=== PATIENT | female | born 1950 | race African-American/Black ===

== ENCOUNTER 2018-01-23 10:39 | Emergency (ER) | payer OTHER ==
[2018-01-23] MEDS ORDERED: ONDANSETRON 4 MG (ODT) TAB ONE (12:17)
--- NOTE | 2018-01-23 12:40 | RAD REPORT ---
EXAM DESCRIPTION: CT - Head Brain Wo Cont - 01/23/2018 12:29 pm CLINICAL HISTORY: Headache, hypertension. COMPARISON: 11/28/2017, 10/21/2016 TECHNIQUE: All CT scans are performed using dose optimization technique as appropriate and may inclu de automated exposure control or mA/KV adjustment according to patient size. FINDINGS: No intracranial hemorrhage, hydrocephalus or extra-axial fluid collection.Mild generalized brain atrophy is present with mild periventricular and deep white matter chronic microvascular ische leonard changes.No areas of brain edema or evidence of midline shift. The paranasal sinuses and mastoids are clear. The calvarium is intact. IMPRESSION: No acute intracranial abnormality.
--- NOTE | 2018-01-23 12:53 | EDPHYS ---
Physician Documentation [facility] Name: Cole Cadena Age: 67 yrs Sex: Female : 1950 Arrival Date: 01/23/2018 Time: 10:45 Bed 13 Private MD: ED Physician Alvin Cunha HPI: 01/23 12:11 This 67 yrs old Black Female presents to ER via Ambulatory with complaints of High snw Blood Pressure, Headache. 12:11 The patient has elevated blood pressure and discovered this at home. Onset: The snw symptoms/episode began/occurred gradually, yesterday. Modifying factors: The symptoms are aggravated by pt was nauseated and vomiting and did not take her bp medications today. Associated signs and symptoms: The patient has no apparent associated signs or symptoms. Severity of symptoms: At its worst the blood pressure was 210 mm Hg. It is unknown whether or not the patient has had similar symptoms in the past. The patient has not recently seen a physician, the patient's primary care provider is Dr. Dr. Hearn. . 12:13 on entrance to pt's room, she asked me to change the channel on her tv. snw Historical: - Allergies: 10:54 Tramadol HCl; hj - Home Meds: 10:54 amlodipine 10 mg tab 1 tab once daily for Hypertension [Active]; Hydrochlorothiazide hj Oral [Active]; Hydrocodone-Acetaminophen Oral 1 cap twice a day [Active]; lisinopril 40 mg Oral tab 1 tab once daily [Active]; omeprazole 20 mg Oral cpDR 1 cap once daily for Gastroesophageal reflux [Active]; - PMHx: 10:54 Anxiety; Depression; GERD; Hypertension; hj - PSHx: 10:54 Tubal ligation; ankle (left); hj - Immunization history:: Adult Immunizations up to date. - Social history:: Smoking status: unknown. ROS: 12:09 Constitutional: Negative for fever, chills, and weight loss, + right sided facial pain snw Eyes: Negative for injury, pain, redness, and discharge, ENT: Negative for injury, pain, and discharge, Neck: Negative for injury, pain, and swelling, Cardiovascular: Negative for chest pain, palpitations, and edema, Respiratory: Negative for shortness of breath, cough, wheezing, and pleuritic chest pain, Abdomen/GI: Positive for abdominal tenderness, nausea, vomiting, diarrhea, negative for constipation, Back: Negative for injury and pain, : Negative for injury, bleeding, discharge, and swelling, MS/Extremity: Negative for injury and deformity, Skin: Negative for injury, rash, and discoloration, Neuro: Negative for headache, weakness, numbness, tingling, and seizure. Exam: 12:09 Constitutional: This is a well developed, well nourished patient who is awake, alert, snw and in no acute distress. Head/Face: Normocephalic, atraumatic. Eyes: Pupils equal round and reactive to light, extra-ocular motions intact. Lids and lashes normal. Conjunctiva and sclera are non-icteric and not injected. Cornea within normal limits. Periorbital areas with no swelling, redness, or edema. ENT: Nares patent. No nasal discharge, no septal abnormalities noted. Tympanic membranes are normal and external auditory canals are clear. Oropharynx with no redness, swelling, or masses, exudates, or evidence of obstruction, uvula midline. Mucous membranes moist. Neck: Trachea midline, no thyromegaly or masses palpated, and no cervical lymphadenopathy. Supple, full range of motion without nuchal rigidity, or vertebral point tenderness. No Meningismus. Chest/axilla: Normal chest wall appearance and motion. Nontender with no deformity. No lesions are appreciated. Cardiovascular: Regular rate and rhythm with a normal S1 and S2. No gallops, murmurs, or rubs. Normal PMI, no JVD. No pulse deficits. Respiratory: Lungs have equal breath sounds bilaterally, clear to auscultation and percussion. No rales, rhonchi or wheezes noted. No increased work of breathing, no retractions or nasal flaring. Abdomen/GI: Soft, non-tender, with normal bowel sounds. No distension or tympany. No guarding or rebound. No evidence of tenderness throughout. Back: No spinal tenderness. No costovertebral tenderness. Full range of motion. Skin: Warm, dry with normal turgor. Normal color with no rashes, no lesions, and no evidence of cellulitis. MS/ Extremity: Pulses equal, no cyanosis. Neurovascular intact. Full, normal range of motion. Neuro: Awake and alert, GCS 15, oriented to person, place, time, and situation. Cranial nerves II-XII grossly intact. Motor strength 5/5 in all extremities. Sensory grossly intact. Cerebellar exam normal. Normal gait. Vital Signs: 10:54 BP 159 / 105; Pulse 85; Resp 18; Temp 98.3(TE); Pulse Ox 99% on R/A; Weight 95.25 kg; hj Height 5 ft. 2 in. (157.48 cm); Pain 9/10; 12:08 BP 156 / 112; Pulse 72; Resp 18; Pulse Ox 99% ; aj1 13:46 BP 136 / 105; Pulse 73; Resp 18; Pulse Ox 99% on R/A; aj1 10:54 Body Mass Index 38.41 (95.25 kg, 157.48 cm) hj MDM: 11:54 Patient medically screened. snw 12:50 Data reviewed: vital signs, nurses notes. Data interpreted: Pulse oximetry: on room air snw is 99 %. Interpretation: normal. Counseling: I had a detailed discussion with the patient and/or guardian regarding: the historical points, exam findings, and any diagnostic results supporting the discharge/admit diagnosis, the presence of at least one elevated blood pressure reading (>120/80) during this emergency department visit, radiology results, the need for outpatient follow up, to return to the emergency department if symptoms worsen or persist or if there are any questions or concerns that arise at home. Special discussion: Based on the history and exam findings, there is no indication for further emergent testing or inpatient evaluation. I discussed with the patient/guardian the need to see the neurologist for further evaluation of the symptoms. I discussed with the patient/guardian the need to see the primary care provider for further evaluation of the symptoms. Repeated CT, danger of excess radiation. 01/23 12:13 Order name: CT Head Brain wo Cont; Complete Time: 12:50 snw Administered Medications: 12:20 Drug: Zofran 4 mg Route: PO; aj1 13:50 Follow up: Response: No adverse reaction aj1 Disposition: 01/23/18 12:52 Discharged to Home. Impression: Headache, Essential (primary) hypertension, facial pain. - Condition is Stable. - Discharge Instructions: General Headache Without Cause, Hypertension, DASH Eating Plan, Managing Your High Blood Pressure. - Prescriptions for Zyrtec 10 mg Oral Tablet - take 1 tablet by ORAL route once daily As needed; 20 tablet. orphenadrine citrate 100 mg Oral Tablet Sustained Release - take 1 tablet by ORAL route 2 times per day As needed; 20 tablet. promethazine 25 mg Oral Tablet - take 1 tablet by ORAL route every 6 hours As needed; 20 tablet. - Medication Reconciliation Form, Thank You Letter, Antibiotic Education, Prescription Opioid Use form. - Follow up: Private Physician; When: Tomorrow; Reason: Recheck today's complaints, Continuance of care, Re-evaluation by your physician. Follow up: Emergency Department; When: As needed; Reason: Worsening of condition. Addendum: 01/26/2018 06:11 Co-signature as Attending Physician, Alvin Cunha MD Available for consultation at p s1 all times. . Signatures: Dispatcher [employer] EDMS Brittany Palomino RN RN aj1 Danika Allison, SURGERY AIDE-C SURGERY AIDE-Csnw Parminder Augustine RN RN hj Alvin Cunha MD MD ps1 Corrections: (The following items were deleted from the chart) 01/23 12:11 12:09 Constitutional: Negative for fever, chills, and weight loss, Eyes: Negative for snw injury, pain, redness, and discharge, ENT: Negative for injury, pain, and discharge, Neck: Negative for injury, pain, and swelling, Cardiovascular: Negative for chest pain, palpitations, and edema, Respiratory: Negative for shortness of breath, cough, wheezing, and pleuritic chest pain, Abdomen/GI: Positive for abdominal tenderness, nausea, vomiting, diarrhea, negative for constipation, Back: Negative for injury and pain, : Negative for injury, bleeding, discharge, and swelling, MS/Extremity: Negative for injury and deformity, Skin: Negative for injury, rash, and discoloration, Neuro: Negative for headache, weakness, numbness, tingling, and seizure, snw
--- NOTE | 2018-01-23 12:53 | ER ---
Nurse's Notes [facility] Name: Cole Cadena Age: 67 yrs Sex: Female : 1950 Arrival Date: 01/23/2018 Time: 10:45 Bed 13 Private MD: Diagnosis: Headache;Essential (primary) hypertension;facial pain Presentation: 01/23 10:51 Presenting complaint: Patient states: yesterday, i started having pain on my R side of hj the face and head, and my BP was up; did not take aBP meds today;. Transition of care: patient was not received from another setting of care. Onset of symptoms was January 23, 2018. Care prior to arrival: None. 10:51 Method Of Arrival: Ambulatory 10:51 Acuity: DYLAN 3 hj Triage Assessment: 10:54 Headache History: The patient has had previous headaches. General: Appears in no hj apparent distress. uncomfortable, Behavior is calm, cooperative, appropriate for age. Pain: Complains of pain in head Pain currently is 9 out of 10 on a pain scale. Pain began Also complains of nausea. Neuro: Level of Consciousness is awake, alert, obeys commands, Oriented to person, place, time, situation, Appropriate for age. Historical: - Allergies: 10:54 Tramadol HCl; hj - Home Meds: 10:54 amlodipine 10 mg tab 1 tab once daily for Hypertension [Active]; Hydrochlorothiazide hj Oral [Active]; Hydrocodone-Acetaminophen Oral 1 cap twice a day [Active]; lisinopril 40 mg Oral tab 1 tab once daily [Active]; omeprazole 20 mg Oral cpDR 1 cap once daily for Gastroesophageal reflux [Active]; - PMHx: 10:54 Anxiety; Depression; GERD; Hypertension; hj - PSHx: 10:54 Tubal ligation; ankle (left); hj - Immunization history:: Adult Immunizations up to date. - Social history:: Smoking status: unknown. Screenin:08 Abuse screen: Denies threats or abuse. Denies injuries from another. Nutritional aj1 screening: No deficits noted. Tuberculosis screening: No symptoms or risk factors identified. 13:48 Fall Risk None identified. aj1 Assessment: 12:08 General: Appears in no apparent distress. uncomfortable, Behavior is calm, cooperative, aj1 appropriate for age. Pain: Complains of pain in occipital area, base of the skull and neck Pain does not radiate. Pain currently is 9 out of 10 on a pain scale. Quality of pain is described as throbbing, Pain began 1 day ago. Is continuous, Alleviated by nothing. Aggravated by nothing. Neuro: Level of Consciousness is awake, alert, obeys commands, Oriented to person, place, time, situation, Staff Developer are equal bilaterally Moves all extremities. Full function Speech is normal, Facial symmetry appears normal, Pupils are PERRLA, Intact. Cardiovascular: Heart tones S1 S2 present Patient's skin is warm and dry. Respiratory: Airway is patent Respiratory effort is even, unlabored, Respiratory pattern is regular, symmetrical. GI: No signs and/or symptoms were reported involving the gastrointestinal system. : No signs and/or symptoms were reported regarding the genitourinary system. EENT: No signs and/or symptoms were reported regarding the EENT system. Derm: No signs and/or symptoms reported regarding the dermatologic system. Skin is pink, warm \T\ dry. normal. Musculoskeletal: No signs and/or symptoms reported regarding the musculoskeletal system. Circulation, motion, and sensation intact. 13:21 Reassessment: Patient appears in no apparent distress at this time. No changes from aj1 previously documented assessment. Patient and/or family updated on plan of care and expected duration. Pain level reassessed. Patient is alert, oriented x 3, equal unlabored respirations, skin warm/dry/pink. Vital Signs: 10:54 BP 159 / 105; Pulse 85; Resp 18; Temp 98.3(TE); Pulse Ox 99% on R/A; Weight 95.25 kg; hj Height 5 ft. 2 in. (157.48 cm); Pain 9/10; 12:08 BP 156 / 112; Pulse 72; Resp 18; Pulse Ox 99% ; aj1 13:46 BP 136 / 105; Pulse 73; Resp 18; Pulse Ox 99% on R/A; aj1 10:54 Body Mass Index 38.41 (95.25 kg, 157.48 cm) ED Course: 10:45 Patient arrived in ED. mr 10:53 Triage completed. hj 10:54 Arm band placed on left wrist. hj 11:53 Danika Allison [facility]NP-C [facility]. snw 11:53 Alvin Cunha MD is Attending Physician. snw 12:08 Brittany Palomino, RN is Primary Nurse. aj1 12:29 CT Head Brain wo Cont In Process Unspecified. EDMS 13:48 Patient has correct armband on for positive identification. aj1 13:48 No provider procedures requiring assistance completed. aj1 13:48 Patient did not have IV access during this emergency room visit. aj1 Administered Medications: 12:20 Drug: Zofran 4 mg Route: PO; aj1 13:50 Follow up: Response: No adverse reaction aj1 Outcome: 12:52 Discharge ordered by . snw 13:49 Discharged to home ambulatory. aj1 13:49 Condition: good 13:49 Discharge instructions given to patient, Instructed on discharge instructions, follow up and referral plans. medication usage, Demonstrated understanding of instructions, follow-up care, medications, Prescriptions given X 3. 13:50 Patient left the ED. aj1 Signatures: Dispatcher [employer] EDAR Brittany Palomino, RN RN aj1 Danika Allison, SENIOR MEDIA BUYER-C SENIOR MEDIA BUYER-Noy Meyers Henry RN RN
[2018-01-23 13:56] VITALS: TEMP 98.3; O2SAT 99
[2018-01-23 13:59] VITALS: BP 136/105
== END 2018-01-23 13:50 | disposition home or self-care (01) ==
LOC: ER 10:39
DX: I10 Essential (primary) hypertension (principal); F41.9 Anxiety disorder, unspecified; F32.9 Major depressive disorder, single episode, unspecified; K21.9 Gastro-esophageal reflux disease without esophagitis; Z88.6 Allergy status to analgesic agent
CPT/HCPCS: 70450; 99283

== ENCOUNTER 2019-02-11 12:14 | Observation (INO) | payer OTHER ==
--- OUTSIDE RECORDS SUMMARY | 2019-02-11 12:20 | XMS REPORT | Clinical Summary ---
:1950 Author Organization [facility] Address [address] [place] [address] Care Team Providers Name Role Phone Jonelle Milian MD Primary Care Provider Allergies Active Allergy Reactions Severity Noted Date Comments Tramadol 12/11/2018 Medications Medication Sig Dispensed Refills Start Date End Date Status ALPRAZolam (XANAX) 2 MG Take 2 mg by 0 Active tablet mouth 3 (three) times daily as needed for Sleep. HYDROcodone-acetaminophen Take 1 tablet 0 Active (NORCO 7.5-325) 7.5-325 by mouth 2 mg per tablet (two) times daily as needed for Pain. carvedilol (COREG) 25 MG Take 25 mg by 0 Active tablet mouth 2 (two) times daily with breakfast and dinner. cycloSPORINE (RESTASIS) Place 1 drop 0 Active 0.05 % ophthalmic into both eyes emulsion 2 (two) times daily. predniSONE (DELTASONE) 20 Take 20 mg by 0 Active MG tablet mouth daily. amLODIPine (NORVASC) 10 Take 10 mg by 0 Active MG tablet mouth daily. aspirin 81 MG EC tablet Take 1 tablet 30 tablet 0 12/13/2018 (81 mg total) 9 by mouth daily for 30 days. atorvastatin (LIPITOR) 80 Take 1 tablet 30 tablet 0 12/13/2018 MG tablet (80 mg total) 9 by mouth nightly for 30 days. hydrALAZINE (APRESOLINE) Take 1 tablet 90 tablet 0 12/13/2018 25 MG tablet (25 mg total) 9 by mouth every 8 (eight) hours for 30 days. hydroCHLOROthiazide Take 1 tablet 30 tablet 0 12/13/2018 (HYDRODIURIL) 25 MG (25 mg total) 9 tablet by mouth daily for 30 days. lisinopril Take 1 tablet 30 tablet 0 12/13/2018 (PRINIVIL,ZESTRIL) 40 MG (40 mg total) 9 tablet by mouth daily for 30 days. Active Problems Problem Noted Date NSTEMI (non-ST elevation myocardial infarction) 12/11/2018 Encounters Date Type Specialty Care Team Description 01/01/2019 Telephone Cardiology Vaibhav Kwong NO SHOW APPT MD [facility] 12/13/2018 Travel 12/12/2018 Surgery Vaibhav Kwong L CATH & PCI MD [facility] ([place] 12/11/2018 - Hospital Encounter General Internal Jonelle Milian NSTEMI (non-ST 12/13/2018 Medicine MD [facility] elevation myocardial infarction) (HCC) (Primary Dx) after 02/10/2018 Social History Tobacco Use Types Packs/Day Years Used Date Never Smoker Smokeless Tobacco: Never Used Sex Assigned at Date Recorded Not on file Job Start Date Occupation Industry Not on file Not on file Not on file Travel History Travel Start Travel End No recent travel history available. Last Filed Vital Signs Vital Sign Reading Time Taken Blood Pressure 162/88 12/13/2018 11:55 [facility] Pulse 86 12/13/2018 11:55 [facility] Temperature 37.5 C (99.5 F) 12/13/2018 11:55 [facility] Respiratory Rate 20 12/13/2018 11:55 [facility] Oxygen Saturation 96% 12/13/2018 11:55 [facility] Inhaled Oxygen Concentration - - Weight 98.4 kg (217 lb) 12/11/2018 4:45 [facility] Height 157.5 cm (5' 2") 12/11/2018 4:45 [facility] Body Mass Index 39.69 12/11/2018 4:45 [facility] Plan of Treatment Not on file Procedures Procedure Name Priority Date/Time Associated Comments Diagnosis REPORT OF PROCEDURE - 12/17/2018 10:51 ENDOSCOPY SCAN AM CDT RHYTHM STRIP - SCAN 12/17/2018 10:51 AM CDT CARDIAC CATH REPORT - 12/17/2018 10:51 SCAN AM CDT POCT-GLUCOSE METER Routine 12/13/2018 12:03 Results for this [facility] procedure are in the results section. CALCIUM, IONIZED Routine 12/13/2018 4:52 Results for this [facility] procedure are in the results section. CBC W/PLT COUNT & AUTO Routine 12/13/2018 4:50 Results for this DIFFERENTIAL [facility] procedure are in the results section. CBC W/PLT COUNT & AUTO Routine 12/13/2018 4:50 Results for this DIFFERENTIAL [facility] procedure are in the results section. PHOSPHORUS Routine 12/13/2018 4:50 Results for this [facility] procedure are in the results section. MAGNESIUM Routine 12/13/2018 4:50 Results for this [facility] procedure are in the results section. PROTHROMBIN TIME/INR Routine 12/13/2018 4:50 Results for this [facility] procedure are in the results section. PT/APTT Routine 12/13/2018 4:50 Results for this [facility] procedure are in the results section. HEPATIC FUNCTION PANEL Routine 12/13/2018 4:50 Results for this [facility] procedure are in the results section. BASIC METABOLIC PANEL Routine 12/13/2018 4:50 Results for this (7) [facility] procedure are in the results section. L CATH & PCI 12/12/2018 1:00 Acute coronary [facility] syndrome (HCC) PHOSPHORUS Routine 12/12/2018 4:38 Results for this [facility] procedure are in the results section. MAGNESIUM Routine 12/12/2018 4:38 Results for this [facility] procedure are in the results section. PROTHROMBIN TIME/INR Routine 12/12/2018 4:38 Results for this [facility] procedure are in the results section. PT/APTT Routine 12/12/2018 4:38 Results for this [facility] procedure are in the results section. HEPATIC FUNCTION PANEL Routine 12/12/2018 4:38 Results for this [facility] procedure are in the results section. CALCIUM, IONIZED Routine 12/12/2018 4:38 Results for this [facility] procedure are in the results section. BASIC METABOLIC PANEL Routine 12/12/2018 4:38 Results for this (7) [facility] procedure are in the results section. TROPONIN I Routine 12/11/2018 3:18 Results for this [facility] procedure are in the results section. URINE CULTURE Routine 12/11/2018 2:52 Results for this [facility] procedure are in the results section. ECHOCARDIOGRAM REPORT - 12/11/2018 10:50 SCAN AM [facility] CT CHEST PE TEST DESIGN STAT 12/11/2018 9:30 Results for this [facility] procedure are in the results section. XR CHEST 1 VIEW Routine 12/11/2018 8:50 Results for this PORTABLE/BEDSIDE [facility] procedure are in the results section. 2D ECHO W/ DOPPLER Routine 12/11/2018 8:38 Results for this (CW/PW/COLOR) [facility] procedure are in the results section. CBC W/PLT COUNT & AUTO Routine 12/11/2018 6:48 Results for this DIFFERENTIAL [facility] procedure are in the results section. HEMOGLOBIN A1C Routine 12/11/2018 6:48 Results for this [facility] procedure are in the results section. LIPID PANEL Routine 12/11/2018 6:48 Results for this [facility] procedure are in the results section. MAGNESIUM Routine 12/11/2018 6:48 Results for this [facility] procedure are in the results section. COMPREHENSIVE METABOLIC Routine 12/11/2018 6:48 Results for this PANEL [facility] procedure are in the results section. CBC W/PLT COUNT & AUTO Routine 12/11/2018 6:48 Results for this DIFFERENTIAL [facility] procedure are in the results section. TROPONIN I Routine 12/11/2018 6:48 Results for this [facility] procedure are in the results section. after 02/10/2018 Results EKG-SCANNED (12/17/2018 10:51 AM CDT) Narrative Performed At RHYTHM STRIP - SCAN (12/17/2018 10:51 AM CDT) Narrative Performed At CARDIAC CATH REPORT - SCAN (12/17/2018 10:51 AM CDT) Narrative Performed At POC-Glucose meter (12/13/2018 12:03 [facility]) POC-Glucose Meter 131 (H)Comment: TESTED AT 70 - 110 mg/dL [facility] [address] [facility] [place] [id number] Specimen Blood Performing Organization Address City/State/Zipcode Phone Number [facility] [address] [place] [address] [phone] CENTER Calcium, Ionized (12/13/2018 4:52 AM [facility])Only the most recent of2 resultswithin the time period is included. Calcium, Ion 1.18 1.12 - 1.27 mmol/L [facility] pH, Blood 7.45 [facility] Specimen Blood Performing Organization Address City/[facility]/Zipcode Phone Number [facility] [address] [place], [place] [phone] PT/aPTT (12/13/2018 4:50 AM [facility])Only the most recent of2 resultswithin the time period is included. Protime 11.8 9.3 - 12.0 sec [facility] INR 1.1 <=5.9 [facility] PTT 35.0 23.0 - 35.0 sec [facility] Specimen Blood Narrative Performed At RECOMMENDED COUMADIN/WARFARIN INR THERAPY RANGES [facility] STANDARD DOSE: 2.0 - 3.0 Includes: PROPHYLAXIS for venous thrombosis, systemic embolization; TREATMENT for venous thrombosis and/or pulmonary embolus. HIGH RISK: Target INR is 2.5-3.5 for patients with mechanical heart valves. Final Information (Auto Output) Final Information (Auto Output) Final Information (Auto Output) Performing Organization Address City/[facility] Phone Number [facility] [address] [place] [address] [phone] CBC with platelet count + automated diff (12/13/2018 4:50 AM [facility])Only the most recent of2 resultswithin the time period is included. WBC 11.0 (H) 4.0 - 10.0 K/L [facility] RBC 4.74 4.00 - 5.00 M/L [facility] Hemoglobin 13.3 12.0 - 15.5 GM/DL [facility] Hematocrit 42.9 36.0 - 46.0 % [facility] MCV 90.5 82.0 - 99.0 fL [facility] MCH 28.1 27.0 - 33.0 pg [facility] MCHC 31.0 (L) 32.0 - 36.0 GM/DL [facility] RDW 13.8 12.0 - 15.0 % [facility] Platelets 183 150 - 430 K/CU MM [facility] MPV 11.7 (H) 6.0 - 11.5 fL [facility] nRBC 0 0 - 0 /100 WBC [facility] % Neutros 68 % [facility] % Lymphs 23 % [facility] % Monos 8 % [facility] % Eos 0 % [facility] % Baso 0 % [facility] # Neutros 7.52 1.80 - 8.00 K/L [facility] # Lymphs 2.53 1.48 - 4.50 K/L [facility] # Monos 0.88 0.00 - 1.30 K/L [facility] # Eos 0.01 0.00 - 0.50 K/L [facility] # Baso 0.01 0.00 - 0.20 K/L [facility] Immature Granulocytes-Relative 1 (H) 0 - 0 % [facility] Specimen Blood Performing Organization Address City/[facility] Hospital[facility] Phone Number [facility] [address] [place], [place] [phone] Prothrombin time/INR (12/13/2018 4:50 AM [facility])Only the most recent of2 resultswithin the time period is included. Protime 11.8 9.3 - 12.0 seconds [facility] INR 1.1 <=5.9 [facility] Specimen Blood Narrative Performed At RECOMMENDED COUMADIN/WARFARIN INR THERAPY RANGES [facility] STANDARD DOSE: 2.0 - 3.0 Includes: PROPHYLAXIS for venous thrombosis, systemic embolization; TREATMENT for venous thrombosis and/or pulmonary embolus. HIGH RISK: Target INR is 2.5-3.5 for patients with mechanical heart valves. Performing Organization Address [facility] Phone Number [facility] [address] [place] [phone] Phosphorus (12/13/2018 4:50 AM [facility])Only the most recent of2 resultswithin the time period is included. Phosphorus 2.6 2.5 - 4.5 mg/dL [facility] Specimen Blood Performing Organization Address City/[facility]/Zipcode Phone Number [facility] [address] [place], [place] [phone] Magnesium (12/13/2018 4:50 AM [facility])Only the most recent of3 resultswithin the time period is included. Magnesium 2.0 1.5 - 3.0 mg/dL [facility] Specimen Blood Performing Organization Address [facility] Phone Number [facility] [address] [place] [address] Hepatic function panel (12/13/2018 4:50 AM [facility])Only the most recent of2 resultswithin the time period is included. Protein, Total 7.1 6.0 - 8.5 gm/dL [facility] Albumin 3.9 3.5 - 5.0 g/dL [facility] Total Bilirubin 0.4 0.1 - 1.2 mg/dL [facility] Bilirubin, Direct 0.2 0.0 - 0.4 mg/dL [facility] Alkaline Phosphatase 98 30 - 115 U/L [facility] AST 19 5 - 40 U/L [facility] ALT 36 5 - 50 U/L [facility] Specimen Blood Performing Organization Address [facility] Phone Number [facility] [address] [place] [address] Basic metabolic panel (12/13/2018 4:50 AM [facility])Only the most recent of2 resultswithin the time period is included. Sodium 133 (L) 135 - 148 meq/L [facility] Potassium 4.0 3.6 - 5.5 meq/L [facility] Chloride 103 98 - 106 meq/L [facility] CO2 22 20 - 29 meq/L [facility] BUN 14 10 - 26 mg/dL [facility] Creatinine 0.71 0.50 - 1.20 mg/dL [facility] Glucose 100 70 - 110 mg/dL [facility] Calcium 9.3 8.5 - 10.5 mg/dL [facility] EGFR 99Comment: ESTIMATED GFR IS NOT mL/min/1.73 sq m [facility] ACCURATE CREATININE CLEARANCE IN PREDICTING GLOMERULAR FILTRATION RATE. ESTIMATED GFR IS NOT APPLICABLE FOR DIALYSIS PATIENTS. Specimen Blood Performing Organization Address City/[facility] Phone Number [facility] [address] [place], [place] [phone] Troponin I (12/11/2018 3:18 PM [facility])Only the most recent of2 resultswithin the time period is included. Troponin I <0.03 0.00 - 0.15 ng/mL [facility] Specimen Blood Narrative Performed At Troponin I (TnI) levels must be interpreted in the context of [facility] the presenting symptoms and the clinical findings. Elevated TnI levels indicate myocardial damage, but are not specific for ischemic heart disease. Elevated TnI levels are seen in patients with other cardiac conditions (including myocarditis and congestive heart failure), and slight TnI elevations occur in patients with other conditions, including sepsis, renal failure, acidosis, acute neurological disease, and persistent tachyarrhythmia. Performing Organization Address City/[facility] Phone Number [facility] [address] [place] [phone] Urine culture (12/11/2018 2:52 PM [facility]) Result ESCHERICHIA COLI (A) [facility] Specimen Urine Narrative Performed At <10,000 col/mL skin nargis [facility] Organism Antibiotic Method Susceptibility Escherichia coli Ampicillin + Sulbactam 16: Intermediate Escherichia coli Cefepime <=1: Susceptible Escherichia coli Cefoxitin <=4: Susceptible Escherichia coli Ceftriaxone <=1: Susceptible Escherichia coli Gentamicin <=1: Susceptible Escherichia coli Levofloxacin <=0.12: Susceptible Escherichia coli Meropenem <=0.25: Susceptible Escherichia coli Nitrofurantoin <=16: Susceptible Escherichia coli Piperacillin + Tazobactam <=4: Susceptible Escherichia coli Tetracycline >=16: Resistant Escherichia coli Tobramycin <=1: Susceptible Escherichia coli Trimethoprim + Sulfamethoxazole >=320: Resistant Performing Organization Address [facility] Phone Number [address] [phone] ECHOCARDIOGRAM REPORT - SCAN (12/11/2018 10:50 AM [facility]) Narrative Performed At CT chest for pulmonary embolus (12/11/2018 9:30 AM [facility]) Specimen Narrative Performed At FINAL REPORT [facility] CT of the chest, pulmonary embolism protocol Clinical History:Chest pain, acute, PE suspected, intermed prob, positive D-dimer Technique:Precontrast axial images at the level of the pulmonary outflow tract are obtained for the purpose of contrast bolus tracking.Postcontrast axial images of the chest are subsequently obtained with optimal pulmonary arterial enhancement followed by delayed postcontrast images. Coronal 2D reformatted images are reviewed. This exam was performed according to our departmental dose optimization program which includes automated exposure control, adjustment of the mA and/or kV according to patient's size and/or use of iterative reconstructive technique. Comparison Film:None Discussion: No filling defects are identified within the pulmonary arteries to suggest acute pulmonary embolism. Visualized thyroid gland is unremarkable. No supraclavicular, axillary mediastinal or hilar lymphadenopathy. Heart and pericardium are unremarkable. There is minimal atelectasis or scarring at the lung bases. No mass or consolidation is identified. No pleural effusion. The central airways are patent, no bronchiectasis, or bronchial wall thickening. Partially imaged upper abdomen is unremarkable. Osseous structures demonstrate mild degenerative changes. Impression: No PE is identified. No acute process identified in the thorax. Signed: Osmany Finch MD Report Verified Date/Time:12/11/2018 09:48:10 Reading Location: [facility] C0[facility] Ortho Consult Reading Room Procedure Note Interface, External Ris In - 12/11/2018 9:50 AM [facility] FINAL REPORT CT of the chest, pulmonary embolism protocol Clinical History: Chest pain, acute, PE suspected, intermed prob, positive D-dimer Technique: Precontrast axial images at the level of the pulmonary outflow tract are obtained for the purpose of contrast bolus tracking. Postcontrast axial images of the chest are subsequently obtained with optimal pulmonary arterial enhancement followed by delayed postcontrast images. Coronal 2D reformatted images are reviewed. This exam was performed according to our departmental dose optimization program which includes automated exposure control, adjustment of the mA and/or kV according to patient's size and/or use of iterative reconstructive technique. Comparison Film: None Discussion: No filling defects are identified within the pulmonary arteries to suggest acute pulmonary embolism. Visualized thyroid gland is unremarkable. No supraclavicular, axillary mediastinal or hilar lymphadenopathy. Heart and pericardium are unremarkable. There is minimal atelectasis or scarring at the lung bases. No mass or consolidation is identified. No pleural effusion. The central airways are patent, no bronchiectasis, or bronchial wall thickening. Partially imaged upper abdomen is unremarkable. Osseous structures demonstrate mild degenerative changes. Impression: No PE is identified. No acute process identified in the thorax. Signed: Osmany Finch MD Report Verified Date/Time: 12/11/2018 09:48:10 Reading Location: [facility] C0[facility] Ortho Consult Reading Room Performing Organization Address City/[facility] Phone Number [facility] R[facility] XR chest 1 view portable / bedside (12/11/2018 8:50 AM [facility]) Specimen Narrative Performed At FINAL REPORT [facility] Clinical History: PULM EDEMA Comparison Study: None Findings:The heart and lungs are within normal limits.The pleural spaces are clear.No significant bony or soft tissue abnormalities are seen. Impression: No active cardiopulmonary disease. Signed: David Rodriguez MD Report Verified Date/Time:12/11/2018 09:10:32 Reading Location: [facility] Radiology Reading Room Procedure Note Interface, External Ris In - 12/11/2018 9:12 AM [facility] FINAL REPORT Clinical History: PULM EDEMA Comparison Study: None Findings: The heart and lungs are within normal limits. The pleural spaces are clear. No significant bony or soft tissue abnormalities are seen. Impression: No active cardiopulmonary disease. Signed: David Rodriguez MD Report Verified Date/Time: 12/11/2018 09:10:32 Reading Location: [facility] Radiology Reading Room Performing Organization Address [facility] Phone Number [facility] 2D Echo W/Doppler(CW/PW/Color) (12/11/2018 8:38 AM [facility]) Ejection Fraction [facility] Specimen Narrative Performed At Transthoracic Echocardiography Report (TTE) [facility] Demographics Patient NameELEJOGUN, Date of Study12/11/2018 COLE Female Visit [id number] Black Room [id number] Number Date of 1950Referring Physician Age 68 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 Physician Procedure Type of Study TTE procedure:2DECHO W DOPPLER(CW/PW/COLOR) (Routine) Indications:Non STEMI. Clinical History non stemi Height: 62 inches Weight: 95.25 kg (210 lbs) BSA: 1.95 m^2 BMI: 38.41 kg/m^2 HR: 73 bpm BP: 113/65 mmHg Summary Normal LV systolic function with an estimated LVEF of 60-64%. Grade 1 diastolic dysfunction There appears to be no significant functional valvular abnormality seen. Cannot estimate PA systolic pressure due insufficient TR jet. No pericardial effusion. No previous study to compare from. Signature Findings Technical Quality: Limited visualization Left Ventricle The left ventricle is normal in size, wall th ickness, and contractility. Th e visual ejection fraction was estimated 60-64 %. Gr tiesha 1 diastolic dysfunction (impaired relaxation an d low-normal LA pressure). Left AtriumThe left atrium appears normal. Right VentricleThe right ventricular chamber size and systolic fu nction are within normal limits. Right Atrium RA size is normal. Aortic Valve The aortic valve is not well visualized, but ap pears normal. Th ere is no aortic stenosis. Th ere is no aortic regurgitation. Mitral Valve Normal MV structure. Tr manuela mitral regurgitation. Tricuspid ValveThe tricuspid valve is not well visualized. No evidence of tricuspid regurgitation. Es timated peak systolic PA pressure is cannot be de termined due to inadequate TR velocity signal . Pulmonic Valve No evidence of pulmonary regurgitation. AortaAortic root size (SInus of Valsalva diameter) is no rmal . PericardiumNo pericardial effusion is visualized. IVC/SVC/PA/PV/PleuralThe inferior vena cava is not well visualized. Chambers/Structures Left Ventricle LVIDd: 4.29 cm LVEDV:82.47 ml LVIDs: 2.57 cm LVESV:24 ml LV Septum Diastolic: 1.2 cm LV Septum Systolic: 1.55 cmLV Length: 5.78 cm LV PW Diastolic: 1.44 cm LV FS: 40.1 % LV PW Systolic: 1.49 cm LVEDV Gipson's:45.23 ml LVEDVI: 23 ml/m^2 LVESV Gipson's:14.04 ml LVESVI: 7 ml/m^2 LVEF Gipson's: 69 % LVOT Diameter: 1.7 cm LVEF: 70.9 % Aorta Ao Root S of Vannessa.: 3.16 cm Doppler/Quantitative Measurements Mitral Valve MV Peak E-Wave: 0.46 m/sMV Peak A-Wave: 0.48 m/s P1/2t: 65.3 msecE/A Ratio: 0.96 Peak Velocity: 0.54 m/s Peak Gradient: 0.85 mmHg Mean Velocity: 0.4 m/sDeceleration Time: 252.4 msec Mean Gradient: 0.7 mmHg Area (continuity): 3.45 cm^2 MV Area (PHT): 3.37 cm^2 MV VTI: 10.2 cm MV Giuseppe. Peak: Aortic Valve Peak Velocity: 1.04 m/sMean Velocity: 0.71 m/s Peak Gradient: 4.31 mmHg Mean Gradient: 2.48 mmHg AV Area (continuity): 1.76 cm^2 AV VTI: 19.99 cm AV DVI: 0.78 LVOT Peak Velocity: 0.94 m/s Peak Gradient: 3.51 mmHg Mean Velocity: 0.71 m/s Mean Gradient: 2.28 mmHg LVOT Diameter: 1.7 cm LVOT VTI: 15.52 cm LVOT Area: 2.27 cm^2LVOT SV:35.21 ml LVOT CO: 2.57 l/min LVOT CI: 1.32 l/min/m^2 Pulmonic Valve Peak Velocity: 0.86 m/s Peak Gradient: 2.97 mmHg Procedure Note Interface, External Ris In - 12/11/2018 10:09 AM [facility] Transthoracic Echocardiography Report (TTE) Demographics Patient Name STEW, Date of Study 12/11/2018 COLE Gender Female Visit Number [id number] Race Black Room Number [id number] Number Date of 1950 Referring Physician 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 Physician Procedure Type of Study TTE procedure:2DECHO W DOPPLER(CW/PW/COLOR) (Routine) Indications:Non STEMI. Clinical History non stemi Height: 62 inches Weight: 95.25 kg (210 lbs) BSA: 1.95 m^2 BMI: 38.41 kg/m^2 HR: 73 bpm BP: 113/65 mmHg Summary Normal LV systolic function with an estimated LVEF of 60-64%. Grade 1 diastolic dysfunction There appears to be no significant functional valvular abnormality seen. Cannot estimate PA systolic pressure due insufficient TR jet. No pericardial effusion. No previous study to compare from. Signature Findings Technical Quality: Limited visualization Left Ventricle The left ventricle is normal in size, wall thickness, and contractility. The visual ejection fraction was estimated 60-64 %. Grade 1 diastolic dysfunction (impaired relaxation and low-normal LA pressure). Left Atrium The left atrium appears normal. Right Ventricle The right ventricular chamber size and systolic function are within normal limits. Right Atrium RA size is normal. Aortic Valve The aortic valve is not well visualized, but appears normal. There is no aortic stenosis. There is no aortic regurgitation. Mitral Valve Normal MV structure. Trace mitral regurgitation. Tricuspid Valve The tricuspid valve is not well visualized. No evidence of tricuspid regurgitation. Estimated peak systolic PA pressure is cannot be determined due to inadequate TR velocity signal . Pulmonic Valve No evidence of pulmonary regurgitation. Aorta Aortic root size (SInus of Valsalva diameter) is normal . Pericardium No pericardial effusion is visualized. IVC/SVC/PA/PV/Pleural The inferior vena cava is not well visualized. Chambers/Structures Left Ventricle LVIDd: 4.29 cm LVEDV:82.47 ml LVIDs: 2.57 cm LVESV:24 ml LV Septum Diastolic: 1.2 cm LV Septum Systolic: 1.55 cm LV Length: 5.78 cm LV PW Diastolic: 1.44 cm LV FS: 40.1 % LV PW Systolic: 1.49 cm LVEDV Gipson's:45.23 ml LVEDVI: 23 ml/m^2 LVESV Gipson's:14.04 ml LVESVI: 7 ml/m^2 LVEF Gipson's: 69 % LVOT Diameter: 1.7 cm LVEF: 70.9 % Aorta Ao Root S of Vannessa.: 3.16 cm Doppler/Quantitative Measurements Mitral Valve MV Peak E-Wave: 0.46 m/s MV Peak A-Wave: 0.48 m/s P1/2t: 65.3 msec E/A Ratio: 0.96 Peak Velocity: 0.54 m/s Peak Gradient: 0.85 mmHg Mean Velocity: 0.4 m/s Deceleration Time: 252.4 msec Mean Gradient: 0.7 mmHg Area (continuity): 3.45 cm^2 MV Area (PHT): 3.37 cm^2 MV VTI: 10.2 cm MV Giuseppe. Peak: Aortic Valve Peak Velocity: 1.04 m/s Mean Velocity: 0.71 m/s Peak Gradient: 4.31 mmHg Mean Gradient: 2.48 mmHg AV Area (continuity): 1.76 cm^2 AV VTI: 19.99 cm AV DVI: 0.78 LVOT Peak Velocity: 0.94 m/s Peak Gradient: 3.51 mmHg Mean Velocity: 0.71 m/s Mean Gradient: 2.28 mmHg LVOT Diameter: 1.7 cm LVOT VTI: 15.52 cm LVOT Area: 2.27 cm^2 LVOT SV:35.21 ml LVOT CO: 2.57 l/min LVOT CI: 1.32 l/min/m^2 Pulmonic Valve Peak Velocity: 0.86 m/s Peak Gradient: 2.97 mmHg Performing Organization Address City/State/Zipcode Phone Number [facility] Hemoglobin A1c (12/11/2018 6:48 AM CLUB FORMER) Hemoglobin A1C 6.1 4.3 - 6.1 % [facility] Specimen Blood Performing Organization Address [facility] Phone Number [facility] [address] [place] [address] [phone] Lipid panel (12/11/2018 6:48 AM CLUB FORMER) Triglycerides 95 mg/dL [facility] Cholesterol 180 mg/dL [facility] HDL 50 mg/dL [facility] LDL Calculated 111 mg/dL [facility] Specimen Blood Narrative Performed At Triglyceride Reference Range: [facility] Low Risk <150 [id number] High Risk 200-499 Very High Risk>=500 Cholesterol Reference Range: Low Risk <200 [id number] High Risk>240 HDL Cholesterol Reference Range: Low Risk >=60 High Risk <40 LDL Cholesterol Reference Range: Optimal<100 Near [id number] Very High >=190 Performing Organization Address [facility] Number [facility] [address] [place] [address] [phone] Comprehensive metabolic panel (12/11/2018 6:48 AM CLUB FORMER) Protein, Total 6.4 6.0 - 8.5 gm/dL [facility] Albumin 3.6 3.5 - 5.0 g/dL [facility] Alkaline Phosphatase 97 30 - 115 U/L [facility] Total Bilirubin 0.4 0.1 - 1.2 mg/dL [facility] Sodium 139 135 - 148 meq/L [facility] Potassium 3.7 3.6 - 5.5 meq/L [facility] Chloride 108 (H) 98 - 106 meq/L [facility] CO2 24 20 - 29 meq/L [facility] BUN 18 10 - 26 mg/dL [facility] Creatinine 0.78 0.50 - 1.20 mg/dL [facility] Glucose 105 70 - 110 mg/dL [facility] Calcium 8.5 8.5 - 10.5 mg/dL [facility] AST 24 5 - 40 U/L [facility] ALT 43 5 - 50 U/L [facility] EGFR 89Comment: ESTIMATED GFR mL/min/1.73 sq m [facility] IS NOT ACCURATE CREATININE CLEARANCE IN PREDICTING GLOMERULAR FILTRATION RATE. ESTIMATED GFR IS NOT APPLICABLE FOR DIALYSIS PATIENTS. Specimen Blood Performing Organization Address [facility]/State/Zipcode Phone Number [facility] [address] [place] [address] after 02/10/2018 Insurance Payer Benefit Plan / Group Subscriber ID Type Phone Address MEDICARE MEDICARE A B xxxxxxxxxxx Medicare [place] MED[place] MED[place]ID [place] xxxxxxxxx Advance Directives For more information, please contact:[address] [phone] Code Status Date Activated Date Inactivated Comments Full Code 12/11/2018 5:02 AM 12/13/2018 5:56 PM This code status was determined by: Patient
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
--- OUTSIDE RECORDS SUMMARY | 2019-02-11 12:21 | XMS REPORT ---
:1950 [facility] [address] [place] [address] Dr. Reveles [address] [place] [id number] Care Team Providers Name Role Phone SYLVESTER GOMEZ Unavailable Unavailable Problems This patient has no known problems. Allergies, Adverse Reactions, Alerts This patient has no known allergies or adverse reactions. Medications This patient has no known medications. Results Test Description Test Time Test Comments Text Results Atomic Results Result Comments POCT-GLUCOSE METER 2018-12-13 12:33:00 Test Item Value Reference Range Comments POC-GLUCOSE METER ([employer]) (test 131 mg/dL 70-110 TESTED AT [facility] [address] kzxf=0594) [facility] [address] URINE [id number] 07:56:00 Test Item Value Reference Range Comments CULTURE (BEAKER) (test ESCHERICHIA COLI 20-29,000 col/mL hags=9806) Escherichia coli Amikacin (test code=1) Ampicillin + Sulbactam (test code=6) Aztreonam (test code=32) Cefazolin (test code=9) Cefepime (test code=51) Cefoxitin (test code=68) Ceftazidime (test code=27) Ceftriaxone (test code=52) Ertapenem (test code=38) Gentamicin (test code=18) Levofloxacin (test code=22) Meropenem (test code=34) Nitrofurantoin (test code=23) Piperacillin + Tazobactam (test code=29) Tetracycline (test code=2) Tigecycline (test zawc=284) Tobramycin (test code=25) Trimethoprim + Sulfamethoxazole (test code=47) <10,000 col/mL skin floraHEPATIC FUNCTION [id number] 06:05:00 Test Item Value Reference Range Comments TOTAL PROTEIN (BEAKER) (test lvre=900) 7.1 gm/dL 6.0-8.5 ALBUMIN (BEAKER) (test hrzu=0629) 3.9 g/dL 3.5-5.0 BILIRUBIN TOTAL (BEAKER) (test pdld=211) 0.4 mg/dL 0.1-1.2 BILIRUBIN DIRECT (BEAKER) (test wyik=195) 0.2 mg/dL 0.0-0.4 ALKALINE PHOSPHATASE (BEAKER) (test ulnj=395) 98 U/L 30-115 AST (SGOT) (BEAKER) (test slok=188) 19 U/L 5-40 ALT (SGPT) (BEAKER) (test kfrt=337) 36 U/L 5-50 PT/[id number] 05:47:00 Test Item Value Reference Range Comments PROTIME (BEAKER) (test syye=662) 11.8 sec 9.3-12.0 INR (BEAKER) (test eabu=123) 1.1 <=5.9 PARTIAL THROMBOPLASTIN TIME (BEAKER) (test 35.0 sec 23.0-35.0 mwrh=944) RECOMMENDED COUMADIN/WARFARIN INR THERAPY RANGESSTANDARD DOSE: 2.0 - 3.0 Includes: PROPHYLAXIS forvenous thrombosis, systemic embolization; TREATMENT for venous thrombosis and/or pulmonary embolus.HIGH RISK: Target INR is 2.5-3.5 for patients with mechanical heart valves.Final Information (Auto Output)Final Information (Auto Output)Final Information (Auto Output)PROTHROMBIN [id number] 05:47:00 Test Item Value Reference Range Comments PROTIME (BEAKER) (test oifc=278) 11.8 seconds 9.3-12.0 INR (BEAKER) (test opgw=768) 1.1 <=5.9 RECOMMENDED COUMADIN/WARFARIN INR THERAPY RANGESSTANDARD DOSE: 2.0 - 3.0 Includes: PROPHYLAXIS forvenous thrombosis, systemic embolization; TREATMENT for venous thrombosis and/or pulmonary embolus.HIGH RISK: Target INR is 2.5-3.5 for patients with mechanical heart valves.BASIC METABOLIC [id number] 05:46: 00 Test Item Value Reference Range Comments SODIUM (BEAKER) (test 133 meq/L 135-148 dzge=579) POTASSIUM (BEAKER) (test 4.0 meq/L 3.6-5.5 nxtw=751) CHLORIDE (BEAKER) (test 103 meq/L 98-106 ohgz=558) CO2 (BEAKER) (test 22 meq/L 20-29 cuir=922) BLOOD UREA NITROGEN 14 mg/dL 10-26 (BEAKER) (test bzar=338) CREATININE (BEAKER) (test 0.71 mg/dL 0.50-1.20 ucvr=889) GLUCOSE RANDOM (BEAKER) 100 mg/dL 70-110 (test vqhk=670) CALCIUM (BEAKER) (test 9.3 mg/dL 8.5-10.5 ezob=651) EGFR (BEAKER) (test 99 mL/min/1.73 sq m ESTIMATED GFR IS NOT ezyr=1857) ACCURATE CREATININE CLEARANCE IN PREDICTING GLOMERULAR FILTRATION RATE. ESTIMATED GFR IS NOT APPLICABLE FOR DIALYSIS PATIENTS. [id number] 05:43:00 Test Item Value Reference Range Comments PHOSPHORUS (BEAKER) (test xbkd=802) 2.6 mg/dL 2.5-4.5 [id number] 05:38:00 Test Item Value Reference Range Comments MAGNESIUM (BEAKER) (test pkkf=059) 2.0 mg/dL 1.5-3.0 CBC W/PLT COUNT & AUTO [id number] 05:30:00 Test Item Value Reference Range Comments WHITE BLOOD CELL COUNT (BEAKER) (test lgkj=005) 11.0 K/ L 4.0-10.0 RED BLOOD CELL COUNT (BEAKER) (test mlah=206) 4.74 M/ L 4.00-5.00 HEMOGLOBIN (BEAKER) (test omgr=724) 13.3 GM/DL 12.0-15.5 HEMATOCRIT (BEAKER) (test jnnp=733) 42.9 % 36.0-46.0 MEAN CORPUSCULAR VOLUME (BEAKER) (test weun=485) 90.5 fL 82.0-99.0 MEAN CORPUSCULAR HEMOGLOBIN (BEAKER) (test 28.1 pg 27.0-33.0 iulc=702) MEAN CORPUSCULAR HEMOGLOBIN CONC (BEAKER) (test 31.0 GM/DL 32.0-36.0 cqiy=844) RED CELL DISTRIBUTION WIDTH (BEAKER) (test 13.8 % 12.0-15.0 pmra=351) PLATELET COUNT (BEAKER) (test pxwb=037) 183 K/CU MM 150-430 MEAN PLATELET VOLUME (BEAKER) (test rykk=274) 11.7 fL 6.0-11.5 NUCLEATED RED BLOOD CELLS (BEAKER) (test 0 /100 WBC 0-0 nktr=000) NEUTROPHILS RELATIVE PERCENT (BEAKER) (test 68 % rtxw=163) LYMPHOCYTES RELATIVE PERCENT (BEAKER) (test 23 % ukxj=266) MONOCYTES RELATIVE PERCENT (BEAKER) (test 8 % gjrq=737) EOSINOPHILS RELATIVE PERCENT (BEAKER) (test 0 % jzmk=905) BASOPHILS RELATIVE PERCENT (BEAKER) (test 0 % plzq=794) NEUTROPHILS ABSOLUTE COUNT (BEAKER) (test 7.52 K/ L 1.80-8.00 aykn=799) LYMPHOCYTES ABSOLUTE COUNT (BEAKER) (test 2.53 K/ L 1.48-4.50 uebl=343) MONOCYTES ABSOLUTE COUNT (BEAKER) (test 0.88 K/ L 0.00-1.30 ejan=732) EOSINOPHILS ABSOLUTE COUNT (BEAKER) (test 0.01 K/ L 0.00-0.50 rdkn=525) BASOPHILS ABSOLUTE COUNT (BEAKER) (test 0.01 K/ L 0.00-0.20 mbse=333) IMMATURE GRANULOCYTES-RELATIVE PERCENT (BEAKER) 1 % 0-0 (test yhoe=6197) CALCIUM, [id number] 05:06:00 Test Item Value Reference Range Comments CALCIUM IONIZED (BEAKER) (test qmoq=674) 1.18 mmol/L 1.12-1.27 PH, BLOOD (BEAKER) (test lglc=3049) 7.45 [id number] 05:21:00 Test Item Value Reference Range Comments PHOSPHORUS (BEAKER) (test vybv=590) 1.8 mg/dL 2.5-4.5 CALCIUM, [id number] 05:20:00 Test Item Value Reference Range Comments CALCIUM IONIZED (BEAKER) (test thck=370) 0.92 mmol/L 1.12-1.27 PH, BLOOD (BEAKER) (test utej=6653) 7.42 BASIC METABOLIC [id number] 05:18:00 Test Item Value Reference Range Comments SODIUM (BEAKER) (test 145 meq/L 135-148 smwh=020) POTASSIUM (BEAKER) (test 2.7 meq/L 3.6-5.5 khqs=193) CHLORIDE (BEAKER) (test 124 meq/L 98-106 jazv=566) CO2 (BEAKER) (test 16 meq/L 20-29 pebl=427) BLOOD UREA NITROGEN 12 mg/dL 10-26 (BEAKER) (test phhn=400) CREATININE (BEAKER) (test 0.48 mg/dL 0.50-1.20 vufj=632) GLUCOSE RANDOM (BEAKER) 100 mg/dL 70-110 (test hrfu=083) CALCIUM (BEAKER) (test 6.1 mg/dL 8.5-10.5 gbxn=850) EGFR (BEAKER) (test 155 mL/min/1.73 sq m ESTIMATED GFR IS NOT dhdi=8870) ACCURATE CREATININE CLEARANCE IN PREDICTING GLOMERULAR FILTRATION RATE. ESTIMATED GFR IS NOT APPLICABLE FOR DIALYSIS PATIENTS. HEPATIC FUNCTION [id number] 05:16:00 Test Item Value Reference Range Comments TOTAL PROTEIN (BEAKER) (test vuhg=582) 4.3 gm/dL 6.0-8.5 ALBUMIN (BEAKER) (test lgfu=2684) 2.5 g/dL 3.5-5.0 BILIRUBIN TOTAL (BEAKER) (test ctrz=373) < mg/dL 0.1-1.2 BILIRUBIN DIRECT (BEAKER) (test dtbh=374) 0.1 mg/dL 0.0-0.4 ALKALINE PHOSPHATASE (BEAKER) (test qpfn=203) 65 U/L 30-115 AST (SGOT) (BEAKER) (test uarz=897) 15 U/L 5-40 ALT (SGPT) (BEAKER) (test xdek=674) 28 U/L 5-50 [id number] 05:09:00 Test Item Value Reference Range Comments PROTIME (BEAKER) (test erfz=095) 13.1 sec 9.3-12.0 INR (BEAKER) (test vdyt=554) 1.2 <=5.9 PARTIAL THROMBOPLASTIN TIME (BEAKER) (test 36.7 sec 23.0-35.0 jwcm=272) RECOMMENDED COUMADIN/WARFARIN INR THERAPY RANGESSTANDARD DOSE: 2.0 - 3.0 Includes: PROPHYLAXIS forvenous thrombosis, systemic embolization; TREATMENT for venous thrombosis and/or pulmonary embolus.HIGH RISK: Target INR is 2.5-3.5 for patients with mechanical heart valves.Final Information (Auto Output)Final Information (Auto Output)Final Information (Auto Output)PROTHROMBIN [id number] 05:09:00 Test Item Value Reference Range Comments PROTIME (MILTON) (test cbja=134) 13.1 seconds 9.3-12.0 INR (SALVADORAKER) (test ynsi=351) 1.2 <=5.9 RECOMMENDED COUMADIN/WARFARIN INR THERAPY RANGESSTANDARD DOSE: 2.0 - 3.0 Includes: PROPHYLAXIS forvenous thrombosis, systemic embolization; TREATMENT for venous thrombosis and/or pulmonary embolus.HIGH RISK: Target INR is 2.5-3.5 for patients with mechanical heart valves.[id number] 05:07:00 Test Item Value Reference Range Comments MAGNESIUM (MILTON) (test znwb=356) 1.2 mg/dL 1.5-3.0 TROPONIN [id number] 15:48:00 Test Item Value Reference Range Comments TROPONIN I (SALVADORAKER) (test jlkf=303) < ng/mL 0.00-0.15 Troponin I (TnI) levels must be interpreted in the context of the presenting symptoms and the clinical findings. Elevated TnI levels indicate myocardial damage, but are not specific for ischemic heart disease. Elevated TnI levels are seen in patients with other cardiac conditions (including myocarditis and congestive heart failure), and slight TnI elevations occur in patients with other conditions, including sepsis, renal failure, acidosis, acute neurological disease, and persistent tachyarrhythmia.HEMOGLOBIN [id number] 10:08:00 Test Item Value Reference Range Comments HEMOGLOBIN A1C (MILTON) (test mfwf=554) 6.1 % 4.3-6.1 CT, CHEST WITH IV CONTRAST- PE TEST [id number] 09:48:00FINAL REPORT CT of the chest, pulmonary embolism [...] images. Coronal 2D reformatted images are reviewed. Thisexam was performed according to our departmental dose optimization program which includes automated exposure control , adjustment of the mA and/or kV according to patient's size and/or use of iterative reconstructive technique. Comparison Film: None Discussion: No filling defects are identified withinthe pulmonary arteries to suggest acute pulmonary embolism. Visualized thyroid gland is unremarkable. No supraclavicular , axillary mediastinal or hilar lymphadenopathy. Heart and [...] process identified in the thorax. Signed: Osmany Fnich Verified Date/Time: 12/11/2018 09:48:10 Reading Location: [address] Ortho Consult Reading Room RAD, CHEST, 1 VIEW, NON [id number] 09:10:00Reason for exam:->PULM EDEMAShould this be performed at the bedside?->YesFINAL REPORT Clinical History: PULM EDEMA Comparison Study: None Findings: The heart and lungs are within normal limits. The pleural spaces are clear. No significant bony or soft tissue abnormalities are seen. Impression: No active cardiopulmonary disease. Signed: David Rodriguez Verified Date/Time: 12/11/2018 09:10:32 Reading Location: [facility] Radiology Reading Room COMPREHENSIVE METABOLIC [id number] 07:24:00 Test Item Value Reference Range Comments TOTAL PROTEIN (BEAKER) 6.4 gm/dL 6.0-8.5 (test igsk=809) ALBUMIN (BEAKER) (test 3.6 g/dL 3.5-5.0 opfm=7463) ALKALINE PHOSPHATASE 97 U/L 30-115 (BEAKER) (test nfsd=803) BILIRUBIN TOTAL (BEAKER) 0.4 mg/dL 0.1-1.2 (test zopz=152) SODIUM (BEAKER) (test 139 meq/L 135-148 ujno=534) POTASSIUM (BEAKER) (test 3.7 meq/L 3.6-5.5 wcvd=046) CHLORIDE (BEAKER) (test 108 meq/L 98-106 uvea=425) CO2 (BEAKER) (test 24 meq/L 20-29 lbbd=714) BLOOD UREA NITROGEN 18 mg/dL 10-26 (BEAKER) (test kzeh=197) CREATININE (BEAKER) (test 0.78 mg/dL 0.50-1.20 lbfs=156) GLUCOSE RANDOM (BEAKER) 105 mg/dL 70-110 (test hulu=904) CALCIUM (BEAKER) (test 8.5 mg/dL 8.5-10.5 jocv=428) AST (SGOT) (BEAKER) (test 24 U/L 5-40 fotf=854) ALT (SGPT) (BEAKER) (test 43 U/L 5-50 yjdu=786) EGFR (BEAKER) (test 89 mL/min/1.73 sq m ESTIMATED GFR IS NOT fapi=5195) ACCURATE CREATININE CLEARANCE IN PREDICTING GLOMERULAR FILTRATION RATE. ESTIMATED GFR IS NOT APPLICABLE FOR DIALYSIS PATIENTS. TROPONIN [id number] 07:24:00 Test Item Value Reference Range Comments TROPONIN I (BEAKER) (test pakn=529) < ng/mL 0.00-0.15 Troponin I (TnI) levels must be interpreted in the context of the presenting symptoms and the clinical findings. Elevated TnI levels indicate myocardial damage, but are not specific for ischemic heart disease. Elevated TnI levels are seen in patients with other cardiac conditions (including myocarditis and congestive heart failure), and slight TnI elevations occur in patients with other conditions, including sepsis, renal failure, acidosis, acute neurological disease, and persistent tachyarrhythmia.LIPID [id number] 07:23:00 Test Item Value Reference Range Comments TRIGLYCERIDES (BEAKER) (test ulqo=829) 95 mg/dL CHOLESTEROL (BEAKER) (test bacm=569) 180 mg/dL HDL CHOLESTEROL (BEAKER) (test xykr=163) 50 mg/dL LDL CHOLESTEROL CALCULATED (BEAKER) (test 111 mg/dL hljc=843) Triglyceride Reference Range: Low Risk <150 Borderline 150- 199 High Risk 200-499 Very High Risk >=500Cholesterol Reference Range: Low Risk <200 Borderline 200-239 High Risk > 240HDL Cholesterol Reference Range: Low Risk >=60 High Risk <40LDL Cholesterol Reference Range: Optimal <100 Near Optimal 100-129 Borderline 130-159 High 160-189 Very High >=[id number] 07:15:00 Test Item Value Reference Range Comments MAGNESIUM (BEAKER) (test yers=077) 2.0 mg/dL 1.5-3.0 CBC W/PLT COUNT & AUTO [id number] 07:00:00 Test Item Value Reference Range Comments WHITE BLOOD CELL COUNT (BEAKER) (test lrat=902) 6.7 K/ L 4.0-10.0 RED BLOOD CELL COUNT (BEAKER) (test wzoj=782) 4.33 M/ L 4.00-5.00 HEMOGLOBIN (BEAKER) (test nyvp=398) 12.3 GM/DL 12.0-15.5 HEMATOCRIT (BEAKER) (test pyek=554) 39.9 % 36.0-46.0 MEAN CORPUSCULAR VOLUME (BEAKER) (test eelf=973) 92.1 fL 82.0-99.0 MEAN CORPUSCULAR HEMOGLOBIN (BEAKER) (test 28.4 pg 27.0-33.0 mxzq=888) MEAN CORPUSCULAR HEMOGLOBIN CONC (BEAKER) (test 30.8 GM/DL 32.0-36.0 wnyk=737) RED CELL DISTRIBUTION WIDTH (BEAKER) (test 13.8 % 12.0-15.0 jbvk=288) PLATELET COUNT (BEAKER) (test vkzq=161) 164 K/CU MM 150-430 MEAN PLATELET VOLUME (BEAKER) (test idql=371) 11.2 fL 6.0-11.5 NUCLEATED RED BLOOD CELLS (BEAKER) (test 0 /100 WBC 0-0 aqip=977) NEUTROPHILS RELATIVE PERCENT (BEAKER) (test 59 % ryrr=903) LYMPHOCYTES RELATIVE PERCENT (BEAKER) (test 32 % bmwn=266) MONOCYTES RELATIVE PERCENT (BEAKER) (test 8 % cauk=186) EOSINOPHILS RELATIVE PERCENT (BEAKER) (test 1 % wggm=364) BASOPHILS RELATIVE PERCENT (BEAKER) (test 0 % qrlc=234) NEUTROPHILS ABSOLUTE COUNT (BEAKER) (test 3.95 K/ L 1.80-8.00 ccll=721) LYMPHOCYTES ABSOLUTE COUNT (BEAKER) (test 2.11 K/ L 1.48-4.50 jzbb=678) MONOCYTES ABSOLUTE COUNT (BEAKER) (test 0.54 K/ L 0.00-1.30 shqe=841) EOSINOPHILS ABSOLUTE COUNT (BEAKER) (test 0.06 K/ L 0.00-0.50 zhun=662) BASOPHILS ABSOLUTE COUNT (BEAKER) (test 0.02 K/ L 0.00-0.20 ifzm=446) IMMATURE GRANULOCYTES-RELATIVE PERCENT (BEAKER) 0 % 0-0 (test xebc=6172)
[2019-02-11] MEDS ORDERED: METOPROLOL TAR 25 MG TAB ONE (12:33)
[2019-02-11] MEDS ORDERED: ENOXAPARIN 100 MG/ML SYR SQ ONE (12:33)
[2019-02-11] MEDS ORDERED: FAMOTIDINE 20 MG/2 ML VIAL IV ONE (12:33)
[2019-02-11 12:39] LABS: Absolute Lymphocytes (CBC) 1.6 K/uL (0.7-4.9); Absolute Monocytes 0.4 K/uL (0.1-1.3); Absolute Neutrophil 2.9 K/uL (1.8-8.0); Basophils % 0.8 % (0-1.3); Eosinophils % 1.2 % (0-4.4); Hematocrit 39.5 % (36.0-45.0); Lymphocytes % 32.3 % (15.3-44.8); Monocytes % 8.7 % (3.3-12.3)
[2019-02-11 12:40] LABS: Protime INR 1.16
[2019-02-11 12:57] LABS: ALT/SGPT 39 U/L (12-78); AST/SGOT 22 U/L (15-37); Albumin 3.6 g/dL (3.4-5.0); Alkaline Phosphatase 109 U/L (45-117); BUN Blood Urea Nitrogen 29 mg/dL (7-18); Bicarbonate 28 mmol/L (21-32); Bilirubin Direct < 0.1 mg/dL (0-0.2); Bilirubin Total 0.3 mg/dL (0.2-1.0); Glucose Level 133 mg/dL (74-106); Lipase 142 U/L (73-393); Magnesium 1.9 mg/dL (1.8-2.4); NT PRO-BNP 38 pg/mL (<125); Potassium 3.6 mmol/L (3.5-5.1); Protein, Total 7.3 g/dL (6.4-8.2); Sodium Level 139 mmol/L (136-145); Troponin (Emerg Dept Use Only) < 0.02 ng/mL (0.0-0.045)
--- NOTE | 2019-02-11 13:18 | EDPHYS ---
Physician Documentation [facility] Name: Cole Cadena Age: 68 yrs Sex: Female : 1950 Arrival Date: 02/11/2019 Time: 12:15 Bed 2 Private MD: ED Physician Fabian Arriaza HPI: 02/11 12:17 This 68 yrs old Black Female presents to ER via Unassigned with complaints of chest abbe pain. 12:17 The patient or guardian reports chest pain that is located primarily in the substernal abbe area. Onset: just prior to arrival. The pain does not radiate. Associated signs and symptoms: The patient has no apparent associated signs or symptoms. The chest pain is described as a heaviness, a pressure. Modifying factors: The symptoms are alleviated by nothing. the symptoms are aggravated by nothing. Severity of pain: At its worst the pain was moderate in the emergency department the pain has resolved and did so just prior to arrival. The patient has not experienced similar symptoms in the past. Historical: - Allergies: 12:34 Tramadol HCl; sg - PMHx: 12:34 Anxiety; Depression; GERD; Hypertension; sg - PSHx: 12:34 Tubal ligation; ankle (left); sg - Immunization history:: Adult Immunizations up to date. - Social history:: Smoking status: Patient/guardian denies using tobacco. - Family history:: not pertinent. - Ebola Screening: : Patient negative for fever greater than or equal to 101.5 degrees Fahrenheit, and additional compatible Ebola Virus Disease symptoms Patient denies exposure to infectious person Patient denies travel to an Ebola-affected area in the 21 days before illness onset No symptoms or risks identified at this time. ROS: 12:17 Constitutional: Negative for fever, chills, and weight loss, Eyes: Negative for injury, abbe pain, redness, and discharge, ENT: Negative for injury, pain, and discharge, Neck: Negative for injury, pain, and swelling, Respiratory: Negative for shortness of breath, cough, wheezing, and pleuritic chest pain, Abdomen/GI: Negative for abdominal pain, nausea, vomiting, diarrhea, and constipation, Back: Negative for injury and pain, : Negative for injury, bleeding, discharge, and swelling, MS/Extremity: Negative for injury and deformity, Skin: Negative for injury, rash, and discoloration, Neuro: Negative for headache, weakness, numbness, tingling, and seizure, Psych: Negative for depression, anxiety, suicide ideation, homicidal ideation, and hallucinations, Allergy/Immunology: Negative for hives, rash, and allergies, Endocrine: Negative for neck swelling, polydipsia, polyuria, polyphagia, and marked weight changes, Hematologic/Lymphatic: Negative for swollen nodes, abnormal bleeding, and unusual bruising. 12:17 Cardiovascular: Positive for chest pain, of the chest. Exam: 12:17 Constitutional: This is a well developed, well nourished patient who is awake, alert, abbe and in no acute distress. Head/Face: Normocephalic, atraumatic. Eyes: Pupils equal round and reactive to light, extra-ocular motions intact. Lids and lashes normal. Conjunctiva and sclera are non-icteric and not injected. Cornea within normal limits. Periorbital areas with no swelling, redness, or edema. ENT: Nares patent. No nasal discharge, no septal abnormalities noted. Tympanic membranes are normal and external auditory canals are clear. Oropharynx with no redness, swelling, or masses, exudates, or evidence of obstruction, uvula midline. Mucous membranes moist. Neck: Trachea midline, no thyromegaly or masses palpated, and no cervical lymphadenopathy. Supple, full range of motion without nuchal rigidity, or vertebral point tenderness. No Meningismus. Chest/axilla: Normal chest wall appearance and motion. Nontender with no deformity. No lesions are appreciated. Cardiovascular: Regular rate and rhythm with a normal S1 and S2. No gallops, murmurs, or rubs. Normal PMI, no JVD. No pulse deficits. Respiratory: Lungs have equal breath sounds bilaterally, clear to auscultation and percussion. No rales, rhonchi or wheezes noted. No increased work of breathing, no retractions or nasal flaring. Abdomen/GI: Soft, non-tender, with normal bowel sounds. No distension or tympany. No guarding or rebound. No evidence of tenderness throughout. Back: No spinal tenderness. No costovertebral tenderness. Full range of motion. Skin: Warm, dry with normal turgor. Normal color with no rashes, no lesions, and no evidence of cellulitis. MS/ Extremity: Pulses equal, no cyanosis. Neurovascular intact. Full, normal range of motion. Neuro: Awake and alert, GCS 15, oriented to person, place, time, and situation. Cranial nerves II-XII grossly intact. Motor strength 5/5 in all extremities. Sensory grossly intact. Cerebellar exam normal. Normal gait. Psych: Awake, alert, with orientation to person, place and time. Behavior, mood, and affect are within normal limits. 12:17 Musculoskeletal/extremity: Extremities: all appear grossly normal, with no appreciated pain with palpation, ROM: no acute changes, intact in all extremities, full active range of motion, full passive range of motion, Circulation is intact in all extremities. Sensation intact. Compartment Syndrome exam of affected extremity: is normal. DVT Exam: No signs of deep vein thrombosis. no pain, no swelling, no tenderness, negative Homans' sign noted on exam, no appreciated bluish discoloration, no erythema, no increased warmth. Vital Signs: 12:18 Weight 93.44 kg; aa5 12:34 BP 93 / 66; Pulse 55; Resp 17; Temp 97.6; Pulse Ox 97% ; Pain 4/10; sg 12:48 BP 81 / 54; Pulse 55; Resp 16; Pulse Ox 97% on R/A; sg 13:43 BP 104 / 66; Pulse 50; Resp 17; Pulse Ox 97% on R/A; Pain 3/10; sg 14:30 BP 109 / 67; Pulse 46; Resp 19; Pulse Ox 100% ; sv 15:21 BP 122 / 67; Pulse 49; Resp 15; Pulse Ox 100% ; sv MDM: 12:15 Patient medically screened. [facility] 12:19 Data reviewed: vital signs, nurses notes, lab test result(s), EKG, radiologic studies, abbe plain films. 02/11 12:17 Order name: Basic Metabolic Panel [facility] 02/11 12:17 Order name: CBC with Diff [facility] 02/11 12:17 Order name: LFT's; Complete Time: 13:13 [facility] 02/11 12:17 Order name: Magnesium; Complete Time: 13:13 [facility] 02/11 12:17 Order name: NT PRO-BNP; Complete Time: 13:13 [facility] 02/11 12:17 Order name: PT-INR; Complete Time: 13:13 [facility] 02/11 12:17 Order name: Troponin (emerg Dept Use Only); Complete Time: 13:13 [facility] 02/11 12:17 Order name: XRAY Chest (1 view) [facility] 02/11 12:17 Order name: Lipase; Complete Time: 13:13 [facility] 02/11 12:17 Order name: Echo w/ Doppler [facility] 02/11 12:18 Order name: Basic Metabolic Panel; Complete Time: 13:13 [facility] 02/11 12:18 Order name: CBC with Automated Diff; Complete Time: 13:13 [facility] 02/11 12:17 Order name: EKG; Complete Time: 12:19 [facility] 02/11 12:17 Order name: Cardiac monitoring; Complete Time: 14:18 [facility] 02/11 12:17 Order name: IV Saline Lock; Complete Time: 14:18 [facility] 02/11 12:17 Order name: Labs collected and sent; Complete Time: 14:18 [facility] 02/11 12:17 Order name: O2 Per Protocol; Complete Time: 14:18 [facility] 02/11 12:17 Order name: O2 Sat Monitoring; Complete Time: 14:18 [facility] Administered Medications: 12:27 Drug: Pepcid 20 mg Route: IVP; Site: left antecubital; sv 12:27 Drug: Lovenox 1 mg/kg Route: Sub-Q; Site: right lower abdomen; sv Disposition: 02/11/19 13:18 Hospitalization ordered by Shani Hoffman for Observation. Preliminary diagnosis are Chest pain, unspecified, Essential (primary) hypertension. - Bed requested for Telemetry/MedSurg (observation). - Status is Observation. aa5 - Condition is Fair. - Problem is new. - Symptoms have improved. UTI on Admission? No Signatures: Dispatcher [employer] [facility] [place] Gibson Stephanie, RN RN sv Gay, Steven, Fabian Gardner RN, MD MD cha Calderon, Audri, RN RN aa5 Corrections: (The following items were deleted from the chart) 14:51 13:18 Hospitalization Ordered by Shani Hoffman MD for Observation. Preliminary diagnosis bd is Chest pain, unspecified; Essential (primary) hypertension. Bed requested for Telemetry/MedSurg (observation). Status is Observation. Condition is Fair. Problem is new. Symptoms have improved. UTI on Admission? No. [facility] 16:03 14:51 02/11/2019 13:18 Hospitalization Ordered by Shani Hoffman MD for Observation. aa5 Preliminary diagnosis is Chest pain, unspecified; Essential (primary) hypertension. Bed requested for Telemetry/MedSurg (observation). Status is Observation. Condition is Fair. Problem is new. Symptoms have improved. UTI on Admission? No. bd
--- NOTE | 2019-02-11 13:18 | ER ---
Nurse's Notes [facility] Name: Cole Cadena Age: 68 yrs Sex: Female : 1950 Arrival Date: 02/11/2019 Time: 12:15 Bed 2 Private MD: Diagnosis: Chest pain, unspecified;Essential (primary) hypertension Presentation: 02/11 12:30 Presenting complaint: EMS states: pt complaining of mid sternal chest pain, reports a sg little short of breath at the time, pain relieved after Nitro x3 in aerosol form administered FINISH SANDER. Transition of care: patient was not received from another setting of care. Onset of symptoms was February 11, 2019. Risk Assessment: Do you want to hurt yourself or someone else? Patient reports no desire to harm self or others. Initial Sepsis Screen: Does the patient meet any 2 criteria? No. Patient's initial sepsis screen is negative. Does the patient have a suspected source of infection? No. Patient's initial sepsis screen is negative. Care prior to arrival: Medication(s) given: Normal saline infusion, 100 mL Nitroglycerin, IV initiated. 20 GA, in the left antecubital area. 12:30 Acuity: DYLAN 2 sg 12:30 Method Of Arrival: EMS: [facility] sg Triage Assessment: 12:25 General: Appears in no apparent distress. uncomfortable, well groomed, well developed, sg well nourished, Behavior is cooperative, appropriate for age. Pain: Complains of pain in mid-sternal area Quality of pain is described as aching, crushing. EENT: No signs and/or symptoms were reported regarding the EENT system. Neuro: Level of Consciousness is awake, alert, obeys commands, Oriented to person, place, time, situation, Lithographic Artist are equal bilaterally Moves all extremities. Full function Speech is normal, Facial symmetry appears normal. Cardiovascular: Capillary refill is brisk in bilateral fingers Patient's skin is warm and dry. Chest pain is described as mild, diffuse, quality is clutching, crushing, sharp, is located in anterior chest wall. Respiratory: Reports shortness of breath at rest but has resolved FINISH SANDER Airway is patent Respiratory effort is even, unlabored, Respiratory pattern is regular, symmetrical. GI: Abdomen is round non-distended, Reports nausea, normal bowel habits. : No signs and/or symptoms were reported regarding the genitourinary system. Derm: Skin is intact, is healthy with good turgor, Skin is dry, Skin is normal, Skin temperature is cool pt removed from wet clothing and placed into a clean dry gown, pt given warm blankets. Musculoskeletal: Circulation, motion, and sensation intact. Range of motion: intact in all extremities. Historical: - Allergies: 12:34 Tramadol HCl; sg - PMHx: 12:34 Anxiety; Depression; GERD; Hypertension; sg - PSHx: 12:34 Tubal ligation; ankle (left); sg - Immunization history:: Adult Immunizations up to date. - Social history:: Smoking status: Patient/guardian denies using tobacco. - Family history:: not pertinent. - Ebola Screening: : Patient negative for fever greater than or equal to 101.5 degrees Fahrenheit, and additional compatible Ebola Virus Disease symptoms Patient denies exposure to infectious person Patient denies travel to an Ebola-affected area in the 21 days before illness onset No symptoms or risks identified at this time. Assessment: 13:41 Reassessment: Patient appears in no apparent distress at this time. Patient and/or sg family updated on plan of care and expected duration. Pain level reassessed. Patient is alert, oriented x 3, equal unlabored respirations, skin warm/dry/pink. 15:51 Reassessment: Patient appears in no apparent distress at this time. Patient and/or sv family updated on plan of care and expected duration. Pain level reassessed. Patient is alert, oriented x 3, equal unlabored respirations, skin warm/dry/pink. Vital Signs: 12:18 Weight 93.44 kg; aa5 12:34 BP 93 / 66; Pulse 55; Resp 17; Temp 97.6; Pulse Ox 97% ; Pain 4/10; sg 12:48 BP 81 / 54; Pulse 55; Resp 16; Pulse Ox 97% on R/A; sg 13:43 BP 104 / 66; Pulse 50; Resp 17; Pulse Ox 97% on R/A; Pain 3/10; sg 14:30 BP 109 / 67; Pulse 46; Resp 19; Pulse Ox 100% ; sv 15:21 BP 122 / 67; Pulse 49; Resp 15; Pulse Ox 100% ; sv ED Course: 12:15 Patient arrived in ED. [facility] 12:15 Fabian Arriaza MD is Attending Physician. abbe 12:21 EKG done, by ED staff, reviewed by Fabian Arriaza MD. em1 12:30 Maintain EMS IV. Dressing intact. Good blood return noted. Site clean \T\ dry. Gauge \T\ sv site: 20G L AC. 12:30 Arm band placed on. sv 12:32 Triage completed. sg 12:47 Roberto Coleman, RN is Primary Nurse. sg 13:13 XRAY Chest (1 view) In Process Unspecified. EDMS 13:17 Shani Hoffman MD is Hospitalizing Provider. abbe 13:40 Patient has correct armband on for positive identification. Bed in low position. Call sg light in reach. 15:50 No provider procedures requiring assistance completed. Patient admitted, IV remains in sv place. intact. Administered Medications: 12:27 Drug: Pepcid 20 mg Route: IVP; Site: left antecubital; sv 12:27 Drug: Lovenox 1 mg/kg Route: Sub-Q; Site: right lower abdomen; sv Outcome: 13:18 Decision to Hospitalize by Provider. [facility] 15:50 Admitted to Tele accompanied by tech, via wheelchair, room 422, with chart, Report sv called to Pardeep BARRY 15:50 Condition: stable 15:50 Instructed on the need for admit. 16:03 Patient left the ED. aa5 Signatures: Dispatcher [employer] Lina Sosa RN RN sv Gay, Steven, RN Fabian Gardner MD MD cha Martinez, Eric em1 Alessandra Saldana RN ASHA aa5
--- NOTE | 2019-02-11 13:34 | RAD REPORT ---
EXAM DESCRIPTION: RAD - Chest Single View - 02/11/2019 1:13 pm CLINICAL HISTORY: Chest pain COMPARISON: February 2017 TECHNIQUE: AP portable chest image was obtained 1245 hours . FINDINGS: Lungs are clear. Heart and vasculature are normal. No measurable pleural effusion and no p neumothorax. No acute bony abnormality seen. No acute aortic findings suspected. IMPRESSION: No acute cardiopulmonary process. No significant change from comparison.
[2019-02-11] MEDS ORDERED: ONDANSETRON 4 MG/2 ML VIAL IV PRN (16:09)
[2019-02-11 16:18] VITALS: BMI 38.9
[2019-02-11] MEDS ORDERED: POTASSIUM CL SA 10 MEQ TAB PO ONE (16:36)
[2019-02-11] MEDS: NA CHLORIDE 0.9% 1,000 ML IV SCH (16:42)
--- NOTE | 2019-02-11 17:43 | P.HP ---
Certification for Inpatient Patient admitted to: Observation Practitioner: I am a practitioner with admitting privileges, knowledge of patient current condition, hospital course, and medical plan of care. Services: Services provided to patient in accordance with Admission requirements found in Title 42 Section 412.3 of the Code of Federal Regulations Patient History Date of Service: 02/11/19 Reason for admission: Chest pain History of Present Illness: This is a 68-year-old female with history of NSTEMI, anxiety and hypertension admitted for substernal chest pain. Per patient, chest pain started this am, substernal, tightness, radiating to lower back. Associated with feeling faint and excessive sweating. 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 She also states that she was told she had a heart attack in december 2018 and she had a cardiac cath done at a hospital in [facility]. She is not sure if there was a stent placed or not at that time. Upon chart review, patient with a history of NSTEMI in 12/12/2018 with LHC and PCI. ECHO at that time, normal EF with diastolic dysfunction. In the ER, her blood pressure was 93/66, heart rate of 55, respirations of 17, 97.6, and 97% on room air. Her troponin was negative x1, her other lab work was unremarkable. She received Lovenox 100 mg subcutaneous along with Pepcid and metoprolol 25 mg oral. At the time of my exam, she was alert oriented x3, hemodynamically stable and in no acute distress.Her cp had improved. Allergies Tramadol HCl Allergy (Intermediate, Uncoded 02/11/19 18:14) headche Home medications list reviewed: Yes - Past Medical/Surgical History Has patient received pneumonia vaccine in the past: No Diabetic: No -: anxiety -: depression -: GERD -: Hypertension -: NSTEMI -: tubal ligation -: LHC w/ PCI - Social History Smoking Status: Never smoker Alcohol use: No CD- Drugs: No Caffeine use: No Place of Residence: Home Review of Systems 10-point ROS is otherwise unremarkable Physical Examination - Vital Signs Temperature: 98 F Blood Pressure: 122/67 Pulse: 52 Respirations: 16 Pulse Ox (%): 98 - Physical Exam General: Alert, In no apparent distress, Oriented x3 HEENT: Atraumatic, PERRLA, Mucous membr. moist/pink, EOMI, Sclerae nonicteric Neck: Supple, 2+ carotid pulse no bruit, No LAD, Without JVD or thyroid abnormality Respiratory: Clear to auscultation bilaterally, Normal air movement Cardiovascular: Regular rate/rhythm, Normal S1 S2 Gastrointestinal: Normal bowel sounds, No tenderness Musculoskeletal: No tenderness Integumentary: No rashes Neurological: Normal gait, Normal speech, Normal strength at 5/5 x4 extr, Normal tone, Normal affect Lymphatics: No axilla or inguinal lymphadenopathy - Studies Laboratory Data (last 24 hrs) 02/11/19 12:20: PT 13.6 H, INR 1.16 02/11/19 12:20: WBC 5.1, Hgb 13.0, Hct 39.5, Plt Count 174 02/11/19 12:20: Sodium 139, Potassium 3.6, BUN 29 H, Creatinine 1.13, Glucose 133 H, Magnesium 1.9, Total Bilirubin 0.3, AST 22, ALT 39, Alkaline Phosphatase 109, Lipase 142 Assessment and Plan - Problems (Diagnosis) (1) Chest pain, rule out acute myocardial infarction Current Visit: Yes Status: Acute Plan: Admit to [facility] floor with tele. Risk factors: Recent NSTEMI w/ PCI, HTN, age, Obesity, female Trend troponins EKG Chest pain guidelines with aspirin, Plavix, statin, metoprolol. Morphine and nitro for pain as needed Echocardiogram ordered Cardiology consult (2) History of non-ST elevation myocardial infarction (NSTEMI) Current Visit: Yes Status: Chronic (3) Hypertension Current Visit: Yes Status: Acute Plan: Currently hypotensive. Hold medications. Will adjust as needed Qualifiers: Hypertension type: essential hypertension Qualified Code(s): I10 - Essential (primary) hypertension (4) Anxiety Current Visit: Yes Status: Acute - Plan DVT prophylaxis: Aspirin and Plavix, as noted above GI prophylaxis: Protonix Diet: Heart healthy Disposition: Pending rule out. Likely discharge home in the next 24-48 hr. Discharge Plan: Home Plan to discharge in: 48 Hours - Advance Directives Does patient have a Living Will: No Does patient have a Durable POA for Healthcare: No
[2019-02-11] MEDS ORDERED: PNEUMOCOCCAL VACCINE 0.5 ML IMVAC ONE (18:00)
[2019-02-11] MEDS: METOPROLOL TAR 25 MG TAB PO SCH (18:14)
[2019-02-11 18:23] LABS: Urine Appearance CLEAR; Urine Bilirubin NEGATIVE (NEG); Urine Blood NEGATIVE (NEG); Urine Color YELLOW; Urine Glucose NEGATIVE (NEG); Urine Protein NEGATIVE (NEG); Urine Specific Gravity 1.025 (1.005-1.030); Urine Urobilinogen 0.2 mg/dL (0.2-1.0)
--- NOTE | 2019-02-11 18:24 | EKG ---
Test Date: 2019-02-11 Test Time: 12:15:48 Feed Project Engineer: ALY MEASUREMENT RESULTS: Intervals: Rate: 60 MN: 200 QRSD: 84 QT: 466 QTc: 466 [place]: P: 59 MN: 200 QRS: -21 T: 3 INTERPRETIVE STATEMENTS: Normal sinus rhythm Minimal voltage criteria for LVH, may be normal variant Borderline ECG Compared to ECG 07/18/2016 16:32:24 ST (T wave) deviation no longer present Electronically Signed On 02-11-19 18:23:26 CDT by Jonathan Lyle
[2019-02-11 18:39] LABS: Urine Microscopic Reflex NO UMIC
[2019-02-11] MEDS ORDERED: ATORVASTATIN 40 MG TAB PO SCH (21:00)
[2019-02-12 04:21] LABS: Absolute Lymphocytes (CBC) 2.1 K/uL (0.7-4.9); Absolute Monocytes 0.6 K/uL (0.1-1.3); Absolute Neutrophil 3.5 K/uL (1.8-8.0); Basophils % 0.4 % (0-1.3); Eosinophils % 0.9 % (0-4.4); Hematocrit 36.5 % (36.0-45.0); MPV 10.5 fL (7.6-11.3); Monocytes % 10.1 % (3.3-12.3)
[2019-02-12 04:42] LABS: Albumin 3.2 g/dL (3.4-5.0); Bilirubin Total 0.2 mg/dL (0.2-1.0); Potassium 3.8 mmol/L (3.5-5.1); Protein, Total 6.8 g/dL (6.4-8.2)
[2019-02-12] MEDS: NA CHLORIDE 0.9% 1,000 ML IV SCH (06:04)
[2019-02-12] MEDS ORDERED: PANTOPRAZOLE 40MG TABLET PO SCH (06:30)
--- NOTE | 2019-02-12 07:37 | CON ---
Date of Consultation: 02/11/[address] The patient admitted to Dr. Hoffman's service on 02/11/2019. The patient was seen on 02/11/2019. Reason For Consultation: Chest pain. History Of Present Illness: The patient is a 68-year-old black woman who apparently had a stent in M arch of this year at [facility]. At that time, she had been admitted to [facility] in [place] for GI bleed and was found to have an elevated troponin, was having chest pain, no w was sent to [facility] where she underwent stent and it sounds like she underwent a colonoscopy as w ell. The family and the patient were unaware of what was found or where the blockage was. She is ve ry vague about what medication she is taking at this point, but it sounds like she was taking blood t hinners that she stopped. Nevertheless, she came back yesterday with substernal to mid-epigastric ch est pain radiating to the back with some sweating and feeling like she is going to faint. No PND, or thopnea, pedal edema, palpitations, or syncope. Past Medical History: Basically is positive for hypertension, gastroesophageal reflux disease, anxie ty, and depression and CAD status post recent stent. Medications: Unknown. Allergies: NONE. Review of Systems: Negative. Social History: Negative. Family History: Noncontributory. Physical Examination: Vital Signs: Stable. She was afebrile. HEENT: Negative. Neck: Supple. No bruit. Chest: Clear. Cardiac: Revealed a regular rhythm and rate. No murmurs, gallops, or rubs. Abdomen: Obese but benign. Extremities: Revealed no clubbing, cyanosis, or edema. Diagnostic Data: EKGs were normal. Chest x-ray was normal. Her laboratory evaluation was actually within normal limit. Her troponin was negative. BNP was negative. Impression And Plan: The patient with recent stent approximately 2 months ago with symptoms that are still more consistent with gastroesophageal reflux disease. She was feeling slightly sluggish with some diaphoresis and I am not so sure if she is taking a beta-rajiv or not, neither she. Family wa s going to get the actual medicine so we can review which she is really taking. Nevertheless, an ech ocardiogram and a Lexiscan are indicated to make sure we are not dealing with restenosis, which would be unusual vessel. Her blood pressure at this point is fairly well controlled. WILBERTO/CARMELA Voice ID: [id number] Report ID: [id number]
--- NOTE | 2019-02-12 08:32 | ECHO ---
HEIGHT: 5 ft 1 in WEIGHT: 206 lb 0 oz DATE OF STUDY: 02/11/[address]: Fabian Arriaza MD 2-DIMENSIONAL: YES M.MODE: YES DOPPLER: YES COLOR FLOW: YES TDS: NO PORTABLE: NO DEFINITY: NO BUBBLE STUDY: NO DIAGNOSIS: CHEST PAIN CARDIAC HISTORY: CATHERIZATION: NO SURGERY: NO PROSTHETIC VALVE: NO PACEMAKER: NO MEASUREMENTS (cm) DIASTOLIC (NORMALS) SYSTOLIC (NORMALS) IVSd 1.0 (0.6-1.2) LA Diam 3.3 (1.9-4.0) LVEF 67% LVIDd 4.6 (3.5-5.7) LVIDs 2.9 (2.0-3.5) %FS 37% LVPWd 1.1 (0.6-1.2) Ao Diam 2.6 (2.0-3.7) 2 DIMENSIONAL ASSESSMENT: RIGHT ATRIUM: NORMAL LEFT ATRIUM: NORMAL RIGHT VENTRICLE: NORMAL LEFT VENTRICLE: NORMAL TRICUSPID VALVE: NORMAL MITRAL VALVE: NORMAL PULMONIC VALVE: NORMAL AORTIC VALVE: SCLEROSIS PERICARDIAL EFFUSION: NONE AORTIC ROOT: NORMAL LEFT VENTRICULAR WALL MOTION: NORMAL DOPPLER/COLOR FLOW: MILD TRICUSPID REGURGITATION. COMMENTS: MILD TRICUSPID REGURGITATION. AORTIC SCLEROSIS WITH NO STENOSIS. NORMAL LEFT VENTRICUALR SIZE AND FUNCTION. NO EFFUSION. TECHNOLOGIST: Salvador ARTEAGA
[2019-02-12] MEDS ORDERED: POTASSIUM CL SA 10 MEQ TAB PO ONE (09:00)
[2019-02-12] MEDS ORDERED: ASPIRIN EC 81 MG TAB PO SCH (09:00)
[2019-02-12] MEDS ORDERED: CLOPIDOGREL 75 MG TABLET PO SCH (09:00)
[2019-02-12] MEDS: METOPROLOL TAR 25 MG TAB PO SCH (10:33)
--- NOTE | 2019-02-12 10:41 | RAD REPORT ---
EXAM DESCRIPTION: NM - Rest Stress Cardiac Imaging - 02/12/2019 10:35 am CLINICAL HISTORY: Chest pain COMPARISON: None. TECHNIQUE: The patient was administered approximately 10 mCi of Tc 99m Sestamibi prior to resting SP ECT imaging of the heart. The patient was then administered approximately 30 mCi of Tc 99m Sestamibi following exercise or pharmacologic stress. Multiplanar SPECT images were reviewed. FINDINGS: The end diastolic volume is 78 ml, the end systolic volume is 35 ml, and the ejection frac tion is 55 %. No stress-induced ischemic changes identifiable. A mild diminishment in activity along the anterior w all near the apex is not clearly different between rest and stress imaging. This is probably breast a ttenuation artifact. Scarring is possible. No other significant defects identifiable. IMPRESSION: No stress-induced ischemia. Minimal diminished activity anterior wall near the apex favored to be attenuation artifact rather dante n scarring. Ventricular volumes and ejection fraction are normal range.
--- NOTE | 2019-02-12 12:11 | TREADPHA ---
DX: CHEST PAIN/ CORONARY ARTERY DISEASE Date of Study: 02/12/19 Ht: 5 1 Wt: 206 lb 0 oz Consulting Physician: RENUKA MEDICATIONS: ASPIRIN, LIPITOR, PLAVIX, LOPRESSOR, KLOR-CON HISTORY: 68 YEAR OLD FEMALE, COMPLAINTS OF CHEST PAIN, HISTORY OF HYPERTENSION, ANXIETY, DEPRESSION, HYPERTENSION, NON-SMOKER, NON DRINKER. PHYSICIAL EXAMINATION: RESTING B.P.: 1 61/110 RESTING H.R.: 53 RESTING EKG: SINUS BRADYCARDIA OTHERWISE NORMAL. PROTOCOL: LEXISCAN EXERCISE TIME: 3:30 B.P. AT [place]AK STRESS: 174/96 IMPRESSION: LEXISCAN INJECTED, FOLLOWED BY CARDIOLITE PER PROTOCOL, SEE NUCLEAR MEDICINE REPORT. NO SUPRA VENTRICULAR TACHYCARDIA, NO VENTRICULAR TACHYCARDIA, NO PREMATURE ATRIAL COMPLEXES, NO PREMATURE VENTRICULAR COMPLEXES. PATIENT REPORTED NO CHEST PAIN. NON DIAGNOSTIC EKG LEXISCAN STRESS.
--- NOTE | 2019-02-12 15:16 | P.SSS ---
Patient History Date of Service: 02/12/19 Reason for admission: Chest pain History of Present Illness: This is a 68-year-old female with history of NSTEMI, anxiety and hypertension admitted for substernal chest pain. Per patient, chest pain started this am, substernal, tightness, radiating to lower back. Associated with feeling faint and excessive sweating. 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 She also states that she was told she had a heart attack in december 2018 and she had a cardiac cath done at a hospital in [facility]. She is not sure if there was a stent placed or not at that time. Upon chart review, patient with a history of NSTEMI in 12/12/2018 with LHC and PCI. ECHO at that time, normal EF with diastolic dysfunction. In the ER, her blood pressure was 93/66, heart rate of 55, respirations of 17, 97.6, and 97% on room air. Her troponin was negative x1, her other lab work was unremarkable. She received Lovenox 100 mg subcutaneous along with Pepcid and metoprolol 25 mg oral. At the time of my exam, she was alert oriented x3, hemodynamically stable and in no acute distress.Her cp had improved. Allergies Tramadol HCl Allergy (Intermediate, Uncoded 02/11/19 18:14) headche Home medications list reviewed: Yes Home Medications: Atorvastatin Calcium [Lipitor] 40 mg PO BEDTIME #30 tab 02/12/19 Clopidogrel Bisulfate [Plavix*] 75 mg PO DAILY #30 tablet 02/12/19 Metoprolol Tartrate [Lopressor*] 12.5 mg PO BID 6AM 6PM #60 tab 02/12/19 - Past Medical/Surgical History Has patient received pneumonia vaccine in the past: No Diabetic: No -: anxiety -: depression -: GERD -: Hypertension -: NSTEMI -: tubal ligation -: LHC w/ PCI - Social History Smoking Status: Never smoker Alcohol use: No CD- Drugs: No Caffeine use: No Place of Residence: Home Review of Systems 10-point ROS is otherwise unremarkable Physical Examination - Vital Signs Temperature: 97.2 F Blood Pressure: 176/85 Pulse: 56 Respirations: 18 Pulse Ox (%): 97 - Physical Exam General: Alert, In no apparent distress, Oriented x3 HEENT: Atraumatic, PERRLA, Mucous membr. moist/pink, EOMI, Sclerae nonicteric Neck: Supple, 2+ carotid pulse no bruit, No LAD, Without JVD or thyroid abnormality Respiratory: Clear to auscultation bilaterally, Normal air movement Cardiovascular: Regular rate/rhythm, Normal S1 S2 Gastrointestinal: Normal bowel sounds, No tenderness Musculoskeletal: No tenderness Integumentary: No rashes Neurological: Normal gait, Normal speech, Normal strength at 5/5 x4 extr, Normal tone, Normal affect Lymphatics: No axilla or inguinal lymphadenopathy - Diagnosis (Problem(s)) (1) Chest pain, rule out acute myocardial infarction Current Visit: Yes Status: Acute (2) History of non-ST elevation myocardial infarction (NSTEMI) Current Visit: Yes Status: Chronic (3) Hypertension Current Visit: Yes Status: Acute Qualifiers: Hypertension type: essential hypertension Qualified Code(s): I10 - Essential (primary) hypertension (4) Anxiety Current Visit: Yes Status: Acute Treatment Summary: Patient was admitted to the floor for observaiton. Troponins remained negative x 3. Cardiology was consulted. An ECHO was done, which showed 67% EF, aortic sclerosis without stenosis. Patient underwent a stress test which was negative for any acute ischemia. Medications she will need to take upon discharge: Metoprolol, asa, plavix, statin. She does have a wheel filler, Dr. Marin. She will follow up with her wheel filler in 2 weeks. - Disposition Discharge Date: 02/12/19 Disposition: ROUTINE DISCHARGE Condition: GOOD Consultations: Cardiology Patient Discharge Instructions: Please follow up with your primary care physician in 2-3 days. Medications: Metoprolol, Atorvastatin, Aspirin, plavix. Please follow up with cardiology in 2 weeks. Please return to the Emergency room with worsening symtpoms. Diet: AHA Activity: Ad trung Time Spent Managing Pts Care (In Minutes): 55
[2019-02-12 16:55] VITALS: O2SAT 96
[2019-02-12 17:12] VITALS: BP 173/85; TEMP 98
== END 2019-02-12 17:12 | disposition home or self-care (01) ==
LOC: ER 12:14 → ERHOLD 13:31 → 4TH 15:50
PROVIDERS: ADMIT Family Medicine; ATTEND Family Medicine
DX: R07.9 Chest pain, unspecified (principal); F41.9 Anxiety disorder, unspecified; I10 Essential (primary) hypertension; I25.10 Atherosclerotic heart disease of native coronary artery without angina pectoris; I25.2 Old myocardial infarction; Z95.5 Presence of coronary angioplasty implant and graft
CPT/HCPCS: 93005; 93017; 93306; 87088; 85025 ×2; 87086; 80048; 36415; 83735; 85610; 80061; 80076; 81003; 84484 ×3; 83690; 80053; 83880; 71045; 94760 ×3; 78452; 96372; 96374; 99285; J1650; J7030 ×2; A9500; G0378 ×2

== ENCOUNTER 2019-06-16 16:42 | Emergency (ER) | payer OTHER ==
--- OUTSIDE RECORDS SUMMARY | 2019-06-16 16:45 | XMS REPORT | Clinical Summary ---
:1950 Author Organization [facility] Address [address] [place] [address] Care Team Providers Name Role Phone Jonelle [...] Kristi elevation myocardial infarction) (HCC) (Primary Dx) 12/11/2018 Orders Only General Internal Medicine after 06/15/2018 Social History Tobacco Use Types Packs/Day Years Used Date Never Smoker Smokeless Tobacco: Never Used Sex Assigned at Date Recorded Not on file Job Start Date Occupation Industry Not on file Not on file Not on file Travel History Travel Start Travel End No recent travel history available. Last Filed Vital Signs Vital Sign Reading Time Taken Blood Pressure 162/88 12/13/2018 11:55 AM [facility] Pulse 86 12/13/2018 11:55 AM [facility] Temperature 37.5 C (99.5 F) 12/13/2018 11:55 AM [facility] Respiratory Rate 20 12/13/2018 11:55 AM [facility] Oxygen Saturation 96% 12/13/2018 11:55 AM [facility] Inhaled Oxygen Concentration - - Weight 98.4 kg (217 lb) 12/11/2018 4:45 AM [facility] Height 157.5 cm (5' 2") 12/11/2018 4:45 AM [facility] Body Mass Index 39.69 12/11/2018 4:45 AM [facility] Plan of Treatment Not on file Procedures Procedure Name Priority Date/Time Associated Comments Diagnosis REPORT OF PROCEDURE - 12/17/2018 10:51 ENDOSCOPY SCAN AM CDT RHYTHM STRIP - SCAN 12/17/2018 10:51 AM CDT CARDIAC CATH REPORT - 12/17/2018 10:51 SCAN AM CDT POCT-GLUCOSE METER Routine 12/13/2018 12:03 Results for this PM [facility] procedure are in the results section. CALCIUM, IONIZED Routine 12/13/2018 4:52 Results for this AM [facility] procedure are in the results section. CBC W/PLT COUNT & AUTO Routine 12/13/2018 4:50 Results for this DIFFERENTIAL AM [facility] procedure are in the results section. CBC W/PLT COUNT & AUTO Routine 12/13/2018 4:50 Results for this DIFFERENTIAL AM [facility] procedure are in the results section. PHOSPHORUS Routine 12/13/2018 4:50 Results for this AM [facility] procedure are in the results section. MAGNESIUM Routine 12/13/2018 4:50 Results for this AM [facility] [employer] procedure are in the results section. PROTHROMBIN TIME/INR Routine 12/13/2018 4:50 Results for this AM [facility] [employer] procedure are in the results section. PT/APTT Routine 12/13/2018 4:50 Results for this AM [facility] procedure are in the results section. HEPATIC FUNCTION PANEL Routine 12/13/2018 4:50 Results for this AM [facility] procedure are in the results section. BASIC METABOLIC PANEL Routine 12/13/2018 4:50 Results for this (7) AM [facility] procedure are in the results section. L CATH & PCI 12/12/2018 1:00 Acute coronary PM [facility] syndrome (HCC) PHOSPHORUS Routine 12/12/2018 4:38 Results for this AM [facility] procedure are in the results section. MAGNESIUM Routine 12/12/2018 4:38 Results for this AM [facility] procedure are in the results section. PROTHROMBIN TIME/INR Routine 12/12/2018 4:38 Results for this AM [facility] procedure are in the results section. PT/APTT Routine 12/12/2018 4:38 Results for this AM [facility] procedure are in the results section. HEPATIC FUNCTION PANEL Routine 12/12/2018 4:38 Results for this AM [facility] procedure are in the results section. CALCIUM, IONIZED Routine 12/12/2018 4:38 Results for this AM [facility] procedure are in the results section. BASIC METABOLIC PANEL Routine 12/12/2018 4:38 Results for this (7) AM [facility] procedure are in the results section. TROPONIN I Routine 12/11/2018 3:18 Results for this PM [facility] procedure are in the results section. URINE CULTURE Routine 12/11/2018 2:52 Results for this PM [facility] procedure are in the results section. ECHOCARDIOGRAM REPORT - 12/11/2018 10:50 SCAN AM [facility] CT CHEST PE TEST DESIGN STAT 12/11/2018 9:30 Results for this AM [facility] procedure are in the results section. XR CHEST 1 VIEW Routine 12/11/2018 8:50 Results for this PORTABLE/BEDSIDE AM [facility] procedure are in the results section. 2D ECHO W/ DOPPLER Routine 12/11/2018 8:38 Results for this (CW/PW/COLOR) AM [facility] procedure are in the results section. CBC W/PLT COUNT & AUTO Routine 12/11/2018 6:48 Results for this DIFFERENTIAL AM [facility] procedure are in the results section. HEMOGLOBIN A1C Routine 12/11/2018 6:48 Results for this AM [facility] procedure are in the results section. LIPID PANEL Routine 12/11/2018 6:48 Results for this AM [facility] procedure are in the results section. MAGNESIUM Routine 12/11/2018 6:48 Results for this AM [facility] procedure are in the results section. COMPREHENSIVE METABOLIC Routine 12/11/2018 6:48 Results for this PANEL AM [facility] procedure are in the results section. CBC W/PLT COUNT & AUTO Routine 12/11/2018 6:48 Results for this DIFFERENTIAL AM [facility] procedure are in the results section. TROPONIN I Routine 12/11/2018 6:48 Results for this AM [facility] procedure are in the results section. after 06/15/2018 Results EKG-SCANNED (12/17/2018 10:51 AM CDT) Narrative Performed At RHYTHM STRIP - SCAN (12/17/2018 10:51 AM CDT) Narrative Performed At CARDIAC CATH REPORT - SCAN (12/17/2018 10:51 AM CDT) Narrative Performed At POC-Glucose meter (12/13/2018 12:03 PM [facility]) POC-Glucose Meter 131 (H)Comment: TESTED AT 70 - 110 mg/dL [facility] [address] [facility] [place] [id number] Specimen Blood Performing Organization Address City/State/Zipcode Phone Number [facility] MED[facility] [address] [place] [address] CENTER Calcium, Ionized (12/13/2018 4:52 AM [facility])Only the most recent of2 resultswithin the time period is included. Calcium, Ion 1.18 1.12 - 1.27 mmol/L [facility] pH, Blood 7.45 [facility] Specimen Blood Performing Organization Address City/[facility]/Zipcode Phone Number [facility] [address] [place], [place] [address] [phone] PT/aPTT (12/13/2018 4:50 AM [facility])Only the most recent of2 resultswithin the time period is included. Protime 11.8 9.3 - 12.0 sec [facility] INR 1.1 <=5.9 [facility] PTT 35.0 23.0 - 35.0 sec [facility] Specimen Blood Narrative Performed At RECOMMENDED COUMADIN/WARFARIN INR THERAPY RANGES [facility] STANDARD DOSE: 2.0 - 3.0 Includes: PROPHYLAXIS for venous thrombosis, systemic embolization; TREATMENT for venous thrombosis and/or pulmonary embolus. HIGH RISK: Target INR is 2.5-3.5 for patients with mechanical heart valves. Final Information (Auto Output) Final Information (Auto Output) Final Information (Auto Output) Performing Organization Address City/[facility] Phone Number [facility] [address] [place] [address] CBC with platelet count + automated diff (12/13/2018 4:50 AM [facility])Only the most recent of2 resultswithin the time period is included. WBC 11.0 (H) 4.0 - 10.0 K/L [facility] RBC 4.74 4.00 - 5.00 M/L [facility] Hemoglobin 13.3 12.0 - 15.5 GM/DL [facility] Hematocrit 42.9 36.0 - 46.0 % [facility] MCV 90.5 82.0 - 99.0 fL [facility] MCH 28.1 27.0 - 33.0 pg [facility] MCHC 31.0 (L) 32.0 - 36.0 GM/DL [facility] RDW 13.8 12.0 - 15.0 % [facility] Platelets 183 150 - 430 K/CU MM [facility] MPV 11.7 (H) 6.0 - 11.5 fL [facility] nRBC 0 0 - 0 /100 WBC [facility] % Neutros 68 % [facility] % Lymphs 23 % [facility] % Monos 8 % [facility] Specimen Blood Performing Organization Address [facility] Phone Number [facility] [address] [place] [address] Prothrombin time/INR (12/13/2018 4:50 AM [facility])Only the most recent of2 resultswithin the time period is included. Protime 11.8 9.3 - 12.0 seconds [facility] INR 1.1 <=5.9 [facility] Specimen Blood Narrative Performed At RECOMMENDED COUMADIN/WARFARIN INR THERAPY RANGES [facility] STANDARD DOSE: 2.0 - 3.0 Includes: PROPHYLAXIS for venous thrombosis, systemic embolization; TREATMENT for venous thrombosis and/or pulmonary embolus. HIGH RISK: Target INR is 2.5-3.5 for patients with mechanical heart valves. Performing Organization Address [facility] Phone Number [facility] [address] [place] [phone] Phosphorus (12/13/2018 4:50 AM [facility])Only the most recent of2 resultswithin the time period is included. Phosphorus 2.6 2.5 - 4.5 mg/dL [facility] Specimen Blood Performing Organization Address City/[facility] Phone Number [facility] [address] [place], [place] [phone] Magnesium (12/13/2018 4:50 AM [facility])Only the most recent of3 resultswithin the time period is included. Magnesium 2.0 1.5 - 3.0 mg/dL [facility] Specimen Blood Performing Organization Address City/[facility] Phone Number [facility] [address] [place] [address] Hepatic function panel (12/13/2018 4:50 AM [facility])Only the most recent of2 resultswithin the time period is included. Protein, Total 7.1 6.0 - 8.5 gm/dL [facility] Albumin 3.9 3.5 - 5.0 g/dL [facility] Total Bilirubin 0.4 0.1 - 1.2 mg/dL [facility] Bilirubin, Direct 0.2 0.0 - 0.4 mg/dL [facility] Alkaline Phosphatase 98 30 - 115 U/L [facility] AST 19 5 - 40 U/L [facility] ALT 36 5 - 50 U/L [facility] Specimen Blood Performing Organization Address [facility] Phone Number [facility] [place] [address] Basic metabolic panel (12/13/2018 4:50 AM [facility])Only the most recent of2 resultswithin the time period is included. Sodium 133 (L) 135 - 148 meq/L [facility] Potassium 4.0 3.6 - 5.5 meq/L [facility] Chloride 103 98 - 106 meq/L [facility] CO2 22 20 - 29 meq/L [facility] BUN 14 10 - 26 mg/dL [facility] Creatinine 0.71 0.50 - 1.20 mg/dL [facility] Glucose 100 70 - 110 mg/dL [facility] Calcium 9.3 8.5 - 10.5 mg/dL [facility] EGFR 99Comment: ESTIMATED GFR IS NOT mL/min/1.73 sq m [facility] ACCURATE CREATININE CLEARANCE IN PREDICTING GLOMERULAR FILTRATION RATE. ESTIMATED GFR IS NOT APPLICABLE FOR DIALYSIS PATIENTS. Specimen Blood Performing Organization Address [facility] Phone Number [facility] [address] [place] [address] Troponin I (12/11/2018 3:18 PM [facility])Only the most recent of2 resultswithin the time period is included. Troponin I <0.03 0.00 - 0.15 ng/mL [facility] Specimen Blood Narrative Performed At Troponin I (TnI) levels must be interpreted in the context of [facility] the presenting symptoms and the clinical findings. Elevated TnI levels indicate myocardial damage, but are not specific for ischemic heart disease. Elevated TnI levels are seen in patients with other cardiac conditions (including myocarditis and congestive heart failure), and slight TnI elevations occur in patients with other conditions, including sepsis, renal failure, acidosis, acute neurological disease, and persistent tachyarrhythmia. Performing Organization Address [facility] Phone Number [facility] [address] [place] [phone] Urine culture (12/11/2018 2:52 PM [facility]) Result 20-29,000 col/mL Escherichia coli (A) [facility] Specimen Urine Narrative Performed At <10,000 col/mL skin nargis [facility] Organism Antibiotic Method Susceptibility Escherichia coli [...] + Sulfamethoxazole >=320: Resistant Performing Organization Address [facility] Phone Number [place] [phone] [place] [address] [phone] ECHOCARDIOGRAM REPORT - SCAN (12/11/2018 10:50 AM [facility]) Narrative Performed At CT chest for pulmonary embolus (12/11/2018 9:30 AM [facility]) Specimen Narrative Performed At FINAL REPORT [facility] CT of the chest, pulmonary embolism protocol [...] MD Report Verified Date/Time:12/11/2018 09:48:10 Reading Location: [address] Consult Reading Room Procedure Note Interface, External Ris In - 12/11/2018 9:50 AM [facility] FINAL REPORT CT of the chest, pulmonary [...] Report Verified Date/Time: 12/11/2018 09:48:10 Reading Location: [facility] B1 [id number] Ortho Consult Reading Room Performing Organization Address City/[facility] Phone Number [facility] XR chest 1 view portable / bedside (12/11/2018 8:50 AM [facility]) Specimen Narrative Performed At FINAL REPORT [facility] Clinical History: PULM EDEMA Comparison Study: None Findings:The heart and lungs are within normal limits.The pleural spaces are clear.No significant bony or soft tissue abnormalities are seen. Impression: No active cardiopulmonary disease. Signed: David Rodriguez MD Report Verified Date/Time:12/11/2018 09:10:32 Reading Location: [facility] Radiology Reading Room Procedure Note Interface, External Ris In - 12/11/2018 9:12 AM [facility] FINAL REPORT Clinical History: PULM EDEMA Comparison Study: None Findings: The heart and lungs are within normal limits. The pleural spaces are clear. No significant bony or soft tissue abnormalities are seen. Impression: No active cardiopulmonary disease. Signed: David Rodriguez MD Report Verified Date/Time: 12/11/2018 09:10:32 Reading Location: [facility] Radiology Reading Room Performing Organization Address City/[facility] Phone Number [facility] 2D Echo W/Doppler(CW/PW/Color) (12/11/2018 8:38 AM [facility]) Ejection Fraction [facility] Specimen Narrative Performed At Transthoracic Echocardiography Report (TTE) [facility] Demographics Patient NameELEJOGUN, Date of Study12/11/2018 COLE Female Visit [id number] Black Room [id number] Number Date of 1950Referring Physician 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 Physician Procedure Type [...] Address City/State/Zipcode Phone Number [facility]CK[facility] Hemoglobin A1c (12/11/2018 6:48 AM [facility]) Hemoglobin A1C 6.1 4.3 - 6.1 % [facility] Specimen Blood Performing Organization Address City/[facility] Phone Number [facility] [address] [place] [address] Lipid panel (12/11/2018 6:48 AM [facility]) Triglycerides 95 mg/dL [facility] Cholesterol 180 mg/dL [facility] HDL 50 mg/dL [facility] LDL Calculated 111 mg/dL [facility] Specimen Blood Narrative Performed At Triglyceride Reference Range: [facility] Low Risk <150 [id number] High Risk 200-499 Very High Risk>=500 Cholesterol Reference Range: Low Risk <200 [id number] High Risk>240 HDL Cholesterol Reference Range: Low Risk >=60 High Risk <40 LDL Cholesterol Reference Range: Optimal<100 Near [id number] Very High >=190 Performing Organization Address City/[facility] Phone Number [facility] [address] [place] [phone] Comprehensive metabolic panel (12/11/2018 6:48 AM [facility]) Protein, Total 6.4 6.0 - 8.5 gm/dL [...] DIALYSIS PATIENTS. Specimen Blood Performing Organization Address City/State/Zipcode Phone Number [facility] [address] [place] [address] after 06/15/2018 Insurance Payer Benefit Plan / Group Subscriber ID Type Phone Address MEDICARE MEDICARE A B xxxxxxxxxxx Medicare [place] MED[place] MEDICAID [place] xxxxxxxxx Advance Directives For more information, please contact:[address] [phone] Code Status Date Activated Date Inactivated Comments Full Code 12/11/2018 5:02 AM 12/13/2018 5:56 PM This code status was determined by: Patient
--- OUTSIDE RECORDS SUMMARY | 2019-06-16 16:45 | XMS REPORT ---
:1950 [facility] Address [address] [place] [address] Care Team Providers Name Role Phone SYLVESTER GOMEZ Unavailable Unavailable Problems This patient has no known problems. Allergies, Adverse Reactions, Alerts This patient has no known allergies or adverse reactions. Medications This patient has no known medications. Results Test Description Test Time Test Comments Text Results Atomic Results Result Comments Thyroid Stimulating Hormone 2019-05-01 22:54:49 Test Item Value Reference Range Comments TSH (test code=TSH) 1.940 mIU/mL 0.270-4.200 Comprehensive Metabolic [id number] 22:34:40 Test Item Value Reference Range Comments Sodium Level (test code=Sodium Level) 143.0 mmol/L 135.0-145.0 Potassium Level (test code=Potassium Level) 3.8 mmol/L 3.5-5.1 Chloride Level (test code=Chloride Level) 103 mmol/L 98-105 CO2 (test code=CO2) 24 mmol/L 22-29 Anion Gap (test code=Anion Gap) 16 mmol/L 7-16 BUN (test code=BUN) 17.00 mg/dL 8.00-23.00 Creatinine Level (test code=Creatinine Level) 0.80 mg/dL 0.50-0.90 BUN/Creat Ratio (test code=BUN/Creat Ratio) 21 Glucose Level (test code=Glucose Level) 125 mg/dL 70-115 Calcium Level (test code=Calcium Level) 9.6 mg/dL 8.3-10.5 Alk Phos (test code=Alk Phos) 122 U/L 35-104 Bilirubin Total (test code=Bilirubin Total) 0.3 mg/dL 0.1-0.9 Albumin Level (test code=Albumin Level) 4.4 g/dL 3.5-5.2 Protein Total (test code=Protein Total) 7.5 g/dL 6.4-8.3 ALT (test code=ALT) 33 U/L 1-33 AST (test code=AST) 27 U/L 1-32 Globulin (test code=Globulin) 3.1 g/dL 2.9-3.1 A/G Ratio (test code=A/G Ratio) 1.4 ratio Lipid [id number] 22:34:40 Test Item Value Reference Range Comments Cholesterol Total (test 212 mg/dL 0-200 RISK OF HEART DISEASEPublished code=Cholesterol Total) by [place] [employer] Analyte Optimal Borderline Increased RiskCHOL <200 200-239 >240TRIG <150 150-199 >200HDL Male >60 <40HDL Female >60 <50LDL <100 130-159 >160LDL Near optimal is 100-129 Triglycerides (test 157 mg/dL 9-200 code=Triglycerides) HDL (test code=HDL) 50 mg/dL 50-60 LDL (test code=LDL) 130 mg/dL 0-130 The equation being used in this calculation is LDL=(Chol - HDL) - (Trig / 5) VLDL (test code=VLDL) 31 mg/dL 5-40 The equation being used in this calculation is VLDL=Trig / 5 Chol/HDL (test 4.2 ratio 0.0-4.4 code=Chol/HDL) LDL/HDL Ratio (test 3 The equation being used in this code=LDL/HDL Ratio) calculation is LDL/HDL Ratio=LDL Calc/HDL Chol Comprehensive Metabolic [id number] 22:34:40 Test Item Value Reference Range Comments Sodium Level (test 143.0 mmol/L 135.0-145.0 code=Sodium Level) Potassium Level (test 3.8 mmol/L 3.5-5.1 code=Potassium Level) Chloride Level (test 103 mmol/L 98-105 code=Chloride Level) CO2 (test code=CO2) 24 mmol/L 22-29 Anion Gap (test 16 mmol/L 7-16 code=Anion Gap) BUN (test code=BUN) 17.00 mg/dL 8.00-23.00 Creatinine Level (test 0.80 mg/dL 0.50-0.90 code=Creatinine Level) BUN/Creat Ratio (test 21 code=BUN/Creat Ratio) Glucose Level (test 125 mg/dL 70-115 code=Glucose Level) Calcium Level (test 9.6 mg/dL 8.3-10.5 code=Calcium Level) Alk Phos (test code=Alk 122 U/L 35-104 Phos) Bilirubin Total (test 0.3 mg/dL 0.1-0.9 code=Bilirubin Total) Albumin Level (test 4.4 g/dL 3.5-5.2 code=Albumin Level) Protein Total (test 7.5 g/dL 6.4-8.3 code=Protein Total) ALT (test code=ALT) 33 U/L 1-33 AST (test code=AST) 27 U/L 1-32 Globulin (test 3.1 g/dL 2.9-3.1 code=Globulin) A/G Ratio (test code=A/G 1.4 ratio Ratio) eGFR AA (test code=eGFR >60 mL/min/1.73 m2 eGFR (estimated AA) Glomerular Filtration Rate) is an estimated value, calculated from the patient's serum creatinine using the MDRD equation. It is NOT the patient's actual GFR. The eGFR provides a more clinically useful measure of kidney disease than serum creatinine alone.This calculation takes sex and race into account, if the information is provided. If the race is not provided, and the patient is -[place], multiply by 1.212. If sex is not provided, and the patient is female, multiply by 0.742. Results for patients <18 years of age have not been validated by the MDRD study and should be interpreted with caution. eGFR Result Interpretation:eGFR > or=60 is in the Normal RangeeGFR < 60 may mean kidney diseaseeGFR < 15 may mean kidney failure Ranges recommended by the National Kidney Foundation, http://nkdep.nih.gov Comprehensive Metabolic [id number] 22:34:40 Test Item Value Reference Range Comments Sodium Level (test 143.0 mmol/L 135.0-145.0 code=Sodium Level) Potassium Level (test 3.8 mmol/L 3.5-5.1 code=Potassium Level) Chloride Level (test 103 mmol/L 98-105 code=Chloride Level) CO2 (test code=CO2) 24 mmol/L 22-29 Anion Gap (test 16 mmol/L 7-16 code=Anion Gap) BUN (test code=BUN) 17.00 mg/dL 8.00-23.00 Creatinine Level (test 0.80 mg/dL 0.50-0.90 code=Creatinine Level) BUN/Creat Ratio (test 21 code=BUN/Creat Ratio) Glucose Level (test 125 mg/dL 70-115 code=Glucose Level) Calcium Level (test 9.6 mg/dL 8.3-10.5 code=Calcium Level) Alk Phos (test code=Alk 122 U/L 35-104 Phos) Bilirubin Total (test 0.3 mg/dL 0.1-0.9 code=Bilirubin Total) Albumin Level (test 4.4 g/dL 3.5-5.2 code=Albumin Level) Protein Total (test 7.5 g/dL 6.4-8.3 code=Protein Total) ALT (test code=ALT) 33 U/L 1-33 AST (test code=AST) 27 U/L 1-32 Globulin (test 3.1 g/dL 2.9-3.1 code=Globulin) A/G Ratio (test code=A/G 1.4 ratio Ratio) eGFR AA (test code=eGFR >60 mL/min/1.73 m2 eGFR (estimated AA) Glomerular Filtration Rate) is an estimated value, calculated from the patient's serum creatinine using the MDRD equation. It is NOT the patient's actual GFR. The eGFR provides a more clinically useful measure of kidney disease than serum creatinine alone.This calculation takes sex and race into account, if the information is provided. If the race is not provided, and the patient is -[place], multiply by 1.212. If sex is not provided, and the patient is female, multiply by 0.742. Results for patients <18 years of age have not been validated by the MDRD study and should be interpreted with caution. eGFR Result Interpretation:eGFR > or=60 is in the Normal RangeeGFR < 60 may mean kidney diseaseeGFR < 15 may mean kidney failure Ranges recommended by the National Kidney Foundation, http://nkdep.nih.gov eGFR Non-AA (test >60.00 mL/min/1.73 eGFR (estimated code=eGFR Non-AA) m2 Glomerular Filtration Rate) is an estimated value, calculated from the patient's serum creatinine using the MDRD equation. It is NOT the patient's actual GFR. The eGFR provides a more clinically useful measure of kidney disease than serum creatinine alone.This calculation takes sex and race into account, if the information is provided. If the race is not provided, and the patient is -[place], multiply by 1.212. If sex is not provided, and the patient is female, multiply by 0.742. Results for patients <18 years of age have not been validated by the MDRD study and should be interpreted with caution. eGFR Result Interpretation:eGFR > or=60 is in the Normal RangeeGFR < 60 may mean kidney diseaseeGFR < 15 may mean kidney failure Ranges recommended by the National Kidney Foundation, http://nkdep.nih.gov [id number] 21:47:04 Test Item Value Reference Range Comments RBC Morph (test code=RBC Morph) Normal Normal Platelet Morphology (test code=Platelet Platelet Clumping Normal Morphology) Anisocyte (test code=Anisocyte) None None Hypochromia (test code=Hypochromia) None Seen None Seen Microcyte (test code=Microcyte) None Seen None Seen Macrocyte (test code=Macrocyte) None Seen None Seen Poik (test code=Poik) None Seen None Seen Polychrom (test code=Polychrom) None Seen None Seen Acanthocyte (test code=Acanthocyte) None Seen None Seen Baso Stippling RBC (test code=Baso None Seen None Seen Stippling RBC) Plt Estimation (test code=Plt Estimation) Normal Normal Automated [id number] 21:28:33 Test Item Value Reference Range Comments Neutro Auto (test code=Neutro Auto) 59.6 % 36.0-70.0 Lymph Auto (test code=Lymph Auto) 29.8 % 12.0-44.0 [place] Auto (test code=[place] Auto) 8.2 % 0.0-11.0 Eos, Auto (test code=Eos, Auto) 1.8 % 0.0-7.0 Basophil Auto (test code=Basophil Auto) 0.4 % 0.0-2.0 Neutro Absolute (test code=Neutro Absolute) 3.1 x10 1.6-7.4 Lymph Absolute (test code=Lymph Absolute) 1.53 x10 .50-4.60 [place] Absolute (test code=[place] Absolute) .42 x10 .00-1.20 Eos Absolute (test code=Eos Absolute) 0.09 x10 0.00-0.74 Baso Absolute (test code=Baso Absolute) 0.02 x10 0.00-0.21 IG [id number] 21:28:33 Test Item Value Reference Range Comments IG (test code=IG) 0.2 % 0.0-5.0 IG Abs (test code=IG Abs) 0 x10 Complete Blood Count with [id number] 21:28:32 Test Item Value Reference Range Comments WBC (test code=WBC) 5.1 x10 4.4-10.5 RBC (test code=RBC) 4.69 x10 3.75-5.20 Hgb (test code=Hgb) 13.5 g/dL 12.2-14.8 MCV (test code=MCV) 89.60 fL 80.00-100.00 Hct (test code=Hct) 42.0 % 36.5-44.4 MCHC (test code=MCHC) 32.10 g/dL 32.00-37.50 RDW CV (test code=RDW CV) 12.9 % 11.5-14.5 MCH (test code=MCH) 28.8 pg 27.0-32.5 Platelets (test 126.0 x10 140.0-440.0 code=Platelets) MPV (test code=MPV) 13.2 fL Slide Review (test code=Slide Smear Auto Result created by Review) GL_SJM_SLIDE_REV_AUTO GL_SJM_XN_RFLX GL_SJM_XN_RFLX nRBC (test code=nRBC) 0 NRBC Abs (test code=NRBC Abs) 0.00 x10 IPF (test code=IPF) 11 % Complete Blood Count with [id number] 21:28:32 Test Item Value Reference Range Comments WBC (test code=WBC) 5.1 x10 4.4-10.5 RBC (test code=RBC) 4.69 x10 3.75-5.20 Hgb (test code=Hgb) 13.5 g/dL 12.2-14.8 MCV (test code=MCV) 89.60 fL 80.00-100.00 Hct (test code=Hct) 42.0 % 36.5-44.4 MCHC (test code=MCHC) 32.10 g/dL 32.00-37.50 RDW CV (test code=RDW CV) 12.9 % 11.5-14.5 MCH (test code=MCH) 28.8 pg 27.0-32.5 Platelets (test 126.0 x10 140.0-440.0 code=Platelets) MPV (test code=MPV) 13.2 fL Slide Review (test code=Slide Smear Auto Result created by Review) GL_SJM_SLIDE_REV_AUTO GL_SJM_XN_RFLX GL_SJM_XN_RFLX nRBC (test code=nRBC) 0 NRBC Abs (test code=NRBC Abs) 0.00 x10 Pos Morph XN (test code=Pos A Morph XN) Pos Count XN (test code=Pos A Count XN) IPF (test code=IPF) 11 % POCT-GLUCOSE [id number] 12:33:00 Test Item Value Reference Range Comments POC-GLUCOSE METER ([place]) 131 mg/dL 70-110 [facility] [address] (test lctd=0711) [facility] [address] URINE [id number] 07:56:00 Test Item Value Reference Range Comments CULTURE ([facility]) (test ESCHERICHIA COLI 20-29,000 col/mL xhfy=2831) Escherichia coli Amikacin (test code=1) Ampicillin + Sulbactam (test code=6) Aztreonam (test code=32) Cefazolin (test code=9) Cefepime (test code=51) Cefoxitin (test code=68) Ceftazidime (test code=27) Ceftriaxone (test code=52) Ertapenem (test code=38) Gentamicin (test code=18) Levofloxacin (test code=22) Meropenem (test code=34) Nitrofurantoin (test code=23) Piperacillin + Tazobactam (test code=29) Tetracycline (test code=2) Tigecycline (test xxtd=098) Tobramycin (test code=25) Trimethoprim + Sulfamethoxazole (test code=47) <10,000 col/mL skin floraHEPATIC FUNCTION [id number] 06:05:00 Test Item Value Reference Range Comments TOTAL PROTEIN (BEAKER) (test pdnp=456) 7.1 gm/dL 6.0-8.5 ALBUMIN (BEAKER) (test tiey=9500) 3.9 g/dL 3.5-5.0 BILIRUBIN TOTAL (BEAKER) (test nvpu=514) 0.4 mg/dL 0.1-1.2 BILIRUBIN DIRECT (BEAKER) (test vsru=126) 0.2 mg/dL 0.0-0.4 ALKALINE PHOSPHATASE (BEAKER) (test ldhp=504) 98 U/L 30-115 AST (SGOT) (BEAKER) (test idhu=466) 19 U/L 5-40 ALT (SGPT) (BEAKER) (test rrsx=701) 36 U/L 5-50 [id number] 05:47:00 Test Item Value Reference Range Comments PROTIME (BEAKER) (test fupu=617) 11.8 sec 9.3-12.0 INR (BEAKER) (test nrud=501) 1.1 <=5.9 PARTIAL THROMBOPLASTIN TIME (BEAKER) (test 35.0 sec 23.0-35.0 xjxq=347) RECOMMENDED COUMADIN/WARFARIN INR THERAPY RANGESSTANDARD DOSE: 2.0 - 3.0 Includes: PROPHYLAXIS forvenous thrombosis, systemic embolization; TREATMENT for venous thrombosis and/or pulmonary embolus.HIGH RISK: Target INR is 2.5-3.5 for patients with mechanical heart valves.Final Information (Auto Output)Final Information (Auto Output)Final Information (Auto Output)PROTHROMBIN [id number] 05:47:00 Test Item Value Reference Range Comments PROTIME (BEAKER) (test crwh=799) 11.8 seconds 9.3-12.0 INR (BEAKER) (test bgkf=334) 1.1 <=5.9 RECOMMENDED COUMADIN/WARFARIN INR THERAPY RANGESSTANDARD DOSE: 2.0 - 3.0 Includes: PROPHYLAXIS forvenous thrombosis, systemic embolization; TREATMENT for venous thrombosis and/or pulmonary embolus.HIGH RISK: Target INR is 2.5-3.5 for patients with mechanical heart valves.BASIC METABOLIC [id number] 05:46: 00 Test Item Value Reference Range Comments SODIUM (BEAKER) (test 133 meq/L 135-148 tlkk=158) POTASSIUM (BEAKER) (test 4.0 meq/L 3.6-5.5 rycn=666) CHLORIDE (BEAKER) (test 103 meq/L 98-106 lpjl=547) CO2 (BEAKER) (test 22 meq/L 20-29 fasn=133) BLOOD UREA NITROGEN 14 mg/dL 10-26 (BEAKER) (test omwy=602) CREATININE (BEAKER) (test 0.71 mg/dL 0.50-1.20 nspc=091) GLUCOSE RANDOM (BEAKER) 100 mg/dL 70-110 (test ntiq=471) CALCIUM (BEAKER) (test 9.3 mg/dL 8.5-10.5 pbkr=475) EGFR (BEAKER) (test 99 mL/min/1.73 sq m ESTIMATED GFR IS NOT oghd=5577) ACCURATE CREATININE CLEARANCE IN PREDICTING GLOMERULAR FILTRATION RATE. ESTIMATED GFR IS NOT APPLICABLE FOR DIALYSIS PATIENTS. [id number] 05:43:00 Test Item Value Reference Range Comments PHOSPHORUS (BEAKER) (test ovqt=830) 2.6 mg/dL 2.5-4.5 [id number] 05:38:00 Test Item Value Reference Range Comments MAGNESIUM (BEAKER) (test lddz=468) 2.0 mg/dL 1.5-3.0 CBC W/PLT COUNT & AUTO [id number] 05:30:00 Test Item Value Reference Range Comments WHITE BLOOD CELL COUNT (BEAKER) (test vocd=545) 11.0 K/ L 4.0-10.0 RED BLOOD CELL COUNT (BEAKER) (test qijq=687) 4.74 M/ L 4.00-5.00 HEMOGLOBIN (BEAKER) (test xfvj=726) 13.3 GM/DL 12.0-15.5 HEMATOCRIT (BEAKER) (test pzgq=240) 42.9 % 36.0-46.0 MEAN CORPUSCULAR VOLUME (BEAKER) (test xvhe=096) 90.5 fL 82.0-99.0 MEAN CORPUSCULAR HEMOGLOBIN (BEAKER) (test 28.1 pg 27.0-33.0 klli=449) MEAN CORPUSCULAR HEMOGLOBIN CONC (BEAKER) (test 31.0 GM/DL 32.0-36.0 bwxr=544) RED CELL DISTRIBUTION WIDTH (BEAKER) (test 13.8 % 12.0-15.0 rkrw=867) PLATELET COUNT (BEAKER) (test mxdj=731) 183 K/CU MM 150-430 MEAN PLATELET VOLUME (BEAKER) (test hlpa=084) 11.7 fL 6.0-11.5 NUCLEATED RED BLOOD CELLS (BEAKER) (test 0 /100 WBC 0-0 mnll=594) NEUTROPHILS RELATIVE PERCENT (BEAKER) (test 68 % znez=461) LYMPHOCYTES RELATIVE PERCENT (BEAKER) (test 23 % jjfk=185) MONOCYTES RELATIVE PERCENT (BEAKER) (test 8 % xqar=581) EOSINOPHILS RELATIVE PERCENT (BEAKER) (test 0 % nlxl=126) BASOPHILS RELATIVE PERCENT (BEAKER) (test 0 % klbx=980) NEUTROPHILS ABSOLUTE COUNT (BEAKER) (test 7.52 K/ L 1.80-8.00 kemu=546) LYMPHOCYTES ABSOLUTE COUNT (BEAKER) (test 2.53 K/ L 1.48-4.50 lpmb=621) MONOCYTES ABSOLUTE COUNT (BEAKER) (test 0.88 K/ L 0.00-1.30 qfpo=182) EOSINOPHILS ABSOLUTE COUNT (BEAKER) (test 0.01 K/ L 0.00-0.50 weha=117) BASOPHILS ABSOLUTE COUNT (BEAKER) (test 0.01 K/ L 0.00-0.20 barc=947) IMMATURE GRANULOCYTES-RELATIVE PERCENT (BEAKER) 1 % 0-0 (test amea=1710) CALCIUM, [id number] 05:06:00 Test Item Value Reference Range Comments CALCIUM IONIZED (BEAKER) (test dmpn=685) 1.18 mmol/L 1.12-1.27 PH, BLOOD (BEAKER) (test apur=6378) 7.45 [id number] 05:21:00 Test Item Value Reference Range Comments PHOSPHORUS (BEAKER) (test dgpf=365) 1.8 mg/dL 2.5-4.5 CALCIUM, [id number] 05:20:00 Test Item Value Reference Range Comments CALCIUM IONIZED (BEAKER) (test wyjp=493) 0.92 mmol/L 1.12-1.27 PH, BLOOD (BEAKER) (test mmla=9761) 7.42 BASIC METABOLIC [id number] 05:18:00 Test Item Value Reference Range Comments SODIUM (BEAKER) (test 145 meq/L 135-148 qgjq=887) POTASSIUM (BEAKER) (test 2.7 meq/L 3.6-5.5 odlk=221) CHLORIDE (BEAKER) (test 124 meq/L 98-106 kuai=706) CO2 (BEAKER) (test 16 meq/L 20-29 updg=239) BLOOD UREA NITROGEN 12 mg/dL 10-26 (BEAKER) (test cyjw=790) CREATININE (BEAKER) (test 0.48 mg/dL 0.50-1.20 zszl=553) GLUCOSE RANDOM (BEAKER) 100 mg/dL 70-110 (test psxs=271) CALCIUM (BEAKER) (test 6.1 mg/dL 8.5-10.5 elam=627) EGFR (BEAKER) (test 155 mL/min/1.73 sq m ESTIMATED GFR IS NOT xszs=1768) ACCURATE CREATININE CLEARANCE IN PREDICTING GLOMERULAR FILTRATION RATE. ESTIMATED GFR IS NOT APPLICABLE FOR DIALYSIS PATIENTS. HEPATIC FUNCTION [id number] 05:16:00 Test Item Value Reference Range Comments TOTAL PROTEIN (BEAKER) (test rnnf=908) 4.3 gm/dL 6.0-8.5 ALBUMIN (BEAKER) (test xmys=6052) 2.5 g/dL 3.5-5.0 BILIRUBIN TOTAL (BEAKER) (test nllj=099) < mg/dL 0.1-1.2 BILIRUBIN DIRECT (BEAKER) (test plyb=187) 0.1 mg/dL 0.0-0.4 ALKALINE PHOSPHATASE (BEAKER) (test xvjw=239) 65 U/L 30-115 AST (SGOT) (BEAKER) (test hvza=263) 15 U/L 5-40 ALT (SGPT) (BEAKER) (test mrag=519) 28 U/L 5-50 [id number] 05:09:00 Test Item Value Reference Range Comments PROTIME (BEAKER) (test guhn=610) 13.1 sec 9.3-12.0 INR (BEAKER) (test cdec=625) 1.2 <=5.9 PARTIAL THROMBOPLASTIN TIME (BEAKER) (test 36.7 sec 23.0-35.0 gova=661) RECOMMENDED COUMADIN/WARFARIN INR THERAPY RANGESSTANDARD DOSE: 2.0 - 3.0 Includes: PROPHYLAXIS forvenous thrombosis, systemic embolization; TREATMENT for venous thrombosis and/or pulmonary embolus.HIGH RISK: Target INR is 2.5-3.5 for patients with mechanical heart valves.Final Information (Auto Output)Final Information (Auto Output)Final Information (Auto Output)PROTHROMBIN [id number] 05:09:00 Test Item Value Reference Range Comments PROTIME (BEAKER) (test dhpj=315) 13.1 seconds 9.3-12.0 INR (BEAKER) (test ebso=854) 1.2 <=5.9 RECOMMENDED COUMADIN/WARFARIN INR THERAPY RANGESSTANDARD DOSE: 2.0 - 3.0 Includes: PROPHYLAXIS forvenous thrombosis, systemic embolization; TREATMENT for venous thrombosis and/or pulmonary embolus.HIGH RISK: Target INR is 2.5-3.5 for patients with mechanical heart valves.[id number] 05:07:00 Test Item Value Reference Range Comments MAGNESIUM (BEAKER) (test tkka=187) 1.2 mg/dL 1.5-3.0 TROPONIN [id number] 15:48:00 Test Item Value Reference Range Comments TROPONIN I (BEAKER) (test gsct=907) < ng/mL 0.00-0.15 Troponin I (TnI) levels [...] acidosis, acute neurological disease, and persistent tachyarrhythmia.HEMOGLOBIN [id number] 10:08:00 Test Item Value Reference Range Comments HEMOGLOBIN A1C (BEAKER) (test xoaq=944) 6.1 % 4.3-6.1 CT, CHEST WITH IV CONTRAST- PE TEST [id number] 09:48:00FINAL REPORT CT of the chest, pulmonary [...] identified in the thorax. Signed: Osmany Finch Verified Date/Time: 12/11/2018 09:48:10 Reading Location: [address] Ortho Consult Reading Room RAD, CHEST, 1 VIEW, NON [id number] 09:10:00Reason for exam:->PULM EDEMAShould this be performed at the bedside?->YesFINAL REPORT Clinical History: PULM EDEMA Comparison Study: None Findings: The heart and lungs are within normal limits. The pleural spaces are clear. No significant bony or soft tissue abnormalities are seen. Impression: No active cardiopulmonary disease. Signed: David Rodriguez Verified Date/Time: 12/11/2018 09:10:32 Reading Location: [facility] Radiology Reading Room COMPREHENSIVE METABOLIC [id number] 07:24:00 Test Item Value Reference Range Comments TOTAL PROTEIN (BEAKER) 6.4 gm/dL 6.0-8.5 (test ubtp=912) ALBUMIN (BEAKER) (test 3.6 g/dL 3.5-5.0 lmgr=7717) ALKALINE PHOSPHATASE 97 U/L 30-115 (BEAKER) (test goww=939) BILIRUBIN TOTAL (BEAKER) 0.4 mg/dL 0.1-1.2 (test jhng=405) SODIUM (BEAKER) (test 139 meq/L 135-148 pyrc=537) POTASSIUM (BEAKER) (test 3.7 meq/L 3.6-5.5 nnvd=072) CHLORIDE (BEAKER) (test 108 meq/L 98-106 mxxf=951) CO2 (BEAKER) (test 24 meq/L 20-29 kvxz=069) BLOOD UREA NITROGEN 18 mg/dL 10-26 (BEAKER) (test kbmw=021) CREATININE (BEAKER) (test 0.78 mg/dL 0.50-1.20 ppie=231) GLUCOSE RANDOM (BEAKER) 105 mg/dL 70-110 (test isya=733) CALCIUM (BEAKER) (test 8.5 mg/dL 8.5-10.5 yrmb=562) AST (SGOT) (BEAKER) (test 24 U/L 5-40 riph=549) ALT (SGPT) (BEAKER) (test 43 U/L 5-50 vomq=922) EGFR (BEAKER) (test 89 mL/min/1.73 sq m ESTIMATED GFR IS NOT zpbj=1096) ACCURATE CREATININE CLEARANCE IN PREDICTING GLOMERULAR FILTRATION RATE. ESTIMATED GFR IS NOT APPLICABLE FOR DIALYSIS PATIENTS. TROPONIN [id number] 07:24:00 Test Item Value Reference Range Comments TROPONIN I (BEAKER) (test jute=431) < ng/mL 0.00-0.15 Troponin I (TnI) levels [...] acidosis, acute neurological disease, and persistent tachyarrhythmia.LIPID [id number] 07:23:00 Test Item Value Reference Range Comments TRIGLYCERIDES (BEAKER) (test xdyp=790) 95 mg/dL CHOLESTEROL (BEAKER) (test nply=849) 180 mg/dL HDL CHOLESTEROL (BEAKER) (test rjyd=062) 50 mg/dL LDL CHOLESTEROL CALCULATED (BEAKER) (test 111 mg/dL uhbw=626) Triglyceride Reference Range: Low Risk <150 Borderline 150- 199 High Risk 200-499 Very High Risk >=500Cholesterol Reference Range: Low Risk <200 Borderline 200-239 High Risk > 240HDL Cholesterol Reference Range: Low Risk >=60 High Risk <40LDL Cholesterol Reference Range: Optimal <100 Near Optimal 100-129 Borderline 130-159 High 160-189 Very High >=[id number] 07:15:00 Test Item Value Reference Range Comments MAGNESIUM (BEAKER) (test huvh=607) 2.0 mg/dL 1.5-3.0 CBC W/PLT COUNT & AUTO [id number] 07:00:00 Test Item Value Reference Range Comments WHITE BLOOD CELL COUNT (BEAKER) (test gvur=278) 6.7 K/ L 4.0-10.0 RED BLOOD CELL COUNT (BEAKER) (test nxnm=986) 4.33 M/ L 4.00-5.00 HEMOGLOBIN (BEAKER) (test nqiz=245) 12.3 GM/DL 12.0-15.5 HEMATOCRIT (BEAKER) (test qkmc=096) 39.9 % 36.0-46.0 MEAN CORPUSCULAR VOLUME (BEAKER) (test hjno=971) 92.1 fL 82.0-99.0 MEAN CORPUSCULAR HEMOGLOBIN (BEAKER) (test 28.4 pg 27.0-33.0 ihtj=645) MEAN CORPUSCULAR HEMOGLOBIN CONC (BEAKER) (test 30.8 GM/DL 32.0-36.0 irwg=400) RED CELL DISTRIBUTION WIDTH (BEAKER) (test 13.8 % 12.0-15.0 injg=238) PLATELET COUNT (BEAKER) (test vzaw=789) 164 K/CU MM 150-430 MEAN PLATELET VOLUME (BEAKER) (test ppvr=158) 11.2 fL 6.0-11.5 NUCLEATED RED BLOOD CELLS (BEAKER) (test 0 /100 WBC 0-0 vlbq=483) NEUTROPHILS RELATIVE PERCENT (BEAKER) (test 59 % qpcl=130) LYMPHOCYTES RELATIVE PERCENT (BEAKER) (test 32 % bilq=730) MONOCYTES RELATIVE PERCENT (BEAKER) (test 8 % zgef=944) EOSINOPHILS RELATIVE PERCENT (BEAKER) (test 1 % ixet=619) BASOPHILS RELATIVE PERCENT (BEAKER) (test 0 % krdj=331) NEUTROPHILS ABSOLUTE COUNT (BEAKER) (test 3.95 K/ L 1.80-8.00 lngo=445) LYMPHOCYTES ABSOLUTE COUNT (BEAKER) (test 2.11 K/ L 1.48-4.50 xadx=825) MONOCYTES ABSOLUTE COUNT (BEAKER) (test 0.54 K/ L 0.00-1.30 dzov=949) EOSINOPHILS ABSOLUTE COUNT (BEAKER) (test 0.06 K/ L 0.00-0.50 hxxp=836) BASOPHILS ABSOLUTE COUNT (BEAKER) (test 0.02 K/ L 0.00-0.20 jexy=789) IMMATURE GRANULOCYTES-RELATIVE PERCENT (BEAKER) 0 % 0-0 (test wneh=7959)
--- OUTSIDE RECORDS SUMMARY | 2019-06-16 16:46 | XMS REPORT | Encounter Summary ---
:1950 Author Reason for Visit Problem Visit Instructions 1. Female stress incontinence urinalysis, dipstick bladder training: care instructions kegel exercises: care instructions stress incontinence in women: care instructions culture (colony count), urine 2. Postmenopausal bleeding vaginal bleeding after menopause: care instructions pap, LB + HPV biopsy, endometrium (PROC) biopsy, endometrial 3. Vaginitis Flagyl 500 mg tablet 4. Patient new to provider Discussion Note: None recorded. Plan of Care Reminders Provider Appointments Follow up Roxy Santana 05/13/2019 MD Zey[facility] 10:30AM Lab Urinalysis, In-House Results Dipstick 04/15/2019 Culture Medical Diagnostic ([place] Count), Urine 04/15/2019 Laboratories ([facility]) Pap, LB + HPV Medical Diagnostic 04/15/2019 Laboratories ([facility]) Biopsy, [facility] 04/15/2019 Medical Center (Lab) Referral None recorded. Procedures Biopsy, Endometrium (PROC) 04/15/2019 Surgeries None recorded. Imaging None recorded. Medications Name Start Date Flagyl 500 mg tablet Take 1 tablet twice a day by oral route for 7 days. Medications Administered None recorded. Vitals Height Weight BMI Blood Pressure 5 ft 2 in 207 lbs 37.9 kg/m2 130/94 mm[Hg] Lab Results Date Name Specimen Result Interpretation Description Value Range Status Address 04/15/2019 Urinalysis, Leukocytes Trace In-House Dipstick Results: For Internal Use Only Nitrite negative In-House Results: For Internal Use Only Urobilinogen 1 In-House Results: For Internal Use Only Protein 30 In-House Results: For Internal Use Only Ph 5.5 In-House Results: For Internal Use Only Blood Negative In-House Results: For Internal Use Only Specific 1.030 In-House [place] Results: For Internal Use Only Ketone Negative In-House Results: For Internal Use Only Bilirubin Negative In-House Results: For Internal Use Only Glucose Negative In-House Results: For Internal Use Only Appearance Clear In-House Results: For Internal Use Only Color Yellow In-House Results: For Internal Use Only Allergies Code Code System Name Reaction Severity Status Onset 17620 RxNorm Tramadol Active Problems Name Status Onset Date Source Essential Hypertension Active 04/15/2019 Heart Disease Active 04/15/2019 Procedures Date Name Performed by Carotid Stent Placement Information not available Tubal Ligation Information not available Foot/toes Surgery Procedure Information not available Vaccine List None recorded. Social History Smoking Status Never Smoker Past Encounters 04/15/2019 Female Stress Incontinence; Postmenopausal Bleeding; Vaginitis; Patient New to Provider Roxy Jeffers MD: [address] [place] [address], [address], [place] [address], Ph. [phone] History of Present Illness Note: Patient is here today with c/o dysfunctional uterine bleeding; states she bled for a few days during the month of 12/2018. Patient is also here today with c/o vaginal odor denies any discharge; shec/o frequency in urination...cg& lt;div>
</div><div>68 yo A1 who presentsc/o vaginal odor for several mons and vaginal spotting on and off for last few weeks. She has been seen by doctors several times without treatment and she is concerned. She c/o urinary urgency , and leaking urine with cough/sneezing, no abdominal or pelvic pain. Her last pap was a long time ago last mammogram in 03/2019. She had colonoscopy 11/2018 this year.--LR</div>Review of Systems: ROS as noted in the HPI Review of Systems None recorded. Physical Exam None recorded.
--- OUTSIDE RECORDS SUMMARY | 2019-06-16 16:46 | XMS REPORT | Encounter Summary ---
:1950 Author Reason for Visit Follow Up Visit Instructions 1. Female stress incontinence open retropubic suspension: before your surgery Discussion Note: None recorded. Plan of Care Reminders Provider Appointments Return to on or around Roxy Santana Office 05/13/2019 MD Zeyad Lab None recorded. Referral None recorded. Procedures None recorded. Surgeries None recorded. Imaging None recorded. Medications No Medications Reported Medications Administered None recorded. Vitals Height Weight BMI Blood Pressure 5 ft 2 in 211 lbs 38.6 kg/m2 170/98 mm[Hg] Lab Results Date Name Specimen Result Interpretation Description Value Range Status Address 04/15/2019 Biopsy, No observation [facility] recorded. [facility] (Lab): [address] [place] [address] 04/15/2019 Surgical Study Report see Final [facility] separate Pending Sale To [facility] Study pathology Medical report. Center (Lab): [address] [place] [address] 04/15/2019 Culture UR Normal Group B negative Final Medical ([place] OS Streptococcus Diagnostic Count), Urine [place] (Gbs) by Laboratories B- Real-time PCR ([facility]): [address], [place] Normal Escherichia negative Final Medical OS Coli by Diagnostic [place] Real-time PCR Laboratories B- ([facility]): [address], [place] Normal Proteus negative Final Medical OS Mirabilis by Diagnostic [place] Real-time PCR Laboratories B- ([facility]): [address], [place] Normal Staphylococcus negative Final Medical OS Saprophyticus by Diagnostic [place] Real-time PCR Laboratories B- ([facility]): [address], [place] Normal Enterococcus negative Final Medical OS Faecalis by Diagnostic [place] Real-time PCR Laboratories B- ([facility]): [address], [place] Normal Enterococcus negative Final Medical OS Faecium by Diagnostic [place] Real-time PCR Laboratories B- ([facility]): [address], [place] Normal Klebsiella negative Final Medical OS Species by Diagnostic [place] Real-time PCR Laboratories B- (Reflex to ([facility]): 2439 1 Speciation by Radha Hunter, Pyrosequencing) [place] UR Normal Pseudomonas negative Final Medical OS Aeruginosa by Diagnostic [place] Real-time PCR Laboratories B- ([facility]): [address] Hunter, [place] 04/15/2019 Pap, LB + HPV TH Normal HPV Type-detect not Final Medical IN 3.0 by Next Gen detected Diagnostic -P Sequencing Laboratories RE (Reflex to ([facility]): 2439 P- HPV-16 Risk Radha Hunter, 2 Assessment [place] Status) TH Normal Liquid Pap Test normal Final Medical IN Diagnostic -P Laboratories RE ([facility]): 2439 P- Radha Hunter, 2 [place] 04/15/2019 Urinalysis, Leukocytes Trace In-House Dipstick Results: For Internal Use Only Nitrite negative In-House Results: For Internal Use Only Urobilinogen 1 In-House Results: For Internal Use Only Protein 30 In-House Results: For Internal Use Only Ph 5.5 In-House Results: For Internal Use Only Blood Negative In-House Results: For Internal Use Only Specific 1.030 In-House [place] Results: For Internal Use Only Ketone Negative In-House Results: For Internal Use Only Bilirubin Negative In-House Results: For Internal Use Only Glucose Negative In-House Results: For Internal Use Only Appearance Clear In-House Results: For Internal Use Only Color Yellow In-House Results: For Internal Use Only Allergies Code Code System Name Reaction Severity Status Onset 54121 RxNorm Tramadol Active Problems Name Status Onset Date Source Essential Hypertension Active 04/15/2019 Heart Disease Active 04/15/2019 Procedures Date Name Performed by Carotid Stent Placement Information not available Tubal Ligation Information not available Foot/toes Surgery Procedure Information not available Vaccine List None recorded. Social History Tobacco Smoking Status Never Smoker Past Encounters 05/13/2019 Female Stress Incontinence Roxy Jeffers MD: [address], [address], [place] [address], Ph. [phone] 04/15/2019 Female Stress Incontinence; Postmenopausal Bleeding; Vaginitis; Patient New to Provider Roxy Jeffers MD: [address], [address], [place] [address], Ph. [phone] History of Present Illness Note: Patient is here today for a f/u on results....cg<div>68 yo G4{ 3A1 here for f/u results from last visit. Pap smear and UCx and vaginal cx and embx wnl. Pt did not tolerate the flagyl, it gave her GI distress after 2 days of taking med pt stopped the tx. Given that her results are benign will not resume treatment. Pt still c/o urinary incontinence when she coughs or sneezes. She denies any feeling of a mass in her vagina. PT is interested in having the stress incontinence surgically treated. Discussed the urethropexy procedure and with vaginal approach with mesh. Pt desires no mesh and desires to have the laparoscopic procedure done.--LR</div>Review of Systems: ROS as noted in the HPI Review of Systems Abbreviated [employer] ROS Reported By: Patient Constitutional: Constitutional: no fever, no fatigue, no significant weight loss/gain Cardiovascular: Cardiovascular: no chest pain, no palpitations, no SOB, no orthopnea, no edema Gastrointestinal: Gastrointestinal: no heartburn, no indigestion, no difficulty swallowing, no nausea, no vomiting, no abdominal pain, no bowel movement changes Genitourinary: Genitourinary: no hematuria, no abnormal bleeding, no flank pain, no trouble urinating, no rash, no lesion, no discharge, no vaginal itching, incontinence, vaginal odor; incontinence with coughing or laughing Physical Exam Brief Female Exam Reported By: Patient Female : External genitalia: normal, no lesions, no rash; wet external labia with urine odor. Vagina: moist mucosa, no discharge, atrophic mucosa; no cystocele, no rectocele and no uterine prolapse. Cervix: no discharge, no cervical motion tenderness, no inflammation. Uterus: midline, smooth, normal size, non-tender. Adnexae: size WNL, no adnexal mass, no adnexal tenderness. Bladder and Urethra: normal bladder and urethra (except where noted); no leakage with cough test
--- NOTE | 2019-06-16 17:40 | RAD REPORT ---
EXAM DESCRIPTION: CT - Head Brain Wo Cont - 06/16/2019 5:12 pm CLINICAL HISTORY: Headache COMPARISON: None. TECHNIQUE: Axial 5 mm thick images of the head were obtained without IV contrast. All CT scans are performed using dose optimization technique as appropriate and may include automated exposure control or mA/KV adjustment according to patient size. FINDINGS: No intracranial hemorrhage, mass, edema or shift of mid-line structures. No acute infarcti on changes seen. Chronic ischemic change seen throughout the cerebral white matter pattern is similar to comparison. No significant atrophy. Ventricles are normal. Mastoid air cells and visualized portions of the paranasal sinuses are clear. No acute bony findings. IMPRESSION: No acute intracranial finding. Prominent chronic ischemic change similar to comparison.
[2019-06-16] MEDS ORDERED: METOCLOPRAMIDE 10 MG/2mL INJ ONE (18:33)
[2019-06-16] MEDS ORDERED: DIPHENHYDRAMINE 50 MG/ML VIAL ONE (18:33)
[2019-06-16] MEDS ORDERED: KETOROLAC 30 MG/ML INJ ONE (18:34)
--- NOTE | 2019-06-16 19:08 | ER ---
Nurse's Notes [facility] Name: Cole Cadena Age: 68 yrs Sex: Female : 1950 Arrival Date: 06/16/2019 Time: 16:52 Bed 17 Private MD: Diagnosis: Headache Presentation: 06/16 16:53 Presenting complaint: EMS states: HEADACHE SINCE NOON. Transition of care: patient was bp not received from another setting of care. Onset of symptoms was June 16, 2019 at 12:00. Risk Assessment: Do you want to hurt yourself or someone else? Patient reports no desire to harm self or others. Initial Sepsis Screen: Does the patient meet any 2 criteria? No. Patient's initial sepsis screen is negative. Does the patient have a suspected source of infection? No. Patient's initial sepsis screen is negative. Care prior to arrival: Glucose check: 110. 16:53 Method Of Arrival: EMS: [facility] bp 16:53 Acuity: DYLAN 4 bp Triage Assessment: 17:11 Headache History: The patient has had previous headaches and this one is similar to bp previous episodes. General: Appears in no apparent distress. comfortable, obese, Behavior is cooperative, appropriate for age, anxious. Pain: Complains of pain in head Pain currently is 8 out of 10 on a pain scale. Pain began 4 hours ago. Also complains of no other associated symptoms. Neuro: No deficits noted. Historical: - Allergies: 17:11 Tramadol HCl; bp - Home Meds: 17:11 amlodipine 10 mg tab 1 tab once daily for Hypertension [Active]; Hydrochlorothiazide bp Oral [Active]; Hydrocodone-Acetaminophen Oral 1 cap twice a day [Active]; lisinopril 40 mg Oral tab 1 tab once daily [Active]; omeprazole 20 mg Oral cpDR 1 cap once daily for Gastroesophageal reflux [Active]; - PMHx: 17:11 Anxiety; Depression; GERD; Hypertension; bp - Immunization history:: Adult Immunizations up to date. - Social history:: Smoking status: Patient/guardian denies using tobacco. - Ebola Screening: : No symptoms or risks identified at this time. Screenin:15 Abuse screen: Denies threats or abuse. Denies injuries from another. Nutritional bp screening: No deficits noted. Tuberculosis screening: No symptoms or risk factors identified. Fall Risk None identified. Assessment: 17:15 General: SEE TRIAGE NOTE. bp 18:30 Reassessment: CT UNREMARKABLE, NO CHANGE IN PT NEURO STATUS. bp Vital Signs: 17:11 BP 181 / 122; Pulse 87; Resp 16; Temp 98.3; Pulse Ox 99% ; Weight 97.52 kg; Height 5 bp ft. 2 in. (157.48 cm); 17:50 BP 190 / 99; Pulse 70; Resp 20; Temp 98.3(O); Pulse Ox 100% on R/A; mh5 19:48 BP 158 / 98; Pulse 85; Resp 16; Pulse Ox 98% on R/A; ao 17:11 Body Mass Index 39.32 (97.52 kg, 157.48 cm) bp ED Course: 16:52 Patient arrived in ED. bp 16:54 Lauro Teixeira, TWYLA is PHCP. pm1 16:54 Robbie Washburn MD is Attending Physician. pm1 16:56 Triage completed. bp 17:10 Haresh Charles, RN is Primary Nurse. bp 17:13 Arm band placed on. bp 17:19 CT Head Brain wo Cont In Process Unspecified. EDMS 17:51 Patient has correct armband on for positive identification. Bed in low position. Call mh5 light in reach. Side rails up X2. Warm blanket given. Pulse ox on. NIBP on. 18:30 Inserted saline lock: 22 gauge in right antecubital area, using aseptic technique. bp 19:47 No provider procedures requiring assistance completed. IV discontinued, intact, ao bleeding controlled, No redness/swelling at site. Pressure dressing applied. Administered Medications: 18:30 Drug: TORadol - Ketorolac 15 mg Route: IVP; Site: right antecubital; bp 18:30 Drug: Reglan 10 mg Route: IVP; Site: right antecubital; bp 18:30 Drug: Benadryl 12.5 mg Route: IVP; Site: right antecubital; bp Outcome: 19:06 Discharge ordered by . pm1 19:47 Discharged to home via wheelchair. ao 19:47 Condition: stable 19:47 Discharge instructions given to patient, Instructed on discharge instructions, follow up and referral plans. Demonstrated understanding of instructions, follow-up care, medications. 19:48 Patient left the ED. ao Signatures: Dispatcher [employer] EDUT Jovon, Bry, RN RN ao Lauro Teixeira, HOUSE MOVER HELPER HOUSE MOVER HELPER pm1 Noy Bo 5 Haresh Charles, RN RN bp
--- NOTE | 2019-06-16 19:08 | EDPHYS ---
Physician Documentation [facility] Name: Cole Cadena Age: 68 yrs Sex: Female : 1950 Arrival Date: 06/16/2019 Time: 16:52 Bed 17 Private MD: ED Physician Robbie Washburn HPI: 06/16 18:23 This 68 yrs old Black Female presents to ER via EMS with complaints of Headache. pm1 18:23 The patient complains of pain to the forehead and right eye. The patient describes the pm1 headache as aching, constant. Onset: The symptoms/episode began/occurred today, at 12:00. Associated signs and symptoms: Pertinent negatives: fever, nausea, neck stiffness, Photophobia vomiting. Severity of symptoms: in the emergency department the pain is unchanged. Headache History: The patient has had previous headaches and this one is similar to previous episodes. The symptoms are alleviated by nothing. the symptoms are aggravated by nothing. The patient has experienced similar episodes in the past, multiple times, and the symptoms today are exactly the same, to previous headaches. Historical: - Allergies: 17:11 Tramadol HCl; bp - Home Meds: 17:11 amlodipine 10 mg tab 1 tab once daily for Hypertension [Active]; Hydrochlorothiazide bp Oral [Active]; Hydrocodone-Acetaminophen Oral 1 cap twice a day [Active]; lisinopril 40 mg Oral tab 1 tab once daily [Active]; omeprazole 20 mg Oral cpDR 1 cap once daily for Gastroesophageal reflux [Active]; - PMHx: 17:11 Anxiety; Depression; GERD; Hypertension; bp - Immunization history:: Adult Immunizations up to date. - Social history:: Smoking status: Patient/guardian denies using tobacco. - Ebola Screening: : No symptoms or risks identified at this time. ROS: 18:23 Constitutional: Negative for fever, chills, and weight loss, Eyes: Negative for injury, pm1 pain, redness, and discharge, ENT: Negative for injury, pain, and discharge, Neck: Negative for injury, pain, and swelling, Cardiovascular: Negative for chest pain, palpitations, and edema, Respiratory: Negative for shortness of breath, cough, wheezing, and pleuritic chest pain, Abdomen/GI: Negative for abdominal pain, nausea, vomiting, diarrhea, and constipation, Back: Negative for injury and pain, MS/Extremity: Negative for injury and deformity, Skin: Negative for injury, rash, and discoloration. 18:23 Neuro: Positive for headache. Exam: 18:23 Constitutional: This is a well developed, well nourished patient who is awake, alert, pm1 and in no acute distress. Head/Face: Normocephalic, atraumatic. Eyes: Pupils equal round and reactive to light, extra-ocular motions intact. Lids and lashes normal. Conjunctiva and sclera are non-icteric and not injected. Cornea within normal limits. Periorbital areas with no swelling, redness, or edema. ENT: Nares patent. No nasal discharge, no septal abnormalities noted. Tympanic membranes are normal and external auditory canals are clear. Oropharynx with no redness, swelling, or masses, exudates, or evidence of obstruction, uvula midline. Mucous membranes moist. Neck: Trachea midline, no thyromegaly or masses palpated, and no cervical lymphadenopathy. Supple, full range of motion without nuchal rigidity, or vertebral point tenderness. No Meningismus. Chest/axilla: Normal chest wall appearance and motion. Nontender with no deformity. No lesions are appreciated. Cardiovascular: Regular rate and rhythm with a normal S1 and S2. No gallops, murmurs, or rubs. Normal PMI, no JVD. No pulse deficits. Respiratory: Lungs have equal breath sounds bilaterally, clear to auscultation and percussion. No rales, rhonchi or wheezes noted. No increased work of breathing, no retractions or nasal flaring. Back: No spinal tenderness. No costovertebral tenderness. Full range of motion. Skin: Warm, dry with normal turgor. Normal color with no rashes, no lesions, and no evidence of cellulitis. 18:23 Musculoskeletal/extremity: Extremities: all appear grossly normal, with no appreciated pain with palpation. 18:23 Neuro: Orientation: is normal, Mentation: is normal, Cranial nerves: CN II- XII are normal as tested, Motor: is normal, moves all fours. Vital Signs: 17:11 BP 181 / 122; Pulse 87; Resp 16; Temp 98.3; Pulse Ox 99% ; Weight 97.52 kg; Height 5 bp ft. 2 in. (157.48 cm); 17:50 BP 190 / 99; Pulse 70; Resp 20; Temp 98.3(O); Pulse Ox 100% on R/A; mh5 19:48 BP 158 / 98; Pulse 85; Resp 16; Pulse Ox 98% on R/A; ao 17:11 Body Mass Index 39.32 (97.52 kg, 157.48 cm) bp MDM: 16:54 Patient medically screened. pm1 19:06 Data reviewed: vital signs. Data interpreted: Pulse oximetry: on room air is 100 %. pm1 Interpretation: normal. Counseling: I had a detailed discussion with the patient and/or guardian regarding: the historical points, exam findings, and any diagnostic results supporting the discharge/admit diagnosis, radiology results, the need for outpatient follow up, to return to the emergency department if symptoms worsen or persist or if there are any questions or concerns that arise at home. 06/16 16:55 Order name: CT Head Brain wo Cont; Complete Time: 18:22 pm1 06/16 18:23 Order name: IV Saline Lock; Complete Time: 18:42 pm1 Administered Medications: 18:30 Drug: TORadol - Ketorolac 15 mg Route: IVP; Site: right antecubital; bp 18:30 Drug: Reglan 10 mg Route: IVP; Site: right antecubital; bp 18:30 Drug: Benadryl 12.5 mg Route: IVP; Site: right antecubital; bp Disposition: 06/17 07:02 Co-signature as Attending Physician, Robbie Washburn MD. rn Disposition: 06/16/19 19:06 Discharged to Home. Impression: Headache. - Condition is Stable. - Discharge Instructions: General Headache Without Cause. - Prescriptions for Fiorinal 50- 325-40 mg Oral Capsule - take 1 capsule by ORAL route every 4 hours As needed - not to exceed 6 capsules per day; 20 capsule. - Medication Reconciliation Form, Thank You Letter, Antibiotic Education, Prescription Opioid Use form. - Follow up: Emergency Department; When: As needed; Reason: Worsening of condition. Follow up: Private Physician; When: 2 - 3 days; Reason: Recheck today's complaints, Continuance of care, Re-evaluation by your physician. - Problem is new. - Symptoms have improved. Signatures: Dispatcher [employer] EDRobbie Yoder MD MD rn Ortiz, Alex, RN RN ao Marinas, Lauro, ASPHALT PAVER ASPHALT PAVER pm1 Haresh Charles, RN RN bp Corrections: (The following items were deleted from the chart) 06/16 19:48 19:06 06/16/2019 19:06 Discharged to Home. Impression: Headache. Condition is Stable. ao Forms are Medication Reconciliation Form, Thank You Letter, Antibiotic Education, Prescription Opioid Use. Follow up: Emergency Department; When: As needed; Reason: Worsening of condition. Follow up: Private Physician; When: 2 - 3 days; Reason: Recheck today's complaints, Continuance of care, Re-evaluation by your physician. Problem is new. Symptoms have improved. pm1
[2019-06-16 21:28] VITALS: BP 158/98; O2SAT 98
[2019-06-16 21:38] VITALS: TEMP 98
== END 2019-06-16 19:48 | disposition home or self-care (01) ==
LOC: ER 16:42
DX: R51 Headache (principal); I10 Essential (primary) hypertension; F32.9 Major depressive disorder, single episode, unspecified; F41.9 Anxiety disorder, unspecified; Z88.6 Allergy status to analgesic agent
CPT/HCPCS: 70450; 96375; 96374; 99284; J2765

== ENCOUNTER 2019-07-15 14:19 | Emergency (ER) | payer OTHER ==
[2019-07-15] MEDS ORDERED: FENTANYL CITR 100 MCG/2 ML ONE (14:49)
[2019-07-15] MEDS ORDERED: ONDANSETRON 4 MG/2 ML VIAL ONE (14:49)
[2019-07-15] MEDS ORDERED: NA CHLORIDE 0.9% 1,000 ML ONE (14:50)
[2019-07-15 14:55] LABS: Absolute Lymphocytes (CBC) 1.8 K/uL (0.7-4.9); Basophils % 1.4 % (0-1.3); Hematocrit 36.8 % (36.0-45.0); Lymphocytes % 33.8 % (15.3-44.8); MPV 9.9 fL (7.6-11.3); RBC Red Blood Cell Count 4.23 M/uL (3.86-4.86)
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
[2019-07-15 15:20] LABS: Albumin 3.8 g/dL (3.4-5.0); Bilirubin Total 0.3 mg/dL (0.2-1.0); Potassium 3.7 mmol/L (3.5-5.1); Protein, Total 7.4 g/dL (6.4-8.2)
[2019-07-15 16:27] VITALS: TEMP 97.3
[2019-07-15 16:28] VITALS: O2SAT 94
[2019-07-15 16:29] VITALS: BP 189/111
== END 2019-07-15 16:20 | disposition home or self-care (01) ==
LOC: ER 14:19
DX: T20.10XA Burn of first degree of head, face, and neck, unspecified site, initial encounter (principal); X11.8XXA Contact with other hot tap-water, initial encounter; Y93.89 Activity, other specified; Y92.9 Unspecified place or not applicable
CPT/HCPCS: 96361; 85025; 36415; 80053; 96375; 96374; 99284; J3010; J7030; J2405

== ENCOUNTER 2020-08-03 10:45 | Observation (INO) | payer OTHER ==
[2020-08-03 11:20] LABS: Protime INR 1.1
[2020-08-03 11:25] LABS: Absolute Lymphocytes (CBC) 1.8 K/uL (0.7-4.9); Basophils % 1.2 % (0-1.3); Lymphocytes % 34.6 % (15.3-44.8); MPV 10.2 fL (7.6-11.3); RBC Red Blood Cell Count 4.25 M/uL (3.86-4.86)
[2020-08-03] MEDS ORDERED: NA CHLORIDE 0.9% 1,000 ML ONE (11:26)
[2020-08-03] MEDS ORDERED: ASPIRIN 81 MG CHEWABLE TABLET ONE (11:26)
--- OUTSIDE RECORDS SUMMARY | 2020-08-03 11:32 | XMS REPORT | Clinical Summary ---
:1950 Author Organization [facility] Address [address] [place] [address] Care Team Providers Name Role Phone Jonelle Milian MD Primary Care Provider Allergies Active Allergy Reactions Severity Noted Date Comments Tramadol 12/11/2018 Medications Medication Sig Dispensed Refills Start Date End Date Status ALPRAZolam (XANAX) 2 Take 2 mg by mouth 0 Active MG tablet 3 (three) times daily as needed for Sleep. HYDROcodone-acetaminop Take 1 tablet by 0 Active hen (NORCO 7.5-325) mouth 2 (two) 7.5-325 mg per tablet times daily as needed for Pain. carvedilol (COREG) 25 Take 25 mg by 0 Active MG tablet mouth 2 (two) times daily with breakfast and dinner. cycloSPORINE Place 1 drop into 0 Active (RESTASIS) 0.05 % both eyes 2 (two) ophthalmic emulsion times daily. predniSONE (DELTASONE) Take 20 mg by 0 Active 20 MG tablet mouth daily. amLODIPine (NORVASC) Take 10 mg by 0 Active 10 MG tablet mouth daily. Active Problems Problem Noted Date NSTEMI (non-ST elevation myocardial infarction) 2018 Social History Tobacco Use Types Packs/Day Years Used Date Never Smoker Smokeless Tobacco: Never Used Sex Assigned at Date Recorded Not on file Last Filed Vital Signs Not on file Plan of Treatment Health Maintenance Due Date Last Done Comments BREAST CANCER SCREENING 1950 COLON CANCER SCREENING COLONOSCOPY 1950 PNEUMOCOCCAL 65+ YRS (1 of 1 - [id number]) 2014 MEDICARE ANNUAL WELLNESS (YEAR 2 or FIRST YEAR if no 12/08/2015 IPPE) INFLUENZA VACCINE (#1) 2020 Results Not on fileafter 08/03/2019 Insurance Payer Benefit Plan / Subscriber ID Effective Dates Phone Addre ss Type Group MEDICARE MEDICARE A B [id number] 2014-Present Medicare [place] [id number] 2018-Present Advance Directives For more information, please contact: [phone] Code Status Date Activated Date Inactivated Comments Full Code 12/11/2018 5:02 AM 12/13/2018 5:56 PM This code status was determined by: Patient
--- OUTSIDE RECORDS SUMMARY | 2020-08-03 11:34 | XMS REPORT | Continuity of Care Document ---
:1950 Author Organization [facility] t Address [address] [place] [address] Care Team Providers Name Role Phone Evelina Gomez MD Primary Care Physician EVELINA GOMEZ Attending Clinician Unavailable EVELINA GOMEZ Admitting Clinician Unavailable Problems Condition Condition Condition Status Onset Resolution Last Treating Co mments Source Name Details Category Date Date Treatment Clinician Date Essential Essential Problem Active [facility] hypertensi Hypertensi 04-15 da on on 00:00: Medical 00 Group Heart Heart Problem Active [facility] disease Disease 04-15 da 00:00: Medical 00 Group NSTEMI NSTEMI Disease Active [facility] - elevation elevation 00:00: Medi [facility] myocardial myocardial 00 Ce nter infarction infarction ) ) Allergies, Adverse Reactions, Alerts Allergy Allergy Status Severity Reaction(s) Onset Inactive Treating Comm ents Source Name Type Date Date Clinician Tramadol Propensi Active [facility] - adverse 00:00: Medical reaction 00 Center s Tramadol Allergy Active [facility] to da substanc Medical e Group Social History Social Habit Start Date Stop Date Quantity Comments Source Sex Assigned At [facility] Tobacco use and 2018-12-16 2018-12-16 Never used RYANN Knowles Niyah kes - exposure 00:00:00 00:00:00 [facility] Center Smoking Status Start Date Stop Date Source [facility] Medications Ordered Filled Start Stop Current Ordering Indication Dosage Frequency Signature Comments Components Source Medication Medication Date Date Medication? Clinician (SIG) Name Name cycloSPORIN Yes 1[drp] Q.5D Place [address] E 3-08 drop into [facility] - (RESTASIS) 15:56: both eyes Me dical 0.05 % 15 2 (two) Center ophthalmic times emulsion daily. predniSONE Yes 20mg QD Take [address] (DELTASONE) 3-08 by mouth [facility] s - 20 MG 15:56: daily. Medical tablet 15 Center amLODIPine Yes 10mg QD Take [address] (NORVASC) 3-08 by mouth [facility] - 10 MG 15:56: daily. Medical tablet 15 [place] ALPRAZolam Yes 2mg Take [address] (XANAX) 2 3-08 by mouth 3 [facility] - MG tablet 15:56: (three) Medic al 14 times Center daily as needed for Sleep. HYDROcodone Yes 1{tbl} Take [address] -acetaminop 3-08 tablet by [facility] - hen (NORCO 15:56: mouth 2 Medi amirah 7.5-325) 14 (two) Center 7.5-325 mg times per tablet daily as needed for Pain. carvedilol Yes 25mg Take [address] (COREG) 25 3-08 by mouth 2 [facility] - MG tablet 15:56: (two) Medical 14 times Center daily with breakfast and dinner. Vital Signs Vital Name Observation Time Observation Value Comments Source BP Diastolic 2019-05-13 00:00:00 98 [facility]Hg[facility] Height 2019-05-13 00:00:00 62 [in_i] [facility] BMI (Body Mass 2019-05-13 00:00:00 38.6 kg/m2 [facility] Medical Index) Group BP Systolic 2019-05-13 00:00:00 170 mm[Hg] [facility] Body Weight 2019-05-13 00:00:00 211 [lb_av] [facility] BP Diastolic 2019-04-15 00:00:00 94 mm[Hg] [facility] Height 2019-04-15 00:00:00 62 [in_i] [facility] BMI (Body Mass 2019-04-15 00:00:00 37.9 kg/m2 [facility] analyst Medical Index) Group BP Systolic 2019-04-15 00:00:00 130 mm[Hg] [facility] Body Weight 2019-04-15 00:00:00 207 [lb_av] [facility] Procedures Procedure Date / Time Performed Performing Clinician Sourc e Carotid Stent [facility]al [facility] Foot/toes Surgery [facility] Plan of Care Planned Activity Planned Date Details Comments Source Future Scheduled 2020-06-08 INFLUENZA VACCINE (#1) [facility] Test 00:00:00 [code = INFLUENZA Medical Ce nter VACCINE (#1)] Future Scheduled 2015-12-[address] [facility] - Test 00:00:00 WELLNESS (YEAR 2 or Medical Center FIRST YEAR if no IPPE) [code = MEDICARE ANNUAL WELLNESS (YEAR 2 or FIRST YEAR if no IPPE)] Future Scheduled 2014 PNEUMOCOCCAL 65+ [facility] - Test 00:00:00 (1 of 1 - Medical Center [id number]) [code = PNEUMOCOCCAL 65+ YRS (1 of 1 - [id number] PCV13)] Future Scheduled [address] [facility] - Test 00:00:00 malignant neoplasm of Medica l Center breast (procedure) [code = 877478125] Future Scheduled [address] [facility] - Test 00:00:00 malignant neoplasm of Medica l Center colon (procedure) [code = 941376817] Encounters Start End Encounter Admission Attending Care Care Encounter Source Date/Time Date/Time Type Type Clinicians Facility Department ID 2019-05-13 2019-05-13 [facility] [place] - [id number] M at[facility] 00:00:00 00:00:00 Chantale Shea Medicshirley hernandez MD: [address] [facility], OBGYN [address], [place] [address] , Ph. [phone] 2019-04-15 2019-04-15 Roxy [facility] [place] - [id number] M caroline 00:00:00 00:00:00 Max Srivastava, Medical Medica david AKERS: [address] [place] [address] [address], [place] [address] , Ph. [phone] Results Test Description Test Time Test Comments Results Result Comments Source Thyroid Stimulating Hormone 2019-05-01 22:54:49 Test Item Value Reference Range Interpretation Comme nts TSH (test code = TSH) 1.940 mIU/mL 0.270-4.200 Comprehensive Metabolic [id number] 22:34:40 Test Item Value Reference Range Interpretation Comments Sodium Level (test code = Sodium 143.0 mmol/L 135.0-145.0 Level) Potassium Level (test code = 3.8 mmol/L 3.5-5.1 Potassium Level) Chloride Level (test code = 103 mmol/L 98-105 Chloride Level) CO2 (test code = CO2) 24 mmol/L 22-29 Anion Gap (test code = Anion 16 mmol/L 7-16 Gap) BUN (test code = BUN) 17.00 mg/dL 8.00-23.00 Creatinine Level (test code = 0.80 mg/dL 0.50-0.90 Creatinine Level) BUN/Creat Ratio (test code = 21 N BUN/Creat Ratio) Glucose Level (test code = 125 mg/dL 70-115 H Glucose Level) Calcium Level (test code = 9.6 mg/dL 8.3-10.5 Calcium Level) Alk Phos (test code = Alk Phos) 122 U/L 35-104 H Bilirubin Total (test code = 0.3 mg/dL 0.1-0.9 Bilirubin Total) Albumin Level (test code = 4.4 g/dL 3.5-5.2 Albumin Level) Protein Total (test code = 7.5 g/dL 6.4-8.3 Protein Total) ALT (test code = ALT) 33 U/L 1-33 AST (test code = AST) 27 U/L 1-32 Globulin (test code = Globulin) 3.1 g/dL 2.9-3.1 A/G Ratio (test code = A/G 1.4 ratio N Ratio) Lipid [id number] 22:34:40 Test Item Value Reference Range Interpretation Comments Cholesterol Total 212 mg/dL 0-200 H RISK OF HE ART (test code = DISEASEPublishe d by Cholesterol Total) [employer] Farhana lyte Optimal Borderl ine Increased RiskC HOL <200 200-239 >2 40TRIG <150 150-199 >2 00HDL Male >60 <40H DL Female >60 <5 0LDL <100 130-159 >1 60LDL Near optimal is 100-129 Triglycerides (test 157 mg/dL 9-200 code = Triglycerides) HDL (test code = HDL) 50 mg/dL 50-60 LDL (test code = LDL) 130 mg/dL 0-130 The eq uation being used in this calcula tion is LDL = (Chol - H DL) - (Trig / 5) VLDL (test code = 31 mg/dL 5-40 The equati on being used VLDL) in this calcula tion is VLDL = Trig / 5 Chol/HDL (test code = 4.2 ratio 0.0-4.4 Chol/HDL) LDL/HDL Ratio (test 3 N The equa tion being used code = LDL/HDL Ratio) in thi s calculation is LDL/HDL Ratio=L DL Calc/HDL Chol Comprehensive Metabolic [id number] 22:34:40 Test Item Value Reference Range Interpretation Comments Sodium Level (test 143.0 mmol/L 135.0-145.0 code = Sodium Level) Potassium Level 3.8 mmol/L 3.5-5.1 (test code = Potassium Level) Chloride Level (test 103 mmol/L 98-105 code = Chloride Level) CO2 (test code = 24 mmol/L 22-29 CO2) Anion Gap (test code 16 mmol/L 7-16 = Anion Gap) BUN (test code = 17.00 mg/dL 8.00-23.00 BUN) Creatinine Level 0.80 mg/dL 0.50-0.90 (test code = Creatinine Level) BUN/Creat Ratio 21 N (test code = BUN/Creat Ratio) Glucose Level (test 125 mg/dL 70-115 H code = Glucose Level) Calcium Level (test 9.6 mg/dL 8.3-10.5 code = Calcium Level) Alk Phos (test code 122 U/L 35-104 H = Alk Phos) Bilirubin Total 0.3 mg/dL 0.1-0.9 (test code = Bilirubin Total) Albumin Level (test 4.4 g/dL 3.5-5.2 code = Albumin Level) Protein Total (test 7.5 g/dL 6.4-8.3 code = Protein Total) ALT (test code = 33 U/L 1-33 ALT) AST (test code = 27 U/L 1-32 AST) Globulin (test code 3.1 g/dL 2.9-3.1 = Globulin) A/G Ratio (test code 1.4 ratio N = A/G Ratio) eGFR AA (test code = >60 N eGFR (e stimated eGFR AA) mL/min/1.73 m2 Glomerular Filtration Rate ) is an estimated va lue, calculated from the patient's serum creatinine usin g the MDRD equation. It is NOT the patient 's actual GFR. The eGFR provides a more clinically usef ul measure of kidn ey disease than se rum creatinine alone.This calculation edin es sex and race in to account, if the information is provided. If th e race is not provided, and t he patient is -Kya n, multiply by 1.2 12. If sex is not provided, and t he patient is fema le, multiply by 0.7 42. Results for pat ients <18 years of ag e have not been validated by th e MDRD study and should be interpreted wit h caution. eGFR R esult Interpretation: eGFR > or = 60 is in the Normal RangeeGF R < 60 may mean kid keena diseaseeGFR < 1 5 may mean kidney failure Rang es recommended by the National Kidney Foundation, http://nkdep.ni h.gov Comprehensive Metabolic [id number] 22:34:40 Test Item Value Reference Range Interpretation Comments Sodium Level (test 143.0 mmol/L 135.0-145.0 code = Sodium Level) Potassium Level 3.8 mmol/L 3.5-5.1 (test code = Potassium Level) Chloride Level (test 103 mmol/L 98-105 code = Chloride Level) CO2 (test code = 24 mmol/L 22-29 CO2) Anion Gap (test code 16 mmol/L 7-16 = Anion Gap) BUN (test code = 17.00 mg/dL 8.00-23.00 BUN) Creatinine Level 0.80 mg/dL 0.50-0.90 (test code = Creatinine Level) BUN/Creat Ratio 21 N (test code = BUN/Creat Ratio) Glucose Level (test 125 mg/dL 70-115 H code = Glucose Level) Calcium Level (test 9.6 mg/dL 8.3-10.5 code = Calcium Level) Alk Phos (test code 122 U/L 35-104 H = Alk Phos) Bilirubin Total 0.3 mg/dL 0.1-0.9 (test code = Bilirubin Total) Albumin Level (test 4.4 g/dL 3.5-5.2 code = Albumin Level) Protein Total (test 7.5 g/dL 6.4-8.3 code = Protein Total) ALT (test code = 33 U/L 1-33 ALT) AST (test code = 27 U/L 1-32 AST) Globulin (test code 3.1 g/dL 2.9-3.1 = Globulin) A/G Ratio (test code 1.4 ratio N = A/G Ratio) eGFR AA (test code = >60 N eGFR (e stimated eGFR AA) mL/min/1.73 m2 Glomerular Filtration Rate ) is an estimated va lue, calculated from the patient's serum creatinine usin g the MDRD equation. It is NOT the patient 's actual GFR. The eGFR provides a more clinically usef ul measure of kidn ey disease than se rum creatinine alone.This calculation edin es sex and race in to account, if the information is provided. If th e race is not provided, and t he patient is -Kya n, multiply by 1.2 12. If sex is not provided, and t he patient is fema le, multiply by 0.7 42. Results for pat ients <18 years of ag e have not been validated by th e MDRD study and should be interpreted wit h caution. eGFR R esult Interpretation: eGFR > or = 60 is in the Normal RangeeGF R < 60 may mean kid keena diseaseeGFR < 1 5 may mean kidney failure Rang es recommended by the National Kidney Foundation, http://nkdep.ni h.gov eGFR Non-AA (test >60.00 N eGFR (anton mated code = eGFR Non-AA) mL/min/1.73 m2 Glomer ular Filtration Rate ) is an estimated va lue, calculated from the patient's serum creatinine usin g the MDRD equation. It is NOT the patient 's actual GFR. The eGFR provides a more clinically usef ul measure of kidn ey disease than se rum creatinine alone.This calculation edin es sex and race in to account, if the information is provided. If th e race is not provided, and t he patient is -Kya n, multiply by 1.2 12. If sex is not provided, and t he patient is fema le, multiply by 0.7 42. Results for pat ients <18 years of ag e have not been validated by th e MDRD study and should be interpreted wit h caution. eGFR R esult Interpretation: eGFR > or = 60 is in the Normal RangeeGF R < 60 may mean kid keena diseaseeGFR < 1 5 may mean kidney failure Rang es recommended by the National Kidney Foundation, http://nkdep.ni h.gov [id number] 21:47:04 Test Item Value Reference Range Interpretation Comments RBC Morph (test code = RBC Normal Normal Morph) Platelet Morphology (test Platelet Clumping Normal A code = Platelet Morphology) Anisocyte (test code = None None Anisocyte) Hypochromia (test code = None Seen None Seen Hypochromia) Microcyte (test code = None Seen None Seen Microcyte) Macrocyte (test code = None Seen None Seen Macrocyte) Poik (test code = Poik) None Seen None Seen Polychrom (test code = None Seen None Seen Polychrom) Acanthocyte (test code = None Seen None Seen Acanthocyte) Baso Stippling RBC (test None Seen None Seen code = Baso Stippling RBC) Plt Estimation (test code = Normal Normal Plt Estimation) Automated [id number] 21:28:33 Test Item Value Reference Range Interpretation Comments Neutro Auto (test code = Neutro 59.6 % 36.0-70.0 Auto) Lymph Auto (test code = Lymph Auto) 29.8 % 12.0-44.0 [place] Auto (test code = [place] Auto) 8.2 % 0.0-11.0 Eos, Auto (test code = Eos, Auto) 1.8 % 0.0-7.0 Basophil Auto (test code = Basophil 0.4 % 0.0-2.0 Auto) Neutro Absolute (test code = Neutro 3.1 x10 1.6-7.4 Absolute) Lymph Absolute (test code = Lymph 1.53 x10 .50-4.60 Absolute) [place] Absolute (test code = [place] .42 x10 .00-1.20 Absolute) Eos Absolute (test code = Eos 0.09 x10 0.00-0.74 Absolute) Baso Absolute (test code = Baso 0.02 x10 0.00-0.21 Absolute) IG [id number] 21:28:33 Test Item Value Reference Range Interpretation Comments IG (test code = IG) 0.2 % 0.0-5.0 IG Abs (test code = IG Abs) 0 x10 N Complete Blood Count with [id number] 21:28:32 Test Item Value Reference Range Interpretation Comments WBC (test code = WBC) 5.1 x10 4.4-10.5 RBC (test code = RBC) 4.69 x10 3.75-5.20 Hgb (test code = Hgb) 13.5 g/dL 12.2-14.8 MCV (test code = MCV) 89.60 fL 80.00-100.00 Hct (test code = Hct) 42.0 % 36.5-44.4 MCHC (test code = 32.10 g/dL 32.00-37.50 MCHC) RDW CV (test code = 12.9 % 11.5-14.5 RDW CV) MCH (test code = MCH) 28.8 pg 27.0-32.5 Platelets (test code = 126.0 x10 140.0-440.0 L Platelets) MPV (test code = MPV) 13.2 fL N Slide Review (test Smear Auto A Result cr eated by code = Slide Review) GL_SJM_ SLIDE_REV_AUTO GL_SJM_XN_RFLX GL_SJM_XN_RFLX nRBC (test code = 0 N nRBC) NRBC Abs (test code = 0.00 x10 N NRBC Abs) IPF (test code = IPF) 11 % N Complete Blood Count with [id number] 21:28:32 Test Item Value Reference Range Interpretation Comments WBC (test code = WBC) 5.1 x10 4.4-10.5 RBC (test code = RBC) 4.69 x10 3.75-5.20 Hgb (test code = Hgb) 13.5 g/dL 12.2-14.8 MCV (test code = MCV) 89.60 fL 80.00-100.00 Hct (test code = Hct) 42.0 % 36.5-44.4 MCHC (test code = 32.10 g/dL 32.00-37.50 MCHC) RDW CV (test code = 12.9 % 11.5-14.5 RDW CV) MCH (test code = MCH) 28.8 pg 27.0-32.5 Platelets (test code = 126.0 x10 140.0-440.0 L Platelets) MPV (test code = MPV) 13.2 fL N Slide Review (test Smear Auto A Result cr eated by code = Slide Review) GL_SJM_ SLIDE_REV_AUTO GL_SJM_XN_RFLX GL_SJM_XN_RFLX nRBC (test code = 0 N nRBC) NRBC Abs (test code = 0.00 x10 N NRBC Abs) Pos Morph XN (test A N code = Pos Morph XN) Pos Count XN (test A N code = Pos Count XN) IPF (test code = IPF) 11 % N pap, LB + [id number] 00:00:00 Test Item Value Reference Range Interpretation Comments HPV type-detect 3.0 by next gen not detected sequencing (reflex to HPV-16 risk assessment status) (test code = HPV type-detect 3.0 by next gen sequencing (reflex to HPV-16 risk assessment status)) General categories normal [interpretation] of Cervical or vaginal smear or scraping by Cyto stain (test code = 98434-9) [facility] [#/volume] in [id number] 00:00:00 Test Item Value Reference Range Interpretation Comments group B streptococcus (gbs) by negative real-time PCR (test code = group B streptococcus (gbs) by real-time PCR) escherichia coli by real-time PCR negative (test code = escherichia coli by real-time PCR) proteus mirabilis by real-time PCR negative (test code = proteus mirabilis by real-time PCR) staphylococcus saprophyticus by negative real-time PCR (test code = staphylococcus saprophyticus by real-time PCR) enterococcus faecalis by real-time negative PCR (test code = enterococcus faecalis by real-time PCR) enterococcus faecium by real-time negative PCR (test code = enterococcus faecium by real-time PCR) klebsiella species by real-time PCR negative (reflex to speciation by pyrosequencing) (test code = klebsiella species by real-time PCR (reflex to speciation by pyrosequencing)) pseudomonas aeruginosa by real-time negative PCR (test code = pseudomonas aeruginosa by real-time PCR) [facility] macro (dipstick) panel - [id number] 10:21:00 Test Item Value Reference Range Interpretation Comments Leukocytes (test code = Leukocytes) Trace Nitrite (test code = Nitrite) negative Urobilinogen (test code = 1 Urobilinogen) Protein (test code = Protein) 30 pH (test code = pH) 5.5 Blood (test code = Blood) Negative Specific [place] (test code = 1.030 Specific [place]) Ketone (test code = Ketone) Negative Bilirubin (test code = Bilirubin) Negative Glucose (test code = Glucose) Negative Appearance (test code = Appearance) Clear Color (test code = Color) Yellow [facility] macro (dipstick) panel - [id number] 10:21:00 Test Item Value Reference Range Interpretation Comments Leukocytes (test code = Leukocytes) Trace Nitrite (test code = Nitrite) negative Urobilinogen (test code = 1 Urobilinogen) Protein (test code = Protein) 30 pH (test code = pH) 5.5 Blood (test code = Blood) Negative Specific [place] (test code = 1.030 Specific [place]) Ketone (test code = Ketone) Negative Bilirubin (test code = Bilirubin) Negative Glucose (test code = Glucose) Negative Appearance (test code = Appearance) Clear Color (test code = Color) Yellow [facility] [id number] 09:00:00 Test Item Value Reference Range Interpretation Comments Surgical pathology see separate pathology study (test code = report. 70892-2) [facility] [id number] 12:33:00 Test Item Value Reference Range Interpretation Comments POC-GLUCOSE METER 131 mg/dL 70-110 H TESTED AT [facility] ([facility]) (test code [address] [facility] [place] = [address]) [address] URINE [id number] 07:56:00 Test Item Value Reference Range Interpretation Comments CULTURE ([facility]) (test ESCHERICHIA COLI A 2 0-29,000 col/mL code = 1095) Escherichia col i Amikacin (test code = S 1) Ampicillin + Sulbactam I (test code = 6) Aztreonam (test code = S 32) Cefazolin (test code = S 9) Cefepime (test code = S 51) Cefoxitin (test code = S 68) Ceftazidime (test code S = 27) Ceftriaxone (test code S = 52) Ertapenem (test code = S 38) Gentamicin (test code S = 18) Levofloxacin (test S code = 22) Meropenem (test code = S 34) Nitrofurantoin (test S code = 23) Piperacillin + S Tazobactam (test code = 29) Tetracycline (test R code = 2) Tigecycline (test code S = 133) Tobramycin (test code S = 25) Trimethoprim + R Sulfamethoxazole (test code = 47) <10,000 col/mL skin floraHEPATIC FUNCTION [id number] 06:05:00 Test Item Value Reference Range Interpretation Comments TOTAL PROTEIN ([facility]) (test code = 7.1 gm/dL 6.0-8.5 770) ALBUMIN ([facility]) (test code = 1145) 3.9 g/dL 3.5-5.0 BILIRUBIN TOTAL (AKER) (test code 0.4 mg/dL 0.1-1.2 = 377) BILIRUBIN DIRECT ([facility]) (test 0.2 mg/dL 0.0-0.4 code = 706) ALKALINE PHOSPHATASE ([facility]) (test 98 U/L 30-115 code = 346) AST (SGOT) (BEAKER) (test code = 19 U/L 5-40 353) ALT (SGPT) ([facility]) (test code = 36 U/L 5-50 347) [id number] 05:47:00 Test Item Value Reference Range Interpretation Comments PROTIME (AKER) (test code = 759) 11.8 sec 9.3-12.0 INR (BEAKER) (test code = 370) 1.1 <=5.9 PARTIAL THROMBOPLASTIN TIME (BEAKER) 35.0 sec 23.0-35.0 (test code = 760) RECOMMENDED COUMADIN/WARFARIN INR THERAPY RANGESSTANDARD DOSE: 2.0 - 3.0 Includes: PROPHYLAXIS forvenous thrombosis, systemic embolization; TREATMENT for venous thrombosis and/or pulmonary embolus.HIGH RISK: Target INR is 2.5-3.5 for patients with mechanical heart valves.Final Information (Auto Output)Final Information (Auto Output)Final Information (Auto Output)PROTHROMBIN TIME/INR 2018-12-13 05:47:00 Test Item Value Reference Range Interpretation Comments PROTIME (BEAKER) (test code = 11.8 seconds 9.3-12.0 759) INR (BEAKER) (test code = 370) 1.1 <=5.9 RECOMMENDED COUMADIN/WARFARIN INR THERAPY RANGESSTANDARD DOSE: 2.0 - 3.0 Includes: PROPHYLAXIS forvenous thrombosis, systemic embolization; TREATMENT for venous thrombosis and/or pulmonary embolus.HIGH RISK: Target INR is 2.5-3.5 for patients with mechanical heart valves.BASIC METABOLIC [id number] 05:46:00 Test Item Value Reference Range Interpretation Comments SODIUM (BEAKER) 133 meq/L 135-148 L (test code = 381) POTASSIUM (BEAKER) 4.0 meq/L 3.6-5.5 (test code = 379) CHLORIDE (BEAKER) 103 meq/L 98-106 (test code = 382) CO2 (BEAKER) (test 22 meq/L 20-29 code = 355) BLOOD UREA NITROGEN 14 mg/dL 10-26 (BEAKER) (test code = 354) CREATININE (BEAKER) 0.71 mg/dL 0.50-1.20 (test code = 358) GLUCOSE RANDOM 100 mg/dL 70-110 (BEAKER) (test code = 652) CALCIUM (BEAKER) 9.3 mg/dL 8.5-10.5 (test code = 697) EGFR (BEAKER) (test 99 mL/min/1.73 ESTIMA KIMBERLY GFR IS code = 1092) sq m NOT ACCURATE CREATININE CLEARANCE IN PREDICTING GLOMERULAR FILTRATION RATE . ESTIMATED GFR I S NOT APPLICABLE FOR DIALYSIS PATIEN TS. [id number] 05:43:00 Test Item Value Reference Range Interpretation Comments PHOSPHORUS (BEAKER) (test code = 2.6 mg/dL 2.5-4.5 604) [id number] 05:38:00 Test Item Value Reference Range Interpretation Comments MAGNESIUM (BEAKER) (test code = 2.0 mg/dL 1.5-3.0 627) CBC W/PLT COUNT & AUTO [id number] 05:30:00 Test Item Value Reference Range Interpretation Comments WHITE BLOOD CELL COUNT (BEAKER) 11.0 K/ L 4.0-10.0 H (test code = 775) RED BLOOD CELL COUNT (BEAKER) 4.74 M/ L 4.00-5.00 (test code = 761) HEMOGLOBIN (BEAKER) (test code = 13.3 GM/DL 12.0-15.5 410) HEMATOCRIT (BEAKER) (test code = 42.9 % 36.0-46.0 411) MEAN CORPUSCULAR VOLUME (BEAKER) 90.5 fL 82.0-99.0 (test code = 753) MEAN CORPUSCULAR HEMOGLOBIN 28.1 pg 27.0-33.0 (BEAKER) (test code = 751) MEAN CORPUSCULAR HEMOGLOBIN CONC 31.0 GM/DL 32.0-36.0 L (BEAKER) (test code = 752) RED CELL DISTRIBUTION WIDTH 13.8 % 12.0-15.0 (BEAKER) (test code = 412) PLATELET COUNT (BEAKER) (test 183 K/CU MM 150-430 code = 756) MEAN PLATELET VOLUME (BEAKER) 11.7 fL 6.0-11.5 H (test code = 754) NUCLEATED RED BLOOD CELLS 0 /100 WBC 0-0 (BEAKER) (test code = 413) NEUTROPHILS RELATIVE PERCENT 68 % (BEAKER) (test code = 429) LYMPHOCYTES RELATIVE PERCENT 23 % (BEAKER) (test code = 430) MONOCYTES RELATIVE PERCENT 8 % (BEAKER) (test code = 431) EOSINOPHILS RELATIVE PERCENT 0 % (BEAKER) (test code = 432) BASOPHILS RELATIVE PERCENT 0 % (BEAKER) (test code = 437) NEUTROPHILS ABSOLUTE COUNT 7.52 K/ L 1.80-8.00 (BEAKER) (test code = 670) LYMPHOCYTES ABSOLUTE COUNT 2.53 K/ L 1.48-4.50 (BEAKER) (test code = 414) MONOCYTES ABSOLUTE COUNT (BEAKER) 0.88 K/ L 0.00-1.30 (test code = 415) EOSINOPHILS ABSOLUTE COUNT 0.01 K/ L 0.00-0.50 (BEAKER) (test code = 416) BASOPHILS ABSOLUTE COUNT (BEAKER) 0.01 K/ L 0.00-0.20 (test code = 417) IMMATURE GRANULOCYTES-RELATIVE 1 % 0-0 H PERCENT (BEAKER) (test code = 2801) CALCIUM, [id number] 05:06:00 Test Item Value Reference Range Interpretation Comments CALCIUM IONIZED (BEAKER) (test 1.18 mmol/L 1.12-1.27 code = 698) PH, BLOOD (BEAKER) (test code = 7.45 1810) [id number] 05:21:00 Test Item Value Reference Range Interpretation Comments PHOSPHORUS (BEAKER) (test code = 1.8 mg/dL 2.5-4.5 L 604) CALCIUM, [id number] 05:20:00 Test Item Value Reference Range Interpretation Comments CALCIUM IONIZED (BEAKER) (test 0.92 mmol/L 1.12-1.27 L code = 698) PH, BLOOD (BEAKER) (test code = 7.42 1810) BASIC METABOLIC [id number] 05:18:00 Test Item Value Reference Range Interpretation Comments SODIUM (BEAKER) 145 meq/L 135-148 (test code = 381) POTASSIUM (BEAKER) 2.7 meq/L 3.6-5.5 L (test code = 379) CHLORIDE (BEAKER) 124 meq/L 98-106 H (test code = 382) CO2 (BEAKER) (test 16 meq/L 20-29 L code = 355) BLOOD UREA NITROGEN 12 mg/dL 10-26 (BEAKER) (test code = 354) CREATININE (BEAKER) 0.48 mg/dL 0.50-1.20 L (test code = 358) GLUCOSE RANDOM 100 mg/dL 70-110 (BEAKER) (test code = 652) CALCIUM (BEAKER) 6.1 mg/dL 8.5-10.5 L (test code = 697) EGFR (BEAKER) (test 155 mL/min/1.73 ESTIM ATED GFR IS code = 1092) sq m NOT ACCURATE CREATININE CLEARANCE IN PREDICTING GLOMERULAR FILTRATION RATE . ESTIMATED GFR I S NOT APPLICABLE FOR DIALYSIS PATIEN TS. HEPATIC FUNCTION [id number] 05:16:00 Test Item Value Reference Range Interpretation Comments TOTAL PROTEIN (BEAKER) (test code = 4.3 gm/dL 6.0-8.5 L 770) ALBUMIN (BEAKER) (test code = 1145) 2.5 g/dL 3.5-5.0 L BILIRUBIN TOTAL (BEAKER) (test code < mg/dL 0.1-1.2 = 377) BILIRUBIN DIRECT (BEAKER) (test 0.1 mg/dL 0.0-0.4 code = 706) ALKALINE PHOSPHATASE (BEAKER) (test 65 U/L 30-115 code = 346) AST (SGOT) (BEAKER) (test code = 15 U/L 5-40 353) ALT (SGPT) (BEAKER) (test code = 28 U/L 5-50 347) [id number] 05:09:00 Test Item Value Reference Range Interpretation Comments PROTIME (BEAKER) (test code = 759) 13.1 sec 9.3-12.0 H INR (BEAKER) (test code = 370) 1.2 <=5.9 PARTIAL THROMBOPLASTIN TIME (BEAKER) 36.7 sec 23.0-35.0 H (test code = 760) RECOMMENDED COUMADIN/WARFARIN INR THERAPY RANGESSTANDARD DOSE: 2.0 - 3.0 Includes: PROPHYLAXIS forvenous thrombosis, systemic embolization; TREATMENT for venous thrombosis and/or pulmonary embolus.HIGH RISK: Target INR is 2.5-3.5 for patients with mechanical heart valves.Final Information (Auto Output)Final Information (Auto Output)Final Information (Auto Output)PROTHROMBIN TIME/INR 2018-12-12 05:09:00 Test Item Value Reference Range Interpretation Comments PROTIME (BEAKER) (test code = 13.1 seconds 9.3-12.0 H 759) INR (BEAKER) (test code = 370) 1.2 <=5.9 RECOMMENDED COUMADIN/WARFARIN INR THERAPY RANGESSTANDARD DOSE: 2.0 - 3.0 Includes: PROPHYLAXIS forvenous thrombosis, systemic embolization; TREATMENT for venous thrombosis and/or pulmonary embolus.HIGH RISK: Target INR is 2.5-3.5 for patients with mechanical heart valves.[id number] 05:07:00 Test Item Value Reference Range Interpretation Comments MAGNESIUM (MILTON) (test code = 1.2 mg/dL 1.5-3.0 L 627) TROPONIN [id number] 15:48:00 Test Item Value Reference Range Interpretation Comments TROPONIN I (MILTON) (test code = 397) < ng/mL 0.00-0.15 Troponin I (TnI) levels [...] acidosis, acute neurological disease, and persistent tachyarrhythmia.HEMOGLOBIN [id number] 10:08:00 Test Item Value Reference Range Interpretation Comments HEMOGLOBIN A1C (MILTON) (test code = 6.1 % 4.3-6.1 368) CT, CHEST WITH IV CONTRAST- PE TEST [id number] 09:48:00FINAL REPORT CT of the chest, pulmonary embolism protocol Clinical History:Chest pain, acute, PE suspected, intermed prob, positive D-dimer Technique: Precontrast axial images at the level of the pulmonary outflow tract are obtained for the purpose of contrast bolus tracking. Postcontrast axial images of the chest are subsequently obtained with optimal pulmonary arterial en hancement followed by delayed postcontrast images. Coronal 2D reformatted images are reviewed. Thisexam was performed according to our departmental dose optimization program which includes automated exposure control, adjustment of the mA and/or kV according to patient's size and/or use of iterative r econstructive technique. Comparison Film: None Discussion: No filling [...] Finch Verified Date/Time: 12/11/2018 09:48:10 Reading Location: [facility] B1 C013X Ortho Consult Reading Room RAD, CHEST, 1 VIEW, NON DEPT 2018-12-11 09:10:00Reason for exam:->PULM EDEMAShould this be performed at the bedside?->YesFINAL REPORT Clinical History: PULM EDEMA Comparison Study: None Findings: The heart and lungs are within normal limits. The pleural spaces are clear. No significant bony or soft tissue abnormalities are seen. Impression: No active cardiopulmonary disease. Signed: David Rodriguez Verified Date/Time: 12/11/2018 09:10:32 Reading Location: [facility] Radiology Reading Room COMPREHENSIVE METABOLIC PANEL 2018-12-11 07:24:00 Test Item Value Reference Range Interpretation Comments TOTAL PROTEIN 6.4 gm/dL 6.0-8.5 (BEAKER) (test code = 770) ALBUMIN (BEAKER) 3.6 g/dL 3.5-5.0 (test code = 1145) ALKALINE PHOSPHATASE 97 U/L 30-115 (BEAKER) (test code = 346) BILIRUBIN TOTAL 0.4 mg/dL 0.1-1.2 (BEAKER) (test code = 377) SODIUM (BEAKER) (test 139 meq/L 135-148 code = 381) POTASSIUM (BEAKER) 3.7 meq/L 3.6-5.5 (test code = 379) CHLORIDE (BEAKER) 108 meq/L 98-106 H (test code = 382) CO2 (BEAKER) (test 24 meq/L 20-29 code = 355) BLOOD UREA NITROGEN 18 mg/dL 10-26 (BEAKER) (test code = 354) CREATININE (BEAKER) 0.78 mg/dL 0.50-1.20 (test code = 358) GLUCOSE RANDOM 105 mg/dL 70-110 (BEAKER) (test code = 652) CALCIUM (BEAKER) 8.5 mg/dL 8.5-10.5 (test code = 697) AST (SGOT) (BEAKER) 24 U/L 5-40 (test code = 353) ALT (SGPT) (BEAKER) 43 U/L 5-50 (test code = 347) EGFR (BEAKER) (test 89 mL/min/1.73 ESTIMA KIMBERLY GFR IS code = 1092) sq m NOT ACCURATE CREATININE CLEARANCE IN PREDICTING GLOMERULAR FILTRATION RATE . ESTIMATED GFR I S NOT APPLICABLE FOR DIALYSIS PATIEN TS. TROPONIN [id number] 07:24:00 Test Item Value Reference Range Interpretation Comments TROPONIN I (BEAKER) (test code = 397) < ng/mL 0.00-0.15 Troponin I (TnI) levels [...] acidosis, acute neurological disease, and persistent tachyarrhythmia.LIPID [id number] 07:23:00 Test Item Value Reference Range Interpretation Comments TRIGLYCERIDES (BEAKER) (test code = 95 mg/dL 540) CHOLESTEROL (BEAKER) (test code = 180 mg/dL 631) HDL CHOLESTEROL (BEAKER) (test code 50 mg/dL = 976) LDL CHOLESTEROL CALCULATED (BEAKER) 111 mg/dL (test code = 633) Triglyceride Reference Range: Low Risk <150 Borderline 150-199 High Risk 200-499 Very High Risk >=500Cholesterol Reference Range: Low Risk <200 Borderline 200-239 High Risk >240HDL Cholesterol Reference Range: Low Risk >=60 High Risk <40LDL Cholesterol Reference Range: Optimal <100 Near Optimal 100-129 Borderline 130-159 High 160-189 Very High [id number] 07:15:00 Test Item Value Reference Range Interpretation Comments MAGNESIUM (BEAKER) (test code = 2.0 mg/dL 1.5-3.0 627) CBC W/PLT COUNT & AUTO [id number] 07:00:00 Test Item Value Reference Range Interpretation Comments WHITE BLOOD CELL COUNT (BEAKER) 6.7 K/ L 4.0-10.0 (test code = 775) RED BLOOD CELL COUNT (BEAKER) 4.33 M/ L 4.00-5.00 (test code = 761) HEMOGLOBIN (BEAKER) (test code = 12.3 GM/DL 12.0-15.5 410) HEMATOCRIT (BEAKER) (test code = 39.9 % 36.0-46.0 411) MEAN CORPUSCULAR VOLUME (BEAKER) 92.1 fL 82.0-99.0 (test code = 753) MEAN CORPUSCULAR HEMOGLOBIN 28.4 pg 27.0-33.0 (BEAKER) (test code = 751) MEAN CORPUSCULAR HEMOGLOBIN CONC 30.8 GM/DL 32.0-36.0 L (BEAKER) (test code = 752) RED CELL DISTRIBUTION WIDTH 13.8 % 12.0-15.0 (BEAKER) (test code = 412) PLATELET COUNT (BEAKER) (test 164 K/CU MM 150-430 code = 756) MEAN PLATELET VOLUME (BEAKER) 11.2 fL 6.0-11.5 (test code = 754) NUCLEATED RED BLOOD CELLS 0 /100 WBC 0-0 (BEAKER) (test code = 413) NEUTROPHILS RELATIVE PERCENT 59 % (BEAKER) (test code = 429) LYMPHOCYTES RELATIVE PERCENT 32 % (BEAKER) (test code = 430) MONOCYTES RELATIVE PERCENT 8 % (BEAKER) (test code = 431) EOSINOPHILS RELATIVE PERCENT 1 % (BEAKER) (test code = 432) BASOPHILS RELATIVE PERCENT 0 % (BEAKER) (test code = 437) NEUTROPHILS ABSOLUTE COUNT 3.95 K/ L 1.80-8.00 (BEAKER) (test code = 670) LYMPHOCYTES ABSOLUTE COUNT 2.11 K/ L 1.48-4.50 (BEAKER) (test code = 414) MONOCYTES ABSOLUTE COUNT (BEAKER) 0.54 K/ L 0.00-1.30 (test code = 415) EOSINOPHILS ABSOLUTE COUNT 0.06 K/ L 0.00-0.50 (BEAKER) (test code = 416) BASOPHILS ABSOLUTE COUNT (BEAKER) 0.02 K/ L 0.00-0.20 (test code = 417) IMMATURE GRANULOCYTES-RELATIVE 0 % 0-0 PERCENT (BEAKER) (test code = 2801)
[2020-08-03 11:41] LABS: ALT/SGPT 29 U/L (12-78); AST/SGOT 21 U/L (15-37); Albumin 3.7 g/dL (3.4-5.0); Alkaline Phosphatase 95 U/L (45-117); BUN Blood Urea Nitrogen 20 mg/dL (7-18); Bicarbonate 27 mmol/L (21-32); Bilirubin Direct 0.1 mg/dL (0-0.2); Bilirubin Total 0.3 mg/dL (0.2-1.0); Glucose Level 101 mg/dL (74-106); Lipase 102 U/L (73-393); Magnesium 1.9 mg/dL (1.8-2.4); NT PRO-BNP 59 pg/mL (<125); Potassium 3.6 mmol/L (3.5-5.1); Protein, Total 7.5 g/dL (6.4-8.2); Sodium Level 142 mmol/L (136-145); Troponin (Emerg Dept Use Only) < 0.02 ng/mL (0.0-0.045)
--- NOTE | 2020-08-03 12:06 | EDPHYS ---
Physician Documentation [facility] Name: Cole Cadena Age: 69 yrs Sex: Female : 1950 Arrival Date: 08/03/2020 Time: 10:50 Bed 18 Private MD: ED Physician Fabian Arriaza HPI: 08/03 11:55 This 69 yrs old Black Female presents to ER via Ambulatory with complaints of Chest abbe Pain. 11:55 The patient or guardian reports chest pain that is located primarily in the substernal abbe area. Onset: last night. The pain does not radiate. Associated signs and symptoms: Pertinent positives: lightheadedness, shortness of breath. The chest pain is described as a heaviness, a pressure. Duration: The patient or guardian reports a single episode, that is still ongoing. Modifying factors: The symptoms are alleviated by nothing. the symptoms are aggravated by nothing. Severity of pain: At its worst the pain was mild moderate in the emergency department the pain is unchanged. The patient has experienced similar episodes in the past, several times. Historical: - Allergies: 11:06 Tramadol HCl; iw - PMHx: 11:06 Anxiety; Asthma; Depression; GERD; Hypertension; iw - PSHx: 11:06 Heart stents; iw - Immunization history:: Adult Immunizations not up to date. - Social history:: Smoking status: Patient denies any tobacco usage or history of. - Family history:: not pertinent. ROS: 11:55 Constitutional: Negative for fever, chills, and weight loss, Eyes: Negative for injury, abbe pain, redness, and discharge, ENT: Negative for injury, pain, and discharge, Neck: Negative for injury, pain, and swelling, Abdomen/GI: Negative for abdominal pain, nausea, vomiting, diarrhea, and constipation, Back: Negative for injury and pain, : Negative for injury, bleeding, discharge, and swelling, MS/Extremity: Negative for injury and deformity, Skin: Negative for injury, rash, and discoloration, Neuro: Negative for headache, weakness, numbness, tingling, and seizure, Psych: Negative for depression, anxiety, suicide ideation, homicidal ideation, and hallucinations, Allergy/Immunology: Negative for hives, rash, and allergies, Endocrine: Negative for neck swelling, polydipsia, polyuria, polyphagia, and marked weight changes, Hematologic/Lymphatic: Negative for swollen nodes, abnormal bleeding, and unusual bruising. 11:55 Cardiovascular: Positive for chest pain, of the chest. 11:55 Respiratory: Positive for shortness of breath, at rest. Exam: 11:55 Constitutional: This is a well developed, well nourished patient who is awake, alert, abbe and in no acute distress. Head/Face: Normocephalic, atraumatic. Eyes: Pupils equal round and reactive to light, extra-ocular motions intact. Lids and lashes normal. Conjunctiva and sclera are non-icteric and not injected. Cornea within normal limits. Periorbital areas with no swelling, redness, or edema. ENT: Nares patent. No nasal discharge, no septal abnormalities noted. Tympanic membranes are normal and external auditory canals are clear. Oropharynx with no redness, swelling, or masses, exudates, or evidence of obstruction, uvula midline. Mucous membranes moist. Neck: Trachea midline, no thyromegaly or masses palpated, and no cervical lymphadenopathy. Supple, full range of motion without nuchal rigidity, or vertebral point tenderness. No Meningismus. Chest/axilla: Normal chest wall appearance and motion. Nontender with no deformity. No lesions are appreciated. Cardiovascular: Regular rate and rhythm with a normal S1 and S2. No gallops, murmurs, or rubs. Normal PMI, no JVD. No pulse deficits. Respiratory: Lungs have equal breath sounds bilaterally, clear to auscultation and percussion. No rales, rhonchi or wheezes noted. No increased work of breathing, no retractions or nasal flaring. Abdomen/GI: Soft, non-tender, with normal bowel sounds. No distension or tympany. No guarding or rebound. No evidence of tenderness throughout. Back: No spinal tenderness. No costovertebral tenderness. Full range of motion. Female : Normal external genitalia. Skin: Warm, dry with normal turgor. Normal color with no rashes, no lesions, and no evidence of cellulitis. MS/ Extremity: Pulses equal, no cyanosis. Neurovascular intact. Full, normal range of motion. Neuro: Awake and alert, GCS 15, oriented to person, place, time, and situation. Cranial nerves II-XII grossly intact. Motor strength 5/5 in all extremities. Sensory grossly intact. Cerebellar exam normal. Normal gait. Psych: Awake, alert, with orientation to person, place and time. Behavior, mood, and affect are within normal limits. 11:58 Musculoskeletal/extremity: DVT Exam: No signs of deep vein thrombosis. no pain, no abbe swelling, no tenderness, negative Homans' sign noted on exam, no appreciated bluish discoloration, no erythema, no increased warmth. 12:10 ECG was reviewed by the Attending Physician. abbe Vital Signs: 11:03 BP 128 / 99; Pulse 75; Resp 18 S; Temp 98.1; Pulse Ox 99% on R/A; Weight 91.63 kg; iw Height 5 ft. 2 in. (157.48 cm); Pain 8/10; 11:54 BP 177 / 85; Pulse 72; Resp 17; Pulse Ox 99% on R/A; mh5 12:36 BP 177 / 98; Pulse 69; Resp 18; Pulse Ox 99% on R/A; tw2 13:30 BP 156 / 77; Pulse 62; Resp 17; Pulse Ox 97% on R/A; ca1 14:05 BP 150 / 80; Pulse 53; Resp 17; Pulse Ox 98% on R/A; tw2 11:03 Body Mass Index 36.95 (91.63 kg, 157.48 cm) iw MDM: 10:58 Patient medically screened. abbe 11:58 Differential diagnosis: abnormal EKG, acute myocardial infarction, coronary artery abbe disease cholecystitis, Cholelithiasis esophagitis, hiatal hernia, pancreatitis, peptic ulcer disease, pulmonary embolus, stable angina, unstable angina. HEART Score: History: Moderately Suspicious (1), ECG: Non specific repolarization disturbance / LBTB / PM (1). The patient was given aspirin in the Emergency Department. The patient's deep vein thrombosis risk score was calculated as follows: Total Score: 0. This patient was found to be at low risk for a deep vein thrombosis by using the Well's assessment criteria. The patient's pulmonary embolism risk score was calculated as follows: Total Score: 0-2 points. This patient was found to be at low risk for a pulmonary embolism by using the Well's assessment criteria. JACQUELIN Risk Score: 1 - patient's age is greater or equal to 65 years, 1 - Three or more CAD risk factors, 1- Known CAD, 1 - ASA use in past 7 days, 1 - Recent [<24hrs] Severe Angina. Data reviewed: vital signs, nurses notes, EMS record, lab test result(s), EKG, radiologic studies, plain films. Data interpreted: athletic monitor: rate is 72 beats/min, rhythm is regular, Pulse oximetry: on room air is 99 %. Test interpretation: by ED physician or midlevel provider: ECG, plain radiologic studies. Counseling: I had a detailed discussion with the patient and/or guardian regarding: the historical points, exam findings, and any diagnostic results supporting the discharge/admit diagnosis, the presence of at least one elevated blood pressure reading (>120/80) during this emergency department visit, lab results, the need for further work-up and treatment in the hospital. 08/03 11:01 Order name: Basic Metabolic Panel [facility] 08/03 11:01 Order name: CBC with Diff [facility] 08/03 11:01 Order name: LFT's [facility] 08/03 11:01 Order name: Magnesium [facility] 08/03 11:01 Order name: NT PRO-BNP [facility] 08/03 11:01 Order name: PT-INR [facility] 08/03 11:01 Order name: Troponin (emerg Dept Use Only) [facility] 08/03 11:01 Order name: Lipase [facility] 08/03 11:26 Order name: Protime (+INR); Complete Time: 12:01 [facility] 08/03 11:28 Order name: CBC with Automated Diff; Complete Time: 12: [facility] 08/03 11:42 Order name: Basic Metabolic Panel; Complete Time: 12: [facility] 08/03 11:42 Order name: Liver (Hepatic) Function; Complete Time: 12: [facility] 08/03 11:42 Order name: Troponin (Emerg Dept Use Only); Complete Time: 12:01 [facility] 08/03 11:42 Order name: NT PRO-BNP; Complete Time: 12:01 [facility] 08/03 11:01 Order name: XRAY Chest (1 view) [facility] 08/03 11:01 Order name: EKG; Complete Time: 11:08/03 11:01 Order name: Cardiac monitoring; Complete Time: 11:08 [facility] 08/03 11:01 Order name: EKG - Nurse/Tech; Complete Time: 11:08/03 11:01 Order name: IV Saline Lock; Complete Time: 11: [facility] 08/03 11:01 Order name: Labs collected and sent; Complete Time: : [facility] 08/03 11:01 Order name: O2 Per Protocol; Complete Time: [facility] 08/03 11:01 Order name: O2 Sat Monitoring; Complete Time: 11: [facility] 08/03 11:42 Order name: Magnesium; Complete Time: 12:01 [facility] 08/03 11:42 Order name: Lipase; Complete Time: 12: [facility] 08/03 12:40 Order name: RAD; Complete Time: 13:00 [facility] EC:10 Rate is 74 beats/min. Rhythm is regular. QRS [place] is Normal. OR interval is normal. QRS abbe interval is normal. QT interval is prolonged at 477 msec. No Q waves. T waves are Normal. No ST changes noted. Clinical impression: NSR w/ Non-specific ST/T Changes. Interpreted by me. Reviewed by me. Administered Medications: Discontinued: NS 0.9% 1000 ml IV at 125 ml/hr continuous 11:20 Drug: NS 0.9% 1000 ml Route: IV; Rate: 125 ml/hr; Site: right antecubital; tw2 12:35 Follow up: Rate change 125 ml/hr; IV Status: Infusion continued; new IV established tw2 11:20 Drug: Aspirin 162 mg Route: PO; tw2 12:35 Follow up: Response: No adverse reaction tw2 12:22 Drug: Lovenox 1 mg/kg Route: Sub-Q; Site: right lower abdomen; tw2 12:35 Follow up: Response: No adverse reaction tw2 12:23 Drug: Lopressor (metoprolol TARTRATE) 50 mg Route: PO; tw2 12:35 Follow up: Response: No adverse reaction tw2 12:23 Drug: Pepcid 20 mg Route: IVP; Site: left antecubital; tw2 12:35 Follow up: Response: No adverse reaction tw2 Disposition: 08/03/20 12:05 Hospitalization ordered by Michael Richmond for Observation. Preliminary diagnosis are Angina pectoris, Dyspnea, Essential (primary) hypertension. - Bed requested for Telemetry/MedSurg (observation). - Status is Observation. tw2 - Condition is Stable. - Problem is new. - Symptoms have improved. Signatures: Dispatcher [employer] Reyna Gandhi, RN RN Fabian Sy MD MD cha Williams, Irene, RN RN iw Lurdes Garcia RN RN tw2 Corrections: (The following items were deleted from the chart) 12:07 12:05 Hospitalization Ordered by Michael Richmond DO for Observation. Preliminary abbe diagnosis is Angina pectoris; Dyspnea. Bed requested for Telemetry/MedSurg (observation). Status is Observation. Condition is Stable. Problem is new. Symptoms have improved. abbe 13:41 12:07 08/03/2020 12:05 Hospitalization Ordered by Michael Richmond DO for Observation. dw Preliminary diagnosis is Angina pectoris; Dyspnea; Essential (primary) hypertension. Bed requested for Telemetry/MedSurg (observation). Status is Observation. Condition is Stable. Problem is new. Symptoms have improved. abbe 14:15 13:41 08/03/2020 12:05 Hospitalization Ordered by Michael Richmond DO for Observation. tw2 Preliminary diagnosis is Angina pectoris; Dyspnea; Essential (primary) hypertension. Bed requested for Telemetry/MedSurg (observation). Status is Observation. Condition is Stable. Problem is new. Symptoms have improved. dw
--- NOTE | 2020-08-03 12:06 | ER ---
Nurse's Notes [facility] Name: Cole Cadena Age: 69 yrs Sex: Female : 1950 Arrival Date: 08/03/2020 Time: 10:50 Bed 18 Private MD: Diagnosis: Angina pectoris;Dyspnea;Essential (primary) hypertension Presentation: 08/03 11:03 Chief complaint: Patient states: left sided chest pain since last night. constant, also iw has SOb on exertion and cough, no fever, hx of heart stents. Coronavirus screen: At this time, the client does not indicate any symptoms associated with coronavirus-19. Ebola Screen: Patient negative for fever greater than or equal to 101.5 degrees Fahrenheit, and additional compatible Ebola Virus Disease symptoms Patient denies exposure to infectious person. Patient denies travel to an Ebola-affected area in the 21 days before illness onset. No symptoms or risks identified at this time. Initial Sepsis Screen: Does the patient meet any 2 criteria? No. Patient's initial sepsis screen is negative. Does the patient have a suspected source of infection? No. Patient's initial sepsis screen is negative. Risk Assessment: Do you want to hurt yourself or someone else? Patient reports no desire to harm self or others. Onset of symptoms was August 02, 2020. 11:03 Method Of Arrival: Ambulatory iw 11:03 Acuity: DYLAN 2 iw Historical: - Allergies: 11:06 Tramadol HCl; iw - PMHx: 11:06 Anxiety; Asthma; Depression; GERD; Hypertension; iw - PSHx: 11:06 Heart stents; iw - Immunization history:: Adult Immunizations not up to date. - Social history:: Smoking status: Patient denies any tobacco usage or history of. - Family history:: not pertinent. Screenin:08 Abuse screen: Denies threats or abuse. Nutritional screening: No deficits noted. tw2 Tuberculosis screening: No symptoms or risk factors identified. Fall Risk None identified. Assessment: 10:50 General: Appears in no apparent distress. obese, well groomed, Behavior is calm, tw2 cooperative, appropriate for age. Pain: Complains of pain in chest Pain does not radiate. Pain began 1 day ago. 11:26 Neuro: Level of Consciousness is awake, alert, obeys commands, Oriented to person, tw2 place, time, situation. Cardiovascular: Reports chest pain, syncope, Heart tones S1 S2 Patient's skin is warm and dry. Respiratory: Airway is patent Respiratory effort is even, unlabored, Respiratory pattern is regular, symmetrical, Breath sounds are clear bilaterally. GI: No signs and/or symptoms were reported involving the gastrointestinal system. Abdomen is round non-distended, obese, Bowel sounds present X 4 quads. : No signs and/or symptoms were reported regarding the genitourinary system. EENT: No signs and/or symptoms were reported regarding the EENT system. Derm: No signs and/or symptoms reported regarding the dermatologic system. Musculoskeletal: Circulation, motion, and sensation intact. Range of motion: intact in all extremities. 12:36 Reassessment: Patient appears in no apparent distress at this time. No changes from tw2 previously documented assessment. Patient and/or family updated on plan of care and expected duration. Pain level reassessed. Patient is alert, oriented x 3, equal unlabored respirations, skin warm/dry/pink. 13:30 Reassessment: Patient appears in no apparent distress at this time. No changes from ca1 previously documented assessment. Patient and/or family updated on plan of care and expected duration. Pain level reassessed. Patient is alert, oriented x 3, equal unlabored respirations, skin warm/dry/pink. 14:06 Reassessment: Patient appears in no apparent distress at this time. No changes from tw2 previously documented assessment. Patient and/or family updated on plan of care and expected duration. Pain level reassessed. Patient is alert, oriented x 3, equal unlabored respirations, skin warm/dry/pink. Vital Signs: 11:03 BP 128 / 99; Pulse 75; Resp 18 S; Temp 98.1; Pulse Ox 99% on R/A; Weight 91.63 kg; iw Height 5 ft. 2 in. (157.48 cm); Pain 8/10; 11:54 BP 177 / 85; Pulse 72; Resp 17; Pulse Ox 99% on R/A; mh5 12:36 BP 177 / 98; Pulse 69; Resp 18; Pulse Ox 99% on R/A; tw2 13:30 BP 156 / 77; Pulse 62; Resp 17; Pulse Ox 97% on R/A; ca1 14:05 BP 150 / 80; Pulse 53; Resp 17; Pulse Ox 98% on R/A; tw2 11:03 Body Mass Index 36.95 (91.63 kg, 157.48 cm) ED Course: 10:50 Patient arrived in ED. iw 10:51 Lurdes Garcia RN is Primary Nurse. tw2 10:57 Arm band placed on. EKG completed in triage. Results shown to MD. tw2 10:57 Placed in gown. Bed in low position. Side rails up X 1. monitoring engineer on. Pulse ox tw2 on. NIBP on. Notified ED physician of. 10:58 Fabian Arriaza MD is Attending Physician. abbe 11:05 Triage completed. iw 11:09 Patient maintains SpO2 saturation greater than 95% on room air. tw2 11:10 Basic Metabolic Panel Sent. 5 11:10 Lipase Sent. [facility] 11:10 CBC with Diff Sent. [facility] 11:10 LFT's Sent. [facility] 11:10 Magnesium Sent. [facility] 11:10 NT PRO-BNP Sent. [facility] 11:10 PT-INR Sent. [facility] 11:10 Troponin (emerg Dept Use Only) Sent. [facility] 11:11 Initial lab(s) drawn, by ri, sent to lab. EKG done, by ED staff, reviewed by Fabian Arriaza MD. Inserted saline lock: 22 gauge in right antecubital area, using aseptic technique. Blood collected. 11:12 Patient has correct armband on for positive identification. Call light in reach. Warm [facility] blanket given. 12:03 Michael Richmond DO is Hospitalizing Provider. abbe 12:23 Inserted saline lock: 20 gauge in left antecubital area, using aseptic technique. tw2 ,using aseptic technique. by ASHA Hutson. 14:04 No provider procedures requiring assistance completed. Patient admitted, IV remains in tw2 place. Administered Medications: Discontinued: NS 0.9% 1000 ml IV at 125 ml/hr continuous 11:20 Drug: NS 0.9% 1000 ml Route: IV; Rate: 125 ml/hr; Site: right antecubital; tw2 12:35 Follow up: Rate change 125 ml/hr; IV Status: Infusion continued; new IV established tw2 11:20 Drug: Aspirin 162 mg Route: PO; tw2 12:35 Follow up: Response: No adverse reaction tw2 12:22 Drug: Lovenox 1 mg/kg Route: Sub-Q; Site: right lower abdomen; tw2 12:35 Follow up: Response: No adverse reaction tw2 12:23 Drug: Lopressor (metoprolol TARTRATE) 50 mg Route: PO; tw2 12:35 Follow up: Response: No adverse reaction tw2 12:23 Drug: Pepcid 20 mg Route: IVP; Site: left antecubital; tw2 12:35 Follow up: Response: No adverse reaction tw2 Intake: Outcome: 12:05 Decision to Hospitalize by Provider. abbe 14:04 Admitted to Med/surg accompanied by tech, via wheelchair, room 223, with chart, Report tw2 called to ASHA Aguilera 14:04 Condition: stable 14:04 Instructed on the need for admit. 14:15 Patient left the ED. tw2 Signatures: Fabian Arriaza MD MD cha Williams, Irene RN RN iw Lurdes Garcia RN RN tw2 [place] [facility] Edilma Renner RN RN ca1 Corrections: (The following items were deleted from the chart) 11:26 10:50 Pain: Complains of pain in chest tw2 tw2
[2020-08-03] MEDS ORDERED: METOPROLOL TAR 50 MG TAB ONE (12:26)
[2020-08-03] MEDS ORDERED: ENOXAPARIN 100 MG/ML SYR SQ ONE (12:27)
[2020-08-03] MEDS ORDERED: FAMOTIDINE 20 MG/2 ML VIAL IV ONE (12:27)
--- NOTE | 2020-08-03 12:37 | RAD REPORT ---
EXAM DESCRIPTION: RAD - Chest Single View - 08/03/2020 11:46 am CLINICAL HISTORY: CHEST PAIN COMPARISON: February 2019 TECHNIQUE: AP portable chest image was obtained 08/03/2020 11:46 am . FINDINGS: Lungs are clear. Heart and vasculature are normal. No measurable pleural effusion and no p neumothorax. No acute bony abnormality seen. No acute aortic findings suspected. IMPRESSION: No acute cardiopulmonary process. No significant change from comparison.
--- NOTE | 2020-08-03 12:59 | P.HP ---
Certification for Inpatient Patient admitted to: Observation With expected LOS: <2 Midnights Patient will require the following post-hospital care: None Practitioner: I am a practitioner with admitting privileges, knowledge of patient current condition, hospital course, and medical plan of care. Services: Services provided to patient in accordance with Admission requirements found in Title 42 Section 412.3 of the Code of Federal Regulations Patient History Date of Service: 08/03/20 Primary Care Provider: Dr. Rangel; Cardiology-Dr. Sharma([facility]) Reason for admission: Chest pain History of Present Illness: 69-year-old female with history of hypertension, hyperlipidemia, CAD with prior stent, asthma, GERD and anxiety. Patient presented with chest pain. She reported having chest pain last night to the center of her chest. The pain was initially dull but then sharp. The pain would come and go. When she woke up this morning she had more pain. Some shortness of breath noted. She denies any nausea, vomiting. The patient admits that since last week she ran out of her blood pressure medications as she had lost some. She tried to get refills on her medication but her PCP only refilled her breathing medication. Due to increasing chest pain and mild shortness of breath the patient came to the ER for further evaluation. In the ER patient evaluated. Blood pressure slightly elevated at 128/99. Heart rate 75, respiratory of 18, patient afebrile. CBC unremarkable. BMP also unremarkable. Initial cardiac enzymes unremarkable. Lipase negative. Magnesium 1.9. Chest x-ray unremarkable. No significant EKG changes noted. Patient admitted for further evaluation and treatment. When I saw the patient ER, she appeared stable. No chest pain noted at that time. Prior echocardiogram done February of 2019 showed normal ejection fraction. She also had a stress test done at that time which was unremarkable showing no stress-induced ischemia. Patient reports it is been a while since she last saw Cardiology. She was to see Cardiology recently but it has been difficult to get this done. Patient not able to provide a list of her medication. Allergies Tramadol HCl Allergy (Intermediate, Uncoded 02/11/19 18:14) headche Home medications list reviewed: Yes Home Medications: ALPRAZolam [Alprazolam] 2 mg PO TID 02/12/19 Aspirin [Aspirin EC 81 MG] 81 mg PO DAILY 02/12/19 Atorvastatin Calcium [Lipitor] 80 mg PO DAILY 02/12/19 Gabapentin [Neurontin*] 100 mg PO BIDP PRN 02/12/19 Hydralazine [Apresoline*] 25 mg PO DAILY 02/12/19 Hydrocodone 7.5/APAP 325 [Garvin 7.5/325 mg*] 1 tab PO BIDP PRN 02/12/19 carvediloL [Coreg*] 25 mg PO BID 02/12/19 hydroCHLOROthiazide [Hydrochlorothiazide*] 12.5 mg PO DAILY 02/12/19 lisinopriL [Lisinopril] 40 mg PO DAILY 02/12/19 - Past Medical/Surgical History Diabetic: No -: Depression with anxiety -: GERD -: Hypertension -: CAD with prior stent -: Hyperlipidemia -: Asthma -: tubal ligation -: Cardiac stent Psychosocial/ Personal History: Patient . She lives by herself. - Family History Family History: Reviewed- Non-Contributory - Social History Smoking Status: Never smoker Alcohol use: No CD- Drugs: No Caffeine use: Yes Place of Residence: Home Review of Systems General: As per HPI Eyes: Unremarkable ENT: Unremarkable Respiratory: Shortness of Breath, As per HPI Cardiovascular: Chest Pain, As per HPI Gastrointestinal: Unremarkable Genitourinary: Unremarkable Musculoskeletal: Unremarkable Integumentary: Unremarkable Neurological: Unremarkable Lymphatics: Unremarkable Physical Examination - Physical Exam General: Alert, In no apparent distress, Oriented x3, Cooperative HEENT: Atraumatic, Normocephalic, PERRLA, Mucous membr. moist/pink Neck: Supple Respiratory: Clear to auscultation bilaterally, Normal air movement Cardiovascular: Normal pulses, Regular rate/rhythm Gastrointestinal: Normal bowel sounds, Soft and benign, Non-distended, No tenderness, No masses, No rebound, No guarding Musculoskeletal: No erythema, No tenderness, No warmth Integumentary: No tenderness/swelling, No erythema, No warmth, No cyanosis Neurological: Normal speech, Normal strength at 5/5 x4 extr, Normal tone, Normal affect - Studies Laboratory Data (last 24 hrs) 08/03/20 11:05: PT 13.0 H, INR 1.10 08/03/20 11:05: WBC 5.2, Hgb 12.6, Hct 37.0, Plt Count 139 L 08/03/20 11:05: Sodium 142, Potassium 3.6, BUN 20 H, Creatinine 0.89, Glucose 101, Magnesium 1.9, Total Bilirubin 0.3, AST 21, ALT 29, Alkaline Phosphatase 95, Lipase 102 Assessment and Plan - Plan Impression: Chest pain with shortness of breath, atypical with history of CAD and prior stent Hypertension uncontrolled Hyperlipidemia GERD Depression with anxiety Asthma Plan: Chest pain with shortness of breath, atypical with history of CAD and prior stent: Patient will be admitted for further evaluation and treatment. Will observe closely. Will monitor telemetry and continue to monitor cardiac enzymes. Will obtain echocardiogram. Prior echocardiogram done in February of 2019 was unremarkable. Prior stress test also done at that time unremarkable. DVT prophylaxis in place. Will provide aspirin, metoprolol, Lipitor. Will consult cardiology for further recommendation. Patient may require inpatient versus outpatient workup. Suspect chest pain likely related to patient running out of her blood pressure medication. Will obtain a list of her medications from pharmacy. Will restart medication and adjust appropriately. Anticipate improvement over the next 24 hr. Likely discharge in the morning pending cardiac evaluation. Hypertension uncontrolled: Prior medications reviewed. Will need to obtain and verify home medications, then restart. Hyperlipidemia: Will check fasting lipid panel. Will start Lipitor. GERD: Will provide medication Depression with anxiety: Will provide medication. Patient reports some anxiety due to recent move out of her home. Asthma: Will provide medication Discharge Plan: Home Plan to discharge in: 24 Hours - Advance Directives Does patient have a Living Will: No Does patient have a Durable POA for Healthcare: No - Code Status/Comfort Care Code Status Assessed: Yes (Patient is full code) Time Spent Managing Pts Care (In Minutes): 55
[2020-08-03] MEDS ORDERED: ALBUTEROL INHALER 60 PUFF/8 GM IH PRN (14:27)
[2020-08-03] MEDS ORDERED: ALPRAZOLAM 0.25 MG TABLET PO PRN (14:27)
[2020-08-03] MEDS ORDERED: ONDANSETRON 4 MG/2 ML VIAL IV PRN (14:27)
[2020-08-03] MEDS ORDERED: ACETAMINOPHEN 500 MG TAB PO PRN (14:27)
[2020-08-03 15:06] VITALS: BMI 37.1
[2020-08-03] MEDS: PANTOPRAZOLE 40MG TABLET PO SCH (15:19)
[2020-08-03] MEDS ORDERED: HYDROCODONE/APAP 7.5/325 MG TAB PO PRN (15:19)
[2020-08-03] MEDS: ENOXAPARIN 40 MG/0.4 ML SQ SCH (15:19)
[2020-08-03] MEDS ORDERED: GABAPENTIN 100 MG CAP PO PRN (15:19)
[2020-08-03] MEDS ORDERED: PNEUMOCOCCAL VACCINE 0.5 ML IMVAC ONE (16:00)
[2020-08-03 16:07] VITALS: O2SAT 97
[2020-08-03] MEDS: AMLODIPINE 5 MG TAB PO SCH (16:16)
[2020-08-03] MEDS ORDERED: METOPROLOL TAR 25 MG TAB PO SCH (18:00)
[2020-08-03 19:41] LABS: CKMB Creatine Kinase MB 2.6 ng/mL (0.3-3.6); Creatine Phosphokinase 366 U/L (26-192); Troponin I < 0.02 ng/mL (0.0-0.045)
[2020-08-03] MEDS: DULERA 100/5 (MOMETASONE/FORMOTEROL) INHALER IH SCH (20:58)
[2020-08-03] MEDS ORDERED: POTASSIUM CL SA 10 MEQ TAB PO ONE (21:00)
[2020-08-03] MEDS ORDERED: carvediloL 6.25 MG TAB PO SCH (21:00)
[2020-08-03] MEDS ORDERED: ATORVASTATIN 40 MG TAB PO SCH (21:00)
[2020-08-04 03:56] LABS: CKMB Creatine Kinase MB 2.4 ng/mL (0.3-3.6); Creatine Phosphokinase 346 U/L (26-192); Troponin I < 0.02 ng/mL (0.0-0.045)
[2020-08-04 04:00] LABS: Potassium 3.8 mmol/L (3.5-5.1); Thyroid Stimulating Hormone 2.34 uIU/mL (0.360-3.740)
[2020-08-04] MEDS: PANTOPRAZOLE 40MG TABLET PO SCH (06:30)
[2020-08-04] MEDS ORDERED: NA CHLORIDE 0.9% 500 ML IV ONE (07:23)
--- NOTE | 2020-08-04 08:08 | P.DS ---
Admission Date: 08/03/20 Discharge Date: 08/04/20 Primary Care Provider: Dr. Rangel; Cardiology-Dr. Sharma([facility]) Disposition: ROUTINE DISCHARGE Discharge Condition: GOOD Reason for Admission: Chest pain Consultations: Cardiology-Dr. Lyle Procedures: COVID test: negative CXR: FINDINGS: Lungs are clear. Heart and vasculature are normal. No measurable pleural effusion and no pneumothorax. No acute bony abnormality seen. No acute aortic findings suspected. IMPRESSION: No acute cardiopulmonary process. No significant change from comparison. Medical Problem List: Chest pain with shortness of breath, atypical with history of CAD and prior stent Hypertension uncontrolled Hyperlipidemia GERD Depression with anxiety Asthma Brief History of Present Illness: 69-year-old female with history of hypertension, hyperlipidemia, CAD with prior stent, asthma, GERD and anxiety. Patient presented with chest pain. She reported having chest pain last night to the center of her chest. The pain was initially dull but then sharp. The pain would come and go. When she woke up this morning she had more pain. Some shortness of breath noted. She denies any nausea, vomiting. The patient admits that since last week she ran out of her blood pressure medications as she had lost some. She tried to get refills on her medication but her PCP only refilled her breathing medication. Due to increasing chest pain and mild shortness of breath the patient came to the ER for further evaluation. In the ER patient evaluated. Blood pressure slightly elevated at 128/99. Heart rate 75, respiratory of 18, patient afebrile. CBC unremarkable. BMP also unremarkable. Initial cardiac enzymes unremarkable. Lipase negative. Magnesium 1.9. Chest x-ray unremarkable. No significant EKG changes noted. Patient admitted for further evaluation and treatment. When I saw the patient ER, she appeared stable. No chest pain noted at that time. Prior echocardiogram done February of 2019 showed normal ejection fraction. She also had a stress test done at that time which was unremarkable showing no stress-induced ischemia. Patient reports it is been a while since she last saw Cardiology. She was to see Cardiology recently but it has been difficult to get this done. Patient not able to provide a list of her medication. Hospital Course: Patient presented with chest pain and mild shortness of breath. Patient with h istory of CAD and prior stent. Symptoms were atypical. The patient was admitted for observation. Cardiac enzymes unremarkable. No significant EKG changes noted. Patient was seen and evaluated by Cardiology. No further cardiac intervention was required during her stay. Patient with history of hypertension. Medications have been adjusted. Patient recently ran out of medication. Will provide refills on medications. At discharge hydralazine has been discontinued. At discharge new medication includes Norvasc. At discharge patient will continue with aspirin 81 mg daily, Norvasc 5 mg daily, carvedilol 25 mg 1 pill twice daily, and hydrochlorothiazide 12.5 mg daily. Recommend to maintain blood pressure less 150/80. Further adjustment can be done by her PCP. Recommend follow up with cardiology within 1 week. Cardiology will make arrangements for outpatient cardiac stress test to further evaluate. Patient with hyperlipidemia. LDL at 100. At discharge patient will continue with Lipitor 80 mg daily. Recommend to recheck fasting lipid panel in 4-6 weeks to monitor progress. Further adjustment in medication or additional medication may be required. This can be addressed by her PCP or cardiology. Lifestyle modification education and heart healthy diet will be provided. Patient with depression with anxiety. Patient takes alprazolam 2 mg 3 times a day. Recommend to wean off medication as medication can be very addictive and increase sedation. This can be done with the help of her PCP. Recommend psychiatric evaluation as an outpatient to further address. Patient with history of asthma. At discharge will provide medication Symbicort 2 puffs twice daily and Pro air 2 puffs 3 times a day as needed for shortness of breath. Patient may follow up with pulmonology as an outpatient to further address. Patient has chronic pain Patient uses gabapentin 100 mg twice daily as needed for pain. Patient also takes hydrocodone. Recommend to wean off hydrocodone with the help of her PCP. Vital Signs/Physical Exam: Temp Pulse Resp BP Pulse Ox 98.9 F 74 16 163/91 H 95 08/04/20 04:00 08/04/20 04:00 08/04/20 04:00 08/04/20 04:00 08/04/20 04:00 General: Alert, In no apparent distress, Oriented x3, Cooperative HEENT: Atraumatic Neck: Supple Respiratory: Clear to auscultation bilaterally, Normal air movement Cardiovascular: Normal pulses, Regular rate/rhythm Gastrointestinal: Normal bowel sounds, Soft and benign, Non-distended, No tenderness, No masses, No rebound, No guarding Musculoskeletal: No erythema, No tenderness, No warmth Integumentary: No tenderness/swelling, No erythema, No warmth, No cyanosis Neurological: Normal speech, Normal strength at 5/5 x4 extr, Normal tone, Normal affect Laboratory Data at Discharge: WBC 5.2 K/uL (4.3-10.9) 08/03/20 11:05 Hgb 12.6 g/dL (12.0-15.0) 08/03/20 11:05 Hct 37.0 % (36.0-45.0) 08/03/20 11:05 Plt Count 139 K/uL (152-406) L 08/03/20 11:05 PT 13.0 SECONDS (9.5-12.5) H 08/03/20 11:05 INR 1.10 08/03/20 11:05 Sodium 143 mmol/L (136-145) 08/04/20 02:54 Potassium 3.8 mmol/L (3.5-5.1) 08/04/20 02:54 BUN 19 mg/dL (7-18) H 08/04/20 02:54 Creatinine 1.06 mg/dL (0.55-1.3) 08/04/20 02:54 Glucose 112 mg/dL (74-106) H 08/04/20 02:54 Magnesium 2.0 mg/dL (1.8-2.4) 08/04/20 02:54 Total Bilirubin 0.3 mg/dL (0.2-1.0) 08/03/20 11:05 AST 21 U/L (15-37) 08/03/20 11:05 ALT 29 U/L (12-78) 08/03/20 11:05 Alkaline Phosphatase 95 U/L (45-117) 08/03/20 11:05 Troponin I < 0.02 ng/mL (0.0-0.045) 08/04/20 02:54 Triglycerides 144 mg/dL (<150) 08/04/20 02:54 Cholesterol 171 mg/dL (<200) 08/04/20 02:54 HDL Cholesterol 42 mg/dL (40-60) 08/04/20 02:54 Cholesterol/HDL Ratio 4.07 08/04/20 02:54 Lipase 102 U/L (73-393) 08/03/20 11:05 Home Medications: ALPRAZolam [Alprazolam] 2 mg PO TID 02/12/19 Aspirin [Aspirin EC 81 MG] 81 mg PO DAILY 02/12/19 Gabapentin [Neurontin*] 100 mg PO BIDP PRN 02/12/19 Hydrocodone 7.5/APAP 325 [Maurice 7.5/325 mg*] 1 tab PO BIDP PRN 02/12/19 Albuterol Sulfate [Proair Hfa] 2 puff IH TID PRN #1 hfa.[email or web address] 08/04/20 Amlodipine [Norvasc*] 5 mg PO DAILY #30 tab 08/04/20 Atorvastatin Calcium [Lipitor] 80 mg PO DAILY #30 tab 08/04/20 Budesonide/Formoterol Fumarate [Symbicort 160-4.5 Mcg Inhaler] 2 puff IH BID #1 hfa.aer.ad 08/04/20 carvediloL [Coreg*] 25 mg PO BID #60 tab 08/04/20 hydroCHLOROthiazide [Hydrochlorothiazide*] 12.5 mg PO DAILY #30 cap 08/04/20 New Medications: carvediloL [Coreg*] 25 mg PO BID #60 tab hydroCHLOROthiazide [Hydrochlorothiazide*] 12.5 mg PO DAILY #30 cap Atorvastatin Calcium [Lipitor] 80 mg PO DAILY #30 tab Amlodipine [Norvasc*] 5 mg PO DAILY #30 tab Albuterol Sulfate [Proair Hfa] 2 puff IH TID PRN #1 hfa.aer.ad PRN Reason: Shortness Of Breath Budesonide/Formoterol Fumarate [Symbicort 160-4.5 Mcg Inhaler] 2 puff IH BID #1 hfa.aer.ad Patient Discharge Instructions: 1. Recommend follow up with her PCP in 1 week to follow up this hospitalization. 2. Patient presented with chest pain and mild shortness of breath. Patient with history of CAD and prior stent. Symptoms were atypical. The patient was admitted for observation. Cardiac enzymes unremarkable. No significant EKG changes noted. Patient was seen and evaluated by Cardiology. No further cardiac intervention was required during her stay. Patient with history of hypertension. Medications have been adjusted. Patient recently ran out of medication. Will provide refills on medications. At discharge hydralazine has been discontinued. At discharge new medication includes Norvasc. At discharge patient will continue with aspirin 81 mg daily, Norvasc 5 mg daily, carvedilol 25 mg 1 pill twice daily, and hydrochlorothiazide 12.5 mg daily. Recommend to maintain blood pressure less 150/80. Further adjustment can be done by her PCP. Recommend follow up with cardiology within 1 week. Cardiology will make arrangements for outpatient cardiac stress test to further evaluate. 3. Patient with hyperlipidemia. LDL at 100. At discharge patient will continue with Lipitor 80 mg daily. Recommend to recheck fasting lipid panel in 4-6 weeks to monitor progress. Further adjustment in medication or additional medication may be required. This can be addressed by her PCP or cardiology. Lifestyle modification education and heart healthy diet will be provided. 4. Patient with depression with anxiety. Patient takes alprazolam 2 mg 3 times a day. Recommend to wean off medication a s medication can be very addictive and increase sedation. This can be done with the help of her PCP. Recommend psychiatric evaluation as an outpatient to further address. 5. Patient with history of asthma. At discharge will provide medication Symbicort 2 puffs twice daily and Pro air 2 puffs 3 times a day as needed for shortness of breath. Patient may follow up with pulmonology as an outpatient to further address. 6. Patient has chronic pain. Patient uses gabapentin 100 mg twice daily as needed for pain. Patient also takes hydrocodone. Recommend to wean off hydrocodone with the help of her PCP. Diet: AHA Activity: Ad trung Followup: Luis Alberto Rangel DO, DO [Primary Care Provider] - Time spent managing pt's care (in minutes): 55
[2020-08-04 08:29] VITALS: BP 186/91; TEMP 97.4
[2020-08-04] MEDS: AMLODIPINE 5 MG TAB PO SCH (08:29)
[2020-08-04] MEDS: DULERA 100/5 (MOMETASONE/FORMOTEROL) INHALER IH SCH (08:33)
[2020-08-04] MEDS: ENOXAPARIN 40 MG/0.4 ML SQ SCH (08:33)
[2020-08-04] MEDS ORDERED: POTASSIUM CL SA 10 MEQ TAB PO ONE (09:00)
[2020-08-04] MEDS ORDERED: ASPIRIN EC 81 MG TAB PO SCH (09:00)
[2020-08-04] MEDS ORDERED: CLOPIDOGREL 75 MG TABLET PO SCH (09:00)
[2020-08-04] MEDS ORDERED: carvediloL 12.5 MG TAB PO SCH (09:00)
--- NOTE | 2020-08-05 09:31 | CON ---
Date of Consultation: 08/04/2020 Reason For Consultation: Chest pain. History Of Present Illness: The patient is a 69-year-old black woman, who normally sees Dr. Sharma in [place], has a history of hypertension, CAD, status post stent. She has a history of anxiety, depr ession, dyslipidemia, and gastroesophageal reflux disease. Came in with sharp, stabbing chest pain a t the mid epigastric region radiating to the back without any nausea, vomiting, diaphoresis, PND, ort hopnea, pedal edema, palpitation, or syncope. EKG, chest x-ray, troponin, BNP, and CPKs and MBs were all negative. She is asymptomatic right now. Pain was not exertional. The patient indicated she d oes not want to go back and see Dr. Sharma in [place]. Past Medical History: As stated above. Allergies: SHE IS ALLERGIC TO TRAMADOL. Review of Systems: Negative. Social History: Negative. Family History: Noncontributory. Medications: At home include aspirin, hydralazine, hydrochlorothiazide, Coreg, Xanax, Lipitor, and N eurontin. Physical Examination: General: The patient was very pleasant, no acute distress. Vital SIGNS: Stable. Afebrile. HEENT: Negative. Neck: Supple with no bruit, lymphadenopathy, JVD, or thyromegaly. Chest: Clear to auscultation and percussion. Cardiac: Regular rhythm and rate with an S4 gallops. No murmurs or rubs. Abdomen: Benign. Extremities: No clubbing, cyanosis, or edema. Skin: Dry and intact. Neurological: She was nonfocal. Pulses were present distally bilaterally. Diagnostic Data: All normal. Impression And Plan: Atypical chest pain in a patient with history of hypertension, coronary artery disease, status post stent. She has anxiety, depression, dyslipidemia, and gastroesophageal reflux d isease, all of which are stable. The patient is now pain-free. She has ruled out for myocardial inf arction. I agree with her present regimen. I am comfortable with her going home. I think she needs to have an outpatient echocardiogram and an outpatient MPI, and I will see her in the near future. Case was discussed with Dr. Richmond. WILBERTO/CARMELA Voice ID: [id number] Report ID: [id number]
== END 2020-08-04 09:48 | disposition home or self-care (01) ==
LOC: ER 10:45 → ERHOLD 12:44 → 2ND 14:05
PROVIDERS: ADMIT Family Medicine; ATTEND Family Medicine
DX: R07.89 Other chest pain (principal); Z20.828 Contact with and (suspected) exposure to other viral communicable diseases; I25.10 Atherosclerotic heart disease of native coronary artery without angina pectoris; Z95.5 Presence of coronary angioplasty implant and graft; I10 Essential (primary) hypertension; E78.5 Hyperlipidemia, unspecified; K21.9 Gastro-esophageal reflux disease without esophagitis; F41.8 Other specified anxiety disorders; J45.909 Unspecified asthma, uncomplicated; G89.29 Other chronic pain; R06.02 Shortness of breath; R94.31 Abnormal electrocardiogram [ECG] [EKG]
CPT/HCPCS: 96361; 93005; 85025; 80048 ×2; 36415 ×2; 83735 ×2; 82550 ×2; 85610; 80061; 80076; 84443; 84484 ×3; 82553 ×2; 84439; 83690; 83880; 71045; 96372; 96374; 99285; U0003; J1650 ×2; J7040; J7030; G0378 ×3; J7606

== ENCOUNTER 2020-08-11 20:01 | Inpatient (IN) | payer OTHER ==
--- OUTSIDE RECORDS SUMMARY | 2020-08-11 20:04 | XMS REPORT | Clinical Summary ---
:1950 Author Organization [facility] Address [address] [place] [address] Care Team Providers Name Role Phone Jonelle [...] PNEUMOCOCCAL 65+ YRS (1 of 1 - [id number] PCV13) 2014 MEDICARE ANNUAL WELLNESS (YEAR 2 or FIRST YEAR if no 12/08/2015 IPPE) INFLUENZA VACCINE (#1) 2020 Results Not on fileafter 08/11/2019 Insurance Payer Benefit Plan / Subscriber ID Effective Dates Phone Addre ss Type Group MEDICARE MEDICARE A B [id number] 2014-Present Medicare [place] MED[place] [id number] 2018-Present Advance Directives For more information, please contact: [phone] Code Status Date Activated Date Inactivated Comments Full Code 12/11/2018 5:02 AM 12/13/2018 5:56 PM This code status was determined by: Patient
--- OUTSIDE RECORDS SUMMARY | 2020-08-11 20:05 | XMS REPORT | Continuity of Care Document ---
:1950 Author Organization [facility] t Address [address] [place] [address] Care Team Providers Name Role Phone Evelina [...] Date Quantity Comments Source Sex Assigned At [facility] Tobacco use and 2018-12-16 2018-12-16 Never used RYANN Knowles Niyah kes - exposure 00:00:00 [facility]:00 [facility] Smoking Status Start Date Stop Date Source [facility] Medications Ordered Filled Start Stop [...] 10 MG 15:56: daily. Medical tablet 15 [place] ALPRAZolam Yes 2mg Take 2 mg CH [...] Source BP Diastolic 2019-05-13 00:00:00 98 mm[facility]Hg[facility] Height 2019-05-13 00:00:00 62 [in_i] [facility] BMI (Body Mass 2019-05-13 00:00:00 38.6 kg/m2 [facility]) Group BP Systolic 2019-05-13 00:00:00 170 mm[Hg] [facility] Body Weight 2019-05-13 00:00:00 211 [lb_av] [facility] BP Diastolic 2019-04-15 00:00:00 94 mm[Hg] [facility] Height 2019-04-15 00:00:00 62 [in_i] [facility] BMI (Body Mass 2019-04-15 00:00:00 37.9 kg/m2 [facility]) Group BP Systolic 2019-04-15 00:00:00 130 mm[Hg] [facility] Body Weight 2019-04-15 00:00:00 207 [lb_av] [facility] Procedures Procedure Date / Time Performed Performing Clinician Sourc e Carotid Stent [facility] Tubal [facility] Foot/toes Surgery [facility] Plan of Care [...] 00:00:00 (1 of 1 - Medical Center [id number] PCV13) [code = PNEUMOCOCCAL 65+ YRS (1 of 1 - [id number] PCV13)] Future Scheduled [address] [facility] - Test 00:00:00 malignant [facility] breast (procedure) [code = 642875072] Future Scheduled [address] [facility] - Test 00:00:00 malignant ne[facility] of [facility] colon (procedure) [code = 215661998] Encounters Start End Encounter Admission Attending Care Care Encounter Source Date/Time Date/Time Type Type Clinicians Facility Department ID 2019-05-13 2019-05-13 [facility] [place] - [id number] M atagor 00:00:00 00:00:00 Chantale Shea Medicshirley hernandez MD: [address] [facility], OBGYN [address], [place] [address] , Ph. [phone] 2019-04-15 2019-04-15 R[facility] [place] - [id number] M caroline 00:00:00 00:00:00 Max Srivastava, Medical Medica david AKERS: [address] [place] [address] [address], [place] [address] , Ph. [phone] Results Test Description Test Time Test Comments Results Result Comments Source Thyroid Stimulating Hormone 2019-05-01 22:54:49 Test Item Value Reference Range Interpretation Comme nts TSH (test code = TSH) 1.940 mIU/mL 0.270-4.200 Comprehensive Metabolic [id number] 22:34:40 Test Item Value Reference Range Interpretation [...] = A/G 1.4 ratio N Ratio) Lipid [id number] 22:34:40 Test Item Value Reference Range Interpretation Comments Cholesterol Total 212 mg/dL 0-200 H RISK OF HE ART (test code = DISEASEPublishe d by Cholesterol Total) English Heart Association Farhana lyte Optimal Borderl ine [...] LDL/HDL Ratio=L DL Calc/HDL Chol Comprehensive Metabolic [id number] 22:34:40 Test Item Value Reference Range Interpretation [...] National Kidney Foundation, http://nkdep.ni h.gov Comprehensive Metabolic [id number] 22:34:40 Test Item Value Reference Range Interpretation [...] by the National Kidney Foundation, http://nkdep.ni h.gov [id number] 21:47:04 Test Item Value Reference Range Interpretation [...] code = Normal Normal Plt Estimation) Automated [id number] 21:28:33 Test Item Value Reference Range Interpretation Comments Neutro Auto (test code = Neutro 59.6 % 36.0-70.0 Auto) Lymph Auto (test code = Lymph Auto) 29.8 % 12.0-44.0 Schleicher Auto (test code = Schleicher Auto) 8.2 % 0.0-11.0 Eos, Auto (test code = Eos, Auto) 1.8 % 0.0-7.0 Basophil Auto (test code = Basophil 0.4 % 0.0-2.0 Auto) Neutro Absolute (test code = Neutro 3.1 x10 1.6-7.4 Absolute) Lymph Absolute (test code = Lymph 1.53 x10 .50-4.60 Absolute) Schleicher Absolute (test code = Schleicher .42 x10 .00-1.20 Absolute) Eos Absolute (test code = Eos 0.09 x10 0.00-0.74 Absolute) Baso Absolute (test code = Baso 0.02 x10 0.00-0.21 Absolute) IG [id number] 21:28:33 Test Item Value Reference Range Interpretation Comments IG (test code = IG) 0.2 % 0.0-5.0 IG Abs (test code = IG Abs) 0 x10 N Complete Blood Count with [id number] 21:28:32 Test Item Value Reference Range Interpretation [...] 11 % N Complete Blood Count with [id number] 21:28:32 Test Item Value Reference Range Interpretation [...] IPF) 11 % N pap, LB + [id number] 00:00:00 Test Item Value Reference Range Interpretation Comments HPV type-detect 3.0 by next gen not detected sequencing (reflex to HPV-16 risk assessment status) (test code = HPV type-detect 3.0 by next gen sequencing (reflex to HPV-16 risk assessment status)) General categories normal [interpretation] of Cervical or vaginal smear or scraping by Cyto stain (test code = 99868-6) [facility] [#/volume] in [id number] 00:00:00 Test Item Value Reference Range Interpretation [...] code = pseudomonas aeruginosa by real-time PCR) [facility] Hospital[facility]inalysis macro (dipstick) panel - [id number] 10:21:00 Test Item Value Reference Range Interpretation Comments Leukocytes (test code = Leukocytes) Trace Nitrite (test code = Nitrite) negative Urobilinogen (test code = 1 Urobilinogen) Protein (test code = Protein) 30 pH (test code = pH) 5.5 Blood (test code = Blood) Negative Specific Buford (test code = 1.030 Specific Buford) Ketone (test code = Ketone) Negative Bilirubin (test code = Bilirubin) Negative Glucose (test code = Glucose) Negative Appearance (test code = Appearance) Clear Color (test code = Color) Yellow [facility] Hospital[facility]inalysis macro (dipstick) panel - [id number] 10:21:00 Test Item Value Reference Range Interpretation Comments Leukocytes (test code = Leukocytes) Trace Nitrite (test code = Nitrite) negative Urobilinogen (test code = 1 Urobilinogen) Protein (test code = Protein) 30 pH (test code = pH) 5.5 Blood (test code = Blood) Negative Specific Buford (test code = 1.030 Specific Buford) Ketone (test code = Ketone) Negative Bilirubin (test code = Bilirubin) Negative Glucose (test code = Glucose) Negative Appearance (test code = Appearance) Clear Color (test code = Color) Yellow [facility] [id number] 09:00:00 Test Item Value Reference Range Interpretation Comments Surgical pathology see separate pathology study (test code = report. 63000-6) [facility] Hospital[facility]-GLUCOSE [id number] 12:33:00 Test Item Value Reference Range Interpretation Comments POC-GLUCOSE METER 131 mg/dL 70-[address] [facility] ([facility]) (test code [address] [facility] [place] = 1535) [address] URINE [id number] 07:56:00 Test Item Value Reference Range Interpretation Comments CULTURE ([facility]) (test ESCHERICHIA COLI A 2 0-29,000 col/mL [...] = 47) <10,000 col/mL skin floraHEPATIC FUNCTION [id number] 06:05:00 Test Item Value Reference Range Interpretation Comments TOTAL PROTEIN ([facility]) (test code = 7.1 gm/dL 6.0-8.5 770) ALBUMIN ([facility]) (test code = 1145) 3.9 g/dL 3.5-5.0 BILIRUBIN TOTAL (AKER) (test code 0.4 mg/dL 0.1-1.2 = 377) BILIRUBIN DIRECT ([facility]) (test 0.2 mg/dL 0.0-0.4 code = 706) ALKALINE PHOSPHATASE ([facility]) (test 98 U/L 30-115 code = 346) AST (SGOT) (BEAKER) (test code = 19 U/L 5-40 353) ALT (SGPT) ([facility]) (test code = 36 U/L 5-50 347) [id number] 05:47:00 Test Item Value Reference Range Interpretation [...] for patients with mechanical heart valves.BASIC METABOLIC [id number] 05:46:00 Test Item Value Reference Range Interpretation [...] S NOT APPLICABLE FOR DIALYSIS PATIEN TS. [id number] 05:43:00 Test Item Value Reference Range Interpretation Comments PHOSPHORUS (BEAKER) (test code = 2.6 mg/dL 2.5-4.5 604) [id number] 05:38:00 Test Item Value Reference Range Interpretation Comments MAGNESIUM (BEAKER) (test code = 2.0 mg/dL 1.5-3.0 627) CBC W/PLT COUNT & AUTO [id number] 05:30:00 Test Item Value Reference Range Interpretation [...] PERCENT (BEAKER) (test code = 2801) CALCIUM, [id number] 05:06:00 Test Item Value Reference Range Interpretation Comments CALCIUM IONIZED (BEAKER) (test 1.18 mmol/L 1.12-1.27 code = 698) PH, BLOOD (BEAKER) (test code = 7.45 1810) [id number] 05:21:00 Test Item Value Reference Range Interpretation Comments PHOSPHORUS (BEAKER) (test code = 1.8 mg/dL 2.5-4.5 L 604) CALCIUM, [id number] 05:20:00 Test Item Value Reference Range Interpretation Comments CALCIUM IONIZED (BEAKER) (test 0.92 mmol/L 1.12-1.27 L code = 698) PH, BLOOD (BEAKER) (test code = 7.42 1810) BASIC METABOLIC [id number] 05:18:00 Test Item Value Reference Range Interpretation [...] APPLICABLE FOR DIALYSIS PATIEN TS. HEPATIC FUNCTION [id number] 05:16:00 Test Item Value Reference Range Interpretation [...] (test code = 28 U/L 5-50 347) [id number] 05:09:00 Test Item Value Reference Range Interpretation [...] is 2.5-3.5 for patients with mechanical heart valves.[id number] 05:07:00 Test Item Value Reference Range Interpretation Comments MAGNESIUM ([place]) (test code = 1.2 mg/dL 1.5-3.0 L 627) TROPONIN [id number] 15:48:00 Test Item Value Reference Range Interpretation [...] acidosis, acute neurological disease, and persistent tachyarrhythmia.HEMOGLOBIN [id number] 10:08:00 Test Item Value Reference Range Interpretation Comments HEMOGLOBIN A1C ([place]) (test code = 6.1 % 4.3-6.1 368) CT, CHEST WITH IV CONTRAST- PE TEST [id number] 09:48:00FINAL REPORT CT of the chest, pulmonary [...] Finch Verified Date/Time: 12/11/2018 09:48:10 Reading Location: [facility] B1 C013X Ortho Consult Reading Room RAD, [...] Rodriguez Verified Date/Time: 12/11/2018 09:10:32 Reading Location: [facility] Radiology Reading Room COMPREHENSIVE METABOLIC PANEL 2018-12-11 [...] NOT APPLICABLE FOR DIALYSIS PATIEN TS. TROPONIN [id number] 07:24:00 Test Item Value Reference Range Interpretation [...] acidosis, acute neurological disease, and persistent tachyarrhythmia.LIPID [id number] 07:23:00 Test Item Value Reference Range Interpretation [...] 100-129 Borderline 130-159 High 160-189 Very High [id number] 07:15:00 Test Item Value Reference Range Interpretation Comments MAGNESIUM (BEAKER) (test code = 2.0 mg/dL 1.5-3.0 627) CBC W/PLT COUNT & AUTO [id number] 07:00:00 Test Item Value Reference Range Interpretation [...]
[2020-08-11 20:45] LABS: Absolute Lymphocytes (CBC) 2.3 K/uL (0.7-4.9); Basophils % 1.3 % (0-1.3); Hematocrit 36.2 % (36.0-45.0); Lymphocytes % 31.5 % (15.3-44.8); RBC Red Blood Cell Count 4.19 M/uL (3.86-4.86)
[2020-08-11 20:54] LABS: Protime INR 1.12
[2020-08-11 21:06] LABS: ALT/SGPT 36 U/L (12-78); AST/SGOT 32 U/L (15-37); Albumin 3.7 g/dL (3.4-5.0); Alkaline Phosphatase 105 U/L (45-117); BUN Blood Urea Nitrogen 25 mg/dL (7-18); Bicarbonate 31 mmol/L (21-32); Bilirubin Direct < 0.1 mg/dL (0-0.2); Bilirubin Total 0.2 mg/dL (0.2-1.0); Glucose Level 103 mg/dL (74-106); Magnesium 1.8 mg/dL (1.8-2.4); NT PRO-BNP 22 pg/mL (<125); Potassium 3.5 mmol/L (3.5-5.1); Protein, Total 7.6 g/dL (6.4-8.2); Sodium Level 144 mmol/L (136-145); Troponin (Emerg Dept Use Only) < 0.02 ng/mL (0.0-0.045)
--- NOTE | 2020-08-11 21:18 | RAD REPORT ---
EXAM DESCRIPTION: RAD - Chest Single View - 08/11/2020 8:59 pm CLINICAL HISTORY: CHEST PAIN Chest pain. COMPARISON: Chest Single View dated 08/03/2020; Chest Single View dated 02/11/2019; Chest Pa And Lat ( 2 Views) dated 02/14/2017; Chest Single View dated 07/18/2016 FINDINGS: Portable technique limits examination quality. The lungs are grossly clear. The heart is normal in size. Mildly tortuous thoracic aorta. No displace d fractures. IMPRESSION: No acute intrathoracic process suspected.
--- NOTE | 2020-08-11 21:50 | ER ---
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 Mid-sternal radiating to the ca1 back and neck, painscale 06/17. Reports SOB with CP. Reports cough off and on x 1-2 weeks. Was here a week ago for the same symptoms. Denies injury to chest. Reports previous HX of heart attack and heart conditions. Denies fever. Coronavirus screen: Client denies travel out of the [place] in the last 14 days. cough unrelated to allergies, shortness of breath, Client presents with at least one sign or symptom that may indicate coronavirus-19. Standard/surgical mask placed on the client. Provider contacted for isolation considerations. The client reports previous COVID testing was negative. Date of collection: July 2020. Ebola Screen: Patient negative for fever greater than or equal to 101.5 degrees Fahrenheit, and additional compatible Ebola Virus Disease symptoms Patient denies exposure to infectious person. Patient denies travel to an Ebola-affected area in the 21 days before illness onset. No symptoms or risks identified at this time. Initial Sepsis Screen: Does the patient meet any 2 criteria? No. Patient's initial sepsis screen is negative. Does the patient have a suspected source of infection? No. Patient's initial sepsis screen is negative. Risk Assessment: Do you want to hurt yourself or someone else? Patient reports no desire to harm self or others. Onset of symptoms was August 11, 2020. 20:15 Method Of Arrival: Wheelchair ca1 20:15 Acuity: DYLAN 3 ca1 Triage Assessment: 20:28 General: Appears in no apparent distress. comfortable, Behavior is calm, cooperative, ca1 appropriate for age. Pain: Complains of pain in mid-sternal area Pain radiates to back Pain currently is 9 out of 10 on a pain scale. Pain began 2 hours ago. Is continuous. EENT: No signs and/or symptoms were reported regarding the EENT system. Neuro: Level of Consciousness is awake, alert, obeys commands, Oriented to person, place, time, situation, Appropriate for age. Cardiovascular: Heart tones S1 S2 present Capillary refill < 3 seconds Patient's skin is warm and dry. Rhythm is sinus rhythm. Respiratory: Airway is patent Respiratory effort is even, unlabored, Respiratory pattern is regular, symmetrical, Breath sounds are clear bilaterally. Respiratory: Reports shortness of breath cough that is. GI: Abdomen is round non-distended, Bowel sounds present X 4 quads. Abd is soft and non tender X 4 quads. : No signs and/or symptoms were reported regarding the genitourinary system. Derm: Skin is intact, is healthy with good turgor, Skin is pink, warm \T\ dry. Musculoskeletal: Circulation, motion, and sensation intact. Capillary refill < 3 seconds. Historical: - Allergies: 20:28 Tramadol HCl; ca1 - PMHx: 20:28 Anxiety; Asthma; Depression; GERD; Hypertension; ca1 - PSHx: 20:28 Heart stents; ca1 - Immunization history:: Adult Immunizations up to date, Flu vaccine is not up to date. Patient has never been vaccinated. - Social history:: Smoking status: Patient denies any tobacco usage or history of. Screenin:30 Abuse screen: Denies threats or abuse. Denies injuries from another. Nutritional ca1 screening: No deficits noted. Tuberculosis screening: No symptoms or risk factors identified. Fall Risk IV access (20 points). Assessment: 20:30 Reassessment: See triage notes. Pain: Complains of pain in chest Pain does not radiate. ca1 Pain currently is 7 out of 10 on a pain scale. Pain began 2 hours ago. 21:46 Reassessment: Patient appears in no apparent distress at this time. Patient and/or ca1 family updated on plan of care and expected duration. Pain level reassessed. Patient is alert, oriented x 3, equal unlabored respirations, skin warm/dry/pink. 22:53 Reassessment: Patient appears in no apparent distress at this time. Patient and/or jd3 family updated on plan of care and expected duration. Pain level reassessed. Patient is alert, oriented x 3, equal unlabored respirations, skin warm/dry/pink. report given to Tania BARRY. Vital Signs: 20:15 BP 148 / 89; Pulse 70; Resp 20 S; Temp 98(O); Pulse Ox 99% on R/A; Weight 92.99 kg (R); ca1 Height 5 ft. 2 in. (157.48 cm) (R); Pain 9/10; 21:46 BP 132 / 75; Pulse 70; Resp 16 S; Pulse Ox 98% on R/A; ca1 22:53 BP 123 / 83; Pulse 65; Resp 17 S; Pulse Ox 98% on R/A; jd3 20:15 Body Mass Index 37.49 (92.99 kg, 157.48 cm) ca1 ED Course: 20:03 Patient arrived in ED. am2 20:03 Luis Alberto Rangel DO is Private Physician. am2 20:23 Edilma Renner, ASHA is Primary Nurse. ca1 20:28 Triage completed. ca1 20:28 Arm band placed on right wrist. ca1 20:30 Patient has correct armband on for positive identification. Placed in gown. Bed in low ca1 position. Call light in reach. Side rails up X2. front desk monitor on. Pulse ox on. NIBP on. Warm blanket given. 20:31 Patient maintains SpO2 saturation greater than 95% on room air. ca1 20:40 Bernardo Randall MD is Attending Physician. mh7 20:41 Initial lab(s) drawn, by me, sent to lab. EKG done, by ED staff, reviewed by Bernardo Randall MD. Inserted saline lock: 20 gauge in right antecubital area, using aseptic technique. Blood collected. 20:59 XRAY Chest (1 view) In Process Unspecified. EDMS 21:49 Jeffrey Burden is Hospitalizing Provider. 7 22:52 No provider procedures requiring assistance completed. Patient admitted, IV remains in jd3 place. Administered Medications: 21:52 Drug: Nitro-Bid Ointment 2 % 1 inches Route: Transdermal; Site: anterior chest wall; ca1 Outcome: 21:50 Decision to Hospitalize by Provider. 7 22:52 Admitted to Med/surg accompanied by israel, via wheelchair, room 207, with chart, Report jd3 called to Tania BARRY 22:52 Condition: stable 22:52 Instructed on the need for admit, Demonstrated understanding of instructions. 23:15 Patient left the ED. jd3 Signatures: Dispatcher [employer] EDMS Consuelo Clancy am2 Dami White, RN RN jd3 Edilma Renner RN RN ca1 Bernardo Randall MD MD mh7 Corrections: (The following items were deleted from the chart) 21:46 20:30 Pain: Complains of pain in chest ca1 ca1
--- NOTE | 2020-08-11 21:51 | EDPHYS ---
Physician Documentation [facility] Name: Cole Cadena Age: 69 yrs Sex: Female : 1950 Arrival Date: 08/11/2020 Time: 20:03 Bed 15 Private MD: Luis Alberto Rangel H ED Physician Bernardo Randall HPI: 08/11 21:00 This 69 yrs old Black Female presents to ER via Wheelchair with complaints of Chest mh7 Pressure. 21:00 The patient or guardian reports chest pain that is located primarily in the substernal mh7 area. Onset: just prior to arrival, today. The pain radiates to back. Associated signs and symptoms: Pertinent positives: shortness of breath, Pertinent negatives: abdominal pain, cough, diaphoresis, dizziness, headache, lower extremity pain, lower extremity swelling, lightheadedness, nausea, near syncope, palpitations, recent travel, syncope, vomiting. The chest pain is described as aching, a pressure. Duration: The patient or guardian reports multiple episodes, that are intermittent, that wax and wane. Modifying factors: The symptoms are alleviated by nothing. the symptoms are aggravated by nothing. Severity of pain: At its worst the pain was moderate today, in the emergency department the pain has improved moderately. Historical: - Allergies: 20:28 Tramadol HCl; ca1 - PMHx: 20:28 Anxiety; Asthma; Depression; GERD; Hypertension; ca1 - PSHx: 20:28 Heart stents; ca1 - Immunization history:: Adult Immunizations up to date, Flu vaccine is not up to date. Patient has never been vaccinated. - Social history:: Smoking status: Patient denies any tobacco usage or history of. ROS: 21:00 Constitutional: Negative for fever, chills, and weight loss, Eyes: Negative for injury, mh7 pain, redness, and discharge, ENT: Negative for injury, pain, and discharge, Neck: Negative for injury, pain, and swelling, Abdomen/GI: Negative for abdominal pain, nausea, vomiting, diarrhea, and constipation, Back: Negative for injury and pain, : Negative for injury, bleeding, discharge, and swelling, MS/Extremity: Negative for injury and deformity, Skin: Negative for injury, rash, and discoloration, Neuro: Negative for headache, weakness, numbness, tingling, and seizure, Psych: Negative for depression, anxiety, suicide ideation, homicidal ideation, and hallucinations, Allergy/Immunology: Negative for hives, rash, and allergies, Endocrine: Negative for neck swelling, polydipsia, polyuria, polyphagia, and marked weight changes, Hematologic/Lymphatic: Negative for swollen nodes, abnormal bleeding, and unusual bruising. Exam: 21:00 Constitutional: This is a well developed, well nourished patient who is awake, alert, mh7 and in no acute distress. Head/Face: Normocephalic, atraumatic. Eyes: Pupils equal round and reactive to light, extra-ocular motions intact. Lids and lashes normal. Conjunctiva and sclera are non-icteric and not injected. Cornea within normal limits. Periorbital areas with no swelling, redness, or edema. Neck: Trachea midline, no thyromegaly or masses palpated, and no cervical lymphadenopathy. Supple, full range of motion without nuchal rigidity, or vertebral point tenderness. No Meningismus. Chest/axilla: Normal chest wall appearance and motion. Nontender with no deformity. No lesions are appreciated. Cardiovascular: Regular rate and rhythm with a normal S1 and S2. No gallops, murmurs, or rubs. Normal PMI, no JVD. No pulse deficits. Respiratory: Lungs have equal breath sounds bilaterally, clear to auscultation and percussion. No rales, rhonchi or wheezes noted. No increased work of breathing, no retractions or nasal flaring. Abdomen/GI: Soft, non-tender, with normal bowel sounds. No distension or tympany. No guarding or rebound. No evidence of tenderness throughout. Back: No spinal tenderness. No costovertebral tenderness. Full range of motion. Skin: Warm, dry with normal turgor. Normal color with no rashes, no lesions, and no evidence of cellulitis. MS/ Extremity: Pulses equal, no cyanosis. Neurovascular intact. Full, normal range of motion. Neuro: Awake and alert, GCS 15, oriented to person, place, time, and situation. Cranial nerves II-XII grossly intact. Motor strength 5/5 in all extremities. Sensory grossly intact. Cerebellar exam normal. Normal gait. Psych: Awake, alert, with orientation to person, place and time. Behavior, mood, and affect are within normal limits. Vital Signs: 20:15 BP 148 / 89; Pulse 70; Resp 20 S; Temp 98(O); Pulse Ox 99% on R/A; Weight 92.99 kg (R); ca1 Height 5 ft. 2 in. (157.48 cm) (R); Pain 9/10; 21:46 BP 132 / 75; Pulse 70; Resp 16 S; Pulse Ox 98% on R/A; ca1 22:53 BP 123 / 83; Pulse 65; Resp 17 S; Pulse Ox 98% on R/A; jd3 20:15 Body Mass Index 37.49 (92.99 kg, 157.48 cm) ca1 MDM: 20:59 Patient medically screened. mh7 21:48 Differential diagnosis: abnormal EKG, acute myocardial infarction, acute pericarditis, mh7 anxiety, coronary artery disease chest wall pain, congestive heart failure costochondritis, myocarditis, pericarditis, pneumonia, pneumothorax. HEART Score: History: Moderately Suspicious (1), ECG: Non specific repolarization disturbance / LBTB / PM (1), Age: > or = 65 years (2), Risk Factors: 1 or 2 risk factors (1), [Hypercholesterolemia] [Hypertension] Troponin: < or = 1 x Normal Limit (0), Total Score = 5. Data reviewed: vital signs, nurses notes, old medical records, lab test result(s), cardiac enzymes, CBC, electrolytes, urinalysis, EKG, radiologic studies, plain films. Data interpreted: Pulse oximetry: on room air is 98 %. Interpretation: normal. 08/11 20:31 Order name: Basic Metabolic Panel; Complete Time: 21:21 kb 08/11 20:31 Order name: CBC with Diff; Complete Time: 21:00 kb 08/11 20:31 Order name: LFT's; Complete Time: 21:21 kb 08/11 20:31 Order name: Magnesium; Complete Time: 21:21 kb 08/11 20:31 Order name: NT PRO-BNP; Complete Time: 21:21 kb 08/11 20:31 Order name: PT-INR; Complete Time: 21:00 kb 08/11 20:31 Order name: Troponin (emerg Dept Use Only); Complete Time: 21:21 kb 08/11 20:31 Order name: XRAY Chest (1 view); Complete Time: 21:23 kb 08/11 20:31 Order name: EKG; Complete Time: 20:32 kb 08/11 20:31 Order name: Cardiac monitoring; Complete Time: 20:32 kb 08/11 20:31 Order name: EKG - Nurse/Tech; Complete Time: 20:32 kb 08/11 20:31 Order name: IV Saline Lock; Complete Time: 20:41 kb 08/11 20:31 Order name: EKG; Complete Time: 20:32 ca1 08/11 20:31 Order name: Labs collected and sent; Complete Time: 20:41 kb 08/11 20:31 Order name: O2 Per Protocol; Complete Time: 20:32 kb 08/11 20:31 Order name: O2 Sat Monitoring; Complete Time: 20:32 kb 08/11 20:31 Order name: EKG - Nurse/Tech; Complete Time: 20:32 ca1 Administered Medications: 21:52 Drug: Nitro-Bid Ointment 2 % 1 inches Route: Transdermal; Site: anterior chest wall; ca1 Disposition: 08/11/20 21:50 Hospitalization ordered by Jeffrey Burden for Observation. Preliminary diagnosis is Chest pain, unspecified. - Bed requested for Telemetry/MedSurg (observation). - Status is Observation. jd3 - Condition is Stable. - Problem is new. - Symptoms have improved. Signatures: Dispatcher [employer] EDMS Rissa Cisneros, SUPERVISOR LOGGING-C SUPERVISOR LOGGING-CkJosselin Fajardo RN RN tl1 Dami White RN RN jd3 Edilma Renner RN RN ca1 Bernardo Randall MD MD 7 Corrections: (The following items were deleted from the chart) 22:15 21:50 Hospitalization Ordered by Jeffrey Burden for Observation. Preliminary diagnosis tl1 is Chest pain, unspecified. Bed requested for Telemetry/MedSurg (observation). Status is Observation. Condition is Stable. Problem is new. Symptoms have improved. mh7 23:15 22:15 08/11/2020 21:50 Hospitalization Ordered by Jeffrey Burden for Observation. jd3 Preliminary diagnosis is Chest pain, unspecified. Bed requested for Telemetry/MedSurg (observation). Status is Observation. Condition is Stable. Problem is new. Symptoms have improved. tl1
[2020-08-11] MEDS ORDERED: NITROGLYCERIN 1 GM PKT TD ONE (22:03)
[2020-08-11] MEDS ORDERED: ONDANSETRON 4 MG/2 ML VIAL IV PRN (23:21)
[2020-08-11] MEDS ORDERED: ACETAMINOPHEN 500 MG TAB PO PRN (23:21)
[2020-08-11 23:23] VITALS: BMI 37.6
--- NOTE | 2020-08-11 23:48 | P.HP ---
Certification for Inpatient Patient admitted to: Observation With expected LOS: <2 Midnights Patient will require the following post-hospital care: None Practitioner: I am a practitioner with admitting privileges, knowledge of patient current condition, hospital course, and medical plan of care. Services: Services provided to patient in accordance with Admission requirements found in Title 42 Section 412.3 of the Code of Federal Regulations Patient History Date of Service: 08/11/20 Primary Care Provider: Dr. Rangel Reason for admission: Chest Pain History of Present Illness: This is a 69-year-old female with a history of anxiety, asthma, depression, GERD, hypertension, cholesterol, coronary artery disease with stents in the past. Presented to the emergency room after having about a 4 hr onset of chest pressure that was unrelieved at home. Patient was worked up in the emergency room for chest pain. EKG unequivocal with negative troponin. Remainder of the labs are unchanged from previous history. Patient currently only with mild pain at this time but does have a nitroglycerin ointment patch on. Hemodynamically s table otherwise. Patient stated that the chest pain had been pressure in nature in the substernal region and radiated to the back. Denied any shortness of breath, nausea, diaphoresis. Allergies tramadol Allergy (Verified 08/11/20 23:29) throwing up, delirium Home medications list reviewed: Yes Home Medications: ALPRAZolam [Alprazolam] 2 mg PO TID 02/12/19 Aspirin [Aspirin EC 81 MG] 81 mg PO DAILY 02/12/19 Gabapentin [Neurontin*] 100 mg PO BIDP PRN 02/12/19 Hydrocodone 7.5/APAP 325 [[place] 7.5/325 mg*] 1 tab PO BIDP PRN 02/12/19 Albuterol Sulfate [Proair Hfa] 2 puff IH TID PRN #1 hfa.aer.ad 08/04/20 Amlodipine [Norvasc*] 5 mg PO DAILY #30 tab 08/04/20 Atorvastatin Calcium [Lipitor] 80 mg PO DAILY #30 tab 08/04/20 Budesonide/Formoterol Fumarate [Symbicort 160-4.5 Mcg Inhaler] 2 puff IH BID #1 hfa.aer.ad 08/04/20 carvediloL [Coreg*] 25 mg PO BID #60 tab 08/04/20 hydroCHLOROthiazide [Hydrochlorothiazide*] 12.5 mg PO DAILY #30 cap 08/04/20 - Past Medical/Surgical History Has patient received pneumonia vaccine in the past: No Diabetic: No -: Depression with anxiety -: GERD -: Hypertension -: CAD with prior stent -: Hyperlipidemia -: Asthma -: gout -: arthiritis -: tubal ligation -: Cardiac stent Psychosocial/ Personal History: Patient . She lives by herself. - Family History Father -: Lung disease Mother -: Heart disease - Social History Smoking Status: Never smoker Smoking therapy provided: No Alcohol use: No CD- Drugs: No Caffeine use: No Place of Residence: Home Review of Systems General: Unremarkable Eyes: Unremarkable ENT: Unremarkable Respiratory: Unremarkable Cardiovascular: Chest Pain Gastrointestinal: Unremarkable Musculoskeletal: Unremarkable Integumentary: Unremarkable Neurological: Unremarkable Lymphatics: Unremarkable Physical Examination - Vital Signs Temperature: 98 F Blood Pressure: 148/89 Pulse: 70 Respirations: 16 Pulse Ox (%): 99 (Room air) - Physical Exam General: Alert, In no apparent distress, Oriented x3 HEENT: Normocephalic, PERRLA, Mucous membr. moist/pink, EOMI Neck: Supple, 2+ carotid pulse no bruit, JVD not distended, No Thyromegaly Respiratory: Clear to auscultation bilaterally, Normal air movement Cardiovascular: No edema, Normal pulses, Regular rate/rhythm, Normal S1 S2, No gallops, No rubs, No murmurs Capillary refill: <2 Seconds Gastrointestinal: Normal bowel sounds, Soft and benign, Non-distended, No ascites, No tenderness, No masses, No rebound, No guarding Musculoskeletal: No clubbing, No swelling, No contractures, No erythema, No tenderness, No warmth Integumentary: No rashes, No breakdown, No significant lesion, No tenderness/swelling, No erythema, No warmth, No cyanosis Neurological: Normal speech, Normal strength at 5/5 x4 extr, Normal tone, Sensation intact, Cranial nerves 3-12 intact, Normal reflexes 2+, Normal affect Lymphatics: No axilla or inguinal lymphadenopathy - Studies Laboratory Data (last 24 hrs) 08/11/20 20:39: PT 13.2 H, INR 1.12 08/11/20 20:39: WBC 7.4 D, Hgb 12.5, Hct 36.2, Plt Count 172 D 08/11/20 20:39: Sodium 144, Potassium 3.5, BUN 25 H, Creatinine 0.94, Glucose 103, Magnesium 1.8, Total Bilirubin 0.2, AST 32, ALT 36, Alkaline Phosphatase 105 Assessment and Plan - Problems (Diagnosis) (1) Chest pain Current Visit: Yes Status: Acute Qualifiers: Chest pain type: unspecified Qualified Code(s): R07.9 - Chest pain, unspec ified (2) Hypertension Current Visit: No Status: Chronic Qualifiers: Hypertension type: essential hypertension - Plan Patient will continue to wear nitroglycerin patch for chest pain. Patient's blood pressure will be monitored. Patient will be on telemetry and serial tr oponins will be drawn over the next several hours. EKGs as necessary. Cardiology will be consulted for further assessment. Morning labs will be drawn as well to further assess CBC and BMP to ensure there is no acute change. Patient recently was admitted last week for similar symptoms and found to have no acute findings. Was discussed by cardiology that patient needed to follow up for possible stress test and echocardiogram. Patient was stating that they had tried to have her have a stress test last time but at that time denied. Will have cardiology re-evaluate her to see if they want to stress her tomorrow. Discharge Plan: Home Plan to discharge in: 24 Hours - Advance Directives Does patient have a Living Will: No Does patient have a Durable POA for Healthcare: No - Code Status/Comfort Care Code Status Assessed: Yes Code Status: Full Code Critical Care: No Time Spent Managing Pts Care (In Minutes): 60
[2020-08-12] MEDS: NITROGLYCERIN 1 GM PKT TD SCH ×4 (04:17→20:23)
[2020-08-12 06:01] LABS: Basophils % 0.8 % (0-1.3); Hematocrit 34.9 % (36.0-45.0); Lymphocytes % 34.3 % (15.3-44.8); RBC Red Blood Cell Count 3.99 M/uL (3.86-4.86)
[2020-08-12 06:50] LABS: Potassium 3.4 mmol/L (3.5-5.1)
--- NOTE | 2020-08-12 07:33 | EKG ---
Test Date: 2020-08-11 Test Time: 20:20:07 Craft Coordinator: SHAVON MEASUREMENT RESULTS: Intervals: Rate: 71 AK: 198 QRSD: 84 QT: 444 QTc: 482 [place]: P: 59 AK: 198 QRS: -27 T: 41 INTERPRETIVE STATEMENTS: Normal sinus rhythm Minimal voltage criteria for LVH, may be normal variant Nonspecific T wave abnormality Prolonged QT Abnormal ECG Compared to ECG 08/03/2020 10:56:03 Left ventricular hypertrophy now present T-wave abnormality now present ST (T wave) deviation no longer present Electronically Signed On 08-12-20 07:32:21 VEHICLE BODY BUILDER by Jonathan Lyle
[2020-08-12] MEDS ORDERED: ASPIRIN EC 81 MG TAB PO SCH (09:00)
--- NOTE | 2020-08-12 12:02 | CON ---
Date of Consultation: 08/12/2020 Reason For Consultation: Chest pain. History Of Present Illness: The patient is a 69-year-old black woman. Has a history of CAD status p ost stent, obesity, hypertension, dyslipidemia, and diabetes. Also has a history of anxiety, depress ion, and gastroesophageal reflux disease. Came in with substernal chest pain, radiating to her back and left arm with shortness of breath, nausea, and diaphoresis. Denied PND, orthopnea, pedal edema, palpitations, or syncope. VT has been ruled out. EKG is nonspecific. Potassium is 3.4, glucose is 206. The patient was just in the hospital a week ago for the similar complaint. She was set up to h ave an echocardiogram and a stress test as an outpatient, but she came back to the hospital with more chest pain. Allergies: INCLUDE TRAMADOL. Past Medical History: As stated earlier. Review of Systems: Negative. Social History: Negative. Family History: Negative. Medications: At home include inhalers, Neurontin, Xanax, Coreg, hydrochlorothiazide, Ditropan, aspir in, Norvasc, and Lipitor. Physical Examination: Vital Signs: Stable. She was afebrile. HEENT: Negative. Neck: Supple with no bruit. Chest: Clear to auscultation and percussion. Cardiac: Revealed a regular rhythm and rate. No murmurs, gallops, or rubs. Abdomen: Benign. Extremities: Revealed no clubbing, cyanosis, or edema. Diagnostic Data: As stated earlier. Impression And Plan: This patient's symptoms are suggestive of unstable angina. She has a history o f coronary artery disease and stent. This is her second visit to the hospital in 2 weeks. I recomme nded a left heart catheterization to define her coronary anatomy with possible intervention. She und erstands the risk and the benefits of the procedure. She agrees to proceed. Her other problems incl ude hypertension, diabetes, and dyslipidemia seemed to be stable. She also has a history of anxiety, depression, gastroesophageal reflux disease, and obesity. We will see what her catheterization show s prior to making any final decisions. WILBERTO/CARMELA Voice ID: [id number] Report ID: [id number]
[2020-08-12] MEDS ORDERED: FENTANYL CITR 100 MCG/2 ML ONE (15:17)
[2020-08-12] MEDS ORDERED: NA CHLORIDE 0.9% 500 ML ONE (15:17)
[2020-08-12] MEDS ORDERED: HEPARIN 5000 UNIT/ML 1 ML VIAL ONE ×2 (15:17→15:18)
[2020-08-12] MEDS ORDERED: MIDAZOLAM HCL 2 MG/2 ML INJ ONE (15:17)
[2020-08-12] MEDS ORDERED: HEPA 1000U/500MLS 2,000 UNIT/1,000 ML BAG IV ONE (15:17)
[2020-08-12] MEDS ORDERED: VERAPAMIL HCL 5 MG/2 ML VIAL IV ONE (15:18)
[2020-08-12] MEDS ORDERED: ATROPINE SULF 1 MG/10 ML SYR IV ONE (15:18)
[2020-08-12] MEDS ORDERED: HYDROCODONE/APAP 7.5/325 MG TAB PO PRN (17:36)
--- NOTE | 2020-08-12 17:41 | P.DS ---
Admission Date: 08/13/20 Discharge Date: 08/13/20 Primary Care Provider: Dr. Rangel Discharge Condition: CRITICAL Reason for Admission: Chest Pain Brief History of Present Illness: Please refer to H&P Hospital Course: Patient is a 69-year-old female who returned to the hospital for ongoing chest pain. She was taken to the labor and delivery registered nurse where coronary angiogram revealed severe multi vessel disease including the LAD and obtuse marginal vessels. Cardiology arranged transfer for a higher level of care for CABG. She was accepted but spent an additional day pending available bed at the receiving facility. She finally left on 08/13/2020. Clinical updates was given to edgar Salazar. All questions were answered. Vital Signs/Physical Exam: Temp Pulse Resp BP Pulse Ox 97.9 F 76 18 148/81 H 98 08/12/20 12:00 08/12/20 12:53 08/12/20 12:00 08/12/20 12:53 08/12/20 12:00 General: In no apparent distress, Cooperative HEENT: Atraumatic, Normocephalic, EOMI Neck: Supple Respiratory: Clear to auscultation bilaterally Cardiovascular: No edema, Normal pulses, Regular rate/rhythm, Normal S1 S2 Gastrointestinal: Normal bowel sounds, Soft and benign, Non-distended, No tenderness Musculoskeletal: No clubbing, No swelling, No contractures, No erythema, No tenderness, No warmth Integumentary: No rashes, No breakdown, No significant lesion, No tenderness/swelling, No erythema, No warmth, No cyanosis Neurological: Normal speech, Sensation intact, Normal affect Laboratory Data at Discharge: WBC 5.8 K/uL (4.3-10.9) D 08/12/20 05:48 Hgb 11.7 g/dL (12.0-15.0) L 08/12/20 05:48 Hct 34.9 % (36.0-45.0) L 08/12/20 05:48 Plt Count 151 K/uL (152-406) L 08/12/20 05:48 PT 13.2 SECONDS (9.5-12.5) H 08/11/20 20:39 INR 1.12 08/11/20 20:39 Sodium 141 mmol/L (136-145) 08/12/20 05:48 Potassium 3.4 mmol/L (3.5-5.1) L 08/12/20 05:48 BUN 23 mg/dL (7-18) H 08/12/20 05:48 Creatinine 0.95 mg/dL (0.55-1.3) 08/12/20 05:48 Glucose 206 mg/dL (74-106) H 08/12/20 05:48 Magnesium 1.8 mg/dL (1.8-2.4) 08/11/20 20:39 Total Bilirubin 0.2 mg/dL (0.2-1.0) 08/11/20 20:39 AST 32 U/L (15-37) 08/11/20 20:39 ALT 36 U/L (12-78) 08/11/20 20:39 Alkaline Phosphatase 105 U/L (45-117) 08/11/20 20:39 Troponin I < 0.02 ng/mL (0.0-0.045) 08/12/20 05:48 Home Medications: ALPRAZolam [Alprazolam] 2 mg PO TID 02/12/19 Aspirin [Aspirin EC 81 MG] 81 mg PO DAILY 02/12/19 Gabapentin [Neurontin*] 100 mg PO BIDP PRN 02/12/19 Hydrocodone 7.5/APAP 325 [[place] 7.5/325 mg*] 1 tab PO BIDP PRN 02/12/19 Albuterol Sulfate [Proair Hfa] 2 puff IH TID PRN #1 hfa.aer.ad 08/04/20 Amlodipine [Norvasc*] 5 mg PO DAILY #30 tab 08/04/20 Atorvastatin Calcium [Lipitor] 80 mg PO DAILY #30 tab 08/04/20 Budesonide/Formoterol Fumarate [Symbicort 160-4.5 Mcg Inhaler] 2 puff IH BID #1 hfa.aer.ad 08/04/20 carvediloL [Coreg*] 25 mg PO BID #60 tab 08/04/20 hydroCHLOROthiazide [Hydrochlorothiazide*] 12.5 mg PO DAILY #30 cap 08/04/20 Oxybutynin Chloride [Ditropan Xl*] 5 mg PO BID 08/11/20 Followup: Claire FORRESTER,Luis Alberto Mann DO [Primary Care Provider] -
[2020-08-12] MEDS ORDERED: ACETAMINOPHEN 325 MG TABLET ONE (18:03)
[2020-08-12] MEDS ORDERED: PRO AIR IH PRN (18:04)
[2020-08-12] MEDS: ALPRAZOLAM 1 MG TABLET PO SCH (20:03)
[2020-08-12] MEDS: OXYBUTYNIN ER 5 MG TAB PO SCH (20:03)
[2020-08-12] MEDS: carvediloL 25 MG TAB PO SCH (20:03)
[2020-08-12] MEDS: HOME MED 1 EA UNK (Budesonide/Formoterol Fumarate [Symbicort 160-4.5 Mcg Inhaler] 2 PUFF) IH SCH (20:04)
[2020-08-12] MEDS ORDERED: METOCLOPRAMIDE 10 MG/2mL INJ IV PRN (20:44)
[2020-08-12] MEDS ORDERED: DIPHENHYDRAMINE 50 MG/ML VIAL IV PRN (20:47)
[2020-08-12] MEDS ORDERED: HOME MED 1 EA UNK (Alprazolam [Alprazolam] 2 MG) PO SCH (21:00)
--- NOTE | 2020-08-12 21:15 | OP ---
Date of Procedure: 08/12/2020 Surgeon: ADEBAYO GARIBAY Procedure Performed: Selective coronary angiogram. Indication: Unstable angina. Access: Right radial artery 6-Palauan closed TR band. Total Sedation Time: 15 minutes. Complications: None. Bleeding: Less than 5 mL. Description Of Procedure: After risks, benefits, and alternatives were explained to the patient, she agreed to the procedure and signed formal consent. Then, we brought the patient to the cardiac cath eterization laboratory, prepped and draped in the usual sterile fashion and used fentanyl, Versed in incremental doses to achieve adequate moderate sedation. Then, we accessed the right radial artery u Dash Hudson pediatric micropuncture kit, placed a 6-Palauan slender sheath, and then took 5-Palauan [place] cath eter into the aortic root, engaged the left main, then selectively right coronary artery, and took st andard views. Then, removed the catheter over the wire and the sheath and placed a TR band with good hemostasis. Findings: 1.Left main large, long with no disease. 2.LAD large artery with severe mid LAD in-stent restenosis, followed by severe heavily calcified kvng y long disease, extending all the way to the mid to distal portion, a very long segment. 3.The LAD distally is a good target for bypass and no significant disease. 4.Left circumflex has mid 50% stenosis in the OM branch. First OM branch has 80% stenosis and also long and very tortuous. 5.RCA is ectatic at the proximal portion, but proximal to mid all the way to the bifurcation, it is very long severely calcified and significant stenosis about 80%. Conclusion: Severe multivessel disease with significant mid LAD in-stent restenosis. Recommendation: CT Surgery evaluation for triple-vessel coronary artery bypass. SR/MODL Voice ID: [id number] Report ID: [id number]
[2020-08-13] MEDS: NITROGLYCERIN 1 GM PKT TD SCH ×4 (06:00→17:37)
[2020-08-13] MEDS: HOME MED 1 EA UNK (Budesonide/Formoterol Fumarate [Symbicort 160-4.5 Mcg Inhaler] 2 PUFF) IH SCH (09:00)
[2020-08-13] MEDS ORDERED: AMLODIPINE 5 MG TAB PO SCH (09:00)
[2020-08-13] MEDS ORDERED: ASPIRIN EC 81 MG TAB PO SCH (09:00)
[2020-08-13] MEDS ORDERED: ATORVASTATIN 80 MG TAB PO SCH (09:00)
[2020-08-13] MEDS: carvediloL 25 MG TAB PO SCH (09:06)
[2020-08-13] MEDS: OXYBUTYNIN ER 5 MG TAB PO SCH (09:07)
[2020-08-13] MEDS: ALPRAZOLAM 1 MG TABLET PO SCH ×2 (09:09→14:00)
[2020-08-13 13:53] VITALS: O2SAT 100
[2020-08-13 16:53] VITALS: BP 135/76; TEMP 97.5
== END 2020-08-13 18:11 | disposition short-term general hospital (02) | DRG 287 ==
LOC: ER 20:01 → ERHOLD 22:02 → 2ND 22:54 → OBSVTOIN 08-13 08:29
PROVIDERS: ADMIT Internal Medicine; ATTEND Internal Medicine
PROC: 4A023N7 Measurement of Cardiac Sampling and Pressure, Left Heart, Percutaneous Approach (ICD-10-PCS; principal; 2020-08-12)
PROC: B2111ZZ Fluoroscopy of Multiple Coronary Arteries using Low Osmolar Contrast (ICD-10-PCS; 2020-08-12)
DX: I25.110 Atherosclerotic heart disease of native coronary artery with unstable angina pectoris (principal); K21.9 Gastro-esophageal reflux disease without esophagitis; I10 Essential (primary) hypertension; E78.5 Hyperlipidemia, unspecified; J45.909 Unspecified asthma, uncomplicated; Z95.5 Presence of coronary angioplasty implant and graft; Z88.5 Allergy status to narcotic agent; Z79.82 Long term (current) use of aspirin; Z79.899 Other long term (current) drug therapy; Z98.51 Tubal ligation status; Z60.2 Problems related to living alone; Z79.891 Long term (current) use of opiate analgesic; Z79.51 Long term (current) use of inhaled steroids
CPT/HCPCS: 36415; 71045; 80048; 80076; 83735; 83880; 84484; 85025; 85610; 93005; 93458; 99285; C1893; G0378; J1644; J2250; J3010; J7040

== ENCOUNTER 2020-09-22 11:02 | Observation (INO) | payer OTHER ==
--- OUTSIDE RECORDS SUMMARY | 2020-09-22 11:11 | XMS REPORT | Clinical Summary ---
:1950 Author Organization [facility] Address [address] [place] [address] Care Team Providers Name Role Phone Jonelle Milian MD Primary Care Provider Allergies Active Allergy Reactions Severity Noted Date Comments Tramadol 12/11/2018 Medications Medication Sig Dispensed Refills Start End Status Date Date cycloSPORINE Place 1 drop 0 Acti ve (RESTASIS) 0.05 % into both eyes ophthalmic emulsion 2 (two) times daily. aspirin 81 MG EC Take 81 mg by 0 Active tablet mouth daily. colchicine (COLCRYS) Take 0.6 mg by 0 07/09/20 Active 0.6 mg tablet mouth daily. 20 albuterol (PROVENTIL) Take 2.5 mg by 0 07/29/20 Active 2.5 mg /3 mL (0.083 %) nebulization 20 nebulizer solution every 6 (six) hours as needed. albuterol HFA Inhale 1 puff 0 08/11/20 Ac tive (VENTOLIN HFA) 90 by mouth via 20 mcg/actuation inhaler inhaler every 6 (six) hours as needed. atorvastatin (LIPITOR) Take 1 tablet 0 08/04/20 Active 80 MG tablet by mouth 20 nightly. Symbicort 160-4.5 Inhale 2 puffs 0 08/04/20 Active mcg/actuation inhaler by mouth via 20 inhaler 2 (two) times daily. losartan (COZAAR) 100 Take 1 tablet 0 07/09/20 Active MG tablet by mouth daily. 20 thyroid, pork, Take 15 mg by 0 A ctive (ARMOUR) 15 mg Tab mouth daily. tablet hydroCHLOROthiazide Take 25 mg by 0 Active (HYDRODIURIL) 25 MG mouth daily. tablet citalopram (CeleXA) 20 Take 1 tablet 30 tablet 0 08/24/2024/11 Active MG tablet (20 mg total) 20 021 by mouth nightly. metoprolol tartrate Take 1 tablet 60 tablet 1 08/24/20 Active (LOPRESSOR) 25 MG (25 mg total) 20 021 tablet by mouth 2 (two) times daily. oxybutynin (DITROPAN) Take 1 tablet 60 tablet 0 08/24/2008/08 Active 5 MG tablet (5 mg total) by 20 021 mouth 2 (two) times daily. ALPRAZolam (XANAX) 2 Take 2 mg by 0 Discontinued MG tablet mouth 3 (three) 020 (Sto p Taking at times daily as Disch arge) needed for Sleep. HYDROcodone-acetaminop Take 1 tablet 0 24/11 Discontinued hen (NORCO 7.5-325) by mouth 2 020 (Stop Taking at 7.5-325 mg per tablet (two) times Discharge) daily as needed for Pain. carvedilol (COREG) 25 Take 25 mg by 0 08/08 04/08 Discontinued MG tablet mouth 2 (two) 020 (Stop Taking at times daily Discharg e) with breakfast and dinner. predniSONE (DELTASONE) Take 20 mg by 0 04/08 Discontinued 20 MG tablet mouth daily. 020 amLODIPine (NORVASC) Take 10 mg by 0 08/24 Discontinued 10 MG tablet mouth daily. 020 (Sto p Taking at Discharge) hydroCHLOROthiazide Take 12.5 mg by 0 08/04/2004/08 Discontinued (HYDRODIURIL) 12.5 MG mouth daily. 20 020 tablet meloxicam (MOBIC) 15 Take 15 mg by 0 07/19/2008/24 Discontinued MG tablet mouth daily. 20 020 (Stop T aking at Discharge) HYDROcodone-acetaminop Take 1 tablet 20 tablet 0 08/24/2004/12 hen (NORCO 7.5-325) by mouth every 20 020 7.5-325 mg per tablet 4 (four) hours as needed for up to 10 days. Max Daily Amount: 6 tablets Active Problems Problem Noted Date S/P CABG x [address] Andujar on 08/17/2020 08/17/2020 Coronary artery disease 08/13/2020 NSTEMI (non-ST elevation myocardial infarction) 2018 Acute respiratory insufficiency Other specified hypotension Acute blood loss anemia Hyperglycemia Encounters Date Type Specialty Care Team Description 09/09/2020 Office Visit Cardiology Bhupendra Andujar Post-operativ e MD [place] (Primary Dx) 09/09/2020 Travel 08/17/2020 Surgery Bhupendra Andujar BYPASS,AORTO MD [place] CORONARY CAREY/SV G 08/17/2020 Anesthesia Event Seema Live M D Rutherford, Lerin Elise 08/16/2020 Orders Only General Internal Medicine 08/13/2020 - Hospital Encounter Cardiology Loaiza, Rakel S/P CABG x 3 (Primary Dx); 08/24/2020 MD Zoey Coronary artery disease involving tetlin coronary artery of tetlin heart without angina pectoris; Jana Garcia Coronary artery disease involving tetlin coronary artery, angina presence unspecified, unspecified whether tetlin or transplanted heart; Bita Encarnacion, NSTEMI (non- ST elevation myocardial infarction) ([facility]) MD Velasco, MD Lilly Dorsey, Earnestine Lobo MD 08/13/2020 Travel 08/12/2020 Documentation Internal Medicine Loaiza, Rakel Greer MD after 09/22/2019 Social History Tobacco Use Types Packs/Day Years Used Date Never Smoker Smokeless Tobacco: Never Used Sex Assigned at Date Recorded Not on file Last Filed Vital Signs Vital Sign Reading Time Taken Comments Blood Pressure 138/75 09/09/2020 1:09 PM [facility] Pulse 84 09/09/2020 1:09 PM [facility] Temperature 37 C (98.6 F) 09/09/2020 1:09 PM [facility] Respiratory Rate 18 09/09/2020 1:09 PM [facility] Oxygen Saturation 98% 09/09/2020 1:09 PM [facility] room a ir Inhaled Oxygen Concentration 40% 08/19/2020 6:00 AM [facility] Weight 88 kg (194 lb) 09/09/2020 1:09 PM [facility] Height 157.5 cm (5' 2") 09/09/2020 1:09 PM [facility] Body Mass Index 35.48 09/09/2020 1:09 PM [facility] Plan of Treatment Health Maintenance Due Date Last Done Comments BREAST CANCER SCREENING 1950 COLON CANCER SCREENING COLONOSCOPY 1950 PNEUMOCOCCAL 65+ YRS (1 of 1 - [id number]) 2014 DEPRESSION SCREENING (12+) 10/08/2019 INFLUENZA VACCINE (#1) 2020 MEDICARE ANNUAL WELLNESS (YEAR 2 or FIRST YEAR if no 06/09/2020 IPPE) Implants Implanted Type Area Gill Box Operator Device Identifier Shelf Model / Expiration Serial / Date Lot Material Bone Hemostasis 2.5g [id number] - [id number] IMPLANTS N/A : SANTIAGO:BIOSCI [id number] 10/07/2024 [id number] / Implanted: Qty: 2 on 08/17/2020 by Bhupendra Montoya MD at [facility] Chest / [id number] W Procedures Procedure Name Priority Date/Time Associated Comments Diagnosis SARS-COV2/RT-PCR Routine 08/24/2020 2:22 Results for this ([facility] & REF LABS) AM [facility] procedure are in the results section. CBC W/PLT COUNT & Routine 08/24/2020 1:12 Result s for this AUTO DIFFERENTIAL AM [facility] procedure are in the results section. BASIC METABOLIC Routine 08/24/2020 1:12 Results for this PANEL (7) AM [facility] procedure are i n the results section. CBC W/PLT COUNT & Routine 08/24/2020 1:12 Result s for this AUTO DIFFERENTIAL AM [facility] procedure are in the results section. CBC W/PLT COUNT & Routine 08/22/2020 9:53 Result s for this AUTO DIFFERENTIAL AM [facility] procedure are in the results section. CBC W/PLT COUNT & Routine 08/22/2020 9:53 Result s for this AUTO DIFFERENTIAL AM [facility] procedure are in the results section. BASIC METABOLIC Routine 08/22/2020 9:53 Results for this PANEL (7) AM [facility] procedure are i n the results section. 2D ECHO W/ DOPPLER Routine 08/20/2020 10:51 Resul ts for this (CW/PW/COLOR) PM [facility] procedure are in the results section. CBC W/PLT COUNT & Routine 08/20/2020 6:24 Result s for this AUTO DIFFERENTIAL AM [facility] procedure are in the results section. CALCIUM, IONIZED Routine 08/20/2020 6:24 Results for this AM [facility] procedure are i n the results section. CBC W/PLT COUNT & Routine 08/20/2020 6:24 Result s for this AUTO DIFFERENTIAL AM [facility] procedure are in the results section. BASIC METABOLIC Routine 08/20/2020 6:24 Results for this PANEL (7) AM [facility] procedure are i n the results section. LACTIC ACID, Routine 08/20/2020 6:24 Results for this ARTERIAL AM [facility] procedure are i n the results section. XR CHEST 1 VIEW Routine 08/20/2020 3:28 Results for this PORTABLE/BEDSIDE AM [facility] procedure a re in the results section. CBC W/PLT COUNT & Routine 08/19/2020 2:44 Result s for this AUTO DIFFERENTIAL PM [facility] procedure are in the results section. LACTIC ACID, VENOUS Routine 08/19/2020 2:44 Resu lts for this PM [facility] procedure are i n the results section. CBC W/PLT COUNT & Routine 08/19/2020 2:44 Result s for this AUTO DIFFERENTIAL PM [facility] procedure are in the results section. CALCIUM, IONIZED Routine 08/19/2020 2:44 Results for this PM [facility] procedure are i n the results section. MAGNESIUM Routine 08/19/2020 2:44 Results for this PM [facility] procedure are i n the results section. PHOSPHORUS Routine 08/19/2020 2:44 Results for this PM [facility] procedure are i n the results section. BASIC METABOLIC Routine 08/19/2020 2:44 Results for this PANEL (7) PM [facility] procedure are i n the results section. XR CHEST 1 VIEW Routine 08/19/2020 1:08 Results for this PORTABLE/BEDSIDE AM [facility] procedure a re in the results section. CBC W/PLT COUNT & Routine 08/18/2020 3:56 Result s for this AUTO DIFFERENTIAL AM [facility] procedure are in the results section. CALCIUM, IONIZED Routine 08/18/2020 3:56 Results for this AM [facility] procedure are i n the results section. CBC W/PLT COUNT & Routine 08/18/2020 3:56 Result s for this AUTO DIFFERENTIAL AM [facility] procedure are in the results section. BASIC METABOLIC Routine 08/18/2020 3:56 Results for this PANEL (7) AM [facility] procedure are i n the results section. LACTIC ACID, Routine 08/18/2020 3:56 Results for this ARTERIAL AM [facility] procedure are i n the results section. BLOOD GAS, ARTERIAL Routine 08/18/2020 3:56 Resu lts for this AM [facility] procedure are i n the results section. PHOSPHORUS Routine 08/18/2020 3:56 Results for this AM [facility] procedure are i n the results section. MAGNESIUM Routine 08/18/2020 3:56 Results for this AM [facility] procedure are i n the results section. XR CHEST 1 VIEW Routine 08/18/2020 1:49 Results for this PORTABLE/BEDSIDE AM [facility] procedure a re in the results section. POCT-GLUCOSE METER Routine 08/17/2020 10:31 Resul ts for this PM [facility] procedure are i n the results section. CBC W/PLT COUNT & STAT 08/17/2020 8:15 Result s for this AUTO DIFFERENTIAL PM [facility] procedure are in the results section. LACTIC ACID, STAT 08/17/2020 8:15 Results for this ARTERIAL PM [facility] procedure are i n the results section. MAGNESIUM STAT 08/17/2020 8:15 Results for this PM [facility] procedure are i n the results section. BASIC METABOLIC STAT 08/17/2020 8:15 Results for this PANEL (7) PM [facility] procedure are i n the results section. CBC W/PLT COUNT & STAT 08/17/2020 8:15 Result s for this AUTO DIFFERENTIAL PM [facility] procedure are in the results section. BLOOD GAS, ARTERIAL STAT 08/17/2020 8:15 Resu lts for this PM [facility] procedure are i n the results section. BLOOD GAS, ARTERIAL STAT 08/17/2020 7:21 Resu lts for this PM [facility] procedure are i n the results section. POCT-GLUCOSE METER Routine 08/17/2020 6:06 Resul ts for this PM [facility] procedure are i n the results section. POCT-GLUCOSE METER Routine 08/17/2020 5:19 Resul ts for this PM [facility] procedure are i n the results section. POCT-GLUCOSE METER Routine 08/17/2020 4:10 Resul ts for this PM [facility] procedure are i n the results section. POCT-GLUCOSE METER Routine 08/17/2020 3:26 Resul ts for this PM [facility] procedure are i n the results section. OXYGEN SATURATION, STAT 08/17/2020 2:09 Resul ts for this MEASURED PM [facility] procedure are i n the results section. LACTIC ACID, STAT 08/17/2020 2:09 Results for this ARTERIAL PM [facility] procedure are i n the results section. XR CHEST 1 VIEW STAT 08/17/2020 2:09 Results for this PORTABLE/BEDSIDE PM [facility] procedure a re in the results section. BLOOD GAS, ARTERIAL STAT 08/17/2020 2:08 Resu lts for this PM [facility] procedure are i n the results section. CBC W/PLT COUNT & STAT 08/17/2020 2:06 Result s for this AUTO DIFFERENTIAL PM [facility] procedure are in the results section. CBC W/PLT COUNT & STAT 08/17/2020 2:06 Result s for this AUTO DIFFERENTIAL PM [facility] procedure are in the results section. PHOSPHORUS STAT Add-on 08/17/2020 2:06 Results for this PM [facility] procedure are i n the results section. MAGNESIUM STAT 08/17/2020 2:06 Results for this PM [facility] procedure are i n the results section. BASIC METABOLIC STAT 08/17/2020 2:06 Results for this PANEL (7) PM [facility] procedure are i n the results section. POCT-ACT Routine 08/17/2020 12:33 Results for this PM [facility] procedure are i n the results section. HGB/HCT (H&H) - STAT STAT 08/17/2020 12:30 Res ults for this LAB PM [facility] procedure are i n the results section. GLUCOSE-STAT LAB STAT 08/17/2020 12:30 Results for this PM [facility] procedure are i n the results section. POTASSIUM-STAT LAB STAT 08/17/2020 12:30 Resul ts for this PM [facility] procedure are i n the results section. SODIUM NA-STAT LAB STAT 08/17/2020 12:30 Resul ts for this PM [facility] procedure are i n the results section. BLOOD GAS, ARTERIAL STAT 08/17/2020 12:30 Resu lts for this PM [facility] procedure are i n the results section. CALCIUM, IONIZED STAT 08/17/2020 12:30 Results for this PM [facility] procedure are i n the results section. BLOOD GAS, ARTERIAL STAT 08/17/2020 12:30 Resu lts for this PM [facility] procedure are i n the results section. POCT-ACT Routine 08/17/2020 11:42 Results for this AM [facility] procedure are i n the results section. HGB/HCT (H&H) - STAT STAT 08/17/2020 11:40 Res ults for this LAB AM [facility] procedure are i n the results section. GLUCOSE-STAT LAB STAT 08/17/2020 11:40 Results for this AM [facility] procedure are i n the results section. POTASSIUM-STAT LAB STAT 08/17/2020 11:40 Resul ts for this AM [facility] procedure are i n the results section. SODIUM NA-STAT LAB STAT 08/17/2020 11:40 Resul ts for this AM [facility] procedure are i n the results section. BLOOD GAS, ARTERIAL STAT 08/17/2020 11:40 Resu lts for this AM [facility] procedure are i n the results section. BLOOD GAS, ARTERIAL STAT 08/17/2020 11:40 Resu lts for this AM [facility] procedure are i n the results section. POCT-ACT Routine 08/17/2020 11:12 Results for this AM [facility] procedure are i n the results section. ANESTHESIA MATT Routine 08/17/2020 11:05 Results f or this AM [facility] procedure are i n the results section. BLOOD GAS, VENOUS Routine 08/17/2020 10:41 Result s for this AM [facility] procedure are i n the results section. HGB/HCT (H&H) - STAT STAT 08/17/2020 10:41 Res ults for this LAB AM [facility] procedure are i n the results section. GLUCOSE-STAT LAB STAT 08/17/2020 10:41 Results for this AM [facility] procedure are i n the results section. POTASSIUM-STAT LAB STAT 08/17/2020 10:41 Resul ts for this AM [facility] procedure are i n the results section. SODIUM NA-STAT LAB STAT 08/17/2020 10:41 Resul ts for this AM [facility] procedure are i n the results section. BLOOD GAS, ARTERIAL STAT 08/17/2020 10:41 Resu lts for this AM [facility] procedure are i n the results section. BLOOD GAS, ARTERIAL STAT 08/17/2020 10:41 Resu lts for this AM [facility] procedure are i n the results section. POCT-ACT Routine 08/17/2020 10:41 Results for this AM [facility] procedure are i n the results section. POCT-ACT Routine 08/17/2020 9:44 Results for this AM [facility] procedure are i n the results section. HGB/HCT (H&H) - STAT Routine 08/17/2020 8:17 Res ults for this LAB AM [facility] procedure are i n the results section. GLUCOSE-STAT LAB Routine 08/17/2020 8:17 Results for this AM [facility] procedure are i n the results section. POTASSIUM-STAT LAB Routine 08/17/2020 8:17 Resul ts for this AM [facility] procedure are i n the results section. SODIUM NA-STAT LAB Routine 08/17/2020 8:17 Resul ts for this AM [facility] procedure are i n the results section. BLOOD GAS, ARTERIAL Routine 08/17/2020 8:17 Resu lts for this AM [facility] procedure are i n the results section. BLOOD GAS, ARTERIAL Routine 08/17/2020 8:17 Resu lts for this AM [facility] procedure are i n the results section. MATT 08/17/2020 7:07 Coronary artery AM [facility] disease involving tetlin heart, angina presence unspecified, unspecified vessel or lesion type ENDOSCOPIC 08/17/2020 7:07 Coronary artery HARVEST,VEIN AM [facility] disease involving tetlin heart, angina presence unspecified, unspecified vessel or lesion type BYPASS,AORTO 08/17/2020 7:07 Coronary artery CORONARY CAREY/SVG AM [facility] disease involving tetlin heart, angina presence unspecified, unspecified vessel or lesion type ECG 12-LEAD Routine 08/16/2020 11:36 PM [facility] Procedure Note - Interface, External Ris In - 08/16/2020 10:38 PM [facility] Ventricular Rate 83 BPM Atrial Rate 83 BPM P-R Interval 202 ms QRS Duration 80 ms Q-T Interval 412 ms QTC Calculation(Bazett) 484 ms P [place] 63 degrees R R[place] -30 degrees T [place] 30 degrees Normal sinus rhythm Possible Left atrial enlarge ment Left axis deviation Prolonged QT Abnormal ECG No previous ECGs available ECG 12-LEAD Routine 08/16/2020 11:36 PM [facility] Resu lts for this procedure are i n the results section . HC CAROTID DOPPLER TRINITY STAT 08/16/2020 11:26 PM [facility] Results for this procedure are i n the results section . HC VENOUS DOPPLER EXT TRINITY STAT 08/16/2020 10:49 PM [facility] Results for this procedure are i n the results section . CBC W/PLT COUNT & AUTO Routine 08/16/2020 9:31 PM [facility] Results for this DIFFERENTIAL procedure are i n the results section . ABORH, MANUAL STAT 08/16/2020 9:31 PM [facility] Res ults for this procedure are i n the results section . APTT Routine 08/16/2020 9:31 PM [facility] Resu lts for this procedure are i n the results section . PROTHROMBIN TIME/INR Routine 08/16/2020 9:31 PM [facility] Results for this procedure are i n the results section . CBC W/PLT COUNT & AUTO Routine 08/16/2020 9:31 PM [facility] Results for this DIFFERENTIAL procedure are i n the results section . LIPID PANEL Routine 08/16/2020 9:31 PM [facility] Resu lts for this procedure are i n the results section . HEMOGLOBIN A1C Routine 08/16/2020 9:31 PM [facility] Re sults for this procedure are i n the results section . COMPREHENSIVE METABOLIC Routine 08/16/2020 9:31 PM [facility] Results for this PANEL procedure are i n the results section . MAGNESIUM Routine 08/16/2020 9:31 PM [facility] Resu lts for this procedure are i n the results section . TYPE AND SCREEN, AUTOMATED Routine 08/16/2020 9:12 PM [facility] Results for this procedure are i n the results section . 2D ECHO W/ DOPPLER LIONEL 08/15/2020 4:50 PM [facility] Results for this (CW/PW/COLOR) procedure are in the results section . SARS-COV2/RT-PCR (SLHS & REF Routine 08/14/2020 4:50 AM [facility] Results for this LABS) procedure are i n the results section . CBC W/PLT COUNT & AUTO Routine 08/14/2020 4:46 AM [facility] Results for this DIFFERENTIAL procedure are i n the results section . PROTHROMBIN TIME/INR Routine 08/14/2020 4:46 AM [facility] Results for this procedure are i n the results section . CBC W/PLT COUNT & AUTO Routine 08/14/2020 4:46 AM [facility] Results for this DIFFERENTIAL procedure are i n the results section . MAGNESIUM Routine 08/14/2020 4:46 AM [facility] Resu lts for this procedure are i n the results section . HEPATIC FUNCTION PANEL Routine 08/14/2020 4:46 AM [facility] Results for this procedure are i n the results section . BASIC METABOLIC PANEL (7) Routine 08/14/2020 4:46 AM [facility] Results for this procedure are i n the results section . CT BRAIN WITHOUT IV CONTRAST STAT 08/14/2020 4:20 AM [facility] Results for this procedure are i n the results section . REPORT OF PROCEDURE - 08/13/2020 Result s for this ENDOSCOPY SCAN procedure are in the results section . after 09/22/2019 Results SARS-CoV2/RT-PCR (Asymptomatic ONLY) (08/24/2020 2:22 AM [facility])Only the most recent of2 resultswithin the time period is included. SARS-COV2/RT-PCR Negative Not Detected, RYANN BURNHAM Negative, See [facility] external report CENTER for linked test SARS-COV-2 [facility] LUPE BURNHAM PERFORMING LAB [facility] Specimen Other - Nasopharyngeal wall structure (b govind structure) Narrative Performed At Negative result for this test determines that [facility] SARS-CoV-2 RNA was not present in the specimen above the Limit of Detection (LOD). However, Negative results do not preclude SARS-CoV-2 infection and should not be used as the sole basis for treatment or patient management decisions. Negative results must be combined with clinical observations, patient history, and epidemiological information. A false negative result may occur if a specimen is improperly collected, transported or handled. A false negative result should be considered if patient's recent exposures or clinical presentation indicate that COVID-19 (SARS-CoV-2) is likely and diagnostic tests for other causes of illness are negative. Re-testing should be considered in cases of suspected false negatives. The limit of detection for this assay is 800 copies/mL. This SARS CoV-2 test is a real-time RT-PCR test intended for the qualitative detection of nucleic acid from SARS-CoV-2 in a nasopharyngeal swab specimen collected from individuals suspected of COVID-19 by their healthcare provider. This test has not been Food and Drug Administration (FDA) cleared or approved. This is a modified version of an approved Emergency Use Authorization (EUA) and is in the process of review by the FDA. Once authorized by the FDA, the issued EUA will be effective until the declaration that circumstances exist justifying the authorization of the emergency use of in vitro diagnostic tests for detection and/or diagnosis of COVID-19 is terminated under Section 564(b)(2) of the Act or the EUA is revoked under Section 564(g) of the Act. Fact Sheet for Healthcare Providers: https://www.Gobooks.com/sites/default/files/pro duct/documents/Fact_Sheet_HC_Providers_Lyra_SA RS-CoV-2.pdf Fact Sheet for Healthcare Patients: https://www.Gobooks.com/sites/default/files/pro duct/documents/Fact_Sheet_Patients_Lyra_SARS-C oV-2.pdf Performing Laboratory: [facility] [address] [place] [address] Performing Organization Address City/State/Zipcode Phone Number [facility] [address] [place] [address] CENTER CBC with platelet count + automated diff (08/24/2020 1:12 AM [facility])Only the most recent of9 resultswithin the time period is included. Pathologist Sig nature WBC 7.7 3.5 - 10.5 [facility] K/L [facility] RBC 2.75 (L) 3.93 - 5.22 [facility] M/L [facility] Hemoglobin 8.0 (L) 11.2 - 15.7 [facility] GM/DL [facility] Hematocrit 25.0 (L) 34.1 - 44.9 % [facility] MCV 90.9 79.4 - 94.8 fL [facility] MCH 29.1 25.6 - 32.2 pg [facility] MCHC 32.0 (L) 32.2 - 35.5 [facility] GM/[facility] RDW 13.9 11.7 - 14.4 % [facility] Platelets 256 150 - 450 K/CU [facility] MPV 10.1 9.4 - 12.3 fL [facility] nRBC 0 0 - 0 /100 WBC [facility] % Neutros 69 % [facility] % Lymphs 19 % [facility] % Monos 10 % [facility] % Eos 1 % [facility] % Baso 0 % [facility] # Neutros 5.33 1.56 - 6.13 [facility] # Lymphs 1.48 1.18 - 3.74 [facility] # Monos 0.73 (H) 0.24 - 0.36 [facility] K/L [facility] # Eos 0.08 0.04 - 0.36 [facility]/L [facility] # Baso 0.03 0.01 - 0.08 [facility]/L [facility] Immature 1 0 - 1 % [facility] Granulocytes-Relative [facility] Specimen Blood Performing Organization Address City/State/Zipcode Phone Number [facility] [address] [place] [address] CENTER Basic Metabolic Panel (08/24/2020 1:12 AM [facility])Only the most recent of8 results within the time period is included. Sodium 138 136 - 145 meq/L [facility] Potassium 3.8 3.5 - 5.1 meq/L [facility] Chloride 104 98 - 107 meq/L [facility] CO2 26 22 - 29 meq/L [facility] BUN 9 7 - 21 mg/dL [facility] Creatinine 0.66 0.57 - 1.25 [facility] mg/dL [facility] Glucose 110 (H) 70 - 105 mg/dL [facility] Calcium 8.9 8.4 - 10.2 [facility] mg/dL [facility] EGFR 107Comment: mL/min/1.73 sq [facility] ESTIMATED GFR IS NOT [facility] ACCURATE CENTER CREATININE CLEARANCE IN PREDICTING GLOMERULAR FILTRATION RATE. ESTIMATED GFR IS NOT APPLICABLE FOR DIALYSIS PATIENTS. Specimen Blood Narrative Performed At [facility] ICAL CENTER Performing Organization Address City/State/Zipcode Phone Number [facility] [address] [place] [address] CENTER 2D Echo W/Doppler(CW/PW/Color) (08/20/2020 10:51 PM [facility]) Pathologist Sig nature Ejection Fraction [facility] ECHO HEARTLAB [facility] Specimen Narrative Performed At Transthoracic Echocardiography Report (T TE) [facility] ECHO HEARTLAB [facility] Demographics Patient Name STEW, Date of Study 08/20/2020 COLE Gender Female Visit Number [id number] Race Black Room Number [id number] Number Date of 1950 Referring Physician Jonathan Ragland MD Age 69 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 Clinical History Coronary Artery Disease, CAB #3, PCI, HT TN, NSTEMI Height: 62 inches Weight: 100.7 kg (222 lbs) BSA: 2 m^2 BMI: 40.6 kg/m^2 HR: 94 bpm BP: 141/79 mmHg Summary 1. The left ventricle is chamber size (by vol index) is small. Mild concentric LV hypertrophy. All of the LV segments contract normally . LVEF by Gipson's method of disk assessment is normal (>60%). Diastolic dysfunction is likely due to concomitant heart disease. LA size is mildly enlarged (35-41 ml/m2) . 2. The right ventricular chamber size and systolic function appears within normal limits. RA cavity size is normal. Estimated peak systolic PA pressure is 30-35 mmHg (normal range) . 3. Mild tricuspid regurgitation. Previous Study In comparison with the prior exam on 08-15-20 there are no significant changes. Signature Findings Left Ventricle The left ventricle is chamber size (by vol index) is s mall. Mild concentric LV hypertrophy. All of the LV segments contract normally . Global LV systolic function normal . LVEF by Gipson's method of disk assessment is normal (>60%) . The LVEF was measured using Gipson's bi-plane method of disk . Diastolic dysfunction is likely due to concomitant hear t disease. Left Atrium LA size is mildly enlarged (35-41 ml/m2) . Right Ventricle The right ventricular chamber size and systolic function appears within normal limits. Right Atrium RA cavity size is normal . Aortic Valve Mild AoV cusp thickening. AoV cusp mobility is normal . Mitral Valve Mild MV leaflet thickening. Trace mitral regurgitation. Tricuspid Valve Mild tricuspid regurgitation. Estimated peak systolic PA pressure is 30-35 mmHg (normal range) . Pulmonic Valve Normal PV structure and function. Aorta Aortic root size (SInus of Valsalva diameter) is normal . Proximal ascending aorta size is normal . Pericardium A trivial pericardial effusion is present . IVC/SVC/PA/PV/Pleural The estimated RA pressure by IVC dynamics 5-10mmHg . Chambers/Structures Left Atrium LA Volume: 80.89 ml LA Area: 20.33 cm^2 LA Vol. Index: 40 ml/m^2 Left Ventricle LVIDd: 3.84 cm LV Septum Diastolic: 1.31 cm LV PW Diastolic: 1.34 cm LVEDV Gipson's:49.08 ml LV Length: 7.28 cm LVESV Gipson's:15.03 ml LVEF Gipson's: 69.4 % LVEDVI: 25 ml/m^2 LVESVI: 8 ml/m^2 LVOT Diameter: 2.08 cm Aorta Ao Root S of Vannessa.: 3.21 cm Ascending Aorta: 3.49 cm Doppler/Quantitative Measurements Mitral Valve MV Peak E-Wave: 0.97 m/s MV Peak A-Wave: 0.75 m/s E/A Ratio: 1.3 Peak Gradient: 3.76 mmHg Deceleration Time: 171.5 msec MV Giuseppe. Peak: Tissue Doppler E' Septal Velocity: 0.08 m/s E/E': 11.73 E' Lateral Velocity: 0.08 m/s Aortic Valve Peak Velocity: 1.45 m/s Mean Velocity: 1.07 m/s Peak Gradient: 8.45 mmHg Mean Gradient: 4.96 mmHg AV Area (continuity): 2.31 cm^2 AV VTI: 27.48 cm AV DVI: 0.68 LVOT Peak Velocity: 1.11 m/s Peak Gradient: 4.94 mmHg Mean Velocity: 0.79 m/s Mean Gradient: 2.86 mmHg LVOT Diameter: 2.08 cm LVOT VTI: 18.69 cm LVOT Area: 3.4 cm^2 LVOT SV:63.48 ml LVOT CO: 5.97 l/min LVOT CI: 2.98 l/min/m^2 Tricuspid Valve TR Velocity: 2.55 m/s TR Gradient: 26 mmHg Procedure Note Interface, External Ris In - 08/21/2020 10:36 AM [facility] Transthoracic Echocardiography Report (TTE) Demographics Patient Name STEW, Date of Study 08/20/2020 COLE Gender Female Visit Number [id number] Race Black Room Num [place] [id number] Number Date of 1950 Referrin bettie Physician Jonathan Ragland MD Age 69 year(s) Sonograp her Juice Vargas System Administration Advisor Izkathrine N. Interpre catherine Murphy MD [place] Physicia n Procedure Type of Study TTE procedure:2DECHO W DOPPLE R(CW/PW/COLOR) (Routine) Indications:Acute Chest Pain/ Suspected CAD. Clinical History Coronary Artery Disease, CAB #3, PCI, HT TN, NSTEMI Height: 62 inches Weight: 100.7 kg (222 lbs) BSA: 2 m^2 BMI: 40.6 kg/m^2 HR: 94 bpm BP: 141/79 mmHg Summary 1. The left ventricle is chamber size ( by vol index) is small. Mild concentric LV hypertrophy. All of the L V segments contract normally . LVEF by Gipson's method of disk assessment is normal (>60%). Diastolic dysfunction is likely due to concomitan t heart disease. LA size is mildly enlarged (35-41 ml/m2) . 2. The right ventricular chamber size a nd systolic function appears within normal limits. RA cavity size is normal . Estimated peak systolic PA pressure is 30-35 mmHg (normal range) . 3. Mild tricuspid regurgitation. Previous Study In comparison with the prior exam on there are no significant changes. Signature Findings Left Ventricle The left ventric le is chamber size (by vol index) is small. Mild concentric LV hypertrophy. All of the LV se gments contract normally . Global LV systol ic function normal . LVEF by Gipson' s method of disk assessment is normal (>60%) . The LVEF was jory sured using Gipson's bi-plane method of disk . Diastolic dysfun ction is likely due to concomitant heart disease. Left Atrium LA size is mildl y enlarged (35-41 ml/m2) . Right Ventricle The right ventri cular chamber size and systolic function appears within normal limits. Right Atrium RA cavity size i s normal . Aortic Valve Mild AoV cusp th ickening. AoV cusp mobilit y is normal . Mitral Valve Mild MV leaflet thickening. Trace mitral reg urgitation. Tricuspid Valve Mild tricuspid r egurgitation. Estimated peak s ystolic PA pressure is 30-35 mmHg (normal range) . Pulmonic Valve Normal PV struct ure and function. Aorta Aortic root size (SInus of Valsalva diameter) is normal . Proxima l ascending aorta size is normal . Pericardium A trivial perica rdial effusion is present . IVC/SVC/PA/PV/Pleural The estimated RA pressure by IVC dynamics 5-10mmHg . Chambers/Structures Left Atrium LA Volume: 80.89 ml LA Area: 20.33 cm^2 LA Vol. Index: 40 ml/m^2 Left Ventricle LVIDd: 3.84 cm LV Septum Diastolic: 1.31 cm LV PW Diastolic: 1.34 cm LVEDV Gipson's:49.08 ml LV Length: 7.28 cm LVESV Gipson's:15.03 ml LVEF Gipson's: 69.4 % LVEDVI: 25 ml/m^2 LVESVI: 8 ml/m^2 LVOT Diameter: 2.08 cm Aorta Ao Root S of Vannessa.: 3.21 cm Ascending Aorta: 3.49 cm Doppler/Quantitative Measurements Mitral Valve MV Peak E-Wave: 0.97 m/s M V Peak A-Wave: 0.75 m/s E /A Ratio: 1.3 P eak Gradient: 3.76 mmHg D eceleration Time: 171.5 msec MV Giuseppe. Peak: Tissue Doppler E' Septal Velocity: 0.08 m/s E /E': 11.73 E' Lateral Velocity: 0.08 m/s Aortic Valve Peak Velocity: 1.45 m/s Mean Velocity: 1.07 m/s Peak Gradient: 8.45 mmHg Mean Gradient: 4.96 mmHg AV Area (continuity): 2.31 cm^2 AV VTI: 27.48 cm AV DVI: 0.68 LVOT Peak Velocity: 1.11 m/s Pea k Gradient: 4.94 mmHg Mean Velocity: 0.79 m/s Jory n Gradient: 2.86 mmHg LVOT Diameter: 2.08 cm LVO T VTI: 18.69 cm LVOT Area: 3.4 cm^2 LVO T SV:63.48 ml LVOT CO: 5.97 l/min LVO T CI: 2.98 l/min/m^2 Tricuspid Valve TR Velocity: 2.55 m/s TR Gradient: 26 mmHg Performing Organization Address [facility] Phone Number [facility] ECHO HEARTLAB [facility] Calcium, Ionized (08/20/2020 6:24 AM [facility])Only the most recent of4 resultswithin the time period is included. Pathologist Sig nature Calcium, Ion 1.12 1.12 - 1.27 mmol/L [facility] pH, Blood 7.41 [facility] Specimen Blood Performing Organization Address City/[facility] Phone Number [facility] [address] [place] [address] CENTER Lactic Acid, Arterial (08/20/2020 6:24 AM [facility])Only the most recent of4 results within the time period is included. Pathologist Sig nature Lactate, Art 1.5 0.5 - 2.2 mmol/L [facility] Specimen Blood, Arterial Narrative Performed At [facility] ID - DB [facility] Performing Organization Address City/State/Zipcode Phone Number [facility] [address] [place] [address] CENTER XR chest 1 view portable / bedside (08/20/2020 3:28 AM [facility])Only the most recent of4 resultswithin the time period is included. Specimen Narrative Performed At FINAL REPORT GE [facility] Chest one view. Clinical history: Status post CV Surgery Comparison: Chest radiograph 08/19/2020. Technique: A single frontal view of the chest was obtained. Findings: The patient is status post median sterno alejandro and cardiac surgery. The cardiomediastinal contours are stabl e. There are diffuse bilateral airspace opacities, mildly dec reased. There are small bilateral pleural effusions. There is no pneumothorax. Signed: Santosh Grullon MD Report Verified Date/Time: 08/20/2020 06:22:53 Procedure Note Interface, External Ris In - 08/20/2020 6:25 AM [facility] FINAL REPORT Chest one view. Clinical history: Status post CV Surgery Comparison: Chest radiograph 08/19/2020. Technique: A single frontal view of the chest was obtained. Findings: The patient is status post median sterno alejandro and cardiac surgery. The cardiomediastinal contours are stabl e. There are diffuse bilateral airspace opacities, mildly dec reased. There are small bilateral pleural effusions. There is no pneumothorax. Signed: Santosh Grullon MD Report Verified Date/Time: 08/20/2020 0 6:22:53 Performing Organization Address City/State/Zipcode Phone Number GE RIS Lactic acid, venous (08/19/2020 2:44 PM [facility]) Lactate, Venous 3.11 (H)Comment: 0.50 - 2.20 [facility] Specimen slightly mmol/L [facility] hemolyzed [place] Specimen Blood Narrative Performed At [facility] ID - [facility] Performing Organization Address [facility] Phone Number [address] [address] CENTER Phosphorus (08/19/2020 2:44 PM [facility])Only the most recent of3 resultswithin the time period is included. Pathologist Sig nature Phosphorus 2.2 (L) 2.3 - 4.7 mg/dL [facility] Specimen Blood Narrative Performed At [facility] ID - [facility] Performing Organization Address [facility] Phone Number [address] [address] CENTER Magnesium (08/19/2020 2:44 PM [facility])Only the most recent of6 resultswithin the time period is included. Pathologist Sig nature Magnesium 2.0 1.6 - 2.6 mg/dL [facility] Specimen Blood Narrative Performed At [facility] ID - [facility] Performing Organization Address [facility] Phone Number [address] [address] [place] Blood gas, arterial (08/18/2020 3:56 AM [facility])Only the most recent of8 results within the time period is included. Pathologist Sig nature pH, Arterial 7.42 7.35 - 7.45 [facility] pCO2, Arterial 35 35 - 45 mm Hg [facility] pO2, Arterial 86 80 - 90 mm Hg [facility] O2 Sat, Arterial 96.8 96.0 - 97.0 % [facility] HCO3, Arterial 22 21 - 29 mmol/L [facility] Base Excess, Arterial -1.7 -2.0 - 3.0 [facility] HEAL H mmol/L [facility] Patient Temperature 36.9 [facility] FIO2 32.0 [facility] Specimen Blood, Arterial Performing Organization Address City/[facility]/Zipcode Phone Number [address] [address] [place] POC-Glucose meter (08/17/2020 10:31 PM [facility])Only the most recent of5 results within the time period is included. POC-Glucose Meter 123 (H) 70 - 110 mg/dL [facility] Comment: [facility] : TESTED AT [address], [address] MEDICAL CENTER : [facility]/Aviation Electronics Technician ID = [id number] for ZACARIAS BOWMAN Specimen Blood Performing Organization Address [facility] Phone Number [address] [address] [place] Oxygen saturation, measured (08/17/2020 2:09 PM [facility]) Pathologist Sig nature O2 Saturation (Measured) 66.4 % [facility] Specimen Blood Performing Organization Address [facility] Centercode Phone Number [address] [address] [place] POC ACTIVATED CLOTTING TIME (08/17/2020 12:33 PM [facility])Only the most recent of5 resultswithin the time period is included. Activated Clotting 92 sec [facility]' Time Comment: [facility] : 74-137 seconds, Baseline CENTER : TESTED AT [address], [address] : [facility]/Aviation Electronics Technician ID = [id number] for BHUPENDRA WU Specimen Blood Performing Organization Address [facility] Centercode Phone Number [address] [address] CENTER Potassium-Stat Lab (08/17/2020 12:30 PM [facility])Only the most recent of4 results within the time period is included. Pathologist Sig nature Potassium 5.0 3.6 - 5.5 meq/L [facility] Specimen Blood, Arterial Performing Organization Address City/[facility] [place] [address] [place] Sodium Na-Stat Lab (08/17/2020 12:30 PM [facility])Only the most recent of4 results within the time period is included. Pathologist Sig nature Sodium 133 (L) 136 - 145 meq/L [facility] Specimen Blood, Arterial Performing Organization Address City/[facility] Phone Number [place] [phone] [place] Glucose-Stat Lab (08/17/2020 12:30 PM [facility])Only the most recent of4 resultswithin the time period is included. Pathologist Sig nature Glucose 206 (H) 70 - 110 mg/dL [facility] Specimen Blood, Arterial Performing Organization Address [facility] [place] [address] [place] HGB/HCT (H&H)-Stat Lab (08/17/2020 12:30 PM [facility])Only the most recent of4 resultswithin the time period is included. Pathologist Sig nature Hemoglobin 8.4 (L) 12.0 - 15.0 GM/DL [facility] Hematocrit 25.0 (L) 36.0 - 45.0 % [facility] Specimen Blood, Arterial Performing Organization Address City/[facility] [place] [address] [place] MATT (08/17/2020 11:05 AM [facility]) Narrative Performed At Seema iLve MD 08/17/2020 12:34 PM MATT Date: 08/17/2020 12:33 PM Sex: Female Location: OR Req uesting Physician: Bhupendra Andujar MD Examiner: Seema Live MD Duong, Kevin Win Indication: CMP Intub ated Sedated Patient screened for esoph disease: Yes Insertion: easy Probe Type: multiplane Modalities: 2D, CFM, CWD, Contrast and P WD Inotrope: NO Pre Intervention Summary: Aorta: No aneu rysm, no dissection, no mobile plaques AV: trileaflet morphology, no aortic s tenosis, no aortic regurgitation LV: normal chamber size , mild LVH, norm al systolic function (EF 50% by qualitative assessment), no RWMA, no thr ombus. Grade I diastolic dysfunction (E/E' 5.8, E/A 0.8, lat E', PV S<D) MV: normal morphology, trace mitral regu rgitation, no mitral stenosis LA: no PURA thrombus, normal size and fun ction PV: limited visualization RV: normal sized chamber, normal functio n, no thrombus TV: normal morphology, trace tricuspid r egurgitation RA: no thrombus No PFO by color dopper flow All findings communicated to surgical te am. Post Intervention Summary: Blood gas, venous (08/17/2020 10:41 AM [facility]) Pathologist Sig nature pH, [place] 7.35 7.32 - 7.42 [facility] pCO2, [place] 44 41 - 51 mm Hg [facility] pO2, [place] 44 (H) 25 - 40 mm Hg [facility] O2 Sat, [place] 84.4 (H) 40.0 - 70.0 % [facility] HCO3, [place] 25 21 - 29 mmol/L [facility] Base Excess, [place] -1.9 -2.0 - 3.0 [facility] mmol/L [facility] Patient Temperature 34.0 [facility] FIO2 60.0 [facility] Specimen Blood Performing Organization Address City/State/Zipcode Phone Number [facility] [address] [place] [address] CENTER Electrocardiogram, 12-lead (08/16/2020 11:36 PM [facility]) Specimen Narrative Performed At This result has an attachment that is no t available. Ventricular Rate 83 BPM GE MUSE Atrial Rate 83 BPM P-R Interval 202 ms QRS Duration 80 ms Q-T Interval 412 ms QTC Calculation(Bazett) 484 ms P Rosharon 63 degrees R Rosharon -30 degrees T Rosharon 30 degrees Normal sinus rhythm Possible Left atrial enlargement Left axis deviation Nonspecific T wave abnormality Prolonged QT Abnormal ECG No previous ECGs available Confirmed by MD DELUCA YOCHAI ([id number]) on 08/17/2020 1:48:32 PM Procedure Note Interface, External Ris In - 08/17/2020 1:48 PM [facility] Ventricular Rate 83 BPM Atrial Rate 83 BPM P-R Interval 202 ms QRS Duration 80 ms Q-T Interval 412 ms QTC Calculation(Bazett) 484 ms P Rosharon 63 degrees R Rosharon -30 degrees T Rosharon 30 degrees Normal sinus rhythm Possible Left atrial enlargement Left axis deviation Nonspecific T wave abnormality Prolonged QT Abnormal ECG No previous ECGs available Confirmed by MD DELUCA YOCHAI ([id number]) on 08/17/2020 1:48:32 PM Performing Organization Address City/State/Zipcode Phone Number GE MUSE Carotid doppler bilateral (08/16/2020 11:26 PM [facility]) Pathologist Sig nature Ejection Fraction [facility] ECHO HEARTLAB [facility] Specimen Impressions Performed At Right Impression [facility] 1. There is <50% diameter reduction (approximately 20% by 2-D measurement) in the internal carotid artery with a peak velocity of 75.6/30.5 cm/sec and heterogeneous plaque. 2. There is non-occluding plaque in the external carotid artery. 3. There is non-occluding plaque in the common carotid artery. 4. The vertebral artery flow is antegrade and normal. 5. The subclavian artery is within normal limits where visualized. Left Impression 1. There is <50% diameter reduction (approximately 15% by 2-D measurement) in the internal carotid artery with a peak velocity of 42.0/17.7 cm/sec and heterogeneous plaque. 2. There is non-occluding plaque in the external carotid artery. 3. There is non-occluding plaque in the common carotid artery. 4. The vertebral artery flow is antegrade and normal. 5. The subclavian artery is within normal limits where visualized. Conclusions Summary Carotid duplex scanning and color flow imaging were performed bilaterally. The arteries were adequately visualized. The bilateral internal carotid arteries had <50% hemodynamically insignificant stenosis (approximately 20% by 2-D measurement on the right, approximately 15% by 2-D measurement on the left) with heterogeneous plaque. The vertebral artery flow was antegrade and normal bilaterally. The subclavian arteries were patent with normal flow bilaterally where visualize d. Signature Velocities are measured in cm/s ; Diameters are measured in cm Carotid Right Measurements + +----+----+-----+ +---- + + !Location !PSV !EDV !Angle!%Stenosis 2D!%Stenosis Doppler!Tortuosity ! + +----+----+-----+ +---- + + !Prox CCA !72.7!26.4!60 ! ! ! ! + +----+----+-----+ +---- + + !Dist CCA !90.3!32.8!60 ! ! ! ! + +----+----+-----+ +---- + + !Prox ICA !75.6!30.5!60 !20% !<50% ! ! + +----+----+-----+ +---- + + !Dist ICA !48.4!21.1!0 ! ! ! ! + +----+----+-----+ +---- + + !Prox ECA !85.6!18.8!60 ! ! ! ! + +----+----+-----+ +---- + + !Vertebral !42.8!18.9!60 ! ! ! ! + +----+----+-----+ +---- + + !Prox Subclavian!151 ! !60 ! ! ! ! + +----+----+-----+ +---- + + - There is antegrade vertebral flow noted on the right side. - Additional Measurements:ICAPSV/CCAPSV 0.84.ICAEDV/CCAEDV 1.16. Carotid Left Measurements + +----+----+-----+ +---- + + !Location !PSV !EDV !Angle!%Stenosis 2D!%Stenosis Doppler!Tortuosity ! + +----+----+-----+ +---- + + !Prox CCA !82.7!23.5!60 ! ! ! ! + +----+----+-----+ +---- + + !Dist CCA !77.4!26.4!60 ! ! ! ! + +----+----+-----+ +---- + + !Prox ICA !42 !17.7!60 !15% !<50% ! ! + +----+----+-----+ +---- + + !Dist ICA !101 !41.6!60 ! ! ! ! + +----+----+-----+ +---- + + !Prox ECA !81.5!19.3!60 ! ! ! ! + +----+----+-----+ +---- + + !Vertebral !55 !22 !60 ! ! ! ! + +----+----+-----+ +---- + + !Prox Subclavian!120 ! !60 ! ! ! ! + +----+----+-----+ +---- + + - There is antegrade vertebral flow noted on the left side. - Additional Measurements:ICAPSV/CCAPSV 1.3.ICAEDV/CCAEDV 1.77. Narrative Performed At LAB - Carotid Duplex Study [facility]ART[facility] Demographics Patient Name COLE MATHIAS Date of Study 08/16/2020 Age 69 Visit Number [id number] Gender Female Accession Number [id number] Date of 1950 Referring Johnny GalvezRose Room [facility] MD Rod Special Services Agent Daniel Duran Interpreting Rakel Araujo, Physician Procedure Type of Study: Cerebral: Carotid, CAROTID DOPPLER, TRINITY ATERAL. Indications for Study:Pre-op CABG. Patient Status:STAT. Study Location:Portable. Technical Quality:Adequate visualization . Risk Factors History of Disease + +----+ + !Diagnosis !Date!Comments ! + +----+ + !History/Risk Factors: ! !CAD, HTN, Recent Trauma, Morbid Obesity ! + +----+ + Procedure Note Interface, External Ris In - 08/17/2020 7:59 AM [facility] PV LAB - Carotid Duplex Study Demographics Patient Name COLE MATHIAS Da te of Study 08/16/2020 Ag e 69 Visit Number [id number] Ge nder Female Accession Number [id number] Da te of 1950 Referring Johnny GalvezRose Ro om Number [facility] Physician Rod MD Special Services Agent Daniel Duran In terpreting Rakel Araujo, Ph ysician Procedure Type of Study: Cerebral: Carotid, CAROTID DOPPLER, TRINITY ATERAL. Indications for Study:Pre-op CABG. Patient Status:STAT. Study Location:Portable. Technical Quality:Adequate visualization . Risk Factors History of Disease + +----+ + !Diagnosis !Date!Comments ! + +----+ + !History/Risk Factors: ! !CAD, HTN, R ecent Trauma, Morbid Obesity ! + +----+ + Impressions Right Impression 1. There is <50% diameter reduction (krystal roximately 20% by 2-D measurement) in the internal carotid artery with a pe ak velocity of 75.6/30.5 cm/sec and heterogeneous plaque. 2. There is non-occluding plaque in the external carotid artery. 3. There is non-occluding plaque in the common carotid artery. 4. The vertebral artery flow is antegrad e and normal. 5. The subclavian artery is within lanette l limits where visualized. Left Impression 1. There is <50% diameter reduction (krystal roximately 15% by 2-D measurement) in the internal carotid artery with a pe ak velocity of 42.0/17.7 cm/sec and heterogeneous plaque. 2. There is non-occluding plaque in the external carotid artery. 3. There is non-occluding plaque in the common carotid artery. 4. The vertebral artery flow is antegrad e and normal. 5. The subclavian artery is within lanette l limits where visualized. Conclusions Summary Carotid duplex scanning and color flow imaging were performed bilaterally. The arteries were adequately visualized . The bilateral internal carotid arteries had <50% hemodynamically insig nificant stenosis (approximately 20% by 2-D measurement on the right, ap proximately 15% by 2-D measurement on the left) with heterogeneous plaque. The vertebral artery flow was antegrade and normal bilaterally. The s ubclavian arteries were patent with normal flow bilaterally where visualize d. Signature Velocities are measured in cm/s ; Diamet ers are measured in cm Carotid Right Measurements + +----+----+-----+------- -----+ + + !Location !PSV !EDV !Angle!%Stenos is 2D!%Stenosis Doppler!Tortuosity ! + +----+----+-----+------- -----+ + + !Prox CCA !72.7!26.4!60 ! ! ! ! + +----+----+-----+------- -----+ + + !Dist CCA !90.3!32.8!60 ! ! ! ! + +----+----+-----+------- -----+ + + !Prox ICA !75.6!30.5!60 !20% !<50% ! ! + +----+----+-----+------- -----+ + + !Dist ICA !48.4!21.1!0 ! ! ! ! + +----+----+-----+------- -----+ + + !Prox ECA !85.6!18.8!60 ! ! ! ! + +----+----+-----+------- -----+ + + !Vertebral !42.8!18.9!60 ! ! ! ! + +----+----+-----+------- -----+ + + !Prox Subclavian!151 ! !60 ! ! ! ! + +----+----+-----+------- -----+ + + - There is antegrade vertebral flow no benoit on the right side. - Additional Measurements:ICAPSV/CCAPS V 0.84.ICAEDV/CCAEDV 1.16. Carotid Left Measurements + +----+----+-----+------- -----+ + + !Location !PSV !EDV !Angle!%Stenos is 2D!%Stenosis Doppler!Tortuosity ! + +----+----+-----+------- -----+ + + !Prox CCA !82.7!23.5!60 ! ! ! ! + +----+----+-----+------- -----+ + + !Dist CCA !77.4!26.4!60 ! ! ! ! + +----+----+-----+------- -----+ + + !Prox ICA !42 !17.7!60 !15% !<50% ! ! + +----+----+-----+------- -----+ + + !Dist ICA !101 !41.6!60 ! ! ! ! + +----+----+-----+------- -----+ + + !Prox ECA !81.5!19.3!60 ! ! ! ! + +----+----+-----+------- -----+ + + !Vertebral !55 !22 !60 ! ! ! ! + +----+----+-----+------- -----+ + + !Prox Subclavian!120 ! !60 ! ! ! ! + +----+----+-----+------- -----+ + + - There is antegrade vertebral flow no benoit on the left side. - Additional Measurements:ICAPSV/CCAPS V 1.3.ICAEDV/CCAEDV 1.77. Performing Organization Address City/State/Zipcode Phone Number [facility] Vein Mapping Legs Bilateral (08/16/2020 10:49 PM ADVENTURE GUIDE) [facility] nature Ejection Fraction [facility] ECHO HEARTWhitcomb Law PC [facility] Specimen Impressions Performed At Right Impression [facility] [employer] [facility] 1. There is no deep venous venous obstruction in the common femoral, profunda femoral, femoral, popliteal, posterior tibial or peroneal veins. 2. There is no superficial venous obstruction in the great saphenous vein. 3. Varicose veins noted in the great saphenous and lesser saphenous veins of the right lower extremity. Left Impression 1. There is no deep venous venous obstruction in the common femoral, profunda femoral, femoral, popliteal, posterior tibial or peroneal veins. 2. There is no superficial venous obstruction in the great saphenous vein. 3. Varicose veins noted in the great saphenous and lesser saphenous veins of the left lower extremity. Conclusions Summary Venous duplex imaging and compression of the bilateral lower extremities was performed. The veins were adequately visualized. The bilateral venous systems were patent and compressible with no evidence of thrombus. Superficial venous measurements are documented below. Varicose veins noted in the great saphenous and lesser saphenous veins of the bilateral lower extremities. Signature Velocities are measured in cm/s ; Diameters are measured in cm LE Vein Mapping Superficial - Great Saphenous Vein Right Left + + + + + + + + !Location ! !Diameter !Depth ! !Diameter !Depth ! + + + + + + + + !GSV High Thigh ! !0.32 ! ! !0.3 ! ! + + + + + + + + !GSV Mid Thigh ! !0.19 ! ! + + + + + !GSV Low Calf ! + + Superficial - Lesser Saphenous Vein Right Left + + + + + + + + !Location ! !Diameter !Depth ! !Diameter !Depth ! + + + + + + + + !SSV High Calf ! !0.2 ! ! + + + + + Narrative Performed At LAB - Lower Extremities Vein Mapping [facility] HEARTLAB [facility] Demographics Patient Name COLE MATHIAS Date of Study 08/16/2020 Age 69 Visit Number [id number] Gender Female Accession Number [id number] Date of 1950 Referring Johnny Natan Room Number SCPR Physician MD Rod Special Services Agent Daniel Duran Interpreting Rakel Araujo, Physician Procedure Type of Study: Veins: Lower Extremity Vein Mapping, VEIN MAPPING, LOWER EXTREMITY, BILATERAL. Indications for Study:Pre-op CABG. Patient Status:STAT. Study Location:Portable. Technical Quality:Adequate visualization . Risk Factors History of Disease + +----+ + !Diagnosis !Date!Comments ! + +----+ + !History/Risk Factors: ! !CAD, HTN, Recent Trauma, Morbid Obesity ! + +----+ + Procedure Note Interface, External Ris In - 08/17/2020 7:58 AM ADVENTURE GUIDE PV LAB - Lower Extremities Vein Mapping Demographics Patient Name COLE MATHIAS te of Study 08/16/2020 Ag e 69 Visit Number [id number] Ge nder Female Accession Number [id number] Da te of 1950 Referring Johnny Álvarez om Number SCPR Physician MD Rod Special Services Agent Daniel Duran In terpreting Rakel Araujo, Ph ysician Procedure Type of Study: Veins: Lower Extremity Vein Mapping, VE IN MAPPING, LOWER EXTREMITY, BILATERAL. Indications for Study:Pre-op CABG. Patient Status:STAT. Study Location:Portable. Technical Quality:Adequate visualization . Risk Factors History of Disease + +----+ + !Diagnosis !Date!Comments ! + +----+ + !History/Risk Factors: ! !CAD, HTN, R ecent Trauma, Morbid Obesity ! + +----+ + Impressions Right Impression 1. There is no deep venous venous obstru ction in the common femoral, profunda femoral, femoral, popliteal, po sterior tibial or peroneal veins. 2. There is no superficial venous obstru ction in the great saphenous vein. 3. Varicose veins noted in the great sap henous and lesser saphenous veins of the right lower extremity. Left Impression 1. There is no deep venous venous obstru ction in the common femoral, profunda femoral, femoral, popliteal, po sterior tibial or peroneal veins. 2. There is no superficial venous obstru ction in the great saphenous vein. 3. Varicose veins noted in the great sap henous and lesser saphenous veins of the left lower extremity. Conclusions Summary Venous duplex imaging and compression o f the bilateral lower extremities was performed. The veins were adequatel y visualized. The bilateral venous systems were patent and compressible wi th no evidence of thrombus. Superficial venous measurements are doc umented below. Varicose veins noted in the great saphe nous and lesser saphenous veins of the bilateral lower extremities. Signature Velocities are measured in cm/s ; Diamet ers are measured in cm LE Vein Mapping Superficial - Great Saphenous Vein Right Left + + + + + + + + !Location ! !Diameter !Depth ! !Diameter !Depth ! + + + + + + + + !GSV High Thigh ! !0.32 ! ! !0.3 ! ! + + + + + + + + !GSV Mid Thigh ! !0.19 ! ! + + + + + !GSV Low Calf ! + + Superficial - Lesser Saphenous Vein Right Left + + + + + + + + !Location ! !Diameter !Depth ! !Diameter !Depth ! + + + + + + + + !SSV High Calf ! !0.2 ! ! + + + + + Performing Organization Address City/State/Zipcode Phone Number [facility] ECHO HEARTLAB MKCKESSON jacob STAFFORD (08/16/2020 9:31 PM ADVENTURE GUIDE) Pathologist Sig nature ABO Grouping A [facility] DICAL [place]IR Rh Factor POS [facility] Specimen Blood Performing Organization Address City/[facility]/Zipcode Phone Number [facility] [address] [place] [address] aPTT (08/16/2020 9:31 PM ADVENTURE GUIDE) Pathologist Sig nature PTT 31.5 22.5 - 36.0 seconds [facility] Specimen Blood Performing Organization Address [facility] Centercode Phone Number [address] [address] CENTER Prothrombin time/INR (08/16/2020 9:31 PM ADVENTURE GUIDE)Only the most recent of2 results within the time period is included. Pathologist Sig [facility] Protime 13.9 11.9 - 14.2 seconds [facility] INR 1.10 <=5.90 [facility] Specimen Blood Narrative Performed At Effective 03/05/2019: PT Reference Range [facility] Change New: 11.9-14.2 Previous: 11.7-14.7 RECOMMENDED COUMADIN/WARFARIN INR THERAPY RANGES STANDARD DOSE: 2.0-3.0 Includes: PROPHYLAXIS for venous thrombosis, systemic embolization; TREATMENT for venous thrombosis and/or pulmonary embolus. HIGH RISK: Target INR is 2.5-3.5 for patients wiht mechanical heart valves. Performing Organization Address City/[facility] Cent[facility]ode Phone Number [address] [address] CENTER Hemoglobin A1c (08/16/2020 9:31 PM ADVENTURE GUIDE) Pathologist Sig [facility] Hemoglobin A1C 5.8 4.3 - 6.1 % [facility] Specimen Blood Performing Organization Address City/[facility]/Zipcode Phone Number [address] [address] CENTER Lipid panel (08/16/2020 9:31 PM ADVENTURE GUIDE) Pathologist Sig nature Triglycerides 91Comment: Specimen mg/dL [facility] slightly hemolyzed [facility] Cholesterol 107Comment: Specimen mg/dL [facility] HDL 31 mg/dL [facility] LDL Calculated 58 mg/dL [facility] Specimen Blood Narrative Performed At Triglyceride Reference Range: [facility] Low Risk <150 Borderline 150-199 High Risk 200-499 Very High Risk >=500 Cholesterol Reference Range: Low Risk <200 Borderline 200-239 High Risk >240 HDL Cholesterol Reference Range: Low Risk >=60 High Risk <40 LDL Cholesterol Reference Range: Optimal <100 Near Optimal 100-129 Borderline 130-159 High 160-189 Very High >=190 Mountain [facility] ID - [facility] Performing Organization Address City/State/Zipcode Phone Number [facility] [address] [place] [address] DUNSMUIR Comprehensive metabolic panel (08/16/2020 9:31 PM ADVENTURE GUIDE) Protein, Total 7.0Comment: 6.0 - 8.3 [facility] Specimen slightly gm/dL [facility] Albumin 3.8Comment: 3.5 - 5.0 [facility] Specimen slightly g/dL [facility] Alkaline 99 40 - 150 U/L [facility] Phosphatase [facility] Total Bilirubin 0.4Comment: 0.2 - 1.2 [facility] Specimen slightly mg/dL [facility] Sodium 137 136 - 145 [facility] meq/L [facility] Potassium 4.4Comment: 3.5 - 5.1 [facility] Specimen slightly meq/L [facility] Chloride 101 98 - 107 [facility] meq/L [facility] CO2 25 22 - 29 meq/L [facility] BUN 22 (H) 7 - 21 mg/dL [facility] Creatinine 0.97Comment: 0.57 - 1.25 [facility] Specimen slightly mg/dL [facility] Glucose 134 (H) 70 - 105 [facility] mg/dL [facility] Calcium 9.8 8.4 - 10.2 [facility] mg/dL [facility] AST 40 (H)Comment: 5 - 34 U/L [facility] Specimen [facility] ALT 33Comment: 6 - 55 U/L [facility] Specimen [facility] EGFR 69Comment: mL/min/1.73 [facility] ESTIMATED GFR IS sq [facility] NOT ACCURATE [facility] CREATININE CLEARANCE IN PREDICTING GLOMERULAR FILTRATION RATE. ESTIMATED GFR IS NOT APPLICABLE FOR DIALYSIS PATIENTS. Specimen Blood Narrative Performed At Mountain [facility] ID - JONNATHAN Becker [facility] Performing Organization Address [facility] Centercode Phone Number [address] [address] CENTER Type and screen, automated (08/16/2020 9:12 PM ADVENTURE GUIDE) Pathologist Sig nature ABO/RH AUTOMATED A [facility] (BEAKER) [facility] : echo CENTER Ab Scrn NEGATIVEComment [facility] : echo [facility] Specimen Blood Performing Organization Address City/[facility]/Zipcode Phone Number [address] [address] 2D Echo W/Doppler(CW/PW/Color) (08/15/2020 4:50 PM ADVENTURE GUIDE) Pathologist Sig nature Ejection Fraction [facility] ECHO HEARTLAB [facility] Specimen Narrative Performed At Transthoracic Echocardiography Report (T TE) [facility] ECHO HEARTLAB [facility] Demographics Patient Name COLE MATHIAS Date of Study 08/15/2020 Gender Female Visit Number [id number] Race Black Room Number [id number] Number Date of 1950 Referring Physician Jennifer Bishop Age 69 year(s) Special Services Agent Abed Ashu Interpreting Jeffrey martin, Physician Fellow Lauro Stern MD Procedure Type of Study TTE procedure:2DECHO W DOPPLER(CW/PW/COLOR) (Routine) Indications:Acute Chest Pain/ Suspected CAD. Clinical History HGB 12.1 HCT 37.5 % BIPOLAR 1 DISORDER HEP C HTN L CATH & PCI 12/12/18 Height: 62 inches Weight: 100.7 kg (222 lbs) BSA: 2 m^2 BMI: 40.6 kg/m^2 HR: 67 bpm BP: 116/70 mmHg Summary The left ventricle is chamber size (by vol index) is normal. Mild to moderate concentric LV hypertrophy. All of the LV segments contract normally . LVEF by Gipson's method of disk assessment is normal (>60%) . Grade 1 diastolic dysfunction (impaired relaxation and low-normal LA pressure). Estimated peak systolic PA pressure is cannot be determined due to inadequate TR velocity signal . Signature Findings Rhythm/BP Regular sinus rhythm during the exam. Left Ventricle The left ventricle is chamber size (by vol index) is n ormal. Mild to moderate concentric LV hypertrophy. All of the LV segments contract normally . LVEF by Gipson's method of disk assessment is normal (>60%) . Grade 1 diastolic dysfunction (impaired relaxati on and low-normal LA pressure). Left Atrium LA size is normal . Right Ventricle There is mild-moderate systolic dysfunction of the right ventricle. The right ventricular cavity size is mildly enla rged . Right Atrium RA size is probably normal based on available view s. Atrial Septum Normal interatrial septum by available views. Aortic Valve Normal AoV structure and function. Mild leaflet thic kening Mitral Valve Normal MV s tructure. No significant mitral regurgitation. Mild MV leaflet thickening. Tricuspid Valve No evidence of tricuspid regurgitation. Normal TV structure and function. Estimated peak systolic PA pressure is cannot be determined due to inadequate TR velocity signal . Pulmonic Valve Normal PV structure and function by limited views and Doppler. Aorta Aortic root size (SInus of Valsalva diameter) is norm al . Pericardium No significant pericardial effusion is visualized. IVC/SVC/PA/PV/Pleural The inferior vena cava is not well visualized. Chambers/Structures Left Atrium LA Volume: 25.82 ml LA Area: 11.57 cm^2 LA Vol. Index: 13 ml/m^2 Left Ventricle LVIDd: 3.24 cm LVEDV:78.36 ml LVIDs: 2.08 cm LV Septum Diastolic: 1.51 cm LV PW Diastolic: 1.3 cm LV FS: 35.8 % LVEDV Gipson's:41.57 ml LVESV Gipson's:15.51 ml LVEDVI: 21 ml/m^2 LVEF Gipson's: 62.7 % LVESVI: 8 ml/m^2 LVOT Diameter: 1.99 cm Right Ventricle RVOT VTI: 10.79 cm TAPSE: 1.15 cm Aorta Ao Root S of Vannessa.: 3.3 cm Doppler/Quantitative Measurements Mitral Valve MV Peak E-Wave: 0.34 m/s MV Peak A-Wave: 0.59 m/s E/A Ratio: 0.57 Peak Gradient: 0.45 mmHg Deceleration Time: 413 msec MV Giuseppe. Peak: Tissue Doppler E' Septal Velocity: 0.04 m/s A' Septal Velocity: 0.08 m/s E' Lateral Velocity: 0.05 m/s A' Lateral Velocity: 0.09 m/s E/E': 6.3 Aortic Valve Peak Velocity: 0.9 m/s Mean Velocity: 0.67 m/s Peak Gradient: 3.23 mmHg Mean Gradient: 2.01 mmHg AV Area (continuity): 3.19 cm^2 AV VTI: 17.03 cm AV DVI: 1.03 LVOT Peak Velocity: 0.89 m/s Peak Gradient: 3.17 mmHg Mean Velocity: 0.63 m/s Mean Gradient: 1.84 mmHg LVOT Diameter: 1.99 cm LVOT VTI: 17.46 cm LVOT Area: 3.11 cm^2 LVOT SV:54.28 ml LVOT CO: 3.64 l/min LVOT CI: 1.82 l/min/m^2 Procedure Note Interface, External Ris In - 08/16/2020 9:53 AM ADVENTURE GUIDE Transthoracic Echocardiography Report (TTE) Demographics Patient Name COLE MATHIAS Date of Study 08/15/2020 Gender Female Visit Number [id number] Race Black Room [place] [address] Number Date of 1950 Referri Physician Jennifer Bishop Age 69 year(s) Sonogra pher Abed Ashu Interpr eting Dolly Cai MD Fellow Lauro Stern MD Procedure Type of Study TTE procedure:2DECHO W DOPPLE R(CW/PW/COLOR) (Routine) Indications:Acute Chest Pain/ Suspected CAD. Clinical History HGB 12.1 HCT 37.5 % BIPOLAR 1 DISORDER HEP C HTN L CATH & PCI 12/12/18 Height: 62 inches Weight: 100.7 kg (222 lbs) BSA: 2 m^2 BMI: 40.6 kg/m^2 HR: 67 bpm BP: 116/70 mmHg Summary The left ventricle is chamber size (by vol index) is normal. Mild to moderate concentric LV hypertrophy. All of the LV segments contract normally . LVEF by Gipson's method of disk assess ment is normal (>60%) . Grade 1 diastolic dysfunction (impaired relaxation and low-normal LA pressure). Estimated peak systolic PA pressure is cannot be determined due to inadequate TR velocity signal . Signature Findings Rhythm/BP Regular sinus rh ythm during the exam. Left Ventricle The left ventric le is chamber size (by vol index) is normal. Mild to moderate concentric LV hypertrophy. All of the LV se gments contract normally . LVEF by Gipson' s method of disk assessment is normal (>60%) . Grade 1 diastoli c dysfunction (impaired relaxation and low-normal L A pressure). Left Atrium LA size is lanette l . Right Ventricle There is mild-mo derate systolic dysfunction of the right ventricle. The right ventri cular cavity size is mildly enlarged . Right Atrium RA size is proba debbie normal based on available views. Atrial Septum Normal interatri al septum by available views. Aortic Valve Normal AoV struc ture and function. Mild leaflet thickening Mitral Valve Normal MV struct ure. No significant m itral regurgitation. Mild MV leaflet thickening. Tricuspid Valve No evidence of t ricuspid regurgitation. Normal TV struct ure and function. Estimated peak s ystolic PA pressure is cannot be determined due t o inadequate TR velocity signal . Pulmonic Valve Normal PV struct ure and function by limited views and Doppler. Aorta Aortic root size (SInus of Valsalva diameter) is normal . Pericardium No significant p ericardial effusion is visualized. IVC/SVC/PA/PV/Pleural The inferior rosetta a cava is not well visualized. Chambers/Structures Left Atrium LA Volume: 25.82 ml LA Area: 11.57 cm^2 LA Vol. Index: 13 ml/m^2 Left Ventricle LVIDd: 3.24 cm LVEDV:78.36 ml LVIDs: 2.08 cm LV Septum Diastolic: 1.51 cm LV PW Diastolic: 1.3 cm LV FS: 35.8 % LVEDV Gipson's:41.57 ml LVESV Giposn's:15.51 ml LVEDVI: 21 ml/m^2 LVEF Gipson's: 62.7 % LVESVI: 8 ml/m^2 LVOT Diameter: 1.99 cm Right Ventricle RVOT VTI: 10.79 cm TAPSE: 1.15 cm Aorta Ao Root S of Vannessa.: 3.3 cm Doppler/Quantitative Measurements Mitral Valve MV Peak E-Wave: 0.34 m/s M V Peak A-Wave: 0.59 m/s E /A Ratio: 0.57 P eak Gradient: 0.45 mmHg D eceleration Time: 413 msec MV Giuseppe. Peak: Tissue Doppler E' Septal Velocity: 0.04 m/s A ' Septal Velocity: 0.08 m/s E' Lateral Velocity: 0.05 m/s A ' Lateral Velocity: 0.09 m/s E /E': 6.3 Aortic Valve Peak Velocity: 0.9 m/s Mean Velocity: 0.67 m/s Peak Gradient: 3.23 mmHg Mean Gradient: 2.01 mmHg AV Area (continuity): 3.19 cm^2 AV VTI: 17.03 cm AV DVI: 1.03 LVOT Peak Velocity: 0.89 m/s Pea k Gradient: 3.17 mmHg Mean Velocity: 0.63 m/s Jory n Gradient: 1.84 mmHg LVOT Diameter: 1.99 cm LVO T VTI: 17.46 cm LVOT Area: 3.11 cm^2 LVO T SV:54.28 ml LVOT CO: 3.64 l/min LVO T CI: 1.82 l/min/m^2 Performing Organization Address [facility] Phone Number [facility] E[facility] HEARTLAB [facility] Hepatic function panel (08/14/2020 4:46 AM ADVENTURE GUIDE) Pathologist Sig nature Protein, Total 7.0 6.0 - 8.3 gm/dL [facility] Albumin 3.9 3.5 - 5.0 g/dL [facility] Total Bilirubin 0.4 0.2 - 1.2 mg/dL [facility] Bilirubin, Direct 0.2 0.1 - 0.5 mg/dL [facility] Alkaline Phosphatase 96 40 - 150 U/L [facility] AST 21 5 - 34 U/L [facility] ALT 24 6 - 55 U/L [facility] Specimen Blood Narrative Performed At [facility] Performing Organization Address City/[facility] Cent[facility]ode Phone Number [facility] [address] [place] [address] brain without IV contrast (08/14/2020 4:20 AM ADVENTURE GUIDE) Specimen Narrative Performed At FINAL REPORT [facility] EXAM: CT, BRAIN, WITHOUT CONTRAST CLINICAL INDICATION: Head trauma. TECHNIQUE: CT images from skull base t o vertex without IV contrast. This exam was performed according to the departmental dose optimization program which includes auto mated exposure control, adjustment of the mA and/or kV according to the patient size, and/or use of an iterative reconstruction techn ique. COMPARISON: None. FINDINGS: Parenchyma: No evidence of acute infarct ion. No hemorrhage. No mass or mass effect. Patchy and confluent are as of hypoattenuation are present in the cerebral white matter dante t are nonspecific but compatible with moderate chronic microva scular ischemic changes. Extra-axial Collection: None Ventricular System: Normal Osseous Structures: No acute osseous a bnormality. Included Orbits: Prior bilateral lens hernandez rgery Paranasal Sinuses: Predominantly clear Tympanomastoid Cavities: Normal Other: None. IMPRESSION: 1. No acute intracranial abnormality on CT head without contrast. 2. Moderate chronic microvascular ischem ic changes. If there is persistent clinical concern for intracranial pathology, MR examination is recommended for furthe r characterization. Signed: Bhupendra Avila MD Report Verified Date/Time: 08/14/2020 04:33:35 Procedure Note Interface, External Ris In - 08/14/2020 5:59 AM ADVENTURE GUIDE FINAL REPORT EXAM: CT, BRAIN, WITHOUT CONTRAST CLINICAL INDICATION: Head trauma. TECHNIQUE: CT images from skull base to vertex without IV contrast. This exam was performed according to the departmental dose optimization program which includes auto mated exposure control, adjustment of the mA and/or kV according to the patient size, and/or use of an iterative reconstruction techn ique. COMPARISON: None. FINDINGS: Parenchyma: No evidence of acute infarct ion. No hemorrhage. No mass or mass effect. Patchy and confluent are as of hypoattenuation are present in the cerebral white matter dante t are nonspecific but compatible with moderate chronic microva scular ischemic changes. Extra-axial Collection: None Ventricular System: Normal Osseous Structures: No acute osseous ab normality. Included Orbits: Prior bilateral lens hernandez rgery Paranasal Sinuses: Predominantly clear Tympanomastoid Cavities: Normal Other: None. IMPRESSION: 1. No acute intracranial abnormality on CT head without contrast. 2. Moderate chronic microvascular ischem ic changes. If there is persistent clinical concern for intracranial pathology, MR examination is recommended for furthe r characterization. Signed: Bhupendra Avila MD Report Verified Date/Time: 08/14/2020 0 4:33:35 Performing Organization Address City/State/Zipcode Phone Number GE RIS [id number] (08/13/2020) Narrative Performed At This result has an attachment that is no t available. Ordered by an unspecified provider. after 09/22/2019 Insurance Payer Benefit Plan / Subscriber ID Effective Dates Phone Addre ss Type Group [facility]/MEDICARE [id number] 2019-Present MEDICARE [facility] CARE COMPLETE [employer] MEDICAID MEDICAID [place] [id number] 2018-Present [employer] - UNITED MEDICARE [id number] 2019-Present MEDICARE [facility] CARE HMO Advance Directives For more information, please contact: [phone] Code Status Date Activated Date Inactivated Comments Full Code 08/16/2020 9:00 PM 08/24/2020 5:06 PM This code status was determined by: Patient Full Code 08/13/2020 9:29 PM 08/16/2020 9:00 PM This code status was determined by: Patient Full Code 12/11/2018 5:02 AM 12/13/2018 5:56 PM This code status was determined by: Patient
--- OUTSIDE RECORDS SUMMARY | 2020-09-22 11:14 | XMS REPORT | Continuity of Care Document ---
:1950 Author Organization [facility] t Address [address] [place] [address] Care Team Providers Name Role Phone Kristi Milian MD Primary Care Physician Ofelia Andujar MD Attending Clinician Zoey Loaiza MD Attending Clinician Bita Orta MD Attending Clinician Rosa Velasco MD Attending Clinician Lashell Carr MD Attending Clinician Maria T AKERS Attending Clinician Shannan Kulkarni Attending Clinician ZOEY LOAIZA Attending Clinician Unavailable KRISTI MILIAN Attending Clinician Unavailable BITA ORTA Admitting Clinician Unavailable KRISTI MILIAN Admitting Clinician Unavailable Payers Payer Name Policy Type Policy Effective Date Expiration Date [facility] Number [facility] - [id number] 2019 RYANN Jacinto MEDICARE MGD 00:00:00 - Medical CAREAARP/MEDICARE Center [id number]/[id number] 019-Present ROBLERO [id number] 2018 [facility] MEDICAIDMEDICAID 00:00:00 - Medica l [id number]/ Ce nter 9-Present Problems Condition Condition Condition Status Onset Resolution Last Treating Co mments Source Name Details Category Date Date Treatment Clinician Date S/P CABG x S/P CABG x Disease Active 2019-[address] 3 by 3 by 10-17 Ophelia - Con on Con on 00:00: Me dical 08/17/2020 08/17/2020 00 Ce nter Coronary Coronary Disease [facility] - disease disease 00:00: Medical 00 Center Essential Essential Problem Active [facility] hypertensi Hypertensi 04-15 da on on 00:00: Medical 00 Group Heart Heart Problem Active [place] disease Disease 04-15 da 00:00: Medical 00 Group NSTEMI NSTEMI Disease Active [facility] - elevation elevation 00:00: Medi amirah myocardial myocardial 00 Ce nter infarction infarction ) ) Acute Acute Disease Active [facility] respirator respirator Niyah kes - y y Medical insufficie insufficie Ce nter ncy ncy Other Other Disease Active [facility] specified specified [facility] - hypotensio hypotensio Ak dical n n Center Acute Acute Disease Active [facility] blood loss blood loss [facility] - anemia anemia [facility] Hyperglyce Hyperglyce Disease Active [facility] maame [facility] Allergies, Adverse Reactions, Alerts Allergy Allergy Status Severity Reaction(s) Onset Inactive Treating Comm ents Source Name Type Date Date Clinician Tramadol Propensi Active [facility] 3-06 [facility] - adverse 00:00: Medical reaction 00 Center s Tramadol Allergy Active [facility] Medical e Group Social History Social Habit Start Date Stop Date Quantity Comments Source Sex Assigned At [facility] Tobacco use and 2020-09-09 2020-09-09 Never used [facility] - exposure 00:00:00 00:00:00 Medical Center Smoking Status Start Date Stop Date Source [facility] Medications Ordered Filled Start Stop Current Ordering Indication Dosage Frequency Signature Comments Components Source Medication Medication Date Date Medication? Clinician (SIG) Name Name cycloSPORIN 2019-10 Yes 1[drp] Q.5D Place [address] E 2-03 drop into [facility] - (RESTASIS) 13:24: both eyes Me dical 0.05 % 12 2 (two) Center ophthalmic times emulsion daily. aspirin 81 2019-10 Yes 81mg Q24H Take [address] MG EC 2-03 by mouth [facility] - tablet 13:24: daily. Medical 12 Center thyroid, 2019-10 Yes 15mg QD Take [address] pork, 2-03 by mouth [facility] - (ARMOUR) 15 13:24: daily. Medi amirah mg Tab 12 Center tablet hydroCHLORO 2019-10 Yes 25mg QD Take [address] thiazide 2-03 by mouth [facility] - (HYDRODIURI 13:24: daily. Medi amirah L) 25 MG 12 Center tablet ALPRAZolam 2019-10- No 2mg Take [address] (XANAX) 2 10-24 by mouth 3 [facility] - MG tablet 14:09: 00:00 (three) Medi amirah 20 :00 times Center daily as needed for Sleep. HYDROcodone 2019-10- No 1{tbl} Take [address] -acetaminop 10-24 tablet by Niyah radhika - hen (NORCO 14:09: 00:00 mouth 2 Med ical 7.5-325) 20 :00 (two) Center 7.5-325 mg times per tablet daily as needed for Pain. carvedilol 2019-10- No 25mg Take [address] (COREG) 25 10-24 by mouth 2 Niyah kes - MG tablet 14:09: 00:00 (two) Medica l 20 :00 times Center daily with breakfast and dinner. amLODIPine 2019-10- No 10mg QD Take [address] (NORVASC) -24 08- by mouth [facility] - 10 MG 14:09: 00:00 daily. Medical tablet 20 :00 Center citalopram 2019-10- Yes 20mg QD Take [address] (CeleXA) 20 108-24 tablet (20 [facility] - MG tablet 00:00: 23:59 mg total) Me dical 00 :00 by mouth Center nightly. metoprolol 2019-10- Yes 25mg Q.5D Take [address] tartrate 10-24 tablet (25 Luke [facility] - (LOPRESSOR) 00:00: 23:59 mg total) Medical 25 MG 00 :00 by mouth 2 Center tablet (two) times daily. oxybutynin 2019-10- Yes 5mg Q.5D Take [address] (DITROPAN) 10-24 tablet (5 [facility] - 5 MG tablet 00:00: 23:59 mg total) Medical 00 :00 by mouth 2 Center (two) times daily. HYDROcodone 2019-10- No 1{tbl} Take [address] -acetaminop 10-24 tablet by Niyah jacobson (NORCO 00:00: 23:59 mouth Medic al 7.5-325) 00 :00 every 4 Center 7.5-325 mg (four) per tablet hours as needed for up to 10 days. Max Daily Amount: 6 tablets predniSONE 2019-10- No 20mg QD Take [address] (DELTASONE) 10-14 by mouth [facility] - 20 MG 02:08: 00:00 daily. Medical tablet 37 :00 Center albuterol 2019-10 Yes 1{puff} Inhale [address] HFA 1-04 puff by [facility] - (VENTOLIN 00:00: mouth via Med ical HFA) 90 00 inhaler Center mcg/actuati every 6 on inhaler (six) hours as needed. atorvastati 2019-10 Yes 1{tbl} QD Take [address] n (LIPITOR) 0-28 tablet by [facility] - 80 MG 00:00: mouth Medical tablet 00 nightly. Center Symbicort 2019-10 Yes 2{puff} Q.5D Inhale [address] 160-4.5 0-28 puffs by [facility] - mcg/actuati 00:00: mouth via M edical on inhaler 00 inhaler 2 Cent er (two) times daily. hydroCHLORO 2019-10- No 12.5mg QD Take 12.[address] thiazide 0-28 11-07 mg by [facility] - (HYDRODIURI 00:00: 00:00 mouth Medi amirah L) 12.5 MG 00 :00 daily. [place] tablet albuterol 2019-10 Yes 2.5mg Take 2.[address] (PROVENTIL) 0-22 mg by [facility] - 2.5 mg /3 00:00: nebulizati Me dical mL (0.083 00 on every 6 Cent er %) (six) nebulizer hours as solution needed. meloxicam 2019-10 2020- No 15mg QD Take [address] (MOBIC) 15 0-12 11-17 by mouth Luke [facility] - MG tablet 00:00: 00:00 daily. Medic al 00 :00 [place] colchicine 2019-10 Yes .6mg QD Take 0.[address] (COLCRYS) 0-02 mg by [facility] - 0.6 mg 00:00: mouth Medical tablet 00 daily. [place] losartan 2019-10 Yes 1{tbl} QD Take 1 [facility] (COZAAR) 0-02 tablet by [facility] - 100 MG 00:00: mouth Medical tablet 00 daily. [place] Vital Signs Vital Name Observation Time Observation Value Comments Source BP Diastolic 2019-05-13 00:00:00 98 [facility]Hg[facility] Height 2019-05-13 00:00:00 62 [in_i] [facility] BMI (Body Mass 2019-05-13 00:00:00 38.6 kg/m2 [facility] Medical Index) Group BP Systolic 2019-05-13 00:00:00 170 mm[Hg] [facility] Body Weight 2019-05-13 00:00:00 211 [lb_av] [facility] BP Diastolic 2019-04-15 00:00:00 94 mm[Hg] [facility] Height 2019-04-15 00:00:00 62 [in_i] [facility] BMI (Body Mass 2019-04-15 00:00:00 37.9 kg/m2 [facility] Medical Index) Group BP Systolic 2019-04-15 00:00:00 130 mm[Hg] [facility] Body Weight 2019-04-15 00:00:00 207 [lb_av] [facility] Systolic blood 2020-09-09 13:09:00 138 mm[Hg] [facility] Diastolic blood 2020-09-09 13:09:00 75 mm[Hg] [facility] Heart rate 2020-09-09 13:09:00 84 /min [facility] Body temperature 2020-09-09 13:09:00 37 Melinda [facility] Respiratory rate 2020-09-09 13:09:00 18 /min [facility] Body height 2020-09-09 13:09:00 157.5 cm [facility] Body weight 2020-09-09 13:09:00 87.998 kg [facility] BMI 2020-09-09 13:09:00 35.48 kg/m2 [facility] Oxygen saturation in 2020-09-09 13:09:00 98 /min room air [facility] Arterial blood by Medical Ce nter Pulse oximetry Procedures Procedure Date / Time Performing Clinician Source Performed SARS-COV2/RT-PCR ([facility] & 2020-08-24 02:22:00 Lilly, [facility] - REF LABS) [facility] BASIC METABOLIC PANEL 2020-08-24 01:12:01 Nelson [facility] () [facility] CBC W/PLT COUNT & AUTO 2020-08-24 01:12:01 Leslie [facility] DIFFERENTIAL [facility] BASIC METABOLIC PANEL 2020-08-22 09:53:00 Lilly, [facility] () [facility] CBC W/PLT COUNT & AUTO 2020-08-22 09:53:00 Lilly [facility] C [facility] DIFFERENTIAL [facility] 2D ECHO W/ DOPPLER 2020-08-20 22:51:16 Jonathan Ragland [facility] (CW/PW/COLOR) [facility] LACTIC ACID, ARTERIAL 2020-08-20 06:24:00 Lina Tanadalbertoe Polycarp [facility] BASIC METABOLIC PANEL 2020-08-20 06:24:00 Lina Tanwye [facility] () [facility] CALCIUM, IONIZED 2020-08-20 06:24:00 LinaLizandro watson [facility] CBC W/PLT COUNT & AUTO 2020-08-20 06:24:00 Lizandro Mills [facility] XR CHEST 1 VIEW 2020-08-20 03:28:00 Lizandro Mills [facility] PORTABLE/BEDSIDE [facility] BASIC METABOLIC PANEL 2020-08-19 14:44:00 RodTrungnalini [facility] () [facility] PHOSPHORUS 2020-08-19 14:44:00 RodKingsleyini [facility] MAGNESIUM 2020-08-19 14:44:00 [facility] CALCIUM, IONIZED 2020-08-19 14:44:[address] [facility] LACTIC ACID, VENOUS 2020-08-19 14:44:[address] [facility] CBC W/PLT COUNT & AUTO 2020-08-19 14:44:00 Rod Trungjaidasofie C [facility] XR CHEST 1 VIEW 2020-08-19 01:08:00 LinaLizandro watson [facility]/BEDSIDE [facility] MAGNESIUM 2020-08-18 03:56:[address] [facility] PHOSPHORUS 2020-08-18 03:56:[address] [facility] BLOOD GAS, ARTERIAL 2020-08-18 03:56:00 LinaLizandro watsonarp [facility] LACTIC ACID, ARTERIAL 2020-08-18 03:56:00 LinaLizandro watson Polycar[facility] BASIC METABOLIC PANEL 2020-08-18 03:56:00 LinaLizandro watsonarp [facility] (7) [facility] CALCIUM, IONIZED 2020-08-18 03:56:00 LinaLizandro Polycarp [facility] CBC W/PLT COUNT & AUTO 2020-08-18 03:56:00 Lina, Tanwie [facility] XR CHEST 1 VIEW 2020-08-18 01:49:00 [facility]/BEDSIDE [facility] POCT-GLUCOSE METER 2020-08-17 22:31:[address] [facility] BLOOD GAS, ARTERIAL 2020-08-17 20:15:00 [facility] BASIC METABOLIC PANEL 2020-08-17 20:15:00 [facility] (7) [facility] MAGNESIUM 2020-08-17 20:15:00 Lina [facility] LACTIC ACID, ARTERIAL 2020-08-17 20:15:00 Lina [facility] CBC W/PLT COUNT & AUTO 2020-08-17 20:15:00 Lina [facility] BLOOD GAS, ARTERIAL 2020-08-17 19:21:00 [facility] POCT-GLUCOSE METER 2020-08-17 18:06:[address] [facility] POCT-GLUCOSE METER 2020-08-17 17:19:[address] [facility] POCT-GLUCOSE METER 2020-08-17 16:10:[address] [facility] POCT-GLUCOSE METER 2020-08-17 15:26:[address] [facility] XR CHEST 1 VIEW 2020-08-17 14:09:[address] [facility] - PORTABLE/BEDSIDE [facility] LACTIC ACID, ARTERIAL 2020-08-17 14:09:[address] [facility] OXYGEN SATURATION, 2020-08-17 14:09:[address] Niyah kes - MEASURED [facility] BLOOD GAS, ARTERIAL 2020-08-17 14:08:00 Nelson[facility] METABOLIC PANEL 2020-08-17 14:06:00 [facility] ([facility]) [facility] MAGNESIUM 2020-08-17 14:06:[address] [facility] PHOSPHORUS 2020-08-17 14:06:[address] [facility] CBC W/PLT COUNT & AUTO 2020-08-17 14:06:00 Hank Handy [facility] POCT-ACT 2020-08-17 12:33:00 Rod [facility] CALCIUM, IONIZED 2020-08-17 12:30:03 [facility] BLOOD [facility]AS, ARTERIAL 2020-08-17 12:30:03 Maria T [facility] SODIUM NA-STAT LAB 2020-08-17 12:30:03 [facility] POT[facility]SI[facility] 2020-08-17 12:30:03 [facility] GLUCOSE-STAT LAB 2020-08-17 12:30:03 [facility] HGB/HCT (H&H) - STAT LAB 2020-08-17 12:30:03 [facility] 2020-08-17 11:42:00 Rod [facility] BLOOD GAS, ARTERIAL 2020-08-17 11:40:[address] [facility] SODIUM NA-STAT LAB 2020-08-17 11:40:31 Con [facility] POTASSIUM-STAT LAB 2020-08-17 11:40:31 Con [facility] GLUCOSE-STAT LAB 2020-08-17 11:40:31 Con [facility] HGB/HCT (H&H) - STAT LAB 2020-08-17 11:40:31 Con, [facility] POCT-ACT 2020-08-17 11:12:00 Rod [facility] ANESTHESIA MATT 2020-08-17 11:05:16 [facility] BLOOD GAS, VENOUS 2020-08-17 10:41:51 Maria Luisa Nelsonz [facility] BLOOD GAS, ARTERIAL 2020-08-17 10:41:[address] [facility] SODIUM NA-STAT LAB 2020-08-17 10:41:11 Con [facility] POTASSIUM-STAT LAB 2020-08-17 10:41:11 Con [facility] GLUCOSE-STAT LAB 2020-08-17 10:41:11 Con [facility] HGB/HCT (H&H) - STAT LAB 2020-08-17 10:41:11 Con [facility] POCT-ACT 2020-08-17 10:41:00 Rod [facility] POCT-ACT 2020-08-17 09:44:00 Rod [facility] BLOOD GAS, ARTERIAL 2020-08-17 08:17:23 Maria T [facility] SODIUM NA-STAT LAB 2020-08-17 08:17:23 [facility] POT[facility] LAB 2020-08-17 08:17:23 Maria T [facility] GLUCOSE-STAT LAB 2020-08-17 08:17:23 [facility] (H&H) - STAT LAB 2020-08-17 08:17:23 Maria T [facility] BYPASS,AORTO CORONARY 2020-08-17 07:07:00 Bhupendra Andujar [facility] CAREY/SVG [facility] ENDOSCOPIC HARVEST,VEIN 2020-08-17 07:07:00 Bhupendra Andujar [facility] MATT 2020-08-17 07:07:00 Bhupendra Andujar [facility] ECG 12-LEAD 2020-08-16 23:36:16 Unknown, Hl7 Doctor [facility] HC CAROTID DOPPLER TRINITY 2020-08-16 23:26:00 Hank Handy [facility] HC VENOUS DOPPLER EXT 2020-08-16 22:49:00 Hank Handy [facility] MAGNESIUM 2020-08-16 21:31:00 Mariana [facility] COMPREHENSIVE METABOLIC 2020-08-16 21:31:00 Mariana [facility] HEMOGLOBIN A1C 2020-08-16 21:31:00 Mariana [facility] LIPID PANEL 2020-08-16 21:31:00 Mariana [facility] PROTHROMBIN TIME/INR 2020-08-16 21:31:00 Mariana [facility] I [facility] APTT 2020-08-16 21:31:00 Mariana [facility] ABORH, MANUAL 2020-08-16 21:31:00 Zahira Nair [facility] CBC W/PLT COUNT & AUTO 2020-08-16 21:31:00 Mariana [facility] DIFFERENTIAL [facility] TYPE AND SCREEN, 2020-08-16 21:12:00 [facility] 2D ECHO W/ DOPPLER 2020-08-15 16:50:43 Dario Rodriguez [facility] (CW/PW/COLOR) [facility] SARS-COV2/RT-PCR ([facility] & 2020-08-14 04:50:00 Jana Orta [facility] - REF LABS) [facility] BASIC METABOLIC PANEL 2020-08-14 04:46:[address] [facility] () [facility] HEPATIC FUNCTION PANEL 2020-08-14 04:46:00 HaWander [facility] MAGNESIUM 2020-08-14 04:46:00 BonnerWander [facility] PROTHROMBIN TIME/INR 2020-08-14 04:46:00 Wander Bonner [facility] CBC W/PLT COUNT & AUTO 2020-08-14 04:46:00 Wander Bonner [facility] CT BRAIN WITHOUT IV 2020-08-14 04:20:00 [facility] REPORT OF PROCEDURE - 2020-08-13 00:00:[address] [facility] - ENDOSCOPY SCAN Scanning [facility] Carotid Stent Placement [facility] L[facility] Foot/toes [facility] Plan of Care Planned Activity Planned Date Details Comments Source Future Scheduled 2020-06-[address] [facility] - Test 00:00:00 WELLNESS (YEAR 2 or Medical Center FIRST YEAR if no IPPE) [code = MEDICARE ANNUAL WELLNESS (YEAR 2 or FIRST YEAR if no IPPE)] Future Scheduled 2020-06-08 INFLUENZA VACCINE (#1) [facility] Test 00:00:00 [code = INFLUENZA Medical Ce nter VACCINE (#1)] Future Scheduled 2019-10-[address] [facility] - Test 00:00:00 (12+) [code = Medical Center DEPRESSION SCREENING (12+)] Future Scheduled 2014 PNEUMOCOCCAL 65+ Y[facility] - Test 00:00:00 (1 of 1 - [facility] [id number] PCV13) [code = PNEUMOCOCCAL 65+ YRS (1 of 1 - [id number] PCV13)] Future Scheduled [address] [facility] - Test 00:00:00 [facility] breast (procedure) [code = 848433185] Future Scheduled [address] - Test 00:00:00 [facility] colon (procedure) [code = 184907297] Encounters Start End Encounter Admission Attending Care Care Encounter Source Date/Time Date/Time Type Type Clinicians Facility Department ID 2019-05-13 2019-05-13 Roxy HYATTG [place] - [id number] M atagor 00:00:00 00:00:00 Chantale Shea MD: [address] [facility] [address], [place] [address] , Ph. [phone] 2019-04-15 2019-04-15 [facility] [place] [facility] [id number] M atagor 00:00:00 00:00:00 Chantale Shea MD: [address] [facility], [address], [place] [address] , Ph. [phone] Results Test Description Test Time Test Comments Results Result Comments Source SARS-CoV2/RT-PCR (Asymptomatic ONLY) 2020-08-24 12:40:00 Test Item Value Reference Range Interpretation Comme nts SARS-COV2/RT-PCR (test code = Negative Not Detected, 63385-9) Negative, See external report for linked test SARS-COV-2 PERFORMING LAB [facility] (test code = 72768-5) YAAKOV (test code = YAAKOV) Negative result for this test determines that SARS-CoV-2 RNA was not present in the [...] of the Act. Fact Sheet for Healthcare Providers:https://www.[employer]/sites/default/files/produ ct/documents/Fact_Sheet_HC_Pr pitqcbj_Fbkf_ANJJ-LbD-3.pdf Fact Sheet for Healthcare Patients:https://www.[employer]/sites/default/files/produc t/documents/Fact_Sheet_Patien qh_Fnfu_NCLV-MoO-1.pdf Performing Laboratory:[facility], [place] [address] [place], [place] [address]ARS-COV2/RT-PCR ([facility])2020-08-24 12:40:00 Test Item Value Reference Range Interpretation Comments SARS-COV2/RT-PCR (test Negative Not Detected, Negative, code = 6741070) See external report for linked test SARS-COV-2 PERFORMING LAB [facility] (test code = 1592528) Negative result for this test determines that SARS-CoV-2 RNA was not present in the specimen above the Limit of Detection (LOD). However, Negative results do not preclude SARS-CoV-2 infection and should not be used as the sole basis for treatment or patient management decisions. Negative results mustbe combined with clinical observations, patient history, and epidemiological information. A false negative result may occur if a specimen is improperly collected, transported or handled. A false negative result should be considered if patient's recent exposures or clinical presentation indicate that COVID-19 (SARS-CoV-2) is likely and diagnostic tests for other causes of illness are negative. Re-testing should be considered in cases of suspected false negatives.The limit of detection for this assay is 800 copies/mL.This SARS CoV-2 test is a real-time RT-PCR test intended for the qualitative detection of nucleic acid from SARS-CoV-2 in a nasopharyngeal swab specimen collected from individuals susp ected of COVID-19 by their healthcare provider.This test has not been Food and Drug [...] is revoked under Section 564(g) of the Act.Fact Sheet for Healthcare Providers:https://www.[employer]/sites/default/files/product/documents/Fact_Shee t_KX_Nbryurcyq_Utvi_DCWD-TcU-1.pdfFact Sheet for Healthcare Patients:https://www.[employer]/sites/default/files/product/ documents/Twnv_Hpikb_Hrapgjpw_Xtxj_KRES-RoE-9.pdfPerforming Laboratory:[place] [address], [place] [address]Nybbd Metabolic Panel 2020-08-24 04:37:00 Test Item Value Reference Range Interpretation Comments Sodium (test code = 138 meq/L 129-713 6392-2) Potassium (test code = 3.8 meq/L 3.5-5.1 2823-3) Chloride (test code = 104 meq/L 98-107 2075-0) CO2 (test code = 26 meq/L 22-29 2028-9) BUN (test code = 9 mg/dL 7-21 3094-0) Creatinine (test code 0.66 mg/dL 0.57-1.25 = 2160-0) Glucose (test code = 110 mg/dL 70-105 H 2345-7) Calcium (test code = 8.9 mg/dL 8.4-10.2 94445-4) EGFR (test code = 107 mL/min/1.73 [place] [address]-0) NOT ACCURATE CREATININE CLEARANCE IN PREDICTING GLOMERULAR FILTRATION RATE . ESTIMATED GFR I S NOT APPLICABLE FOR DIALYSIS PATIENTS. YAAKOV (test code = YAAKOV) Hydrodynamicist ID - [id number] Lab Interpretation Abnormal (test code = 28741-4) [facility] METABOLIC [id number] 04:37:00 Test Item Value Reference Range Interpretation Comments SODIUM (BEAKER) 138 meq/L 136-145 (test code = 381) POTASSIUM (BEAKER) 3.8 meq/L 3.5-5.1 (test code = 379) CHLORIDE (BEAKER) 104 meq/L 98-107 (test code = 382) CO2 (BEAKER) (test 26 meq/L 22-29 code = 355) BLOOD UREA NITROGEN 9 mg/dL 7-21 (BEAKER) (test code = 354) CREATININE (BEAKER) 0.66 mg/dL 0.57-1.25 (test code = 358) GLUCOSE RANDOM 110 mg/dL 70-105 H (BEAKER) (test code = 652) CALCIUM (BEAKER) 8.9 mg/dL 8.4-10.2 (test code = 697) EGFR (BEAKER) (test 107 mL/min/1.73 ESTIM ATED GFR IS code = 1092) sq m NOT ACCURATE CREATININE CLEARANCE IN PREDICTING GLOMERULAR FILTRATION RATE . ESTIMATED GFR I S NOT APPLICABLE FOR DIALYSIS PATIEN TS. Hydrodynamicist ID - EDASICBC with platelet count + automated [id number] 04:04:00 Test Item Value Reference Range Interpretation Comments WBC (test code = 6690-2) 7.7 3.5- 10.5 K/L RBC (test code = 789-8) 2.75 3.93- 5.22 M/L L MCHC (test code = 786-4) 32.0 32.2- 35.5 GM/DL L Hematocrit (test code = 4544-3) 25.0 % 34.1-44.9 L MCV (test code = 787-2) 90.9 fL 79.4-94.8 MCH (test code = 785-6) 29.1 pg 25.6-32.2 RDW (test code = 788-0) 13.9 % 11.7-14.4 Platelets (test code = 777-3) 256 150- 450 K/CU MM MPV (test code = 46918-7) 10.1 fL 9.4-12.3 nRBC (test code = 413) 0 0- 0 /100 WBC % Neutros (test code = 429) 69 % % Lymphs (test code = 430) 19 % % Monos (test code = 431) 10 % % Eos (test code = 432) 1 % % Baso (test code = 437) 0 % # Neutros (test code = 670) 5.33 1.56- 6.13 K/L # Lymphs (test code = 414) 1.48 1.18- 3.74 K/L # Monos (test code = 415) 0.73 0.24- 0.36 K/L H # Eos (test code = 416) 0.08 0.04- 0.36 K/L # Baso (test code = 417) 0.03 0.01- 0.08 K/L Immature Granulocytes-Relative 1 % 0-1 (test code = 2801) Lab Interpretation (test code = Abnormal 50054-8) [facility] W/PLT COUNT & AUTO [id number] 04:04:00 Test Item Value Reference Range Interpretation Comments WHITE BLOOD CELL COUNT (BEAKER) 7.7 K/ L 3.5-10.5 (test code = 775) RED BLOOD CELL COUNT (BEAKER) 2.75 M/ L 3.93-5.22 L (test code = 761) HEMOGLOBIN (BEAKER) (test code = 8.0 GM/DL 11.2-15.7 L 410) HEMATOCRIT (BEAKER) (test code = 25.0 % 34.1-44.9 L 411) MEAN CORPUSCULAR VOLUME (BEAKER) 90.9 fL 79.4-94.8 (test code = 753) MEAN CORPUSCULAR HEMOGLOBIN 29.1 pg 25.6-32.2 (BEAKER) (test code = 751) MEAN CORPUSCULAR HEMOGLOBIN CONC 32.0 GM/DL 32.2-35.5 L (BEAKER) (test code = 752) RED CELL DISTRIBUTION WIDTH 13.9 % 11.7-14.4 (BEAKER) (test code = 412) PLATELET COUNT (BEAKER) (test 256 K/CU MM 150-450 code = 756) MEAN PLATELET VOLUME (BEAKER) 10.1 fL 9.4-12.3 (test code = 754) NUCLEATED RED BLOOD CELLS 0 /100 WBC 0-0 (BEAKER) (test code = 413) NEUTROPHILS RELATIVE PERCENT 69 % (BEAKER) (test code = 429) LYMPHOCYTES RELATIVE PERCENT 19 % (BEAKER) (test code = 430) MONOCYTES RELATIVE PERCENT 10 % (BEAKER) (test code = 431) EOSINOPHILS RELATIVE PERCENT 1 % (BEAKER) (test code = 432) BASOPHILS RELATIVE PERCENT 0 % (BEAKER) (test code = 437) NEUTROPHILS ABSOLUTE COUNT 5.33 K/ L 1.56-6.13 (BEAKER) (test code = 670) LYMPHOCYTES ABSOLUTE COUNT 1.48 K/ L 1.18-3.74 (BEAKER) (test code = 414) MONOCYTES ABSOLUTE COUNT (BEAKER) 0.73 K/ L 0.24-0.36 H (test code = 415) EOSINOPHILS ABSOLUTE COUNT 0.08 K/ L 0.04-0.36 (BEAKER) (test code = 416) BASOPHILS ABSOLUTE COUNT (BEAKER) 0.03 K/ L 0.01-0.08 (test code = 417) IMMATURE GRANULOCYTES-RELATIVE 1 % 0-1 PERCENT (BEAKER) (test code = 2801) BASIC METABOLIC [id number] 10:27:00 Test Item Value Reference Range Interpretation Comments SODIUM (BEAKER) 135 meq/L 136-145 L (test code = 381) POTASSIUM (BEAKER) 3.5 meq/L 3.5-5.1 (test code = 379) CHLORIDE (BEAKER) 102 meq/L 98-107 (test code = 382) CO2 (BEAKER) (test 24 meq/L 22-29 code = 355) BLOOD UREA NITROGEN 13 mg/dL 7-21 (BEAKER) (test code = 354) CREATININE (BEAKER) 0.68 mg/dL 0.57-1.25 (test code = 358) GLUCOSE RANDOM 158 mg/dL 70-105 H (BEAKER) (test code = 652) CALCIUM (BEAKER) 8.4 mg/dL 8.4-10.2 (test code = 697) EGFR (BEAKER) (test 104 mL/min/1.73 ESTIM ATED GFR IS code = 1092) sq m NOT ACCURATE CREATININE CLEARANCE IN PREDICTING GLOMERULAR FILTRATION RATE . ESTIMATED GFR I S NOT APPLICABLE FOR DIALYSIS PATIEN TS. Hydrodynamicist ID - EDASICBC W/PLT COUNT & AUTO [id number] 10:07:00 Test Item Value Reference Range Interpretation Comments WHITE BLOOD CELL COUNT (BEAKER) 6.7 K/ L 3.5-10.5 (test code = 775) RED BLOOD CELL COUNT (BEAKER) 2.68 M/ L 3.93-5.22 L (test code = 761) HEMOGLOBIN (BEAKER) (test code = 8.0 GM/DL 11.2-15.7 L 410) HEMATOCRIT (BEAKER) (test code = 24.7 % 34.1-44.9 L 411) MEAN CORPUSCULAR VOLUME (BEAKER) 92.2 fL 79.4-94.8 (test code = 753) MEAN CORPUSCULAR HEMOGLOBIN 29.9 pg 25.6-32.2 (BEAKER) (test code = 751) MEAN CORPUSCULAR HEMOGLOBIN CONC 32.4 GM/DL 32.2-35.5 (BEAKER) (test code = 752) RED CELL DISTRIBUTION WIDTH 13.7 % 11.7-14.4 (BEAKER) (test code = 412) PLATELET COUNT (BEAKER) (test 181 K/CU MM 150-450 code = 756) MEAN PLATELET VOLUME (BEAKER) 10.6 fL 9.4-12.3 (test code = 754) NUCLEATED RED BLOOD CELLS 1 /100 WBC 0-0 H (BEAKER) (test code = 413) NEUTROPHILS RELATIVE PERCENT 74 % (BEAKER) (test code = 429) LYMPHOCYTES RELATIVE PERCENT 15 % (BEAKER) (test code = 430) MONOCYTES RELATIVE PERCENT 9 % (BEAKER) (test code = 431) EOSINOPHILS RELATIVE PERCENT 2 % (BEAKER) (test code = 432) BASOPHILS RELATIVE PERCENT 0 % (BEAKER) (test code = 437) NEUTROPHILS ABSOLUTE COUNT 4.90 K/ L 1.56-6.13 (BEAKER) (test code = 670) LYMPHOCYTES ABSOLUTE COUNT 1.00 K/ L 1.18-3.74 L (BEAKER) (test code = 414) MONOCYTES ABSOLUTE COUNT (BEAKER) 0.57 K/ L 0.24-0.36 H (test code = 415) EOSINOPHILS ABSOLUTE COUNT 0.10 K/ L 0.04-0.36 (BEAKER) (test code = 416) BASOPHILS ABSOLUTE COUNT (BEAKER) 0.02 K/ L 0.01-0.08 (test code = 417) IMMATURE GRANULOCYTES-RELATIVE 1 % 0-1 PERCENT (BEAKER) (test code = 2801) 2D Echo W/Doppler(CW/PW/Color)2020-08-21 10:36:19Ejection FractionSLEH ECHO HEARTLAB MKJEREMY CPACSInterface, External Ris In - 08/21/2020 10:36 AM C STTransthoracic Echocardiography Report (TTE) Demographics Patient Name STEW, Date of Study 08/20/2020 ADRIANA Gender Female Visit Number [id number] Race Black Room Number 1114 Number Date of 1950 Referring Physician Jonathan Ragland MD Age 69 year(s) 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 [...] LV hypertrophy. All of the LV segments contractnormally . Global LV systolic function normal . LVEF by Gipson's method of disk assessment is normal (>60%) . The LVEF was measured using Gipson's bi-plane method of disk . Diastolic dysfunction is likely due to concomitant heart disease. Left Atrium LA size is mildly [...] of Valsalva diameter) is normal . Proximal ascendingaorta size is normal . Pericardium A trivial pericardial effusion is present . IVC/SVC/PA/PV/Pleural The estimated RA pressure by IVC dynamics 5- 10mmHg . Chambers/Structures Left Atrium LA Volume: 80.89 [...] TR Velocity: 2.55 m/s TR Gradient: 26 mmHgCHI Fresno Heart & Surgical HospitalBASI METABOLIC [id number] 10:29:00 Test Item Value Reference Range Interpretation Comments SODIUM (BEAKER) 134 meq/L 136-145 L (test code = 381) POTASSIUM (BEAKER) 3.9 meq/L 3.5-5.1 (test code = 379) CHLORIDE (BEAKER) 101 meq/L 98-107 (test code = 382) CO2 (BEAKER) (test 26 meq/L 22-29 code = 355) BLOOD UREA NITROGEN 24 mg/dL 7-21 H (BEAKER) (test code = 354) CREATININE (BEAKER) 0.77 mg/dL 0.57-1.25 (test code = 358) GLUCOSE RANDOM 130 mg/dL 70-105 H (BEAKER) (test code = 652) CALCIUM (BEAKER) 8.4 mg/dL 8.4-10.2 (test code = 697) EGFR (BEAKER) (test 90 mL/min/1.73 ESTIMA KIMBERLY GFR IS code = 1092) sq m NOT ACCURATE CREATININE CLEARANCE IN PREDICTING GLOMERULAR FILTRATION RATE . ESTIMATED GFR I S NOT APPLICABLE FOR DIALYSIS PATIEN TS. Hydrodynamicist ID - MARTINA CLactic Acid, [id number] 06:55:00 Test Item Value Reference Range Interpretation Comments Lactate, Art (test code = 1.5 mmol/L 0.5-2.2 2874) YAAKOV (test code = YAAKOV) Hydrodynamicist ID - DB Lab Interpretation (test Normal code = 07971-1) [facility]CT[facility]ID, [id number] 06:55:00 Test Item Value Reference Range Interpretation Comments LACTATE BLOOD ARTERIAL (2) 1.5 mmol/L 0.5-2.2 (BEAKER) (test code = 2874) Hydrodynamicist ID - DBCBC W/PLT COUNT & AUTO [id number] 06:47:00 Test Item Value Reference Range Interpretation Comments WHITE BLOOD CELL COUNT (BEAKER) 10.0 K/ L 3.5-10.5 (test code = 775) RED BLOOD CELL COUNT (BEAKER) 2.62 M/ L 3.93-5.22 L (test code = 761) HEMOGLOBIN (BEAKER) (test code = 7.7 GM/DL 11.2-15.7 L 410) HEMATOCRIT (BEAKER) (test code = 24.2 % 34.1-44.9 L 411) MEAN CORPUSCULAR VOLUME (BEAKER) 92.4 fL 79.4-94.8 (test code = 753) MEAN CORPUSCULAR HEMOGLOBIN 29.4 pg 25.6-32.2 (BEAKER) (test code = 751) MEAN CORPUSCULAR HEMOGLOBIN CONC 31.8 GM/DL 32.2-35.5 L (BEAKER) (test code = 752) RED CELL DISTRIBUTION WIDTH 13.3 % 11.7-14.4 (BEAKER) (test code = 412) PLATELET COUNT (BEAKER) (test 117 K/CU MM 150-450 L code = 756) MEAN PLATELET VOLUME (BEAKER) 11.2 fL 9.4-12.3 (test code = 754) NUCLEATED RED BLOOD CELLS 0 /100 WBC 0-0 (BEAKER) (test code = 413) NEUTROPHILS RELATIVE PERCENT 73 % (BEAKER) (test code = 429) LYMPHOCYTES RELATIVE PERCENT 14 % (BEAKER) (test code = 430) MONOCYTES RELATIVE PERCENT 12 % (BEAKER) (test code = 431) EOSINOPHILS RELATIVE PERCENT 0 % (BEAKER) (test code = 432) BASOPHILS RELATIVE PERCENT 0 % (BEAKER) (test code = 437) NEUTROPHILS ABSOLUTE COUNT 7.25 K/ L 1.56-6.13 H (BEAKER) (test code = 670) LYMPHOCYTES ABSOLUTE COUNT 1.38 K/ L 1.18-3.74 (BEAKER) (test code = 414) MONOCYTES ABSOLUTE COUNT (BEAKER) 1.23 K/ L 0.24-0.36 H (test code = 415) EOSINOPHILS ABSOLUTE COUNT 0.03 K/ L 0.04-0.36 L (BEAKER) (test code = 416) BASOPHILS ABSOLUTE COUNT (BEAKER) 0.03 K/ L 0.01-0.08 (test code = 417) IMMATURE GRANULOCYTES-RELATIVE 1 % 0-1 PERCENT (BEAKER) (test code = 2801) Calcium, [id number] 06:43:00 Test Item Value Reference Range Interpretation Comments Calcium, Ion (test code = 1993-3) 1.12 mmol/L 1.12-1.27 pH, Blood (test code = 06339-2) 7.41 [facility] CenterCALCIUM, [id number] 06:43:00 Test Item Value Reference Range Interpretation Comments CALCIUM IONIZED (BEAKER) (test 1.12 mmol/L 1.12-1.27 code = 698) PH, BLOOD (BEAKER) (test code = 7.41 1810) RAD, CHEST, 1 VIEW, NON [id number] 06:22:00while patient is intubated or has chest tubes.Reason for exam:->Status post CV SurgeryShould thisbe performed at the bedside?->Yes [facility] HARESHBLOSSOMADRIANA RUTHERFORD : 1950 Sex: FFINAL REPORT Chest one view. Clinical history: Status post CV Surgery Comparison: Chest radiograph 08/19/2020. Technique: A single frontal view of the chest was obtained. Findings:The patient is status post median sternotomy and cardiac surgery.The cardiomediastinal contours are stable. There are diffuse bilateral airspace opacities, mildly decreased. There are small bilateral pleural effusions. There is no pneumothorax. Signed: Santosh Grullon MDReport Verified Date/Time: 08/20/2020 06:22:53 XR chest 1 view portable / bedside 2020-08-20 06:22:00Interface, External Ris In - 08/20/2020 6:25 AM CSTFINAL REPORT Chest one view. Clinical history: Status post CV Surgery Comparison: Chest radiograph 08/19/2020. Technique: A single frontal view of the chest was obtained. Findings:The patient is status post median sternotomy and cardiac surgery.The cardiomediastinal contours are stable. There are diffuse bilateral airspace opacities, mildly decreased. There are small bilateral pleural effusions. There is no pneumothorax. Signed: Santosh Grullon Verified Date/Time: 08/20/2020 06:22:53 [facility] [id number] 15:13:00 Test Item Value Reference Range Interpretation Comments Magnesium (test code = 2.0 mg/dL 1.6-2.6 70473-9) YAAKOV (test code = YAAKOV) Hydrodynamicist ID - [facility] Lab Interpretation (test Normal code = 97409-4) [facility] CenterPhosphorus2020-11-12 15:13:00 Test Item Value Reference Range Interpretation Comments Phosphorus (test code = 2.2 mg/dL 2.3-4.7 L 2777-1) YAAKOV (test code = YAAKOV) Hydrodynamicist ID - PERRIS F Lab Interpretation (test Abnormal code = 78855-3) [facility] CenterBAS[facility] METABOLIC [id number] 15:13:00 Test Item Value Reference Range Interpretation Comments SODIUM (BEAKER) 136 meq/L 136-145 (test code = 381) POTASSIUM (BEAKER) 4.6 meq/L 3.5-5.1 (test code = 379) CHLORIDE (BEAKER) 103 meq/L 98-107 (test code = 382) CO2 (BEAKER) (test 24 meq/L 22-29 code = 355) BLOOD UREA NITROGEN 21 mg/dL 7-21 (BEAKER) (test code = 354) CREATININE (BEAKER) 0.80 mg/dL 0.57-1.25 (test code = 358) GLUCOSE RANDOM 129 mg/dL 70-105 H (BEAKER) (test code = 652) CALCIUM (BEAKER) 8.5 mg/dL 8.4-10.2 (test code = 697) EGFR (BEAKER) (test 86 mL/min/1.73 ESTIMA KIMBERLY GFR IS code = 1092) sq m NOT ACCURATE CREATININE CLEARANCE IN PREDICTING GLOMERULAR FILTRATION RATE . ESTIMATED GFR I S NOT APPLICABLE FOR DIALYSIS PATIEN TS. Hydrodynamicist ID Vivian DE SANTIAGO [id number] 15:13:00 Test Item Value Reference Range Interpretation Comments MAGNESIUM (BEAKER) (test code = 2.0 mg/dL 1.6-2.6 627) Hydrodynamicist ID Vivian DE SANTIAGO [id number] 15:13:00 Test Item Value Reference Range Interpretation Comments PHOSPHORUS (BEAKER) (test code = 2.2 mg/dL 2.3-4.7 L 604) Hydrodynamicist ID Vivian DE SANTIAGO FLactic acid, [id number] 15:01:00 Test Item Value Reference Range Interpretation Comments Lactate, Venous (test 3.11 mmol/L 0.5-2.2 H Specim en code = 2872) slightly hemolyzed YAAKOV (test code = YAAKOV) Hydrodynamicist ID Vivian DE SANTIAGO F Lab Interpretation Abnormal (test code = 01379-9) [facility] HospitalLA[facility] ACID, [id number] 15:01:00 Test Item Value Reference Range Interpretation Comments LACTATE BLOOD VENOUS 3.11 mmol/L 0.50-2.20 H Specime n slightly (2) (BEAKER) (test hemolyzed code = 2872) Hydrodynamicist BRANDON DE SANTIAGO FCBC W/PLT COUNT & AUTO [id number] 14:57:00 Test Item Value Reference Range Interpretation Comments WHITE BLOOD CELL COUNT (BEAKER) 10.4 K/ L 3.5-10.5 (test code = 775) RED BLOOD CELL COUNT (BEAKER) 2.89 M/ L 3.93-5.22 L (test code = 761) HEMOGLOBIN (BEAKER) (test code = 8.4 GM/DL 11.2-15.7 L 410) HEMATOCRIT (BEAKER) (test code = 27.2 % 34.1-44.9 L 411) MEAN CORPUSCULAR VOLUME (BEAKER) 94.1 fL 79.4-94.8 (test code = 753) MEAN CORPUSCULAR HEMOGLOBIN 29.1 pg 25.6-32.2 (BEAKER) (test code = 751) MEAN CORPUSCULAR HEMOGLOBIN CONC 30.9 GM/DL 32.2-35.5 L (BEAKER) (test code = 752) RED CELL DISTRIBUTION WIDTH 13.3 % 11.7-14.4 (BEAKER) (test code = 412) PLATELET COUNT (BEAKER) (test 106 K/CU MM 150-450 L code = 756) MEAN PLATELET VOLUME (BEAKER) 12.0 fL 9.4-12.3 (test code = 754) NUCLEATED RED BLOOD CELLS 0 /100 WBC 0-0 (BEAKER) (test code = 413) NEUTROPHILS RELATIVE PERCENT 74 % (BEAKER) (test code = 429) LYMPHOCYTES RELATIVE PERCENT 13 % (BEAKER) (test code = 430) MONOCYTES RELATIVE PERCENT 12 % (BEAKER) (test code = 431) EOSINOPHILS RELATIVE PERCENT 0 % (BEAKER) (test code = 432) BASOPHILS RELATIVE PERCENT 0 % (BEAKER) (test code = 437) NEUTROPHILS ABSOLUTE COUNT 7.72 K/ L 1.56-6.13 H (BEAKER) (test code = 670) LYMPHOCYTES ABSOLUTE COUNT 1.30 K/ L 1.18-3.74 (BEAKER) (test code = 414) MONOCYTES ABSOLUTE COUNT (BEAKER) 1.24 K/ L 0.24-0.36 H (test code = 415) EOSINOPHILS ABSOLUTE COUNT 0.01 K/ L 0.04-0.36 L (BEAKER) (test code = 416) BASOPHILS ABSOLUTE COUNT (BEAKER) 0.02 K/ L 0.01-0.08 (test code = 417) IMMATURE GRANULOCYTES-RELATIVE 1 % 0-1 PERCENT (BEAKER) (test code = 2800) CALCIUM, [id number] 14:51:00 Test Item Value Reference Range Interpretation Comments CALCIUM IONIZED (BEAKER) (test 1.12 mmol/L 1.12-1.27 code = 698) PH, BLOOD (BEAKER) (test code = 7.30 1810) RAD, CHEST, 1 VIEW, NON [id number] 02:59:00while patient is intubated or has chest tubes.Reason for exam:->Status post CV SurgeryShould thisbe performed at the bedside?->[facility] AD[facility]ANA MATHIAS : 1950 Sex: FFINAL REPORT RAD, CHEST, 1 VIEW, NON DEPT INDICATION: Status post CV Surgery COMPARISON: Prior day's exam FINDINGS: Portable frontal view of the chest. IMPRESSION: Support Lines: The bilateral chest tubes have been removed. Lungs and pleura: Moderately increased bilateral patchy airspace opacities, greater on the left, compatible with worsening edema. Small left pleural effusion is present. No pneumothorax.Heart and mediastinum: Stable contours.Additional findings: None. Signed: Bhupendra Avila [facility] Verified Date/Time: 08/19/2020 02:59:01 POC ACTIVATED CLOTTING [id number] 06:29:00 Test Item Value Reference Range Interpretation Comments Activated Clotting Time 92 sec : 74 -137 seconds, (test code = 441) Baseline: TESTED AT [address], [address]: Hydrodynamicist/Techni norm ID = [id number] for BHUPENDRA MENDIOLA [facility] CenterPOCT-[id number] 06:29:00 Test Item Value Reference Range Interpretation Comments ACTIVATED CLOTTING TIME 92 sec : 74 -137 seconds, (SALVADORAKER) (test code = Baseli ne: TESTED AT 441) [address], [facility] 30: Hydrodynamicist/Techni norm ID = [id number] for BE BHUPENDRA DOMINGUEZ [id number] 06:29:00 Test Item Value Reference Range Interpretation Comments ACTIVATED CLOTTING TIME 499 sec : 74 -137 seconds, (BEAKER) (test code = Baseli ne: TESTED AT 441) [address], [facility] 30: Hydrodynamicist/Techni norm ID = [id number] for BE BHUPENDRA DOMINGUEZ [id number] 06:29:00 Test Item Value Reference Range Interpretation Comments ACTIVATED CLOTTING TIME 555 sec : 74 -137 seconds, (BEAKER) (test code = Baseli ne: TESTED AT 441) [address], [address]: Hydrodynamicist/Techni norm ID = [id number] for BE BHUPENDRA DOMINGUEZ [id number] 06:29:00 Test Item Value Reference Range Interpretation Comments ACTIVATED CLOTTING TIME 439 sec : 74 -137 seconds, (BEAKER) (test code = Baseli ne: TESTED AT 441) [address], [address]: Hydrodynamicist/Techni norm ID = [id number] for BE BHUPENDRA DOMINGUEZ [id number] 06:29:00 Test Item Value Reference Range Interpretation Comments ACTIVATED CLOTTING TIME 472 sec : 74 -137 seconds, (BEAKER) (test code = Baseli ne: TESTED AT 441) [address], [facility] 30: Hydrodynamicist/Techni norm ID = [id number] for BHUPENDRA MENDIOLA RAD, CHEST, 1 VIEW, NON [id number] 05:19:00while patient is intubated or has chest tubes.Reason for exam:->Status post CV SurgeryShould thisbe performed at the bedside?->[facility] AD[facility] MATHIAS : 1950 Sex: FFINAL REPORT RAD, CHEST, 1 VIEW, NON DEPT INDICATION: Status post CV Surgery COMPARISON: Prior day's exam FINDINGS: Portable frontal view of the chest. IMPRESSION: Support Lines: Interval extubation and removal of the previously seen enteric tube. Otherwise unchanged support apparatus. Lungs and pleura: Increasing right basilar atelectasis. New Prominence of the left hilum possibly related to differences in technique versus worsening pulmonary vascular congestion. Trace bilateral medial apical pneumothoraces.Heart and mediastinum: Stable contours. Stable surgical changes.Additional findings: None. Signed: Natalia Trujillo MDReport Verified Date/Time: 08/18/202005:19:20 C METABOLIC [id number] 05:06:00 Test Item Value Reference Range Interpretation Comments SODIUM (BEAKER) 138 meq/L 136-145 (test code = 381) POTASSIUM (BEAKER) 4.1 meq/L 3.5-5.1 (test code = 379) CHLORIDE (BEAKER) 109 meq/L 98-107 H (test code = 382) CO2 (BEAKER) (test 22 meq/L 22-29 code = 355) BLOOD UREA NITROGEN 22 mg/dL 7-21 H (BEAKER) (test code = 354) CREATININE (BEAKER) 0.82 mg/dL 0.57-1.25 (test code = 358) GLUCOSE RANDOM 130 mg/dL 70-105 H (BEAKER) (test code = 652) CALCIUM (BEAKER) 8.0 mg/dL 8.4-10.2 L (test code = 697) EGFR (BEAKER) (test 84 mL/min/1.73 ESTIMA KIMBERLY GFR IS code = 1092) sq m NOT ACCURATE CREATININE CLEARANCE IN PREDICTING GLOMERULAR FILTRATION RATE . ESTIMATED GFR I S NOT APPLICABLE FOR DIALYSIS PATIEN TS. Hydrodynamicist ID - [id number] 05:06:00 Test Item Value Reference Range Interpretation Comments MAGNESIUM (BEAKER) (test code = 2.3 mg/dL 1.6-2.6 627) Hydrodynamicist ID - [id number] 05:06:00 Test Item Value Reference Range Interpretation Comments PHOSPHORUS (BEAKER) (test code = 4.1 mg/dL 2.3-4.7 604) Hydrodynamicist ID - EDASILACTIC ACID, [id number] 04:31:00 Test Item Value Reference Range Interpretation Comments LACTATE BLOOD 2.4 mmol/L 0.5-2.2 H Specimen sligh tly ARTERIAL (2) (BEAKER) hemoly zed (test code = 2874) Hydrodynamicist ID - BSCBC W/PLT COUNT & AUTO [id number] 04:27:00 Test Item Value Reference Range Interpretation Comments WHITE BLOOD CELL COUNT (BEAKER) 8.6 K/ L 3.5-10.5 (test code = 775) RED BLOOD CELL COUNT (BEAKER) 3.06 M/ L 3.93-5.22 L (test code = 761) HEMOGLOBIN (BEAKER) (test code = 8.8 GM/DL 11.2-15.7 L 410) HEMATOCRIT (BEAKER) (test code = 28.0 % 34.1-44.9 L 411) MEAN CORPUSCULAR VOLUME (BEAKER) 91.5 fL 79.4-94.8 (test code = 753) MEAN CORPUSCULAR HEMOGLOBIN 28.8 pg 25.6-32.2 (BEAKER) (test code = 751) MEAN CORPUSCULAR HEMOGLOBIN CONC 31.4 GM/DL 32.2-35.5 L (BEAKER) (test code = 752) RED CELL DISTRIBUTION WIDTH 13.4 % 11.7-14.4 (BEAKER) (test code = 412) PLATELET COUNT (BEAKER) (test 108 K/CU MM 150-450 L code = 756) MEAN PLATELET VOLUME (BEAKER) 12.2 fL 9.4-12.3 (test code = 754) NUCLEATED RED BLOOD CELLS 0 /100 WBC 0-0 (BEAKER) (test code = 413) NEUTROPHILS RELATIVE PERCENT 76 % (BEAKER) (test code = 429) LYMPHOCYTES RELATIVE PERCENT 14 % (BEAKER) (test code = 430) MONOCYTES RELATIVE PERCENT 10 % (BEAKER) (test code = 431) EOSINOPHILS RELATIVE PERCENT 0 % (BEAKER) (test code = 432) BASOPHILS RELATIVE PERCENT 0 % (BEAKER) (test code = 437) NEUTROPHILS ABSOLUTE COUNT 6.52 K/ L 1.56-6.13 H (BEAKER) (test code = 670) LYMPHOCYTES ABSOLUTE COUNT 1.20 K/ L 1.18-3.74 (BEAKER) (test code = 414) MONOCYTES ABSOLUTE COUNT (BEAKER) 0.84 K/ L 0.24-0.36 H (test code = 415) EOSINOPHILS ABSOLUTE COUNT 0.02 K/ L 0.04-0.36 L (BEAKER) (test code = 416) BASOPHILS ABSOLUTE COUNT (BEAKER) 0.03 K/ L 0.01-0.08 (test code = 417) IMMATURE GRANULOCYTES-RELATIVE 0 % 0-1 PERCENT (BEAKER) (test code = 2801) Blood gas, [id number] 04:15:00 Test Item Value Reference Range Interpretation Comments pH, Arterial (test code = 2744-1) 7.42 7.35-7.45 pCO2, Arterial (test code = 35 35- 45 mm Hg 2019-05) pO2, Arterial (test code = 86 80- 90 mm Hg 3-7) O2 Sat, Arterial (test code = 96.8 % 96-97 2708-6) HCO3, Arterial (test code = 22 mmol/L 21-29 1960-4) Base Excess, Arterial (test code -1.7 mmol/L -2-3 = 1925-7) Patient Temperature (test code = 36.9 8310-5) FIO2 (test code = 1819) [address] [place], [place] [address]CALCIUM, [id number] 04:15:00 Test Item Value Reference Range Interpretation Comments CALCIUM IONIZED (BEAKER) (test 1.08 mmol/L 1.12-1.27 L code = 698) PH, BLOOD (BEAKER) (test code = 7.42 1810) BLOOD GAS, [id number] 04:15:00 Test Item Value Reference Range Interpretation Comments PH ARTERIAL (BEAKER) (test code = 7.42 7.35-7.45 383) PCO2 ARTERIAL (BEAKER) (test code 35 mm Hg 35-45 = 384) PO2 ARTERIAL (BEAKER) (test code 86 mm Hg 80-90 = 385) O2 SATURATION ARTERIAL (BEAKER) 96.8 % 96.0-97.0 (test code = 386) HCO3 ARTERIAL (BEAKER) (test code 22 mmol/L 21-29 = 388) BASE EXCESS ARTERIAL (BEAKER) -1.7 mmol/L -2.0-3.0 (test code = 387) PATIENT TEMPERATURE (BEAKER) 36.9 (test code = 1818) FIO2 (BEAKER) (test code = 1819) 32.0 POC-Glucose [id number] 22:46:00 Test Item Value Reference Range Interpretation Comments POC-Glucose Meter (test 123 mg/dL 70-110 H : TE STED AT [facility] code = 1538) [address] [facility], 770 30: Hydrodynamicist/Techni norm ID = [id number] for AYAAN BOWMAN [place] Lab Interpretation (test Abnormal code = 53687-4) [facility] [id number] 22:46:00 Test Item Value Reference Range Interpretation Comments POC-GLUCOSE METER 123 mg/dL 70-110 H : TESTED A T [facility] 6720 (BEAKER) (test code = ANGELO R [facility], 1538) [address]: Hydrodynamicist/Techni norm ID = [id number] for DIANE MCCOLLUM BASIC METABOLIC [id number] 20:41:00 Test Item Value Reference Range Interpretation Comments SODIUM (BEAKER) 138 meq/L 136-145 (test code = 381) POTASSIUM (BEAKER) 4.1 meq/L 3.5-5.1 (test code = 379) CHLORIDE (BEAKER) 108 meq/L 98-107 H (test code = 382) CO2 (BEAKER) (test 21 meq/L 22-29 L code = 355) BLOOD UREA NITROGEN 22 mg/dL 7-21 H (BEAKER) (test code = 354) CREATININE (BEAKER) 0.79 mg/dL 0.57-1.25 (test code = 358) GLUCOSE RANDOM 144 mg/dL 70-105 H (BEAKER) (test code = 652) CALCIUM (BEAKER) 8.2 mg/dL 8.4-10.2 L (test code = 697) EGFR (BEAKER) (test 87 mL/min/1.73 ESTIMA KIMBERLY GFR IS code = 1092) sq m NOT ACCURATE CREATININE CLEARANCE IN PREDICTING GLOMERULAR FILTRATION RATE . ESTIMATED GFR I S NOT APPLICABLE FOR DIALYSIS PATIEN TS. Hydrodynamicist ID - [id number] 20:41:00 Test Item Value Reference Range Interpretation Comments MAGNESIUM (BEAKER) (test code = 1.9 mg/dL 1.6-2.6 627) Hydrodynamicist ID - BSLACTIC ACID, [id number] 20:37:00 Test Item Value Reference Range Interpretation Comments LACTATE BLOOD ARTERIAL (2) 1.2 mmol/L 0.5-2.2 (BEAKER) (test code = 2874) Hydrodynamicist ID - BSCBC W/PLT COUNT & AUTO [id number] 20:28:00 Test Item Value Reference Range Interpretation Comments WHITE BLOOD CELL COUNT (BEAKER) 10.1 K/ L 3.5-10.5 (test code = 775) RED BLOOD CELL COUNT (BEAKER) 3.34 M/ L 3.93-5.22 L (test code = 761) HEMOGLOBIN (BEAKER) (test code = 9.7 GM/DL 11.2-15.7 L 410) HEMATOCRIT (BEAKER) (test code = 30.3 % 34.1-44.9 L 411) MEAN CORPUSCULAR VOLUME (BEAKER) 90.7 fL 79.4-94.8 (test code = 753) MEAN CORPUSCULAR HEMOGLOBIN 29.0 pg 25.6-32.2 (BEAKER) (test code = 751) MEAN CORPUSCULAR HEMOGLOBIN CONC 32.0 GM/DL 32.2-35.5 L (BEAKER) (test code = 752) RED CELL DISTRIBUTION WIDTH 13.3 % 11.7-14.4 (BEAKER) (test code = 412) PLATELET COUNT (BEAKER) (test 127 K/CU MM 150-450 L code = 756) MEAN PLATELET VOLUME (BEAKER) 11.0 fL 9.4-12.3 (test code = 754) NUCLEATED RED BLOOD CELLS 0 /100 WBC 0-0 (BEAKER) (test code = 413) NEUTROPHILS RELATIVE PERCENT 82 % (BEAKER) (test code = 429) LYMPHOCYTES RELATIVE PERCENT 8 % (BEAKER) (test code = 430) MONOCYTES RELATIVE PERCENT 8 % (BEAKER) (test code = 431) EOSINOPHILS RELATIVE PERCENT 0 % (BEAKER) (test code = 432) BASOPHILS RELATIVE PERCENT 0 % (BEAKER) (test code = 437) NEUTROPHILS ABSOLUTE COUNT 8.31 K/ L 1.56-6.13 H (BEAKER) (test code = 670) LYMPHOCYTES ABSOLUTE COUNT 0.85 K/ L 1.18-3.74 L (BEAKER) (test code = 414) MONOCYTES ABSOLUTE COUNT (BEAKER) 0.82 K/ L 0.24-0.36 H (test code = 415) EOSINOPHILS ABSOLUTE COUNT 0.04 K/ L 0.04-0.36 (BEAKER) (test code = 416) BASOPHILS ABSOLUTE COUNT (BEAKER) 0.01 K/ L 0.01-0.08 (test code = 417) IMMATURE GRANULOCYTES-RELATIVE 1 % 0-1 PERCENT (BEAKER) (test code = 2801) BLOOD GAS, [id number] 20:25:00 Test Item Value Reference Range Interpretation Comments PH ARTERIAL (BEAKER) (test code = 7.39 7.35-7.45 383) PCO2 ARTERIAL (BEAKER) (test code 37 mm Hg 35-45 = 384) PO2 ARTERIAL (BEAKER) (test code 131 mm Hg 80-90 H = 385) O2 SATURATION ARTERIAL (BEAKER) 98.6 % 96.0-97.0 H (test code = 386) HCO3 ARTERIAL (BEAKER) (test code 22 mmol/L 21-29 = 388) BASE EXCESS ARTERIAL (BEAKER) -2.9 mmol/L -2.0-3.0 L (test code = 387) PATIENT TEMPERATURE (BEAKER) 36.7 (test code = 1818) FIO2 (BEAKER) (test code = 1819) 28.0 BLOOD GAS, [id number] 19:28:00 Test Item Value Reference Range Interpretation Comments PH ARTERIAL (BEAKER) (test code = 7.44 7.35-7.45 383) PCO2 ARTERIAL (BEAKER) (test code 31 mm Hg 35-45 L = 384) PO2 ARTERIAL (BEAKER) (test code 97 mm Hg 80-90 H = 385) O2 SATURATION ARTERIAL (BEAKER) 97.8 % 96.0-97.0 H (test code = 386) HCO3 ARTERIAL (BEAKER) (test code 21 mmol/L 21-29 = 388) BASE EXCESS ARTERIAL (BEAKER) -2.6 mmol/L -2.0-3.0 L (test code = 387) PATIENT TEMPERATURE (BEAKER) 36.7 (test code = 1818) FIO2 (BEAKER) (test code = 1819) 40.0 POCT-GLUCOSE [id number] 18:18:00 Test Item Value Reference Range Interpretation Comments POC-GLUCOSE METER 123 mg/dL 70-110 H : TESTED A T [facility] 6720 (BEAKER) (test code [facility], = 1538) 55261: Hydrodynamicist/Techni norm ID = [id number] for RAY TO, CHRISTIMARIE POCT-GLUCOSE [id number] 17:31:00 Test Item Value Reference Range Interpretation Comments POC-GLUCOSE METER 118 mg/dL 70-110 H : TESTED A T [facility] 6720 (BEAKER) (test code [facility], = 1538) 98245: Hydrodynamicist/Techni norm ID = [id number] for RAY TO, CHRISTIMARIE POCT-GLUCOSE [id number] 16:22:00 Test Item Value Reference Range Interpretation Comments POC-GLUCOSE METER 103 mg/dL 70-110 : TESTED A T [facility] 6720 (BEAKER) (test code [facility], = 1538) 13922: Hydrodynamicist/Techni norm ID = [id number] for RAY TO, CHRISTIMARIE [id number] 15:41:00 Test Item Value Reference Range Interpretation Comments PHOSPHORUS (BEAKER) 2.7 mg/dL 2.3-4.7 Specimen slightly (test code = 604) hemolyzed Hydrodynamicist ID - BSPOCT-GLUCOSE [id number] 15:38:00 Test Item Value Reference Range Interpretation Comments POC-GLUCOSE METER 106 mg/dL 70-110 : TESTED A T [facility] 6720 (BEAKER) (test code [facility], = 1538) 72547: Hydrodynamicist/Techni norm ID = [id number] for RAY TO, CHRISTIMARIE CBC W/PLT COUNT & AUTO [id number] 14:47:00 Test Item Value Reference Range Interpretation Comments WHITE BLOOD CELL COUNT (BEAKER) 12.7 K/ L 3.5-10.5 H (test code = 775) RED BLOOD CELL COUNT (BEAKER) 3.05 M/ L 3.93-5.22 L (test code = 761) HEMOGLOBIN (BEAKER) (test code = 9.0 GM/DL 11.2-15.7 L 410) HEMATOCRIT (BEAKER) (test code = 27.7 % 34.1-44.9 L 411) MEAN CORPUSCULAR VOLUME (BEAKER) 90.8 fL 79.4-94.8 (test code = 753) MEAN CORPUSCULAR HEMOGLOBIN 29.5 pg 25.6-32.2 (BEAKER) (test code = 751) MEAN CORPUSCULAR HEMOGLOBIN CONC 32.5 GM/DL 32.2-35.5 (BEAKER) (test code = 752) RED CELL DISTRIBUTION WIDTH 13.2 % 11.7-14.4 (BEAKER) (test code = 412) PLATELET COUNT (BEAKER) (test 120 K/CU MM 150-450 L code = 756) MEAN PLATELET VOLUME (BEAKER) 11.5 fL 9.4-12.3 (test code = 754) NUCLEATED RED BLOOD CELLS 0 /100 WBC 0-0 (BEAKER) (test code = 413) NEUTROPHILS RELATIVE PERCENT 78 % (BEAKER) (test code = 429) LYMPHOCYTES RELATIVE PERCENT 14 % (BEAKER) (test code = 430) MONOCYTES RELATIVE PERCENT 6 % (BEAKER) (test code = 431) EOSINOPHILS RELATIVE PERCENT 1 % (BEAKER) (test code = 432) BASOPHILS RELATIVE PERCENT 0 % (BEAKER) (test code = 437) NEUTROPHILS ABSOLUTE COUNT 9.98 K/ L 1.56-6.13 H (BEAKER) (test code = 670) LYMPHOCYTES ABSOLUTE COUNT 1.76 K/ L 1.18-3.74 (BEAKER) (test code = 414) MONOCYTES ABSOLUTE COUNT (BEAKER) 0.71 K/ L 0.24-0.36 H (test code = 415) EOSINOPHILS ABSOLUTE COUNT 0.13 K/ L 0.04-0.36 (BEAKER) (test code = 416) BASOPHILS ABSOLUTE COUNT (BEAKER) 0.02 K/ L 0.01-0.08 (test code = 417) IMMATURE GRANULOCYTES-RELATIVE 1 % 0-1 PERCENT (BEAKER) (test code = 2802) BASIC METABOLIC [id number] 14:38:00 Test Item Value Reference Range Interpretation Comments SODIUM (BEAKER) 139 meq/L 136-145 (test code = 381) POTASSIUM (BEAKER) 4.0 meq/L 3.5-5.1 Specimen slightly (test code = 379) hemolyzed CHLORIDE (BEAKER) 110 meq/L 98-107 H (test code = 382) CO2 (BEAKER) (test 23 meq/L 22-29 code = 355) BLOOD UREA NITROGEN 23 mg/dL 7-21 H (BEAKER) (test code = 354) CREATININE (BEAKER) 0.81 mg/dL 0.57-1.25 Specimen slightly (test code = 358) hemolyzed GLUCOSE RANDOM 161 mg/dL 70-105 H (BEAKER) (test code = 652) CALCIUM (BEAKER) 8.0 mg/dL 8.4-10.2 L (test code = 697) EGFR (BEAKER) (test 85 mL/min/1.73 ESTIMA KIMBERLY GFR IS code = 1092) sq m NOT ACCURATE CREATININE CLEARANCE IN PREDICTING GLOMERULAR FILTRATION RATE . ESTIMATED GFR I S NOT APPLICABLE FOR DIALYSIS PATIEN TS. Hydrodynamicist ID Vivian DE SANTIAGO [id number] 14:36:00 Test Item Value Reference Range Interpretation Comments MAGNESIUM (BEAKER) 1.5 mg/dL 1.6-2.6 L Specimen slightly (test code = 627) hemolyzed Hydrodynamicist ID Vivian DE SANTIAGO FLACTIC ACID, [id number] 14:33:00 Test Item Value Reference Range Interpretation Comments LACTATE BLOOD 1.7 mmol/L 0.5-2.2 Specimen sligh tly ARTERIAL (2) (BEAKER) hemoly zed (test code = 2874) Hydrodynamicist ID Vivian DE SANTIAGO FBLOOD GAS, [id number] 14:22:00 Test Item Value Reference Range Interpretation Comments PH ARTERIAL (BEAKER) (test code = 7.45 7.35-7.45 383) PCO2 ARTERIAL (BEAKER) (test code 34 mm Hg 35-45 L = 384) PO2 ARTERIAL (BEAKER) (test code 164 mm Hg 80-90 H = 385) O2 SATURATION ARTERIAL (BEAKER) 99.2 % 96.0-97.0 H (test code = 386) HCO3 ARTERIAL (BEAKER) (test code 24 mmol/L 21-29 = 388) BASE EXCESS ARTERIAL (BEAKER) -0.3 mmol/L -2.0-3.0 (test code = 387) PATIENT TEMPERATURE (BEAKER) 36.4 (test code = 1818) FIO2 (BEAKER) (test code = 1819) 60.0 Oxygen saturation, [id number] 14:16:00 Test Item Value Reference Range Interpretation Comments O2 Saturation (Measured) (test code = 66.4 % 53011-6) [facility] SATURATION, [id number] 14:16:00 Test Item Value Reference Range Interpretation Comments O2 SATURATION (MEASURED) (BEAKER) 66.4 % (test code = 1455) RAD, CHEST, 1 VIEW, NON [id number] 14:16:00Reason for exam:->Status post CV Surgery post op day 0Should this be performed at the bedside?->Yes [facility] : 1950 Sex: FFINAL REPORT RAD, CHEST, 1 VIEW, NON DEPT INDICATION: Status post CV Surgery post op day 0 COMPARISON: Prior day's exam FINDINGS: Portable frontal view of the chest. IMPRESSION: Support Lines: Right-sided central catheter tip overlies the atriocaval junction. Bilateralchest tubes. ET tube tip is 3 cm superior to the john. NG tube descends below the diaphragm. Lungsand pleura: Unchanged airspace and pleural opacities. No pneumothorax.Heart and mediastinum: Stable contours. Stable surgical changes.Additional findings: None. Signed: Omayra Lock MDReport Verified Date/Time: 08/17/2020 14:16:32 Reading Location: [facility] Radiology Reading Room Electrocardiogram, 12-lead 2020-08-17 13:48:35Interface, External Ris In - 08/17/2020 1:48 PM CSTVentricular Rate 83 BPMAtrial Rate 83 BPMP-R Interval 202 msQRS Duration 80 msQ-T Interval 412 msQTC Calculation(Bazett) 484 msP Dixon 63 degreesR Dixon -30 degreesT Dixon 30 degreesNormal sinus rhythmPossible Left atrial enlargementLeft axis deviationNonspecific T wave abnormalityProlonged QTAbnormal ECGNo previous ECGs availableConfirmed by MD SANDRINE, SHAWN ([id number]) on 08/17/2020 1:48:32 PM [facility] ([facility]&H)-Stat [id number] 12:38:00 Test Item Value Reference Range Interpretation Comments Hemoglobin (test code = 786-4) 8.4 12.0- 15.0 GM/DL L Hematocrit (test code = 4544-3) 25.0 % 36-45 L Lab Interpretation (test code = Abnormal 14603-9) [facility]Stat [id number] 12:38:00 Test Item Value Reference Range Interpretation Comments Glucose (test code = 2345-7) 206 mg/dL 70-110 H Lab Interpretation (test code = Abnormal 19511-3) [facility] [id number] 12:38:00 Test Item Value Reference Range Interpretation Comments Sodium (test code = 2951-2) 133 meq/L 136-145 L Lab Interpretation (test code = Abnormal 51983-1) [facility] [id number] 12:38:00 Test Item Value Reference Range Interpretation Comments Potassium (test code = 2823-3) 5.0 meq/L 3.6-5.5 Lab Interpretation (test code = Normal 02441-3) [facility] CenterPOTASSIUM-STAT [id number] 12:38:00 Test Item Value Reference Range Interpretation Comments POTASSIUM (BEAKER) (test code = 5.0 meq/L 3.6-5.5 379) BLOOD GAS, [id number] 12:38:00 Test Item Value Reference Range Interpretation Comments PH ARTERIAL (BEAKER) (test code = 7.42 7.35-7.45 383) PCO2 ARTERIAL (BEAKER) (test code 35 mm Hg 35-45 = 384) PO2 ARTERIAL (BEAKER) (test code 178 mm Hg 80-90 H = 385) O2 SATURATION ARTERIAL (BEAKER) 99.3 % 96.0-97.0 H (test code = 386) HCO3 ARTERIAL (BEAKER) (test code 22 mmol/L 21-29 = 388) BASE EXCESS ARTERIAL (BEAKER) -2.0 mmol/L -2.0-3.0 (test code = 387) PATIENT TEMPERATURE (BEAKER) 36.0 (test code = 1818) FIO2 (BEAKER) (test code = 1819) 60.0 GLUCOSE-STAT [id number] 12:38:00 Test Item Value Reference Range Interpretation Comments GLUCOSE RANDOM (BEAKER) (test code 206 mg/dL 70-110 H = 652) CALCIUM, [id number] 12:38:00 Test Item Value Reference Range Interpretation Comments CALCIUM IONIZED (BEAKER) (test 1.11 mmol/L 1.12-1.27 L code = 698) PH, BLOOD (BEAKER) (test code = 7.41 1810) SODIUM NA-STAT [id number] 12:38:00 Test Item Value Reference Range Interpretation Comments SODIUM (BEAKER) (test code = 381) 133 meq/L 136-145 L HGB/HCT (H&H) - STAT [id number] 12:38:00 Test Item Value Reference Range Interpretation Comments HEMOGLOBIN (BEAKER) (test code = 8.4 GM/DL 12.0-15.0 L 410) HEMATOCRIT (BEAKER) (test code = 25.0 % 36.0-45.0 L 411) POTASSIUM-STAT [id number] 11:52:00 Test Item Value Reference Range Interpretation Comments POTASSIUM (BEAKER) (test code = 6.2 meq/L 3.6-5.5 HH 379) BLOOD GAS, [id number] 11:51:00 Test Item Value Reference Range Interpretation Comments PH ARTERIAL (BEAKER) (test code = 7.38 7.35-7.45 383) PCO2 ARTERIAL (BEAKER) (test code 41 mm Hg 35-45 = 384) PO2 ARTERIAL (BEAKER) (test code 280 mm Hg 80-90 H = 385) O2 SATURATION ARTERIAL (BEAKER) 99.6 % 96.0-97.0 H (test code = 386) HCO3 ARTERIAL (BEAKER) (test code 24 mmol/L 21-29 = 388) BASE EXCESS ARTERIAL (BEAKER) -1.6 mmol/L -2.0-3.0 (test code = 387) PATIENT TEMPERATURE (BEAKER) 35.0 (test code = 1818) FIO2 (BEAKER) (test code = 1819) 65.0 SODIUM NA-STAT [id number] 11:51:00 Test Item Value Reference Range Interpretation Comments SODIUM (BEAKER) (test code = 381) 132 meq/L 136-145 L GLUCOSE-STAT [id number] 11:51:00 Test Item Value Reference Range Interpretation Comments GLUCOSE RANDOM (BEAKER) (test code 238 mg/dL 70-110 H = 652) HGB/HCT (H&H) - STAT [id number] 11:51:00 Test Item Value Reference Range Interpretation Comments HEMOGLOBIN (BEAKER) (test code = 7.8 GM/DL 12.0-15.0 L 410) HEMATOCRIT (BEAKER) (test code = 23.0 % 36.0-45.0 L 411) [id number] 11:05:16Seema Live MD 08/17/2020 12:34 PMTEE Date: 08/17/2020 12:33 PM Sex: Female Location: OR Requesting Physician: Bhupendra Andujar MD Examiner: Seema Live MDDuong, Kevin Win Indication: CMP Intubated Sedated Patient screened for esoph disease: Yes Insertion: easy Probe Type: multiplane Modalities: 2D, CFM, CWD, Contrast and PWD Inotrope: NO Pre Intervention Summary: Aorta: No aneurysm, no dissection, no mobile plaquesAV: trileaflet morphology, no aortic stenosis, no aortic regurgitationLV: normal chamber size , mild LVH, normal systolic function (EF 50% by qualitative assessment), no RWMA, no thrombus. Grade I diastolic dysfunction (E/E' 5.8, E/A 0.8, lat E', PV S<D)MV: normal morphology, trace mitral regurgitation, no mitral stenosisLA: no PURA thrombus, normal size and functionPV: limited visualizationRV: normal sized chamber, normal function, no thrombusTV: normal morphology, trace tricuspid regurgitationRA: no thrombus No PFO by color dopper flow All findings communicated to surgical team. Post Intervention Summary: [facility] CenterBlood gas, [id number] 10:48:00 Test Item Value Reference Range Interpretation Comments pH, Aftab (test code = 2746-6) 7.35 7.32-7.42 pCO2, Aftab (test code = 755) 44 41- 51 mm Hg pO2, Aftab (test code = 2705-2) 44 25- 40 mm Hg H O2 Sat, Aftab (test code = 2711-0) 84.4 % 40-70 H HCO3, Aftab (test code = 43965-1) 25 mmol/L 21-29 Base Excess, Aftab (test code = -1.9 mmol/L -2-3 1927-3) Patient Temperature (test code = 34.0 8310-5) FIO2 (test code = 1819) 60 Lab Interpretation (test code = Abnormal 44403-9) [facility] CenterBLOOD GAS, [id number] 10:48:00 Test Item Value Reference Range Interpretation Comments PH VENOUS (BEAKER) (test code = 7.35 7.32-7.42 701) PCO2 VENOUS (BEAKER) (test code = 44 mm Hg 41-51 755) PO2 VENOUS (BEAKER) (test code = 44 mm Hg 25-40 H 702) O2 SATURATION VENOUS (BEAKER) 84.4 % 40.0-70.0 H (test code = 703) HCO3 VENOUS (BEAKER) (test code = 25 mmol/L 21-29 705) BASE EXCESS VENOUS (BEAKER) (test -1.9 mmol/L -2.0-3.0 code = 704) PATIENT TEMPERATURE (BEAKER) 34.0 (test code = 1818) FIO2 (BEAKER) (test code = 1819) 60.0 POTASSIUM-STAT [id number] 10:48:00 Test Item Value Reference Range Interpretation Comments POTASSIUM (BEAKER) (test code = 5.4 meq/L 3.6-5.5 379) BLOOD GAS, [id number] 10:48:00 Test Item Value Reference Range Interpretation Comments PH ARTERIAL (BEAKER) (test code = 7.38 7.35-7.45 383) PCO2 ARTERIAL (BEAKER) (test code 40 mm Hg 35-45 = 384) PO2 ARTERIAL (BEAKER) (test code 239 mm Hg 80-90 H = 385) O2 SATURATION ARTERIAL (BEAKER) 99.5 % 96.0-97.0 H (test code = 386) HCO3 ARTERIAL (BEAKER) (test code 24 mmol/L 21-29 = 388) BASE EXCESS ARTERIAL (BEAKER) -2.0 mmol/L -2.0-3.0 (test code = 387) PATIENT TEMPERATURE (BEAKER) 34.0 (test code = 1818) FIO2 (BEAKER) (test code = 1819) 60.0 SODIUM NA-STAT [id number] 10:48:00 Test Item Value Reference Range Interpretation Comments SODIUM (BEAKER) (test code = 381) 131 meq/L 136-145 L GLUCOSE-STAT [id number] 10:48:00 Test Item Value Reference Range Interpretation Comments GLUCOSE RANDOM (BEAKER) (test code 208 mg/dL 70-110 H = 652) HGB/HCT (H&H) - STAT [id number] 10:48:00 Test Item Value Reference Range Interpretation Comments HEMOGLOBIN (BEAKER) (test code = 7.7 GM/DL 12.0-15.0 L 410) HEMATOCRIT (BEAKER) (test code = 23.0 % 36.0-45.0 L 411) BLOOD GAS, [id number] 08:25:00 Test Item Value Reference Range Interpretation Comments PH ARTERIAL (BEAKER) (test code = 7.46 7.35-7.45 H 383) PCO2 ARTERIAL (BEAKER) (test code 36 mm Hg 35-45 = 384) PO2 ARTERIAL (BEAKER) (test code = 386 mm Hg 80-90 H 385) O2 SATURATION ARTERIAL (BEAKER) 99.8 % 96.0-97.0 H (test code = 386) HCO3 ARTERIAL (BEAKER) (test code 25 mmol/L 21-29 = 388) BASE EXCESS ARTERIAL (BEAKER) 1.0 mmol/L -2.0-3.0 (test code = 387) PATIENT TEMPERATURE (BEAKER) (test 36.0 code = 1818) FIO2 (BEAKER) (test code = 1819) 90.0 GLUCOSE-STAT [id number] 08:25:00 Test Item Value Reference Range Interpretation Comments GLUCOSE RANDOM (BEAKER) (test code 127 mg/dL 70-110 H = 652) SODIUM NA-STAT [id number] 08:24:00 Test Item Value Reference Range Interpretation Comments SODIUM (BEAKER) (test code = 381) 136 meq/L 136-145 POTASSIUM-STAT [id number] 08:24:00 Test Item Value Reference Range Interpretation Comments POTASSIUM (BEAKER) (test code = 4.3 meq/L 3.6-5.5 379) HGB/HCT (H&H) - STAT [id number] 08:24:00 Test Item Value Reference Range Interpretation Comments HEMOGLOBIN (BEAKER) (test code = 12.6 GM/DL 12.0-15.0 410) HEMATOCRIT (BEAKER) (test code = 37.0 % 36.0-45.0 411) Carotid doppler [id number] 07:58:50Ejection FractionSLEH ECHO HEARTLAB MKCKESSON CPACSRight Impression1. There is <50% diameter reduction (approximately 20% by 2-D measurement)in the internal carotid artery with a peak velocity of 75.6/30.5 cm/sec andheterogeneous plaque.2. There is non-occluding plaque in the external carotid artery.3. There is non-occluding plaque in the common carotid artery.4. The vertebral artery flow is antegrade and normal.5. The subclavian artery is within normal limits where visualized.Left Impression1. There is <50% diameter reduction (approximately 15% by 2-D measurement)in the internal carotid artery with a peak velocity of 42.0/17.7 cm/sec andheterogeneous plaque.2. There is non-occluding plaque in the external carotid artery.3. There is non-occluding plaque in the common carotid artery.4. The ve rtebral artery flow is antegrade and normal.5. The subclavian artery is within normal limits [...] were patent with normal flow bilaterally where visualized. Signature Velocities are measured in cm/s ; Diameters are measured in cm Carotid Right Measurements+ +----+----+-----+ + +---- -------+!Location !PSV !EDV !Angle!%Stenosis 2D!%Stenosis Doppler!Tortuosity !+ +-- --+----+-----+ + + +!Prox CCA !72.7!26.4!60 ! ! ! !+ +----+----+-----+ + +----- ------+!Dist CCA !90.3!32.8!60 ! ! ! !+ +- ---+----+-----+ + + +!Prox ICA !75.6!30.5!60 !20% !<50% ! !+ +----+----+-----+ + +- +!Dist ICA !48.4!21.1!0 ! ! ! !+ --+----+----+-----+ + + +!Prox ECA !85.6!18.8!60 ! ! ! !+ +----+----+-----+ + + +!Vertebral !42.8!18.9!60 ! ! ! !+ ---+----+----+-----+ + + +!Prox Subclavian!151 ! !60 ! ! ! !+ +----+----+-----+ + + + - There is antegrade vertebral flow noted on the right side. - Additional Measurements:ICAPSV/CCAPSV 0.84.ICAEDV/CCAEDV 1.16. Carotid Left Measurements+ +----+----+-----+ + + +!Location !PSV !EDV !Angle!%Stenosis 2D!%Stenosis Doppler!Tortuosity !+ +----+----+-----+ + + +!Pr ox CCA !82.7!23.5!60 ! ! ! !+ +----+----+----- + + + +!Dist CCA !77.4!26.4!60 ! ! ! !+ +----+----+-----+ + + +!Pr oxICA !42 !17.7!60 !15% !<50% ! !+ +----+----+- ----+ + + +!Dist ICA !101 !41.6!60 ! ! ! !+ +----+----+-----+ + + +!P saniya ECA !81.5!19.3!60 ! ! ! !+ +----+----+ -----+ + + +!Vertebral !55 !22 !60 ! ! ! !+ +----+----+-----+ + + +! Prox Subclavian!120 ! !60 ! ! ! !+ +----+----+-----+ + + + - There is antegrade vertebral flow noted on the left side. - Additional Measurements:ICAPSV/CCAPSV 1.3.ICAEDV/CCAEDV 1.77. Interface, External Ris In - 08/17/2020 7:59 AM CSTPV LAB - Carotid Duplex Study Demographics Patient Name ADRIANA MATHIAS Date of Study 08/16/2020 Age 69 Visit Number [id number] Gender Female Accession Number [id number] Date of 1950 Referring Johnny Gama Room Number SCPR Physician MD [employer] Sales Representative Daniel Duran Interpreting Rakel Arauoj, Physician ProcedureType of Study: Cerebral: Carotid, CAROTID DOPPLER, BILATERAL. Indications for Study:Pre-op CABG.Patient Status:STAT.Study Location:Portable. Technical Quality:Adequate visualization.Risk FactorsHistory of Disease+ +----+- +!Diagnosis !Date!Comments !+ +----+ +!Hi story/Risk Factors: ! !CAD, HTN, Recent Trauma, Morbid Obesity !+ +----+ +ImpressionsRight Impression1. There is <50% diameter reduction (approximately 20% by 2-D measurement)in the internal carotid artery with a peak velocity of 75.6/30.5 cm/sec andheterogeneous plaque.2. There is non-occluding plaque in the external carotid artery.3. There is non-occluding plaque in the common carotid artery.4. The vertebral artery flow is antegrade and normal.5. The subclavian artery is within normal limits where visualized.Left Impression1. There is <50% diameter reduction (approximately 15% by 2-D measurement)in the internal carotid artery with a peak velocity of 42.0/17.7 cm/sec andheterogeneous plaque.2. There is non-occluding plaque in the external carotid artery.3. There is non-occluding plaque in the common carotid artery.4. The vertebral artery flow is antegrade and normal.5. The subclavian artery is within normal limits where visualized. Conclusions Summary Carotid duplex scanning and color flow imaging were performedbilaterally. The arteries were adequately visualized. The bilateral internal carotid arteries had <50% hemodynamically insignificant stenosis (approximately 20% by 2-D measurement on the right, approximately 15% by 2-D measurement on the left) with heterogeneous plaque. The vertebral artery flow was antegrade and normal bilaterally. The subclavian arteries were patent with normal flow bilaterally where visualized. Signature Velocities are measured in cm/s ; Diameters are measured in cmCarotid Right Measurements+ +----+----+-----+ + +- +!Location !PSV !EDV !Angle!%Stenosis 2D!%Stenosis Doppler!Tortuosity !+ --+----+----+-----+ + + +!Prox CCA !72.7!26.4!60 ! ! ! !+ +----+----+-----+ + + +!Dist CCA !90.3!32.8!60 ! ! ! !+ ---+----+----+-----+ + + +!Prox ICA !75.6!30.5!60 !20% !<50% ! !+ +----+----+-----+ + ---+ +!Dist ICA !48.4!21.1!0 ! ! ! !+-------- -------+----+----+-----+ + + +!Prox ECA !85.6!18.8!60 ! ! ! !+ +----+----+-----+ + ----+ +!Vertebral !42.8!18.9!60 ! ! ! !+------- --------+----+----+-----+ + + +!Prox Subclavian!151 ! !60 ! ! ! !+ +----+----+-----+ + + + - There is antegrade vertebral flow noted on the right side. - Additional Measur ements:ICAPSV/CCAPSV 0.84.ICAEDV/CCAEDV 1.16.Carotid Left Measurements+ +----+----+---- -+ + + +!Location !PSV !EDV !Angle!%Stenosis 2D!%StenosisDoppler!Tortuosity !+ +----+----+-----+ + + +!Pr ox CCA !82.7!23.5!60 ! ! ! !+ +----+----+--- --+ + + +!Dist CCA !77.4!26.4!60 ! ! ! !+ +----+----+-----+ + + +!Pr ox ICA !42 !17.7!60 !15% !<50% ! !+ +----+---- +-----+ + + +!Dist ICA !101 !41.6!60 ! ! ! !+ +----+----+-----+ + + + !Prox ECA !81.5!19.3!60 ! ! ! !+ +----+--- -+-----+ + + +!Vertebral !55 !22 !60 ! ! ! !+ +----+----+-----+ + + +!Prox Subclavian!120 ! !60 ! ! ! !+ +----+----+-----+ + + + - There is antegrade vertebral flow noted on the left side. - Additional Measurements:ICAPSV/CCAPSV 1.3.ICAEDV/CCAEDV 1.77.[facility] Vein Mapping Legs [id number] 07:58:11Ejection FractionSLE ECHO HEARTLAB MKCKESSON CPACSRight Impression1. There is no deep venous venous obstruction in the common femoral,profunda femoral, femoral, popliteal, posterior tibial or peronealveins.2. There is no superficial venous obstruction in the great saphenous vein.3. Varicose veins noted in the great saphenous and lesser saphenous veins ofthe right lower extremity.Left Impression1. There is no deep venous venous obstruction in the common femoral,profunda femoral, femoral, popliteal,posterior tibial or peroneal veins.2. There is no superficial venous obstruction in the great saphenous vein.3. Varicose veins noted in the great saphenous and lesser saphenous veins ofthe left lower extremity. Conclusions Summary Venous duplex imaging and compression of the bilateral lower extremit ies was performed. The veins were adequately visualized. [...] Mid Thigh ! !0.19 ! ! + ------+ + + + !GSV Low Calf ! + + Superficial - Lesser Saphenous Vein Right Left + + + + + + + + !Location ! !Diameter !Depth ! !Diameter !Depth ! + + + + + + + + !SSV High Calf ! !0.2 ! ! + -------+ + + + Interface, External Ris In- 08/17/2020 7:58 AM CSTPV LAB - Lower Extremities Vein Mapping Demographics Patient Name ADRIANA MATHIAS Date of Study 08/16/2020 Age 69 Visit Number [id number] Gender Female Accession Number [id number] Date of 1950 Referring Johnny Gama Room Number SCPR Physician MD [employer] Sales Representativeashleigh Duran Interpreting Rakel Gayle, Physician ProcedureType of Study: Veins: Lower Extremity Vein Mapping, VEIN MAPPING, LOWER EXTREMITY, BILATERAL. Indications for Study:Pre-op CABG.Patient Status:STAT.Study Location:Portable.Technical Quality:Adequate visualization.Risk FactorsHistory of Disease+ +----+ --+!Diagnosis !Date!Comments !+ +----+ +!History/Risk Factors: ! !CAD, HTN, Recent Trauma, Morbid Obesity !+ +----+ +Imp ressionsRight Impression1. There is no deep venous venous obstruction in the common femoral,profunda femoral, femoral, popliteal, posterior tibial or peroneal veins.2. There is no superficial venous obstruction in the great saphenous vein.3. Varicose veins noted in the great saphenous and lesser saphenous veins ofthe right lower extremity.Left Impression1. There is no deep venous venous obstruction in the common femoral,profunda femoral, femoral, popliteal, posterior tibial or peroneal veins.2. There is no superficial venous obstruction in the great saphenous vein.3. Varicose veins noted in the great saphenous and lesser saphenous veins ofthe left lower extremity. Conclusions Summary Venous duplex imaging and compression of the bilateral lower extremities was performed. The veins were adequately visualized.The bilateral venous systems were patent and compressible with no evidence of thrombus. Superficial venous measurements are documented below. Varicose veins noted in the great saphenous and lesser saphenous veins of the bilateral lower extremities. Signature Velocities are measured in cm/s ; Diameters are measured in cmLE Vein Mapping Superficial - Great Saphenous Vein Right Left +-------- + + + + + + + !Location ! !Diameter !Depth ! !Diameter !Depth ! + + + + + + + + !GSV High Thigh ! !0.32 ! ! !0.3 ! ! + + + + + +------- + + !GSV Mid Thigh ! !0.19 ! ! + + + + + !GSV Low Calf ! + + Superficial - Lesser Saphenous Vein Right Left + + + + + + + + !Location ! !Diameter !Depth !!Diameter !Depth ! + + + + + +------ + + !SSV High Calf ! !0.2 ! ! + + + + +[facility] CenterHemoglobin [id number] 22:12:00 Test Item Value Reference Range Interpretation Comments Hemoglobin A1C (test code = 4548-4) 5.8 % 4.3-6.1 Lab Interpretation (test code = Normal 82189-0) [facility] CenterHEMOGLOBIN [id number] 22:12:00 Test Item Value Reference Range Interpretation Comments HEMOGLOBIN A1C (BEAKER) (test code = 5.8 % 4.3-6.1 368) BEATRIZ, [id number] 22:09:00 Test Item Value Reference Range Interpretation Comments ABO Grouping (test code = 2588) A Rh Factor (test code = 2589) POS [facility] CenterComprehensive metabolic [id number] 22:02:00 Test Item Value Reference Range Interpretation Comments Protein, Total (test 7.0 6.0- 8.3 gm/dL Speci men slightly code = 2885-2) hemolyzed Albumin (test code = 3.8 g/dL 3.5-5 Specime n slightly 37738-0) hemolyzed Alkaline Phosphatase 99 U/L 40-150 (test code = 6768-6) Total Bilirubin (test 0.4 mg/dL 0.2-1.2 Specim en slightly code = 1974-2) hemolyzed Sodium (test code = 137 meq/L 084-089 3799-2) Potassium (test code = 4.4 meq/L 3.5-5.1 Speci men slightly 2823-3) hemolyzed Chloride (test code = 101 meq/L 98-107 2074-0) CO2 (test code = 25 meq/L 22-29 2027-9) BUN (test code = 22 mg/dL 7-21 H 3094-0) Creatinine (test code 0.97 mg/dL 0.57-1.25 Specim en slightly = 2160-0) hemolyzed Glucose (test code = 134 mg/dL 70-105 H 2345-7) Calcium (test code = 9.8 mg/dL 8.4-10.2 47480-2) AST (test code = 40 U/L 5-34 H Specimen sl ightly 1920-8) hemolyzed ALT (test code = 33 U/L 6-55 Specimen sl ightly 1742-6) hemolyzed EGFR (test code = 69 mL/min/1.73 [place] [address]-7) NOT ACCURATE CREATININE CLEARANCE IN PREDICTING GLOMERULAR FILTRATION RATE . ESTIMATED GFR I S NOT APPLICABLE FOR DIALYSIS PATIENTS. YAAKOV (test code = YAAKOV) Hydrodynamicist ID Vivian Becker Lab Interpretation Abnormal (test code = 47900-0) [facility] CenterLipid [id number] 22:02:00 Test Item Value Reference Range Interpretation Comments Triglycerides (test 91 mg/dL Specimen code = 2571-8) slightly hemolyzed Cholesterol (test 107 mg/dL Specimen code = 2093-3) slightly hemolyzed HDL (test code = 31 mg/dL 2084-9) LDL Calculated (test 58 mg/dL code = 94513-2) YAAKOV (test code = Triglyceride YAAKOV) Reference Range: Low Risk <150 Borderline 150-199 High Risk 200-499 Very High Risk >=500 Cholesterol Reference Range: Low Risk <200 Borderline 200-239 High Risk >240 HDL Cholesterol Reference Range: Low Risk >=60 High Risk <40 LDL Cholesterol Reference Range: Optimal <100 Near Optimal 100-129 Borderline 130-159 High 160-189 Very High >=190 Hydrodynamicist ID Vivian Becker [facility] CenterMAGNESIUM2020-11-09 22:02:00 Test Item Value Reference Range Interpretation Comments MAGNESIUM (BEAKER) 1.7 mg/dL 1.6-2.6 Specimen slightly (test code = 627) hemolyzed Hydrodynamicist BRANDON DE SANTIAGO FCOMPREHENSIVE METABOLIC [id number] 22:02:00 Test Item Value Reference Range Interpretation Comments TOTAL PROTEIN 7.0 gm/dL 6.0-8.3 Specimen sligh tly (BEAKER) (test code = hemoly zed 770) ALBUMIN (BEAKER) 3.8 g/dL 3.5-5.0 Specimen sl ightly (test code = 1145) hemolyzed ALKALINE PHOSPHATASE 99 U/L 40-150 (BEAKER) (test code = 346) BILIRUBIN TOTAL 0.4 mg/dL 0.2-1.2 Specimen sli ghtly (BEAKER) (test code = hemoly zed 377) SODIUM (BEAKER) (test 137 meq/L 136-145 code = 381) POTASSIUM (BEAKER) 4.4 meq/L 3.5-5.1 Specimen slightly (test code = 379) hemolyzed CHLORIDE (BEAKER) 101 meq/L 98-107 (test code = 382) CO2 (BEAKER) (test 25 meq/L 22-29 code = 355) BLOOD UREA NITROGEN 22 mg/dL 7-21 H (BEAKER) (test code = 354) CREATININE (BEAKER) 0.97 mg/dL 0.57-1.25 Specimen slightly (test code = 358) hemolyzed GLUCOSE RANDOM 134 mg/dL 70-105 H (BEAKER) (test code = 652) CALCIUM (BEAKER) 9.8 mg/dL 8.4-10.2 (test code = 697) AST (SGOT) (BEAKER) 40 U/L 5-34 H Specimen slightly (test code = 353) hemolyzed ALT (SGPT) (BEAKER) 33 U/L 6-55 Specimen slightly (test code = 347) hemolyzed EGFR (BEAKER) (test 69 mL/min/1.73 ESTIMA KIMBERLY GFR IS code = 1092) sq m NOT ACCURATE CREATININE CLEARANCE IN PREDICTING GLOMERULAR FILTRATION RATE . ESTIMATED GFR I S NOT APPLICABLE FOR DIALYSIS PATIEN TS. Hydrodynamicist ID - PERRIS FLIPID [id number] 22:02:00 Test Item Value Reference Range Interpretation Comments TRIGLYCERIDES (BEAKER) 91 mg/dL Speci men slightly (test code = 540) hemolyzed CHOLESTEROL (BEAKER) 107 mg/dL Specime n slightly (test code = 631) hemolyzed HDL CHOLESTEROL (BEAKER) 31 mg/dL (test code = 976) LDL CHOLESTEROL 58 mg/dL CALCULATED (BEAKER) (test code = 633) Triglyceride Reference Range: Low Risk <150 Borderline 150-199 High Risk 200-499 Very High Risk >=500Cholesterol Reference Range: Low Risk <200 Borderline 200-239 High Risk >240HDL Cholesterol Reference Range: Low Risk >=60 High Risk <40LDL Cholesterol Reference Range: Optimal <100 Near Optimal 100-129 Borderline 130-159 High 160-189 Very High >=190 Hydrodynamicist ID - CAROLINA FType and screen, [id number] 21:59:00 Test Item Value Reference Range Interpretation Comments ABO/RH AUTOMATED (BEAKER) (test A POSITIVE echo code = 2260) Ab Scrn (test code = 890-4) NEGATIVE echo [facility] CenteraPTT2020-11-09 21:49:00 Test Item Value Reference Range Interpretation Comments PTT (test code = 15789-1) 31.5 22.5- 36.0 seconds Lab Interpretation (test code = Normal 76388-1) [facility] CenterAPTT2020-11-09 21:49:00 Test Item Value Reference Range Interpretation Comments PARTIAL THROMBOPLASTIN TIME 31.5 seconds 22.5-36.0 (BEAKER) (test code = 760) Prothrombin time/[id number] 21:48:00 Test Item Value Reference Range Interpretation Comments Protime (test code = 13.9 11.9- 14.2 5902-2) seconds INR (test code = 1.10 <=5.90 6301-6) YAAKOV (test code = YAAKOV) Effective 03/05/2019: PT Reference Range ChangeNew: 11.9-14.2 Previous: 11.7-14.7 RECOMMENDED COUMADIN/WARFARIN INR THERAPY RANGESSTANDARD DOSE: 2.0-3.0 Includes: PROPHYLAXIS for venous thrombosis, systemic embolization; TREATMENT for venous thrombosis and/or pulmonary embolus.HIGH RISK: Target INR is 2.5-3.5 for patients wiht mechanical heart valves. Lab Interpretation Normal (test code = 50105-3) [facility] CenterPROTHROMBIN TIME/[id number] 21:48:00 Test Item Value Reference Range Interpretation Comments PROTIME (BEAKER) (test code = 13.9 seconds 11.9-14.2 759) INR (BEAKER) (test code = 370) 1.10 <=5.90 Effective 03/05/2019: PT Reference Range ChangeNew: 11.9-14.2 Previous: 11.7- 14.7RECOMMENDED COUMADIN/WARFARIN INR THERAPY RANGESSTANDARD DOSE: 2.0-3.0 Includes: PROPHYLAXIS for venous thrombosis, systemic embolization; TREATMENT for venous thrombosis and/or pulmonary embolus.HIGH RISK: Target INR is2.5-3.5 for patients wiht mechanical heart valves.CBC W/PLT COUNT & AUTO [id number] 21:43:00 Test Item Value Reference Range Interpretation Comments WHITE BLOOD CELL COUNT (BEAKER) 7.6 K/ L 3.5-10.5 (test code = 775) RED BLOOD CELL COUNT (BEAKER) 4.15 M/ L 3.93-5.22 (test code = 761) HEMOGLOBIN (BEAKER) (test code = 12.0 GM/DL 11.2-15.7 410) HEMATOCRIT (BEAKER) (test code = 37.4 % 34.1-44.9 411) MEAN CORPUSCULAR VOLUME (BEAKER) 90.1 fL 79.4-94.8 (test code = 753) MEAN CORPUSCULAR HEMOGLOBIN 28.9 pg 25.6-32.2 (BEAKER) (test code = 751) MEAN CORPUSCULAR HEMOGLOBIN CONC 32.1 GM/DL 32.2-35.5 L (BEAKER) (test code = 752) RED CELL DISTRIBUTION WIDTH 13.0 % 11.7-14.4 (BEAKER) (test code = 412) PLATELET COUNT (BEAKER) (test 186 K/CU MM 150-450 code = 756) MEAN PLATELET VOLUME (BEAKER) 11.4 fL 9.4-12.3 (test code = 754) NUCLEATED RED BLOOD CELLS 0 /100 WBC 0-0 (BEAKER) (test code = 413) NEUTROPHILS RELATIVE PERCENT 57 % (BEAKER) (test code = 429) LYMPHOCYTES RELATIVE PERCENT 33 % (BEAKER) (test code = 430) MONOCYTES RELATIVE PERCENT 7 % (BEAKER) (test code = 431) EOSINOPHILS RELATIVE PERCENT 2 % (BEAKER) (test code = 432) BASOPHILS RELATIVE PERCENT 0 % (BEAKER) (test code = 437) NEUTROPHILS ABSOLUTE COUNT 4.32 K/ L 1.56-6.13 (BEAKER) (test code = 670) LYMPHOCYTES ABSOLUTE COUNT 2.50 K/ L 1.18-3.74 (BEAKER) (test code = 414) MONOCYTES ABSOLUTE COUNT (BEAKER) 0.55 K/ L 0.24-0.36 H (test code = 415) EOSINOPHILS ABSOLUTE COUNT 0.17 K/ L 0.04-0.36 (BEAKER) (test code = 416) BASOPHILS ABSOLUTE COUNT (BEAKER) 0.02 K/ L 0.01-0.08 (test code = 417) IMMATURE GRANULOCYTES-RELATIVE 1 % 0-1 PERCENT (BEAKER) (test code = 2801) 2D Echo W/Doppler(CW/PW/Color)2020-08-16 09:53:20Ejection FractionSLEH ECHO HEARTLAB MKCKESSON CPACSInterface, External Ris In - 08/16/2020 9:53 AM C STTransthoracic Echocardiography Report (TTE) Demographics Patient Name ADRIANA MATHIAS Date of Study 08/15/2020 Gender Female Visit Number [id number] Race Black Room Number 1422 Number Date of 1950 Referring Physician Jennifer Bishop Age 69 year(s) 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 Mild to m oderate concentric LV hypertrophy. All of the LV [...] relaxation and low-normal LA pressure). Left Atrium LA size is normal . Right Ventricle There is mild-moderate systolic dysfunction of the right ventricle. The right ventricular cavity size is mildly enlarged . Right Atrium RA size is probably normal based on available views. Atrial Septum Normal interatrial septum by available views. Aortic Valve Normal AoV structure and function. Mild leaflet thickening Mitral Valve Normal MV structure. No significant mitral regurgitation. Mild MV leaflet thickening. Tricuspid Valve No evidence of tricuspid regurgitation. Normal TV structure and function. Estimated peak systolic PA pressure is cannot be determined due to inadequate TR velocity signal . Pulmonic Valve Normal PV structure and function by limited views and Doppler. Aorta Aortic root size (SInus of Valsalva diameter) is normal . Pericardium No significant pericardial effusion is [...] Gipson's:41.57 ml LVESV Gipson's:15.51 ml LVEDVI: 21 ml/m^2LVEF Gipson's: 62.7 % LVESVI: 8 ml/m^2 LVOT [...] 1.99 cm LVOT VTI: 17.46 cm LVOT Area:3.11 cm^2 LVOT SV:54.28 ml LVOT CO: 3.64 l/min LVOT CI: 1.82 l/min/m^2[facility]OV[facility] ([facility])2020-08-14 20:18:00 Test Item Value Reference Range Interpretation Comments SARS-COV2/RT-PCR (test Negative Not Detected, Negative, code = 8577614) See external report for linked test SARS-COV-2 PERFORMING LAB [facility] (test code = 7283946) Negative result for this test determines that SARS-CoV-2 RNA was not present in the specimen above the Limit of Detection (LOD). However, Negative results do not preclude SARS-CoV-2 infection and should not be used as the sole basis for treatment or patient management decisions. Negative results mustbe combined with clinical observations, patient history, and epidemiological information. A false negative result may occur if a specimen is improperly collected, transported or handled. A false negative result should be considered if patient's recent exposures or clinical presentation indicate that COVID-19 (SARS-CoV-2) is likely and diagnostic tests for other causes of illness are negative. Re-testing should be considered in cases of suspected false negatives.The limit of detection for this assay is 100 copies/mL.This SARS CoV-2 test is a real-time RT-PCR test intended for the qualitative detection of nucleic acid from SARS-CoV-2 in a nasopharyngeal swab specimen collected from individuals susp ected of COVID-19 by their healthcare provider.This test has not been Food and Drug [...] is revoked under Section 564(g) of the Act.Testing was performed using the [employer] SARS-CoV-2 assay.Fact Sheet for Healthcare Providers:https://www.[employer].bourne/luiz/ AT_UZBK-UbJ-8_YNI_Wene_Ptzik_87-534657.pdfFact Sheet for Healthcare Patients:https://www.[employer].[place] madiha/luiz/LR_ZQET-OnB-0_Nmzlkrg_Cbmm_Ficqy_PW_14-827069N0.pdfPerforming Laboratory:[facility] [place] [address] Hepatic function [id number] 06:00:00 Test Item Value Reference Range Interpretation Comments Protein, Total (test code 7.0 6.0- 8.3 gm/dL = 2885-2) Albumin (test code = 3.9 g/dL 3.5-5 81879-4) Total Bilirubin (test code 0.4 mg/dL 0.2-1.2 = 1975-2) Bilirubin, Direct (test 0.2 mg/dL 0.1-0.5 code = 1968-7) Alkaline Phosphatase (test 96 U/L 40-150 code = 6768-6) AST (test code = 1920-8) 21 U/L 5-34 ALT (test code = 1742-6) 24 U/L 6-55 YAAKOV (test code = YAAKOV) Hydrodynamicist ID - EDASI Lab Interpretation (test Normal code = 33679-7) [facility] CenterBASIC METABOLIC [id number] 06:00:00 Test Item Value Reference Range Interpretation Comments SODIUM (BEAKER) 141 meq/L 136-145 (test code = 381) POTASSIUM (BEAKER) 3.9 meq/L 3.5-5.1 (test code = 379) CHLORIDE (BEAKER) 106 meq/L 98-107 (test code = 382) CO2 (BEAKER) (test 25 meq/L 22-29 code = 355) BLOOD UREA NITROGEN 14 mg/dL 7-21 (BEAKER) (test code = 354) CREATININE (BEAKER) 0.73 mg/dL 0.57-1.25 (test code = 358) GLUCOSE RANDOM 99 mg/dL 70-105 (BEAKER) (test code = 652) CALCIUM (BEAKER) 9.9 mg/dL 8.4-10.2 (test code = 697) EGFR (BEAKER) (test 96 mL/min/1.73 ESTIMA KIMBERLY GFR IS code = 1092) sq m NOT ACCURATE CREATININE CLEARANCE IN PREDICTING GLOMERULAR FILTRATION RATE . ESTIMATED GFR I S NOT APPLICABLE FOR DIALYSIS PATIEN TS. Hydrodynamicist ID - [id number] 06:00:00 Test Item Value Reference Range Interpretation Comments MAGNESIUM (BEAKER) (test code = 1.7 mg/dL 1.6-2.6 627) Hydrodynamicist ID - EDASIHEPATIC FUNCTION [id number] 06:00:00 Test Item Value Reference Range Interpretation Comments TOTAL PROTEIN (BEAKER) (test code = 7.0 gm/dL 6.0-8.3 770) ALBUMIN (BEAKER) (test code = 1145) 3.9 g/dL 3.5-5.0 BILIRUBIN TOTAL (BEAKER) (test code 0.4 mg/dL 0.2-1.2 = 377) BILIRUBIN DIRECT (BEAKER) (test 0.2 mg/dL 0.1-0.5 code = 706) ALKALINE PHOSPHATASE (BEAKER) (test 96 U/L 40-150 code = 346) AST (SGOT) (BEAKER) (test code = 21 U/L 5-34 353) ALT (SGPT) (BEAKER) (test code = 24 U/L 6-55 347) Hydrodynamicist ID - EDASIPROTHROMBIN TIME/[id number] 05:25:00 Test Item Value Reference Range Interpretation Comments PROTIME (BEAKER) (test code = 14.3 seconds 11.9-14.2 H 759) INR (BEAKER) (test code = 370) 1.15 <=5.90 Effective 03/05/2019: PT Reference Range ChangeNew: 11.9-14.2 Previous: 11.7- 14.7RECOMMENDED COUMADIN/WARFARIN INR THERAPY RANGESSTANDARD DOSE: 2.0-3.0 Includes: PROPHYLAXIS for venous thrombosis, systemic embolization; TREATMENT for venous thrombosis and/or pulmonary embolus.HIGH RISK: Target INR is2.5-3.5 for patients wiht mechanical heart valves.CBC W/PLT COUNT & AUTO [id number] 05:13:00 Test Item Value Reference Range Interpretation Comments WHITE BLOOD CELL COUNT (BEAKER) 6.5 K/ L 3.5-10.5 (test code = 775) RED BLOOD CELL COUNT (BEAKER) 4.17 M/ L 3.93-5.22 (test code = 761) HEMOGLOBIN (BEAKER) (test code = 12.1 GM/DL 11.2-15.7 410) HEMATOCRIT (BEAKER) (test code = 37.5 % 34.1-44.9 411) MEAN CORPUSCULAR VOLUME (BEAKER) 89.9 fL 79.4-94.8 (test code = 753) MEAN CORPUSCULAR HEMOGLOBIN 29.0 pg 25.6-32.2 (BEAKER) (test code = 751) MEAN CORPUSCULAR HEMOGLOBIN CONC 32.3 GM/DL 32.2-35.5 (BEAKER) (test code = 752) RED CELL DISTRIBUTION WIDTH 13.1 % 11.7-14.4 (BEAKER) (test code = 412) PLATELET COUNT (BEAKER) (test 155 K/CU MM 150-450 code = 756) MEAN PLATELET VOLUME (BEAKER) 11.9 fL 9.4-12.3 (test code = 754) NUCLEATED RED BLOOD CELLS 0 /100 WBC 0-0 (BEAKER) (test code = 413) NEUTROPHILS RELATIVE PERCENT 58 % (BEAKER) (test code = 429) LYMPHOCYTES RELATIVE PERCENT 31 % (BEAKER) (test code = 430) MONOCYTES RELATIVE PERCENT 8 % (BEAKER) (test code = 431) EOSINOPHILS RELATIVE PERCENT 2 % (BEAKER) (test code = 432) BASOPHILS RELATIVE PERCENT 1 % (BEAKER) (test code = 437) NEUTROPHILS ABSOLUTE COUNT 3.74 K/ L 1.56-6.13 (BEAKER) (test code = 670) LYMPHOCYTES ABSOLUTE COUNT 2.03 K/ L 1.18-3.74 (BEAKER) (test code = 414) MONOCYTES ABSOLUTE COUNT (BEAKER) 0.51 K/ L 0.24-0.36 H (test code = 415) EOSINOPHILS ABSOLUTE COUNT 0.14 K/ L 0.04-0.36 (BEAKER) (test code = 416) BASOPHILS ABSOLUTE COUNT (BEAKER) 0.03 K/ L 0.01-0.08 (test code = 417) IMMATURE GRANULOCYTES-RELATIVE 1 % 0-1 PERCENT (BEAKER) (test code = 2801) CT, BRAIN, WITHOUT [id number] 04:33:00Unlisted Reason for Exam - Click Yes and Enter Reason Below->No [facility] CLEARLAKEName: AD[facility]ATHIAS : 1950 Sex: FFINAL REPORT EXAM: CT, BRAIN, WITHOUT CONTRAST CLINICAL INDICATION: Head trauma. TECHNIQUE: CT images from skull base to vertex without IV contrast. This exam was performed according to the departmental dose optimization program which includes automated exposure control,adjustment of the mA and/or kV according to the patient size, and/or use of an iterative reconstruction technique. COMPARISON: None. FINDINGS: Parenchyma: No evidence of acute infarction. No hemorrhage. No mass or mass effect. Patchy and confluent areas of hypoattenuation are present in the cerebral white matter that are nonspecific but compatible with moderate chronic microvascular ischemic changes. Extra-axial Collection: None Ventricular System: Normal Osseous Structures: No acute osseous abnormality. Included Orbits: Prior bilateral lens surgery Paranasal Sinuses: Predominantly clear Tympanomastoid Cavities: Normal Other: None. IMPRESSION: 1. No acute intracranial abnormality on CT head without contrast. 2. Moderate chronic microvascular ischemic changes. If there is persistent clinical concern for intracranial pathology, MR examination is recommended for further characterization. Signed: Bhupendra Avila MDReport Verified Date/Time: 08/14/2020 04:33:35 [facility] brain without IV [id number] 04:33:00 Interface, External Ris In - 08/14/2020 5:59 AM CSTFINAL REPORT EXAM: CT, BRAIN, WITHOUT CONTRAST CLINICAL INDICATION: Head trauma. TECHNIQUE: CT images from skull base to vertex without IV contrast. This exam was performed according to the departmental dose optimization program which includes automated exposure control, adjustment of the mA and/or kV according to the patientsize, and/or use of an iterative reconstruction technique. COMPARISON: None. FINDINGS: Parenchyma: No evidence of acute infarction. No hemorrhage. No mass or mass effect. Patchy and confluent areas of h ypoattenuation are present in the cerebral white matter that are nonspecific but compatible with moderate chronic microvascular ischemic changes. Extra-axial Collection: None Ventricular System: Normal Osseous Structures: No acute osseous abnormality. Included Orbits: Prior bilateral lens surgeryParanasal Sinuses: Predominantly clear Tympanomastoid Cavities: Normal Other: None. IMPRESSION: 1. No acute intracranial abnormality on CT head without contrast. 2. Moderate chronic microvascular ischemic changes. If there is persistent clinical concern for intracranial pathology, MR examination isrecommended for further characterization. Signed: Bhupendra Avila MDReport Verified Date/Time: 08/14/2020 04:33:35 [facility]-[id number] 00:00:00Ordered by an unspecified provider.[facility] CenterThyroid Stimulating Hormone 2019-05-01 22:54:49 Test Item Value Reference Range Interpretation Comments TSH (test code = TSH) 1.940 mIU/mL 0.270-4.200 Comprehensive Metabolic [id number] 22:34:40 Test Item Value Reference Range Interpretation [...] = A/G 1.4 ratio N Ratio) Lipid [id number] 22:34:40 Test Item Value Reference Range Interpretation Comments Cholesterol Total 212 mg/dL 0-200 H RISK OF HE ART (test code = DISEASEPublishe d by Cholesterol Total) [employer] Farhana lyte Optimal Borderl ine [...] LDL/HDL Ratio=L DL Calc/HDL Chol Comprehensive Metabolic [id number] 22:34:40 Test Item Value Reference Range Interpretation [...] [employer] Foundation, http://nkdep.ni h.gov Comprehensive Metabolic [id number] 22:34:40 Test Item Value Reference Range Interpretation [...] ag e have not been validated by [facility] MDRD study and should be interpreted wit [...] by the National [employer], http://nkdep.ni h.gov [id number] 21:47:04 Test Item Value Reference Range Interpretation [...] code = Normal Normal Plt Estimation) Automated [id number] 21:28:33 Test Item Value Reference Range Interpretation Comments Neutro Auto (test code = Neutro 59.6 % 36.0-70.0 Auto) Lymph Auto (test code = Lymph Auto) 29.8 % 12.0-44.0 Jack Auto (test code = Jack Auto) 8.2 % 0.0-11.0 Eos, Auto (test code = Eos, Auto) 1.8 % 0.0-7.0 Basophil Auto (test code = Basophil 0.4 % 0.0-2.0 Auto) Neutro Absolute (test code = Neutro 3.1 x10 1.6-7.4 Absolute) Lymph Absolute (test code = Lymph 1.53 x10 .50-4.60 Absolute) Jack Absolute (test code = Jack .42 x10 .00-1.20 Absolute) Eos Absolute (test code = Eos 0.09 x10 0.00-0.74 Absolute) Baso Absolute (test code = Baso 0.02 x10 0.00-0.21 Absolute) IG [id number] 21:28:33 Test Item Value Reference Range Interpretation Comments IG (test code = IG) 0.2 % 0.0-5.0 IG Abs (test code = IG Abs) 0 x10 N Complete Blood Count with [id number] 21:28:32 Test Item Value Reference Range Interpretation [...] 11 % N Complete Blood Count with [id number] 21:28:32 Test Item Value Reference Range Interpretation [...] IPF) 11 % N pap, LB + [id number] 00:00:00 Test Item Value Reference Range Interpretation Comments HPV type-detect 3.0 by next gen not detected sequencing (reflex to HPV-16 risk assessment status) (test code = HPV type-detect 3.0 by next gen sequencing (reflex to HPV-16 risk assessment status)) General categories normal [interpretation] of Cervical or vaginal smear or scraping by Cyto stain (test code = 00126-7) [facility] in [id number] 00:00:00 Test Item Value Reference Range Interpretation [...] code = pseudomonas aeruginosa by real-time PCR) [facility] (dipstick) panel - [id number] 10:21:00 Test Item Value Reference Range Interpretation Comments Leukocytes (test code = Leukocytes) Trace Nitrite (test code = Nitrite) negative Urobilinogen (test code = 1 Urobilinogen) Protein (test code = Protein) 30 pH (test code = pH) 5.5 Blood (test code = Blood) Negative Specific Mcloud (test code = 1.030 Specific Mcloud) Ketone (test code = Ketone) Negative Bilirubin (test code = Bilirubin) Negative Glucose (test code = Glucose) Negative Appearance (test code = Appearance) Clear Color (test code = Color) Yellow [facility] macro (dipstick) panel - [id number] 10:21:00 Test Item Value Reference Range Interpretation Comments Leukocytes (test code = Leukocytes) Trace Nitrite (test code = Nitrite) negative Urobilinogen (test code = 1 Urobilinogen) Protein (test code = Protein) 30 pH (test code = pH) 5.5 Blood (test code = Blood) Negative Specific Mcloud (test code = 1.030 Specific Mcloud) Ketone (test code = Ketone) Negative Bilirubin (test code = Bilirubin) Negative Glucose (test code = Glucose) Negative Appearance (test code = Appearance) Clear Color (test code = Color) Yellow [facility] [id number] 09:00:00 Test Item Value Reference Range Interpretation Comments Surgical pathology see separate pathology study (test code = report. 94319-0) [facility] [id number] 12:33:00 Test Item Value Reference Range Interpretation Comments POC-GLUCOSE METER 131 mg/dL 70-110 H TESTED AT [address] (test code POINT [facility] [place] = 1538) [address] URINE [id number] 07:56:00 Test Item Value Reference Range Interpretation Comments CULTURE ([facility]) (test ESCHERICHIA COLI A 2 0-29,000 col/mL [...] = 47) <10,000 col/mL skin floraHEPATIC FUNCTION [id number] 06:05:00 Test Item Value Reference Range Interpretation Comments TOTAL PROTEIN (BEAKER) (test code = 7.1 gm/dL 6.0-8.5 770) ALBUMIN (BEAKER) (test code = 1145) 3.9 g/dL 3.5-5.0 BILIRUBIN TOTAL (BEAKER) (test code 0.4 mg/dL 0.1-1.2 = 377) BILIRUBIN DIRECT (BEAKER) (test 0.2 mg/dL 0.0-0.4 code = 706) ALKALINE PHOSPHATASE (BEAKER) (test 98 U/L 30-115 code = 346) AST (SGOT) (BEAKER) (test code = 19 U/L 5-40 353) ALT (SGPT) (BEAKER) (test code = 36 U/L 5-50 347) [id number] 05:47:00 Test Item Value Reference Range Interpretation Comments PROTIME (BEAKER) (test code = 759) 11.8 sec 9.3-12.0 [...] for patients with mechanical heart valves.BASIC METABOLIC [id number] 05:46:00 Test Item Value Reference Range Interpretation [...] S NOT APPLICABLE FOR DIALYSIS PATIEN TS. [id number] 05:43:00 Test Item Value Reference Range Interpretation Comments PHOSPHORUS (BEAKER) (test code = 2.6 mg/dL 2.5-4.5 604) [id number] 05:38:00 Test Item Value Reference Range Interpretation Comments MAGNESIUM (BEAKER) (test code = 2.0 mg/dL 1.5-3.0 627) CBC W/PLT COUNT & AUTO [id number] 05:30:00 Test Item Value Reference Range Interpretation [...] PERCENT (BEAKER) (test code = 2801) CALCIUM, [id number] 05:06:00 Test Item Value Reference Range Interpretation Comments CALCIUM IONIZED (BEAKER) (test 1.18 mmol/L 1.12-1.27 code = 698) PH, BLOOD (BEAKER) (test code = 7.45 1810) [id number] 05:21:00 Test Item Value Reference Range Interpretation Comments PHOSPHORUS (BEAKER) (test code = 1.8 mg/dL 2.5-4.5 L 604) CALCIUM, [id number] 05:20:00 Test Item Value Reference Range Interpretation Comments CALCIUM IONIZED (BEAKER) (test 0.92 mmol/L 1.12-1.27 L code = 698) PH, BLOOD (BEAKER) (test code = 7.42 1810) BASIC METABOLIC [id number] 05:18:00 Test Item Value Reference Range Interpretation [...] APPLICABLE FOR DIALYSIS PATIEN TS. HEPATIC FUNCTION [id number] 05:16:00 Test Item Value Reference Range Interpretation [...] (test code = 28 U/L 5-50 347) [id number] 05:09:00 Test Item Value Reference Range Interpretation [...] is 2.5-3.5 for patients with mechanical heart valves.[id number] 05:07:00 Test Item Value Reference Range Interpretation Comments MAGNESIUM (BEAKER) (test code = 1.2 mg/dL 1.5-3.0 L 627) TROPONIN [id number] 15:48:00 Test Item Value Reference Range Interpretation [...] acidosis, acute neurological disease, and persistent tachyarrhythmia.HEMOGLOBIN [id number] 10:08:00 Test Item Value Reference Range Interpretation Comments HEMOGLOBIN A1C (test code = 6.1 % 4.3-6.1 368) CT, CHEST WITH IV CONTRAST- PE TEST [id number] 09:48:00FINAL REPORT CT of the chest, pulmonary [...] identified in the thorax. Signed: Osmany Finch MDReport Verified Date/Time: 12/11/2018 09:48:10 Reading Location: [facility] C013X Ortho Consult Reading Room RAD, CHEST, 1 VIEW, NON DEPT 2018-12-11 09:10:00Reason for exam:->PULM EDEMAShould this be performed at the bedside?->YesFINAL REPORT Clinical History: PULM EDEMA Comparison Study: None Findings: The heart and lungs are within normal limits. The pleural spaces are clear. No significant bony or soft tissue abnormalities are seen. Impression: No active cardiopulmonary disease. Signed: Tico Rodriguezeport Verified Date/Time: 12/11/2018 09:10:32 Reading Location: [facility] Radiology Reading Room COMPREHENSIVE METABOLIC PANEL 2018-12-11 [...] NOT APPLICABLE FOR DIALYSIS PATIEN TS. TROPONIN [id number] 07:24:00 Test Item Value Reference Range Interpretation [...] acidosis, acute neurological disease, and persistent tachyarrhythmia.LIPID [id number] 07:23:00 Test Item Value Reference Range Interpretation [...] 100-129 Borderline 130-159 High 160-189 Very High [id number] 07:15:00 Test Item Value Reference Range Interpretation Comments MAGNESIUM (BEAKER) (test code = 2.0 mg/dL 1.5-3.0 627) CBC W/PLT COUNT & AUTO [id number] 07:00:00 Test Item Value Reference Range Interpretation [...] % 0-0 PERCENT (BEAKER) (test code = 6551)
[2020-09-22 12:10] LABS: Absolute Lymphocytes (CBC) 1.6 K/uL (0.7-4.9); Basophils % 0.7 % (0-1.3); Hematocrit 34.4 % (36.0-45.0); Lymphocytes % 31.8 % (15.3-44.8); MPV 8.9 fL (7.6-11.3); RBC Red Blood Cell Count 3.96 M/uL (3.86-4.86)
[2020-09-22 12:11] LABS: Protime INR 1.21
[2020-09-22 12:31] LABS: ALT/SGPT 25 U/L (12-78); AST/SGOT 24 U/L (15-37); Albumin 3.4 g/dL (3.4-5.0); Alkaline Phosphatase 155 U/L (45-117); BUN Blood Urea Nitrogen 12 mg/dL (7-18); Bicarbonate 30 mmol/L (21-32); Bilirubin Direct < 0.1 mg/dL (0-0.2); Bilirubin Total 0.2 mg/dL (0.2-1.0); Glucose Level 101 mg/dL (74-106); Magnesium 1.8 mg/dL (1.8-2.4); NT PRO-BNP 179 pg/mL (<125); Potassium 3.3 mmol/L (3.5-5.1); Protein, Total 7.9 g/dL (6.4-8.2); Sodium Level 143 mmol/L (136-145); Troponin (Emerg Dept Use Only) < 0.02 ng/mL (0.0-0.045)
--- NOTE | 2020-09-22 12:33 | ER ---
Nurse's Notes [facility] Name: Cole Cadena Age: 69 yrs Sex: Female : 1950 Arrival Date: 09/22/2020 Time: 11:03 Bed 19 Private MD: Diagnosis: Other chest pain;Obesity, unspecified;Other chest pain-roy/p cabg 08/18/20;Hypokalemia Presentation: 09/22 11:17 Chief complaint: Patient states: triple bypass approximately [address] [facility] aa5 . Pt reports intermittent chest pain since heart bypass but worse this morning. Pt also reports SOB. 11:17 Coronavirus screen: Client denies travel out of the [place] in the last 14 days. At this aa5 time, the client does not indicate any symptoms associated with coronavirus-19. Ebola Screen: Patient negative for fever greater than or equal to 101.5 degrees Fahrenheit, and additional compatible Ebola Virus Disease symptoms. Initial Sepsis Screen: Does the patient meet any 2 criteria? No. Patient's initial sepsis screen is negative. Does the patient have a suspected source of infection? No. Patient's initial sepsis screen is negative. Risk Assessment: Do you want to hurt yourself or someone else? Patient reports no desire to harm self or others. Onset of symptoms was September 2020. 11:17 Acuity: DYLAN 2 aa5 11:17 Method Of Arrival: Wheelchair aa5 Historical: - Allergies: 11:18 Tramadol HCl; aa5 - PMHx: 11:18 Anxiety; Asthma; Depression; GERD; Hypertension; aa5 - PSHx: 11:18 Heart stents; Triple heart bypass; aa5 - Immunization history:: Adult Immunizations unknown. - Social history:: Smoking status: Patient denies any tobacco usage or history of. - Family history:: not pertinent. Screenin:00 Abuse screen: Denies threats or abuse. Denies injuries from another. Nutritional zb screening: No deficits noted. Tuberculosis screening: No symptoms or risk factors identified. Fall Risk None identified. Assessment: 11:30 Also complains of no other symptoms. General: Appears in no apparent distress. zb uncomfortable, Behavior is cooperative, appropriate for age, anxious. Pain: Complains of pain in xyphoid area and mid-sternal area Pain radiates to back Pain currently is 8 out of 10 on a pain scale. Quality of pain is described as pressure, Pain began since bypass 1mth ago. Neuro: Level of Consciousness is awake, alert, obeys commands, Oriented to person, place, time, situation. Cardiovascular: Patient's skin is warm and dry. Respiratory: Airway is patent Respiratory effort is even, unlabored, Respiratory pattern is regular, symmetrical. GI: Abdomen is round non-distended. : No signs and/or symptoms were reported regarding the genitourinary system. EENT: No signs and/or symptoms were reported regarding the EENT system. Derm: Skin is intact, is healthy with good turgor, Skin is normal. Musculoskeletal: Circulation, motion, and sensation intact. Capillary refill < 3 seconds, Range of motion: intact in all extremities. 12:30 Reassessment: Patient appears in no apparent distress at this time. Patient and/or zb family updated on plan of care and expected duration. Pain level reassessed. Patient is alert, oriented x 3, equal unlabored respirations, skin warm/dry/pink. pt given warm blanket, watching tv at the moment. 13:30 Reassessment: Patient appears in no apparent distress at this time. Patient and/or zb family updated on plan of care and expected duration. Pain level reassessed. Patient is alert, oriented x 3, equal unlabored respirations, skin warm/dry/pink. pt in bed watching tv and resting. 14:30 Reassessment: Patient appears in no apparent distress at this time. Patient and/or zb family updated on plan of care and expected duration. Pain level reassessed. Patient is alert, oriented x 3, equal unlabored respirations, skin warm/dry/pink. pt resting in bed. no c/o at this time. pain decreased. 15:30 Reassessment: Patient appears in no apparent distress at this time. Patient and/or zb family updated on plan of care and expected duration. Pain level reassessed. Patient is alert, oriented x 3, equal unlabored respirations, skin warm/dry/pink. warm blanket given to patient. pt requested food. notified ECP, verbal order given for food. 16:20 Reassessment: Patient appears in no apparent distress at this time. Patient and/or zb family updated on plan of care and expected duration. Pain level reassessed. Patient is alert, oriented x 3, equal unlabored respirations, skin warm/dry/pink. family at the bedside. warm blanket given to patient. no c/o of pain at this time. 17:32 Reassessment: Patient appears in no apparent distress at this time. Patient and/or zb family updated on plan of care and expected duration. Pain level reassessed. Patient is alert, oriented x 3, equal unlabored respirations, skin warm/dry/pink. family at bedside. waiting transfer. Vital Signs: 11:17 BP 144 / 97; Pulse 79; Resp 16 S; Temp 97.7(O); Pulse Ox 99% on R/A; Weight 86.18 kg aa5 (R); Height 5 ft. 2 in. (157.48 cm) (R); Pain 10/10; 11:30 BP 148 / 95; Pulse 83; Resp 16; Pulse Ox 100% on R/A; zb 13:00 BP 150 / 87; Pulse 79; Resp 16; Pulse Ox 100% on R/A; zb 14:30 BP 139 / 89; Pulse 73; Resp 16; Pulse Ox 99% on R/A; zb 15:27 BP 143 / 96; Pulse 69; Resp 18; Pulse Ox 100% on R/A; zb 16:22 BP 151 / 82; Pulse 76; Resp 16; Pulse Ox 99% on R/A; zb 11:17 Body Mass Index 34.75 (86.18 kg, 157.48 cm) aa5 ED Course: 11:03 Patient arrived in ED. ag5 11:17 Arm band placed on Patient placed in an exam room, on a stretcher. aa5 11:26 EKG completed in triage. Results shown to MD. aa5 11:28 Marylin Coyne, RN is Primary Nurse. zb 11:32 Triage completed. aa5 11:33 Fabian Arriaza MD is Attending Physician. abbe 11:45 Missed attempt(s): 20 gauge in right antecubital area. Bleeding controlled, band aid jd3 applied, catheter tip intact. 11:53 Inserted saline lock: 22 gauge in left antecubital area, using aseptic technique. Blood jd3 collected. 12:00 Patient has correct armband on for positive identification. Bed in low position. Call zb light in reach. Side rails up X 1. bus driver/monitor on. Pulse ox on. NIBP on. 12:01 Patient maintains SpO2 saturation greater than 95% on room air. zb 12:30 Jeffrey Burden is Hospitalizing Provider. [facility] 12:44 XRAY Chest (1 view) In Process Unspecified. EDMS 17:43 No provider procedures requiring assistance completed. Patient admitted, IV remains in zb place. Administered Medications: 12:35 Drug: Aspirin 81 mg Route: PO; zb 12:40 Follow up: Response: No adverse reaction zb 12:35 Drug: fentaNYL (PF) 25 mcg Route: IVP; Site: left forearm; zb 13:00 Follow up: Response: No adverse reaction; Pain is increased zb 12:35 Drug: Zofran (Ondansetron) 4 mg Route: IVP; Site: left forearm; zb 13:00 Follow up: Response: No adverse reaction zb 13:30 Drug: Potassium Effervescent Tablet 50 mEq Route: PO; zb 14:00 Follow up: Response: No adverse reaction zb 13:41 Not Given (Duplicate Order): fentaNYL (PF) 25 mcg IVP once; RASS on ADMIN: Combtv4, zb Very Agttd3, Agttd2, Rstlss1, AlertClm0, Drwsy-1, Lt Sdtn-2, Mod Sdtn-3, Dp Sdtn-4, UnArsble-5 Outcome: 12:32 Decision to Hospitalize by Provider. [facility] 17:44 Admitted to Med/surg accompanied by tech, family with patient, via wheelchair, room zb 217, with chart, Report called to Floor RN 17:44 Condition: stable 17:44 Instructed on the need for admit. 17:46 Patient left the ED. zb Signatures: Dispatcher [employer] EDMS Fabian Arriaza MD MD cha Calderon, Audri, RN RN justice5 Dami Whtie RN RN Yanick Kaur5 Marylin Coyne RN RN zb Corrections: (The following items were deleted from the chart) 17:46 11:30 Pain: Complains of pain in xyphoid area and mid-sternal area Pain radiates to zb back Pain currently is 8 out of 10 on a pain scale. Quality of pain is described as pressure, zb 17:46 14:30 Reassessment: Patient appears in no apparent distress at this time. Patient zb and/or family updated on plan of care and expected duration. Pain level reassessed. Patient is alert, oriented x 3, equal unlabored respirations, skin warm/dry/pink. pt resting in bed. no c/o at this time zb
--- NOTE | 2020-09-22 12:33 | EDPHYS ---
Physician Documentation [facility] Name: Cole Cadena Age: 69 yrs Sex: Female : 1950 Arrival Date: 09/22/2020 Time: 11:03 Bed 19 Private MD: ED Physician Fabian Arriaza HPI: 09/22 12:19 This 69 yrs old Black Female presents to ER via Wheelchair with complaints of Chest abbe Pain. 12:19 The patient or guardian reports chest pain that is located primarily in the substernal abbe area, epigastric area. Onset: 6 day(s) ago. The pain does not radiate. Associated signs and symptoms: Pertinent positives: shortness of breath. The chest pain is described as a heaviness, a pressure. Duration: The patient or guardian reports a single episode, that is still ongoing, and unchanged. Modifying factors: The symptoms are alleviated by remaining still, the symptoms are aggravated by breathing, movement, palpation of area. Severity of pain: At its worst the pain was moderate in the emergency department the pain has improved mildly. The patient has experienced similar episodes in the past, several times. Historical: - Allergies: 11:18 Tramadol HCl; aa5 - PMHx: 11:18 Anxiety; Asthma; Depression; GERD; Hypertension; aa5 - PSHx: 11:18 Heart stents; Triple heart bypass; aa5 - Immunization history:: Adult Immunizations unknown. - Social history:: Smoking status: Patient denies any tobacco usage or history of. - Family history:: not pertinent. ROS: 12:19 Constitutional: Negative for fever, chills, and weight loss, Eyes: Negative for injury, abbe pain, redness, and discharge, ENT: Negative for injury, pain, and discharge, Neck: Negative for injury, pain, and swelling, Respiratory: Negative for shortness of breath, cough, wheezing, and pleuritic chest pain, Abdomen/GI: Negative for abdominal pain, nausea, vomiting, diarrhea, and constipation, Back: Negative for injury and pain, : Negative for injury, bleeding, discharge, and swelling, MS/Extremity: Negative for injury and deformity, Skin: Negative for injury, rash, and discoloration, Neuro: Negative for headache, weakness, numbness, tingling, and seizure, Psych: Negative for depression, anxiety, suicide ideation, homicidal ideation, and hallucinations, Allergy/Immunology: Negative for hives, rash, and allergies, Endocrine: Negative for neck swelling, polydipsia, polyuria, polyphagia, and marked weight changes, Hematologic/Lymphatic: Negative for swollen nodes, abnormal bleeding, and unusual bruising. 12:19 Cardiovascular: Positive for chest pain, of the chest. 12:19 Respiratory: Positive for shortness of breath, at rest. Exam: 12:19 Constitutional: This is a well developed, well nourished patient who is awake, alert, abbe and in no acute distress. Head/Face: Normocephalic, atraumatic. Eyes: Pupils equal round and reactive to light, extra-ocular motions intact. Lids and lashes normal. Conjunctiva and sclera are non-icteric and not injected. Cornea within normal limits. Periorbital areas with no swelling, redness, or edema. ENT: Nares patent. No nasal discharge, no septal abnormalities noted. Tympanic membranes are normal and external auditory canals are clear. Oropharynx with no redness, swelling, or masses, exudates, or evidence of obstruction, uvula midline. Mucous membranes moist. Neck: Trachea midline, no thyromegaly or masses palpated, and no cervical lymphadenopathy. Supple, full range of motion without nuchal rigidity, or vertebral point tenderness. No Meningismus. Cardiovascular: Regular rate and rhythm with a normal S1 and S2. No gallops, murmurs, or rubs. Normal PMI, no JVD. No pulse deficits. Respiratory: Lungs have equal breath sounds bilaterally, clear to auscultation and percussion. No rales, rhonchi or wheezes noted. No increased work of breathing, no retractions or nasal flaring. Abdomen/GI: Soft, non-tender, with normal bowel sounds. No distension or tympany. No guarding or rebound. No evidence of tenderness throughout. Back: No spinal tenderness. No costovertebral tenderness. Full range of motion. Female : Normal external genitalia. Skin: Warm, dry with normal turgor. Normal color with no rashes, no lesions, and no evidence of cellulitis. MS/ Extremity: Pulses equal, no cyanosis. Neurovascular intact. Full, normal range of motion. Neuro: Awake and alert, GCS 15, oriented to person, place, time, and situation. Cranial nerves II-XII grossly intact. Motor strength 5/5 in all extremities. Sensory grossly intact. Cerebellar exam normal. Normal gait. Psych: Awake, alert, with orientation to person, place and time. Behavior, mood, and affect are within normal limits. 12:19 Chest/axilla: Inspection: no acute changes, Palpation: tenderness, that is moderate, of the anterior aspect of right upper chest, anterior aspect of left upper chest, mid-sternal area, right breast and left breast, Axilla: are normal, Breasts: are normal, no acute changes. 12:28 ECG was reviewed by the Attending Physician. abbe Vital Signs: 11:17 BP 144 / 97; Pulse 79; Resp 16 S; Temp 97.7(O); Pulse Ox 99% on R/A; Weight 86.18 kg aa5 (R); Height 5 ft. 2 in. (157.48 cm) (R); Pain 10/10; 11:30 BP 148 / 95; Pulse 83; Resp 16; Pulse Ox 100% on R/A; zb 13:00 BP 150 / 87; Pulse 79; Resp 16; Pulse Ox 100% on R/A; zb 14:30 BP 139 / 89; Pulse 73; Resp 16; Pulse Ox 99% on R/A; zb 15:27 BP 143 / 96; Pulse 69; Resp 18; Pulse Ox 100% on R/A; zb 16:22 BP 151 / 82; Pulse 76; Resp 16; Pulse Ox 99% on R/A; zb 11:17 Body Mass Index 34.75 (86.18 kg, 157.48 cm) aa5 MDM: 11:33 Patient medically screened. abbe 12:24 Differential diagnosis: abnormal EKG, anxiety, coronary artery disease chest wall pain, abbe congestive heart failure cholecystitis, Cholelithiasis herpes zoster, hiatal hernia, mitral valve prolapse, pancreatitis, pericarditis, pleurisy, stable angina. HEART Score: History: Moderately Suspicious (1), ECG: Normal (0), Age: > or = 65 years (2), Risk Factors: > or = 3 Risk factors for atherosclerotic disease (2), [Hypercholesterolemia] [Hypertension] [+ Family HX] [Obesity] Troponin: < or = 1 x Normal Limit (0). The patient was given aspirin in the Emergency Department. The patient's deep vein thrombosis risk score was calculated as follows: the patient has recently been bedridden for more than three days or has received major surgery in the last four weeks (1 Pt) Total Score: 1 to 2 points. This patient was found to be at moderate risk for a deep vein thrombosis by using the Well's assessment criteria. The patient's pulmonary embolism risk score was calculated as follows: patient has experienced immobilization or surgery in the last four weeks (1.5 Pts) Total Score: 0-2 points. This patient was found to be at low risk for a pulmonary embolism by using the Well's assessment criteria. JACQUELIN Risk Score: 1 - patient's age is greater or equal to 65 years, 1 - Three or more CAD risk factors, 1- Known CAD, 1 - ASA use in past 7 days, TOTAL SCORE = 4. Data reviewed: vital signs, nurses notes, lab test result(s), EKG, radiologic studies, CT scan, plain films. 09/22 11:34 Order name: Basic Metabolic Panel; Complete Time: 12:52 [facility] 09/22 11:34 Order name: CBC with Diff; Complete Time: 12:52 [facility] 09/22 11:34 Order name: LFT's; Complete Time: 12:52 [facility] 09/22 11:34 Order name: Magnesium; Complete Time: 12:52 [facility] 09/22 11:34 Order name: NT PRO-BNP; Complete Time: 12:52 [facility] 09/22 11:34 Order name: PT-INR; Complete Time: 12:52 [facility] 09/22 11:33 Order name: EKG; Complete Time: 11:33 jd3 09/22 11:34 Order name: Troponin (emerg Dept Use Only); Complete Time: 12:52 [facility] 09/22 11:34 Order name: XRAY Chest (1 view); Complete Time: 15:34 [facility] 09/22 11:33 Order name: EKG - Nurse/Tech; Complete Time: 11:33 jd3 09/22 11:34 Order name: Cardiac monitoring; Complete Time: 11:35 [facility] 09/22 11:34 Order name: IV Saline Lock; Complete Time: 11:52 [facility] 09/22 11:34 Order name: Labs collected and sent; Complete Time: 11:35 [facility] 09/22 11:34 Order name: O2 Per Protocol; Complete Time: 11:35 [facility] 12/16 11:34 Order name: O2 Sat Monitoring; Complete Time: 11:35 abbe EC:28 Rate is 78 beats/min. Rhythm is regular. QRS Crawford is Normal. MS interval is normal. QRS abbe interval is normal at 78 msec. QT interval is prolonged at 492 msec. No Q waves. T waves are Normal. No ST changes noted. Clinical impression: NSR w/ Non-specific ST/T Changes and No evidence of ischemia. Interpreted by me. Reviewed by me. Administered Medications: 12:35 Drug: Aspirin 81 mg Route: PO; zb 12:40 Follow up: Response: No adverse reaction zb 12:35 Drug: fentaNYL (PF) 25 mcg Route: IVP; Site: left forearm; zb 13:00 Follow up: Response: No adverse reaction; Pain is increased zb 12:35 Drug: Zofran (Ondansetron) 4 mg Route: IVP; Site: left forearm; zb 13:00 Follow up: Response: No adverse reaction zb 13:30 Drug: Potassium Effervescent Tablet 50 mEq Route: PO; zb 14:00 Follow up: Response: No adverse reaction zb 13:41 Not Given (Duplicate Order): fentaNYL (PF) 25 mcg IVP once; RASS on ADMIN: Combtv4, zb Very Agttd3, Agttd2, Rstlss1, AlertClm0, Drwsy-1, Lt Sdtn-2, Mod Sdtn-3, Dp Sdtn-4, UnArsble-5 Disposition: 09/22/20 12:32 Hospitalization ordered by Jeffrey Burden for Observation. Preliminary diagnosis are Other chest pain, Obesity, unspecified, Other chest pain - roy/p cabg 08/18/20, Hypokalemia. - Bed requested for Telemetry/MedSurg (observation). - Status is Observation. zb - Condition is Fair. - Problem is new. - Symptoms have improved. Signatures: Dispatcher [employer] EDBethanie Pearce RN RN kl Anderson, Corey, MD MD cha Calderon, Audri RN RN justice5 Dami White RN RN jd3 Brown, Zipporah, RN RN zethan Corrections: (The following items were deleted from the chart) 12:54 12:32 Hospitalization Ordered by Jeffrey Burden for Observation. Preliminary diagnosis abbe is Other chest pain; Obesity, unspecified; Other chest pain - wall. Bed requested for Telemetry/MedSurg (observation). Status is Observation. Condition is Fair. Problem is new. Symptoms have improved. abbe 15:10 12:54 09/22/2020 12:32 Hospitalization Ordered by Jeffrey Burden for Observation. kl Preliminary diagnosis is Other chest pain; Obesity, unspecified; Other chest pain - wall; Hypokalemia. Bed requested for Telemetry/MedSurg (observation). Status is Observation. Condition is Fair. Problem is new. Symptoms have improved. abbe 15:35 15:10 09/22/2020 12:32 Hospitalization Ordered by Jeffrey Burden for Observation. abbe Preliminary diagnosis is Other chest pain; Obesity, unspecified; Other chest pain - wall; Hypokalemia. Bed requested for Telemetry/MedSurg (observation). Status is Observation. Condition is Fair. Problem is new. Symptoms have improved. kl 17:46 15:35 09/22/2020 12:32 Hospitalization Ordered by Jeffrey Burden for Observation. zb Preliminary diagnosis is Other chest pain; Obesity, unspecified; Other chest pain - roy/p cabg 08/18/20; Hypokalemia. Bed requested for Telemetry/MedSurg (observation). Status is Observation. Condition is Fair. Problem is new. Symptoms have improved. abbe
[2020-09-22] MEDS ORDERED: ASPIRIN 81 MG CHEWABLE TABLET ONE (12:44)
[2020-09-22] MEDS ORDERED: ONDANSETRON 4 MG/2 ML VIAL ONE (12:47)
[2020-09-22] MEDS ORDERED: FENTANYL CITR 100 MCG/2 ML ONE (12:47)
--- NOTE | 2020-09-22 13:11 | RAD REPORT ---
EXAM DESCRIPTION: John Single View09/22/2020 12:43 pm CLINICAL HISTORY: Chest pain COMPARISON: August 2020 FINDINGS: The lungs appear clear of acute infiltrate. The heart is mildly enlarged. Postsurgical changes involve the chest. IMPRESSION: No acute abnormalities displayed
[2020-09-22] MEDS ORDERED: POTASSIUM 25 MEQ EFFERV TAB ONE (13:34)
--- NOTE | 2020-09-22 13:58 | P.HP ---
Certification for Inpatient Patient admitted to: Observation With expected LOS: <2 Midnights Practitioner: I am a practitioner with admitting privileges, knowledge of patient current condition, hospital course, and medical plan of care. Services: Services provided to patient in accordance with Admission requirements found in Title 42 Section 412.3 of the Code of Federal Regulations Patient History Date of Service: 09/22/20 Reason for admission: Chest pain History of Present Illness: 69-year-old woman with a history of coronary artery disease status post stent and recent CABG presented emergency department with a complaint of anterior chest pain, worse with movement, relieved by IV morphine in the ED, nonradiating, no associated nausea or diaphoresis or shortness of breath. Patient had a CABG done about a month ago. She states she has been experienced pain under her breasts bilaterally which she related to her thoracotomy wound. She stated the pain became worse this morning, to the point she was not able to move and therefore presented to the emergency department. EKG done in the ED showed nonspecific ST-T changes. Initial troponin is negative. Chest x-ray is unremarkable. Given patient recent CABG, she is placed under observation for ACS rule out. Allergies tramadol Allergy (Verified 08/11/20 23:29) throwing up, delirium Home Medications: ALPRAZolam [Alprazolam] 2 mg PO TID 02/12/19 Aspirin [Aspirin EC 81 MG] 81 mg PO DAILY 02/12/19 Gabapentin [Neurontin*] 100 mg PO BIDP PRN 02/12/19 Hydrocodone 7.5/APAP 325 [[place] 7.5/325 mg*] 1 tab PO BIDP PRN 02/12/19 Albuterol Sulfate [Proair Hfa] 2 puff IH TID PRN #1 hfa.aer.ad 08/04/20 Amlodipine [Norvasc*] 5 mg PO DAILY #30 tab 08/04/20 Atorvastatin Calcium [Lipitor] 80 mg PO DAILY #30 tab 08/04/20 Budesonide/Formoterol Fumarate [Symbicort 160-4.5 Mcg Inhaler] 2 puff IH BID #1 hfa.aer.ad 08/04/20 carvediloL [Coreg*] 25 mg PO BID #60 tab 08/04/20 hydroCHLOROthiazide [Hydrochlorothiazide*] 12.5 mg PO DAILY #30 cap 08/04/20 Oxybutynin Chloride [Ditropan Xl*] 5 mg PO BID 08/11/20 - Past Medical/Surgical History Diabetic: No -: Depression with anxiety -: GERD -: Hypertension -: CAD with prior stent -: Hyperlipidemia -: Asthma -: gout -: arthiritis -: tubal ligation -: Cardiac stent -: left leg sx with plate and screws Psychosocial/ Personal History: Patient . She lives by herself. - Family History Father -: Lung disease Mother -: Heart disease - Social History Alcohol use: No CD- Drugs: No Caffeine use: No Review of Systems Other: Except as documented, all other systems reviewed and negative. Physical Examination - Physical Exam General: Alert, In no apparent distress HEENT: Mucous membr. moist/pink Neck: Supple, JVD not distended Respiratory: Clear to auscultation bilaterally, Normal air movement Cardiovascular: No edema, Regular rate/rhythm, Normal S1 S2 Capillary refill: <2 Seconds Gastrointestinal: Normal bowel sounds, Soft and benign, Non-distended, No tenderness Musculoskeletal: No swelling, Tenderness (On palpation of the anterior chest wall.) Integumentary: No rashes, No erythema Neurological: Normal speech, Normal strength at 5/5 x4 extr, Cranial nerves 3-12 intact - Studies Laboratory Data (last 24 hrs) 09/22/20 11:48: PT 14.2 H, INR 1.21 09/22/20 11:48: WBC 4.9, Hgb 11.1 L, Hct 34.4 L, Plt Count 253 09/22/20 11:48: Sodium 143, Potassium 3.3 L, BUN 12, Creatinine 0.69, Glucose 101, Magnesium 1.8, Total Bilirubin 0.2, AST 24, ALT 25, Alkaline Phosphatase 155 H Assessment and Plan - Problems (Diagnosis) (1) CAD (coronary artery disease) Current Visit: Yes Status: Acute (2) Hx of CABG Current Visit: Yes Status: Acute (3) Chest pain Current Visit: No Status: Acute Qualifiers: Chest pain type: unspecified Qualified Code(s): R07.9 - Chest pain, unspecified (4) Hypertension Current Visit: No Status: Chronic Qualifiers: Hypertension type: essential hypertension - Plan Place under observation. Trend troponin IV morphine p.r.n. for pain NTG p.r.n. Consult to cardiology. Continue aspirin, beta-rajiv. Continue home antihypertensives. - Advance Directives Does patient have a Living Will: No Does patient have a Durable POA for Healthcare: No
[2020-09-22] MEDS ORDERED: MORPHINE 4 MG/ML SYR IV PRN (18:13)
[2020-09-22] MEDS ORDERED: NITROGLYCERIN 0.4 MG/TAB SL PRN (18:13)
[2020-09-22 18:48] VITALS: BMI 35.1
--- NOTE | 2020-09-22 19:13 | EKG ---
Test Date: 2020-09-22 Test Time: 11:26:31 Director Of Anesthesia Services: SHAAN MEASUREMENT RESULTS: Intervals: Rate: 78 CT: 190 QRSD: 88 QT: 432 QTc: 492 [place]: P: 77 CT: 190 QRS: 7 T: 98 INTERPRETIVE STATEMENTS: Normal sinus rhythm T wave abnormality, consider anterolateral ischemia Prolonged QT Abnormal ECG Compared to ECG 08/12/2020 08:48:11 Possible ischemia now present T-wave abnormality still present Electronically Signed On 09-22-20 19:12:35 MEDIA MARKETING DIRECTOR by Jonathan Lyle
[2020-09-22 20:12] LABS: HDL Cholesterol 41 mg/dL (40-60); LDL Cholesterol, Calculated 34 (<130); Troponin I < 0.02 ng/mL (0.0-0.045)
[2020-09-23 06:08] LABS: Absolute Lymphocytes (CBC) 1.6 K/uL (0.7-4.9); Basophils % 1.1 % (0-1.3); Hematocrit 32.8 % (36.0-45.0); Lymphocytes % 30.8 % (15.3-44.8); MPV 9.4 fL (7.6-11.3); RBC Red Blood Cell Count 3.79 M/uL (3.86-4.86)
[2020-09-23 06:22] LABS: BUN Blood Urea Nitrogen 10 mg/dL (7-18); Bicarbonate 30 mmol/L (21-32); Glucose Level 94 mg/dL (74-106); Potassium 3.7 mmol/L (3.5-5.1); Sodium Level 141 mmol/L (136-145)
[2020-09-23] MEDS ORDERED: PNEUMOCOCCAL VACCINE 0.5 ML IMVAC ONE (08:00)
[2020-09-23 08:11] LABS: Magnesium 1.8 mg/dL (1.8-2.4)
[2020-09-23] MEDS ORDERED: ENOXAPARIN 40 MG/0.4 ML SQ SCH (09:00)
[2020-09-23] MEDS ORDERED: ASPIRIN EC 81 MG TAB PO SCH (09:00)
[2020-09-23 10:46] VITALS: BP 141/77; TEMP 97.4
[2020-09-23 12:45] VITALS: O2SAT 95
--- NOTE | 2020-09-23 13:06 | P.DS ---
Admission Date: 09/22/20 Discharge Date: 09/23/20 Disposition: ROUTINE DISCHARGE Discharge Condition: FAIR Reason for Admission: Chest pain - Problems (1) CAD (coronary artery disease) Current Visit: Yes Status: Acute (2) Hx of CABG Current Visit: Yes Status: Acute (3) Chest pain Current Visit: No Status: Acute Qualifiers: Chest pain type: unspecified Qualified Code(s): R07.9 - Chest pain, unspecified (4) Hypertension Current Visit: No Status: Chronic Qualifiers: Hypertension type: essential hypertension Brief History of Present Illness: 69-year-old woman with a history of coronary artery disease status post stent and recent CABG presented emergency department with a complaint of anterior chest pain, worse with movement, relieved by IV morphine in the ED, nonradiating, no associated nausea or diaphoresis or shortness of breath. Patient had a CABG done about a month ago. She states she has been experienced pain under her breasts bilaterally which she related to her thoracotomy wound. She stated the pain became worse this morning, to the point she was not able to move and therefore presented to the emergency department. EKG done in the ED showed nonspecific ST-T changes. Initial troponin is negative. Chest x-ray is unremarkable. Given patient had recent CABG, she was placed under observation for ACS rule out. Hospital Course: Troponin trended came back negative. Her chest pain was reproducible by palpa tion and likely musculoskeletal in origin secondary to her thoracotomy. Vitals were stable. Patient seen and evaluated by Dr. Urias. No further recommendation at this time. She is ok to discharge per Dr. Urias. She will follow with Dr. Urias as an outpatient renew 1-2 weeks. Patient has been informed of the follow up. Vital Signs/Physical Exam: Temp Pulse Resp BP Pulse Ox 97.4 F 85 18 141/77 H 94 09/23/20 08:00 09/23/20 08:00 09/23/20 08:00 09/23/20 08:00 09/23/20 08:00 General: Alert, In no apparent distress, Oriented x3 HEENT: Mucous membr. moist/pink Neck: JVD not distended Respiratory: Normal air movement Cardiovascular: No edema, Regular rate/rhythm, Normal S1 S2 Gastrointestinal: Soft and benign Musculoskeletal: No swelling Integumentary: No rashes Neurological: Other (Nonfocal) Laboratory Data at Discharge: WBC 5.2 K/uL (4.3-10.9) 09/23/20 05:39 Hgb 10.6 g/dL (12.0-15.0) L 09/23/20 05:39 Hct 32.8 % (36.0-45.0) L 09/23/20 05:39 Plt Count 245 K/uL (152-406) 09/23/20 05:39 PT 14.2 SECONDS (9.5-12.5) H 09/22/20 11:48 INR 1.21 09/22/20 11:48 Sodium 141 mmol/L (136-145) 09/23/20 05:39 Potassium 3.7 mmol/L (3.5-5.1) 09/23/20 05:39 BUN 10 mg/dL (7-18) 09/23/20 05:39 Creatinine 0.68 mg/dL (0.55-1.3) 09/23/20 05:39 Glucose 94 mg/dL (74-106) 09/23/20 05:39 Magnesium 1.8 mg/dL (1.8-2.4) 09/23/20 05:39 Total Bilirubin 0.2 mg/dL (0.2-1.0) 09/22/20 11:48 AST 24 U/L (15-37) 09/22/20 11:48 ALT 25 U/L (12-78) 09/22/20 11:48 Alkaline Phosphatase 155 U/L (45-117) H 09/22/20 11:48 Troponin I < 0.02 ng/mL (0.0-0.045) 09/23/20 00:01 Triglycerides 84 mg/dL (<150) 09/22/20 19:39 Cholesterol 92 mg/dL (<200) 09/22/20 19:39 HDL Cholesterol 41 mg/dL (40-60) 09/22/20 19:39 Cholesterol/HDL Ratio 2.24 09/22/20 19:39 Home Medications: Aspirin [Aspirin EC 81 MG] 81 mg PO DAILY 02/12/19 Oxybutynin Chloride [Ditropan Xl*] 5 mg PO BID 08/11/20 Albuterol Neb [Proventil 0.083% Neb Soln] 2.5 mg IH Q6H PRN 09/23/20 Albuterol Sulfate [Albuterol Sulfate Hfa] 1 puff IH Q6H PRN 09/23/20 Atorvastatin Calcium [Lipitor] 80 mg PO BEDTIME 09/23/20 Budesonide/Formoterol Fumarate [Symbicort 160-4.5 Mcg Inhaler] 2 puff IH BID 09/23/20 Citalopram [Celexa*] 20 tab PO BEDTIME 09/23/20 Colchicine 0.6 tab PO DAILY 09/23/20 Cyclosporine [Restasis] 0.05 % EACH EYE BID 09/23/20 Losartan Potassium [Cozaar*] 50 tab PO DAILY 09/23/20 Metoprolol Tartrate 25 tab PO BID 09/23/20 Thyroid,Pork [[place] Thyroid] 15 tab PO DAILY 09/23/20 hydroCHLOROthiazide [Hydrochlorothiazide*] 25 mg PO DAILY 09/23/20 Diet: AHA Activity: Ad trung Followup: Luis Alberto Rangel DO, DO [Primary Care Provider] - Eduardo Urias MD [ACTIVE - CAN ADMIT] - 1-2 Weeks
== END 2020-09-23 14:00 | disposition home or self-care (01) ==
LOC: ER 11:02 → ERHOLD 13:45 → 2ND 16:35
PROVIDERS: ADMIT Internal Medicine; ATTEND Internal Medicine
DX: R07.9 Chest pain, unspecified (principal); I25.10 Atherosclerotic heart disease of native coronary artery without angina pectoris; Z95.1 Presence of aortocoronary bypass graft; I10 Essential (primary) hypertension; Z20.828 Contact with and (suspected) exposure to other viral communicable diseases; R94.31 Abnormal electrocardiogram [ECG] [EKG]; Z95.5 Presence of coronary angioplasty implant and graft; Z79.82 Long term (current) use of aspirin; F41.8 Other specified anxiety disorders; K21.9 Gastro-esophageal reflux disease without esophagitis; E78.5 Hyperlipidemia, unspecified; J45.909 Unspecified asthma, uncomplicated; M10.9 Gout, unspecified; M19.90 Unspecified osteoarthritis, unspecified site
CPT/HCPCS: 93005; 85025 ×2; 80048 ×2; 36415; 83735 ×2; 85610; 80061; 80076; 84484 ×3; 83880; 71045; 94760 ×2; 96375; 96374; 99285; U0002; J1650; J3010; J2405

== ENCOUNTER 2020-10-10 12:13 | Emergency (ER) | payer OTHER ==
--- OUTSIDE RECORDS SUMMARY | 2020-10-10 12:16 | XMS REPORT | Clinical Summary ---
:[address] [facility] Address [address] [place] [address] Care Team Providers Name Role Phone Jonelle [...] Internal Medicine 08/13/2020 - Hospital Encounter Cardiology Loaiaz, Rakel S/P CABG x 3 (Primary Dx); 08/24/2020 MD Zoey Coronary artery disease involving [place] coronary artery of [place] heart without angina pectoris; Jana Garcia Coronary artery disease involving [place] coronary artery, angina presence unspecified, unspecified whether [place] or transplanted heart; Bita Encarnacion, NSTEMI (non- ST elevation myocardial infarction) ([facility]) MD Velasco, MD Lilly Dorsey, Earnestine Lobo MD 08/13/2020 Travel 08/12/2020 Documentation Internal Medicine Loaiza, Rakel Greer MD after 10/10/2019 Social History Tobacco Use Types Packs/Day Years Used Date Never Smoker Smokeless Tobacco: Never Used Sex Assigned at Date Recorded Not on file Last Filed Vital Signs Vital Sign Reading Time Taken Comments Blood Pressure 138/75 09/09/2020 1:09 PM [facility] Pulse 84 09/09/2020 1:09 PM [facility] Temperature 37 C (98.6 F) 09/09/2020 1:09 PM [facility] Respiratory Rate 18 09/09/2020 1:09 PM [facility] Oxygen Saturation 98% 09/09/2020 1:09 PM [facility] room a ir Inhaled Oxygen Concentration 40% 08/19/2020 6:00 AM [facility] Weight 88 kg (194 lb) 09/09/2020 1:09 PM [facility] Height 157.5 cm (5' 2") 09/09/2020 1:09 PM [facility] Body Mass Index 35.48 09/09/2020 1:09 PM [facility] Plan of Treatment Health Maintenance Due Date Last Done Comments BREAST CANCER SCREENING 1950 COLON CANCER SCREENING COLONOSCOPY 1950 PNEUMOCOCCAL 65+ YRS (1 of 1 - [id number] PCV13) 2014 DEPRESSION SCREENING (12+) 10/08/2019 INFLUENZA VACCINE (#1) 2020 MEDICARE ANNUAL WELLNESS (YEAR 2 or FIRST YEAR if no 06/09/2020 IPPE) Implants Implanted Type Area Scarfer Device Identifier Shelf Model / Expiration Serial / Date Lot Material Bone Hemostasis 2.5g [id number] - [id number] IMPLANTS N/A : SANTIAGO:BIOSCI [id number] 10/07/2024 [id number] / Implanted: Qty: 2 on 08/17/2020 by Bhupendra Montoya MD at [facility] Chest / [id number] Procedures Procedure Name Priority Date/Time Associated Comments Diagnosis SARS-COV2/RT-PCR Routine 08/24/2020 2:22 Results for this ([facility] & REF LABS) AM [facility] procedure are in the results section. CBC W/PLT COUNT & Routine 08/24/2020 1:12 Result s for this AUTO DIFFERENTIAL AM [facility] procedure are in the results section. BASIC METABOLIC Routine 08/24/2020 1:12 Results for this PANEL (7) AM [facility] procedure are i n the results section. CBC W/PLT COUNT & Routine 08/24/2020 1:12 Result s for this AUTO DIFFERENTIAL AM [facility] procedure are in the results section. CBC W/PLT COUNT & Routine 08/22/2020 9:53 Result s for this AUTO DIFFERENTIAL AM [facility] procedure are in the results section. CBC W/PLT COUNT & Routine 08/22/2020 9:53 Result s for this AUTO DIFFERENTIAL AM [facility] procedure are in the results section. BASIC METABOLIC Routine 08/22/2020 9:53 Results for this PANEL (7) AM [facility] procedure are i n the results section. 2D ECHO W/ DOPPLER Routine 08/20/2020 10:51 Resul ts for this (CW/PW/COLOR) PM [facility] procedure are in the results section. CBC W/PLT COUNT & Routine 08/20/2020 6:24 Result s for this AUTO DIFFERENTIAL AM [facility] procedure are in the results section. CALCIUM, IONIZED Routine 08/20/2020 6:24 Results for this AM [facility] procedure are i n the results section. CBC W/PLT COUNT & Routine 08/20/2020 6:24 Result s for this AUTO DIFFERENTIAL AM [facility] procedure are in the results section. BASIC METABOLIC Routine 08/20/2020 6:24 Results for this PANEL (7) AM [facility] procedure are i n the results section. LACTIC ACID, Routine 08/20/2020 6:24 Results for this ARTERIAL AM [facility] procedure are i n the results section. XR CHEST 1 VIEW Routine 08/20/2020 3:28 Results for this PORTABLE/BEDSIDE AM [facility] procedure a re in the results section. CBC W/PLT COUNT & Routine 08/19/2020 2:44 Result s for this AUTO DIFFERENTIAL PM [facility] procedure are in the results section. LACTIC ACID, VENOUS Routine 08/19/2020 2:44 Resu lts for this PM [facility] procedure are i n the results section. CBC W/PLT COUNT & Routine 08/19/2020 2:44 Result s for this AUTO DIFFERENTIAL PM [facility] procedure are in the results section. CALCIUM, IONIZED Routine 08/19/2020 2:44 Results for this PM [facility] procedure are i n the results section. MAGNESIUM Routine 08/19/2020 2:44 Results for this PM [facility] procedure are i n the results section. PHOSPHORUS Routine 08/19/2020 2:44 Results for this PM [facility] procedure are i n the results section. BASIC METABOLIC Routine 08/19/2020 2:44 Results for this PANEL (7) PM [facility] procedure are i n the results section. XR CHEST 1 VIEW Routine 08/19/2020 1:08 Results for this PORTABLE/BEDSIDE AM [facility] procedure a re in the results section. CBC W/PLT COUNT & Routine 08/18/2020 3:56 Result s for this AUTO DIFFERENTIAL AM [facility] procedure are in the results section. CALCIUM, IONIZED Routine 08/18/2020 3:56 Results for this AM [facility] procedure are i n the results section. CBC W/PLT COUNT & Routine 08/18/2020 3:56 Result s for this AUTO DIFFERENTIAL AM [facility] procedure are in the results section. BASIC METABOLIC Routine 08/18/2020 3:56 Results for this PANEL (7) AM [facility] procedure are i n the results section. LACTIC ACID, Routine 08/18/2020 3:56 Results for this ARTERIAL AM [facility] procedure are i n the results section. BLOOD GAS, ARTERIAL Routine 08/18/2020 3:56 Resu lts for this AM [facility] procedure are i n the results section. PHOSPHORUS Routine 08/18/2020 3:56 Results for this AM [facility] procedure are i n the results section. MAGNESIUM Routine 08/18/2020 3:56 Results for this AM [facility] procedure are i n the results section. XR CHEST 1 VIEW Routine 08/18/2020 1:49 Results for this PORTABLE/BEDSIDE AM [facility] procedure a re in the results section. POCT-GLUCOSE METER Routine 08/17/2020 10:31 Resul ts for this PM [facility] procedure are i n the results section. CBC W/PLT COUNT & STAT 08/17/2020 8:15 Result s for this AUTO DIFFERENTIAL PM [facility] procedure are in the results section. LACTIC ACID, STAT 08/17/2020 8:15 Results for this ARTERIAL PM [facility] procedure are i n the results section. MAGNESIUM STAT 08/17/2020 8:15 Results for this PM [facility] procedure are i n the results section. BASIC METABOLIC STAT 08/17/2020 8:15 Results for this PANEL (7) PM [facility] procedure are i n the results section. CBC W/PLT COUNT & STAT 08/17/2020 8:15 Result s for this AUTO DIFFERENTIAL PM [facility] procedure are in the results section. BLOOD GAS, ARTERIAL STAT 08/17/2020 8:15 Resu lts for this PM [facility] procedure are i n the results section. BLOOD GAS, ARTERIAL STAT 08/17/2020 7:21 Resu lts for this PM [facility] procedure are i n the results section. POCT-GLUCOSE METER Routine 08/17/2020 6:06 Resul ts for this PM [facility] procedure are i n the results section. POCT-GLUCOSE METER Routine 08/17/2020 5:19 Resul ts for this PM [facility] procedure are i n the results section. POCT-GLUCOSE METER Routine 08/17/2020 4:10 Resul ts for this PM [facility] procedure are i n the results section. POCT-GLUCOSE METER Routine 08/17/2020 3:26 Resul ts for this PM [facility] procedure are i n the results section. OXYGEN SATURATION, STAT 08/17/2020 2:09 Resul ts for this MEASURED PM [facility] procedure are i n the results section. LACTIC ACID, STAT 08/17/2020 2:09 Results for this ARTERIAL PM [facility] procedure are i n the results section. XR CHEST 1 VIEW STAT 08/17/2020 2:09 Results for this PORTABLE/BEDSIDE PM [facility] procedure a re in the results section. BLOOD GAS, ARTERIAL STAT 08/17/2020 2:08 Resu lts for this PM [facility] procedure are i n the results section. CBC W/PLT COUNT & STAT 08/17/2020 2:06 Result s for this AUTO DIFFERENTIAL PM [facility] procedure are in the results section. CBC W/PLT COUNT & STAT 08/17/2020 2:06 Result s for this AUTO DIFFERENTIAL PM [facility] procedure are in the results section. PHOSPHORUS STAT Add-on 08/17/2020 2:06 Results for this PM [facility] procedure are i n the results section. MAGNESIUM STAT 08/17/2020 2:06 Results for this PM [facility] procedure are i n the results section. BASIC METABOLIC STAT 08/17/2020 2:06 Results for this PANEL (7) PM [facility] procedure are i n the results section. POCT-ACT Routine 08/17/2020 12:33 Results for this PM [facility] procedure are i n the results section. HGB/HCT (H&H) - STAT STAT 08/17/2020 12:30 Res ults for this LAB PM [facility] procedure are i n the results section. GLUCOSE-STAT LAB STAT 08/17/2020 12:30 Results for this PM [facility] procedure are i n the results section. POTASSIUM-STAT LAB STAT 08/17/2020 12:30 Resul ts for this PM [facility] procedure are i n the results section. SODIUM NA-STAT LAB STAT 08/17/2020 12:30 Resul ts for this PM [facility] procedure are i n the results section. BLOOD GAS, ARTERIAL STAT 08/17/2020 12:30 Resu lts for this PM [facility] procedure are i n the results section. CALCIUM, IONIZED STAT 08/17/2020 12:30 Results for this PM [facility] procedure are i n the results section. BLOOD GAS, ARTERIAL STAT 08/17/2020 12:30 Resu lts for this PM [facility] procedure are i n the results section. POCT-ACT Routine 08/17/2020 11:42 Results for this AM [facility] procedure are i n the results section. HGB/HCT (H&H) - STAT STAT 08/17/2020 11:40 Res ults for this LAB AM [facility] procedure are i n the results section. GLUCOSE-STAT LAB STAT 08/17/2020 11:40 Results for this AM [facility] procedure are i n the results section. POTASSIUM-STAT LAB STAT 08/17/2020 11:40 Resul ts for this AM [facility] procedure are i n the results section. SODIUM NA-STAT LAB STAT 08/17/2020 11:40 Resul ts for this AM [facility] procedure are i n the results section. BLOOD GAS, ARTERIAL STAT 08/17/2020 11:40 Resu lts for this AM [facility] procedure are i n the results section. BLOOD GAS, ARTERIAL STAT 08/17/2020 11:40 Resu lts for this AM [facility] procedure are i n the results section. POCT-ACT Routine 08/17/2020 11:12 Results for this AM [facility] procedure are i n the results section. ANESTHESIA MATT Routine 08/17/2020 11:05 Results f or this AM [facility] procedure are i n the results section. BLOOD GAS, VENOUS Routine 08/17/2020 10:41 Result s for this AM [facility] procedure are i n the results section. HGB/HCT (H&H) - STAT STAT 08/17/2020 10:41 Res ults for this LAB AM [facility] procedure are i n the results section. GLUCOSE-STAT LAB STAT 08/17/2020 10:41 Results for this AM [facility] procedure are i n the results section. POTASSIUM-STAT LAB STAT 08/17/2020 10:41 Resul ts for this AM [facility] procedure are i n the results section. SODIUM NA-STAT LAB STAT 08/17/2020 10:41 Resul ts for this AM [facility] procedure are i n the results section. BLOOD GAS, ARTERIAL STAT 08/17/2020 10:41 Resu lts for this AM [facility] procedure are i n the results section. BLOOD GAS, ARTERIAL STAT 08/17/2020 10:41 Resu lts for this AM [facility] procedure are i n the results section. POCT-ACT Routine 08/17/2020 10:41 Results for this AM [facility] procedure are i n the results section. POCT-ACT Routine 08/17/2020 9:44 Results for this AM [facility] procedure are i n the results section. HGB/HCT (H&H) - STAT Routine 08/17/2020 8:17 Res ults for this LAB AM [facility] procedure are i n the results section. GLUCOSE-STAT LAB Routine 08/17/2020 8:17 Results for this AM [facility] procedure are i n the results section. POTASSIUM-STAT LAB Routine 08/17/2020 8:17 Resul ts for this AM [facility] procedure are i n the results section. SODIUM NA-STAT LAB Routine 08/17/2020 8:17 Resul ts for this AM [facility] procedure are i n the results section. BLOOD GAS, ARTERIAL Routine 08/17/2020 8:17 Resu lts for this AM [facility] procedure are i n the results section. BLOOD GAS, ARTERIAL Routine 08/17/2020 8:17 Resu lts for this AM [facility] procedure are i n the results section. MATT 08/17/2020 7:07 Coronary artery AM [facility] disease involving [place] heart, angina presence unspecified, unspecified vessel or lesion type ENDOSCOPIC 08/17/2020 7:07 Coronary artery HARVEST,VEIN AM [facility] disease involving [place] heart, angina presence unspecified, unspecified vessel or lesion type BYPASS,AORTO 08/17/2020 7:07 Coronary artery CORONARY CAREY/SVG AM [facility] disease involving [place] heart, angina presence unspecified, unspecified vessel or lesion type ECG 12-LEAD Routine 08/16/2020 11:36 PM [facility] Procedure Note - Interface, External Ris In - 08/16/2020 10:38 PM [facility] Ventricular Rate 83 BPM Atrial Rate 83 BPM P-R Interval 202 ms QRS Duration 80 ms Q-T Interval 412 ms QTC Calculation(Bazett) 484 ms P [place] 63 degrees R [place] -30 degrees T [place] 30 degrees Normal sinus rhythm Possible Left atrial enlarge ment Left axis deviation Prolonged QT Abnormal ECG No previous ECGs available ECG 12-LEAD Routine 08/16/2020 11:36 PM [facility] Resu lts for this procedure are i n the results section . HC CAROTID DOPPLER TRINITY STAT 08/16/2020 11:26 PM [facility] Results for this procedure are i n the results section . HC VENOUS DOPPLER EXT TRINITY STAT 08/16/2020 10:49 PM [facility] Results for this procedure are i n the results section . CBC W/PLT COUNT & AUTO Routine 08/16/2020 9:31 PM [facility] Results for this DIFFERENTIAL procedure are i n the results section . ABORH, MANUAL STAT 08/16/2020 9:31 PM [facility] Res ults for this procedure are i n the results section . APTT Routine 08/16/2020 9:31 PM [facility] Resu lts for this procedure are i n the results section . PROTHROMBIN TIME/INR Routine 08/16/2020 9:31 PM [facility] Results for this procedure are i n the results section . CBC W/PLT COUNT & AUTO Routine 08/16/2020 9:31 PM [facility] Results for this DIFFERENTIAL procedure are i n the results section . LIPID PANEL Routine 08/16/2020 9:31 PM [facility] Resu lts for this procedure are i n the results section . HEMOGLOBIN A1C Routine 08/16/2020 9:31 PM [facility] Re sults for this procedure are i n the results section . COMPREHENSIVE METABOLIC Routine 08/16/2020 9:31 PM [facility] Results for this PANEL procedure are i n the results section . MAGNESIUM Routine 08/16/2020 9:31 PM [facility] Resu lts for this procedure are i n the results section . TYPE AND SCREEN, AUTOMATED Routine 08/16/2020 9:12 PM [facility] Results for this procedure are i n the results section . 2D ECHO W/ DOPPLER LIONEL 08/15/2020 4:50 PM [facility] Results for this (CW/PW/COLOR) procedure are in the results section . SARS-COV2/RT-PCR (SL[facility] & REF Routine 08/14/2020 4:50 AM [facility] Results for this LABS) procedure are i n the results section . CBC W/PLT COUNT & AUTO Routine 08/14/2020 4:46 AM [facility] Results for this DIFFERENTIAL procedure are i n the results section . PROTHROMBIN TIME/INR Routine 08/14/2020 4:46 AM [facility] Results for this procedure are i n the results section . CBC W/PLT COUNT & AUTO Routine 08/14/2020 4:46 AM [facility] Results for this DIFFERENTIAL procedure are i n the results section . MAGNESIUM Routine 08/14/2020 4:46 AM [facility] Resu lts for this procedure are i n the results section . HEPATIC FUNCTION PANEL Routine 08/14/2020 4:46 AM [facility] Results for this procedure are i n the results section . BASIC METABOLIC PANEL (7) Routine 08/14/2020 4:46 AM [facility] Results for this procedure are i n the results section . CT BRAIN WITHOUT IV CONTRAST STAT 08/14/2020 4:20 AM [facility] Results for this procedure are i n the results section . REPORT OF PROCEDURE - 08/13/2020 Result s for this ENDOSCOPY SCAN procedure are in the results section . after 10/10/2019 Results SARS-CoV2/RT-PCR (Asymptomatic ONLY) (08/24/2020 2:22 AM [facility])Only the most recent of2 resultswithin the time period is included. SARS-COV2/RT-PCR Negative Not Detected, RYANN BURNH[facility] Negative, See [facility] external report CENTER for linked test SARS-COV-2 [facility] PERFORMING LAB [facility] Specimen Other - Nasopharyngeal wall structure (b govind structure) Narrative Performed At Negative result for this test determines that [facility] SARS-CoV-2 RNA was not present in the [...] the Act. Fact Sheet for Healthcare Providers: https://www.[employer]Med[employer].com/sites/default/files/pro duct/documents/Fact_Sheet_HC_Providers_Lyra_SA RS-CoV-2.pdf Fact Sheet for Healthcare Patients: https://www.BioMedFlex.Connectbright/sites/default/files/pro duct/documents/Fact_Sheet_Patients_Lyra_SARS-C oV-2.pdf Performing Laboratory: [facility] [address] [place] [address] Performing Organization Address City/State/Zipcode Phone Number [facility] [address] [place] [address] CENTER CBC with platelet count + automated diff (08/24/2020 1:12 AM [facility])Only the most recent of9 resultswithin the time period is included. Pathologist Sig nature WBC 7.7 3.5 - 10.5 [facility] K/L [facility] RBC 2.75 (L) 3.93 - 5.22 [facility] M/L [facility] Hemoglobin 8.0 (L) 11.2 - 15.7 [facility] GM/DL [facility] Hematocrit 25.0 (L) 34.1 - 44.9 % [facility] MCV 90.9 79.4 - 94.8 fL [facility] MCH 29.1 25.6 - 32.2 pg [facility] MCHC 32.0 (L) 32.2 - 35.5 [facility] GM/[facility] RDW 13.9 11.7 - 14.4 % [facility] Platelets 256 150 - 450 K/CU [facility] MPV 10.1 9.4 - 12.3 fL [facility] nRBC 0 0 - 0 /100 WBC [facility] % Neutros 69 % [facility] % Lymphs 19 % [facility] % Monos 10 % [facility] % Eos 1 % [facility] % Baso 0 % [facility] # Neutros 5.33 1.56 - 6.13 [facility] # Lymphs 1.48 1.18 - 3.74 [facility] # Monos 0.73 (H) 0.24 - 0.36 [facility]/L [facility] # Eos 0.08 0.04 - 0.36 [facility] # Baso 0.03 0.01 - 0.08 [facility] Immature 1 0 - 1 % [facility] Granulocytes-Relative [facility] Specimen Blood Performing Organization Address City/State/Zipcode Phone Number [facility] [address] [place] [address] CENTER Basic Metabolic Panel (08/24/2020 1:12 AM [facility])Only the most recent of8 results within the time period is included. Sodium 138 136 - 145 meq/L [facility] Potassium 3.8 3.5 - 5.1 meq/L [facility] Chloride 104 98 - 107 meq/L [facility] CO2 26 22 - 29 meq/L [facility] BUN 9 7 - 21 mg/dL [facility] Creatinine 0.66 0.57 - 1.25 [facility] mg/dL [facility] Glucose 110 (H) 70 - 105 mg/dL [facility] Calcium 8.9 8.4 - 10.2 [facility] mg/dL [facility] EGFR 107Comment: mL/min/1.[address] [facility] ESTIMATED GFR IS NOT [facility] ACCURATE CENTER CREATININE CLEARANCE IN PREDICTING GLOMERULAR FILTRATION RATE. ESTIMATED GFR IS NOT APPLICABLE FOR DIALYSIS PATIENTS. Specimen Blood Narrative Performed At Watch Assembly Inspector [facility] Performing Organization Address City/State/Zipcode Phone Number [facility] [address] [place] [address] CENTER 2D Echo W/Doppler(CW/PW/Color) (08/20/2020 10:51 PM [facility]) Pathologist Sig nature Ejection Fraction [facility]CHO [facility] Specimen Narrative Performed At Transthoracic Echocardiography Report (T TE) [facility] ECHO [facility] Dem[place] Patient Name STEW, Date of Study 08/20/2020 COLE Gender Female Visit Number [id number] Race Black Room Number [id number] Number Date of 1950 Referring Physician Jonathan Ragland MD Age 69 year(s) 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 Interpre catherine Murphy MD [place] [facility] n [...] TR Gradient: 26 mmHg Performing Organization Address [facility] Phone Number [facility] ECHO HEARTLAB [facility] Calcium, Ionized (08/20/2020 6:24 AM [facility])Only the most recent of4 resultswithin the time period is included. Pathologist Sig nature Calcium, Ion 1.12 1.12 - 1.27 mmol/L [facility] pH, Blood 7.41 [facility] Specimen Blood Performing Organization Address [facility] Phone Number [facility] [address] [place] [address] CENTER Lactic Acid, Arterial (08/20/2020 6:24 AM [facility])Only the most recent of4 results within the time period is included. Pathologist Sig nature Lactate, Art 1.5 0.5 - 2.2 mmol/L [facility] Specimen Blood, Arterial Narrative Performed At Watch Assembly Inspector ID - DB [facility] Performing Organization Address City/State/Zipcode Phone Number [facility] [address] [place] [address] CENTER XR chest 1 view portable / bedside (08/20/2020 3:28 AM [facility])Only the most recent of4 resultswithin the time [...] External Ris In - 08/20/2020 6:25 AM [facility] FINAL REPORT Chest one view. Clinical history: [...] RIS Lactic acid, venous (08/19/2020 2:44 PM [facility]) Lactate, Venous 3.11 (H)Comment: 0.50 - 2.20 [facility] Specimen slightly mmol/L [facility] hemolyzed [place] Specimen Blood Narrative Performed At Watch Assembly Inspector ID - [facility] Performing Organization Address [facility] Phone Number [address] [address] CENTER Phosphorus (08/19/2020 2:44 PM [facility])Only the most recent of3 resultswithin the time period is included. Pathologist Sig nature Phosphorus 2.2 (L) 2.3 - 4.7 mg/dL [facility] Specimen Blood Narrative Performed At Watch Assembly Inspector ID - [facility] Performing Organization Address [facility] Phone Number [address] [address] CENTER Magnesium (08/19/2020 2:44 PM [facility])Only the most recent of6 resultswithin the time period is included. Pathologist Sig nature Magnesium 2.0 1.6 - 2.6 mg/dL [facility] Specimen Blood Narrative Performed At Watch Assembly Inspector ID - [facility] Performing Organization Address [facility] Phone Number [address] [address] [place] Blood gas, arterial (08/18/2020 3:56 AM MEN'S GOLF COACH)Only the most recent of8 results within the time period is included. Pathologist Sig nature pH, Arterial 7.42 7.35 - 7.45 [facility] pCO2, Arterial 35 35 - 45 mm Hg [facility] pO2, Arterial 86 80 - 90 mm Hg [facility] O2 Sat, Arterial 96.8 96.0 - 97.0 % [facility] HCO3, Arterial 22 21 - 29 mmol/L [facility] Base Excess, Arterial -1.7 -2.0 - 3.0 [facility] HEALT H mmol/L [facility] Patient Temperature 36.9 [facility] FIO2 32.0 [facility] Specimen Blood, Arterial Performing Organization Address City/[facility]/Zipcode Phone Number [address] [address] [place] POC-Glucose meter (08/17/2020 10:31 PM MEN'S GOLF COACH)Only the most recent of5 results within the time period is included. POC-Glucose Meter 123 (H) 70 - 110 mg/dL [facility] Comment: [facility] : TESTED AT [address], [address] MEDICAL CENTER : Watch Assembly Inspector/Blending Technician ID = [id number] for ZACARIAS BOWMAN Specimen Blood Performing Organization Address [facility] Phone Number [address] [address] [place] Oxygen saturation, measured (08/17/2020 2:09 PM MEN'S GOLF COACH) Pathologist Sig nature O2 Saturation (Measured) 66.4 % [facility] Specimen Blood Performing Organization Address [facility]/Zipcode Phone Number [address] [address] [place] POC ACTIVATED CLOTTING TIME (08/17/2020 12:33 PM MEN'S GOLF COACH)Only the most recent of5 resultswithin the time period is included. Activated Clotting [address] [facility] Time Comment: [facility] : 74-137 seconds, Baseline CENTER : TESTED AT [address], [address] : Watch Assembly Inspector/Blending Technician ID = [id number] for BHUPENDRA WU Specimen Blood Performing Organization Address [facility]/Zipcode Phone Number [address] [address] CENTER Potassium-Stat Lab (08/17/2020 12:30 PM MEN'S GOLF COACH)Only the most recent of4 results within the time period is included. Pathologist Sig nature Potassium 5.0 3.6 - 5.5 meq/L [facility] Specimen Blood, Arterial Performing Organization Address City/[facility] [place] [address] [place] Sodium Na-Stat Lab (08/17/2020 12:30 PM MEN'S GOLF COACH)Only the most recent of4 results within the time period is included. Pathologist Sig nature Sodium 133 (L) 136 - 145 meq/L [facility] Specimen Blood, Arterial Performing Organization Address City/[facility] Phone Number [place] [phone] [place] Glucose-Stat Lab (08/17/2020 12:30 PM MEN'S GOLF COACH)Only the most recent of4 resultswithin the time period is included. Pathologist Sig nature Glucose 206 (H) 70 - 110 mg/dL [facility] Specimen Blood, Arterial Performing Organization Address [facility] [address] [place] HGB/HCT (H&H)-Stat Lab (08/17/2020 12:30 PM MEN'S GOLF COACH)Only the most recent of4 resultswithin the time period is included. Pathologist Sig nature Hemoglobin 8.4 (L) 12.0 - 15.0 GM/DL [facility] Hematocrit 25.0 (L) 36.0 - 45.0 % [facility] Specimen Blood, Arterial Performing Organization Address City/[facility] Phone Number [address] [address] [place] MATT (08/17/2020 11:05 AM MEN'S GOLF COACH) Narrative Performed At [employer] MD 08/17/2020 12:34 PM MATT Date: 08/17/2020 [...] Summary: Blood gas, venous (08/17/2020 10:41 AM MEN'S GOLF COACH) Pathologist Sig nature pH, [place] 7.35 7.32 - 7.42 [facility] pCO2, [place] 44 41 - 51 mm Hg [facility] pO2, [place] 44 (H) 25 - 40 mm Hg [facility] O2 Sat, [place] 84.4 (H) 40.0 - 70.0 % [facility] HCO3, [place] 25 21 - 29 mmol/L [facility] Base Excess, [place] -1.9 -2.0 - 3.0 [facility] mmol/L [facility] Patient Temperature 34.0 [facility] FIO2 60.0 [facility] Specimen Blood Performing Organization Address City/State/Zipcode Phone Number [facility] [address] [place] [address] CENTER Electrocardiogram, 12-lead (08/16/2020 11:36 PM MEN'S GOLF COACH) Specimen Narrative Performed At This result has an attachment that is no t available. Ventricular Rate 83 BPM GE MUSE Atrial Rate 83 BPM P-R Interval 202 ms QRS Duration 80 ms Q-T Interval 412 ms QTC Calculation(Bazett) 484 ms P [place] 63 degrees R [place] -30 degrees T [place] 30 degrees Normal sinus rhythm Possible Left atrial enlargement Left axis deviation Nonspecific T wave abnormality Prolonged QT Abnormal ECG No previous ECGs available Confirmed by MD DELUCA YOCHAI ([id number]) on 08/17/2020 1:48:32 PM Procedure Note Interface, External Ris In - 08/17/2020 1:48 PM MEN'S GOLF COACH Ventricular Rate 83 BPM Atrial Rate 83 BPM P-R Interval 202 ms QRS Duration 80 ms Q-T Interval 412 ms QTC Calculation(Bazett) 484 ms P [place] 63 degrees R [place] -30 degrees T [place] 30 degrees Normal sinus rhythm Possible Left atrial enlargement Left axis deviation Nonspecific T wave abnormality Prolonged QT Abnormal ECG No previous ECGs available Confirmed by MD DELUCA YOCHAI ([id number]) on 08/17/2020 1:48:32 PM Performing Organization Address City/State/Zipcode Phone Number GE MUSE Carotid doppler bilateral (08/16/2020 11:26 PM MEN'S GOLF COACH) Pathologist Sig nature Ejection Fraction [facility] ECHO HEARTLAB MKCK [facility] Specimen Impressions Performed At Right Impression [facility] 1. There is <50% diameter reduction [...] Additional Measurements:ICAPSV/CCAPSV 1.3.ICAEDV/CCAEDV 1.77. Narrative Performed At [facility] - Carotid Duplex Study [facility] HEARTLAB [facility] Demographics Patient Name COLE MATHIAS Date of Study 08/16/2020 Age 69 Visit Number [id number] Gender Female Accession Number [id number] Date of 1950 Referring Johnny Galvez [facility] Phys[facility] MD Rod Pathology Assistant Daniel Duran Interpreting Physician DELPHINE Hernandez Procedure Type of Study: Cerebral: Carotid, CAROTID DOPPLER, [facility]. Indications for Study:Pre-op CABG. Patient Status:STAT. Study Location:Portable. Technical Quality:Adequate visualization . Risk Factors History of Disease + +----+ + !Diagnosis !Date!Comments ! + +----+ + !History/Risk Factors: ! !CAD, HTN, Recent Trauma, Morbid Obesity ! + +----+ + Procedure Note Interface, External Ris In - 08/17/2020 7:59 AM MEN'S GOLF COACH [facility] - Carotid Duplex Study Demographics Patient Name COLE MATHIAS Da te of Study 08/16/2020 Ag e 69 Visit Number [id number] Ge nder Female Accession Number [id number] Da te of 1950 Referring Kingsleysofie LennyRose Ro om Number [facility] Physician Rod MD Pathology Assistant Daniel Duran In malik Araujo, Ph ysician Procedure Type of Study: [...] 1.77. Performing Organization Address City/State/Zipcode Phone Number [facility] Amba DefenceMILLER [facility] Vein Mapping Legs Bilateral (08/16/2020 10:49 PM MEN'S GOLF COACH) Pathologist [facility] nature Ejection Fraction [facility] ECHO HEARTSIL4 Systems [facility] Specimen Impressions Performed At Right Impression [facility] [employer] HEARTKakKstatiENCOM[facility] 1. There is no deep venous venous [...] At LAB - Lower Extremities Vein Mapping [facility] HEARTLAB [facility] Demographics Patient Name COLE MATHIAS Date of Study 08/16/2020 Age 69 Visit Number [id number] Gender Female Accession Number [id number] Date of 1950 Referring Trungpepe Gama Room Number [facility] Physician MD Rod Pathology Assistant Daniel Duran Interpreting Rakel Araujo, Physician Procedure [...] External Ris In - 08/17/2020 7:58 AM MEN'S GOLF COACH [facility] - Lower Extremities Vein Mapping Demographics Patient Name COLE MATHIAS te of Study 08/16/2020 Ag e 69 Visit Number [id number] Ge nder Female Accession Number [id number] Da te of 1950 Referring Johnny Álvarez om Number [facility] Physician MD Rod Pathology Assistant Daniel Duran In terpreting Rakel Araujo, Ph [...] Address City/State/Zipcode Phone Number [facility] ECHO HEARTLAB MKCKDILIPON jacob STAFFORD (08/16/2020 9:31 PM MEN'S GOLF COACH) Pathologist Sig nature ABO Grouping A [facility] DICAL [place] Rh Factor POS [facility] Specimen Blood Performing Organization Address City/[facility]/Zipcode Phone Number [facility] [address] [place] [address] aPTT (08/16/2020 9:31 PM MEN'S GOLF COACH) Pathologist Sig [facility] PTT 31.5 22.5 - 36.0 seconds [facility] Specimen Blood Performing Organization Address [facility] Phone Number [address] [address] [place] Prothrombin time/INR (08/16/2020 9:31 PM MEN'S GOLF COACH)Only the most recent of2 results within the time period is included. Pathologist Sig [facility] Protime 13.9 11.9 - 14.2 seconds [facility] INR 1.10 <=5.90 [facility] Specimen Blood Narrative Performed At Effective 03/05/2019: PT Reference Range [facility] Change New: 11.9-14.2 Previous: 11.7-14.7 RECOMMENDED COUMADIN/WARFARIN INR THERAPY RANGES STANDARD DOSE: 2.0-3.0 Includes: PROPHYLAXIS for venous thrombosis, systemic embolization; TREATMENT for venous thrombosis and/or pulmonary embolus. HIGH RISK: Target INR is 2.5-3.5 for patients wiht mechanical heart valves. Performing Organization Address City/State/[facility] Phone Number [place] [phone] [place] [address] CENTER Hemoglobin A1c (08/16/2020 9:31 PM MEN'S GOLF COACH) Pathologist Sig [facility] Hemoglobin A1C 5.8 4.3 - 6.1 % [facility] Specimen Blood Performing Organization Address City/[facility]/Zipcode Phone Number [address] [address] [place] Lipid panel (08/16/2020 9:31 PM MEN'S GOLF COACH) Pathologist Sig nature Triglycerides 91Comment: Specimen mg/dL [facility] slightly hemolyzed [facility] Cholesterol 107Comment: Specimen mg/dL [facility] hemolyzed [facility] HDL 31 mg/dL [facility] LDL Calculated 58 mg/dL [facility] Specimen Blood Narrative Performed At Triglyceride Reference Range: [facility] Low Risk <150 Borderline 150-199 High Risk 200-499 Very High Risk >=500 Cholesterol Reference Range: Low Risk <200 Borderline 200-239 High Risk >240 HDL Cholesterol Reference Range: Low Risk >=60 High Risk <40 LDL Cholesterol Reference Range: Optimal <100 Near Optimal 100-129 Borderline 130-159 High 160-189 Very High >=190 Watch Assembly Inspector ID - [facility] Performing Organization Address City/State/Zipcode Phone Number [address] [address] C[place] Comprehensive metabolic panel (08/16/2020 9:31 PM MEN'S GOLF COACH) Protein, Total 7.0Comment: 6.0 - 8.3 [facility] Specimen slightly gm/dL [facility] Albumin 3.8Comment: 3.5 - 5.0 [facility] Specimen slightly g/dL [facility] Alkaline 99 40 - 150 U/L [facility] Phosphatase [facility] Total Bilirubin 0.4Comment: 0.2 - 1.2 [facility] Specimen slightly mg/dL [facility] Sodium 137 136 - 145 [facility] meq/L [facility] Potassium 4.4Comment: 3.5 - 5.1 [facility] Specimen slightly meq/L [facility] Chloride 101 98 - 107 [facility] meq/L [facility] CO2 25 22 - 29 meq/L [facility] BUN 22 (H) 7 - 21 mg/dL [facility] Creatinine 0.97Comment: 0.57 - 1.25 [facility] Specimen slightly mg/dL [facility] Glucose 134 (H) 70 - 105 [facility] mg/dL [facility] Calcium 9.8 8.4 - 10.2 [facility] mg/dL [facility] AST 40 (H)Comment: 5 - 34 U/L [facility] Specimen [facility] ALT 33Comment: 6 - 55 U/L [facility] Specimen [facility] EGFR 69Comment: mL/min/1.73 [facility] ESTIMATED GFR IS sq [facility] NOT ACCURATE [facility]ENTER CREATININE CLEARANCE IN PREDICTING GLOMERULAR FILTRATION RATE. ESTIMATED GFR IS NOT APPLICABLE FOR DIALYSIS PATIENTS. Specimen Blood Narrative Performed At Watch Assembly Inspector ID - JONNATHAN Becker [facility] Performing Organization Address City/[facility] Phone Number [address] [address] CENTER Type and screen, automated (08/16/2020 9:12 PM MEN'S GOLF COACH) Pathologist Sig nature ABO/RH AUTOMATED A [facility] (BEAKER) [facility] echo CENTER Ab Scrn NEGATIVEComment [facility] : echo [facility] Specimen Blood Performing Organization Address City/[facility] Phone Number [address] [address] 2D Echo W/Doppler(CW/PW/Color) (08/15/2020 4:50 PM MEN'S GOLF COACH) Pathologist Sig nature Ejection Fraction [facility] ECHO HEARTLAB CK [facility] Specimen Narrative Performed At Transthoracic Echocardiography Report (T TE) [facility] ECHO [facility] Demographics Patient Name COLE MATHIAS Date of Study 08/15/2020 Gender Female Visit Number [id number] Race Black Room Number [id number] Number Date of 1950 Referring Physician Jennifer Bishop Age 69 year(s) Pathology Assistant Abed Ashu Interpreting Jeffrey martin, Physician Fellow [...] External Ris In - 08/16/2020 9:53 AM MEN'S GOLF COACH Transthoracic Echocardiography Report (TTE) Demographics Patient Name COLE MATHIAS Date of Study 08/15/2020 Gender Female Visit Number [id number] Race Black Room [place] [address] Number Date of 1950 Referri Physician Jennifer [...] T CI: 1.82 l/min/m^2 Performing Organization Address [facility] Phone Number [facility] HEART[facility] Hepatic function panel (08/14/2020 4:46 AM MEN'S GOLF COACH) Pathologist Sig nature Protein, Total 7.0 6.0 - 8.3 gm/dL [facility] Albumin 3.9 3.5 - 5.0 g/dL [facility] Total Bilirubin 0.4 0.2 - 1.2 mg/dL [facility] Bilirubin, Direct 0.2 0.1 - 0.5 mg/dL [facility] Alkaline Phosphatase 96 40 - 150 U/L [facility] AST 21 5 - 34 U/L [facility] ALT 24 6 - 55 U/L [facility] Specimen Blood Narrative Performed At Watch Assembly Inspector [facility] Performing Organization Address City/[facility] Phone Number [facility] [address] [place] [address] brain without IV contrast (08/14/2020 4:20 AM MEN'S GOLF COACH) Specimen Narrative Performed At FINAL REPORT [facility] EXAM: CT, BRAIN, WITHOUT CONTRAST CLINICAL [...] External Ris In - 08/14/2020 5:59 AM MEN'S GOLF COACH FINAL REPORT EXAM: CT, BRAIN, WITHOUT CONTRAST [...] available. Ordered by an unspecified provider. after 10/10/2019 Insurance Payer Benefit Plan / Subscriber ID Effective Dates Phone Addre ss Type Group [facility]/MEDICARE [id number] 2019-Present MEDICARE MGD CARE COMPLETE [place] MED[place] MED[place]ID [place] [id number] 2018-Present [employer] - UNITED MEDICARE [id number] 2019-Present MEDICARE MGD CARE HMO Advance Directives For more information, please contact: [phone] Code Status Date Activated Date Inactivated Comments Full Code 08/16/2020 9:00 PM 08/24/2020 5:06 PM This code status was determined by: Patient Full Code 08/13/2020 9:29 PM 08/16/2020 9:00 PM This code status was determined by: Patient Full Code 12/11/2018 5:02 AM 12/13/2018 5:56 PM This code status was determined by: Patient
--- OUTSIDE RECORDS SUMMARY | 2020-10-10 12:20 | XMS REPORT | Continuity of Care Document ---
:1950 Author Organization [facility] t Address [address] [place] [address] Care Team Providers Name Role Phone Kristi [...] Policy Type Policy Effective Date Expiration Date Sour Number [facility] - [id number] 2019 RYANN S t [facility] MEDICARE MGD 00:00:00 - Medical CAREAARP/MEDICARE Center [id number]/[id number] 019-Present ROBLERO [id number] 2018 [facility] MEDICAIDMEDICAID 00:00:00 - Medica l [id number]/ Ce nter 9-Present Problems Condition Condition Condition [...] 2019-10 [facility] artery artery 10-13 [facility] - disease disease 00:00: Medical 00 Center Essential Essential Problem Active [facility] hypertensi Hypertensi 04-15 da on on 00:00: Medical 00 Group Heart Heart Problem Active [place] disease Disease 04-15 da 00:00: Medical 00 Group NSTEMI NSTEMI Disease Active [facility] ([facility] (non-ST 3- [facility] - elevation elevation 00:00: Medi amirah myocardial myocardial 00 Ce nter infarction infarction ) ) Acute Acute Disease Active [facility] respirator respirator Niyah kes - y y Medical insufficie insufficie Ce nter ncy ncy Other Other Disease Active [facility] specified specified Luke s - hypotensio hypotensio Me dical n n Center Acute Acute Disease Active [facility] blood loss blood loss [facility] - anemia anemia [facility] Center Hyperglyce Hyperglyce Disease Active [facility] maame [facility] Allergies, Adverse Reactions, Alerts Allergy Allergy Status Severity Reaction(s) Onset Inactive Treating Comm ents Source Name Type Date Date Clinician Tramadol Propensi Active [facility] ty to 3-06 [facility] - adverse 00:00: Medical reaction 00 Center s Tramadol Allergy Active [place] to da substanc Medical e Group Social History Social Habit Start Date Stop Date Quantity Comments Source Sex Assigned At [facility] Tobacco use and 2020-09-09 2020-09-09 Never used [facility] - exposure 00:00:00 00:00:00 Medical Center Smoking Status Start Date Stop Date Source Never sm[facility] Medications Ordered Filled Start Stop [...] [address] (XANAX) 2 -24 08-17 by mouth 3 [facility] es - MG tablet 14:09: 00:00 (three) Medi amirah 20 :00 times Center daily as needed for Sleep. HYDROcodone 2019-10- No 1{tbl} Take [address] -acetaminop -24 08-17 tablet by Niyah kes - hen (NORCO 14:09: 00:00 mouth 2 Med ical 7.5-325) 20 :00 (two) Center 7.5-325 mg times per tablet daily as needed for Pain. carvedilol 2019-10- No 25mg Take [address] (COREG) 25 -17 11-17 by mouth 2 Niyah kes - MG tablet 14:09: 00:00 (two) Medica l 20 :00 times Center daily with breakfast and dinner. amLODIPine 2019-10- No 10mg QD Take [address] (NORVASC) -17 11-17 by mouth [facility] - 10 MG 14:09: 00:00 daily. Medical tablet 20 :00 Center citalopram 2019-10- Yes 20mg QD Take [address] (CeleXA) 20 10-24 tablet (20 L ukes - MG tablet [...] amirah L) 12.5 MG 00 :00 daily. Center tablet albuterol 2019-10 Yes 2.5mg Take 2.[address] (PROVENTIL) 0-22 mg by [facility] - 2.5 mg /3 00:00: nebulizati Me dical mL (0.083 00 on every 6 Cent er %) (six) nebulizer hours as solution needed. meloxicam 2019-10 No 15mg QD Take [address] (MOBIC) 15 0-12 11-17 by mouth Luke s - MG tablet 00:00: 00:00 daily. Medic al 00 :00 [place] colchicine 2019-10 Yes .6mg QD Take 0.[address] (COLCRYS) 0-02 mg by [facility] - 0.6 mg 00:00: mouth Medical tablet 00 daily. [place] losartan 2019-10 Yes 1{tbl} QD Take 1 [facility] (COZAAR) 0-02 tablet by [facility] - 100 MG 00:00: mouth Medical tablet 00 daily. [place] Vital Signs Vital Name Observation Time Observation Value Comments Source BP Diastolic 2019-05-13 00:00:00 98 [facility]Hg[facility] Height 2019-05-13 00:00:00 62 [in_i] [facility] BMI (Body Mass 2019-05-13 00:00:00 38.6 kg/m2 [facility] Index) Group BP Systolic 2019-05-13 00:00:00 170 mm[Hg] [facility] Body Weight 2019-05-13 00:00:00 211 [lb_av] [facility] BP Diastolic 2019-04-15 00:00:00 94 mm[Hg] [facility] Height 2019-04-15 00:00:00 62 [in_i] [facility] BMI (Body Mass 2019-04-15 00:00:00 37.9 kg/m2 [facility] Medical Index) Group BP Systolic 2019-04-15 00:00:00 130 mm[Hg] [facility] [facility] Body Weight 2019-04-15 00:00:00 207 [lb_av] [facility] Systolic blood 2020-09-09 13:09:00 138 mm[Hg] [facility] Diastolic blood 2020-09-09 13:09:00 75 mm[Hg] [facility] rate 2020-09-09 13:09:00 84 /min [facility] Body temperature 2020-09-09 13:09:00 37 Melinda [facility] Respiratory rate 2020-09-09 13:09:00 18 /min [facility] Body height 2020-09-09 13:09:00 157.5 cm [facility] Body weight 2020-09-09 13:09:00 87.998 kg [facility] BMI 2020-09-09 13:09:00 35.48 kg/m2 [facility] Oxygen saturation in 2020-09-09 13:09:00 98 /min room air [facility] - Arterial blood by Medical Ce nter Pulse oximetry Procedures Procedure Date / Time Performing Clinician Source Performed SARS-COV2/RT-PCR ([facility] & 2020-08-24 02:22:00 [facility] BASIC METABOLIC PANEL 2020-08-24 01:12:01 Leslie [facility] () [facility] CBC W/PLT COUNT & AUTO 2020-08-24 01:12:01 Nelsno [facility] DIFFERENTIAL [facility] BASIC METABOLIC PANEL 2020-08-22 09:53:00 [facility] () [facility] CBC W/PLT COUNT & AUTO 2020-08-22 09:53:00 [facility] DIFFERENTIAL [facility] 2D ECHO W/ DOPPLER 2020-08-20 22:51:16 Jonathan Ragland [facility] (CW/PW/COLOR) [facility] LACTIC ACID, ARTERIAL 2020-08-20 06:24:00 Lina Tanadalbertoe Polycarp [facility] BASIC METABOLIC PANEL 2020-08-20 06:24:[address] [facility] () [facility] CALCIUM, IONIZED 2020-08-20 06:24:00 LinaLizandro Polycarp [facility] CBC W/PLT COUNT & AUTO 2020-08-20 06:24:00 LinaLizandro watsonarp [facility] XR CHEST 1 VIEW 2020-08-20 03:28:00 LinaLizandro watsonarp [facility] PORTABLE/BEDSIDE [facility] BASIC METABOLIC PANEL 2020-08-19 14:44:00 Rod, Mrinalini [facility] () [facility] PHOSPHORUS 2020-08-19 14:44:00 Rod, [facility] MAGNESIUM 2020-08-19 14:44:00 Rod, [facility] CALCIUM, IONIZED 2020-08-19 14:44:00 Rod, [facility] LACTIC ACID, VENOUS 2020-08-19 14:44:00 Rod, [facility] CBC W/PLT COUNT & AUTO 2020-08-19 14:44:00 Rod, Trungnalini C HI [facility] XR CHEST 1 VIEW 2020-08-19 01:08:00 LinaLizandro [facility] MAGNESIUM 2020-08-18 03:56:00 Leslie [facility] PHOSPHORUS 2020-08-18 03:56:00 Leslie [facility] BLOOD GAS, ARTERIAL 2020-08-18 03:56:00 LinaLizandro Polycarp [facility] I [facility] LACTIC ACID, ARTERIAL 2020-08-18 03:56:00 LinaAdee Polycarp [facility] BASIC METABOLIC PANEL 2020-08-18 03:56:00 LinaLizandro Polycarp [facility] ([address] [place] [address] CALCIUM, IONIZED 2020-08-18 03:56:00 LinaLizandro Polycarp [facility] CBC W/PLT COUNT & AUTO 2020-08-18 03:56:00 Lina Tanakalisa [facility] XR CHEST 1 VIEW 2020-08-18 01:49:[address] [facility] PORTABLE/BEDSIDE [facility] POCT-GLUCOSE METER 2020-08-17 22:31:00 Rod [facility] BLOOD GAS, ARTERIAL 2020-08-17 20:15:00 [facility] BASIC METABOLIC PANEL 2020-08-17 20:15:[address] [facility] (7) [facility] Center MAGNESIUM 2020-08-17 20:15:00 Lina [facility] LACTIC ACID, ARTERIAL 2020-08-17 20:15:00 Lina [facility] CBC W/PLT COUNT & AUTO 2020-08-17 20:15:00 Lina [facility] BLOOD GAS, ARTERIAL 2020-08-17 19:21:00 LinaLawrenceakalisa [facility] POCT-GLUCOSE METER 2020-08-17 18:06:00 Rod [facility] POCT-GLUCOSE METER 2020-08-17 17:19:[facility] PO[facility]SE METER 2020-08-17 16:10:00 Rod [facility] POCT-GLUCOSE METER 2020-08-17 15:26:00 Rod [facility] XR CHEST 1 VIEW 2020-08-17 14:09:[address] [facility] - PORTABLE/BEDSIDE [facility] LACTIC ACID, ARTERIAL 2020-08-17 14:09:00 Jen Nelson [facility] - [facility] OXYGEN SATURATION, 2020-08-17 14:09:00 Jen Nelson [facility] - MEASURED [facility] BLOOD GAS, ARTERIAL 2020-08-17 14:08:00 Maria [facility] BASIC METABOLIC PANEL 2020-08-17 14:06:00 Jen Nelson [facility] (7) [facility] MAGNESIUM 2020-08-17 14:06:00 Maria [facility] PHOSPHORUS 2020-08-17 14:06:00 Nelson [facility] CBC W/PLT COUNT & AUTO 2020-08-17 14:06:00 Hank Handy [facility] POCT-ACT 2020-08-17 12:33:00 Rod [facility] CALCIUM, IONIZED 2020-08-17 12:30:03 Maria T [facility] BLOOD GAS, ARTERIAL 2020-08-17 12:30:03 Maria T [facility] SODIUM NA-STAT LAB 2020-08-17 12:30:03 [facility] POTASSIUM-STAT LAB 2020-08-17 12:30:03 [facility] GLUCOSE-STAT LAB 2020-08-17 12:30:03 [facility] HGB/HCT (H&H) - STAT LAB 2020-08-17 12:30:03 Maria T [facility] POCT-ACT 2020-08-17 11:42:00 Rod [facility] BLOOD GAS, ARTERIAL 2020-08-17 11:40:31 Con [facility] SODIUM NA-STAT LAB 2020-08-17 11:40:31 Con [facility] POTASSIUM-STAT LAB 2020-08-17 11:40:31 Con [facility] GLUCOSE-STAT LAB 2020-08-17 11:40:31 Con [facility] HGB/HCT (H&H) - STAT LAB 2020-08-17 11:40:31 Con [facility] POCT-ACT 2020-08-17 11:12:00 Rod [facility] ANESTHESIA MATT 2020-08-17 11:05:16 [facility] BLOOD GAS, VENOUS 2020-08-17 10:41:51 Jen Nelson [facility] BLOOD GAS, ARTERIAL 2020-08-17 10:41:11 Con [facility] SODIUM NA-STAT LAB 2020-08-17 10:41:11 Con [facility] POTASSIUM-STAT LAB 2020-08-17 10:41:11 Con [facility] GLUCOSE-STAT LAB 2020-08-17 10:41:11 Con [facility] HGB/HCT (H&H) - STAT LAB 2020-08-17 10:41:11 Con [facility] POCT-ACT 2020-08-17 10:41:00 Rod [facility] POCT-ACT 2020-08-17 09:44:00 Rod [facility] BLOOD GAS, ARTERIAL 2020-08-17 08:17:23 [facility] 2020-08-17 08:17:23 [facility] POT[facility]SIUM-STAT LAB 2020-08-17 08:17:23 Maria T [facility] GLUCOSE-STAT LAB 2020-08-17 08:17:23 Maria T [facility] HGB/HCT (H&H) - STAT LAB 2020-08-17 08:17:23 Maria T [facility] BYPASS,AORTO CORONARY 2020-08-17 07:07:00 Con [facility] CAREY/SVG [facility] ENDOSCOPIC HARVEST,VEIN 2020-08-17 07:07:00 Con [facility] MATT 2020-08-17 07:07:00 Con [facility] ECG 12-LEAD 2020-08-16 23:36:16 Unknown, Hl7 Doctor [facility] HC CAROTID DOPPLER TRINITY 2020-08-16 23:26:00 Hank Handy [facility] HC VENOUS DOPPLER EXT 2020-08-16 22:49:00 Hank Handy [facility] MAGNESIUM 2020-08-16 21:31:00 Mariana [facility] COMPREHENSIVE METABOLIC 2020-08-16 21:31:00 Mariana [facility] HEMOGLOBIN A1C 2020-08-16 21:31:00 Mariana [facility] LIPID PANEL 2020-08-16 21:31:00 Mariana [facility] PROTHROMBIN TIME/INR 2020-08-16 21:31:00 Mariana [facility] APTT 2020-08-16 21:31:00 Mariana [facility] ABORH, MANUAL 2020-08-16 21:31:00 Zahira Nair [facility] CBC W/PLT COUNT & AUTO 2020-08-16 21:31:00 Mariana [facility] DIFFERENTIAL [facility] TYPE AND SCREEN, 2020-08-16 21:12:00 Mariana [facility] AUTOMATED [facility] 2D ECHO W/ DOPPLER 2020-08-15 16:50:43 Dario Rodriguez [facility] (CW/PW/COLOR) [facility] SARS-COV2/RT-PCR ([facility] & 2020-08-14 04:50:00 Jana Orta [facility] - REF LABS) [facility] BASIC METABOLIC PANEL 2020-08-14 04:46:[address] [facility] () [facility] HEPATIC FUNCTION PANEL 2020-08-14 04:46:00 Ha Wander Beyer [facility] MAGNESIUM 2020-08-14 04:46:00 Ha Wander Beyer [facility] PROTHROMBIN TIME/INR 2020-08-14 04:46:00 BonnerWander [facility] CBC W/PLT COUNT & AUTO 2020-08-14 04:46:00 Ha Wander Beyer [facility] CT BRAIN WITHOUT IV 2020-08-14 04:20:00 Radha Janavargas Salas t [facility] - CONTRAST [facility] REPORT OF PROCEDURE - 2020-08-13 00:00:00 Provider, Leena [facility] - ENDOSCOPY SCAN Scanning [facility] Carotid Stent Placement [facility] Tubal Ligation [facility] Foot/toes Surgery [facility] Plan of Care Planned Activity Planned Date Details Comments Source Future Scheduled 2020-06-[address] [facility] - Test 00:00:00 WELLNESS (YEAR 2 or [facility] Center FIRST YEAR if no IPPE) [code = MEDICARE ANNUAL WELLNESS (YEAR 2 or FIRST YEAR if no IPPE)] Future Scheduled 2020-06-08 INFLUENZA VACCINE (#1) [facility] Test 00:00:00 [code = INFLUENZA Medical Ce nter VACCINE (#1)] Future Scheduled 2019-10-[address] [facility] - Test 00:00:00 (12+) [code = [facility] Center DEPRESSION SCREENING (12+)] Future Scheduled 2014 PNEUMOCOCCAL 65+ Y[facility] - Test 00:00:00 (1 of 1 - [facility] Center EUKO66_Flurxhp PCV13) [code = PNEUMOCOCCAL 65+ YRS (1 of 1 - DPND80_Rplylif PCV13)] Future Scheduled [address] - Test 00:00:00 malignant neoplasm of [facility] breast (procedure) [code = 586586652] Future Scheduled [address] [facility] - Test 00:00:00 malignant neoplasm of [facility] colon (procedure) [code = 683667638] Encounters Start End Encounter Admission Attending Care Care Encounter Source Date/Time Date/Time Type Type Clinicians Facility Department ID 2019-05-13 2019-05-13 Roxy [facility] [place] - [id number] M atagor 00:00:00 00:00:00 Chantale Shea MD: [address] [facility], [facility] [address], [place] [address] , Ph. [phone] 2019-04-15 2019-04-15 Roxy [place]ATT [place] - [id number] M atagor 00:00:00 00:00:00 Chantale Shea MD: [address] [facility], [facility] [address], [place] [address] , Ph. [phone] Results Test Description Test Time Test Comments Results Result Comments Source SARS-CoV2/RT-PCR (Asymptomatic ONLY) 2020-08-24 12:40:00 Test Item Value Reference Range Interpretation Comme nts SARS-COV2/RT-PCR (test code = Negative Not Detected, 53691-0) Negative, See external report for linked test SARS-COV-2 PERFORMING LAB [facility] (test code = 83337-0) YAAKOV (test code = YAAKOV) Negative result [...] of the Act. Fact Sheet for Healthcare Providers:https://www.Yvolver/sites/default/files/produ ct/documents/Fact_Sheet_HC_Pr hgjzpis_Lcki_GQLW-AoN-6.pdf Fact Sheet for Healthcare Patients:https://www.Windowfarms/sites/default/files/produc t/documents/Fact_Sheet_Patien tq_Hmzj_OPNQ-MyY-6.pdf Performing Laboratory:[facility], [place] [address] [place], [place] [address]ARS-COV2/RT-PCR ([facility] & REF LABS)2020-08-24 12:40:00 Test Item Value Reference Range Interpretation Comments SARS-COV2/RT-PCR (test Negative Not Detected, Negative, code = 6209638) See external report for linked test SARS-COV-2 PERFORMING LAB [facility] (test code = 7132597) Negative result for this test determines that [...] 564(g) of the Act.Fact Sheet for Healthcare Providers:https://www.TransUnion/sites/default/files/product/documents/Fact_Shee j_PV_Nitifdsjj_Rqur_CKAF-NnP-3.pdfFact Sheet for Healthcare Patients:https://www.TransUnion/sites/default/files/product/ documents/Xjmp_Phduk_Backflte_Gvej_BDIN-XsK-3.pdfPerforming Laboratory:[facility], [place] [address]Orgwv Metabolic Panel 2020-08-24 04:37:00 Test Item Value Reference Range Interpretation Comments Sodium (test code = 138 meq/L 563-154 7246-2) Potassium (test code = 3.8 meq/L 3.5-5.1 2823-3) Chloride (test code = 104 meq/L 98-107 2075-0) CO2 (test code = 26 meq/L 22-29 2028-9) BUN (test code = 9 mg/dL 7-21 3094-0) Creatinine (test code 0.66 mg/dL 0.57-1.25 = 2160-0) Glucose (test code = 110 mg/dL 70-105 H 2345-7) Calcium (test code = 8.9 mg/dL 8.4-10.2 87770-9) EGFR (test code = 107 mL/min/1.73 [place] [address]-4) NOT ACCURATE CREATININE CLEARANCE IN PREDICTING GLOMERULAR FILTRATION RATE . ESTIMATED GFR I S NOT APPLICABLE FOR DIALYSIS PATIENTS. YAAKOV (test code = YAAKOV) Manager Psychiatry ID - EDASI Lab Interpretation Abnormal (test code = 64951-1) [facility] METABOLIC [id number] 04:37:00 Test Item Value Reference Range Interpretation [...] S NOT APPLICABLE FOR DIALYSIS PATIEN TS. Manager Psychiatry ID - EDASICBC with platelet count + automated [id number] 04:04:00 Test Item Value Reference Range Interpretation [...] 450 K/CU MM MPV (test code = 53035-3) 10.1 fL 9.4-12.3 nRBC (test code = [...] 2801) Lab Interpretation (test code = Abnormal 22999-3) [facility] W/PLT COUNT & AUTO [id number] 04:04:00 Test Item Value Reference Range Interpretation [...] (BEAKER) (test code = 2801) BASIC METABOLIC [id number] 10:27:00 Test Item Value Reference Range Interpretation [...] S NOT APPLICABLE FOR DIALYSIS PATIEN TS. 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 METABOLIC [id number] 10:29:00 Test Item Value Reference Range Interpretation [...] S NOT APPLICABLE FOR DIALYSIS PATIEN TS. Manager Psychiatry ID - MARTINA CLactic Acid, [id number] 06:55:00 Test Item Value Reference Range Interpretation Comments Lactate, Art (test code = 1.5 mmol/L 0.5-2.2 2874) YAAKOV (test code = YAAKOV) Manager Psychiatry ID - DB Lab Interpretation (test Normal code = 45658-5) [facility], [id number] 06:55:00 Test Item Value Reference Range Interpretation Comments LACTATE BLOOD ARTERIAL (2) 1.5 mmol/L 0.5-2.2 (BEAKER) (test code = 2874) Manager Psychiatry ID - DBCBC W/PLT COUNT & AUTO [id number] 06:47:00 Test Item Value Reference Range Interpretation [...] PERCENT (BEAKER) (test code = 2801) Calcium, [id number] 06:43:00 Test Item Value Reference Range Interpretation Comments Calcium, Ion (test code = 1994-3) 1.12 mmol/L 1.12-1.27 pH, Blood (test code = 47265-4) 7.41 [facility] HospitalCALCIUM, [id number] 06:43:00 Test Item Value Reference Range Interpretation Comments CALCIUM IONIZED (BEAKER) (test 1.12 mmol/L 1.12-1.27 code = 698) PH, BLOOD (BEAKER) (test code = 7.41 1810) RAD, CHEST, 1 VIEW, NON [id number] 06:22:00while patient is intubated or has chest tubes.Reason for exam:->Status post CV SurgeryShould thisbe performed at the bedside?->Yes [facility] HARESHBLOSSOMADRIANA RUTHERFORD : 1950 Sex: FFINAL REPORT [...] Santosh Grullon MDReport Verified Date/Time: 08/20/2020 06:22:53 [facility] [id number] 15:13:00 Test Item Value Reference Range Interpretation Comments Magnesium (test code = 2.0 mg/dL 1.6-2.6 02742-3) YAAKOV (test code = YAAKOV) Manager Psychiatry ID - [facility] Lab Interpretation (test Normal code = 67085-3) [facility] HospitalPhosphorus2020-11-12 15:13:00 Test Item Value Reference Range Interpretation Comments Phosphorus (test code = 2.2 mg/dL 2.3-4.7 L 2777-1) YAAKOV (test code = YAAKOV) Manager Psychiatry ID - RHAME F Lab Interpretation (test Abnormal code = 67999-0) [facility] HospitalBASIC METABOLIC [id number] 15:13:00 Test Item Value Reference Range Interpretation [...] S NOT APPLICABLE FOR DIALYSIS PATIEN TS. Manager Psychiatry ID Vivian DE SANTIAGO [id number] 15:13:00 Test Item Value Reference Range Interpretation Comments MAGNESIUM (BEAKER) (test code = 2.0 mg/dL 1.6-2.6 627) Manager Psychiatry ID Vivian DE SANTIAGO [id number] 15:13:00 Test Item Value Reference Range Interpretation Comments PHOSPHORUS (BEAKER) (test code = 2.2 mg/dL 2.3-4.7 L 604) Manager Psychiatry BRANDON DE SANTIAGO FLactic acid, [id number] 15:01:00 Test Item Value Reference Range Interpretation Comments Lactate, Venous (test 3.11 mmol/L 0.5-2.2 H Specim en code = 2872) slightly hemolyzed YAAKOV (test code = YAAKOV) Manager Psychiatry ID Vivian DE SANTIAGO F Lab Interpretation Abnormal (test code = 95552-5) [facility], [id number] 15:01:00 Test Item Value Reference Range Interpretation Comments LACTATE BLOOD VENOUS 3.11 mmol/L 0.50-2.20 H Specime n slightly (2) (BEAKER) (test hemolyzed code = 2872) Manager Psychiatry BRANDON DE SANTIAGO FCBC W/PLT COUNT & AUTO [id number] 14:57:00 Test Item Value Reference Range Interpretation [...] 0-1 PERCENT (BEAKER) (test code = 2802) CALCIUM, [id number] 14:51:00 Test Item Value Reference Range Interpretation Comments CALCIUM IONIZED (BEAKER) (test 1.12 mmol/L 1.12-1.27 code = 698) PH, BLOOD (BEAKER) (test code = 7.30 1810) RAD, CHEST, 1 VIEW, NON [id number] 02:59:00while patient is intubated or has chest tubes.Reason for exam:->Status post CV SurgeryShould thisbe performed at the bedside?->Yes [facility] : 1950 Sex: FFINAL REPORT [...] Stable contours.Additional findings: None. Signed: Bhupendra Avila [facility] Verified Date/Time: 08/19/2020 02:59:01 POC ACTIVATED CLOTTING [id number] 06:29:00 Test Item Value Reference Range Interpretation Comments Activated Clotting Time 92 sec : 74 -137 seconds, (test code = 441) Baseline: TESTED AT [facility] [address] [facility], 770 30: Manager Psychiatry/Techni norm ID = [id number] for BHUPENDRA MENDIOLA [facility] HospitalPOCT-[id number] 06:29:00 Test Item Value Reference Range Interpretation Comments ACTIVATED CLOTTING TIME 92 sec : 74 -137 seconds, (BEAKER) (test code = Baseli ne: TESTED AT 441) [address], [facility] 30: Manager Psychiatry/Techni norm ID = [id number] for BHUPENDRA MENDIOLA [id number] 06:29:00 Test Item Value Reference Range Interpretation Comments ACTIVATED CLOTTING TIME 499 sec : 74 -137 seconds, (BEAKER) (test code = Baseli ne: TESTED AT 441) [address], [facility] 30: Manager Psychiatry/Techni norm ID = [id number] for BE BHUPENDRA DOMINGUEZ [id number] 06:29:00 Test Item Value Reference Range Interpretation Comments ACTIVATED CLOTTING TIME 555 sec : 74 -137 seconds, (BEAKER) (test code = Baseli ne: TESTED AT 441) [address], [facility] 30: Manager Psychiatry/Techni norm ID = [id number] for BHUPENDRA MENDIOLA [id number] 06:29:00 Test Item Value Reference Range Interpretation Comments ACTIVATED CLOTTING TIME 439 sec : 74 -137 seconds, (BEAKER) (test code = Baseli ne: TESTED AT 441) [address], [facility] 30: Manager Psychiatry/Techni norm ID = [id number] for BHUPENDRA MENDIOLA [id number] 06:29:00 Test Item Value Reference Range Interpretation Comments ACTIVATED CLOTTING TIME 472 sec : 74 -137 seconds, (BEAKER) (test code = Baseli ne: TESTED AT 441) [address], [facility] 30: Manager Psychiatry/Techni norm ID = [id number] for BHUPENDRA MENDIOLA RAD, CHEST, 1 VIEW, NON [id number] 05:19:00while patient is intubated or has chest tubes.Reason for exam:->Status post CV SurgeryShould thisbe performed at the bedside?->Yes [facility] : 1950 Sex: FFINAL REPORT [...] [place] MDReport Verified Date/Time: 08/18/202005:19:20 C METABOLIC [id number] 05:06:00 Test Item Value Reference Range Interpretation [...] S NOT APPLICABLE FOR DIALYSIS PATIEN TS. Manager Psychiatry ID - [id number] 05:06:00 Test Item Value Reference Range Interpretation Comments MAGNESIUM (BEAKER) (test code = 2.3 mg/dL 1.6-2.6 627) Manager Psychiatry ID - [id number] 05:06:00 Test Item Value Reference Range Interpretation Comments PHOSPHORUS (BEAKER) (test code = 4.1 mg/dL 2.3-4.7 604) Manager Psychiatry ID - EDASILACTIC ACID, [id number] 04:31:00 Test Item Value Reference Range Interpretation Comments LACTATE BLOOD 2.4 mmol/L 0.5-2.2 H Specimen sligh tly ARTERIAL (2) (BEAKER) hemoly zed (test code = 2874) Manager Psychiatry ID - BSCBC W/PLT COUNT & AUTO [id number] 04:27:00 Test Item Value Reference Range Interpretation [...] (BEAKER) (test code = 2801) Blood gas, [id number] 04:15:00 Test Item Value Reference Range Interpretation [...] 36.9 8310-5) FIO2 (test code = 1819) [address] [place], [place] [address]CALCIUM, [id number] 04:15:00 Test Item Value Reference Range Interpretation Comments CALCIUM IONIZED (BEAKER) (test 1.08 mmol/L 1.12-1.27 L code = 698) PH, BLOOD (BEAKER) (test code = 7.42 1810) BLOOD GAS, [id number] 04:15:00 Test Item Value Reference Range Interpretation [...] (BEAKER) (test code = 1819) 32.0 POC-Glucose [id number] 22:46:00 Test Item Value Reference Range Interpretation Comments POC-Glucose Meter (test 123 mg/dL 70-110 H : TE STED AT [facility] code = 1538) [address] [facility], 770 30: Manager Psychiatry/Techni norm ID = [id number] for AYAAN BOWMAN IA Lab Interpretation (test Abnormal code = 96056-5) [facility] HospitalPOCT-GLUCOSE [id number] 22:46:00 Test Item Value Reference Range Interpretation Comments POC-GLUCOSE METER 123 mg/dL 70-110 H : TESTED A T [facility] 6720 (BEAKER) (test code = [facility], 1538) [address]: Manager Psychiatry/Techni norm ID = [id number] for DIANE MCCOLLUM BASIC METABOLIC [id number] 20:41:00 Test Item Value Reference Range Interpretation [...] S NOT APPLICABLE FOR DIALYSIS PATIEN TS. Manager Psychiatry ID - [id number] 20:41:00 Test Item Value Reference Range Interpretation Comments MAGNESIUM (BEAKER) (test code = 1.9 mg/dL 1.6-2.6 627) Manager Psychiatry ID - BSLACTIC ACID, [id number] 20:37:00 Test Item Value Reference Range Interpretation Comments LACTATE BLOOD ARTERIAL (2) 1.2 mmol/L 0.5-2.2 (BEAKER) (test code = 2874) Manager Psychiatry ID - BSCBC W/PLT COUNT & AUTO [id number] 20:28:00 Test Item Value Reference Range Interpretation [...] (BEAKER) (test code = 2801) BLOOD GAS, [id number] 20:25:00 Test Item Value Reference Range Interpretation [...] (test code = 1819) 28.0 BLOOD GAS, [id number] 19:28:00 Test Item Value Reference Range Interpretation [...] (BEAKER) (test code = 1819) 40.0 POCT-GLUCOSE [id number] 18:18:00 Test Item Value Reference Range Interpretation Comments POC-GLUCOSE METER 123 mg/dL 70-110 H : TESTED A T [facility] 6720 (BEAKER) (test code [facility], = 1538) [address]: Manager Psychiatry/Techni norm ID = [id number] for RAY TO, CHRISTIMARIE POCT-GLUCOSE [id number] 17:31:00 Test Item Value Reference Range Interpretation Comments POC-GLUCOSE METER 118 mg/dL 70-110 H : TESTED A T [facility] 6720 (BEAKER) (test code [facility], = 1538) [address]: Manager Psychiatry/Techni norm ID = [id number] for RAY TO, CHRISTIMARIE POCT-GLUCOSE [id number] 16:22:00 Test Item Value Reference Range Interpretation Comments POC-GLUCOSE METER 103 mg/dL 70-110 : TESTED A T [facility] 6720 (BEAKER) (test code [facility], = 1538) [address]: Manager Psychiatry/Techni norm ID = [id number] for RAY TO, CHRISTIMARIE [id number] 15:41:00 Test Item Value Reference Range Interpretation Comments PHOSPHORUS (BEAKER) 2.7 mg/dL 2.3-4.7 Specimen slightly (test code = 604) hemolyzed Manager Psychiatry ID - BSPOCT-GLUCOSE [id number] 15:38:00 Test Item Value Reference Range Interpretation Comments POC-GLUCOSE METER 106 mg/dL 70-110 : TESTED A T [facility] 6720 (BEAKER) (test code [facility], = 1538) [address]: Manager Psychiatry/Techni norm ID = [id number] for RAY TO, CHRISTIMARIE CBC W/PLT COUNT & AUTO [id number] 14:47:00 Test Item Value Reference Range Interpretation [...] (BEAKER) (test code = 2801) BASIC METABOLIC [id number] 14:38:00 Test Item Value Reference Range Interpretation [...] S NOT APPLICABLE FOR DIALYSIS PATIEN TS. Manager Psychiatry ID Vivian DE SANTIAGO [id number] 14:36:00 Test Item Value Reference Range Interpretation Comments MAGNESIUM (BEAKER) 1.5 mg/dL 1.6-2.6 L Specimen slightly (test code = 627) hemolyzed Manager Psychiatry BRANDON DE SANTIAGO FLACTIC ACID, [id number] 14:33:00 Test Item Value Reference Range Interpretation Comments LACTATE BLOOD 1.7 mmol/L 0.5-2.2 Specimen sligh tly ARTERIAL (2) (BEAKER) hemoly zed (test code = 2874) Manager Psychiatry ID Vivian DE SANTIAGO FBLOOD GAS, [id number] 14:22:00 Test Item Value Reference Range Interpretation [...] (test code = 1819) 60.0 Oxygen saturation, [id number] 14:16:00 Test Item Value Reference Range Interpretation Comments O2 Saturation (Measured) (test code = 66.4 % 75199-8) [facility] HospitalOXYGEN SATURATION, [id number] 14:16:00 Test Item Value Reference Range Interpretation Comments O2 SATURATION (MEASURED) (BEAKER) 66.4 % (test code = 1455) RAD, CHEST, 1 VIEW, NON [id number] 14:16:00Reason for exam:->Status post CV Surgery post op day 0Should this be performed at the bedside?->Yes [facility] : 1950 Sex: FFINAL REPORT [...] MDReport Verified Date/Time: 08/17/2020 14:16:32 Reading Location: [facility] Radiology Reading Room Electrocardiogram, 12-lead 2020-08-17 13:48:35Interface, External Ris In - 08/17/2020 1:48 PM CSTVentricular Rate 83 BPMAtrial Rate 83 BPMP-R Interval 202 msQRS Duration 80 msQ-T Interval 412 msQTC Calculation(Bazett) 484 msP [place] 63 degreesR [place] -30 degreesT [place] 30 degreesNormal sinus rhythmPossible Left atrial enlargementLeft axis deviationNonspecific T wave abnormalityProlonged QTAbnormal ECGNo previous ECGs availableConfirmed by MD SANDRINE, SHAWN ([id number]) on 08/17/2020 1:48:32 PM [facility] HospitalHGB/HCT (H&H)-Stat [id number] 12:38:00 Test Item Value Reference Range Interpretation Comments Hemoglobin (test code = 786-4) 8.4 12.0- 15.0 GM/DL L Hematocrit (test code = 4544-3) 25.0 % 36-45 L Lab Interpretation (test code = Abnormal 97274-7) [facility] HospitalGlucose-Stat [id number] 12:38:00 Test Item Value Reference Range Interpretation Comments Glucose (test code = 2345-7) 206 mg/dL 70-110 H Lab Interpretation (test code = Abnormal 11813-6) [facility] [id number] 12:38:00 Test Item Value Reference Range Interpretation Comments Sodium (test code = 2951-2) 133 meq/L 136-145 L Lab Interpretation (test code = Abnormal 42915-1) [facility] HospitalPotassium-Stat [id number] 12:38:00 Test Item Value Reference Range Interpretation Comments Potassium (test code = 2823-3) 5.0 meq/L 3.6-5.5 Lab Interpretation (test code = Normal 99935-0) [facility] HospitalPOTASSIUM-STAT [id number] 12:38:00 Test Item Value Reference Range Interpretation Comments POTASSIUM (BEAKER) (test code = 5.0 meq/L 3.6-5.5 379) BLOOD GAS, [id number] 12:38:00 Test Item Value Reference Range Interpretation [...] (BEAKER) (test code = 1819) 60.0 GLUCOSE-STAT [id number] 12:38:00 Test Item Value Reference Range Interpretation Comments GLUCOSE RANDOM (BEAKER) (test code 206 mg/dL 70-110 H = 652) CALCIUM, [id number] 12:38:00 Test Item Value Reference Range Interpretation Comments CALCIUM IONIZED (BEAKER) (test 1.11 mmol/L 1.12-1.27 L code = 698) PH, BLOOD (BEAKER) (test code = 7.41 1810) SODIUM NA-STAT [id number] 12:38:00 Test Item Value Reference Range Interpretation Comments SODIUM (BEAKER) (test code = 381) 133 meq/L 136-145 L HGB/HCT (H&H) - STAT [id number] 12:38:00 Test Item Value Reference Range Interpretation Comments HEMOGLOBIN (BEAKER) (test code = 8.4 GM/DL 12.0-15.0 L 410) HEMATOCRIT (BEAKER) (test code = 25.0 % 36.0-45.0 L 411) POTASSIUM-STAT [id number] 11:52:00 Test Item Value Reference Range Interpretation Comments POTASSIUM (BEAKER) (test code = 6.2 meq/L 3.6-5.5 HH 379) BLOOD GAS, [id number] 11:51:00 Test Item Value Reference Range Interpretation [...] (test code = 1819) 65.0 SODIUM NA-STAT [id number] 11:51:00 Test Item Value Reference Range Interpretation Comments SODIUM (BEAKER) (test code = 381) 132 meq/L 136-145 L GLUCOSE-STAT [id number] 11:51:00 Test Item Value Reference Range Interpretation Comments GLUCOSE RANDOM (BEAKER) (test code 238 mg/dL 70-110 H = 652) HGB/HCT (H&H) - STAT [id number] 11:51:00 Test Item Value Reference Range Interpretation Comments HEMOGLOBIN (BEAKER) (test code = 7.8 GM/DL 12.0-15.0 L 410) HEMATOCRIT (BEAKER) (test code = 23.0 % 36.0-45.0 L 411) [id number] 11:05:16Seema Live MD 08/17/2020 12:34 PMTEE Date: [...] communicated to surgical team. Post Intervention Summary: [facility]Bl[facility] gas, [id number] 10:48:00 Test Item Value Reference Range Interpretation Comments pH, Aftab (test code = 2746-6) 7.35 7.32-7.42 pCO2, Aftab (test code = 755) 44 41- 51 mm Hg pO2, Aftab (test code = 2705-2) 44 25- 40 mm Hg H O2 Sat, Aftab (test code = 2711-0) 84.4 % 40-70 H HCO3, Aftab (test code = 18492-4) 25 mmol/L 21-29 Base Excess, Aftab (test code = -1.9 mmol/L -2-3 1927-3) Patient Temperature (test code = 34.0 8310-5) FIO2 (test code = 1819) 60 Lab Interpretation (test code = Abnormal 50714-6) [facility] HospitalBLOOD GAS, [id number] 10:48:00 Test Item Value Reference Range Interpretation [...] (BEAKER) (test code = 1819) 60.0 POTASSIUM-STAT [id number] 10:48:00 Test Item Value Reference Range Interpretation Comments POTASSIUM (BEAKER) (test code = 5.4 meq/L 3.6-5.5 379) BLOOD GAS, [id number] 10:48:00 Test Item Value Reference Range Interpretation [...] (test code = 1819) 60.0 SODIUM NA-STAT [id number] 10:48:00 Test Item Value Reference Range Interpretation Comments SODIUM (BEAKER) (test code = 381) 131 meq/L 136-145 L GLUCOSE-STAT [id number] 10:48:00 Test Item Value Reference Range Interpretation Comments GLUCOSE RANDOM (BEAKER) (test code 208 mg/dL 70-110 H = 652) HGB/HCT (H&H) - STAT [id number] 10:48:00 Test Item Value Reference Range Interpretation Comments HEMOGLOBIN (BEAKER) (test code = 7.7 GM/DL 12.0-15.0 L 410) HEMATOCRIT (BEAKER) (test code = 23.0 % 36.0-45.0 L 411) BLOOD GAS, [id number] 08:25:00 Test Item Value Reference Range Interpretation [...] (BEAKER) (test code = 1819) 90.0 GLUCOSE-STAT [id number] 08:25:00 Test Item Value Reference Range Interpretation Comments GLUCOSE RANDOM (BEAKER) (test code 127 mg/dL 70-110 H = 652) SODIUM NA-STAT [id number] 08:24:00 Test Item Value Reference Range Interpretation Comments SODIUM (BEAKER) (test code = 381) 136 meq/L 136-145 POTASSIUM-STAT [id number] 08:24:00 Test Item Value Reference Range Interpretation Comments POTASSIUM (BEAKER) (test code = 4.3 meq/L 3.6-5.5 379) HGB/HCT (H&H) - STAT [id number] 08:24:00 Test Item Value Reference Range Interpretation Comments HEMOGLOBIN (BEAKER) (test code = 12.6 GM/DL 12.0-15.0 410) HEMATOCRIT (BEAKER) (test code = 37.0 % 36.0-45.0 411) Carotid doppler [id number] 07:58:50[facility] MKCKESSON CPACSRight Impression1. There is [...] of Study 08/16/2020 Age 69 Visit Number [id number] Gender Female Accession Number [id number] Date of 1950 Referring Johnny Gama Room Number SCPR Physician MD Rod Area Supervisor Daniel Duran Interpreting Physician DELPHINE Hernandez ProcedureType of Study: Cerebral: Carotid, CAROTID DOPPLER, [...] the left side. - Additional Measurements:ICAPSV/CCAPSV 1.3.ICAEDV/CCAEDV 1.77.[facility] Vein Mapping Legs [id number] 07:58:11Ejection FractionSLEH ECHO HEARTLAB MKCKESSON CPACSRight Impression1. There [...] of Study 08/16/2020 Age 69 Visit Number [id number] Gender Female Accession Number [id number] Date of 1950 Referring Johnny Gama Room Number SCPR Physician MD Rod Area Supervisor aDniel Duran Interpreting Rakel Araujo, Physician ProcedureType of Study: Veins: Lower Extremity [...] !0.2 ! ! + + + + +[facility] HospitalHemoglobin [id number] 22:12:00 Test Item Value Reference Range Interpretation Comments Hemoglobin A1C (test code = 4548-4) 5.8 % 4.3-6.1 Lab Interpretation (test code = Normal 60912-1) [facility] HospitalHEMOGLOBIN [id number] 22:12:00 Test Item Value Reference Range Interpretation Comments HEMOGLOBIN A1C (BEAKER) (test code = 5.8 % 4.3-6.1 368) jacob [id number] 22:09:00 Test Item Value Reference Range Interpretation Comments ABO Grouping (test code = 2588) A Rh Factor (test code = 2589) POS [facility] HospitalComprehensive metabolic [id number] 22:02:00 Test Item Value Reference Range Interpretation Comments Protein, Total (test 7.0 6.0- 8.3 gm/dL Speci men slightly code = 2885-2) hemolyzed Albumin (test code = 3.8 g/dL 3.5-5 Specime n slightly 91731-4) hemolyzed Alkaline Phosphatase 99 U/L 40-150 (test code = 6768-6) Total Bilirubin (test 0.4 mg/dL 0.2-1.2 Specim en slightly code = 1974-2) hemolyzed Sodium (test code = 137 meq/L 362-281 3784-2) Potassium (test code = 4.4 meq/L 3.5-5.1 Speci men slightly 2823-3) hemolyzed Chloride (test code = 101 meq/L 98-107 2074-0) CO2 (test code = 25 meq/L -29 2027-9) BUN (test code = 22 mg/dL 7-21 H 3094-0) Creatinine (test code 0.97 mg/dL 0.57-1.25 Specim en slightly = 216-0) hemolyzed Glucose (test code = 134 mg/dL 70-105 H 2345-7) Calcium (test code = 9.8 mg/dL 8.4-10.2 97884-2) AST (test code = 40 U/L 5-34 H Specimen sl ightly 1920-8) hemolyzed ALT (test code = 33 U/L 6-55 Specimen sl ightly 1742-6) hemolyzed EGFR (test code = 69 mL/min/1.[place] [address]-4) NOT ACCURATE CREATININE CLEARANCE IN PREDICTING GLOMERULAR FILTRATION RATE . ESTIMATED GFR I S NOT APPLICABLE FOR DIALYSIS PATIENTS. YAAKOV (test code = YAAKOV) Manager Psychiatry BRANDON Becker Lab Interpretation Abnormal (test code = 81343-5) [facility] HospitalLipid [id number] 22:02:00 Test Item Value Reference Range Interpretation Comments Triglycerides (test 91 mg/dL Specimen code = 2571-8) slightly hemolyzed Cholesterol (test 107 mg/dL Specimen code = 2093-3) slightly hemolyzed HDL (test code = 31 mg/dL 5-9) LDL Calculated (test 58 mg/dL code = 03399-9) YAAKOV (test code = Triglyceride YAAKOV) Reference Range: Low Risk <150 Borderline 150-199 High Risk 200-499 Very High Risk >=500 Cholesterol Reference Range: Low Risk <200 Borderline 200-239 High Risk >240 HDL Cholesterol Reference Range: Low Risk >=60 High Risk <40 LDL Cholesterol Reference Range: Optimal <100 Near Optimal 100-129 Borderline 130-159 High 160-189 Very High >=190 Manager Psychiatry BRANDON Becker [facility] HospitalMAGNESIUM2020-11-09 22:02:00 Test Item Value Reference Range Interpretation Comments MAGNESIUM (BEAKER) 1.7 mg/dL 1.6-2.6 Specimen slightly (test code = 627) hemolyzed Manager Psychiatry BRANDON DE SANTIAGO FCOMPREHENSIVE METABOLIC [id number] 22:02:00 Test Item Value Reference Range Interpretation [...] S NOT APPLICABLE FOR DIALYSIS PATIEN TS. Manager Psychiatry ID - RHAME FLIPID [id number] 22:02:00 Test Item Value Reference Range Interpretation [...] Borderline 130-159 High 160-189 Very High >=190 Manager Psychiatry ID - JONNATHAN FType and screen, [id number] 21:59:00 Test Item Value Reference Range Interpretation Comments ABO/RH AUTOMATED (BEAKER) (test A POSITIVE echo code = 2260) Ab Scrn (test code = 890-4) NEGATIVE echo [facility] HospitalaPTT2020-11-09 21:49:00 Test Item Value Reference Range Interpretation Comments PTT (test code = 14128-6) 31.5 22.5- 36.0 seconds Lab Interpretation (test code = Normal 98717-9) [facility] HospitalAPTT2020-11-09 21:49:00 Test Item Value Reference Range Interpretation Comments PARTIAL THROMBOPLASTIN TIME 31.5 seconds 22.5-36.0 (BEAKER) (test code = 760) Prothrombin time/[id number] 21:48:00 Test Item Value Reference Range Interpretation [...] valves. Lab Interpretation Normal (test code = 84436-9) [facility] HospitalPROTHROMBIN TIME/[id number] 21:48:00 Test Item Value Reference Range Interpretation [...] mechanical heart valves.CBC W/PLT COUNT & AUTO [id number] 21:43:00 Test Item Value Reference Range Interpretation [...] of Study 08/15/2020 Gender Female Visit Number [id number] Race Black Room Number 1422 Number Date of 1950 Referring Physician Jennifer Bishop Age 69 year(s) Area Supervisor Sharmila Wakefield Interpreting Jeffrey Melendez, Physician MD Fellow Lauro Stern MD Procedure Type [...] LVOT CO: 3.64 l/min LVOT CI: 1.82 l/min/m^2CCasa [facility] SARS-COV2/RT-PCR ([facility])2020-08-14 20:18:00 Test Item Value Reference Range Interpretation Comments SARS-COV2/RT-PCR (test Negative Not Detected, Negative, code = 4953410) See external report for linked test SARS-COV-2 PERFORMING LAB [facility] (test code = 6163642) Negative result for this test determines that [...] the Bourne SARS-CoV-2 assay.Fact Sheet for Healthcare Providers:https://www.Sribu.bourne/luiz/ UY_QNYT-PfH-8_SBT_Cdzv_Rjtgv_12-167744.pdfFact Sheet for Healthcare Patients:https://www.Sribu.Billaway madiha/luiz/JN_PGTD-WgI-5_Wmojhlz_Hzlk_Yqvpw_KP_20-496070O1.pdfPerforming Laboratory:[facility] [place] [address] Hepatic function [id number] 06:00:00 Test Item Value Reference Range Interpretation Comments Protein, Total (test code 7.0 6.0- 8.3 gm/dL = 2885-2) Albumin (test code = 3.9 g/dL 3.5-5 76412-4) Total Bilirubin (test code 0.4 mg/dL 0.2-1.2 = 1975-2) Bilirubin, Direct (test 0.2 mg/dL 0.1-0.5 code = 1967-7) Alkaline Phosphatase (test 96 U/L 40-150 code = 6768-6) AST (test code = 1920-8) 21 U/L 5-34 ALT (test code = 1742-6) 24 U/L 6-55 YAAKOV (test code = YAAKOV) Manager Psychiatry ID - EDASI Lab Interpretation (test Normal code = 27921-2) [facility] HospitalBASIC METABOLIC [id number] 06:00:00 Test Item Value Reference Range Interpretation [...] S NOT APPLICABLE FOR DIALYSIS PATIEN TS. Manager Psychiatry ID - [id number] 06:00:00 Test Item Value Reference Range Interpretation Comments MAGNESIUM (BEAKER) (test code = 1.7 mg/dL 1.6-2.6 627) Manager Psychiatry ID - EDASIHEPATIC FUNCTION [id number] 06:00:00 Test Item Value Reference Range Interpretation [...] (test code = 24 U/L 6-55 347) Manager Psychiatry ID - EDASIPROTHROMBIN TIME/[id number] 05:25:00 Test Item Value Reference Range Interpretation [...] mechanical heart valves.CBC W/PLT COUNT & AUTO [id number] 05:13:00 Test Item Value Reference Range Interpretation [...] (test code = 2801) CT, BRAIN, WITHOUT [id number] 04:33:00Unlisted Reason for Exam - Click Yes and Enter Reason Below->No [facility] 1950 Sex: FFINAL REPORT [...] recommended for further characterization. Signed: Bhupendra Avila Verified Date/Time: 08/14/2020 04:33:35 [facility] brain without IV hiuclyav6558-10-35 04:33:00 Interface, External Ris In - 08/14/2020 [...] isrecommended for further characterization. Signed: Bhupendra Avila Verified Date/Time: 08/14/2020 04:33:35 [facility]-NBDTGFL6543-36-46 00:00:00Ordered by an unspecified provider.[facility] HospitalThyroid Stimulating Hormone 2019-05-01 22:54:49 Test Item Value Reference Range Interpretation Comments TSH (test code = TSH) 1.940 mIU/mL 0.270-4.200 Comprehensive Metabolic [id number] 22:34:40 Test Item Value Reference Range Interpretation [...] = A/G 1.4 ratio N Ratio) Lipid [id number] 22:34:40 Test Item Value Reference Range Interpretation Comments Cholesterol Total 212 mg/dL 0-200 H RISK OF HE ART (test code = DISEASEPublishe d by Cholesterol Total) [employer] Farhana lyte Optimal Borderl ine [...] LDL/HDL Ratio=L DL Calc/HDL Chol Comprehensive Metabolic [id number] 22:34:40 Test Item Value Reference Range Interpretation [...] National Kidney Foundation, http://nkdep.ni h.gov Comprehensive Metabolic [id number] 22:34:40 Test Item Value Reference Range Interpretation [...] ag e have not been validated by e MDRD study and should be interpreted wit h caution. eGFR R esult Interpretation: eGFR > or = 60 is in the Normal RangeeGF R < 60 may mean kid keena diseaseeGFR < 1 5 may mean kidney failure Rang es recommended by the National Kidney Foundation, http://nkdep.ni h.gov Eeqhmkgmrc3493-49-25 21:47:04 Test Item Value Reference Range Interpretation [...] code = Normal Normal Plt Estimation) Automated [id number] 21:28:33 Test Item Value Reference Range Interpretation Comments Neutro Auto (test code = Neutro 59.6 % 36.0-70.0 Auto) Lymph Auto (test code = Lymph Auto) 29.8 % 12.0-44.0 Redwood Auto (test code = Redwood Auto) 8.2 % 0.0-11.0 Eos, Auto (test code = Eos, Auto) 1.8 % 0.0-7.0 Basophil Auto (test code = Basophil 0.4 % 0.0-2.0 Auto) Neutro Absolute (test code = Neutro 3.1 x10 1.6-7.4 Absolute) Lymph Absolute (test code = Lymph 1.53 x10 .50-4.60 Absolute) Redwood Absolute (test code = Redwood .42 x10 .00-1.20 Absolute) Eos Absolute (test code = Eos 0.09 x10 0.00-0.74 Absolute) Baso Absolute (test code = Baso 0.02 x10 0.00-0.21 Absolute) IG [id number] 21:28:33 Test Item Value Reference Range Interpretation Comments IG (test code = IG) 0.2 % 0.0-5.0 IG Abs (test code = IG Abs) 0 x10 N Complete Blood Count with [id number] 21:28:32 Test Item Value Reference Range Interpretation [...] 11 % N Complete Blood Count with [id number] 21:28:32 Test Item Value Reference Range Interpretation [...] IPF) 11 % N pap, LB + [id number] 00:00:00 Test Item Value Reference Range Interpretation Comments HPV type-detect 3.0 by next gen not detected sequencing (reflex to HPV-16 risk assessment status) (test code = HPV type-detect 3.0 by next gen sequencing (reflex to HPV-16 risk assessment status)) General categories normal [interpretation] of Cervical or vaginal smear or scraping by Cyto stain (test code = 39464-9) [facility] in [id number] 00:00:00 Test Item Value Reference Range Interpretation [...] code = pseudomonas aeruginosa by real-time PCR) [facility] (dipstick) panel - [id number] 10:21:00 Test Item Value Reference Range Interpretation Comments Leukocytes (test code = Leukocytes) Trace Nitrite (test code = Nitrite) negative Urobilinogen (test code = 1 Urobilinogen) Protein (test code = Protein) 30 pH (test code = pH) 5.5 Blood (test code = Blood) Negative Specific [place] (test code = 1.030 Specific [place]) Ketone (test code = Ketone) Negative Bilirubin (test code = Bilirubin) Negative Glucose (test code = Glucose) Negative Appearance (test code = Appearance) Clear Color (test code = Color) Yellow [facility] (dipstick) panel - [id number] 10:21:00 Test Item Value Reference Range Interpretation Comments Leukocytes (test code = Leukocytes) Trace Nitrite (test code = Nitrite) negative Urobilinogen (test code = 1 Urobilinogen) Protein (test code = Protein) 30 pH (test code = pH) 5.5 Blood (test code = Blood) Negative Specific [place] (test code = 1.030 Specific [place]) Ketone (test code = Ketone) Negative Bilirubin (test code = Bilirubin) Negative Glucose (test code = Glucose) Negative Appearance (test code = Appearance) Clear Color (test code = Color) Yellow [facility] [id number] 09:00:00 Test Item Value Reference Range Interpretation Comments Surgical pathology see separate pathology study (test code = report. 28589-4) [facility] [id number] 12:33:00 Test Item Value Reference Range Interpretation Comments POC-GLUCOSE METER 131 mg/dL 70-110 H TESTED AT [address] (test code [address] [facility] [place] = 1538) [address] URINE [id number] 07:56:00 Test Item Value Reference Range Interpretation Comments CULTURE ([facility]) (test ESCHERICHIA COLI A 2 0-29,000 [...] = 47) <10,000 col/mL skin floraHEPATIC FUNCTION [id number] 06:05:00 Test Item Value Reference Range Interpretation [...] (test code = 36 U/L 5-50 347) [id number] 05:47:00 Test Item Value Reference Range Interpretation [...] for patients with mechanical heart valves.BASIC METABOLIC [id number] 05:46:00 Test Item Value Reference Range Interpretation [...] S NOT APPLICABLE FOR DIALYSIS PATIEN TS. [id number] 05:43:00 Test Item Value Reference Range Interpretation Comments PHOSPHORUS (BEAKER) (test code = 2.6 mg/dL 2.5-4.5 604) [id number] 05:38:00 Test Item Value Reference Range Interpretation Comments MAGNESIUM (BEAKER) (test code = 2.0 mg/dL 1.5-3.0 627) CBC W/PLT COUNT & AUTO [id number] 05:30:00 Test Item Value Reference Range Interpretation [...] PERCENT (BEAKER) (test code = 2801) CALCIUM, [id number] 05:06:00 Test Item Value Reference Range Interpretation Comments CALCIUM IONIZED (BEAKER) (test 1.18 mmol/L 1.12-1.27 code = 698) PH, BLOOD (BEAKER) (test code = 7.45 1810) [id number] 05:21:00 Test Item Value Reference Range Interpretation Comments PHOSPHORUS (BEAKER) (test code = 1.8 mg/dL 2.5-4.5 L 604) CALCIUM, [id number] 05:20:00 Test Item Value Reference Range Interpretation Comments CALCIUM IONIZED (BEAKER) (test 0.92 mmol/L 1.12-1.27 L code = 698) PH, BLOOD (BEAKER) (test code = 7.42 1810) BASIC METABOLIC [id number] 05:18:00 Test Item Value Reference Range Interpretation [...] APPLICABLE FOR DIALYSIS PATIEN TS. HEPATIC FUNCTION [id number] 05:16:00 Test Item Value Reference Range Interpretation [...] (test code = 28 U/L 5-50 347) [id number] 05:09:00 Test Item Value Reference Range Interpretation [...] is 2.5-3.5 for patients with mechanical heart valves.[id number] 05:07:00 Test Item Value Reference Range Interpretation Comments MAGNESIUM (BEAKER) (test code = 1.2 mg/dL 1.5-3.0 L 627) TROPONIN [id number] 15:48:00 Test Item Value Reference Range Interpretation [...] acidosis, acute neurological disease, and persistent tachyarrhythmia.HEMOGLOBIN [id number] 10:08:00 Test Item Value Reference Range Interpretation Comments HEMOGLOBIN A1C (MILTON) (test code = 6.1 % 4.3-6.1 368) CT, CHEST WITH IV CONTRAST- PE TEST [id number] 09:48:00FINAL REPORT CT of the chest, pulmonary [...] Finch Verified Date/Time: 12/11/2018 09:48:10 Reading Location: [facility] Ortho Consult Reading Room RAD, CHEST, 1 VIEW, NON DEPT 2018-12-11 09:10:00Reason for exam:->PULM EDEMAShould this be performed at the bedside?->YesFINAL REPORT Clinical History: PULM EDEMA Comparison Study: None Findings: The heart and lungs are within normal limits. The pleural spaces are clear. No significant bony or soft tissue abnormalities are seen. Impression: No active cardiopulmonary disease. Signed: Tico Amezcuaeport Verified Date/Time: 12/11/2018 09:10:32 Reading Location: [facility] Radiology Reading Room COMPREHENSIVE METABOLIC PANEL [...] NOT APPLICABLE FOR DIALYSIS PATIEN TS. TROPONIN [id number] 07:24:00 Test Item Value Reference Range Interpretation [...] acidosis, acute neurological disease, and persistent tachyarrhythmia.LIPID [id number] 07:23:00 Test Item Value Reference Range Interpretation [...] 100-129 Borderline 130-159 High 160-189 Very High >=[id number] 07:15:00 Test Item Value Reference Range Interpretation Comments MAGNESIUM (BEAKER) (test code = 2.0 mg/dL 1.5-3.0 627) CBC W/PLT COUNT & AUTO [id number] 07:00:00 Test Item Value Reference Range Interpretation [...] % 0-0 PERCENT (BEAKER) (test code = 1191)
[2020-10-10] MEDS ORDERED: NA CHLORIDE 0.9% 250 ML ONE (16:42)
[2020-10-10 16:49] LABS: Absolute Lymphocytes (CBC) 1.2 K/uL (0.7-4.9); Basophils % 0.7 % (0-1.3); Hematocrit 39.6 % (36.0-45.0); Lymphocytes % 14.5 % (15.3-44.8); MPV 9.8 fL (7.6-11.3); RBC Red Blood Cell Count 4.66 M/uL (3.86-4.86)
[2020-10-10] MEDS ORDERED: ONDANSETRON 4 MG/2 ML VIAL ONE ×2 (16:55→20:24)
[2020-10-10] MEDS ORDERED: FENTANYL CITR 100 MCG/2 ML ONE (16:55)
[2020-10-10 17:11] LABS: ALT/SGPT 28 U/L (12-78); Alkaline Phosphatase 149 U/L (45-117); BUN Blood Urea Nitrogen 20 mg/dL (7-18); Bicarbonate 28 mmol/L (21-32); Bilirubin Direct < 0.1 mg/dL (0-0.2); Bilirubin Total 0.2 mg/dL (0.2-1.0); Glucose Level 111 mg/dL (74-106); Lipase 61 U/L (73-393); Protein, Total 8.7 g/dL (6.4-8.2); Sodium Level 137 mmol/L (136-145)
--- NOTE | 2020-10-10 17:39 | RAD REPORT ---
EXAM DESCRIPTION: RAD - Abdomen 1 View (KUB) - 10/10/2020 5:19 pm CLINICAL HISTORY: CONSTIPATION Pain COMPARISON: No comparisons FINDINGS: The bowel gas pattern is non-obstructive. No evidence of free air or pneumatosis. Probable calcified fibroid projects over the sacrum. No significant bony findings. There is significant fecal impaction noted in the rectum. IMPRESSION: Significant fecal impaction in the rectum with colonic fecal retention.
[2020-10-10 18:01] LABS: AST/SGOT 28 U/L (15-37); Potassium 3.9 mmol/L (3.5-5.1)
[2020-10-10] MEDS ORDERED: LACTULOSE 20 GM/30 ML UCUP ONE (18:04)
[2020-10-10] MEDS ORDERED: BISACODYL 10 MG RECTAL SUPP ONE (18:04)
--- NOTE | 2020-10-10 22:57 | EDPHYS ---
Physician Documentation [facility] Name: Cole Cadena Age: 69 yrs Sex: Female : 1950 Arrival Date: 10/10/2020 Time: 12:17 Bed 5 Private MD: Fabian Nichols HPI: 10/10 16:15 This 69 yrs old Black Female presents to ER via Ambulatory with complaints of cp Constipation. 16:15 The patient presents with abdominal pain constipation. cp 16:15 Onset: The symptoms/episode began/occurred gradually. The symptoms do not radiate. cp Associated signs and symptoms: Pertinent positives: constipation, rectal pain, Pertinent negatives: blood in stools, diarrhea, fever. Patient reports last bowel movement was 1 week ago. Historical: - Allergies: 12:27 Tramadol HCl; ll1 - PMHx: 12:27 Anxiety; Asthma; Depression; GERD; Hypertension; ll1 - PSHx: 12:27 Heart stents; Triple heart bypass; ll1 - Immunization history:: Flu vaccine is not up to date. - Social history:: Smoking status: Patient denies any tobacco usage or history of. ROS: 16:20 Constitutional: Negative for body aches, chills, fever, poor PO intake. cp 16:20 Eyes: Negative for injury, pain, redness, and discharge. cp 16:20 Respiratory: Negative for cough, shortness of breath, wheezing. 16:20 Abdomen/GI: Positive for abdominal pain, nausea, vomiting, constipation, Negative for diarrhea. 16:20 : Negative for urinary symptoms. 16:20 Neuro: Negative for altered mental status, weakness. 16:20 All other systems are negative. Exam: 16:30 Constitutional: The patient appears in no acute distress, alert, awake, non-toxic, well cp developed, well nourished, obese, uncomfortable. 16:30 Head/Face: Normocephalic, atraumatic. cp 16:30 Eyes: Periorbital structures: appear normal, Conjunctiva: normal, no exudate, no injection, Sclera: no appreciated abnormality, Lids and lashes: appear normal, bilaterally. 16:30 ENT: External ear(s): are unremarkable, Nose: is normal, Mouth: Lips: moist, Oral mucosa: moist, Posterior pharynx: Airway: no evidence of obstruction, patent. 16:30 Chest/axilla: Inspection: normal, Palpation: is normal, no crepitus, no tenderness. 16:30 Cardiovascular: Rate: normal, Rhythm: regular. 16:30 Respiratory: the patient does not display signs of respiratory distress, Respirations: normal, no use of accessory muscles, no retractions, labored breathing, is not present, Breath sounds: are clear throughout, no decreased breath sounds. 16:30 Abdomen/GI: Inspection: abdomen appears normal, Bowel sounds: active, all quadrants, Palpation: soft, in all quadrants, mild abdominal tenderness, in all quadrants, rebound tenderness, is not appreciated, involuntary guarding, is not appreciated, Rectal exam: fecal impaction, that is moderate. 16:30 Neuro: Orientation: to person, place \T\ time. Mentation: is normal, Motor: moves all fours. Vital Signs: 12:27 Pulse 107; Resp 18; Temp 98.6; Pulse Ox 96% ; Weight 86.18 kg; Height 5 ft. 2 in. ll1 (157.48 cm); Pain 10/10; 12:29 BP 131 / 108; ll1 16:30 BP 141 / 102; Pulse 98; Resp 20; Pulse Ox 97% on R/A; ph 18:00 BP 136 / 99; Pulse 98; Resp 20; Pulse Ox 97% on R/A; ph 19:37 BP 164 / 113; Pulse 112; Resp 24; Temp 98.7; Pulse Ox 99% ; rr5 22:57 BP 144 / 93; Pulse 112; Resp 20; Pulse Ox 100% ; rr5 12:27 Body Mass Index 34.75 (86.18 kg, 157.48 cm) ll1 MDM: 16:00 Patient medically screened. cp 17:00 Differential diagnosis: bowel obstruction, non-specific abd pain, fecal impaction, cp constipation. 22:55 Data reviewed: vital signs, nurses notes, lab test result(s), radiologic studies, CT cp scan, plain films. 22:55 Counseling: I had a detailed discussion with the patient and/or guardian regarding: the cp historical points, exam findings, and any diagnostic results supporting the discharge/admit diagnosis, lab results, radiology results, the need for outpatient follow up, a family practitioner, to return to the emergency department if symptoms worsen or persist or if there are any questions or concerns that arise at home. Response to treatment: the patient's symptoms have markedly improved after treatment, and as a result, I will discharge patient. 10/10 16:10 Order name: Basic Metabolic Panel; Complete Time: 18:07 cp 10/10 18:07 Interpretation: Normal except: GLUC 111; BUN 20; GFR 87. cp 10/10 16:10 Order name: CBC with Diff; Complete Time: 16:59 cp 10/10 18:07 Interpretation: Normal except: JENNY% 77.5; LYM% 14.5. cp 10/10 16:10 Order name: Hepatic Function; Complete Time: 18:07 cp 10/10 16:10 Order name: Lipase; Complete Time: 18:07 cp 10/10 16:14 Order name: XRAY KUB; Complete Time: 17:43 cp 10/10 16:10 Order name: IV Saline Lock; Complete Time: 17:36 cp 10/10 20:47 Order name: Abdomen EDMS 10/10 16:10 Order name: Labs collected and sent; Complete Time: 17:36 cp 10/10 22:53 Order name: PO challenge; Complete Time: 23:11 cp Administered Medications: 16:40 Drug: NS 0.9% 250 ml Route: IV; Rate: bolus; Site: right antecubital; ph 17:15 Follow up: Response: No adverse reaction; IV Status: Completed infusion; IV Intake: ph 250ml 17:08 Drug: Zofran (Ondansetron) 4 mg Route: IVP; Site: right antecubital; ph 19:23 Follow up: Response: No adverse reaction ph 17:10 Drug: fentaNYL (PF) 25 mcg Route: IVP; Site: right antecubital; ph 17:30 Follow up: Response: No adverse reaction ph 18:06 Drug: Dulcolax Suppository 10 mg Route: FL; ph 19:24 Follow up: Response: No adverse reaction ph 18:06 Drug: Lactulose 40 grams Volume: 45 ml; Route: PO; ph 19:24 Follow up: Response: No adverse reaction ph 20:11 Drug: Zofran (Ondansetron) 4 mg Route: IVP; Site: right forearm; mg2 21:00 Follow up: Response: No adverse reaction; Marked relief of symptoms; No change in rr5 condition Disposition: 10/11 08:43 Co-signature as Attending Physician, Fabian Arriaza MD I agree with the assessment and [facility] plan of care. Disposition: 10/10/20 22:56 Discharged to Home. Impression: Fecal impaction, Constipation, Unspecified abdominal pain. - Condition is Stable. - Discharge Instructions: Abdominal Pain, Adult, Constipation, Adult, Fecal Impaction. - Prescriptions for Miralax 17 gram/dose Oral - take 1 packet by ORAL route once daily As needed dilute powder in 8 ounces of water or juice; 30 packet. Zofran 4 mg Oral Tablet - take 1 tablet by ORAL route every 12 hours As needed; 20 tablet. - Medication Reconciliation Form, Thank You Letter, Antibiotic Education, Prescription Opioid Use form. - Follow up: Private Physician; When: 1 - 2 days; Reason: Recheck today's complaints. - Problem is new. - Symptoms have improved. Signatures: Dispatcher [employer] EDMD Fabian Arriaza MD MD cha Hall, Patricia RN RN Fabian Scott PA PA cp Letty Noriega mw2 Vicente Galindo RN RN mg2 Masoud Banegas RN RN ll1 Robin Fitzpatrick RN rr5 Corrections: (The following items were deleted from the chart) 10/10 20:47 17:48 Abdomen Pelvis W Con+CT.RAD.BRZ ordered. [facility] 23:12 17:00 Misc. Order ordered. cp rr5 23:25 22:56 10/10/2020 22:56 Discharged to Home. Impression: Fecal impaction; Constipation; mw2 Unspecified abdominal pain. Condition is Stable. Forms are Medication Reconciliation Form, Thank You Letter, Antibiotic Education, Prescription Opioid Use. Follow up: Private Physician; When: 1 - 2 days; Reason: Recheck today's complaints. Problem is new. Symptoms have improved. cp
--- NOTE | 2020-10-10 22:57 | ER ---
Nurse's Notes [facility] Name: Cole Cadena Age: 69 yrs Sex: Female : 1950 Arrival Date: 10/10/2020 Time: 12:17 Bed 5 Private MD: Diagnosis: Fecal impaction;Constipation;Unspecified abdominal pain Presentation: 10/10 12:27 Chief complaint: Patient states: Rectal pressure and no BM for 1 week. No fever. No ll1 N/V. Coronavirus screen: Client denies travel out of the [place] in the last 14 days. At this time, the client does not indicate any symptoms associated with coronavirus-19. The client reports previous COVID testing was negative. Ebola Screen: Patient denies travel to an Ebola-affected area in the 21 days before illness onset. Initial Sepsis Screen: Does the patient meet any 2 criteria? HR > 90 bpm. No. Patient's initial sepsis screen is negative. Does the patient have a suspected source of infection? Yes: Acute abdominal pain. Risk Assessment: Do you want to hurt yourself or someone else? Patient reports no desire to harm self or others. Onset of symptoms was October 03, 2020. 12:27 Method Of Arrival: Ambulatory ll1 12:27 Acuity: DYLAN 3 ll1 Historical: - Allergies: 12:27 Tramadol HCl; ll1 - PMHx: 12:27 Anxiety; Asthma; Depression; GERD; Hypertension; ll1 - PSHx: 12:27 Heart stents; Triple heart bypass; ll1 - Immunization history:: Flu vaccine is not up to date. - Social history:: Smoking status: Patient denies any tobacco usage or history of. Screenin:22 Abuse screen: Denies threats or abuse. Denies injuries from another. Nutritional ph screening: No deficits noted. Tuberculosis screening: No symptoms or risk factors identified. Fall Risk None identified. Assessment: 16:45 General: Appears in no apparent distress. uncomfortable, well groomed, Behavior is ph cooperative, appropriate for age, anxious, Denies fever. Pain: Complains of pain in anus and lower abdomen Quality of pain is described as crampy, pressure. Neuro: Level of Consciousness is awake, alert, obeys commands, Oriented to person, place, time, situation. Cardiovascular: Capillary refill < 3 seconds in bilateral fingers Patient's skin is warm and dry. Respiratory: Airway is patent Respiratory effort is even, unlabored, Respiratory pattern is regular, symmetrical. GI: Abdomen is non-distended, Reports lower abdominal pain, constipation, nausea, Patient currently denies vomiting. Derm: Skin is intact, is healthy with good turgor, Skin is pink, warm \T\ dry. Musculoskeletal: Circulation, motion, and sensation intact. Range of motion: intact in all extremities. 18:00 Reassessment: Patient appears in no apparent distress at this time. Patient and/or ph family updated on plan of care and expected duration. Pain level reassessed. Patient is alert, oriented x 3, equal unlabored respirations, skin warm/dry/pink. Pt lying in bed, medications to stimulate BM given PO and MT, awaiting CT scan. 19:37 General: Appears in no apparent distress. uncomfortable, ill, Behavior is cooperative, rr5 appropriate for age, anxious. Pain: Complains of pain in pelvis and anus and groin Quality of pain is described as crampy, pressure. Neuro: Level of Consciousness is awake, alert, obeys commands, Oriented to person, place, time. Cardiovascular: Capillary refill < 3 seconds Patient's skin is warm and dry. Cardiovascular: Capillary refill < 3 seconds Patient's skin is warm and dry. Respiratory: Airway is patent Respiratory effort is even, unlabored, Respiratory pattern is regular, symmetrical, tachypnea. GI: Abdomen is non-distended, obese, Reports lower abdominal pain, constipation, nausea. : No signs and/or symptoms were reported regarding the genitourinary system. EENT: No signs and/or symptoms were reported regarding the EENT system. Derm: Skin temperature is warm. Musculoskeletal: Capillary refill < 3 seconds. 20:30 Reassessment: Patient appears in no apparent distress at this time. patient having BM rr5 on the bed, CT staff informed will call them once she is done. 21:15 Reassessment: Patient appears in no apparent distress at this time. Patient is alert, rr5 oriented x 3, equal unlabored respirations, skin warm/dry/pink. able to pass large stool, patient stated she feels relieved after care done. CT staff aware patient is ready for CT scan. Vital Signs: 12:27 Pulse 107; Resp 18; Temp 98.6; Pulse Ox 96% ; Weight 86.18 kg; Height 5 ft. 2 in. ll1 (157.48 cm); Pain 10/10; 12:29 BP 131 / 108; ll1 16:30 BP 141 / 102; Pulse 98; Resp 20; Pulse Ox 97% on R/A; ph 18:00 BP 136 / 99; Pulse 98; Resp 20; Pulse Ox 97% on R/A; ph 19:37 BP 164 / 113; Pulse 112; Resp 24; Temp 98.7; Pulse Ox 99% ; rr5 22:57 BP 144 / 93; Pulse 112; Resp 20; Pulse Ox 100% ; rr5 12:27 Body Mass Index 34.75 (86.18 kg, 157.48 cm) ll1 ED Course: 12:17 Patient arrived in ED. rg4 12:26 Arm band placed on. ll1 12:29 Triage completed. ll1 15:58 Margie Sweeney RN is Primary Nurse. ph 15:59 Fabian Scott PA is PHCP. cp 15:59 Fabian Arriaza MD is Attending Physician. cp 17:19 XRAY KUB In Process Unspecified. EDMS 19:22 Patient has correct armband on for positive identification. Placed in gown. Bed in low ph position. Call light in reach. Pulse ox on. NIBP on. Door closed. Noise minimized. Warm blanket given. Verbal reassurance given. 19:30 Inserted saline lock: 20 gauge in right antecubital area, using aseptic technique. rr5 ,using aseptic technique. inserted in AM shift. 20:15 Radiology exam delayed due to. mw3 22:07 Abdomen In Process Unspecified. EDMS Administered Medications: 16:40 Drug: NS 0.9% 250 ml Route: IV; Rate: bolus; Site: right antecubital; ph 17:15 Follow up: Response: No adverse reaction; IV Status: Completed infusion; IV Intake: ph 250ml 17:08 Drug: Zofran (Ondansetron) 4 mg Route: IVP; Site: right antecubital; ph 19:23 Follow up: Response: No adverse reaction ph 17:10 Drug: fentaNYL (PF) 25 mcg Route: IVP; Site: right antecubital; ph 17:30 Follow up: Response: No adverse reaction ph 18:06 Drug: Dulcolax Suppository 10 mg Route: MT; ph 19:24 Follow up: Response: No adverse reaction ph 18:06 Drug: Lactulose 40 grams Volume: 45 ml; Route: PO; ph 19:24 Follow up: Response: No adverse reaction ph 20:11 Drug: Zofran (Ondansetron) 4 mg Route: IVP; Site: right forearm; mg2 21:00 Follow up: Response: No adverse reaction; Marked relief of symptoms; No change in rr5 condition Intake: 17:15 IV: 250ml; Total: 250ml. ph Outcome: 22:56 Discharge ordered by . tan 23:25 Patient left the ED. mw2 Signatures: Dispatcher [employer] EDMS Margie Sweeney RN RN ph Fabian Scott PA PA cp Garcia, Rubi 4 Letty Noriega mw2 Vicente Galindo RN RN mg2 Tabatha Bailey mw3 Robin Fitzpatrick RN RN rr5 Masoud Banegas RN RN ll1
[2020-10-10 23:45] VITALS: BP 141/102; O2SAT 97
--- NOTE | 2020-10-11 10:38 | RAD REPORT ---
EXAM DESCRIPTION: CT Abdomen and Pelvis Without Intravenous Contrast CLINICAL HISTORY: The patient is 69 years old and is Female; Abd pain;Constipation TECHNIQUE: Axial computed tomography images of the abdomen and pelvis without intravenous contrast. Sagittal and coronal reformatted images were created and reviewed. This CT exam was performed usi ng one or more of the following dose reduction techniques: automated exposure control, adjustment o f the mA and/or kV according to patient size, and/or use of iterative reconstruction technique. COMPARISON: CT of the abdomen and pelvis February 15, 2016 FINDINGS: LUNG BASES: Unremarkable. No mass. No consolidation. ABDOMEN: LIVER: Homogeneous without focal mass. GALLBLADDER AND BILE DUCTS: The gallbladder is physiologically distended. No calcified gallstone s are seen. PANCREAS: The pancreas is atrophic. No ductal dilation. SPLEEN: Unremarkable. ADRENALS: Unremarkable. No mass. KIDNEYS AND URETERS: No obstructing stones. No hydronephrosis. No perinephric fluid. STOMACH AND BOWEL: The stomach is relatively decompressed. Minimal amount of contrast is present within the stomach. The small bowel is also decompressed. Oral contrast is noted within the distal s mall bowel. Contrast, stool, and air is present throughout the colon to level of the rectum. Minimal stool burden is noted. There is no mucosal thickening or evidence of bowel obstruction. PELVIS: APPENDIX: The appendix is normal in caliber without surrounding inflammation. BLADDER: Unremarkable. No stones. REPRODUCTIVE: Several calcified uterine fibroids are present. The ovaries are not definitively s een. ABDOMEN and PELVIS: INTRAPERITONEAL SPACE: Unremarkable. No free air. No significant fluid collection. BONES/JOINTS: No acute fracture. SOFT TISSUES: The soft tissues are normal. VASCULATURE: Atherosclerosis of the vasculature is present. The vessels are normal in caliber. No abdominal aortic aneurysm. LYMPH NODES: Unremarkable. No enlarged lymph nodes. IMPRESSION: No acute findings on this contrasted CT of the abdomen and pelvis to explain the patient 's symptoms. Electronically signed by: Shantelle Raphael MD 10/10/2020 10:24 PM [employer] Due to temporary technical issues with the PACS/Fluency reporting system, reports are being signed by the in house radiologist without review as a courtesy to ensure prompt reporting. The interpreting r adiologist is fully responsible for the content of the report.
== END 2020-10-10 23:25 | disposition home or self-care (01) ==
LOC: ER 12:13
DX: K56.41 Fecal impaction (principal); I10 Essential (primary) hypertension; Z88.5 Allergy status to narcotic agent
CPT/HCPCS: 85025; 80048; 36415; 80076; 83690; 74176; 74018; 99284; J3010; J7050; J2405 ×2

== ENCOUNTER 2021-10-27 21:50 | Emergency (ER) | payer OTHER ==
--- OUTSIDE RECORDS SUMMARY | 2021-10-27 21:57 | XMS REPORT | Continuity of Care Document ---
:1950 Author Organization [facility] t Address [address] [place] [address] Care Team Providers Name Role Phone EVELINA GOMEZ Primary Care Physician Unavailable PERES, BABAK Attending Clinician Unavailable REMINGTON ONTIVEROS Attending Clinician Unavailable Zeyad_Celia Attending Clinician Unavailable EVELINA GOMEZ Attending Clinician Unavailable BABAK PERES Admitting Clinician Unavailable Zoila Admitting Clinician Unavailable KT ORTA Admitting Clinician Unavailable EVELINA GOMEZ Admitting Clinician Unavailable Payers Payer Name Policy Type Policy Number Effective Date Expiration Date S denidudley AAR/MEDICARE [id number] 2019 COMPLETE 00:00:00 MEDICAID [place] [id number] 2018 00:00:00 [place] B[place] [id number] 2014 Updater 00:00:00 [employer] [place] [id number] 2019 COMMUNITY CARE - 00:00:00 STAR (MEDICAID HMO) [place]ICARE A-[place]: [id number] 2014 Updater - 00:00:00 RHC - FQHC Problems Condition Condition Condition Status Onset Resolution Last Treating Co mments Source Name Details Category Date Date Treatment Clinician Date Essential Essential Problem Active [facility] hypertensi Hypertensi 7-09 da on on 00:00: Medical 00 Group 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 Vital Signs Vital Name Observation Time Observation Value Comments Source WEIGHT 2020-08-24 04:02:00 95.709 kg WEIGHT 2020-08-22 06:04:00 101.606 kg WEIGHT 2020-08-19 05:46:00 93 kg HEIGHT 2020-08-17 04:34:00 157.5 cm WEIGHT 2020-08-17 04:34:00 92.806 kg HEIGHT 2020-08-13 23:00:00 157.5 cm WEIGHT 2020-08-13 23:00:00 100.699 kg HEIGHT 2020-09-09 13:09:00 157.5 cm WEIGHT 2020-09-09 13:09:00 87.998 kg WEIGHT 2020-08-24 04:02:00 95.709 kg WEIGHT 2020-08-22 06:04:00 101.606 kg WEIGHT 2020-08-19 05:46:00 93 kg HEIGHT 2020-08-17 04:34:00 157.5 cm WEIGHT 2020-08-17 04:34:00 92.806 kg HEIGHT 2020-08-13 23:00:00 157.5 cm WEIGHT 2020-08-13 23:00:00 100.699 kg BP Diastolic 2019-05-13 00:00:00 98 mm[Hg] [facility] Height 2019-05-13 00:00:00 62 [in_i] [facility] BMI (Body Mass 2019-05-13 00:00:00 38.6 [facility] BP Systolic 2019-05-13 00:00:00 170 mm[Hg] [facility] Body Weight 2019-05-13 00:00:00 211 [lb_av] [facility] BP Diastolic 2019-04-15 00:00:00 94 mm[Hg] [facility] Height 2019-04-15 00:00:00 62 [in_i] [facility] BMI (Body Mass 2019-04-15 00:00:00 37.9 kg/m2 [facility] BP Systolic 2019-04-15 00:00:00 130 mm[Hg] [facility] Body Weight 2019-04-15 00:00:00 207 [lb_av] [facility] Procedures Procedure Date / Time Performed Performing Clinician Sourc e Carotid Stent [facility] Tubal Ligation [facility] Foot/toes Surgery [facility] Procedure Group Encounters Start End Encounter Admission Attending Care Care Encounter Source Date/Time Date/Time Type Type Clinicians Facility Department ID 2020-08-13 Inpatient UR PERES, [facility] Cardiology [id number] SLE 19:32:00 MARIA ELENA 2020-09-09 2020-09-09 Outpatient [facility], [facility] [id number] SLE 00:00:00 00:00:00 BHUPENDRA 2020-08-25 2020-08-25 Outpatient [facility] [id number] [place] 02:23:00 02:23:00 1118 [facility] 2020-05-11 2020-05-11 Outpatient [facility] [id number] [place] 12:39:00 12:39:00 0821 [facility] 2020-04-22 2020-04-22 Outpatient [facility] [id number] [place] 12:17:00 12:17:00 0716 [facility] 2019-05-13 2019-05-13 [facility] [place] - [id number] M [facility] 00:00:00 00:00:00 Chantale Shea MD: [address] [facility] [place] [address], [place] [address] , Ph. [phone] 2019-04-15 2019-04-15 [facility] [place] - [id number] M [facility] 00:00:00 00:00:00 Chantale Shea MD: [address] [facility] [address], [place] [address] , Ph. [phone] Results Test Description Test Time Test Comments Results Result Comments Source SARS-COV2/RT-PCR ([facility]) 2020-08-24 12:40:00 Test Item Value Reference Range Interpretation Comme nts SARS-COV2/RT-PCR (test code = 2500970) Negative Not Detected, N egative, See external report for linked test SARS-COV-2 PERFORMING LAB (test code = [facility] 5233601) Negative result for this test determines that [...] individuals suspected of COVID-19 by their healthcare provider.This test [...] 564(g) of the Act.Fact Sheet for Healthcare Providers:https://www.Ipsum.Desall/sites/default/files/product/documents/Fact_Shee v_IA_Wypiksnbz_Lqwt_BBOP-SyW-7.pdfFact Sheet for Healthcare Patients:https://www.Ipsum.Desall/sites/default/files/product/ documents/Ocpj_Wswfn_Dstbfeiz_Enxp_CLTG-VpM-6.pdfPerforming Laboratory:[facility].[place], [place] [address]PHDIH METABOLIC PANEL 2020-08-24 04:37:00 Test Item Value Reference Range [...] S NOT APPLICABLE FOR DIALYSIS PATIEN TS. [employer] Grower ID - EDASICBC W/PLT COUNT & AUTO [id number] 04:04:00 Test Item Value Reference Range Interpretation [...] (BEAKER) (test code = 2801) BASIC METABOLIC [id number] 10:27:00 Test Item Value Reference Range Interpretation [...] S NOT APPLICABLE FOR DIALYSIS PATIEN TS. [employer] Special[employer] Grower ID - EDASICBC W/PLT COUNT & AUTO [id number] 10:07:00 Test Item Value Reference Range Interpretation [...] (BEAKER) (test code = 2801) BASIC METABOLIC [id number] 10:29:00 Test Item Value Reference Range Interpretation [...] S NOT APPLICABLE FOR DIALYSIS PATIEN TS. [employer] Special[employer] Grower ID - MARTINA CLACTIC ACID, [id number] 06:55:00 Test Item Value Reference Range Interpretation Comments LACTATE BLOOD ARTERIAL (2) 1.5 mmol/L 0.5-2.2 (BEAKER) (test code = 2874) [employer] Grower ID - DBCBC W/PLT COUNT & AUTO [id number] 06:47:00 Test Item Value Reference Range Interpretation [...] % 0-1 PERCENT (BEAKER) (test code = 2805) CALCIUM, [id number] 06:43:00 Test Item Value Reference Range Interpretation Comments CALCIUM IONIZED (BEAKER) (test 1.12 mmol/L 1.12-1.27 code = 698) PH, BLOOD (BEAKER) (test code = 7.41 1810) RAD, CHEST, 1 VIEW, NON [id number] 06:22:00while patient is intubated or has chest tubes.Reason for exam:->Status post CV SurgeryShould thisbe performed at the bedside?->Yes [facility] : 1950 Sex: FFINAL REPORT Chest one view. Clinical history: Status post CV Surgery Comparison: Chest radiograph 08/19/2020. Technique: A single frontal view of the chest was obtained. Findings:The patient is status post median sternotomy and cardiac surgery.The cardiomediastinal contours are stable. There are diffuse bilateral airspace opacities, mildly decreased. There are small bilateral pleural effusions. There is no pneumothorax. Signed: Santosh Grullon [facility] Verified Date/Time: 08/20/2020 06:22:53 BASIC METABOLIC [id number] 15:13:00 Test Item Value Reference Range Interpretation [...] S NOT APPLICABLE FOR DIALYSIS PATIEN TS. [employer] Grower ID Vivian JONNATHAN [id number] 15:13:00 Test Item Value Reference Range Interpretation Comments MAGNESIUM (BEAKER) (test code = 2.0 mg/dL 1.6-2.6 627) [employer] Special[employer] Grower ID Vivian DE SANTIAGO [id number] 15:13:00 Test Item Value Reference Range Interpretation Comments PHOSPHORUS (BEAKER) (test code = 2.2 mg/dL 2.3-4.7 L 604) [employer]ty Grower ID Vivian DE SANTIAGO FLACTIC ACID, [id number] 15:01:00 Test Item Value Reference Range Interpretation Comments LACTATE BLOOD VENOUS 3.11 mmol/L 0.50-2.20 H Specime n slightly (2) (BEAKER) (test hemolyzed code = 0626) [employer] Grower ID Vivian JONNATHAN FCBC W/PLT COUNT & AUTO [id number] 14:57:00 Test Item Value Reference Range Interpretation [...] 0-1 PERCENT (BEAKER) (test code = 2801) CALCIUM, [id number] 14:51:00 Test Item Value Reference Range Interpretation Comments CALCIUM IONIZED (BEAKER) (test 1.12 mmol/L 1.12-1.27 code = 698) PH, BLOOD (BEAKER) (test code = 7.30 1810) RAD, CHEST, 1 VIEW, NON [id number] 02:59:00while patient is intubated or has chest tubes.Reason for exam:->Status post CV SurgeryShould thisbe performed at the bedside?->Yes [facility] : 1950 Sex: FFINAL REPORT [...] Stable contours.Additional findings: None. Signed: Bhupendra Avila [facility] Verified Date/Time: 08/19/2020 02:59:01 [id number] 06:29:00 Test Item Value Reference Range Interpretation Comments ACTIVATED CLOTTING TIME 92 sec : 74 -137 seconds, (BEAKER) (test code = Baseli ne: TESTED AT 441) [address], [facility] 30: Field H[employer]icultural Specialty Grower/Techni norm ID = [id number] for BHUPENDRA MENDIOLA [id number] 06:29:00 Test Item Value Reference Range Interpretation Comments ACTIVATED CLOTTING TIME 499 sec : 74 -137 seconds, (BEAKER) (test code = Baseli ne: TESTED AT 441) [address], [facility] 30: Field H[employer]icultural Specialty Grower/Techni norm ID = [id number] for BE BHUPENDRA DOMINGUEZ [id number] 06:29:00 Test Item Value Reference Range Interpretation Comments ACTIVATED CLOTTING TIME 555 sec : 74 -137 seconds, (BEAKER) (test code = Baseli ne: TESTED AT 441) [address], [facility] 30: Field H[employer]icultural Specialty Grower/Techni norm ID = [id number] for BHUPENDRA MENDIOLA [id number] 06:29:00 Test Item Value Reference Range Interpretation Comments ACTIVATED CLOTTING TIME 439 sec : 74 -137 seconds, (MILTON) (test code = Baseli ne: TESTED AT 441) [facility] [address] [facility], 770 30: Field Horticultural Specialty Grower/Techni norm ID = [id number] for BHUPENDRA MENDIOLA [id number] 06:29:00 Test Item Value Reference Range Interpretation Comments ACTIVATED CLOTTING TIME 472 sec : 74 -137 seconds, (MILTON) (test code = Baseli ne: TESTED AT 441) [facility] [address] [facility], 770 30: [employer] Specialty Grower/Techni norm ID = [id number] for BHUPENDRA MENDIOLA RAD, CHEST, 1 VIEW, NON [id number] 05:19:00while patient is intubated or has chest tubes.Reason for exam:->Status post CV SurgeryShould thisbe performed at the bedside?->Yes [facility] : 1950 Sex: FFINAL REPORT [...] contours. Stable surgical changes.Additional findings: None. Signed: Octaviano Trujillo Verified Date/Time: 11/11/605668:19:20 C METABOLIC [id number] 05:06:00 Test Item Value Reference Range Interpretation [...] S NOT APPLICABLE FOR DIALYSIS PATIEN TS. [employer] Grower ID - [id number] 05:06:00 Test Item Value Reference Range Interpretation Comments MAGNESIUM (BEAKER) (test code = 2.3 mg/dL 1.6-2.6 627) [employer] Grower ID - [id number] 05:06:00 Test Item Value Reference Range Interpretation Comments PHOSPHORUS (BEAKER) (test code = 4.1 mg/dL 2.3-4.7 604) [employer] Special[employer] Grower ID - EDASILACTIC ACID, [id number] 04:31:00 Test Item Value Reference Range Interpretation Comments LACTATE BLOOD 2.4 mmol/L 0.5-2.2 H Specimen sligh tly ARTERIAL (2) (BEAKER) hemoly zed (test code = 2874) [employer] Grower ID - BSCBC W/PLT COUNT & AUTO [id number] 04:27:00 Test Item Value Reference Range Interpretation [...] 0-1 PERCENT (BEAKER) (test code = 2801) CALCIUM, [id number] 04:15:00 Test Item Value Reference Range Interpretation Comments CALCIUM IONIZED (BEAKER) (test 1.08 mmol/L 1.12-1.27 L code = 698) PH, BLOOD (BEAKER) (test code = 7.42 1810) BLOOD GAS, [id number] 04:15:00 Test Item Value Reference Range Interpretation [...] FIO2 (BEAKER) (test code = 1819) 32.0 POCT-GLUCOSE [id number] 22:46:00 Test Item Value Reference Range Interpretation Comments POC-GLUCOSE METER 123 mg/dL 70-110 H : TESTED A T [facility] (BEAKER) (test code = [place], 1538) [address]: Field [employer]icultural Specialty Grower/Techni norm ID = [id number] for DIANE MCCOLLUM BASIC METABOLIC [id number] 20:41:00 Test Item Value Reference Range Interpretation [...] S NOT APPLICABLE FOR DIALYSIS PATIEN TS. [employer] Specialty Grower ID - [id number] 20:41:00 Test Item Value Reference Range Interpretation Comments MAGNESIUM (BEAKER) (test code = 1.9 mg/dL 1.6-2.6 627) [employer] Special[employer] Grower ID - BSLACTIC ACID, [id number] 20:37:00 Test Item Value Reference Range Interpretation Comments LACTATE BLOOD ARTERIAL (2) 1.2 mmol/L 0.5-2.2 (BEAKER) (test code = 2874) [employer] Specialty Grower ID - BSCBC W/PLT COUNT & AUTO [id number] 20:28:00 Test Item Value Reference Range Interpretation [...] (BEAKER) (test code = 2801) BLOOD GAS, [id number] 20:25:00 Test Item Value Reference Range Interpretation [...] (test code = 1819) 28.0 BLOOD GAS, [id number] 19:28:00 Test Item Value Reference Range Interpretation [...] (BEAKER) (test code = 1819) 40.0 POCT-GLUCOSE [id number] 18:18:00 Test Item Value Reference Range Interpretation Comments POC-GLUCOSE METER 123 mg/dL 70-110 H : TESTED A T [facility] 6720 (BEAKER) (test code [facility], = 1538) [address]: Field H[employer]icultural Specialty Grower/Techni norm ID = [id number] for RAY TO, CHRISTIMARIE POCT-GLUCOSE [id number] 17:31:00 Test Item Value Reference Range Interpretation Comments POC-GLUCOSE METER 118 mg/dL 70-110 H : TESTED A T [facility] 6720 (BEAKER) (test code [facility], = 1538) [address]: Field H[employer]icultural Specialty Grower/Techni norm ID = [id number] for RAY TO, CHRISTIMARIE POCT-GLUCOSE [id number] 16:22:00 Test Item Value Reference Range Interpretation Comments POC-GLUCOSE METER 103 mg/dL 70-110 : TESTED A T [facility] 6720 (BEAKER) (test code [facility], = 1538) [address]: Field H[employer]icultural Specialty Grower/Techni norm ID = [id number] for RAY TO, CHRISTIMARIE [id number] 15:41:00 Test Item Value Reference Range Interpretation Comments PHOSPHORUS (BEAKER) 2.7 mg/dL 2.3-4.7 Specimen slightly (test code = 604) hemolyzed [employer] Grower ID - BSPOCT-GLUCOSE [id number] 15:38:00 Test Item Value Reference Range Interpretation Comments POC-GLUCOSE METER 106 mg/dL 70-110 : TESTED A T [facility] 6720 (BEAKER) (test code [facility], = 1538) [address]: Field H[employer]icultural Specialty Grower/Techni norm ID = [id number] for RAY TO, CHRISTIMARIE CBC W/PLT COUNT & AUTO [id number] 14:47:00 Test Item Value Reference Range Interpretation [...] (BEAKER) (test code = 2801) BASIC METABOLIC [id number] 14:38:00 Test Item Value Reference Range Interpretation [...] S NOT APPLICABLE FOR DIALYSIS PATIEN TS. Field [employer] Specialty Grower ID Vivian DE SANTIAGO [id number] 14:36:00 Test Item Value Reference Range Interpretation Comments MAGNESIUM (BEAKER) 1.5 mg/dL 1.6-2.6 L Specimen slightly (test code = 627) hemolyzed [employer] Grower ID Vivian DE SANTIAGO FLACTIC ACID, [id number] 14:33:00 Test Item Value Reference Range Interpretation Comments LACTATE BLOOD 1.7 mmol/L 0.5-2.2 Specimen sligh tly ARTERIAL (2) (BEAKER) hemoly zed (test code = 2874) [employer] Grower ID Vivian DE SANTIAGO FBLOOD GAS, [id number] 14:22:00 Test Item Value Reference Range Interpretation [...] FIO2 (BEAKER) (test code = 1819) 60.0 OXYGEN SATURATION, [id number] 14:16:00 Test Item Value Reference Range Interpretation Comments O2 SATURATION (MEASURED) (BEAKER) 66.4 % (test code = 1455) RAD, CHEST, 1 VIEW, NON [id number] 14:16:00Reason for exam:->Status post CV Surgery post op day 0Should this be performed at the bedside?->Yes [facility] : 1950 Sex: FFINAL REPORT [...] contours. Stable surgical changes.Additional findings: None. Signed: Ghanshyam Lock MDReport Verified Date/Time: 08/17/2020 14:16:32 Reading Location: [facility] Radiology Reading Room POTASSIUM-STAT [id number] 12:38:00 Test Item Value Reference Range Interpretation Comments POTASSIUM (BEAKER) (test code = 5.0 meq/L 3.6-5.5 379) BLOOD GAS, [id number] 12:38:00 Test Item Value Reference Range Interpretation [...] (BEAKER) (test code = 1819) 60.0 GLUCOSE-STAT [id number] 12:38:00 Test Item Value Reference Range Interpretation Comments GLUCOSE RANDOM (BEAKER) (test code 206 mg/dL 70-110 H = 652) CALCIUM, [id number] 12:38:00 Test Item Value Reference Range Interpretation Comments CALCIUM IONIZED (BEAKER) (test 1.11 mmol/L 1.12-1.27 L code = 698) PH, BLOOD (BEAKER) (test code = 7.41 1810) SODIUM NA-STAT [id number] 12:38:00 Test Item Value Reference Range Interpretation Comments SODIUM (BEAKER) (test code = 381) 133 meq/L 136-145 L HGB/HCT (H&H) - STAT [id number] 12:38:00 Test Item Value Reference Range Interpretation Comments HEMOGLOBIN (BEAKER) (test code = 8.4 GM/DL 12.0-15.0 L 410) HEMATOCRIT (BEAKER) (test code = 25.0 % 36.0-45.0 L 411) POTASSIUM-STAT [id number] 11:52:00 Test Item Value Reference Range Interpretation Comments POTASSIUM (BEAKER) (test code = 6.2 meq/L 3.6-5.5 HH 379) BLOOD GAS, [id number] 11:51:00 Test Item Value Reference Range Interpretation [...] (test code = 1819) 65.0 SODIUM NA-STAT [id number] 11:51:00 Test Item Value Reference Range Interpretation Comments SODIUM (BEAKER) (test code = 381) 132 meq/L 136-145 L GLUCOSE-STAT [id number] 11:51:00 Test Item Value Reference Range Interpretation Comments GLUCOSE RANDOM (BEAKER) (test code 238 mg/dL 70-110 H = 652) HGB/HCT (H&H) - STAT [id number] 11:51:00 Test Item Value Reference Range Interpretation Comments HEMOGLOBIN (BEAKER) (test code = 7.8 GM/DL 12.0-15.0 L 410) HEMATOCRIT (BEAKER) (test code = 23.0 % 36.0-45.0 L 411) BLOOD GAS, [id number] 10:48:00 Test Item Value Reference Range Interpretation [...] (BEAKER) (test code = 1819) 60.0 POTASSIUM-STAT [id number] 10:48:00 Test Item Value Reference Range Interpretation Comments POTASSIUM (BEAKER) (test code = 5.4 meq/L 3.6-5.5 379) BLOOD GAS, [id number] 10:48:00 Test Item Value Reference Range Interpretation [...] (test code = 1819) 60.0 SODIUM NA-STAT [id number] 10:48:00 Test Item Value Reference Range Interpretation Comments SODIUM (BEAKER) (test code = 381) 131 meq/L 136-145 L GLUCOSE-STAT [id number] 10:48:00 Test Item Value Reference Range Interpretation Comments GLUCOSE RANDOM (BEAKER) (test code 208 mg/dL 70-110 H = 652) HGB/HCT (H&H) - STAT [id number] 10:48:00 Test Item Value Reference Range Interpretation Comments HEMOGLOBIN (BEAKER) (test code = 7.7 GM/DL 12.0-15.0 L 410) HEMATOCRIT (BEAKER) (test code = 23.0 % 36.0-45.0 L 411) BLOOD GAS, [id number] 08:25:00 Test Item Value Reference Range Interpretation [...] (BEAKER) (test code = 1819) 90.0 GLUCOSE-STAT [id number] 08:25:00 Test Item Value Reference Range Interpretation Comments GLUCOSE RANDOM (BEAKER) (test code 127 mg/dL 70-110 H = 652) SODIUM NA-STAT [id number] 08:24:00 Test Item Value Reference Range Interpretation Comments SODIUM (BEAKER) (test code = 381) 136 meq/L 136-145 POTASSIUM-STAT [id number] 08:24:00 Test Item Value Reference Range Interpretation Comments POTASSIUM (BEAKER) (test code = 4.3 meq/L 3.6-5.5 379) HGB/HCT (H&H) - STAT [id number] 08:24:00 Test Item Value Reference Range Interpretation Comments HEMOGLOBIN (BEAKER) (test code = 12.6 GM/DL 12.0-15.0 410) HEMATOCRIT (BEAKER) (test code = 37.0 % 36.0-45.0 411) HEMOGLOBIN [id number] 22:12:00 Test Item Value Reference Range Interpretation Comments HEMOGLOBIN A1C (BEAKER) (test code = 5.8 % 4.3-6.1 368) [id number] 22:02:00 Test Item Value Reference Range Interpretation Comments MAGNESIUM (BEAKER) 1.7 mg/dL 1.6-2.6 Specimen slightly (test code = 627) hemolyzed Field [employer] Specialty Grower BRANDON DE SANTIAGO FCOMPREHENSIVE METABOLIC [id number] 22:02:00 Test Item Value Reference Range Interpretation [...] S NOT APPLICABLE FOR DIALYSIS PATIEN TS. Field [employer] Specialty Grower ID - JONNATHAN FLIPID [id number] 22:02:00 Test Item Value Reference Range Interpretation [...] Borderline 130-159 High 160-189 Very High >=190 Field [employer] Specialty Grower BRANDON BALLARD2020-11-09 21:49:00 Test Item Value Reference Range Interpretation Comments PARTIAL THROMBOPLASTIN TIME 31.5 seconds 22.5-36.0 (BEAKER) (test code = 760) PROTHROMBIN [id number] 21:48:00 Test Item Value Reference Range Interpretation [...] mechanical heart valves.CBC W/PLT COUNT & AUTO [id number] 21:43:00 Test Item Value Reference Range Interpretation [...] 0-1 PERCENT (BEAKER) (test code = 2801) SARS-COV2/RT-PCR ([facility])2020-08-14 20:18:00 Test Item Value Reference Range Interpretation Comments SARS-COV2/RT-PCR (test Negative Not Detected, Negative, code = 8861759) See external report for linked test SARS-COV-[address] [facility] (test code = 2218522) Negative result for this test determines that [...] individuals suspected of COVID-19 by their healthcare provider.This test [...] the Bourne SARS-CoV-2 assay.Fact Sheet for Healthcare Providers:https://www.ViewsIQ.bourne/luiz/ WU_GEBT-AmB-6_ZTO_Kyhk_Mnkfj_67-359103.pdfFact Sheet for Healthcare Patients:https://www.ViewsIQ.ugichem madiha/luiz/RC_HLLB-TnQ-9_Dggjrkd_Hfnf_Bxsqa_GW_49-786510G7.pdfPerforming Laboratory:[address] [address] BASIC METABOLIC [id number] 06:00:00 Test Item Value Reference Range Interpretation [...] S NOT APPLICABLE FOR DIALYSIS PATIEN TS. [employer] Specialty Grower ID - [id number] 06:00:00 Test Item Value Reference Range Interpretation Comments MAGNESIUM (BEAKER) (test code = 1.7 mg/dL 1.6-2.6 627) Field [employer] Specialty Grower ID - EDASIHEPATIC FUNCTION [id number] 06:00:00 Test Item Value Reference Range Interpretation [...] (test code = 24 U/L 6-55 347) [employer] Specialty Grower ID - EDASIPROTHROMBIN TIME/[id number] 05:25:00 Test Item Value Reference Range Interpretation [...] mechanical heart valves.CBC W/PLT COUNT & AUTO [id number] 05:13:00 Test Item Value Reference Range Interpretation [...] (test code = 2801) CT, BRAIN, WITHOUT [id number] 04:33:00Unlisted Reason for Exam - Click Yes and Enter Reason Below->No [facility] : 1950 Sex: FFINAL REPORT [...] recommended for further characterization. Signed: Bhupendra Avila [facility] Verified Date/Time: 08/14/2020 04:33:35 Thyroid Stimulating [id number] 22:54:49 Test Item Value Reference Range Interpretation Comments TSH (test code = TSH) 1.940 mIU/mL 0.270-4.200 Comprehensive Metabolic [id number] 22:34:40 Test Item Value Reference Range Interpretation [...] = A/G 1.4 ratio N Ratio) Lipid [id number] 22:34:40 Test Item Value Reference Range Interpretation Comments Cholesterol Total 212 mg/dL 0-200 H RISK OF HE ART (test code = DISEASEPublishe d by Cholesterol Total) [place] Farhana lyte Optimal Borderl ine [...] LDL/HDL Ratio=L DL Calc/HDL Chol Comprehensive Metabolic [id number] 22:34:40 Test Item Value Reference Range Interpretation [...] National Kid[employer] Foundation, http://nkdep.ni h.gov Comprehensive Metabolic [id number] 22:34:40 Test Item Value Reference Range Interpretation [...] by the [employer], http://nkdep.ni h.gov [id number] 21:47:04 Test Item Value Reference Range Interpretation [...] code = Normal Normal Plt Estimation) Automated [id number] 21:28:33 Test Item Value Reference Range Interpretation Comments Neutro Auto (test code = Neutro 59.6 % 36.0-70.0 Auto) Lymph Auto (test code = Lymph Auto) 29.8 % 12.0-44.0 [place] Auto (test code = [place] Auto) 8.2 % 0.0-11.0 Eos, Auto (test code = Eos, Auto) 1.8 % 0.0-7.0 Basophil Auto (test code = Basophil 0.4 % 0.0-2.0 Auto) Neutro Absolute (test code = Neutro 3.1 x10 1.6-7.4 Absolute) Lymph Absolute (test code = Lymph 1.53 x10 .50-4.60 Absolute) [place] Absolute (test code = [place] .42 x10 .00-1.20 Absolute) Eos Absolute (test code = Eos 0.09 x10 0.00-0.74 Absolute) Baso Absolute (test code = Baso 0.02 x10 0.00-0.21 Absolute) IG [id number] 21:28:33 Test Item Value Reference Range Interpretation Comments IG (test code = IG) 0.2 % 0.0-5.0 IG Abs (test code = IG Abs) 0 x10 N Complete Blood Count with [id number] 21:28:32 Test Item Value Reference Range Interpretation [...] 11 % N Complete Blood Count with [id number] 21:28:32 Test Item Value Reference Range Interpretation [...] IPF) 11 % N pap, LB + [id number] 00:00:00 Test Item Value Reference Range Interpretation Comments HPV type-detect 3.0 by next gen not detected sequencing (reflex to HPV-16 risk assessment status) (test code = HPV type-detect 3.0 by next gen sequencing (reflex to HPV-16 risk assessment status)) General categories normal [interpretation] of Cervical or vaginal smear or scraping by Cyto stain (test code = 32715-7) [facility]] in [id number] 00:00:00 Test Item Value Reference Range Interpretation [...] code = pseudomonas aeruginosa by real-time PCR) [facility]inal[facility] macro (dipstick) panel - [id number] 10:21:00 Test Item Value Reference Range Interpretation Comments Leukocytes (test code = Leukocytes) Trace Nitrite (test code = Nitrite) negative Urobilinogen (test code = 1 Urobilinogen) Protein (test code = Protein) 30 pH (test code = pH) 5.5 Blood (test code = Blood) Negative Specific Ericson (test code = 1.030 Specific Ericson) Ketone (test code = Ketone) Negative Bilirubin (test code = Bilirubin) Negative Glucose (test code = Glucose) Negative Appearance (test code = Appearance) Clear Color (test code = Color) Yellow [facility] macro (dipstick) panel - [id number] 10:21:00 Test Item Value Reference Range Interpretation Comments Leukocytes (test code = Leukocytes) Trace Nitrite (test code = Nitrite) negative Urobilinogen (test code = 1 Urobilinogen) Protein (test code = Protein) 30 pH (test code = pH) 5.5 Blood (test code = Blood) Negative Specific Ericson (test code = 1.030 Specific Ericson) Ketone (test code = Ketone) Negative Bilirubin (test code = Bilirubin) Negative Glucose (test code = Glucose) Negative Appearance (test code = Appearance) Clear Color (test code = Color) Yellow [facility] [id number] 09:00:00 Test Item Value Reference Range Interpretation Comments Surgical pathology see separate pathology study (test code = report. 29592-0) [facility] [id number] 12:33:00 Test Item Value Reference Range Interpretation Comments POC-GLUCOSE METER 131 mg/dL 70-110 H TESTED AT [address] ([facility]) (test code [address] [facility] [place] = 1538) [address] URINE [id number] 07:56:00 Test Item Value Reference Range Interpretation Comments CULTURE ([facility]) (test ESCHERICHIA COLI A 2 0-29,000 [...] = 47) <10,000 col/mL skin floraHEPATIC FUNCTION [id number] 06:05:00 Test Item Value Reference Range Interpretation [...] (test code = 36 U/L 5-50 347) [id number] 05:47:00 Test Item Value Reference Range Interpretation [...] for patients with mechanical heart valves.BASIC METABOLIC [id number] 05:46:00 Test Item Value Reference Range Interpretation [...] S NOT APPLICABLE FOR DIALYSIS PATIEN TS. [id number] 05:43:00 Test Item Value Reference Range Interpretation Comments PHOSPHORUS (BEAKER) (test code = 2.6 mg/dL 2.5-4.5 604) [id number] 05:38:00 Test Item Value Reference Range Interpretation Comments MAGNESIUM (BEAKER) (test code = 2.0 mg/dL 1.5-3.0 627) CBC W/PLT COUNT & AUTO [id number] 05:30:00 Test Item Value Reference Range Interpretation [...] PERCENT (BEAKER) (test code = 2801) CALCIUM, [id number] 05:06:00 Test Item Value Reference Range Interpretation Comments CALCIUM IONIZED (BEAKER) (test 1.18 mmol/L 1.12-1.27 code = 698) PH, BLOOD (BEAKER) (test code = 7.45 1810) [id number] 05:21:00 Test Item Value Reference Range Interpretation Comments PHOSPHORUS (BEAKER) (test code = 1.8 mg/dL 2.5-4.5 L 604) CALCIUM, [id number] 05:20:00 Test Item Value Reference Range Interpretation Comments CALCIUM IONIZED (BEAKER) (test 0.92 mmol/L 1.12-1.27 L code = 698) PH, BLOOD (BEAKER) (test code = 7.42 1810) BASIC METABOLIC [id number] 05:18:00 Test Item Value Reference Range Interpretation [...] APPLICABLE FOR DIALYSIS PATIEN TS. HEPATIC FUNCTION [id number] 05:16:00 Test Item Value Reference Range Interpretation [...] (test code = 28 U/L 5-50 347) [id number] 05:09:00 Test Item Value Reference Range Interpretation [...] is 2.5-3.5 for patients with mechanical heart valves.[id number] 05:07:00 Test Item Value Reference Range Interpretation Comments MAGNESIUM (BEAKER) (test code = 1.2 mg/dL 1.5-3.0 L 627) TROPONIN [id number] 15:48:00 Test Item Value Reference Range Interpretation [...] acidosis, acute neurological disease, and persistent tachyarrhythmia.HEMOGLOBIN [id number] 10:08:00 Test Item Value Reference Range Interpretation Comments HEMOGLOBIN A1C (MILTON) (test code = 6.1 % 4.3-6.1 368) CT, CHEST WITH IV CONTRAST- PE TEST [id number] 09:48:00FINAL REPORT CT of the chest, pulmonary [...] process identified in the thorax. Signed: Osmany Fincheport Verified Date/Time: 12/11/2018 09:48:10 Reading Location: [facility] C013X Ortho Consult Reading Room RAD, CHEST, 1 VIEW, NON DEPT 2018-12-11 09:10:00Reason for exam:->PULM EDEMAShould this be performed at the bedside?->YesFINAL REPORT Clinical History: PULM EDEMA Comparison Study: None Findings: The heart and lungs are within normal limits. The pleural spaces are clear. No significant bony or soft tissue abnormalities are seen. Impression: No active cardiopulmonary disease. Signed: David Rodriguezeport Verified Date/Time: 12/11/2018 09:10:32 Reading Location: [facility] Radiology Reading Room COMPREHENSIVE METABOLIC PANEL [...] NOT APPLICABLE FOR DIALYSIS PATIEN TS. TROPONIN [id number] 07:24:00 Test Item Value Reference Range Interpretation [...] acidosis, acute neurological disease, and persistent tachyarrhythmia.LIPID [id number] 07:23:00 Test Item Value Reference Range Interpretation [...] 100-129 Borderline 130-159 High 160-189 Very High [id number] 07:15:00 Test Item Value Reference Range Interpretation Comments MAGNESIUM (BEAKER) (test code = 2.0 mg/dL 1.5-3.0 627) CBC W/PLT COUNT & AUTO [id number] 07:00:00 Test Item Value Reference Range Interpretation [...] % 0-0 PERCENT (BEAKER) (test code = 0079)
[2021-10-27] MEDS ORDERED: ACETAMINOPHEN 500 MG TAB ONE (22:33)
--- NOTE | 2021-10-27 22:58 | RAD REPORT ---
EXAM DESCRIPTION: RAD - Chest Single View - 10/27/2021 10:49 pm CLINICAL HISTORY: COUGH Chest pain. COMPARISON: Abdomen 1 View (KUB) dated 10/10/2020; Chest Single View dated 09/22/2020; Chest Single Vi ew dated 08/11/2020; Chest Single View dated 08/03/2020 FINDINGS: Portable technique limits examination quality. The lungs are grossly clear. The heart is normal in size. Tortuous thoracic aorta is noted.Sternotomy wires are present.
[2021-10-27 23:47] LABS: SARS-COV-2 RT PCR POSITIVE (NEGATIVE)
--- NOTE | 2021-10-28 00:04 | ER ---
Nurse's Notes [facility] Name: Coel Cadena Age: 70 yrs Sex: Female : 1950 Arrival Date: 10/27/2021 Time: 21:52 Bed 18 Private MD: Diagnosis: SARS-associated coronavirus as the cause of diseases classified elsewhere Presentation: 10/27 21:58 Chief complaint: Patient states: "I have a headache and I'm coughing, its a dry cough" as6 pt states she is worried about COVID. Coronavirus screen: Client presents with at least one sign or symptom that may indicate coronavirus-19. Standard/surgical mask placed on the client. Ebola Screen: No symptoms or risks identified at this time. Initial Sepsis Screen: Does the patient meet any 2 criteria? No. Patient's initial sepsis screen is negative. Does the patient have a suspected source of infection? No. Patient's initial sepsis screen is negative. Risk Assessment: Do you want to hurt yourself or someone else? Patient reports no desire to harm self or others. Onset of symptoms was October 27, 2021. 21:58 Method Of Arrival: Ambulatory as6 21:58 Acuity: DYLAN 4 as6 Triage Assessment: 23:14 Headache History: The patient has had previous headaches and this one is similar to ll3 previous episodes. General: Appears in no apparent distress. uncomfortable, Behavior is calm, cooperative. Pain: Also complains of. Pain: Pain currently is 6 out of 10 on a pain scale. Pain began 1 day ago. Historical: - Allergies: 22:00 Tramadol HCl; as6 - Home Meds: 22:00 Hydrocodone-Acetaminophen Oral 1 cap twice a day [Active]; lisinopril 40 mg Oral tab 1 as6 tab once daily [Active]; aspirin 81 mg Oral tab [Active]; omeprazole 20 mg Oral cpDR 1 cap once daily for Gastroesophageal reflux [Active]; amlodipine 10 mg tab 1 tab once daily for Hypertension [Active]; Hydrochlorothiazide Oral [Active]; - PMHx: 22:00 Anxiety; Asthma; Depression; GERD; Hypertension; Gout; as6 - PSHx: 22:00 bypass; ankle; as6 - Immunization history:: Client reports receiving the 2nd dose of the Covid vaccine, moderna. - Social history:: Smoking status: Patient denies any tobacco usage or history of. Screenin:29 Abuse screen: Denies threats or abuse. Nutritional screening: No deficits noted. ll3 Tuberculosis screening: No symptoms or risk factors identified. 23:15 Fall Risk None identified. Total Tineo Fall Scale indicates No Risk (0-24 pts). ll3 Assessment: 22:25 General: Appears in no apparent distress. uncomfortable, Behavior is calm, cooperative, ll3 Reports feeling ill for 1-2 days. Pain: Denies pain. Neuro: No deficits noted. Level of Consciousness is awake, alert, obeys commands, Oriented to person, place, time, situation, Reports headache in left frontal area. Cardiovascular: Denies chest pain, shortness of breath, Patient's skin is warm and dry. Edema Bilateral edema to lower legs, Pt states the edema is normal for her. Respiratory: Respiratory effort is even, unlabored, Respiratory pattern is regular, symmetrical. Respiratory: Reports cough that is non-productive, Denies shortness of breath. EENT: Reports Sore throat . Derm: Skin is pink, warm \\T\\ dry. 23:14 Reassessment: Patient appears in no apparent distress at this time. No changes from ll3 previously documented assessment. Patient and/or family updated on plan of care and expected duration. Pain level reassessed. Patient is alert, oriented x 3, equal unlabored respirations, skin warm/dry/pink. 23:59 Reassessment: Patient appears in no apparent distress at this time. No changes from ll3 previously documented assessment. Patient and/or family updated on plan of care and expected duration. Pain level reassessed. Patient is alert, oriented x 3, equal unlabored respirations, skin warm/dry/pink. 10/28 00:26 Reassessment: D/C per MD order. Discharge/Prescription instructions given to patient. tk1 Verbalized understanding. Vital Signs: 10/27 21:58 BP 173 / 109; Pulse 91; Resp 18 S; Temp 98.0(O); Pulse Ox 98% on R/A; Weight 113.4 kg as6 (R); Height 5 ft. 2 in. (157.48 cm) (R); Pain 7/10; 23:13 BP 164 / 86; Pulse 84; Resp 17; Pulse Ox 96% on R/A; ll3 10/28 00:24 BP 156 / 87 RA Supine (auto/reg); Pulse 86 MON; Resp 20; Temp 97.9(O); Pulse Ox 96% on tk1 R/A; 10/27 21:58 Body Mass Index 45.73 (113.40 kg, 157.48 cm) as6 ED Course: 10/27 21:52 Patient arrived in ED. kc5 22:00 Triage completed. as6 22:05 Arm band placed on. as6 22:06 Fabian Scott PA is PHCP. cp 22:06 Bernardo Randall MD is Attending Physician. cp 22:25 Ute Alfonso, RN is Primary Nurse. ll3 22:29 Patient has correct armband on for positive identification. Bed in low position. Call ll3 light in reach. Side rails up X 1. 22:49 XRAY Chest (1 view) In Process Unspecified. EDMS 10/28 00:30 No provider procedures requiring assistance completed. ll3 00:30 Patient did not have IV access during this emergency room visit. ll3 Administered Medications: 10/27 22:32 Drug: Tylenol 1000 mg Route: PO; ll3 23:02 Follow up: Response: No adverse reaction ll3 Outcome: 10/28 00:03 Discharge ordered by MD. cp 00:33 Discharged to home ambulatory. ll3 00:33 Condition: stable 00:33 Discharge instructions given to patient, Instructed on discharge instructions, follow up and referral plans. medication usage, Demonstrated understanding of instructions, follow-up care, medications, Prescriptions given X 2. 00:33 Patient left the ED. ll3 Signatures: Dispatcher [employer] EDVT Fabian Scott PA PA cp Niraj Valente RN RN as6 Ute Alfonso, ASHA RN ll3 Chrissie Morataya kc5 Catrina Rosa tk1
--- NOTE | 2021-10-28 00:04 | EDPHYS ---
Physician Documentation [facility] Name: Cole Cadena Age: 70 yrs Sex: Female : 1950 Arrival Date: 10/27/2021 Time: 21:52 Bed 18 Private MD: ED Physician Bernardo Randall HPI: 10/27 22:25 This 70 yrs old Black Female presents to ER via Ambulatory with complaints of Cough, cp Headache, Weakness. 22:25 The patient or guardian reports cough, that is intermittent, with no sputum. Onset: The cp symptoms/episode began/occurred yesterday. Associated signs and symptoms: Pertinent positives: sore throat, headache, general weakness, Pertinent negatives: chest pain, diarrhea, fever, vomiting. 22:25 Patient reports receiving 2 doses of COVID-19 vaccine. cp Historical: - Allergies: 22:00 Tramadol HCl; as6 - Home Meds: 22:00 Hydrocodone-Acetaminophen Oral 1 cap twice a day [Active]; lisinopril 40 mg Oral tab 1 as6 tab once daily [Active]; aspirin 81 mg Oral tab [Active]; omeprazole 20 mg Oral cpDR 1 cap once daily for Gastroesophageal reflux [Active]; amlodipine 10 mg tab 1 tab once daily for Hypertension [Active]; Hydrochlorothiazide Oral [Active]; - PMHx: 22:00 Anxiety; Asthma; Depression; GERD; Hypertension; Gout; as6 - PSHx: 22:00 bypass; ankle; as6 - Immunization history:: Client reports receiving the 2nd dose of the Covid vaccine, moderna. - Social history:: Smoking status: Patient denies any tobacco usage or history of. ROS: 22:28 Eyes: Negative for injury, pain, redness, and discharge. cp 22:28 Constitutional: Negative for body aches, chills, fever, poor PO intake. 22:28 ENT: Positive for sore throat, Negative for drainage from ear(s), ear pain, difficulty swallowing, difficulty handling secretions. 22:28 Cardiovascular: Negative for chest pain, edema, palpitations. 22:28 Respiratory: Positive for cough, with no reported sputum, Negative for shortness of breath, wheezing. 22:28 Abdomen/GI: Negative for abdominal pain, nausea, vomiting, and diarrhea. 22:28 Neuro: Positive for headache, weakness, Negative for altered mental status, numbness. 22:28 All other systems are negative. Exam: 22:30 Constitutional: The patient appears in no acute distress, alert, awake, comfortable, cp non-diaphoretic, non-toxic, well developed, well nourished. 22:30 Head/Face: Normocephalic, atraumatic. cp 22:30 Eyes: Periorbital structures: appear normal, Conjunctiva: normal, no exudate, no injection, Sclera: no appreciated abnormality, Lids and lashes: appear normal, bilaterally. 22:30 ENT: External ear(s): are unremarkable, Nose: is normal, Mouth: Lips: moist, Oral mucosa: pink and intact, moist, Posterior pharynx: Airway: no evidence of obstruction, patent, erythema, is not appreciated, exudate, is not appreciated. 22:30 Neck: ROM/movement: is normal, is supple, without pain, no range of motions limitations. 22:30 Chest/axilla: Inspection: normal. 22:30 Cardiovascular: Rate: normal, Edema: is not appreciated, JVD: is not appreciated. 22:30 Respiratory: the patient does not display signs of respiratory distress, Respirations: normal, no use of accessory muscles, no retractions, labored breathing, is not present, Breath sounds: are clear throughout, no decreased breath sounds, no stridor, no wheezing. 22:30 Abdomen/GI: Exam negative for discomfort, distension, guarding, Inspection: abdomen appears normal. 22:30 Back: pain, is absent, ROM is normal. 22:30 Neuro: Orientation: to person, place \\T\\ time. Mentation: is normal, Motor: moves all fours, strength is normal, Sensation: is normal. Vital Signs: 21:58 BP 173 / 109; Pulse 91; Resp 18 S; Temp 98.0(O); Pulse Ox 98% on R/A; Weight 113.4 kg as6 (R); Height 5 ft. 2 in. (157.48 cm) (R); Pain 7/10; 23:13 BP 164 / 86; Pulse 84; Resp 17; Pulse Ox 96% on R/A; ll3 10/28 00:24 BP 156 / 87 RA Supine (auto/reg); Pulse 86 MON; Resp 20; Temp 97.9(O); Pulse Ox 96% on tk1 R/A; 10/27 21:58 Body Mass Index 45.73 (113.40 kg, 157.48 cm) as6 MDM: 10/27 22:07 Patient medically screened. cp 10/28 00:00 Differential Diagnosis: Bronchitis Influenza Pharyngitis Viral Syndrome Pneumonia. cp 00:03 Data reviewed: vital signs, nurses notes, lab test result(s), radiologic studies, plain cp films. 00:03 Test interpretation: by ED physician or midlevel provider: plain radiologic studies. cp Counseling: I had a detailed discussion with the patient and/or guardian regarding: the historical points, exam findings, and any diagnostic results supporting the discharge/admit diagnosis, lab results, radiology results, to return to the emergency department if symptoms worsen or persist or if there are any questions or concerns that arise at home. ED course: VSS. Patient appears non-toxic and no signs of respiratory distress. Will discharge to home for continued monitoring. 10/27 22:07 Order name: COVID-19/FLU A+B (Document "Date of Onset" if Symptomatic); Complete Time: cp 23:54 10/27 23:54 Interpretation: Reviewed. cp 10/27 22:26 Order name: Strep cp 10/27 22:26 Order name: XRAY Chest (1 view); Complete Time: 23:26 cp 10/27 23:26 Interpretation: Report review. cp 10/28 00:31 Order name: Throat Culture EDMS Administered Medications: 10/27 22:32 Drug: Tylenol 1000 mg Route: PO; ll3 23:02 Follow up: Response: No adverse reaction ll3 Disposition: 10/28 05:10 Co-signature as Attending Physician, Bernardo Randall MD. [email or web address] Disposition Summary: 10/28/21 00:03 Discharge Ordered Location: Home cp Problem: new cp Symptoms: have improved cp Condition: Stable cp Diagnosis - SARS-associated coronavirus as the cause of diseases classified elsewhere cp Followup: cp - With: Private Physician - When: 2 - 3 days - Reason: Worsening of condition Discharge Instructions: - Discharge Summary Sheet cp - Aspirin and Your Heart cp - COVID-19 cp - Things to Know about the COVID-19 Pandemic - [facility] cp - 10 Things You Can Do to Manage Your COVID-19 Symptoms at Home - [facility] cp - COVID-19: Quarantine vs. Isolation - [facility] cp - Prevent the Spread of COVID-19 if You Are Sick - [facility] cp Forms: - Medication Reconciliation Form cp - Thank You Letter cp - Antibiotic Education cp - Prescription Opioid Use cp Prescriptions: - Tessalon Perles 100 mg Oral Capsule - take 1 capsule by ORAL route every 8 hours As needed; 15 capsule; Refills: 0, cp Product Selection Permitted - Zithromax Z-Marino 250 mg Oral Tablet - take 1 tablet by ORAL route as directed for 5 days Day 1 - take two (2) tablets cp one time. Day 2, 3, 4 , 5 take one (1) tablet once daily.; 6 tablet; Refills: 0, Product Selection Permitted Signatures: Dispatcher [employer] EDMS Fabian Scott PA PA cp Bernardo Randall MD MD mh7 Niraj Valente RN RN as6 Ute Alfonso RN RN ll3
[2021-10-28 02:08] VITALS: O2SAT 96
[2021-10-28 02:10] VITALS: BP 156/87; TEMP 97.9
== END 2021-10-28 00:33 | disposition home or self-care (01) ==
LOC: ER 21:50
DX: U07.1 COVID-19 (principal); I10 Essential (primary) hypertension; F32.A Depression, unspecified; Z88.5 Allergy status to narcotic agent; Z95.1 Presence of aortocoronary bypass graft
CPT/HCPCS: 87070; 87081; 0240U; 71045; 99283

== ENCOUNTER 2021-11-23 17:55 | Observation (INO) | payer OTHER ==
--- OUTSIDE RECORDS SUMMARY | 2021-11-23 17:59 | XMS REPORT | Continuity of Care Document ---
:1950 Author Organization [facility] t Address [address] [place] [address] Care Team Providers Name Role Phone EVELINA [...] Effective Date Expiration Date S denidudley AAR/MEDICARE [id number] 2019 COMPLETE 00:00:00 MEDICAID [place] [id number] 2018 00:00:00 [place] B-[place]: [id number] 2014 [employer] 00:00:00 [employer] [place] [id number] 2019 COMMUNITY CARE - 00:00:00 STAR (MEDICAID HMO) MEDICARE A-[place]: [id number] 2014 Weplay - 00:00:00 RHC - FQHC Problems Condition [...] 00:00: 00 Tramadol Allergy Active [place] [facility] Social History Smoking Status Start Date Stop Date Source Never Smoker [facility] Medications This patient has [...] BMI (Body Mass 2019-05-13 00:00:00 38.6 kg/m2 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 BP Systolic 2019-05-13 00:00:00 170 mm[Hg] [facility] Body Weight 2019-05-13 00:00:00 211 [lb_av] [facility] BP Diastolic 2019-04-15 00:00:00 94 mm[Hg] [facility] Height 2019-04-15 00:00:00 62 [in_i] [facility] BMI (Body Mass 2019-04-15 00:00:00 37.9 kg/m2 [facility] 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) Group BP Systolic 2019-04-15 00:00:00 130 mm[Hg] [facility] Body Weight 2019-04-15 00:00:00 207 [lb_av] [facility] Procedures Procedure Date / Time Performed Performing Clinician Sourc e Carotid Stent [facility] Tubal Ligation [facility] Foot/toes Surgery [facility] Encounters Start End Encounter Admission Attending Care Care Encounter Source Date/Time Date/Time Type Type Clinicians Facility Department ID 2020-08-13 Inpatient [facility], [facility] Cardiology [id number] SLE 19:32:00 MARIA ELENA 2020-09-09 2020-09-09 Outpatient [facility] [id number] SLE 00:00:00 00:00:00 BHUPENDRA 2020-08-25 2020-08-25 Outpatient [facility] [id number] [place] 02:23:00 02:23:00 [facility]8 [facility] 2020-05-11 2020-05-11 Outpatient [facility] [id number] [place] 12:39:00 12:39:00 0821 [facility] 2020-04-22 2020-04-22 Outpatient [facility]G [id number] [place] 12:17:00 12:17:00 0716 [facility] 2019-05-13 2019-05-13 [facility] [place] - [id number] [place] 00:00:00 00:00:00 Chantale Shea MD: [address] [facility] [address], [place] [address] , Ph. [phone] 2019-04-15 2019-04-15 [facility] [place] - [id number] [place] 00:00:00 00:00:00 Chantale Shea MD: [address] [facility] [address], [place] [address] , Ph. [phone] Results Test Description Test Time Test Comments Results Result Comments Source SARS-COV2/RT-PCR ([facility]) 2020-08-24 12:40:00 Test Item Value Reference Range Interpretation Comme nts SARS-COV2/RT-PCR (test code = 6195815) Negative Not Detected, N egative, See external report for linked test SARS-COV-2 PERFORMING LAB (test code = [facility] 6593421) Negative result for this test determines that [...] 564(g) of the Act.Fact Sheet for Healthcare Providers:https://www.EXPO.UrbanBuz/sites/default/files/product/documents/Fact_Shee i_QS_Hjjaxfljr_Swfa_ZIYV-BuK-8.pdfFact Sheet for Healthcare Patients:https://www.EXPO.UrbanBuz/sites/default/files/product/ documents/Hmtz_Llasp_Fjgpphjy_Krtb_IPYD-BjW-3.pdfPerforming Laboratory:[facility], [place] [address]VSFUG METABOLIC PANEL 2020-08-24 04:37:00 Test Item Value [...] S NOT APPLICABLE FOR DIALYSIS PATIEN TS. Golf Cart Maker ID - EDASICBC W/PLT COUNT & AUTO [id number] 04:04:00 Test Item Value Reference Range Interpretation [...] (BEAKER) (test code = 2801) BASIC METABOLIC [id number] 10:27:00 Test Item Value Reference Range Interpretation [...] S NOT APPLICABLE FOR DIALYSIS PATIEN TS. Golf Cart Maker ID - EDASICBC W/PLT COUNT & AUTO [id number] 10:07:00 Test Item Value Reference Range Interpretation [...] (BEAKER) (test code = 2801) BASIC METABOLIC [id number] 10:29:00 Test Item Value Reference Range Interpretation [...] S NOT APPLICABLE FOR DIALYSIS PATIEN TS. Golf Cart Maker ID - MARTINA CLACTIC ACID, [id number] 06:55:00 Test Item Value Reference Range Interpretation Comments LACTATE BLOOD ARTERIAL (2) 1.5 mmol/L 0.5-2.2 (BEAKER) (test code = 2874) Golf Cart Maker ID - DBCBC W/PLT COUNT & AUTO [id number] 06:47:00 Test Item Value Reference Range Interpretation [...] PERCENT (BEAKER) (test code = 2805) CALCIUM, [id number] 06:43:00 Test Item Value Reference Range Interpretation Comments CALCIUM IONIZED (BEAKER) (test 1.12 mmol/L 1.12-1.27 code = 698) PH, BLOOD (BEAKER) (test code = 7.41 1810) RAD, CHEST, 1 VIEW, NON [id number] 06:22:00while patient is intubated or has chest tubes.Reason for exam:->Status post CV SurgeryShould thisbe performed at the bedside?->Yes [facility] 1950 Sex: FFINAL [...] There is no pneumothorax. Signed: Santosh Grullon [facility] Verified Date/Time: 08/20/2020 06:22:53 BASIC METABOLIC [id number] 15:13:00 Test Item Value Reference Range Interpretation [...] S NOT APPLICABLE FOR DIALYSIS PATIEN TS. Golf Cart Maker ID Vivian JONNATHAN [id number] 15:13:00 Test Item Value Reference Range Interpretation Comments MAGNESIUM (BEAKER) (test code = 2.0 mg/dL 1.6-2.6 627) Golf Cart Maker ID Vivian DE SANTIAGO [id number] 15:13:00 Test Item Value Reference Range Interpretation Comments PHOSPHORUS (BEAKER) (test code = 2.2 mg/dL 2.3-4.7 L 604) Golf Cart Maker ID Vivian DE SANTIAGO FLACTIC ACID, [id number] 15:01:00 Test Item Value Reference Range Interpretation Comments LACTATE BLOOD VENOUS 3.11 mmol/L 0.50-2.20 H Specime n slightly (2) (BEAKER) (test hemolyzed code = 8680) Golf Cart Maker ID Vivian JONNATHAN FCBC W/PLT COUNT & AUTO [id number] 14:57:00 Test Item Value Reference Range Interpretation [...] PERCENT (BEAKER) (test code = 2801) CALCIUM, [id number] 14:51:00 Test Item Value Reference Range Interpretation Comments CALCIUM IONIZED (BEAKER) (test 1.12 mmol/L 1.12-1.27 code = 698) PH, BLOOD (BEAKER) (test code = 7.30 1810) RAD, CHEST, 1 VIEW, NON [id number] 02:59:00while patient is intubated or has chest tubes.Reason for exam:->Status post CV SurgeryShould thisbe performed at the bedside?->Yes [facility] 1950 Sex: FFINAL [...] Stable contours.Additional findings: None. Signed: Bhupendra Avila [facility] Verified Date/Time: 08/19/2020 02:59:01 [id number] 06:29:00 Test Item Value Reference Range Interpretation Comments ACTIVATED CLOTTING TIME 92 sec : 74 -137 seconds, (BEAKER) (test code = Baseli ne: TESTED AT 441) [address], [facility] 30: Golf Cart Maker/Techni norm ID = [id number] for BHUPENDRA MENDIOLA [id number] 06:29:00 Test Item Value Reference Range Interpretation Comments ACTIVATED CLOTTING TIME 499 sec : 74 -137 seconds, (BEAKER) (test code = Baseli ne: TESTED AT 441) [address], [facility] 30: Golf Cart Maker/Techni norm ID = [id number] for BE BHUPENDRA DOMINGUEZ [id number] 06:29:00 Test Item Value Reference Range Interpretation Comments ACTIVATED CLOTTING TIME 555 sec : 74 -137 seconds, (BEAKER) (test code = Baseli ne: TESTED AT 441) [address], [facility] 30: Golf Cart Maker/Techni norm ID = [id number] for BHUPENDRA MENDIOLA [id number] 06:29:00 Test Item Value Reference Range Interpretation Comments ACTIVATED CLOTTING TIME 439 sec : 74 -137 seconds, (MILTON) (test code = Baseli ne: TESTED AT 441) [facility] [address] [facility], 770 30: Golf Cart Maker/Techni norm ID = [id number] for BHUPENDRA MENDIOLA [id number] 06:29:00 Test Item Value Reference Range Interpretation Comments ACTIVATED CLOTTING TIME 472 sec : 74 -137 seconds, (MILTON) (test code = Baseli ne: TESTED AT 441) [facility] [address] [facility], 770 30: Golf Cart Maker/Techni norm ID = [id number] for BHUPENDRA MENDIOLA RAD, CHEST, 1 VIEW, NON [id number] 05:19:00while patient is intubated or has chest tubes.Reason for exam:->Status post CV SurgeryShould thisbe performed at the bedside?->Yes [facility] : 1950 Sex: FFINAL [...] findings: None. Signed: Octaviano Trujillo Verified Date/Time: 11/11/602194:19:20 C METABOLIC [id number] 05:06:00 Test Item Value Reference Range Interpretation [...] S NOT APPLICABLE FOR DIALYSIS PATIEN TS. Golf Cart Maker ID - [id number] 05:06:00 Test Item Value Reference Range Interpretation Comments MAGNESIUM (BEAKER) (test code = 2.3 mg/dL 1.6-2.6 627) Golf Cart Maker ID - [id number] 05:06:00 Test Item Value Reference Range Interpretation Comments PHOSPHORUS (BEAKER) (test code = 4.1 mg/dL 2.3-4.7 604) Golf Cart Maker ID - EDASILACTIC ACID, [id number] 04:31:00 Test Item Value Reference Range Interpretation Comments LACTATE BLOOD 2.4 mmol/L 0.5-2.2 H Specimen sligh tly ARTERIAL (2) (BEAKER) hemoly zed (test code = 2874) Golf Cart Maker ID - BSCBC W/PLT COUNT & AUTO [id number] 04:27:00 Test Item Value Reference Range Interpretation [...] PERCENT (BEAKER) (test code = 2801) CALCIUM, [id number] 04:15:00 Test Item Value Reference Range Interpretation Comments CALCIUM IONIZED (BEAKER) (test 1.08 mmol/L 1.12-1.27 L code = 698) PH, BLOOD (BEAKER) (test code = 7.42 1810) BLOOD GAS, [id number] 04:15:00 Test Item Value Reference Range Interpretation [...] (BEAKER) (test code = 1819) 32.0 POCT-GLUCOSE [id number] 22:46:00 Test Item Value Reference Range Interpretation Comments POC-GLUCOSE METER 123 mg/dL 70-110 H : TESTED A T [facility] [address] (BEAKER) (test code = [place]GELO FERREIR[place], 1538) [address]: Golf Cart Maker/Techni norm ID = [id number] for DIANE MCCOLLUM BASIC METABOLIC [id number] 20:41:00 Test Item Value Reference Range Interpretation [...] S NOT APPLICABLE FOR DIALYSIS PATIEN TS. Golf Cart Maker ID - [id number] 20:41:00 Test Item Value Reference Range Interpretation Comments MAGNESIUM (BEAKER) (test code = 1.9 mg/dL 1.6-2.6 627) Golf Cart Maker ID - BSLACTIC ACID, [id number] 20:37:00 Test Item Value Reference Range Interpretation Comments LACTATE BLOOD ARTERIAL (2) 1.2 mmol/L 0.5-2.2 (BEAKER) (test code = 2874) Golf Cart Maker ID - BSCBC W/PLT COUNT & AUTO [id number] 20:28:00 Test Item Value Reference Range Interpretation [...] (BEAKER) (test code = 2801) BLOOD GAS, [id number] 20:25:00 Test Item Value Reference Range Interpretation [...] (test code = 1819) 28.0 BLOOD GAS, [id number] 19:28:00 Test Item Value Reference Range Interpretation [...] (BEAKER) (test code = 1819) 40.0 POCT-GLUCOSE [id number] 18:18:00 Test Item Value Reference Range Interpretation Comments POC-GLUCOSE METER 123 mg/dL 70-110 H : TESTED A T [facility] 6720 (BEAKER) (test code [facility], = 1538) [address]: Golf Cart Maker/Techni norm ID = [id number] for RAY TO, CHRISTIMARIE POCT-GLUCOSE [id number] 17:31:00 Test Item Value Reference Range Interpretation Comments POC-GLUCOSE METER 118 mg/dL 70-110 H : TESTED A T [facility] 6720 (BEAKER) (test code [facility], = 1538) [address]: Golf Cart Maker/Techni norm ID = [id number] for RAY TO, CHRISTIMARIE POCT-GLUCOSE [id number] 16:22:00 Test Item Value Reference Range Interpretation Comments POC-GLUCOSE METER 103 mg/dL 70-110 : TESTED A T [facility] 6720 (BEAKER) (test code [facility], = 1538) [address]: Golf Cart Maker/Techni norm ID = [id number] for RAY TO, CHRISTIMARIE [id number] 15:41:00 Test Item Value Reference Range Interpretation Comments PHOSPHORUS (BEAKER) 2.7 mg/dL 2.3-4.7 Specimen slightly (test code = 604) hemolyzed Golf Cart Maker ID - BSPOCT-GLUCOSE [id number] 15:38:00 Test Item Value Reference Range Interpretation Comments POC-GLUCOSE METER 106 mg/dL 70-110 : TESTED A T [facility] 6720 (BEAKER) (test code [facility], = 1538) [address]: Golf Cart Maker/Techni norm ID = [id number] for RAY TO, CHRISTIMARIE CBC W/PLT COUNT & AUTO [id number] 14:47:00 Test Item Value Reference Range Interpretation [...] (BEAKER) (test code = 2801) BASIC METABOLIC [id number] 14:38:00 Test Item Value Reference Range Interpretation [...] S NOT APPLICABLE FOR DIALYSIS PATIEN TS. Golf Cart Maker ID Vivian DE SANTIAGO [id number] 14:36:00 Test Item Value Reference Range Interpretation Comments MAGNESIUM (BEAKER) 1.5 mg/dL 1.6-2.6 L Specimen slightly (test code = 627) hemolyzed Golf Cart Maker ID Vivian DE SANTIAGO FLACTIC ACID, [id number] 14:33:00 Test Item Value Reference Range Interpretation Comments LACTATE BLOOD 1.7 mmol/L 0.5-2.2 Specimen sligh tly ARTERIAL (2) (BEAKER) hemoly zed (test code = 2874) Golf Cart Maker ID Vivian DE SANTIAGO FBLOOD GAS, [id number] 14:22:00 Test Item Value Reference Range Interpretation [...] (test code = 1819) 60.0 OXYGEN SATURATION, [id number] 14:16:00 Test Item Value Reference Range Interpretation Comments O2 SATURATION (MEASURED) (BEAKER) 66.4 % (test code = 1455) RAD, CHEST, 1 VIEW, NON [id number] 14:16:00Reason for exam:->Status post CV Surgery post op day 0Should this be performed at the bedside?->Yes [facility] : 1950 Sex: FFINAL [...] MDReport Verified Date/Time: 08/17/2020 14:16:32 Reading Location: [facility] [address] Radiology Reading Room POTASSIUM-STAT [id number] 12:38:00 Test Item Value Reference Range Interpretation Comments POTASSIUM (BEAKER) (test code = 5.0 meq/L 3.6-5.5 379) BLOOD GAS, [id number] 12:38:00 Test Item Value Reference Range Interpretation [...] (BEAKER) (test code = 1819) 60.0 GLUCOSE-STAT [id number] 12:38:00 Test Item Value Reference Range Interpretation Comments GLUCOSE RANDOM (BEAKER) (test code 206 mg/dL 70-110 H = 652) CALCIUM, [id number] 12:38:00 Test Item Value Reference Range Interpretation Comments CALCIUM IONIZED (BEAKER) (test 1.11 mmol/L 1.12-1.27 L code = 698) PH, BLOOD (BEAKER) (test code = 7.41 1810) SODIUM NA-STAT [id number] 12:38:00 Test Item Value Reference Range Interpretation Comments SODIUM (BEAKER) (test code = 381) 133 meq/L 136-145 L HGB/HCT (H&H) - STAT [id number] 12:38:00 Test Item Value Reference Range Interpretation Comments HEMOGLOBIN (BEAKER) (test code = 8.4 GM/DL 12.0-15.0 L 410) HEMATOCRIT (BEAKER) (test code = 25.0 % 36.0-45.0 L 411) POTASSIUM-STAT [id number] 11:52:00 Test Item Value Reference Range Interpretation Comments POTASSIUM (BEAKER) (test code = 6.2 meq/L 3.6-5.5 HH 379) BLOOD GAS, [id number] 11:51:00 Test Item Value Reference Range Interpretation [...] (test code = 1819) 65.0 SODIUM NA-STAT [id number] 11:51:00 Test Item Value Reference Range Interpretation Comments SODIUM (BEAKER) (test code = 381) 132 meq/L 136-145 L GLUCOSE-STAT [id number] 11:51:00 Test Item Value Reference Range Interpretation Comments GLUCOSE RANDOM (BEAKER) (test code 238 mg/dL 70-110 H = 652) HGB/HCT (H&H) - STAT [id number] 11:51:00 Test Item Value Reference Range Interpretation Comments HEMOGLOBIN (BEAKER) (test code = 7.8 GM/DL 12.0-15.0 L 410) HEMATOCRIT (BEAKER) (test code = 23.0 % 36.0-45.0 L 411) BLOOD GAS, [id number] 10:48:00 Test Item Value Reference Range Interpretation [...] (BEAKER) (test code = 1819) 60.0 POTASSIUM-STAT [id number] 10:48:00 Test Item Value Reference Range Interpretation Comments POTASSIUM (BEAKER) (test code = 5.4 meq/L 3.6-5.5 379) BLOOD GAS, [id number] 10:48:00 Test Item Value Reference Range Interpretation [...] (test code = 1819) 60.0 SODIUM NA-STAT [id number] 10:48:00 Test Item Value Reference Range Interpretation Comments SODIUM (BEAKER) (test code = 381) 131 meq/L 136-145 L GLUCOSE-STAT [id number] 10:48:00 Test Item Value Reference Range Interpretation Comments GLUCOSE RANDOM (BEAKER) (test code 208 mg/dL 70-110 H = 652) HGB/HCT (H&H) - STAT [id number] 10:48:00 Test Item Value Reference Range Interpretation Comments HEMOGLOBIN (BEAKER) (test code = 7.7 GM/DL 12.0-15.0 L 410) HEMATOCRIT (BEAKER) (test code = 23.0 % 36.0-45.0 L 411) BLOOD GAS, [id number] 08:25:00 Test Item Value Reference Range Interpretation [...] (BEAKER) (test code = 1819) 90.0 GLUCOSE-STAT [id number] 08:25:00 Test Item Value Reference Range Interpretation Comments GLUCOSE RANDOM (BEAKER) (test code 127 mg/dL 70-110 H = 652) SODIUM NA-STAT [id number] 08:24:00 Test Item Value Reference Range Interpretation Comments SODIUM (BEAKER) (test code = 381) 136 meq/L 136-145 POTASSIUM-STAT [id number] 08:24:00 Test Item Value Reference Range Interpretation Comments POTASSIUM (BEAKER) (test code = 4.3 meq/L 3.6-5.5 379) HGB/HCT (H&H) - STAT [id number] 08:24:00 Test Item Value Reference Range Interpretation Comments HEMOGLOBIN (BEAKER) (test code = 12.6 GM/DL 12.0-15.0 410) HEMATOCRIT (BEAKER) (test code = 37.0 % 36.0-45.0 411) HEMOGLOBIN [id number] 22:12:00 Test Item Value Reference Range Interpretation Comments HEMOGLOBIN A1C (BEAKER) (test code = 5.8 % 4.3-6.1 368) [id number] 22:02:00 Test Item Value Reference Range Interpretation Comments MAGNESIUM (BEAKER) 1.7 mg/dL 1.6-2.6 Specimen slightly (test code = 627) hemolyzed Golf Cart Maker BRANDON DE SANTIAGO FCOMPREHENSIVE METABOLIC [id number] 22:02:00 Test Item Value Reference Range Interpretation [...] S NOT APPLICABLE FOR DIALYSIS PATIEN TS. Golf Cart Maker ID - JONNATHAN FLIPID [id number] 22:02:00 Test Item Value Reference Range Interpretation [...] Borderline 130-159 High 160-189 Very High >=190 Golf Cart Maker BRANDON BALLARD2020-11-09 21:49:00 Test Item Value Reference Range Interpretation Comments PARTIAL THROMBOPLASTIN TIME 31.5 seconds 22.5-36.0 (BEAKER) (test code = 760) PROTHROMBIN [id number] 21:48:00 Test Item Value Reference Range Interpretation [...] mechanical heart valves.CBC W/PLT COUNT & AUTO [id number] 21:43:00 Test Item Value Reference Range Interpretation [...] PERCENT (BEAKER) (test code = 2801) SARS-COV2/RT-PCR ([facility])2020-08-14 20:18:00 Test Item Value Reference Range Interpretation Comments SARS-COV2/RT-PCR (test Negative Not Detected, Negative, code = 7478635) See external report for linked test SARS-COV-[address] [facility] (test code = 8792142) Negative result for this test determines that [...] the Bourne SARS-CoV-2 assay.Fact Sheet for Healthcare Providers:https://www.YapStone.bourne/luiz/ SD_LZXA-WvC-3_BUG_Tlds_Kphid_13-147243.pdfFact Sheet for Healthcare Patients:https://www.YapStone.FiftyFiver madiha/luiz/FW_ITYR-SrI-8_Haelmjq_Nyvo_Fojxl_CX_32-483878C3.pdfPerforming Laboratory:[address] [address] BASIC METABOLIC [id number] 06:00:00 Test Item Value Reference Range Interpretation [...] S NOT APPLICABLE FOR DIALYSIS PATIEN TS. Golf Cart Maker ID - [id number] 06:00:00 Test Item Value Reference Range Interpretation Comments MAGNESIUM (BEAKER) (test code = 1.7 mg/dL 1.6-2.6 627) Golf Cart Maker ID - EDASIHEPATIC FUNCTION [id number] 06:00:00 Test Item Value Reference Range Interpretation [...] (test code = 24 U/L 6-55 347) Golf Cart Maker ID - EDASIPROTHROMBIN TIME/[id number] 05:25:00 Test Item Value Reference Range Interpretation [...] mechanical heart valves.CBC W/PLT COUNT & AUTO [id number] 05:13:00 Test Item Value Reference Range Interpretation [...] (test code = 2801) CT, BRAIN, WITHOUT [id number] 04:33:00Unlisted Reason for Exam - Click Yes and Enter Reason Below->No [facility] : 1950 Sex: FFINAL [...] recommended for further characterization. Signed: [facility]upendra Avila [facility] Verified Date/Time: 08/14/2020 04:33:35 Thyroid Stimulating [id number] 22:54:49 Test Item Value Reference Range Interpretation Comments TSH (test code = TSH) 1.940 mIU/mL 0.270-4.200 Comprehensive Metabolic [id number] 22:34:40 Test Item Value Reference Range Interpretation [...] = A/G 1.4 ratio N Ratio) Lipid [id number] 22:34:40 Test Item Value Reference Range Interpretation Comments Cholesterol Total 212 mg/dL 0-200 H RISK OF HE ART (test code = DISEASEPublishe d by Cholesterol Total) [place] Farhana lyte Optimal Borderl ine [...] LDL/HDL Ratio=L DL Calc/HDL Chol Comprehensive Metabolic [id number] 22:34:40 Test Item Value Reference Range Interpretation [...] National Kidney Foundation, http://nkdep.ni h.gov Comprehensive Metabolic [id number] 22:34:40 Test Item Value Reference Range Interpretation [...] by the National Kidney Foundation, http://nkdep.ni h.gov [id number] 21:47:04 Test Item Value Reference Range Interpretation [...] code = Normal Normal Plt Estimation) Automated [id number] 21:28:33 Test Item Value Reference Range Interpretation Comments Neutro Auto (test code = Neutro 59.6 % 36.0-70.0 Auto) Lymph Auto (test code = Lymph Auto) 29.8 % 12.0-44.0 Weston Auto (test code = Weston Auto) 8.2 % 0.0-11.0 Eos, Auto (test code = Eos, Auto) 1.8 % 0.0-7.0 Basophil Auto (test code = Basophil 0.4 % 0.0-2.0 Auto) Neutro Absolute (test code = Neutro 3.1 x10 1.6-7.4 Absolute) Lymph Absolute (test code = Lymph 1.53 x10 .50-4.60 Absolute) Weston Absolute (test code = Weston .42 x10 .00-1.20 Absolute) Eos Absolute (test code = Eos 0.09 x10 0.00-0.74 Absolute) Baso Absolute (test code = Baso 0.02 x10 0.00-0.21 Absolute) IG [id number] 21:28:33 Test Item Value Reference Range Interpretation Comments IG (test code = IG) 0.2 % 0.0-5.0 IG Abs (test code = IG Abs) 0 x10 N Complete Blood Count with [id number] 21:28:32 Test Item Value Reference Range Interpretation [...] 11 % N Complete Blood Count with [id number] 21:28:32 Test Item Value Reference Range Interpretation [...] IPF) 11 % N pap, LB + [id number] 00:00:00 Test Item Value Reference Range Interpretation Comments HPV type-detect 3.0 by next gen not detected sequencing (reflex to HPV-16 risk assessment status) (test code = HPV type-detect 3.0 by next gen sequencing (reflex to HPV-16 risk assessment status)) General categories normal [interpretation] of Cervical or vaginal smear or scraping by Cyto stain (test code = 91824-9) [facility] [#/volume] in [id number] 00:00:00 Test Item Value Reference Range Interpretation [...] code = pseudomonas aeruginosa by real-time PCR) [facility] HospitalUrinalysis macro (dipstick) panel - [id number] 10:21:00 Test Item Value Reference Range Interpretation Comments Leukocytes (test code = Leukocytes) Trace Nitrite (test code = Nitrite) negative Urobilinogen (test code = 1 Urobilinogen) Protein (test code = Protein) 30 pH (test code = pH) 5.5 Blood (test code = Blood) Negative Specific Nipton (test code = 1.030 Specific Nipton) Ketone (test code = Ketone) Negative Bilirubin (test code = Bilirubin) Negative Glucose (test code = Glucose) Negative Appearance (test code = Appearance) Clear Color (test code = Color) Yellow [facility] HospitalUrinalysis macro (dipstick) panel - [id number] 10:21:00 Test Item Value Reference Range Interpretation Comments Leukocytes (test code = Leukocytes) Trace Nitrite (test code = Nitrite) negative Urobilinogen (test code = 1 Urobilinogen) Protein (test code = Protein) 30 pH (test code = pH) 5.5 Blood (test code = Blood) Negative Specific Nipton (test code = 1.030 Specific [place]) Ketone (test code = Ketone) Negative Bilirubin (test code = Bilirubin) Negative Glucose (test code = Glucose) Negative Appearance (test code = Appearance) Clear Color (test code = Color) Yellow [facility] [id number] 09:00:00 Test Item Value Reference Range Interpretation Comments Surgical pathology see separate pathology study (test code = report. 43808-1) [facility] [id number] 12:33:00 Test Item Value Reference Range Interpretation Comments POC-GLUCOSE METER 131 mg/dL 70-110 H TESTED AT [address] ([facility]) (test code [address] [facility] [place] = 1538) [address]83 URINE [id number] 07:56:00 Test Item Value Reference Range Interpretation Comments CULTURE ([facility]) (test ESCHERICHIA COLI A 2 [...] = 47) <10,000 col/mL skin floraHEPATIC FUNCTION [id number] 06:05:00 Test Item Value Reference Range Interpretation [...] (test code = 36 U/L 5-50 347) [id number] 05:47:00 Test Item Value Reference Range Interpretation [...] for patients with mechanical heart valves.BASIC METABOLIC [id number] 05:46:00 Test Item Value Reference Range Interpretation [...] S NOT APPLICABLE FOR DIALYSIS PATIEN TS. [id number] 05:43:00 Test Item Value Reference Range Interpretation Comments PHOSPHORUS (BEAKER) (test code = 2.6 mg/dL 2.5-4.5 604) [id number] 05:38:00 Test Item Value Reference Range Interpretation Comments MAGNESIUM (BEAKER) (test code = 2.0 mg/dL 1.5-3.0 627) CBC W/PLT COUNT & AUTO [id number] 05:30:00 Test Item Value Reference Range Interpretation [...] PERCENT (BEAKER) (test code = 2801) CALCIUM, [id number] 05:06:00 Test Item Value Reference Range Interpretation Comments CALCIUM IONIZED (BEAKER) (test 1.18 mmol/L 1.12-1.27 code = 698) PH, BLOOD (BEAKER) (test code = 7.45 1810) [id number] 05:21:00 Test Item Value Reference Range Interpretation Comments PHOSPHORUS (BEAKER) (test code = 1.8 mg/dL 2.5-4.5 L 604) CALCIUM, [id number] 05:20:00 Test Item Value Reference Range Interpretation Comments CALCIUM IONIZED (BEAKER) (test 0.92 mmol/L 1.12-1.27 L code = 698) PH, BLOOD (BEAKER) (test code = 7.42 1810) BASIC METABOLIC [id number] 05:18:00 Test Item Value Reference Range Interpretation [...] APPLICABLE FOR DIALYSIS PATIEN TS. HEPATIC FUNCTION [id number] 05:16:00 Test Item Value Reference Range Interpretation [...] (test code = 28 U/L 5-50 347) [id number] 05:09:00 Test Item Value Reference Range Interpretation [...] is 2.5-3.5 for patients with mechanical heart valves.[id number] 05:07:00 Test Item Value Reference Range Interpretation Comments MAGNESIUM (BEAKER) (test code = 1.2 mg/dL 1.5-3.0 L 627) TROPONIN [id number] 15:48:00 Test Item Value Reference Range Interpretation [...] acidosis, acute neurological disease, and persistent tachyarrhythmia.HEMOGLOBIN [id number] 10:08:00 Test Item Value Reference Range Interpretation Comments HEMOGLOBIN A1C ([place]) (test code = 6.1 % 4.3-6.1 368) CT, CHEST WITH IV CONTRAST- PE TEST [id number] 09:48:00FINAL REPORT CT of the chest, pulmonary [...] [place] Verified Date/Time: 12/11/2018 09:48:10 Reading Location: [facility] C013X Ortho Consult Reading Room [...] [place] Verified Date/Time: 12/11/2018 09:10:32 Reading Location: [facility] [address] Radiology Reading Room COMPREHENSIVE METABOLIC PANEL 2018-12-11 [...] NOT APPLICABLE FOR DIALYSIS PATIEN TS. TROPONIN [id number] 07:24:00 Test Item Value Reference Range Interpretation [...] acidosis, acute neurological disease, and persistent tachyarrhythmia.LIPID [id number] 07:23:00 Test Item Value Reference Range Interpretation [...] 100-129 Borderline 130-159 High 160-189 Very High [id number] 07:15:00 Test Item Value Reference Range Interpretation Comments MAGNESIUM (BEAKER) (test code = 2.0 mg/dL 1.5-3.0 627) CBC W/PLT COUNT & AUTO [id number] 07:00:00 Test Item Value Reference Range Interpretation [...] % 0-0 PERCENT (BEAKER) (test code = 9884)
[2021-11-23 18:24] LABS: Absolute Lymphocytes (CBC) 2.2 K/uL (0.7-4.9); Lymphocytes % 37.9 % (15.3-44.8); MPV 9.1 fL (7.6-11.3); RBC Red Blood Cell Count 4.66 M/uL (3.86-4.86)
[2021-11-23 18:30] LABS: Protime INR 1.09
[2021-11-23] MEDS ORDERED: FENTANYL CITR 100 MCG/2 ML ONE (18:34)
[2021-11-23] MEDS ORDERED: ONDANSETRON 4 MG/2 ML VIAL ONE (18:34)
[2021-11-23 18:48] LABS: ALT/SGPT 39 U/L (12-78); AST/SGOT 28 U/L (15-37); Albumin 3.5 g/dL (3.4-5.0); Alkaline Phosphatase 117 U/L (45-117); BUN Blood Urea Nitrogen 23 mg/dL (7-18); Bicarbonate 26 mmol/L (21-32); Bilirubin Direct < 0.1 mg/dL (0-0.2); Bilirubin Total 0.2 mg/dL (0.2-1.0); Glucose Level 123 mg/dL (74-106); NT PRO-BNP 65 pg/mL (<125); Potassium 3.9 mmol/L (3.5-5.1); Protein, Total 7.4 g/dL (6.4-8.2); Sodium Level 138 mmol/L (136-145)
--- NOTE | 2021-11-23 19:23 | RAD REPORT ---
EXAM DESCRIPTION: RAD - Chest Single View - 11/23/2021 6:57 pm CLINICAL HISTORY: CHEST PAIN COMPARISON: Chest Single View dated 10/27/2021; Abdomen 1 View (KUB) dated 10/10/2020; Chest Single Vie w dated 09/22/2020; Chest Single View dated 08/11/2020 FINDINGS: Lines: None. Lungs: No evidence of edema or pneumonia. Pleural: No significant pleural effusions or pneumothorax. Cardiac: The heart size is within normal limits. Bones: No acute fractures. Other: Sternotomy. IMPRESSION: No acute cardiopulmonary disease.
[2021-11-23] MEDS ORDERED: NA CHLORIDE 0.9% 100 ML ONE (19:25)
[2021-11-23] MEDS ORDERED: METOCLOPRAMIDE 10 MG/2mL INJ ONE (19:25)
[2021-11-23] MEDS ORDERED: KETOROLAC 30 MG/ML INJ ONE (19:25)
[2021-11-23] MEDS ORDERED: DIPHENHYDRAMINE 50 MG/ML VIAL ONE (19:25)
--- NOTE | 2021-11-23 20:03 | RAD REPORT ---
EXAM DESCRIPTION: CT - Head Brain Wo Cont - 11/23/2021 7:52 pm CLINICAL HISTORY: HEADACHE COMPARISON: <Comparisons> TECHNIQUE: All CT scans are performed using dose optimization technique as appropriate and may inclu de automated exposure control or mA/KV adjustment according to patient size. FINDINGS: No intracranial hemorrhage, hydrocephalus or extra-axial fluid collection.No areas of brai n edema or evidence of midline shift. Moderate chronic small vessel ischemic changes. Remote right ba luiz ganglia lacunar infarct. The paranasal sinuses and mastoids are clear. The calvarium is intact. IMPRESSION: No acute intracranial abnormality.
--- NOTE | 2021-11-23 20:07 | EDPHYS ---
Physician Documentation [facility] Name: Cole Cadena Age: 70 yrs Sex: Female : 1950 Arrival Date: 11/23/2021 Time: 18:02 Bed 20 Private MD: ED Physician Zac Narayanan HPI: 11/23 18:58 This 70 yrs old Black Female presents to ER via EMS with complaints of chest pain. kb 18:58 The patient or guardian reports chest pain that is located primarily in the substernal kb area. Onset: last night. The pain does not radiate. Associated signs and symptoms: The patient has no apparent associated signs or symptoms. The chest pain is described as aching. Duration: The patient or guardian reports a single episode, that is still ongoing. Modifying factors: The symptoms are alleviated by nothing. the symptoms are aggravated by nothing. Severity of pain: At its worst the pain was moderate in the emergency department the pain is unchanged. The patient has experienced similar episodes in the past, a few times. The patient has not recently seen a physician. Pt reports chest pain that started last night, worse today. States she also developed a migraine today that is similar to previous. Historical: - Allergies: 20:41 Tramadol HCl; ll3 - Immunization history:: Adult Immunizations up to date. - Social history:: Smoking status: . ROS: 18:57 Constitutional: Negative for fever, chills, and weight loss. kb 18:57 Cardiovascular: Positive for chest pain, Negative for edema, orthopnea, palpitations, paroxysmal nocturnal dyspnea. 18:57 Neuro: Positive for headache. 18:57 All other systems are negative. Exam: 18:58 Constitutional: This is a well developed, well nourished patient who is awake, alert, kb and in no acute distress. Head/Face: Normocephalic, atraumatic. ENT: Moist Mucous membranes Cardiovascular: Regular rate and rhythm with a normal S1 and S2. No gallops, murmurs, or rubs. No pulse deficits. Respiratory: Respirations even and unlabored. No increased work of breathing. Talking in full sentences Skin: Warm, dry with normal turgor. Normal color. MS/ Extremity: Pulses equal, no cyanosis. Neurovascular intact. Full, normal range of motion. Neuro: Awake and alert, GCS 15, oriented to person, place, time, and situation. Moves all extremities. Normal gait. Psych: Awake, alert, with orientation to person, place and time. Behavior, mood, and affect are within normal limits. Vital Signs: 18:02 BP 120 / 70; Pulse 80; Resp 16; Temp 98.6; Pulse Ox 100% ; Weight 113.85 kg; Height 5 cb5 ft. 7 in. (170.18 cm); Pain 10/10; 19:29 BP 183 / 97; Pulse 75; Resp 18; Pulse Ox 96% ; ll3 20:01 BP 160 / 110; Pulse 74; Resp 14; Pulse Ox 98% on R/A; ll3 18:02 Body Mass Index 39.31 (113.85 kg, 170.18 cm) cb5 MDM: 18:04 Patient medically screened. kb 18:58 Data reviewed: vital signs, nurses notes. Data interpreted: Pulse oximetry: on room air kb is 100 %. Interpretation: normal. 20:05 Counseling: I had a detailed discussion with the patient and/or guardian regarding: the kb historical points, exam findings, and any diagnostic results supporting the discharge/admit diagnosis, lab results, radiology results, the need for further work-up and treatment in the hospital. Physician consultation: Zachary MATA was contacted at 20:06, regarding admission, to the telemetry unit. patient's condition, and will see patient in ED. 11/23 18:04 Order name: Basic Metabolic Panel kb 11/23 18:04 Order name: CBC with Diff kb 11/23 18:04 Order name: LFT's kb 11/23 18:04 Order name: Magnesium; Complete Time: 18:55 kb 11/23 18:04 Order name: NT PRO-BNP; Complete Time: 18:55 kb 11/23 18:04 Order name: PT-INR; Complete Time: 18:31 kb 11/23 18:04 Order name: Troponin HS; Complete Time: 18:55 kb 11/23 18:04 Order name: XRAY Chest (1 view); Complete Time: 19:25 kb 11/23 18:05 Order name: Basic Metabolic Panel; Complete Time: 18:55 EDMS 11/23 18:05 Order name: CBC with Automated Diff; Complete Time: 18:31 EDMS 11/23 18:05 Order name: Liver (Hepatic) Function; Complete Time: 18:55 EDMS 11/23 18:26 Order name: CT Head Brain wo Cont; Complete Time: 20:05 kb 11/23 18:27 Order name: COVID-19 SARS RT PCR (Document "Date of Onset" if Symptomatic); Complete kb Time: 19:53 11/23 18:04 Order name: EKG; Complete Time: 18:05 kb 11/23 18:04 Order name: Cardiac monitoring; Complete Time: 18:21 kb 11/23 18:04 Order name: EKG - Nurse/Tech; Complete Time: 18:36 kb 11/23 18:04 Order name: IV Saline Lock; Complete Time: 18:21 kb 11/23 18:04 Order name: Labs collected and sent; Complete Time: 18:21 kb 11/23 18:04 Order name: O2 Per Protocol; Complete Time: 18:21 kb 11/23 18:04 Order name: O2 Sat Monitoring; Complete Time: 18:21 kb Administered Medications: 18:36 Drug: fentaNYL (PF) 50 mcg Route: IVP; Site: left antecubital; cb5 20:49 Follow up: Response: No adverse reaction ll3 18:36 Drug: Zofran (Ondansetron) 4 mg Route: IVP; Site: left antecubital; cb5 20:48 Follow up: Response: No adverse reaction ll3 19:23 CANCELLED (Duplicate Order): Benadryl (diphenhydrAMINE) 25 mg IVP once kb 19:37 Drug: TORadol (ketorolac) 30 mg Route: IVP; Site: left antecubital; ll3 20:48 Follow up: Response: No adverse reaction ll3 19:37 Drug: Reglan (metoCLOPramide) 10 mg Route: IVP; Site: left antecubital; ll3 20:48 Follow up: Response: No adverse reaction ll3 19:37 Drug: Benadryl (diphenhydrAMINE) 25 mg Route: IVP; Site: left antecubital; ll3 20:48 Follow up: Response: No adverse reaction ll3 19:39 Not Given (Duplicate Order): Benadryl (diphenhydrAMINE) 12.5 mg IVP once kb 20:46 Drug: HYDROcodone-acetaminophen 5 mg-325 mg 1 tabs Route: PO; ll3 Disposition Summary: 11/23/21 20:06 Hospitalization Ordered Hospitalization Status: Observation kb Provider: Ollie Zamorano Location: Telemetry/MedSurg (observation) kb Condition: Stable kb Problem: new kb Symptoms: are unchanged kb Bed/Room Type: Standard kb Room Assignment: 201(11/23/21 20:18) eb1 Diagnosis - Chest pain, unspecified kb Forms: - Medication Reconciliation Form kb - SBAR form kb Addendum: 11/25/2021 19:19 Co-signature as Attending Physician, Zac Narayanan MD I agree with the assessment and k dr plan of care. Signatures: Dispatcher [employer] EDMS Rissa Cisneros, COLLAR RUNNER-C COLLAR RUNNER-Ckb Zac Narayanan MD MD kdr Zachary Soares, COLLAR RUNNER-C COLLAR RUNNER-Cla1 Amanda Yates, RN RN eb1 Ute Alfonso RN RN ll3 Anuja Doran, RN RN cb5 Corrections: (The following items were deleted from the chart) 11/23 19:23 19:21 Benadryl (diphenhydrAMINE) 25 mg IVP once ordered. ll3 kb 19:23 19:23 Benadryl (diphenhydrAMINE) 25 mg IVP once ordered. kb kb 20:18 20:06 kb eb1
--- NOTE | 2021-11-23 20:07 | ER ---
Nurse's Notes [facility] Name: Cole Cadena Age: 70 yrs Sex: Female : 1950 Arrival Date: 11/23/2021 Time: 18:02 Bed 20 Private MD: Diagnosis: Chest pain, unspecified Presentation: 11/23 18:02 Chief complaint: Patient states: headache. Coronavirus screen: Vaccine status: Patient cb5 reports receiving the 2nd dose of the covid vaccine. Ebola Screen: Patient negative for fever greater than or equal to 101.5 degrees Fahrenheit, and additional compatible Ebola Virus Disease symptoms Patient denies exposure to infectious person. Initial Sepsis Screen: Does the patient meet any 2 criteria? No. Patient's initial sepsis screen is negative. Does the patient have a suspected source of infection? No. Patient's initial sepsis screen is negative. Risk Assessment: Do you want to hurt yourself or someone else? Patient reports no desire to harm self or others. 18:02 Method Of Arrival: EMS: [facility] cb5 18:02 Acuity: DYLAN 3 cb5 Triage Assessment: 18:08 General: Appears in no apparent distress. comfortable, well groomed, Behavior is calm, cb5 cooperative, appropriate for age. Pain: Complains of pain in head Pain currently is 8 out of 10 on a pain scale. EENT: No deficits noted. Neuro: Level of Consciousness is awake, alert, obeys commands, Oriented to person, place, time, situation, Appropriate for age. Cardiovascular: Reports headache. Respiratory: No deficits noted. GI: No deficits noted. : No deficits noted. Derm: No deficits noted. Musculoskeletal: No deficits noted. Historical: - Allergies: 20:41 Tramadol HCl; ll3 - Immunization history:: Adult Immunizations up to date. - Social history:: Smoking status: . Screenin:13 Abuse screen: Denies threats or abuse. Denies injuries from another. Nutritional cb5 screening: No deficits noted. Tuberculosis screening: No symptoms or risk factors identified. Fall Risk IV access (20 points). Assessment: 18:13 Reassessment: see triage assessment from this nurse. cb5 19:30 Reassessment: Pt c/o migraine, ERP, notified, v/o for Reglan, Benadryl, and Toradol, ll3 medicated as ordered, tolerate well. Vital Signs: 18:02 BP 120 / 70; Pulse 80; Resp 16; Temp 98.6; Pulse Ox 100% ; Weight 113.85 kg; Height 5 cb5 ft. 7 in. (170.18 cm); Pain 10/10; 19:29 BP 183 / 97; Pulse 75; Resp 18; Pulse Ox 96% ; ll3 20:01 BP 160 / 110; Pulse 74; Resp 14; Pulse Ox 98% on R/A; ll3 18:02 Body Mass Index 39.31 (113.85 kg, 170.18 cm) cb5 ED Course: 18:02 Patient arrived in ED. cb5 18:02 Anuja Doran, ASHA is Primary Nurse. cb5 18:04 Rissa Cisneros FNP-C is PHCP. kb 18:04 Zac Narayanan MD is Attending Physician. kb 18:07 Triage completed. cb5 18:13 Arm band placed on. cb5 18:13 No provider procedures requiring assistance completed. cb5 18:14 Bed in low position. Call light in reach. Side rails up X 1. cb5 18:18 Initial lab(s) drawn, by me, sent to lab. kv1 18:21 Liver (Hepatic) Function Sent. cb5 18:21 Basic Metabolic Panel Sent. cb5 18:21 CBC with Automated Diff Sent. cb5 18:21 Basic Metabolic Panel Sent. cb5 18:21 CBC with Diff Sent. cb5 18:21 LFT's Sent. cb5 18:21 Magnesium Sent. cb5 18:21 NT PRO-BNP Sent. cb5 18:21 PT-INR Sent. cb5 18:21 Troponin HS Sent. cb5 18:28 Liver (Hepatic) Function Sent. cb5 18:28 Basic Metabolic Panel Sent. cb5 18:28 CBC with Automated Diff Sent. cb5 18:36 COVID-19 SARS RT PCR (Document "Date of Onset" if Symptomatic) Sent. cb5 18:47 Magnesium Sent. cb5 18:47 NT PRO-BNP Sent. cb5 18:47 Troponin HS Sent. cb5 18:57 XRAY Chest (1 view) In Process Unspecified. EDMS 19:06 Report given to Martha Unger. cb5 19:52 CT Head Brain wo Cont In Process Unspecified. EDMS 20:06 Okundaye, Ebima, MD is Hospitalizing Provider. kb Administered Medications: 18:36 Drug: fentaNYL (PF) 50 mcg Route: IVP; Site: left antecubital; cb5 20:49 Follow up: Response: No adverse reaction ll3 18:36 Drug: Zofran (Ondansetron) 4 mg Route: IVP; Site: left antecubital; cb5 20:48 Follow up: Response: No adverse reaction ll3 19:23 CANCELLED (Duplicate Order): Benadryl (diphenhydrAMINE) 25 mg IVP once kb 19:37 Drug: TORadol (ketorolac) 30 mg Route: IVP; Site: left antecubital; ll3 20:48 Follow up: Response: No adverse reaction ll3 19:37 Drug: Reglan (metoCLOPramide) 10 mg Route: IVP; Site: left antecubital; ll3 20:48 Follow up: Response: No adverse reaction ll3 19:37 Drug: Benadryl (diphenhydrAMINE) 25 mg Route: IVP; Site: left antecubital; ll3 20:48 Follow up: Response: No adverse reaction ll3 19:39 Not Given (Duplicate Order): Benadryl (diphenhydrAMINE) 12.5 mg IVP once kb 20:46 Drug: HYDROcodone-acetaminophen 5 mg-325 mg 1 tabs Route: PO; ll3 Outcome: 20:06 Decision to Hospitalize by Provider. kb 21:58 Patient left the ED. mw2 Signatures: Dispatcher [employer] EDAK Rissa Cisneros, ADOLFO GUERINP-Letty Conde mw2 Ute Alfonso, RN RN ll3 Yaakov Shankar Colleen, RN RN cb5
--- NOTE | 2021-11-23 20:10 | P.HP ---
Certification for Inpatient Patient admitted to: Observation With expected LOS: <2 Midnights Patient will require the following post-hospital care: None Practitioner: I am a practitioner with admitting privileges, knowledge of patient current condition, hospital course, and medical plan of care. Services: Services provided to patient in accordance with Admission requirements found in Title 42 Section 412.3 of the Code of Federal Regulations Patient History Date of Service: 11/23/21 Reason for admission: Chest pain History of Present Illness: 70-year-old -[place] female with history of CAD status post CABG, asthma, GERD, hypertension presents emergency department for chest pain and headache. At time of my evaluation patient was tearful with severe headache she describes as similar to her previous migraines, for this reason patient did not give detailed history was relatively poor historian. Patient does report that she been having chest pain throughout the night last night but was unable to describe the pain for me. She did tell me that she had a triple bypass towards the end of last year and has had stents before that. Patient was evaluated in the emergency department her labs were unremarkable initial high-sensitivity troponin 8.6 chest x-ray without any acute cardiopulmonary processes CT head brain without contrast also negative for any acute findings. ED provider currently medicating for migraine wishes to admit for ACS rule out. Allergies tramadol Allergy (Verified 08/11/20 23:29) throwing up, delirium Home Medications: Aspirin [Aspirin EC 81 MG] 81 mg PO DAILY 02/12/19 Oxybutynin Chloride [Ditropan Xl*] 5 mg PO BID 08/11/20 Albuterol Neb [Proventil 0.083% Neb Soln] 2.5 mg IH Q6H PRN 09/23/20 Albuterol Sulfate [Albuterol Sulfate Hfa] 1 puff IH Q6H PRN 09/23/20 Atorvastatin Calcium [Lipitor] 80 mg PO BEDTIME 09/23/20 Budesonide/Formoterol Fumarate [Symbicort 160-4.5 Mcg Inhaler] 2 puff IH BID 09/23/20 Citalopram [Celexa*] 20 tab PO BEDTIME 09/23/20 Colchicine 0.6 tab PO DAILY 09/23/20 Cyclosporine [Restasis] 0.05 % EACH EYE BID 09/23/20 Losartan Potassium [Cozaar*] 50 tab PO DAILY 09/23/20 Metoprolol Tartrate 25 tab PO BID 09/23/20 Thyroid,Pork [[place] Thyroid] 15 tab PO DAILY 09/23/20 hydroCHLOROthiazide [Hydrochlorothiazide*] 25 mg PO DAILY 09/23/20 - Past Medical/Surgical History Diabetic: No -: Depression with anxiety -: GERD -: Hypertension -: CAD S/P CABG 2020 -: Hyperlipidemia -: Asthma -: gout -: arthiritis -: tubal ligation -: Cardiac stent -: left leg sx with plate and screws Psychosocial/ Personal History: Patient . She lives by herself. - Family History Father -: Lung disease Mother -: Heart disease - Social History Smoking Status: Never smoker Alcohol use: No CD- Drugs: No Caffeine use: No Place of Residence: Home Review of Systems 10-point ROS is otherwise unremarkable Cardiovascular: Chest Pain Neurological: Other (Headache) Physical Examination - Physical Exam General: Alert, In no apparent distress, Oriented x3 HEENT: Atraumatic, PERRLA, Mucous membr. moist/pink, EOMI, Sclerae nonicteric Neck: Supple, 2+ carotid pulse no bruit, No LAD, Without JVD or thyroid abnormality Respiratory: Clear to auscultation bilaterally, Normal air movement Cardiovascular: Regular rate/rhythm, Normal S1 S2 Gastrointestinal: Normal bowel sounds, No tenderness Musculoskeletal: No tenderness Integumentary: No rashes Neurological: Normal gait, Normal speech, Normal strength at 5/5 x4 extr, Normal tone, Normal affect Lymphatics: No axilla or inguinal lymphadenopathy - Studies Laboratory Data (last 24 hrs) 11/23/21 18:16: PT 12.5, INR 1.09 11/23/21 18:16: WBC 5.70, Hgb 13.1, Hct 40.0, Plt Count 157 11/23/21 18:16: Sodium 138, Potassium 3.9, BUN 23 H, Creatinine 0.89, Glucose 123 H, Magnesium 2.0, Total Bilirubin 0.2, AST 28, ALT 39, Alkaline Phosphatase 117 Assessment and Plan - Plan Assessment: Chest pain rule out ACS history CAD S/P CABG 2020 Hypertension Asthma GERD Depression Migraine Plan: Chest pain rule out ACS history CAD S/P CABG 2020: Monitor on telemetry, trend troponins, aspirin, statin, beta-rajiv therapy. As needed morphine. Cardiology consulted. Hypertension: Obtain and continue medications, metoprolol ordered now. Asthma: As needed nebulizer treatment GERD: Continue with Protonix p.o. daily Depression: Obtain and restart her medications Migraine: Currently receiving migraine cocktail in ER. Will provide medication as needed as well. DVT PPX: Lovenox Code status: Full Discharge Plan: Home Plan to discharge in: 24 Hours - Advance Directives Does patient have a Living Will: No Does patient have a Durable POA for Healthcare: No - Code Status/Comfort Care Code Status Assessed: Yes (Full) Critical Care: No Time Spent Managing Pts Care (In Minutes): 55
[2021-11-23] MEDS ORDERED: HYDROCODONE/APAP 5/325 MG TAB ONE (20:45)
[2021-11-23] MEDS ORDERED: MORPHINE 2 MG/ML SYR IV PRN (21:23)
[2021-11-23] MEDS ORDERED: ATORVASTATIN 40 MG TAB PO SCH (21:23)
[2021-11-23] MEDS ORDERED: ONDANSETRON 4 MG/2 ML VIAL IV PRN (21:23)
[2021-11-23] MEDS ORDERED: HYDRALAZINE HCL 20 MG/ML VIAL IV PRN (21:23)
[2021-11-23] MEDS: HYDROCODONE/APAP 5/325 MG TAB PO PRN (22:32)
[2021-11-24 02:05] VITALS: O2SAT 100; BMI 36.4
[2021-11-24 05:50] LABS: Absolute Lymphocytes (CBC) 1.8 K/uL (0.7-4.9); Hematocrit 38.5 % (36.0-45.0); Lymphocytes % 26.9 % (15.3-44.8); MPV 9.8 fL (7.6-11.3); RBC Red Blood Cell Count 4.46 M/uL (3.86-4.86)
[2021-11-24] MEDS ORDERED: METOPROLOL TAR 25 MG TAB PO SCH (06:00)
[2021-11-24 06:08] LABS: Albumin 3.2 g/dL (3.4-5.0); Bilirubin Total 0.3 mg/dL (0.2-1.0); Potassium 3.6 mmol/L (3.5-5.1); Thyroid Stimulating Hormone 1.66 uIU/mL (0.360-3.740); Troponin High Sensitivity 8.8 pg/mL (<58.9)
[2021-11-24] MEDS ORDERED: PANTOPRAZOLE 40MG TABLET PO SCH (06:30)
[2021-11-24] MEDS ORDERED: ASPIRIN EC 81 MG TAB PO SCH (09:00)
[2021-11-24] MEDS ORDERED: ENOXAPARIN 40 MG/0.4 ML SQ SCH (09:00)
--- NOTE | 2021-11-24 09:37 | P.DS ---
Admission Date: 11/23/21 Discharge Date: 11/24/21 Disposition: ROUTINE DISCHARGE Discharge Condition: FAIR Reason for Admission: Chest pain Brief History of Present Illness: History of Present Illness: 70-year-old -[place] female with history of CAD status post CABG, asthma, GERD, hypertension presents emergency department for chest pain and headache. At time of my evaluation patient was tearful with severe headache she describes as similar to her previous migraines, for this reason patient did not give detailed history was relatively poor historian. Patient does report that she been having chest pain throughout the night last night but was unable to describe the pain for me. She did tell me that she had a triple bypass towards the end of last year and has had stents before that. Patient was evaluated in the emergency department her labs were unremarkable initial high-sensitivity troponin 8.6 chest x-ray without any acute cardiopulmonary processes CT head brain without contrast also negative for any acute findings. ED provider currently medicating for migraine wishes to admit for ACS rule out. Allergies tramadol Allergy (Verified 08/11/20 23:29) throwing up, delirium Home Medications: Aspirin [Aspirin EC 81 MG] 81 mg PO DAILY 02/12/19 Oxybutynin Chloride [Ditropan Xl*] 5 mg PO BID 08/11/20 Albuterol Neb [Proventil 0.083% Neb Soln] 2.5 mg IH Q6H PRN 09/23/20 Albuterol Sulfate [Albuterol Sulfate Hfa] 1 puff IH Q6H PRN 09/23/20 Atorvastatin Calcium [Lipitor] 80 mg PO BEDTIME 09/23/20 Budesonide/Formoterol Fumarate [Symbicort 160-4.5 Mcg Inhaler] 2 puff IH BID 09/23/20 Citalopram [Celexa*] 20 tab PO BEDTIME 09/23/20 Colchicine 0.6 tab PO DAILY 09/23/20 Cyclosporine [Restasis] 0.05 % EACH EYE BID 09/23/20 Losartan Potassium [Cozaar*] 50 tab PO DAILY 09/23/20 Metoprolol Tartrate 25 tab PO BID 09/23/20 Thyroid,Pork [Manning Thyroid] 15 tab PO DAILY 09/23/20 hydroCHLOROthiazide [Hydrochlorothiazide*] 25 mg PO DAILY 09/23/20 - Past Medical/Surgical History Diabetic: No -: Depression with anxiety -: GERD -: Hypertension -: CAD S/P CABG 2020 -: Hyperlipidemia -: Asthma -: gout -: arthiritis -: tubal ligation -: Cardiac stent -: left leg sx with plate and screws Hospital Course: Glucose Patient was admitted for headache as well as substernal chest pain. EKG was unremarkable. Serial set of cardiac enzymes was normal. Her headache was felt to be due to migraine headache and resolved with medication. She was started on PPI for possible GERD contributing to chest pain. Her chest pain significantly improved. Patient will be discharged home to continue her home regimen with added Protonix. She has been advised to follow with her primary. She might benefit from an outpatient stress test Vital Signs/Physical Exam: Temp Pulse Resp BP Pulse Ox 97.6 F 80 16 146/77 H 98 11/24/21 04:00 11/24/21 05:37 11/24/21 04:00 11/24/21 05:37 11/24/21 04:00 Laboratory Data at Discharge: WBC 6.60 K/uL (4.3-10.9) D 11/24/21 05:10 Hgb 12.7 g/dL (12.0-15.0) 11/24/21 05:10 Hct 38.5 % (36.0-45.0) 11/24/21 05:10 Plt Count 160 K/uL (152-406) 11/24/21 05:10 PT 12.5 SECONDS (9.5-12.5) 11/23/21 18:16 INR 1.09 11/23/21 18:16 Sodium 138 mmol/L (136-145) 11/24/21 05:10 Potassium 3.6 mmol/L (3.5-5.1) 11/24/21 05:10 BUN 21 mg/dL (7-18) H 11/24/21 05:10 Creatinine 0.87 mg/dL (0.55-1.3) 11/24/21 05:10 Glucose 136 mg/dL (74-106) H 11/24/21 05:10 Magnesium 2.0 mg/dL (1.8-2.4) 11/23/21 18:16 Total Bilirubin 0.3 mg/dL (0.2-1.0) 11/24/21 05:10 AST 20 U/L (15-37) 11/24/21 05:10 ALT 34 U/L (12-78) 11/24/21 05:10 Alkaline Phosphatase 109 U/L (45-117) 11/24/21 05:10 Triglycerides 89 mg/dL (<150) 11/24/21 05:10 Cholesterol 170 mg/dL (<200) 11/24/21 05:10 HDL Cholesterol 46 mg/dL (40-60) 11/24/21 05:10 Cholesterol/HDL Ratio 3.70 11/24/21 05:10 Home Medications: Aspirin [Aspirin EC 81 MG] 81 mg PO DAILY 02/12/19 Oxybutynin Chloride [Ditropan Xl*] 5 mg PO BID 08/11/20 Albuterol Neb [Proventil 0.083% Neb Soln] 2.5 mg IH Q6H PRN 09/23/20 Albuterol Sulfate [Albuterol Sulfate Hfa] 1 puff IH Q6H PRN 09/23/20 Atorvastatin Calcium [Lipitor] 80 mg PO BEDTIME 09/23/20 Budesonide/Formoterol Fumarate [Symbicort 160-4.5 Mcg Inhaler] 2 puff IH BID 09/23/20 Citalopram [Celexa*] 20 tab PO BEDTIME 09/23/20 Colchicine 0.6 tab PO DAILY 09/23/20 Cyclosporine [Restasis] 0.05 % EACH EYE BID 09/23/20 Losartan Potassium [Cozaar*] 50 tab PO DAILY 09/23/20 Metoprolol Tartrate 25 tab PO BID 09/23/20 Thyroid,Pork [Manning Thyroid] 15 tab PO DAILY 09/23/20 hydroCHLOROthiazide [Hydrochlorothiazide*] 25 mg PO DAILY 09/23/20 Pantoprazole [Protonix Tab*] 40 mg PO DAILYAC #30 tab 11/24/21 New Medications: Pantoprazole [Protonix Tab*] 40 mg PO DAILYAC #30 tab Diet: ADA Activity: Ad trung Followup: NONE,NONE [Primary Care Provider] - Physician Review: Patient Assessed, Agree with Above Assessment and Plan Time spent managing pt's care (in minutes): 35
[2021-11-24 13:24] VITALS: BP 148/90; TEMP 98.5
[2021-11-24] MEDS: HYDROCODONE/APAP 5/325 MG TAB PO PRN (14:28)
--- NOTE | 2021-11-24 21:23 | CON ---
Date of Consultation: 11/24/2021 Reason For Consultation: Chest pain. History Of Present Illness: 70-year-old female, history of coronary artery disease status post CABG, history of asthma, acid reflux, hypertension, presented to the emergency room with chest pain, it is on the right side, increases with movements of chest wall. She has some headaches. There is no exe rtional chest pain. No nausea, vomiting, or shortness of breath. No other complaints. Past Medical History: As outlined above in HPI. Medications: Refer to reconciliation sheet for detailed list. Allergies: TRAMADOL. Past Surgical History: Coronary artery bypass surgery. Family History: No premature coronary artery disease or cancer. Social History: Does not smoke or drink. Does not use any drugs. Review of Systems: All systems reviewed and they were negative except as mentioned in the HPI. Physical Examination: Vital Signs: Reviewed. Head and Neck: Pupils are equal and reactive to light. Intact eye movements. No JVD. No cervical lymphadenopathy. Neck: Supple. Thyroid not enlarged. Lungs: Clear to auscultation bilaterally. No rhonchi, rales, or crackles. No accessory muscle use. Heart: Regular rate and rhythm. No extra sounds. Abdomen: Soft, nontender. Bowel sounds positive. No organomegaly. No masses or hernia. Extremities: No edema, clubbing, or cyanosis. Intact pulses. Skin: No rashes. Neurologic: Alert, awake, and oriented x3. No acute focal deficits appreciated. Lymph nodes: No c ervical or axillary lymphadenopathy. Investigations: Troponins x3 are negative. Creatinine is normal. EKG without acute specific abnorm alities. Assessment And Recommendations: Chest pain. It is reproducible on the right chest with obvious ches t wall muscles. Cardiac troponins are negative. I believe this is noncardiac and musculoskeletal in origin. No further cardiac workup is needed at this point. The patient follows with me in the offi ce on a regular basis for her coronary artery disease and I will see her as an outpatient as schedule d. SR/MODL Voice ID: [id number] Report ID: [id number]
== END 2021-11-24 14:20 | disposition home or self-care (01) ==
LOC: ER 17:55 → ERHOLD 20:11 → 2ND 20:44
PROVIDERS: ADMIT Internal Medicine; ATTEND Internal Medicine
DX: R07.9 Chest pain, unspecified (principal); I25.10 Atherosclerotic heart disease of native coronary artery without angina pectoris; G43.909 Migraine, unspecified, not intractable, without status migrainosus; I10 Essential (primary) hypertension; J45.909 Unspecified asthma, uncomplicated; K21.9 Gastro-esophageal reflux disease without esophagitis; E78.5 Hyperlipidemia, unspecified; M10.9 Gout, unspecified; F41.8 Other specified anxiety disorders; M19.90 Unspecified osteoarthritis, unspecified site; Z95.1 Presence of aortocoronary bypass graft; Z95.5 Presence of coronary angioplasty implant and graft; Z79.82 Long term (current) use of aspirin; Z88.6 Allergy status to analgesic agent; Z20.822 Contact with and (suspected) exposure to COVID-19; Z82.49 Family history of ischemic heart disease and other diseases of the circulatory system; Z83.6 Family history of other diseases of the respiratory system
CPT/HCPCS: 93005 ×2; 85025 ×2; 80048; 36415; 83735; 85610; 80061; 80076; 84443; 84484 ×3; 84439; 80053; 83880; 70450; 71045; 96375; 96374; 99284; U0003; J0360; J2765; J1200; J1650; J3010; J2405; G0378 ×3

== ENCOUNTER 2022-03-23 18:46 | Emergency (ER) | payer OTHER ==
--- OUTSIDE RECORDS SUMMARY | 2022-03-23 18:52 | XMS REPORT | Continuity of Care Document ---
:1950 Author Organization [facility] t Address [address] [place] [address] Care Team Providers Name Role Phone EVELINA GOMEZ Primary Care Physician Unavailable Celia TREJO Attending Clinician Unavailable BABAK PERES Attending Clinician Unavailable REMINGTON ONTIVEROS Attending Clinician Unavailable Zoila Attending Clinician Unavailable EVELINA GOMEZ Attending Clinician Unavailable Celia TREJO Admitting Clinician Unavailable BABAK PERES Admitting Clinician Unavailable Zoila Admitting Clinician Unavailable KT ORTA Admitting Clinician Unavailable EVELINA GOMEZ Admitting Clinician Unavailable Payers Payer Name Policy Type Policy Number Effective Date Expiration Date Josue TEJADA MEDICARE [id number] 2020 00:00:00 MEDICAID AMER[employer]OUP [id number] 2021 00:00:00 MEDICAID [place] [id number] 2018 00:00:00 [place]: [id number] 2014 IForem 00:00:00 AMMAHESH OCHOA [id number] 2019 FORMERLY [facility] - 00:00:00 STAR (MEDICAID HMO) MEDICARE A[place]: [id number] 2014 IForem - 00:00:00 C - FQHC Problems Condition Condition Condition Status Onset Resolution Last Treating Co mments Source Name Details Category Date Date Treatment Clinician Date Essential Essential Problem Active [facility] hypertensi Hypertensi 04-15 on on 00:00: Medical 00 Group Heart Heart Problem Active [place] disease Disease 04-15 00:00: Medical 00 Group Allergies, Adverse Reactions, Alerts Allergy Allergy Status Severity Reaction(s) Onset Inactive Treating Comm ents Source Name Type Date Date Clinician TRAMADOL Allergy Active [facility] 12-11 00:00: 00 Tramadol Allergy Active [place] e [facility] Social History Smoking Status Start Date Stop Date Source Never Smoker [facility] Medications This patient has [...] kg BP Diastolic 2019-05-13 00:00:00 98 mm[Hg] [facility] Height 2019-05-13 00:00:00 62 [in_i] [facility] BMI (Body Mass 2019-05-13 00:00:00 38.6 kg/m2 [facility] Index) Group BP Systolic 2019-05-13 00:00:00 170 mm[Hg] [facility] Body Weight 2019-05-13 00:00:00 211 [lb_av] [facility] BP Diastolic 2019-04-15 00:00:00 94 mm[Hg] [facility] Height 2019-04-15 00:00:00 62 [in_i] [facility] BMI (Body Mass 2019-04-15 00:00:00 37.9 kg/m2 [facility] Index) Group BP Systolic 2019-04-15 00:00:00 130 mm[Hg] [facility] Body Weight 2019-04-15 00:00:00 207 [lb_av] [facility] Procedures Procedure Date / Time Performed Performing Clinician Sourc e Carotid Stent [facility] Tubal Ligation [facility] Foot/toes Surgery [facility] Procedure Group Encounters Start End Encounter Admission Attending Care Care Encounter Source Date/Time Date/Time Type Type Clinicians Facility Department ID 2022-03-[address] [facility] [id number] 10:26:30 [facility] 2020-08-13 Inpatient UR PERES, [facility] Cardiology [id number] SLE 19:32:00 MARIA ELENA 2022-03-15 2022-03-15 Outpatient [facility] [id number] [facility] 14:38:00 23:59:00 [facility] 2022-03-15 2022-03-15 Outpatient DARCIE TREJO [facility] Surgery [id number] SLE 14:38:00 20:30:00 [facility] 2020-09-09 2020-09-09 Outpatient DARCIE ONTIVEROS [facility] [id number] SLE 00:00:00 00:00:00 BHUPENDRA 2020-08-25 2020-08-25 Outpatient [facility] [id number] [place] 02:23:00 02:23:00 [facility] 2020-05-11 2020-05-11 Outpatient [facility] [id number] [place] 12:39:00 12:39:00 [facility] 2020-04-22 2020-04-22 Outpatient [facility]L [facility]G 5199 [place] 12:17:00 12:17:00 [facility] 2019-05-13 2019-05-13 Roxy HYATT [place] - [id number] M [facility] 00:00:00 00:00:00 [facility] hernandez MD: [address] [facility] [address], [place] [address] , Ph. [phone] 2019-04-15 2019-04-15 Roxy HYATT [place] - [id number] M [facility] 00:00:00 00:00:00 Chantale Shea MD: [address] [facility] [address], [place] [address] , Ph. [phone] Results Test Description Test Time Test Comments Results Result Comments Source SARS-COV2/RT-PCR ([facility]) 2020-08-24 12:40:00 Test Item Value Reference Range Interpretation Comme nts SARS-COV2/RT-PCR (test code = 5445581) Negative Not Detected, N egative, See external report for linked test SARS-COV-2 PERFORMING LAB (test code = [facility] 3466403) Negative result for this test determines that [...] 564(g) of the Act.Fact Sheet for Healthcare Providers:https://www.WideOrbit/sites/default/files/product/documents/Fact_Shee l_FA_Arvxxcxdr_Snwm_BDSS-IkJ-8.pdfFact Sheet for Healthcare Patients:https://www.WideOrbit/sites/default/files/product/ documents/Dien_Eggrz_Vsjfjcil_Diyj_GVRE-BiY-1.pdfPerforming Laboratory:[facility], [place] [address]DSUBC METABOLIC PANEL 2020-08-24 04:37:00 Test Item Value [...] S NOT APPLICABLE FOR DIALYSIS PATIEN TS. Poll Watcher ID - EDASICBC W/PLT COUNT & AUTO [id number] 04:04:00 Test Item Value Reference Range Interpretation [...] (BEAKER) (test code = 2801) BASIC METABOLIC [id number] 10:27:00 Test Item Value Reference Range Interpretation [...] S NOT APPLICABLE FOR DIALYSIS PATIEN TS. Poll Watcher ID - EDASICBC W/PLT COUNT & AUTO [id number] 10:07:00 Test Item Value Reference Range Interpretation [...] (BEAKER) (test code = 2801) BASIC METABOLIC [id number] 10:29:00 Test Item Value Reference Range Interpretation [...] S NOT APPLICABLE FOR DIALYSIS PATIEN TS. Poll Watcher ID - MARTINA CLACTIC ACID, [id number] 06:55:00 Test Item Value Reference Range Interpretation Comments LACTATE BLOOD ARTERIAL (2) 1.5 mmol/L 0.5-2.2 (BEAKER) (test code = 2874) Poll Watcher ID - DBCBC W/PLT COUNT & AUTO [id number] 06:47:00 Test Item Value Reference Range Interpretation [...] PERCENT (BEAKER) (test code = 2801) CALCIUM, [id number] 06:43:00 Test Item Value Reference Range Interpretation Comments CALCIUM IONIZED (BEAKER) (test 1.12 mmol/L 1.12-1.27 code = 698) PH, BLOOD (BEAKER) (test code = 7.41 1810) RAD, CHEST, 1 VIEW, NON [id number] 06:22:00while patient is intubated or has chest tubes.Reason for exam:->Status post CV SurgeryShould thisbe performed at the bedside?->Yes [facility] : 1950 Sex: [...] Santosh Grullon MDReport Verified Date/Time: 08/20/2020 06:22:53 BASIC METABOLIC [id number] 15:13:00 Test Item Value Reference Range Interpretation [...] S NOT APPLICABLE FOR DIALYSIS PATIEN TS. Poll Watcher ID Vivian DE SANTIAGO [id number] 15:13:00 Test Item Value Reference Range Interpretation Comments MAGNESIUM (BEAKER) (test code = 2.0 mg/dL 1.6-2.6 627) Poll Watcher ID - JONNATHAN [id number] 15:13:00 Test Item Value Reference Range Interpretation Comments PHOSPHORUS (BEAKER) (test code = 2.2 mg/dL 2.3-4.7 L 604) Poll Watcher ID - JONNATHAN FLACTIC ACID, [id number] 15:01:00 Test Item Value Reference Range Interpretation Comments LACTATE BLOOD VENOUS 3.11 mmol/L 0.50-2.20 H Specime n slightly (2) (BEAKER) (test hemolyzed code = 2102) Poll Watcher ID - JONNATHAN FCBC W/PLT COUNT & AUTO [id number] 14:57:00 Test Item Value Reference Range Interpretation [...] PERCENT (BEAKER) (test code = 2801) CALCIUM, [id number] 14:51:00 Test Item Value Reference Range Interpretation Comments CALCIUM IONIZED (BEAKER) (test 1.12 mmol/L 1.12-1.27 code = 698) PH, BLOOD (BEAKER) (test code = 7.30 1810) RAD, CHEST, 1 VIEW, NON [id number] 02:59:00while patient is intubated or has chest tubes.Reason for exam:->Status post CV SurgeryShould thisbe performed at the bedside?->Yes [facility] : 1950 Sex: [...] Stable contours.Additional findings: None. Signed: Bhupendra Avila MDReport Verified Date/Time: 08/19/2020 02:59:01 [id number] 06:29:00 Test Item Value Reference Range Interpretation Comments ACTIVATED CLOTTING TIME 92 sec : 74 -137 seconds, (MILTON) (test code = Baseli ne: TESTED AT 441) [facility] [address] [facility] [place], [facility] 30: Poll Watcher/Techni norm ID = [id number] for BHUPENDRA MENDIOLA [id number] 06:29:00 Test Item Value Reference Range Interpretation Comments ACTIVATED CLOTTING TIME 499 sec : 74 -137 seconds, (BEAKER) (test code = Baseli ne: TESTED AT 441) [address], [facility] 30: Poll Watcher/Techni norm ID = [id number] for BE BHUPENDRA DOMINGUEZ [id number] 06:29:00 Test Item Value Reference Range Interpretation Comments ACTIVATED CLOTTING TIME 555 sec : 74 -137 seconds, (BEAKER) (test code = Baseli ne: TESTED AT 441) [address], [facility] 30: Poll Watcher/Techni norm ID = [id number] for BE BHUPENDRA DOMINGUEZ [id number] 06:29:00 Test Item Value Reference Range Interpretation Comments ACTIVATED CLOTTING TIME 439 sec : 74 -137 seconds, (BEAKER) (test code = Baseli ne: TESTED AT 441) [address], [facility] 30: Poll Watcher/Techni norm ID = [id number] for BHUPENDRA MENDIOLA [id number] 06:29:00 Test Item Value Reference Range Interpretation Comments ACTIVATED CLOTTING TIME 472 sec : 74 -137 seconds, (BEAKER) (test code = Baseli ne: TESTED AT 441) [address], [facility] 30: Poll Watcher/Techni norm ID = [id number] for BHUPENDRA MENDIOLA RAD, CHEST, 1 VIEW, NON [id number] 05:19:00while patient is intubated or has chest tubes.Reason for exam:->Status post CV SurgeryShould thisbe performed at the bedside?->Yes [facility] : 1950 Sex: FFINAL REPORT [...] findings: None. Signed: Octaviano Trujillo Verified Date/Time: 08/18/202005:19:20 C METABOLIC [id number] 05:06:00 Test Item Value Reference Range Interpretation [...] S NOT APPLICABLE FOR DIALYSIS PATIEN TS. Poll Watcher ID - [id number] 05:06:00 Test Item Value Reference Range Interpretation Comments MAGNESIUM (BEAKER) (test code = 2.3 mg/dL 1.6-2.6 627) Poll Watcher ID - [id number] 05:06:00 Test Item Value Reference Range Interpretation Comments PHOSPHORUS (BEAKER) (test code = 4.1 mg/dL 2.3-4.7 604) Poll Watcher ID - EDASILACTIC ACID, [id number] 04:31:00 Test Item Value Reference Range Interpretation Comments LACTATE BLOOD 2.4 mmol/L 0.5-2.2 H Specimen sligh tly ARTERIAL (2) (BEAKER) hemoly zed (test code = 2874) Poll Watcher ID - BSCBC W/PLT COUNT & AUTO [id number] 04:27:00 Test Item Value Reference Range Interpretation [...] PERCENT (BEAKER) (test code = 2801) CALCIUM, [id number] 04:15:00 Test Item Value Reference Range Interpretation Comments CALCIUM IONIZED (BEAKER) (test 1.08 mmol/L 1.12-1.27 L code = 698) PH, BLOOD (BEAKER) (test code = 7.42 1810) BLOOD GAS, [id number] 04:15:00 Test Item Value Reference Range Interpretation [...] (BEAKER) (test code = 1819) 32.0 POCT-GLUCOSE [id number] 22:46:00 Test Item Value Reference Range Interpretation Comments POC-GLUCOSE METER 123 mg/dL 70-110 H : TESTED A T [facility] 6720 (BEAKER) (test code = [place]GELO FERREIR[place], 1538) [address]: Poll Watcher/Techni norm ID = [id number] for DIANE MCCOLLUM BASIC METABOLIC [id number] 20:41:00 Test Item Value Reference Range Interpretation [...] S NOT APPLICABLE FOR DIALYSIS PATIEN TS. Poll Watcher ID - [id number] 20:41:00 Test Item Value Reference Range Interpretation Comments MAGNESIUM (BEAKER) (test code = 1.9 mg/dL 1.6-2.6 627) Poll Watcher ID - BSLACTIC ACID, [id number] 20:37:00 Test Item Value Reference Range Interpretation Comments LACTATE BLOOD ARTERIAL (2) 1.2 mmol/L 0.5-2.2 (BEAKER) (test code = 2874) Poll Watcher ID - BSCBC W/PLT COUNT & AUTO [id number] 20:28:00 Test Item Value Reference Range Interpretation [...] (BEAKER) (test code = 2801) BLOOD GAS, [id number] 20:25:00 Test Item Value Reference Range Interpretation [...] (test code = 1819) 28.0 BLOOD GAS, [id number] 19:28:00 Test Item Value Reference Range Interpretation [...] (BEAKER) (test code = 1819) 40.0 POCT-GLUCOSE [id number] 18:18:00 Test Item Value Reference Range Interpretation Comments POC-GLUCOSE METER 123 mg/dL 70-110 H : TESTED A T [facility] 6720 (BEAKER) (test code [facility], = 1538) [address]: Poll Watcher/Techni norm ID = [id number] for RAY TO, CHRISTIMARIE POCT-GLUCOSE [id number] 17:31:00 Test Item Value Reference Range Interpretation Comments POC-GLUCOSE METER 118 mg/dL 70-110 H : TESTED A T [facility] 6720 (BEAKER) (test code [facility], = 1538) [address]: Poll Watcher/Techni norm ID = [id number] for RAY TO, CHRISTIMARIE POCT-GLUCOSE [id number] 16:22:00 Test Item Value Reference Range Interpretation Comments POC-GLUCOSE METER 103 mg/dL 70-110 : TESTED A T [facility] 6720 (BEAKER) (test code [facility], = 1538) [address]: Poll Watcher/Techni norm ID = [id number] for RAY TO, CHRISTIMARIE [id number] 15:41:00 Test Item Value Reference Range Interpretation Comments PHOSPHORUS (BEAKER) 2.7 mg/dL 2.3-4.7 Specimen slightly (test code = 604) hemolyzed Poll Watcher ID - BSPOCT-GLUCOSE [id number] 15:38:00 Test Item Value Reference Range Interpretation Comments POC-GLUCOSE METER 106 mg/dL 70-110 : TESTED A T [facility] 6720 (BEAKER) (test code [facility], = 1538) [address]: Poll Watcher/Techni norm ID = [id number] for RAY TO, ANNARIE CBC W/PLT COUNT & AUTO [id number] 14:47:00 Test Item Value Reference Range Interpretation [...] (BEAKER) (test code = 2801) BASIC METABOLIC [id number] 14:38:00 Test Item Value Reference Range Interpretation [...] S NOT APPLICABLE FOR DIALYSIS PATIEN TS. Poll Watcher BRANDON DE SANTIAGO [id number] 14:36:00 Test Item Value Reference Range Interpretation Comments MAGNESIUM (BEAKER) 1.5 mg/dL 1.6-2.6 L Specimen slightly (test code = 627) hemolyzed Poll Watcher BRANDON DE SANTIAGO FLACTIC ACID, [id number] 14:33:00 Test Item Value Reference Range Interpretation Comments LACTATE BLOOD 1.7 mmol/L 0.5-2.2 Specimen sligh tly ARTERIAL (2) (BEAKER) hemoly chaparro (test code = 2874) Poll Watcher ID - JONNATHAN CRYSTAL GAS, [id number] 14:22:00 Test Item Value Reference Range Interpretation [...] (test code = 1819) 60.0 OXYGEN SATURATION, [id number] 14:16:00 Test Item Value Reference Range Interpretation Comments O2 SATURATION (MEASURED) (BEAKER) 66.4 % (test code = 1455) RAD, CHEST, 1 VIEW, NON [id number] 14:16:00Reason for exam:->Status post CV Surgery post op day 0Should this be performed at the bedside?->Yes [facility] : 1950 Sex: [...] surgical changes.Additional findings: None. Signed: Ghanshyam Lock Verified Date/Time: 08/17/2020 14:16:32 Reading Location: [facility] Reading Room POTASSIUM-STAT [id number] 12:38:00 Test Item Value Reference Range Interpretation Comments POTASSIUM (BEAKER) (test code = 5.0 meq/L 3.6-5.5 379) BLOOD GAS, [id number] 12:38:00 Test Item Value Reference Range Interpretation [...] (BEAKER) (test code = 1819) 60.0 GLUCOSE-STAT [id number] 12:38:00 Test Item Value Reference Range Interpretation Comments GLUCOSE RANDOM (BEAKER) (test code 206 mg/dL 70-110 H = 652) CALCIUM, [id number] 12:38:00 Test Item Value Reference Range Interpretation Comments CALCIUM IONIZED (BEAKER) (test 1.11 mmol/L 1.12-1.27 L code = 698) PH, BLOOD (BEAKER) (test code = 7.41 1810) SODIUM NA-STAT [id number] 12:38:00 Test Item Value Reference Range Interpretation Comments SODIUM (BEAKER) (test code = 381) 133 meq/L 136-145 L HGB/HCT (H&H) - STAT [id number] 12:38:00 Test Item Value Reference Range Interpretation Comments HEMOGLOBIN (BEAKER) (test code = 8.4 GM/DL 12.0-15.0 L 410) HEMATOCRIT (BEAKER) (test code = 25.0 % 36.0-45.0 L 411) POTASSIUM-STAT [id number] 11:52:00 Test Item Value Reference Range Interpretation Comments POTASSIUM (BEAKER) (test code = 6.2 meq/L 3.6-5.5 HH 379) BLOOD GAS, [id number] 11:51:00 Test Item Value Reference Range Interpretation [...] (test code = 1819) 65.0 SODIUM NA-STAT [id number] 11:51:00 Test Item Value Reference Range Interpretation Comments SODIUM (BEAKER) (test code = 381) 132 meq/L 136-145 L GLUCOSE-STAT [id number] 11:51:00 Test Item Value Reference Range Interpretation Comments GLUCOSE RANDOM (BEAKER) (test code 238 mg/dL 70-110 H = 652) HGB/HCT (H&H) - STAT [id number] 11:51:00 Test Item Value Reference Range Interpretation Comments HEMOGLOBIN (BEAKER) (test code = 7.8 GM/DL 12.0-15.0 L 410) HEMATOCRIT (BEAKER) (test code = 23.0 % 36.0-45.0 L 411) BLOOD GAS, [id number] 10:48:00 Test Item Value Reference Range Interpretation [...] (BEAKER) (test code = 1819) 60.0 POTASSIUM-STAT [id number] 10:48:00 Test Item Value Reference Range Interpretation Comments POTASSIUM (BEAKER) (test code = 5.4 meq/L 3.6-5.5 379) BLOOD GAS, [id number] 10:48:00 Test Item Value Reference Range Interpretation [...] (test code = 1819) 60.0 SODIUM NA-STAT [id number] 10:48:00 Test Item Value Reference Range Interpretation Comments SODIUM (BEAKER) (test code = 381) 131 meq/L 136-145 L GLUCOSE-STAT [id number] 10:48:00 Test Item Value Reference Range Interpretation Comments GLUCOSE RANDOM (BEAKER) (test code 208 mg/dL 70-110 H = 652) HGB/HCT (H&H) - STAT [id number] 10:48:00 Test Item Value Reference Range Interpretation Comments HEMOGLOBIN (BEAKER) (test code = 7.7 GM/DL 12.0-15.0 L 410) HEMATOCRIT (BEAKER) (test code = 23.0 % 36.0-45.0 L 411) BLOOD GAS, [id number] 08:25:00 Test Item Value Reference Range Interpretation [...] (BEAKER) (test code = 1819) 90.0 GLUCOSE-STAT [id number] 08:25:00 Test Item Value Reference Range Interpretation Comments GLUCOSE RANDOM (BEAKER) (test code 127 mg/dL 70-110 H = 652) SODIUM NA-STAT [id number] 08:24:00 Test Item Value Reference Range Interpretation Comments SODIUM (BEAKER) (test code = 381) 136 meq/L 136-145 POTASSIUM-STAT [id number] 08:24:00 Test Item Value Reference Range Interpretation Comments POTASSIUM (BEAKER) (test code = 4.3 meq/L 3.6-5.5 379) HGB/HCT (H&H) - STAT [id number] 08:24:00 Test Item Value Reference Range Interpretation Comments HEMOGLOBIN (BEAKER) (test code = 12.6 GM/DL 12.0-15.0 410) HEMATOCRIT (BEAKER) (test code = 37.0 % 36.0-45.0 411) HEMOGLOBIN [id number] 22:12:00 Test Item Value Reference Range Interpretation Comments HEMOGLOBIN A1C (BEAKER) (test code = 5.8 % 4.3-6.1 368) [id number] 22:02:00 Test Item Value Reference Range Interpretation Comments MAGNESIUM (BEAKER) 1.7 mg/dL 1.6-2.6 Specimen slightly (test code = 627) hemolyzed Poll Watcher [facility] FCOMPREHENSIVE METABOLIC [id number] 22:02:00 Test Item Value Reference Range Interpretation [...] S NOT APPLICABLE FOR DIALYSIS PATIEN TS. Poll Watcher ID Vivian DE SANTIAGO FLIPID [id number] 22:02:00 Test Item Value Reference Range Interpretation [...] Borderline 130-159 High 160-189 Very High >=190 Poll Watcher ID Vivian DE SANTIAGO [id number] 21:49:00 Test Item Value Reference Range Interpretation Comments PARTIAL THROMBOPLASTIN TIME 31.5 seconds 22.5-36.0 (BEAKER) (test code = 760) PROTHROMBIN [id number] 21:48:00 Test Item Value Reference Range Interpretation [...] mechanical heart valves.CBC W/PLT COUNT & AUTO [id number] 21:43:00 Test Item Value Reference Range Interpretation [...] 2801) SARS-COV2/RT-PCR ([facility])2020-08-14 20:18:00 Test Item Value Reference Range Interpretation Comments SARS-COV2/RT-PCR (test Negative Not Detected, Negative, code = 1653081) See external report for linked test SARS-COV-2 PERFORMING LAB [facility] (test code = 5653714) Negative result for this test determines that [...] the Bourne SARS-CoV-2 assay.Fact Sheet for Healthcare Providers:https://www.molecular.bourne/luiz/ ZJ_FJBS-EpV-9_GNY_Tvlp_Kknpv_89-222056.pdfFact Sheet for Healthcare Patients:https://www.Bubble & Balm.ab madiha/luiz/DE_JCKM-AhS-7_Jydrfvp_Aszr_Udnkz_IO_79-015092D1.pdfPerforming Laboratory:[place] [address] [place] [address] BASIC METABOLIC [id number] 06:00:00 Test Item Value Reference Range Interpretation [...] S NOT APPLICABLE FOR DIALYSIS PATIEN TS. Poll Watcher ID - [id number] 06:00:00 Test Item Value Reference Range Interpretation Comments MAGNESIUM (BEAKER) (test code = 1.7 mg/dL 1.6-2.6 627) Poll Watcher ID - EDASIHEPATIC FUNCTION [id number] 06:00:00 Test Item Value Reference Range Interpretation [...] (test code = 24 U/L 6-55 347) Poll Watcher ID - EDASIPROTHROMBIN [id number] 05:25:00 Test Item Value Reference Range Interpretation [...] mechanical heart valves.CBC W/PLT COUNT & AUTO [id number] 05:13:00 Test Item Value Reference Range Interpretation [...] (test code = 2801) CT, BRAIN, WITHOUT [id number] 04:33:00Unlisted Reason for Exam - Click Yes and Enter Reason Below->No [facility] : 1950 Sex: [...] Bhupendra Avila MDReport Verified Date/Time: 08/14/2020 04:33:35 Thyroid Stimulating [id number] 22:54:49 Test Item Value Reference Range Interpretation Comments TSH (test code = TSH) 1.940 mIU/mL 0.270-4.200 Comprehensive Metabolic [id number] 22:34:40 Test Item Value Reference Range Interpretation [...] = A/G 1.4 ratio N Ratio) Lipid [id number] 22:34:40 Test Item Value Reference Range Interpretation Comments Cholesterol Total 212 mg/dL 0-200 H RISK OF HE ART (test code = DISEASEPublishe d by Cholesterol Total) [employer] Farhana lyte Optimal Borderl ine [...] LDL/HDL Ratio=L DL Calc/HDL Chol Comprehensive Metabolic [id number] 22:34:40 Test Item Value Reference Range Interpretation [...] National Kidney Foundation, http://nkdep.ni h.gov Comprehensive Metabolic [id number] 22:34:40 Test Item Value Reference Range Interpretation [...] by the National Kidney Foundation, http://nkdep.ni h.gov [id number] 21:47:04 Test Item Value Reference Range Interpretation [...] code = Normal Normal Plt Estimation) Automated [id number] 21:28:33 Test Item Value Reference Range Interpretation Comments Neutro Auto (test code = Neutro 59.6 % 36.0-70.0 Auto) Lymph Auto (test code = Lymph Auto) 29.8 % 12.0-44.0 Lanier Auto (test code = Lanier Auto) 8.2 % 0.0-11.0 Eos, Auto (test code = Eos, Auto) 1.8 % 0.0-7.0 Basophil Auto (test code = Basophil 0.4 % 0.0-2.0 Auto) Neutro Absolute (test code = Neutro 3.1 x10 1.6-7.4 Absolute) Lymph Absolute (test code = Lymph 1.53 x10 .50-4.60 Absolute) Lanier Absolute (test code = Lanier .42 x10 .00-1.20 Absolute) Eos Absolute (test code = Eos 0.09 x10 0.00-0.74 Absolute) Baso Absolute (test code = Baso 0.02 x10 0.00-0.21 Absolute) IG [id number] 21:28:33 Test Item Value Reference Range Interpretation Comments IG (test code = IG) 0.2 % 0.0-5.0 IG Abs (test code = IG Abs) 0 x10 N Complete Blood Count with [id number] 21:28:32 Test Item Value Reference Range Interpretation [...] 11 % N Complete Blood Count with [id number] 21:28:32 Test Item Value Reference Range Interpretation [...] IPF) 11 % N pap, LB + [id number] 00:00:00 Test Item Value Reference Range Interpretation Comments HPV type-detect 3.0 by next gen not detected sequencing (reflex to HPV-16 risk assessment status) (test code = HPV type-detect 3.0 by next gen sequencing (reflex to HPV-16 risk assessment status)) General categories normal [interpretation] of Cervical or vaginal smear or scraping by Cyto stain (test code = 01876-2) [facility] [#/volume] in [id number] 00:00:00 Test Item Value Reference Range Interpretation [...] code = pseudomonas aeruginosa by real-time PCR) [facility]inal[facility] macro (dipstick) panel - [id number] 10:21:00 Test Item Value Reference Range Interpretation Comments Leukocytes (test code = Leukocytes) Trace Nitrite (test code = Nitrite) negative Urobilinogen (test code = 1 Urobilinogen) Protein (test code = Protein) 30 pH (test code = pH) 5.5 Blood (test code = Blood) Negative Specific [place] (test code = 1.030 Specific [place]) Ketone (test code = Ketone) Negative Bilirubin (test code = Bilirubin) Negative Glucose (test code = Glucose) Negative Appearance (test code = Appearance) Clear Color (test code = Color) Yellow [facility] macro (dipstick) panel - [id number] 10:21:00 Test Item Value Reference Range Interpretation Comments Leukocytes (test code = Leukocytes) Trace Nitrite (test code = Nitrite) negative Urobilinogen (test code = 1 Urobilinogen) Protein (test code = Protein) 30 pH (test code = pH) 5.5 Blood (test code = Blood) Negative Specific [place] (test code = 1.030 Specific [place]) Ketone (test code = Ketone) Negative Bilirubin (test code = Bilirubin) Negative Glucose (test code = Glucose) Negative Appearance (test code = Appearance) Clear Color (test code = Color) Yellow [facility] pathology [id number] 09:00:00 Test Item Value Reference Range Interpretation Comments Surgical pathology see separate pathology study (test code = report. 10638-4) [facility] [id number] 12:33:00 Test Item Value Reference Range Interpretation Comments POC-GLUCOSE METER 131 mg/dL 70-110 H TESTED AT [facility] [address] ([facility]) (test code [address] [facility] [place] = 1538) [address] URINE [id number] 07:56:00 Test Item Value Reference Range Interpretation Comments CULTURE ([facility]) (test ESCHERICHIA COLI A 2 0-29,000 [...] = 47) <10,000 col/mL skin floraHEPATIC FUNCTION [id number] 06:05:00 Test Item Value Reference Range Interpretation Comments TOTAL PROTEIN (AKER) (test code = 7.1 gm/dL 6.0-8.5 770) ALBUMIN ([facility]) (test code = 1145) 3.9 g/dL 3.5-5.0 BILIRUBIN TOTAL (BEAKER) (test code 0.4 mg/dL 0.1-1.2 = 377) BILIRUBIN DIRECT (AKER) (test 0.2 mg/dL 0.0-0.4 code = 706) ALKALINE PHOSPHATASE (BEAKER) (test 98 U/L 30-115 code = 346) AST (SGOT) (BEAKER) (test code = 19 U/L 5-40 353) ALT (SGPT) (AKER) (test code = 36 U/L 5-50 347) [id number] 05:47:00 Test Item Value Reference Range Interpretation [...] for patients with mechanical heart valves.BASIC METABOLIC [id number] 05:46:00 Test Item Value Reference Range Interpretation [...] S NOT APPLICABLE FOR DIALYSIS PATIEN TS. [id number] 05:43:00 Test Item Value Reference Range Interpretation Comments PHOSPHORUS (BEAKER) (test code = 2.6 mg/dL 2.5-4.5 604) [id number] 05:38:00 Test Item Value Reference Range Interpretation Comments MAGNESIUM (BEAKER) (test code = 2.0 mg/dL 1.5-3.0 627) CBC W/PLT COUNT & AUTO [id number] 05:30:00 Test Item Value Reference Range Interpretation [...] PERCENT (BEAKER) (test code = 2801) CALCIUM, [id number] 05:06:00 Test Item Value Reference Range Interpretation Comments CALCIUM IONIZED (BEAKER) (test 1.18 mmol/L 1.12-1.27 code = 698) PH, BLOOD (BEAKER) (test code = 7.45 1810) [id number] 05:21:00 Test Item Value Reference Range Interpretation Comments PHOSPHORUS (BEAKER) (test code = 1.8 mg/dL 2.5-4.5 L 604) CALCIUM, [id number] 05:20:00 Test Item Value Reference Range Interpretation Comments CALCIUM IONIZED (BEAKER) (test 0.92 mmol/L 1.12-1.27 L code = 698) PH, BLOOD (BEAKER) (test code = 7.42 1810) BASIC METABOLIC [id number] 05:18:00 Test Item Value Reference Range Interpretation [...] APPLICABLE FOR DIALYSIS PATIEN TS. HEPATIC FUNCTION [id number] 05:16:00 Test Item Value Reference Range Interpretation [...] (test code = 28 U/L 5-50 347) [id number] 05:09:00 Test Item Value Reference Range Interpretation [...] is 2.5-3.5 for patients with mechanical heart valves.[id number] 05:07:00 Test Item Value Reference Range Interpretation Comments MAGNESIUM ([place]) (test code = 1.2 mg/dL 1.5-3.0 L 627) TROPONIN [id number] 15:48:00 Test Item Value Reference Range Interpretation [...] acidosis, acute neurological disease, and persistent tachyarrhythmia.HEMOGLOBIN [id number] 10:08:00 Test Item Value Reference Range Interpretation Comments HEMOGLOBIN A1C ([place]) (test code = 6.1 % 4.3-6.1 368) CT, CHEST WITH IV CONTRAST- PE TEST [id number] 09:48:00FINAL REPORT CT of the chest, pulmonary [...] Finch Verified Date/Time: 12/11/2018 09:48:10 Reading Location: [facility] C013X Ortho Consult Reading Room RAD, CHEST, [...] Rodriguez Verified Date/Time: 12/11/2018 09:10:32 Reading Location: [facility] Radiology Reading Room COMPREHENSIVE METABOLIC PANEL 2018-12-11 [...] NOT APPLICABLE FOR DIALYSIS PATIEN TS. TROPONIN [id number] 07:24:00 Test Item Value Reference Range Interpretation [...] acidosis, acute neurological disease, and persistent tachyarrhythmia.LIPID [id number] 07:23:00 Test Item Value Reference Range Interpretation [...] 100-129 Borderline 130-159 High 160-189 Very High [id number] 07:15:00 Test Item Value Reference Range Interpretation Comments MAGNESIUM (BEAKER) (test code = 2.0 mg/dL 1.5-3.0 627) CBC W/PLT COUNT & AUTO [id number] 07:00:00 Test Item Value Reference Range Interpretation [...]
[2022-03-23] MEDS ORDERED: ONDANSETRON 4 MG/2 ML VIAL ONE (20:02)
[2022-03-23] MEDS ORDERED: FENTANYL CITR 100 MCG/2 ML ONE (20:02)
[2022-03-23 20:29] LABS: Absolute Lymphocytes (CBC) 2.2 K/uL (0.7-4.9); Hematocrit 39.8 % (36.0-45.0); Lymphocytes % 30.3 % (15.3-44.8); MPV 10.3 fL (7.6-11.3); RBC Red Blood Cell Count 4.54 M/uL (3.86-4.86)
[2022-03-23 20:44] LABS: Albumin 3.4 g/dL (3.4-5.0); Bilirubin Total 0.3 mg/dL (0.2-1.0); Potassium 3.8 mmol/L (3.5-5.1); Protein, Total 7.2 g/dL (6.4-8.2)
--- NOTE | 2022-03-23 21:45 | RAD REPORT ---
EXAM DESCRIPTION: CTAbdomen Pelvis W Contrast - 03/23/2022 9:35 pm CLINICAL HISTORY: post surgical abdominal pain COMPARISON: Abdomen Pelvis W Contrast dated 02/15/2016Abdomen Pelvis W Contrast dated 02/15/2016; Abdomen Pelvis Wo Contrast dated 10/10/2020 TECHNIQUE: CT of the abdomen and pelvis was performed with contrast. All CT scans are performed using dose optimization technique as appropriate and may include automated exposure control or mA/KV adjustment according to patient size. FINDINGS: Lower chest: Coronary artery calcifications. Liver: Mildly nodular liver configuration. Biliary: Cholecystectomy no biliary ductal dilatation. Stomach: No significant focal abnormality. Duodenum: No significant focal abnormality. Pancreas: No significant abnormality. Spleen: No significant abnormality. Adrenal: No suspicious lesions. Kidney/ureter: No hydronephrosis. No renal calculi. Retroperitoneum: No retroperitoneal adenopathy. Vascular: Ectasia of the descending thoracic aorta. Bowel: Normal appendix. No bowel obstruction.. Peritoneum: No ascites or free air. Bladder: Grossly unremarkable. Reproductive: Calcified fibroids. Bones: No acute fracture. Similar slight superior endplate deformity at L4. Other: Mild stranding in the anterior abdominal wall likely related to recent surgery. No fluid colle ctions identified. IMPRESSION: No acute intra-abdominal or pelvic finding. Normal appendix. Postoperative changes in th e abdominal wall and cholecystectomy but no evidence of complicating features.
--- NOTE | 2022-03-23 22:11 | ER ---
Nurse's Notes [facility] Name: Cole Cadena Age: 71 yrs Sex: Female : 1950 Arrival Date: 03/23/2022 Time: 18:50 Bed 5 Private MD: Luis Alberto Rangel H Diagnosis: Post surgical abdominal pain Presentation: 03/23 19:17 Chief complaint: Patient states: Reports abdominal surgery here at facility on 03/15/22, lp1 transferred to [facility] and gallbladder removed on 03/17/22; Patient concerned about surgical sites on abdomen, states she has been short of breath since surgery. Coronavirus screen: At this time, the client does not indicate any symptoms associated with coronavirus-19. Ebola Screen: No symptoms or risks identified at this time. Initial Sepsis Screen: Does the patient meet any 2 criteria? No. Patient's initial sepsis screen is negative. Does the patient have a suspected source of infection? No. Patient's initial sepsis screen is negative. Risk Assessment: Do you want to hurt yourself or someone else? Patient reports no desire to harm self or others. Onset of symptoms was March 23, 2022. 19:17 Method Of Arrival: Wheelchair lp1 19:17 Acuity: DYLAN 3 lp1 Triage Assessment: 22:32 General: Appears in no apparent distress. Behavior is calm, cooperative, appropriate tw5 for age. Historical: - Allergies: 19:23 Tramadol HCl; lp1 - Home Meds: 19:23 amlodipine 10 mg tab 1 tab once daily for Hypertension [Active]; aspirin 81 mg Oral tab lp1 [Active]; Hydrochlorothiazide Oral [Active]; Hydrocodone-Acetaminophen Oral 1 cap twice a day [Active]; lisinopril 40 mg Oral tab 1 tab once daily [Active]; omeprazole 20 mg Oral cpDR 1 cap once daily for Gastroesophageal reflux [Active]; - PMHx: 19:23 Anxiety; Asthma; Depression; GERD; Gout; Hypertension; lp1 - PSHx: 19:23 Ankle; bypass; Cholecystectomy; lp1 - Immunization history:: Adult Immunizations up to date. - Social history:: Smoking status: Patient denies any tobacco usage or history of. Screenin:41 Abuse screen: Denies threats or abuse. Denies injuries from another. Nutritional tw5 screening: No deficits noted. Tuberculosis screening: No symptoms or risk factors identified. Fall Risk Secondary diagnosis (15 points). Assessment: 19:41 Pain: Complains of pain in epigastric area and right upper quadrant Pain currently is 8 tw5 out of 10 on a pain scale. Neuro: Level of Consciousness is awake, alert, obeys commands, Oriented to person, place, time, situation. Cardiovascular: Heart tones S1 S2 present. Respiratory: Airway is patent Trachea midline Respiratory effort is even, unlabored. GI: Bowel sounds present X 4 quads. Abdomen is tender to palpation in epigastric area and right upper quadrant. 21:35 Reassessment: Patient appears in no apparent distress at this time. No changes from lg3 previously documented assessment. Patient and/or family updated on plan of care and expected duration. Pain level reassessed. Patient is alert, oriented x 3, equal unlabored respirations, skin warm/dry/pink. 22:32 Reassessment: Patient states feeling better. Patient states symptoms have improved. tw5 General: Reports. Vital Signs: 19:17 BP 156 / 97; Pulse 85; Resp 18; Temp 98.8(O); Pulse Ox 98% on R/A; Weight 90.26 kg (R); lp1 Height 5 ft. 2 in. (157.48 cm); Pain 8/10; 19:41 BP 153 / 90; Pulse 71; Resp 18; Pulse Ox 98% on R/A; Pain 8/10; tw5 20:13 Pain 7/10; tw5 21:35 BP 155 / 92; Pulse 73; Resp 17 S; Pulse Ox 99% on R/A; lg3 22:32 Pain 6/10; tw5 19:17 Body Mass Index 36.40 (90.26 kg, 157.48 cm) lp1 ED Course: 18:50 Patient arrived in ED. mr 18:51 Luis Alberto Rangel DO is Private Physician. mr 19:23 Triage completed. lp1 19:24 Arm band placed on left wrist. lp1 19:32 Pb Oconnor PA is PHCP. jmm 19:33 Fabian Arriaza MD is Attending Physician. jmm 19:35 Avril Weber is Primary Nurse. tw5 19:41 Patient has correct armband on for positive identification. Placed in gown. Bed in low tw5 position. Call light in reach. Side rails up X 1. Pulse ox on. NIBP on. Door closed. Warm blanket given. Pillow given. Head of bed elevated. 19:41 No provider procedures requiring assistance completed. tw5 20:04 Inserted saline lock: 22 gauge in left antecubital area, using aseptic technique. Blood tw5 collected. 20:05 CBC with Diff Sent. tw5 20:05 CMP Sent. tw5 20:05 Lipase Sent. tw5 21:37 CT Abd/Pelvis - IV Contrast Only In Process Unspecified. EDMS 22:09 Luis Alberto Rangel DO is Referral Physician. jmm 22:32 IV discontinued, intact, bleeding controlled, No redness/swelling at site. Pressure tw5 dressing applied. Administered Medications: 20:06 Drug: fentaNYL (PF) 25 mcg Route: IVP; Site: left antecubital; tw5 20:13 Follow up: Pain 7/10 Adult; Response: No adverse reaction; Pain is decreased; RASS: tw5 Alert and Calm (0) 20:06 Drug: Zofran (Ondansetron) 4 mg Route: IVP; Site: left antecubital; tw5 20:14 Follow up: Response: No adverse reaction tw5 Medication: 19:24 VIS not applicable for this client. lp1 Outcome: 22:10 Discharge ordered by . jm 22:32 Discharged to home with family. tw5 22:32 Condition: good 22:32 Discharge instructions given to patient, Instructed on discharge instructions, follow up and referral plans. Demonstrated understanding of instructions, follow-up care, medications, Prescriptions given X 1. 22:34 Patient left the ED. tw5 Signatures: Dispatcher [employer] EDMS Pb Oconnor PA PA jmm Rivera, Mary mr Isabel Guerra, RN RN lp1 Yu Dailey, ASHA RN lg3 Avril Weber tw5
--- NOTE | 2022-03-23 22:11 | EDPHYS ---
Physician Documentation [facility] Name: Cole Cadena Age: 71 yrs Sex: Female : 1950 Arrival Date: 03/23/2022 Time: 18:50 Bed 5 Private MD: Luis Alberto Rangel H ED Physician Fabian Arriaza HPI: 03/23 19:42 This 71 yrs old Black Female presents to ER via Wheelchair with complaints of Abdominal jmm Pain, Abd Bruising. 19:42 The patient presents with abdominal pain in the epigastric area. Onset: The jmm symptoms/episode began/occurred gradually. The symptoms do not radiate. Associated signs and symptoms: Pertinent positives:. The symptoms are described as achy, sharp. This is a 71 year old female s/p cholecystectomy that presents to the ED with complaints of epigastric abdominal pain which has been ongoing along with bruising. patient states pain has been constant. Denies fever. . Historical: - Allergies: 19:23 Tramadol HCl; lp1 - Home Meds: 19:23 amlodipine 10 mg tab 1 tab once daily for Hypertension [Active]; aspirin 81 mg Oral tab lp1 [Active]; Hydrochlorothiazide Oral [Active]; Hydrocodone-Acetaminophen Oral 1 cap twice a day [Active]; lisinopril 40 mg Oral tab 1 tab once daily [Active]; omeprazole 20 mg Oral cpDR 1 cap once daily for Gastroesophageal reflux [Active]; - PMHx: 19:23 Anxiety; Asthma; Depression; GERD; Gout; Hypertension; lp1 - PSHx: 19:23 Ankle; bypass; Cholecystectomy; lp1 - Immunization history:: Adult Immunizations up to date. - Social history:: Smoking status: Patient denies any tobacco usage or history of. ROS: 19:42 Constitutional: Negative for fever, chills, and weight loss, Cardiovascular: Negative jmm for chest pain, palpitations, and edema, Respiratory: Negative for shortness of breath, cough, wheezing, and pleuritic chest pain. 19:42 Abdomen/GI: Positive for abdominal pain. 19:42 All other systems are negative. Exam: 19:42 Constitutional: This is a well developed, well nourished patient who is awake, alert, jmm and in no acute distress. Head/Face: atraumatic. Eyes: EOMI, no conjunctival erythema appreciated ENT: Moist Mucus Membranes Neck: Trachea midline, Supple Chest/axilla: Normal chest wall appearance and motion. Cardiovascular: Regular rate and rhythm. No edema appreciated Respiratory: Normal respirations, no respiratory distress appreciated 19:42 Abdomen/GI: Inspection: abdomen appears normal, Bowel sounds: normal, Palpation: soft, moderate abdominal tenderness, in the umbilical area, right upper quadrant and left upper quadrant. 19:42 Skin: incision sites appear normal. no purulent drainage or erythema appreciated. . 19:42 Neuro: Orientation: is normal, Mentation: is normal, Memory: is normal. 19:42 Psych: Behavior/mood is pleasant, cooperative. Vital Signs: 19:17 BP 156 / 97; Pulse 85; Resp 18; Temp 98.8(O); Pulse Ox 98% on R/A; Weight 90.26 kg (R); lp1 Height 5 ft. 2 in. (157.48 cm); Pain 8/10; 19:41 BP 153 / 90; Pulse 71; Resp 18; Pulse Ox 98% on R/A; Pain 8/10; tw5 20:13 Pain 7/10; tw5 21:35 BP 155 / 92; Pulse 73; Resp 17 S; Pulse Ox 99% on R/A; lg3 22:32 Pain 6/10; tw5 19:17 Body Mass Index 36.40 (90.26 kg, 157.48 cm) lp1 MDM: 19:42 Patient medically screened. abbe 22:08 Data reviewed: vital signs, nurses notes. Counseling: I had a detailed discussion with jose the patient and/or guardian regarding: the historical points, exam findings, and any diagnostic results supporting the discharge/admit diagnosis, lab results, radiology results, the need for outpatient follow up, to return to the emergency department if symptoms worsen or persist or if there are any questions or concerns that arise at home. ED course: Imaging studies are negative. Patient states feeling much better. Advised to follow up with pcp and otherwise given strict return precautions. patient understood and agrees with the plan of care. . 03/23 19:44 Order name: CBC with Diff; Complete Time: 20:35 tw5 03/23 19:44 Order name: CMP; Complete Time: 20:53 tw5 03/23 19:44 Order name: Lipase; Complete Time: 20:53 tw5 06/16 19:44 Order name: CT Abd/Pelvis - IV Contrast Only; Complete Time: 21:53 03/23 19:44 Order name: IV Saline Lock; Complete Time: 20:05 03/23 19:44 Order name: Labs collected and sent; Complete Time: 20:05 03/23 22:14 Order name: Misc. Order: needs to use restroom; Complete Time: 22:32 jmm Administered Medications: 20:06 Drug: fentaNYL (PF) 25 mcg Route: IVP; Site: left antecubital; tw5 20:13 Follow up: Pain 04/16 Adult; Response: No adverse reaction; Pain is decreased; RASS: tw5 Alert and Calm (0) 20:06 Drug: Zofran (Ondansetron) 4 mg Route: IVP; Site: left antecubital; tw5 20:14 Follow up: Response: No adverse reaction tw5 Disposition: 03/24 08:38 Co-signature as Attending Physician, Fabian Arriaza MD I agree with the assessment and abbe plan of care. Disposition Summary: 03/23/22 22:10 Discharge Ordered Location: Home [facility] Condition: Stable [facility] Diagnosis - Post surgical abdominal pain [facility] Followup: jmm - With: Luis Alberto Rangel, DO - When: 2 - 3 days - Reason: Recheck today's complaints, Continuance of care, Re-evaluation by your physician Discharge Instructions: - Discharge Summary Sheet jm - Minimally Invasive Cholecystectomy, Care After jmm Forms: - Medication Reconciliation Form [facility] - Thank You Letter [facility] - Antibiotic Education [facility] - Prescription Opioid Use [facility] Prescriptions: - Tylenol-Codeine #3 300 mg-30 mg Oral - take 1 tablet by ORAL route every 4-6 hours; 20 tablet; Refills: 0, Product [facility] Selection Permitted Signatures: Dispatcher [employer] Fabian Xiong MD MD cha Mickail, Joel, PA PA jmm Pena, Laura, RN RN Avril Mercado tw5
[2022-03-23 23:19] VITALS: TEMP 98.8
[2022-03-23 23:26] VITALS: BP 155/92; O2SAT 99
== END 2022-03-23 22:34 | disposition home or self-care (01) ==
LOC: ER 18:46
DX: G89.18 Other acute postprocedural pain (principal); Z90.49 Acquired absence of other specified parts of digestive tract; I10 Essential (primary) hypertension; F41.9 Anxiety disorder, unspecified; F32.A Depression, unspecified; Z88.5 Allergy status to narcotic agent
CPT/HCPCS: 85025; 36415; 83690; 80053; 74177; 96375; 96374; 99284; Q9967; J3010; J2405

== ENCOUNTER 2023-03-17 22:14 | Emergency (ER) | payer OTHER ==
--- OUTSIDE RECORDS SUMMARY | 2023-03-17 22:20 | XMS REPORT | Continuity of Care Document ---
:[address] [facility] t Address [address] [facility] [address] [place] [address] Care Team Providers Name Role Phone SYLVESTER GOMEZ Primary Care Physician Unavailable KRISHNA PEARSON Attending Clinician Unavailable MARIA ELENA PERES Attending Clinician Unavailable PRABHA Attending Clinician Unavailable Krishna Pearson MD Attending Clinician John Louise Attending Clinician Enmanuel Navas MD Attending Clinician BHUPENDRA ONTIVEROS Attending Clinician Unavailable Zoila Attending Clinician Unavailable SYLVESTER GOMEZ Attending Clinician Unavailable KRISHNA PEARSON Admitting Clinician Unavailable MARIA ELENA PERES Admitting Clinician Unavailable PRABHA Admitting Clinician Unavailable Zoila Admitting Clinician Unavailable DAVID ORTA Admitting Clinician Unavailable SYLVESTER GOMEZ Admitting Clinician Unavailable Payers Payer Name Policy Type Policy Number Effective Date Expiration Date Josue TEJADA MEDICARE [id number] 2020 00:00:00 MEDICAID [employer] [id number] 2021 00:00:00 [place]: [id number] 2014 [email or web address] 00:00:00 AMMAHESH [place] [id number] 2019 [facility]LY [facility] CARE - 00:00:00 STAR (MEDICAID HMO) [place]IC[place] A[place]: [id number] 2014 [email or web address] - 00:00:00 RHC - FQHC Problems Condition Condition Condition Status Onset Resolution Last Treating Co mments Source Name Details Category Date Date Treatment Clinician Date S/P CABG x S/P CABG x Disease Active 2019-[address] 3 by 3 by 10-17 Ophelia Con on Con on 00:00: Me dical 08/17/2020 08/17/2020 00 Ce nter Coronary Coronary Disease Active [facility] Medical 00 Center Essential Essential Problem Active [place] hypertensi Hypertensi 04-15 da on on 00:00: Medical 00 Group Heart Heart Problem Active [place] disease Disease 04-15 da 00:00: Medical 00 Group NSTEMI NSTEMI Disease Recurre [facility] ([facility] 3 [facility] elevation elevation 00:00: Medi amirah myocardial myocardial 00 Ce nter infarction infarction ) ) Other Other Disease Active [facility] specified specified Luke s hypotensio hypotensio Me dical n n Center Acute Acute Disease Active [facility] blood loss blood loss Niyah kes anemia anemia [facility] Hyperglyce Hyperglyce Disease Active C [facility] maame [facility] Acute Acute Disease Active [facility] respirator respirator Niyah kes y y Medical insufficie insufficie Ce nter ncy ncy Allergies, Adverse Reactions, Alerts Allergy Allergy Status Severity Reaction(s) Onset Inactive Treating Comm ents Source Name Type Date Date Clinician Tramadol Propensi Active [facility] ty to 3-06 [facility] adverse 00:00: Medical reaction 00 Center s TRAMADOL Allergy Active [facility] 3-06 00:00: 00 Tramadol Allergy Active [place] [facility] Medical e Group Social History Social Habit Start Date Stop Date Quantity Comments Source Alcohol intake 2022-03-16 2022-03-16 Ex-drinker [facility] 00:00:00 00:00:00 (finding) Medical Center Tobacco use and 2018-12-11 2018-12-[address] [facility] exposure 00:00:00 00:00:00 non-user Medical Center Sex Assigned At [address] [facility] St Niyah silverios 00:00:00 00:00:00 Medical Center Smoking Status Start Date Stop Date Source Never smoked tobacco [facility] ke s [facility] Medications Ordered Filled Start Stop Current Ordering Indication Dosage Frequency Signature Comments Components Source Medication Medication Date Date Medication? Clinician (SIG) Name Name cycloSPORIN Yes 1[drp] Q.5D Place [address] E 6-08 drop into [facility] (RESTASIS) 20:41: both eyes Me dical 0.05 % 19 2 (two) Center ophthalmic times emulsion daily. aspirin 81 0 Yes 81mg Q24H Take [address] MG EC 6-08 by mouth [facility] tablet 20:41: daily. [facility] 19 Center thyroid, Yes 15mg QD Take [address] pork, 6-08 by mouth [facility] (ARMOUR) 15 20:41: daily. Medi amirah mg Tab 19 Center tablet hydroCHLORO 0 Yes 25mg QD Take [address] thiazide 6-08 by mouth [facility] (HYDRODIURI 20:41: daily. Medi amirah L) 25 MG 19 Center tablet cycloSPORIN Yes 1[drp] Q.5D Place [address] E 6-08 drop into [facility] (RESTASIS) 20:41: both eyes Me dical 0.05 % 19 2 (two) Center ophthalmic times emulsion daily. aspirin 81 2021-0 Yes 81mg Q24H Take [address] MG EC 6-08 by mouth [facility] tablet 20:41: daily. Medical 19 Center thyroid, Yes 15mg QD Take [address] pork, 6-08 by mouth [facility] (ARMOUR) 15 20:41: daily. Medi amirah mg Tab 19 Center tablet hydroCHLORO 0 Yes 25mg QD Take [address] thiazide 6-08 by mouth [facility] (HYDRODIURI 20:41: daily. Medi amirah L) 25 MG 19 Center tablet albuterol 2019-10 Yes 1{puff} Inhale [address] HFA 1-04 puff by [facility] (VENTOLIN 00:00: mouth via Med ical HFA) 90 00 inhaler Center mcg/actuati every 6 on inhaler (six) hours as needed. albuterol 2019-10 Yes 1{puff} Inhale [address] HFA 1-04 puff by [facility] (VENTOLIN 00:00: mouth via Med ical HFA) 90 00 inhaler Center mcg/actuati every 6 on inhaler (six) hours as needed. atorvastati 2019-10 Yes 1{tbl} QD Take [address] [facility] (LIPITOR) 0-28 tablet by Giselle es 80 MG 00:00: mouth Medical tablet 00 nightly. Center Symbicort 2019-10 Yes 2{puff} Q.5D Inhale [address] 160-4.5 0-28 puffs by [facility] mcg/actuati 00:00: mouth via M edical on inhaler 00 inhaler 2 Cent er (two) times daily. atorvastati 2019-10 Yes 1{tbl} QD Take [address] [facility] (LIPITOR) 0-28 tablet by Giselle es 80 MG 00:00: mouth Medical tablet 00 nightly. Center Symbicort 2019-10 Yes 2{puff} Q.5D Inhale [address] 160-4.5 0-28 puffs by [facility]ukes mcg/actuati 00:00: mouth via M edical on inhaler 00 inhaler 2 Cent er (two) times daily. albuterol 2019-10 Yes 2.5mg Take 2.[address] (PROVENTIL) 0-22 mg by [facility] 2.5 mg /3 00:00: nebulizati Me dical mL (0.083 00 on every 6 Cent er %) (six) nebulizer hours as solution needed. albuterol 2019-10 Yes 2.5mg Take 2.[address] (PROVENTIL) 0-22 mg by [facility]ukes 2.5 mg /3 00:00: nebulizati Me dical mL (0.083 00 on every 6 Cent er %) (six) nebulizer hours as solution needed. colchicine 2019-10 Yes .6mg QD Take 0.[address] (COLCRYS) 0-02 mg by [facility]ukes 0.6 mg 00:00: mouth Medical tablet 00 daily. [place] losartan 2019-10 Yes 1{tbl} QD Take 1 [facility] t (COZAAR) 0-02 tablet by [facility]ukes 100 MG 00:00: mouth Medical tablet 00 daily. [place] colchicine 2019-10 Yes .6mg QD Take 0.[address] (COLCRYS) 0-02 mg by [facility]ukes 0.6 mg 00:00: mouth Medical tablet 00 daily. [place] losartan 2019-10 Yes 1{tbl} QD Take 1 [facility] t (COZAAR) 0-02 tablet by [facility]ukes 100 MG 00:00: mouth Medical tablet 00 daily. Center Vital Signs Vital Name Observation Time Observation [...] kg BP Diastolic 2019-05-13 00:00:00 98 mm[Hg] [facility] Height 2019-05-13 00:00:00 62 [facility]in_i[facility] BMI (Body Mass 2019-05-13 00:00:00 38.6 kg/m2 [facility] Medical Index) Group BP Systolic 2019-05-13 00:00:00 170 mm[Hg] [facility] Body Weight 2019-05-13 00:00:00 211 [lb_av] [facility] BP Diastolic 2019-04-15 00:00:00 94 mm[Hg] [facility] Height 2019-04-15 00:00:00 62 [in_i[facility] BMI (Body Mass 2019-04-15 00:00:00 37.9 kg/m2 [facility] Medical Index) Group BP Systolic 2019-04-15 00:00:00 130 mm[Hg] [place] [facility] Body Weight 2019-04-15 00:00:00 207 [lb_av] [facility] Systolic blood 2022-03-15 20:30:00 123 mm[Hg] [facility] Diastolic blood 2022-03-15 20:30:00 82 mm[Hg] [facility] Heart rate 2022-03-15 20:30:00 86 /min [facility] Body temperature 2022-03-15 20:30:00 36.72 [facility] Respiratory rate 2022-03-15 20:30:00 14 /min [facility] Oxygen saturation in 2022-03-15 20:30:00 98 /min [facility] Arterial blood by Medical Ce nter Pulse oximetry Procedures Procedure Date / Time Performing Clinician Source Performed REPORT OF PROCEDURE - 2022-03-15 17:36:33 Krishna Pearson [facility] ENDOSCOPY [facility] [place] ERCP 2022-03-15 17:30:00 Krishna Pearson [facility] ERCP, WITH SPHINCTEROTOMY 2022-03-15 17:08:00 Krishna Pearson [facility] ERCP, WITH BALLOON SWEEP 2022-03-15 17:08:[address] [facility] OF BILE DUCTS [facility] PROCEDURE W/ C-ARM 2022-03-15 17:08:00 Krishna Pearson [facility] Car[facility]id [facility] Foot[facility]toes [facility] Plan of Care Planned Activity Planned Date Details Comments Source Future Scheduled 2023-06-[address] [facility] Test 00:00:00 (Season Ended) [code = Medic al Center INFLUENZA VACCINE (Season Ended)] Future Scheduled 2023-06-[address] [facility] Test 00:00:00 (Season Ended) [code = Medic al Center INFLUENZA VACCINE (Season Ended)] Future Scheduled 2023-03-[address] [facility] Test 00:00:00 Counseling and Medical Cente r Screening (12+) [code = Tobacco Cessation Counseling and Screening (12+)] Future Scheduled 2023-03-[address] [facility] Test 00:00:00 Counseling and Medical Cente r Screening (12+) [code = Tobacco Cessation Counseling and Screening (12+)] Future Scheduled 2022-10-[address] [facility] Test 00:00:00 (12+) [code = Medical Center DEPRESSION SCREENING (12+)] Future Scheduled 2022-10-08 FALLS RISK SCREENING [facility] Test 00:00:00 [code = FALLS RISK Medical C enter SCREENING] Future Scheduled 2022-10-[address] [facility] Test 00:00:00 (12+) [code = Medical Center DEPRESSION SCREENING (12+)] Future Scheduled 2022-10-08 FALLS RISK SCREENING [facility] Test 00:00:00 [code = FALLS RISK Medical C enter SCREENING] Future Scheduled 2020-06-[address] [facility] Test 00:00:00 WELLNESS (YEAR 2 or Medical Center FIRST YEAR if no IPPE) [code = MEDICARE ANNUAL WELLNESS (YEAR 2 or FIRST YEAR if no IPPE)] Future Scheduled 2015-12-[address] [facility] Test 00:00:00 WELLNESS (YEAR 2 or Medical Center FIRST YEAR if no IPPE) [code = MEDICARE ANNUAL WELLNESS (YEAR 2 or FIRST YEAR if no IPPE)] Future Scheduled 1968 DTAP/TDAP/TD VACCINES [facility] Test 00:00:00 (1 - Tdap) [code = Medical C enter DTAP/TDAP/TD VACCINES (1 - Tdap)] Future Scheduled 1968 SHINGLES VACCINES ([address] [facility] Test 00:00[facility]00 2) [facility] Future Scheduled 1968 DTAP/TDAP/TD VACCINES [facility] Test 00:00:00 (1 - Tdap) [code = Medical C enter DTAP/TDAP/TD VACCINES (1 - Tdap)] Future Scheduled 1968 SHINGLES VACCINES ([address] [facility] Test 00:00:00 2) [facility])] Future Scheduled 1967-12-11 HEPATITIS C SCREENING [facility] Test 00:00:00 [code = HEPATITIS C Medical Center SCREENING] Future Scheduled 1967-12-11 HEPATITIS C SCREENING [facility] Test 00:00:00 [code = HEPATITIS C Medical Center SCREENING] Future Scheduled 1955-12-11 PNEUMOCOCCAL 65+ YRS ([address] [facility] Test 00:00:00 - PCV) [code = Medical Cente r PNEUMOCOCCAL 65+ YRS (1 - PCV)] Future Scheduled 1955-12-11 PNEUMOCOCCAL 65+ YRS ([address] [facility] Test 00:00:00 - PCV) [code = Medical Cente r PNEUMOCOCCAL 65+ YRS (1 - PCV)] Future Scheduled 1951-06[birth year]12 COVID-19 VACCINE (#1) [facility] 00:00:00 [code = COVID-[address] VACCINE (#1)] Future Scheduled 1951-06-12 COVID-19 VACCINE (#1) [facility] 00:00:00 [code = COVID-[address] VACCINE (#1)] Future Scheduled 1949 Screening for malignant [facility] Test 00:00:00 neoplasm of breast Medical C enter (procedure) [code = 120781745] Future Scheduled 1949 CT Colonography (combo) [facility] Test 00:00:00 [code = CT Colonography [facility] (combo)] Future Scheduled 1949 Screening for malignant [facility] Test 00:00:00 neoplasm of colon Medical Ce nter (procedure) [code = 667751259] Future Scheduled 1949 Screening for malignant [facility] Test 00:00:00 neoplasm of colon Medical Ce nter (procedure) [code = 029625324] Future Scheduled 1950 DXA SCAN [code = DXA [facility] Test 00:00:00 SCAN] [facility] Future Scheduled 1949 Screening for malignant [facility] Test 00:00:00 neoplasm of colon Medical Ce nter (procedure) [code = 895597162] Future Scheduled 1949 Screening for malignant [facility] Test 00:00:00 neoplasm of colon Medical Ce nter (procedure) [code = 657512179] Future Scheduled 1950 Sigmoidoscopy [code = [facility] Test 00:00:00 Sigmoidoscopy] Medical Cente r Future Scheduled 1949 Screening for malignant [facility] Test 00:00:00 neoplasm of breast Medical C enter (procedure) [code = 597687477] Future Scheduled 1949 CT Colonography (combo) [facility] Test 00:00:00 [code = CT Colonography [facility] (combo)] Future Scheduled 1949 Screening for malignant [facility] Test 00:00:00 neoplasm of colon Medical Ce nter (procedure) [code = 579675354] Future Scheduled 1949 Screening for malignant [facility] Test 00:00:00 neoplasm of colon Medical Ce nter (procedure) [code = 797100863] Future Scheduled 1950 DXA SCAN [code = DXA [facility] Test 00:00:00 SCAN] [facility] Future Scheduled 1949 Screening for malignant [facility] Test 00:00:00 neoplasm of colon Medical Ce nter (procedure) [code = 732706779] Future Scheduled 1949 Screening for malignant [facility] Test 00:00:00 neoplasm of colon Medical Ce nter (procedure) [code = 855349907] Future Scheduled 1950 Sigmoidoscopy [code = [facility] Test 00:00:00 Sigmoidoscopy] Medical Cente r Encounters Start End Encounter Admission Attending Care Care Encounter Source Date/Time Date/Time Type Type Clinicians Facility Department ID 2022-03-13 Outpatient UR BRIANNA PEARSON Gastro [id number] 10:26:30 [facility] 2020-08-13 Inpatient UR PERES, [facility] Cardiology [id number] [facility] 19:32:00 MARIA ELENA 2022-05-05 2022-05-05 Outpatient JAIME_BLOSSOM [facility] 920 [place] 00:00:00 00:00:00 HN 0729 da [facility] Outre h Program 2022-03-15 2022-03-15 Outpatient [facility] [id number] [facility] 14:38:00 23:59:00 Stefano Medicin e 2022-03-15 2022-03-15 Outpatient DARCIE PEARSON [facility] Surgery [id number] SLE 14:38:00 20:30:00 [facility] 2022-03-15 2022-03-15 Hospital [facility] [id number] 14:38:00 20:30:00 Encounter [facility] 2022-03-15 2022-03-15 Surgery [facility] [id number] 16:33:00 18:03:00 [facility] 2022-03-15 2022-03-15 Anesthesia Donnajulissaosmar John [facility] [id number] 17:13:00 17:50:[address] [facility] 2020-09-09 2020-09-09 Outpatient DARCIE ONTIVEROS [facility] [id number] SLE 00:00:00 00:00:00 BHUPENDRA 2020-08-25 2020-08-25 Outpatient Rutledge_L [facility] [id number] [place] 02:23:00 02:23:00 1118 da [facility] Group 2020-05-11 2020-05-11 Outpatient Rutledge_L MMG MMG [id number] [place] 12:39:00 12:39:00 0821 da Medical Group 2020-04-22 2020-04-22 Outpatient Rutledge_L MMG MMG [id number] [place] 12:17:00 12:17:00 0716 da Medical Group 2019-05-13 2019-05-13 Roxy MMG [place] - [id number] M [place] 00:00:00 00:00:00 Max Srivastava Medical Medica david AKERS: [address] [facility] OBGYN [address], [place] [address] , Ph. [phone] 2019-04-15 2019-04-15 [facility] [place] - [id number] M caroline 00:00:00 00:00:00 Chantale Shea MD: [address] [facility] [address], [place] [address] , Ph. [phone] Results Test Description Test Time Test Comments Results Result [facility] e Comments [place], ERCP 2022-03-15 Reason for 17:30:00 exam:->abnormal imaging [facility] : 1950 Sex: F An imaging unit was utilized for this procedure. No radiologist interpretation was requested. Refer to the EMR for findings. Refer to PACS for any patient radiation dose information. SARS-COV2/RT-PCR ([facility]) 2020-08-24 12:40:00 Test Item Value Reference Range Interpretation Comme nts SARS-COV2/RT-PCR (test code = 5406778) Negative Not Detected, N egative, See external report for linked test SARS-COV-2 PERFORMING LAB (test code = [facility] 2834847) Negative result for this test determines that [...] justifying the authorization of the emergency use ofin vitro diagnostic tests for detection and/or diagnosis of COVID-19 is terminated under Section 564(b)(2) of the Act or the EUA is revoked under Section 564(g) of the Act.Fact Sheet for Healthcare Prov iders:https://www.[employer]/sites/default/files/product/documents/Fact_Sheet_HC _Bvznzuurl_Ypjo_EWRT-McC-9.pdfFact Sheet for Healthcare Patients:https://www.[employer]/sites/default/files/product/docume nts/Eguf_Okjmw_Esmsepnl_Obed_RWPP-LvI-5.pdfPerforming Laboratory:[facility] [place], [place] [address]RNXNB METABOLIC PANEL 2020-08-24 04:37:00 Test Item Value [...] S NOT APPLICABLE FOR DIALYSIS PATIEN TS. Safemaker ID - EDASICBC W/PLT COUNT & AUTO [id number] 04:04:00 Test Item Value Reference Range Interpretation [...] (BEAKER) (test code = 2801) BASIC METABOLIC [id number] 10:27:00 Test Item Value Reference Range Interpretation [...] S NOT APPLICABLE FOR DIALYSIS PATIEN TS. Safemaker ID - EDASICBC W/PLT COUNT & AUTO [id number] 10:07:00 Test Item Value Reference Range Interpretation [...] (BEAKER) (test code = 2801) BASIC METABOLIC [id number] 10:29:00 Test Item Value Reference Range Interpretation [...] S NOT APPLICABLE FOR DIALYSIS PATIEN TS. Safemaker ID - MARTINA CLACTIC ACID, [id number] 06:55:00 Test Item Value Reference Range Interpretation Comments LACTATE BLOOD ARTERIAL (2) 1.5 mmol/L 0.5-2.2 (BEAKER) (test code = 2874) Safemaker ID - DBCBC W/PLT COUNT & AUTO [id number] 06:47:00 Test Item Value Reference Range Interpretation [...] PERCENT (BEAKER) (test code = 2801) CALCIUM, [id number] 06:43:00 Test Item Value Reference Range Interpretation Comments CALCIUM IONIZED (BEAKER) (test 1.12 mmol/L 1.12-1.27 code = 698) PH, BLOOD (BEAKER) (test code = 7.41 1810) RAD, CHEST, 1 VIEW, NON [id number] 06:22:00while patient is intubated or has chest tubes.Reason for exam:->Status post CV SurgeryShould thisbe performed at the bedside?->Yes [facility] : 1950 Sex: FFINAL REPORT Chest one view. Clinical history: Status post CV Surgery Comparison: Chestradiograph 08/19/2020. Technique: A single frontal view of the chest was obtained. Findings:The patient is status post median sternotomy and cardiac surgery.The cardiomediastinal contours are stable. There are diffuse bilateral airspace opacities, mildly decreased. There are small bilateral pleural effusions. There is no pneumothorax. Signed: Santosh [place] Verified Date/Time: 08/20/2020 06:22:53 BASIC METABOLIC [id number] 15:13:00 Test Item Value Reference Range Interpretation [...] S NOT APPLICABLE FOR DIALYSIS PATIEN TS. Safemaker ID Vivian DE SANTIAGO [id number] 15:13:00 Test Item Value Reference Range Interpretation Comments MAGNESIUM (BEAKER) (test code = 2.0 mg/dL 1.6-2.6 627) Safemaker ID - JONNATHAN [id number] 15:13:00 Test Item Value Reference Range Interpretation Comments PHOSPHORUS (BEAKER) (test code = 2.2 mg/dL 2.3-4.7 L 604) Safemaker BRANDON DE SANTIAGO FLACTIC ACID, [id number] 15:01:00 Test Item Value Reference Range Interpretation Comments LACTATE BLOOD VENOUS 3.11 mmol/L 0.50-2.20 H Specime n slightly (2) (BEAKER) (test hemolyzed code = 6534) Safemaker BRANDON DE SANTIAGO FCBC W/PLT COUNT & AUTO [id number] 14:57:00 Test Item Value Reference Range Interpretation [...] PERCENT (BEAKER) (test code = 2801) CALCIUM, [id number] 14:51:00 Test Item Value Reference Range Interpretation Comments CALCIUM IONIZED (BEAKER) (test 1.12 mmol/L 1.12-1.27 code = 698) PH, BLOOD (BEAKER) (test code = 7.30 1810) RAD, CHEST, 1 VIEW, NON [id number] 02:59:00while patient is intubated or has chest tubes.Reason for exam:->Status post CV SurgeryShould thisbe performed at the bedside?->Yes [facility] 1950 Sex: FFINAL [...] Bhupendra Avila MDReport Verified Date/Time: 08/19/2020 02:59:01 [id number] 06:29:00 Test Item Value Reference Range Interpretation Comments ACTIVATED CLOTTING TIME 92 sec : 74 -137 seconds, (BEAKER) (test code = Baseli ne: TESTED AT 441) [address], [facility] 30: Safemaker/Techni norm ID = [id number] for BHUPENDRA MENDIOLA [id number] 06:29:00 Test Item Value Reference Range Interpretation Comments ACTIVATED CLOTTING TIME 499 sec : 74 -137 seconds, (BEAKER) (test code = Baseli ne: TESTED AT 441) [address], [facility] 30: Safemaker/Techni norm ID = [id number] for BHUPENDRA MENDIOLA [id number] 06:29:00 Test Item Value Reference Range Interpretation Comments ACTIVATED CLOTTING TIME 555 sec : 74 -137 seconds, (BEAKER) (test code = Baseli ne: TESTED AT 441) [address], [facility] 30: Safemaker/Techni norm ID = [id number] for BE BHUPENDRA DOMINGUEZ [id number] 06:29:00 Test Item Value Reference Range Interpretation Comments ACTIVATED CLOTTING TIME 439 sec : 74 -137 seconds, (BEAKER) (test code = Baseli ne: TESTED AT 441) [place] [address] 30: Safemaker/Techni norm ID = [id number] for BE BHUPENDRA DOMINGUEZ [id number] 06:29:00 Test Item Value Reference Range Interpretation Comments ACTIVATED CLOTTING TIME 472 sec : 74 -137 seconds, (BEAKER) (test code = Baseli ne: TESTED AT 441) [address], [facility] 30: Safemaker/Techni norm ID = [id number] for BHUPENDRA MENDIOLA RAD, CHEST, 1 VIEW, NON [id number] 05:19:00while patient is intubated or has chest tubes.Reason for exam:->Status post CV SurgeryShould thisbe performed at the bedside?->Yes [facility] : 1950 Sex: [...] versus worsening pulmonary vascular congestion. Trace bilateral medialapical pneumothoraces.Heart and mediastinum: Stable contours. Stable surgical changes.Additional findings: None. Signed: [facility]ia [facility] Verified Date/Time: 08/18/2020 05:19:20 C METABOLIC [id number] 05:06:00 Test Item Value Reference Range Interpretation [...] S NOT APPLICABLE FOR DIALYSIS PATIEN TS. Safemaker ID - [id number] 05:06:00 Test Item Value Reference Range Interpretation Comments MAGNESIUM (BEAKER) (test code = 2.3 mg/dL 1.6-2.6 627) Safemaker ID - [id number] 05:06:00 Test Item Value Reference Range Interpretation Comments PHOSPHORUS (BEAKER) (test code = 4.1 mg/dL 2.3-4.7 604) Safemaker ID - EDASILACTIC ACID, [id number] 04:31:00 Test Item Value Reference Range Interpretation Comments LACTATE BLOOD 2.4 mmol/L 0.5-2.2 H Specimen sligh tly ARTERIAL (2) (BEAKER) hemoly zed (test code = 2874) Safemaker ID - BSCBC W/PLT COUNT & AUTO [id number] 04:27:00 Test Item Value Reference Range Interpretation [...] PERCENT (BEAKER) (test code = 2801) CALCIUM, [id number] 04:15:00 Test Item Value Reference Range Interpretation Comments CALCIUM IONIZED (BEAKER) (test 1.08 mmol/L 1.12-1.27 L code = 698) PH, BLOOD (BEAKER) (test code = 7.42 1810) BLOOD GAS, [id number] 04:15:00 Test Item Value Reference Range Interpretation [...] (BEAKER) (test code = 1819) 32.0 POCT-GLUCOSE [id number] 22:46:00 Test Item Value Reference Range Interpretation Comments POC-GLUCOSE METER 123 mg/dL 70-110 H : TESTED A T [facility] 6720 (BEAKER) (test code = [place], 1538) [address]: Safemaker/Techni norm ID = [id number] for DIANE MCCOLLUM BASIC METABOLIC [id number] 20:41:00 Test Item Value Reference Range Interpretation [...] S NOT APPLICABLE FOR DIALYSIS PATIEN TS. Safemaker ID - [id number] 20:41:00 Test Item Value Reference Range Interpretation Comments MAGNESIUM (BEAKER) (test code = 1.9 mg/dL 1.6-2.6 627) Safemaker ID - BSLACTIC ACID, [id number] 20:37:00 Test Item Value Reference Range Interpretation Comments LACTATE BLOOD ARTERIAL (2) 1.2 mmol/L 0.5-2.2 (BEAKER) (test code = 2874) Safemaker ID - BSCBC W/PLT COUNT & AUTO [id number] 20:28:00 Test Item Value Reference Range Interpretation [...] (BEAKER) (test code = 2801) BLOOD GAS, [id number] 20:25:00 Test Item Value Reference Range Interpretation [...] (test code = 1819) 28.0 BLOOD GAS, [id number] 19:28:00 Test Item Value Reference Range Interpretation [...] (BEAKER) (test code = 1819) 40.0 POCT-GLUCOSE [id number] 18:18:00 Test Item Value Reference Range Interpretation Comments POC-GLUCOSE METER 123 mg/dL 70-110 H : TESTED A T [facility] 6720 (BEAKER) ([facility], = 1538) [address]: Safemaker/Techni norm ID = [id number] for RAY TO, ROSALIACAREYRIE POCT-GLUCOSE [id number] 17:31:00 Test Item Value Reference Range Interpretation Comments POC-GLUCOSE METER 118 mg/dL 70-110 H : TESTED A T [facility] 6720 (BEAKER) (test code [facility], = 1538) 10144: Safemaker/Techni norm ID = [id number] for RAY TO, CHRISTIMARIE POCT-GLUCOSE [id number] 16:22:00 Test Item Value Reference Range Interpretation Comments POC-GLUCOSE METER 103 mg/dL 70-110 : TESTED A T [facility] 6720 (BEAKER) (test code [facility], = 1538) [address]: Safemaker/Techni norm ID = [id number] for RAY TO, CHRISTIMARIE [id number] 15:41:00 Test Item Value Reference Range Interpretation Comments PHOSPHORUS (BEAKER) 2.7 mg/dL 2.3-4.7 Specimen slightly (test code = 604) hemolyzed Safemaker ID - BSPOCT-GLUCOSE [id number] 15:38:00 Test Item Value Reference Range Interpretation Comments POC-GLUCOSE METER 106 mg/dL 70-110 : TESTED A T [facility] 6720 (BEAKER) (test code [facility], = 1538) 700[address]: Safemaker/Techni norm ID = [id number] for RAY TO, CHRISTIMARIE CBC W/PLT COUNT & AUTO [id number] 14:47:00 Test Item Value Reference Range Interpretation [...] (BEAKER) (test code = 2801) BASIC METABOLIC [id number] 14:38:00 Test Item Value Reference Range Interpretation [...] S NOT APPLICABLE FOR DIALYSIS PATIEN TS. Safemaker ID - JONNATHAN [id number] 14:36:00 Test Item Value Reference Range Interpretation Comments MAGNESIUM (BEAKER) 1.5 mg/dL 1.6-2.6 L Specimen slightly (test code = 627) hemolyzed Safemaker ID - JONNATHAN FLACTIC ACID, [id number] 14:33:00 Test Item Value Reference Range Interpretation Comments LACTATE BLOOD 1.7 mmol/L 0.5-2.2 Specimen sligh tly ARTERIAL (2) (BEAKER) hemoly zed (test code = 2874) Safemaker ID - JONNATHAN FBLOOD GAS, [id number] 14:22:00 Test Item Value Reference Range Interpretation [...] (test code = 1819) 60.0 OXYGEN SATURATION, [id number] 14:16:00 Test Item Value Reference Range Interpretation Comments O2 SATURATION (MEASURED) (BEAKER) 66.4 % (test code = 1455) RAD, CHEST, 1 VIEW, NON [id number] 14:16:00Reason for exam:->Status post CV Surgery post op day 0Should this be performed at the bedside?->Yes [facility] : 1950 Sex: FFINAL REPORT RAD, CHEST, 1 VIEW, NON DEPT INDICATION: Status post CV Surgery post op day 0 COMPARISON: Prior day's exam FINDINGS: Portable frontal view of the chest. IMPRESSION: Support Lines: Right-sided central catheter tip overlies the atriocaval junction. Bilateral chest tubes. ET tube tip is 3 cm superior to the john. NG tube descends below the diaphragm. Lungs and pleura: Unchanged airspace and pleural opacities. No pneumothorax.Heart and mediastinum: Stable contours. Stable surgical changes.Additional findings: None. Signed: Omayra Lock MDReport Verified Date/Time: 08/17/2020 14:16:32 Reading Location: [facility] Radiology Reading Room POTASSIUM-STAT [id number] 12:38:00 Test Item Value Reference Range Interpretation Comments POTASSIUM (BEAKER) (test code = 5.0 meq/L 3.6-5.5 379) BLOOD GAS, [id number] 12:38:00 Test Item Value Reference Range Interpretation [...] (BEAKER) (test code = 1819) 60.0 GLUCOSE-STAT [id number] 12:38:00 Test Item Value Reference Range Interpretation Comments GLUCOSE RANDOM (BEAKER) (test code 206 mg/dL 70-110 H = 652) CALCIUM, [id number] 12:38:00 Test Item Value Reference Range Interpretation Comments CALCIUM IONIZED (BEAKER) (test 1.11 mmol/L 1.12-1.27 L code = 698) PH, BLOOD (BEAKER) (test code = 7.41 1810) SODIUM NA-STAT [id number] 12:38:00 Test Item Value Reference Range Interpretation Comments SODIUM (BEAKER) (test code = 381) 133 meq/L 136-145 L HGB/HCT (H&H) - STAT [id number] 12:38:00 Test Item Value Reference Range Interpretation Comments HEMOGLOBIN (BEAKER) (test code = 8.4 GM/DL 12.0-15.0 L 410) HEMATOCRIT (BEAKER) (test code = 25.0 % 36.0-45.0 L 411) POTASSIUM-STAT [id number] 11:52:00 Test Item Value Reference Range Interpretation Comments POTASSIUM (BEAKER) (test code = 6.2 meq/L 3.6-5.5 HH 379) BLOOD GAS, [id number] 11:51:00 Test Item Value Reference Range Interpretation [...] (test code = 1819) 65.0 SODIUM NA-STAT [id number] 11:51:00 Test Item Value Reference Range Interpretation Comments SODIUM (BEAKER) (test code = 381) 132 meq/L 136-145 L GLUCOSE-STAT [id number] 11:51:00 Test Item Value Reference Range Interpretation Comments GLUCOSE RANDOM (BEAKER) (test code 238 mg/dL 70-110 H = 652) HGB/HCT (H&H) - STAT [id number] 11:51:00 Test Item Value Reference Range Interpretation Comments HEMOGLOBIN (BEAKER) (test code = 7.8 GM/DL 12.0-15.0 L 410) HEMATOCRIT (BEAKER) (test code = 23.0 % 36.0-45.0 L 411) BLOOD GAS, [id number] 10:48:00 Test Item Value Reference Range Interpretation [...] (BEAKER) (test code = 1819) 60.0 POTASSIUM-STAT [id number] 10:48:00 Test Item Value Reference Range Interpretation Comments POTASSIUM (BEAKER) (test code = 5.4 meq/L 3.6-5.5 379) BLOOD GAS, [id number] 10:48:00 Test Item Value Reference Range Interpretation [...] (test code = 1819) 60.0 SODIUM NA-STAT [id number] 10:48:00 Test Item Value Reference Range Interpretation Comments SODIUM (BEAKER) (test code = 381) 131 meq/L 136-145 L GLUCOSE-STAT [id number] 10:48:00 Test Item Value Reference Range Interpretation Comments GLUCOSE RANDOM (BEAKER) (test code 208 mg/dL 70-110 H = 652) HGB/HCT (H&H) - STAT [id number] 10:48:00 Test Item Value Reference Range Interpretation Comments HEMOGLOBIN (BEAKER) (test code = 7.7 GM/DL 12.0-15.0 L 410) HEMATOCRIT (BEAKER) (test code = 23.0 % 36.0-45.0 L 411) BLOOD GAS, [id number] 08:25:00 Test Item Value Reference Range Interpretation [...] (BEAKER) (test code = 1819) 90.0 GLUCOSE-STAT [id number] 08:25:00 Test Item Value Reference Range Interpretation Comments GLUCOSE RANDOM (BEAKER) (test code 127 mg/dL 70-110 H = 652) SODIUM NA-STAT [id number] 08:24:00 Test Item Value Reference Range Interpretation Comments SODIUM (BEAKER) (test code = 381) 136 meq/L 136-145 POTASSIUM-STAT [id number] 08:24:00 Test Item Value Reference Range Interpretation Comments POTASSIUM (BEAKER) (test code = 4.3 meq/L 3.6-5.5 379) HGB/HCT (H&H) - STAT [id number] 08:24:00 Test Item Value Reference Range Interpretation Comments HEMOGLOBIN (BEAKER) (test code = 12.6 GM/DL 12.0-15.0 410) HEMATOCRIT (BEAKER) (test code = 37.0 % 36.0-45.0 411) HEMOGLOBIN [id number] 22:12:00 Test Item Value Reference Range Interpretation Comments HEMOGLOBIN A1C (BEAKER) (test code = 5.8 % 4.3-6.1 368) [id number] 22:02:00 Test Item Value Reference Range Interpretation Comments MAGNESIUM (BEAKER) 1.7 mg/dL 1.6-2.6 Specimen slightly (test code = 627) hemolyzed Safemaker [facility] FCOMPREHENSIVE METABOLIC [id number] 22:02:00 Test Item Value Reference Range Interpretation [...] S NOT APPLICABLE FOR DIALYSIS PATIEN TS. Safemaker ID Vivian DE SANTIAGO FLIPID [id number] 22:02:00 Test Item Value Reference Range Interpretation Comments TRIGLYCERIDES (BEAKER) 91 mg/dL Speci men slightly (test code = 540) hemolyzed CHOLESTEROL (BEAKER) 107 mg/dL Specime n slightly (test code = 631) hemolyzed HDL CHOLESTEROL (BEAKER) 31 mg/dL (test code = 976) LDL CHOLESTEROL 58 mg/dL CALCULATED (BEAKER) (test code = 633) Triglyceride Reference Range: Low Risk <150 Borderline 150-199 High Risk 200- 499 Very High Risk >=500Cholesterol Reference Range: Low Risk <200 Borderline 200-239 High Risk >240HDL Cholesterol Reference Range: Low Risk >=60 High Risk <40LDL Cholesterol Reference Range: Optimal <100 Near Optimal 100-129 Borderline 130-159 High 160-189 Very High >=190 Safemaker ID Vivian DE SANTIAGO [id number] 21:49:00 Test Item Value Reference Range Interpretation Comments PARTIAL THROMBOPLASTIN TIME 31.5 seconds 22.5-36.0 (BEAKER) (test code = 760) PROTHROMBIN [id number] 21:48:00 Test Item Value Reference Range Interpretation [...] is 2.5-3.5 for patients wiht mechanical heart valves.CBC W/PLT COUNT & AUTO [id number] 21:43:00 Test Item Value Reference Range Interpretation [...] PERCENT (BEAKER) (test code = 2801) SARS-COV2/RT-PCR ([facility])2020-08-14 20:18:00 Test Item Value Reference Range Interpretation Comments SARS-COV2/RT-PCR (test Negative Not Detected, Negative, code = 2627864) See external report for linked test SARS-COV-2 PERFORMING LAB [facility] (test code = 4981799) Negative result for this test determines that [...] justifying the authorization of the emergency use ofin vitro diagnostic tests for detection and/or diagnosis of COVID-19 is terminated under Section 564(b)(2) of the Act or the EUA is revoked under Section 564(g) of the Act.Testing was performed using the Bourne SARS-CoV-2 assay.Fact Sheet for Healthcare Providers:https://www.[employer]/luiz/RT_SAR U-NbP-4_GCG_Xtcx_Mxfig_70-911550.pdfFact Sheet for Healthcare Patients:https://www.[employer]/s al/HQ_RTTJ-ZjD-7_Fihzlnn_Sxyq_Kywug_DT_95-169506T3.pdfPerforming Laboratory:[facility] [place] [address] BASIC METABOLIC [id number] 06:00:00 Test Item Value Reference Range Interpretation [...] S NOT APPLICABLE FOR DIALYSIS PATIEN TS. Safemaker ID - [id number] 06:00:00 Test Item Value Reference Range Interpretation Comments MAGNESIUM (BEAKER) (test code = 1.7 mg/dL 1.6-2.6 627) Safemaker ID - EDASIHEPATIC FUNCTION [id number] 06:00:00 Test Item Value Reference Range Interpretation [...] (test code = 24 U/L 6-55 347) Safemaker ID - EDASIPROTHROMBIN TIME/[id number] 05:25:00 Test Item Value Reference Range Interpretation [...] is 2.5-3.5 for patients wiht mechanical heart valves.CBC W/PLT COUNT & AUTO [id number] 05:13:00 Test Item Value Reference Range Interpretation [...] (test code = 2801) CT, BRAIN, WITHOUT [id number] 04:33:00Unlisted Reason for Exam - Click Yes and Enter Reason Below->No [facility] : 1950 Sex: FFINAL REPORT EXAM: CT, BRAIN, WITHOUT CONTRAST CLINICAL INDICATION: Head trauma. TECHNIQUE: CT images from skull base to vertex without IV contrast. This exam was performed according to the departmental dose optimization program which includes automated exposure control, adjustment of themA and/or kV according to the patient size, and/or use of an iterative reconstruction technique. COMP ARISON: None. FINDINGS: Parenchyma: No evidence of acute [...] for further characterization. Signed: Bhupendra Avila [facility]PITALeport Verified Date/Time: 08/14/2020 04:33:35 Thyroid Stimulating [id number] 22:54:49 Test Item Value Reference Range Interpretation Comments TSH (test code = TSH) 1.940 mIU/mL 0.270-4.200 Comprehensive Metabolic [id number] 22:34:40 Test Item Value Reference Range Interpretation [...] = A/G 1.4 ratio N Ratio) Lipid [id number] 22:34:40 Test Item Value Reference Range Interpretation Comments Cholesterol Total 212 mg/dL 0-200 H RISK OF HE ART (test code = DISEASEPublishe d by Cholesterol Total) [employer] Farhana lyte Optimal Borderl ine Increased RiskC HOL <200 200-239 >240TRI G <150 150-199 >200HDL Male >60 <40HDL Fema le >60 <50LDL <100 130 -159 >160LDL Near op [facility] is 100-129 Triglycerides (test 157 mg/dL 9-200 [...] LDL/HDL Ratio=L DL Calc/HDL Chol Comprehensive Metabolic [id number] 22:34:40 Test Item Value Reference Range Interpretation [...] National Kidney Foundation, http://nkdep.ni h.gov Comprehensive Metabolic [id number] 22:34:40 Test Item Value Reference Range Interpretation [...] ag e have not been validated by [facility] MDRD study and should be interpreted wit [...] ag e have not been validated by [facility] MDRD study and should be interpreted wit h caution. eGFR R esult Interpretation: eGFR > or = 60 is in the Normal RangeeGF R < 60 may mean kid keena diseaseeGFR < 1 5 may mean kidney failure Rang es recommended by the National Kidney Foundation, http://nkdep.ni h.gov [id number] 21:47:04 Test Item Value Reference Range Interpretation [...] code = Normal Normal Plt Estimation) Automated [id number] 21:28:33 Test Item Value Reference Range Interpretation Comments Neutro Auto (test code = Neutro 59.6 % 36.0-70.0 Auto) Lymph Auto (test code = Lymph Auto) 29.8 % 12.0-44.0 [place]azoo Auto (test code = [place]azoo Auto) 8.2 % 0.0-11.0 Eos, Auto (test code = Eos, Auto) 1.8 % 0.0-7.0 Basophil Auto (test code = Basophil 0.4 % 0.0-2.0 Auto) Neutro Absolute (test code = Neutro 3.1 x10 1.6-7.4 Absolute) Lymph Absolute (test code = Lymph 1.53 x10 .50-4.60 Absolute) [place] Absolute (test code = [place] .42 x10 .00-1.20 Absolute) Eos Absolute (test code = Eos 0.09 x10 0.00-0.74 Absolute) Baso Absolute (test code = Baso 0.02 x10 0.00-0.21 Absolute) IG [id number] 21:28:33 Test Item Value Reference Range Interpretation Comments IG (test code = IG) 0.2 % 0.0-5.0 IG Abs (test code = IG Abs) 0 x10 N Complete Blood Count with [id number] 21:28:32 Test Item Value Reference Range Interpretation [...] 11 % N Complete Blood Count with [id number] 21:28:32 Test Item Value Reference Range Interpretation [...] IPF) 11 % N pap, LB + [id number] 00:00:00 Test Item Value Reference Range Interpretation Comments HPV type-detect 3.0 by next gen not detected sequencing (reflex to HPV-16 risk assessment status) (test code = HPV type-detect 3.0 by next gen sequencing (reflex to HPV-16 risk assessment status)) General categories normal [interpretation] of Cervical or vaginal smear or scraping by Cyto stain (test code = 39501-8) [facility] CenterCol[facility] count [#/volume] in [id number] 00:00:00 Test Item Value Reference Range Interpretation [...] code = pseudomonas aeruginosa by real-time PCR) [facility] CenterUrinalysis macro (dipstick) panel - [id number] 10:21:00 Test Item Value Reference Range Interpretation Comments Leukocytes (test code = Leukocytes) Trace Nitrite (test code = Nitrite) negative Urobilinogen (test code = 1 Urobilinogen) Protein (test code = Protein) 30 pH (test code = pH) 5.5 Blood (test code = Blood) Negative Specific Rozel (test code = 1.030 Specific Rozel) Ketone (test code = Ketone) Negative Bilirubin (test code = Bilirubin) Negative Glucose (test code = Glucose) Negative Appearance (test code = Appearance) Clear Color (test code = Color) Yellow [facility] CenterUrinalysis macro (dipstick) panel - [id number] 10:21:00 Test Item Value Reference Range Interpretation Comments Leukocytes (test code = Leukocytes) Trace Nitrite (test code = Nitrite) negative Urobilinogen (test code = 1 Urobilinogen) Protein (test code = Protein) 30 pH (test code = pH) 5.5 Blood (test code = Blood) Negative Specific Rozel (test code = 1.030 Specific Rozel) Ketone (test code = Ketone) Negative Bilirubin (test code = Bilirubin) Negative Glucose (test code = Glucose) Negative Appearance (test code = Appearance) Clear Color (test code = Color) Yellow [facility] [id number] 09:00:00 Test Item Value Reference Range Interpretation Comments Surgical pathology see separate pathology study (test code = report. 94418-4) [facility] CenterPOCT-GLUCOSE [id number] 12:33:00 Test Item Value Reference Range Interpretation Comments POC-GLUCOSE METER 131 mg/dL 70-110 H TESTED AT [address] ([facility]) (test code [address] [facility] [place] = 1538) [address] URINE [id number] 07:56:00 Test Item Value Reference Range Interpretation Comments CULTURE ([facility]) (test ESCHERICHIA COLI A 2 0-29,000 [...] = 47) <10,000 col/mL skin floraHEPATIC FUNCTION [id number] 06:05:00 Test Item Value Reference Range Interpretation [...] (test code = 36 U/L 5-50 347) [id number] 05:47:00 Test Item Value Reference Range Interpretation Comments PROTIME (BEAKER) (test code = 759) 11.8 sec 9.3-12.0 INR (BEAKER) (test code = 370) 1.1 <=5.9 PARTIAL THROMBOPLASTIN TIME (BEAKER) 35.0 sec 23.0-35.0 (test code = 760) RECOMMENDED COUMADIN/WARFARIN INR THERAPY RANGESSTANDARD DOSE: 2.0 - 3.0 Includes: PROPHYLAXIS for [...] RANGESSTANDARD DOSE: 2.0 - 3.0 Includes: PROPHYLAXIS for venous thrombosis, systemic embolization; TREATMENT for venous thrombosis and/or pulmonary embolus.HIGH RISK: Target INR is 2.5-3.5 for patients with mechanical heart valves.BASIC METABOLIC [id number] 05:46:00 Test Item Value Reference Range Interpretation [...] S NOT APPLICABLE FOR DIALYSIS PATIEN TS. [id number] 05:43:00 Test Item Value Reference Range Interpretation Comments PHOSPHORUS (BEAKER) (test code = 2.6 mg/dL 2.5-4.5 604) [id number] 05:38:00 Test Item Value Reference Range Interpretation Comments MAGNESIUM (BEAKER) (test code = 2.0 mg/dL 1.5-3.0 627) CBC W/PLT COUNT & AUTO [id number] 05:30:00 Test Item Value Reference Range Interpretation [...] PERCENT (BEAKER) (test code = 2801) CALCIUM, [id number] 05:06:00 Test Item Value Reference Range Interpretation Comments CALCIUM IONIZED (BEAKER) (test 1.18 mmol/L 1.12-1.27 code = 698) PH, BLOOD (BEAKER) (test code = 7.45 1810) [id number] 05:21:00 Test Item Value Reference Range Interpretation Comments PHOSPHORUS (BEAKER) (test code = 1.8 mg/dL 2.5-4.5 L 604) CALCIUM, [id number] 05:20:00 Test Item Value Reference Range Interpretation Comments CALCIUM IONIZED (BEAKER) (test 0.92 mmol/L 1.12-1.27 L code = 698) PH, BLOOD (BEAKER) (test code = 7.42 1810) BASIC METABOLIC [id number] 05:18:00 Test Item Value Reference Range Interpretation [...] APPLICABLE FOR DIALYSIS PATIEN TS. HEPATIC FUNCTION [id number] 05:16:00 Test Item Value Reference Range Interpretation [...] (test code = 28 U/L 5-50 347) [id number] 05:09:00 Test Item Value Reference Range Interpretation Comments PROTIME (BEAKER) (test code = 759) 13.1 sec 9.3-12.0 H INR (BEAKER) (test code = 370) 1.2 <=5.9 PARTIAL THROMBOPLASTIN TIME (BEAKER) 36.7 sec 23.0-35.0 H (test code = 760) RECOMMENDED COUMADIN/WARFARIN INR THERAPY RANGESSTANDARD DOSE: 2.0 - 3.0 Includes: PROPHYLAXIS for [...] RANGESSTANDARD DOSE: 2.0 - 3.0 Includes: PROPHYLAXIS for venous thrombosis, systemic embolization; TREATMENT for venous thrombosis and/or pulmonary embolus.HIGH RISK: Target INR is 2.5-3.5 for patients with mechanical heart valves.[id number] 05:07:00 Test Item Value Reference Range Interpretation Comments MAGNESIUM (BEAKER) (test code = 1.2 mg/dL 1.5-3.0 L 627) TROPONIN [id number] 15:48:00 Test Item Value Reference Range Interpretation [...] acidosis, acute neurological disease, and persistent tachyarrhythmia.HEMOGLOBIN [id number] 10:08:00 Test Item Value Reference Range Interpretation Comments HEMOGLOBIN A1C (BEAKER) (test code = 6.1 % 4.3-6.1 368) CT, CHEST WITH IV CONTRAST- PE TEST [id number] 09:48:00FINAL REPORT CT of the chest, pulmonary [...] to patient's size and/or use of iterative reconstr uctive technique. Comparison Film: None Discussion: No filling defects are identified within the pulmonary arteries to suggest acute pulmonary embolism. Visualized thyroid gland is unremarkable. No supraclavicular, axillary mediastinal or hilar lymphadenopathy. Heart and pericardium are unremarkable. T here is minimal atelectasis or scarring at the lung bases. No mass or consolidation is identified. No pleural effusion. The central airways are patent, no bronchiectasis, or bronchial wall thickening. Partially imaged upper abdomen is unremarkable. Osseous structures demonstrate mild degenerative jain es. Impression: No PE is identified. No acute process identified in the thorax. Signed: Osmany Finch Verified Date/Time: 12/11/2018 09:48:10 Reading Location: [address] Ortho Consult Reading Room RAD, CHEST, 1 VIEW, NON [id number] 09:10:00Reason for exam:->PULM EDEMAShould this be performed at the bedside?->YesFINAL REPORT Clinical History: PULM EDEMA Comparison Study: None Findings: The heart and lungs are within normal limits. The pleural spaces are clear. No significant bony or soft tissue abnormalities are seen. Impression: No active cardiopulmonary disease. Signed: Tico Rodriguez Verified Date/Time: 12/11/2018 09:10:32 Reading Location: [facility] Radiology Reading Room COMPREHENSIVE METABOLIC [id number] 07:24:00 Test Item Value Reference Range Interpretation [...] NOT APPLICABLE FOR DIALYSIS PATIEN TS. TROPONIN [id number] 07:24:00 Test Item Value Reference Range Interpretation [...] acidosis, acute neurological disease, and persistent tachyarrhythmia.LIPID [id number] 07:23:00 Test Item Value Reference Range Interpretation Comments TRIGLYCERIDES (BEAKER) (test code = 95 mg/dL 540) CHOLESTEROL (BEAKER) (test code = 180 mg/dL 631) HDL CHOLESTEROL (BEAKER) (test code 50 mg/dL = 976) LDL CHOLESTEROL CALCULATED (BEAKER) 111 mg/dL (test code = 633) Triglyceride Reference Range: Low Risk <150 Borderline 150-199 High Risk 200- 499 Very High Risk >=500Cholesterol Reference Range: Low Risk <200 Borderline 200-239 High Risk >240HDL Cholesterol Reference Range: Low Risk >=60 High Risk <40LDL Cholesterol Reference Range: Optimal <100 Near Optimal 100-129 Borderline 130-159 High 160-189 Very High >=190MAGNESIUM 2018-12-11 07:15:00 Test Item Value Reference Range Interpretation Comments MAGNESIUM (BEAKER) (test code = 2.0 mg/dL 1.5-3.0 627) CBC W/PLT COUNT & AUTO [id number] 07:00:00 Test Item Value Reference Range Interpretation [...] % 0-0 PERCENT (BEAKER) (test code = 7771)
[2023-03-17 23:25] LABS: Absolute Lymphocytes (CBC) 1.8 K/uL (0.7-4.9); Lymphocytes % 22.9 % (15.3-44.8); MCV 90.5 fL (80-100); MPV 8.7 fL (7.6-11.3); RBC Red Blood Cell Count 4.75 M/uL (3.86-4.86)
[2023-03-17] MEDS ORDERED: KETOROLAC 30 MG/ML INJ ONE (23:29)
[2023-03-17] MEDS ORDERED: NA CHLORIDE 0.9% 500 ML ONE (23:29)
[2023-03-17 23:45] LABS: ALT/SGPT 118 U/L (13-56); AST/SGOT 49 U/L (15-37); Albumin 3.5 g/dL (3.4-5.0); Alkaline Phosphatase 138 U/L (45-117); BUN Blood Urea Nitrogen 31 mg/dL (7-18); Bicarbonate 28 mEq/L (21-32); Bilirubin Total 0.3 mg/dL (0.2-1.0); Glomerular Filtration Rate 43 ml/min (=/>90); Glucose Level 137 mg/dL (74-106); Protein, Total 7.5 g/dL (6.4-8.2); Sodium Level 139 mEq/L (136-145); Troponin High Sensitivity 7.7 pg/mL (<58.9)
[2023-03-17 23:49] LABS: Bilirubin Direct < 0.1 mg/dL (0-0.2); Bilirubin Indirect, Calculated ND mg/dL (0.2-0.8)
--- NOTE | 2023-03-18 00:30 | ER ---
Nurse's Notes [facility] Name: Cole Cadena Age: 72 yrs Sex: Female : 1950 Arrival Date: 03/17/2023 Time: 22:14 Bed 15 Private MD: Diagnosis: Dehydration;Acute kidney failure, unspecified Presentation: 03/17 22:42 Chief complaint: Patient states: headache, cough, congestion, chest pain, chills and lg3 body aches starting today. Coronavirus screen: Client denies travel out of the [place] in the last 14 days. Client presents with at least one sign or symptom that may indicate coronavirus-19. Standard/surgical mask placed on the client. Ebola Screen: No symptoms or risks identified at this time. Initial Sepsis Screen: Does the patient meet any 2 criteria? No. Patient's initial sepsis screen is negative. Does the patient have a suspected source of infection? No. Patient's initial sepsis screen is negative. Risk Assessment: Do you want to hurt yourself or someone else? Patient reports no desire to harm self or others. Onset of symptoms was March 17, 2023. 22:42 Method Of Arrival: Wheelchair lg3 22:42 Acuity: DYLAN 3 lg3 Triage Assessment: 22:44 General: Appears in no apparent distress. uncomfortable, Behavior is calm, cooperative. lg3 Pain: Complains of pain in head, chest and back. EENT: No deficits noted. No signs and/or symptoms were reported regarding the EENT system. Neuro: No deficits noted. Bergman Agitation-Sedation Scale (RASS): 0 - Alert and Calm Level of Consciousness is awake, alert, obeys commands, Oriented to person, place, time, situation. Cardiovascular: Reports chest pain. Respiratory: No deficits noted. Reports cough that is Airway is patent Respiratory effort is even, unlabored, Respiratory pattern is regular, symmetrical. GI: No deficits noted. No signs and/or symptoms were reported involving the gastrointestinal system. Abdomen is round non-distended, obese. : No deficits noted. No signs and/or symptoms were reported regarding the genitourinary system. Derm: No deficits noted. No signs and/or symptoms reported regarding the dermatologic system. Skin is intact, is healthy with good turgor, Skin is dry, Skin is normal, Skin temperature is warm. Musculoskeletal: No deficits noted. Circulation, motion, and sensation intact. Range of motion: intact in all extremities, Reports generalized body aches. Historical: - Allergies: 22:44 Tramadol HCl; lg3 - PMHx: 22:44 Anxiety; Asthma; Depression; GERD; Gout; Hypertension; lg3 - PSHx: 22:44 Ankle; bypass; Cholecystectomy; lg3 - Immunization history:: Adult Immunizations up to date, Client reports receiving the 2nd dose of the Covid vaccine, Flu vaccine is not up to date. - Social history:: Smoking status: Patient denies any tobacco usage or history of. Patient/guardian denies using alcohol, street drugs. Screenin:47 [facility] ED Fall Risk Assessment (Adult) History of falling in the last 3 months, lg3 including since admission No falls in past 3 months (0 pts). Abuse screen: Denies threats or abuse. Denies injuries from another. Nutritional screening: No deficits noted. Tuberculosis screening: No symptoms or risk factors identified. Assessment: 22:46 General: see triage assessment . lg3 22:47 Pain: Pain does not radiate. Pain began 1 day ago. lg3 23:56 Reassessment: Patient appears in no apparent distress at this time. No changes from lg3 previously documented assessment. Patient and/or family updated on plan of care and expected duration. Pain level reassessed. Patient is alert, oriented x 3, equal unlabored respirations, skin warm/dry/pink. 03/18 01:16 Reassessment: Patient appears in no apparent distress at this time. No changes from lg3 previously documented assessment. Patient and/or family updated on plan of care and expected duration. Pain level reassessed. Patient is alert, oriented x 3, equal unlabored respirations, skin warm/dry/pink. Patient states symptoms have improved. Vital Signs: 03/17 22:42 BP 151 / 89; Pulse 75; Resp 17 S; Temp 98(O); Pulse Ox 97% on R/A; Weight 90.72 kg (R); lg3 Height 5 ft. 2 in. (R); 23:56 BP 157 / 89; Pulse 74; Resp 17 S; Pulse Ox 97% on R/A; lg3 03/18 01:16 BP 151 / 84; Pulse 71; Resp 16 S; Pulse Ox 98% on R/A; lg3 03/17 22:42 Body Mass Index 36.58 (90.72 kg, 157.48 cm) lg3 ED Course: 03/17 22:17 Patient arrived in ED. bp1 22:32 Magdy Almonte MD is Attending Physician. bs3 22:38 Yu Dailey, ASHA is Primary Nurse. lg3 22:44 Triage completed. lg3 22:44 Arm band placed on right wrist. lg3 22:47 Patient has correct armband on for positive identification. Placed in gown. Bed in low lg3 position. Call light in reach. Side rails up X 1. Client placed on continuous cardiac and pulse oximetry monitoring. NIBP monitoring applied. orthopedic dentist on. Door closed. Noise minimized. Warm blanket given. 22:47 Patient maintains SpO2 saturation greater than 95% on room air. lg3 23:14 Basic Metabolic Panel Sent. lg3 23:14 CBC with Diff Sent. lg3 23:15 LFT's Sent. lg3 23:15 Magnesium Sent. lg3 23:15 Troponin HS Sent. lg3 23:15 Inserted saline lock: 22 gauge in left antecubital area, using aseptic technique. Blood lg3 collected. 23:20 XRAY Chest (1 view) In Process Unspecified. EDMS 23:34 CT Head Brain wo Cont In Process Unspecified. EDMS 06 01:16 No provider procedures requiring assistance completed. IV discontinued, intact, lg3 bleeding controlled, No redness/swelling at site. Pressure dressing applied. Administered Medications: 03/17 23:34 Drug: NS 0.9% IV 500 ml Route: IV; Rate: bolus; Site: left antecubital; lg3 03/18 01:02 Follow up: Response: No adverse reaction; IV Status: Completed infusion; IV Intake: lg3 500ml 03/17 23:34 Drug: Ketorolac IVP 15 mg Route: IVP; Site: left antecubital; lg3 03/18 01:01 Follow up: Response: No adverse reaction lg3 Medication: 01:17 VIS not applicable for this client. lg3 Intake: 01:02 IV: 500ml; Total: 500ml. lg3 Outcome: 00:30 Discharge ordered by . bs3 01:16 Discharged to home ambulatory, with family. lg3 01:16 Condition: stable 01:16 Discharge instructions given to patient, Instructed on discharge instructions, follow up and referral plans. Demonstrated understanding of instructions, follow-up care. 01:17 Patient left the ED. lg3 Signatures: Dispatcher [employer] Yu Fisher RN RN lg3 Kelsey Andrade Brandon, MD MD bs3
--- NOTE | 2023-03-18 00:31 | EDPHYS ---
Physician Documentation [facility] Name: Cole Cadena Age: 72 yrs Sex: Female : 1950 Arrival Date: 03/17/2023 Time: 22:14 Bed 15 Private MD: ED Physician Magdy Almonte HPI: 03/18 00:21 This 72 yrs old Black Female presents to ER via Wheelchair with complaints of Chest bs3 Pain > 30 y/o, Headache, Nausea. 00:21 72-year-old female history of anxiety, asthma, depression, hypertension presents with bs3 cough shortness of breath headache nausea and generally feeling unwell for approximately 1 day she feels cold but no fevers she denies any abdominal pain or any urinary symptoms her symptoms are moderate intensity she has not taken anything for the. Historical: - Allergies: 03/17 22:44 Tramadol HCl; lg3 - PMHx: 22:44 Anxiety; Asthma; Depression; GERD; Gout; Hypertension; lg3 - PSHx: 22:44 Ankle; bypass; Cholecystectomy; lg3 - Immunization history:: Adult Immunizations up to date, Client reports receiving the 2nd dose of the Covid vaccine, Flu vaccine is not up to date. - Social history:: Smoking status: Patient denies any tobacco usage or history of. Patient/guardian denies using alcohol, street drugs. ROS: 03/18 00:21 Constitutional: Negative for fever, chills bs3 All other systems are negative. Exam: 00:21 Constitutional: This is a well developed, well nourished patient who is awake, alert, bs3 and in no acute distress. Head/Face: Normocephalic, atraumatic. Eyes: Pupils equal round and reactive to light, extra-ocular motions intact. Lids and lashes normal. ENT: mmm, no posterior phyarngeal erythema Neck: Trachea midline, no thyromegaly, no neck stiffness Chest/axilla: Normal chest wall appearance and motion. Nontender with no deformity. No lesions are appreciated. Cardiovascular: Regular rate and rhythm with a normal S1 and S2. symmetric pulses in upper extremities Respiratory: Lungs have equal breath sounds bilaterally, clear to auscultation, no respiratory distress Abdomen/GI: Soft, non-tender, no rebound or guarding MS/ Extremity: Pulses equal, no cyanosis. Neurovascular intact. Full, normal range of motion. Neuro: Awake and alert, GCS 15, oriented to person, place, time, and situation. Cranial nerves II-XII grossly intact. Motor strength 5/5 in all extremities. Sensory grossly intact. Psych: Awake, alert, with orientation to person, place and time. Behavior, mood, and affect are within normal limits. 00:21 ECG ECG is normal sinus rhythm at [address] elevations or depressions QTc is 397 as interpreted by myself Vital Signs: 03/17 22:42 BP 151 / 89; Pulse 75; Resp 17 S; Temp 98(O); Pulse Ox 97% on R/A; Weight 90.72 kg (R); lg3 Height 5 ft. 2 in. (R); 23:56 BP 157 / 89; Pulse 74; Resp 17 S; Pulse Ox 97% on R/A; lg3 03/18 01:16 BP 151 / 84; Pulse 71; Resp 16 S; Pulse Ox 98% on R/A; 3 03/17 22:42 Body Mass Index 36.58 (90.72 kg, 157.48 cm) lg3 MDM: 03/17 22:32 Patient medically screened. bs3 03/18 00:21 Data reviewed: vital signs, nurses notes. ED course: Patient with vague complaints of bs3 cough malaise headache she may have a viral syndrome her symptoms are not consistent with subarachnoid hemorrhage but will rule out a mass we will treat headache we will check labs and reassess given that duration of symptoms will rule out acute coronary syndrome with single troponin she is not hypoxic or tachypneic not consistent with PE and she has no risk factors for pulmonary embolism Labs notable for elevated LFTs and elevated creatinine from prior advised to follow-up with her primary care doctor. 00:29 ED course: I discussed the results with the patient and her family at bedside patient bs3 given a copy of her labs she has no urinary symptoms I advised her to follow-up with Dr. Bañuelos her primary care doctor this week for further work-up. 03/17 22:55 Order name: Basic Metabolic Panel; Complete Time: 23:54 bs3 03/17 22:55 Order name: CBC with Diff; Complete Time: 23:39 3 03/17 22:55 Order name: LFT's; Complete Time: 23:54 bs3 03/17 22:55 Order name: Magnesium; Complete Time: 23:54 bs3 03/17 22:55 Order name: Troponin HS; Complete Time: 23:54 bs3 03/17 22:55 Order name: XRAY Chest (1 view) bs3 03/17 22:55 Order name: CT Head Brain wo Cont bs3 03/17 22:55 Order name: EKG; Complete Time: 22:55 bs3 03/17 22:55 Order name: Cardiac monitoring; Complete Time: 22:56 bs3 03/17 22:55 Order name: EKG - Nurse/Tech; Complete Time: 22:56 bs3 03/17 22:55 Order name: IV Saline Lock; Complete Time: 23:22 bs3 03/17 22:55 Order name: Labs collected and sent; Complete Time: 23:22 bs3 03/17 22:55 Order name: O2 Per Protocol; Complete Time: 22:56 bs3 03/17 22:55 Order name: O2 Sat Monitoring; Complete Time: 22:56 bs3 Administered Medications: 03/17 23:34 Drug: NS 0.9% IV 500 ml Route: IV; Rate: bolus; Site: left antecubital; [facility] 03/18 01:02 Follow up: Response: No adverse reaction; IV Status: Completed infusion; IV Intake: lg3 500ml 03/17 23:34 Drug: Ketorolac IVP 15 mg Route: IVP; Site: left antecubital; [facility] 03/18 01:01 Follow up: Response: No adverse reaction 3 Disposition Summary: 03/18/23 00:30 Discharge Ordered Location: Home bs3 Problem: new bs3 Symptoms: have improved bs3 Condition: Stable bs3 Diagnosis - Dehydration bs3 - Acute kidney failure, unspecified bs3 Followup: bs3 - With: Private Physician - When: 2 - 3 days - Reason: Re-evaluation by your physician Discharge Instructions: - Discharge Summary Sheet bs3 - Dehydration, Adult bs3 - Acute Kidney Injury, Adult bs3 Forms: - Medication Reconciliation Form bs3 - Thank You Letter bs3 - Antibiotic Education bs3 - Prescription Opioid Use bs3 Signatures: Dispatcher [employer] EDMS Zachary Soares, ADOLFO GUERINP-Cla1 Yu Dailey RN RN lg3 Almonte, Magdy, MD MD bs3
[2023-03-18 01:52] VITALS: TEMP 98
[2023-03-18 01:55] VITALS: BP 151/84; O2SAT 98
--- NOTE | 2023-03-19 12:02 | RAD REPORT ---
EXAM DESCRIPTION: CT - Head Brain Wo Cont - 03/18/2023 6:38 am CLINICAL HISTORY: 72 years Female CONFUSED COMPARISON: None TECHNIQUE: Images were obtained in axial, sagittal, and coronal planes. This exam was performed according to our departmental dose-optimization program which includes use of Automated Exposure Control, adjustment of the mA and/or kV according to patient size and/or use of i terative reconstruction technique. FINDINGS: Ventricular system is age-appropriate in size. Moderate prominence of the cortical sulci. Marked periventricular decreased attenuation consistent with more remote microvascular ischemic jain e. 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 No abnormal areas of increased attenuation seen. No extra-axial fluid collections noted. No evidence for skull fracture. Symmetric aeration mastoid air cells bilaterally. Unremarkable parana luiz sinuses. IMPRESSION: No acute intracranial abnormality. No evidence for hemorrhage, mass lesion, or large acu te infarction. Marked more remote microvascular ischemic change. Electronically signed by: Mar Licea MD 03/17/2023 11:52 PM CDT Due to temporary technical issues with the PACS/Fluency reporting system, reports are being signed by the in house radiologist without review as a courtesy to ensure prompt reporting. The interpreting r adiologist is fully responsible for the content of the report.
--- NOTE | 2023-03-19 12:03 | RAD REPORT ---
EXAM DESCRIPTION: RAD - Chest Single View - 03/17/2023 11:19 pm CLINICAL HISTORY: CHEST PAIN TECHNIQUE: AP chest COMPARISON: None available for comparison FINDINGS: CHEST: Limited evaluation with patient in supine positioning. Heart: The cardiomediastinal silhouette is within normal limits. Status post median sternotomy. Lungs: No focal consolidation. Mediastinum: Unremarkable Pleura: No appreciable effusion. No pneumothorax. Bones: Intact IMPRESSION: Limited evaluation with patient in supine positioning. No active cardiopulmonary disease . Electronically signed by: Tello De La Rosa MD 03/17/2023 11:33 PM CDT Due to temporary technical issues with the PACS/Fluency reporting system, reports are being signed by the in house radiologist without review as a courtesy to ensure prompt reporting. The interpreting r adiologist is fully responsible for the content of the report.
--- NOTE | 2023-03-19 12:06 | EKG ---
Test Date: 2023-03-17 Test Time: 22:25:34 Choral Teacher: DAMIÁN MEASUREMENT RESULTS: Intervals: Rate: 70 [place]: 182 QRSD: 78 QT: 368 QTc: 397 [place]: P: 72 [place]: 182 QRS: 57 T: 12 INTERPRETIVE STATEMENTS: Normal sinus rhythm Nonspecific T wave abnormality Abnormal ECG Compared to ECG 03/13/2022 05:20:50 T-wave abnormality now present Sinus tachycardia no longer present Myocardial infarct finding no longer present Electronically Signed On 03-19-23 12:00:54 CDT by Jonathan Lyle
== END 2023-03-18 01:17 | disposition home or self-care (01) ==
LOC: ER 22:14
DX: E86.0 Dehydration (principal); N17.9 Acute kidney failure, unspecified; R07.9 Chest pain, unspecified; I10 Essential (primary) hypertension; Z88.5 Allergy status to narcotic agent
CPT/HCPCS: 96361; 93005; 85025; 80048; 36415; 83735; 80076; 84484; 70450; 71045; 96374; 99285; J7040

== ENCOUNTER 2023-07-30 13:00 | Emergency (ER) | payer OTHER ==
--- OUTSIDE RECORDS SUMMARY | 2023-07-30 13:05 | XMS REPORT | Continuity of Care Document ---
:1950 Author Organization [facility] Address [address] [facility]. [place] [place] [address] Care Team Providers Name Role Phone SYLVESTER [...] Effective Date Expiration Date Josue TEJADA MEDICARE [id number] 2020 00:00:00 MEDICAID [employer] [id number] 2021 00:00:00 [place] B-[place]: [id number] 2014 FeZo 00:00:00 [place] [id number] 2019 FORMERLY [facility] CARE - 00:00:00 STAR (MEDICAID HMO) MEDICARE A-[place]: [id number] 2014 FeZo - 00:00:00 RHC - FQHC Problems Condition Condition Condition Status Onset Resolution Last Treating Co mments Source Name Details Category Date Date Treatment Clinician Date S/P CABG x S/P CABG x Disease Active 2019-[address] 3 by 3 by 10-17 [facility] Con on on 00:00: Me dical 08/17/2020 08/17/2020 00 Ce nter Coronary Coronary Disease Active 2019-10 [facility] artery artery 10-13 [facility] disease disease 00:00: Medical 00 Center Essential Essential Problem Active [place] hypertensi Hypertensi 7 da on on 00:00: Medical 00 Group Heart Heart Problem Active [place] disease Disease 7 da 00:00: Medical 00 Group NSTEMI NSTEMI Disease Recurre [facility] (non-ST (non-ST nce 12-[address] [facility] elevation elevation 00:00: Medi amirah myocardial myocardial 00 Ce nter infarction infarction ) ) Other Other Disease Active [facility] specified specified Luke s hypotensio hypotensio Me dical n n Center Acute Acute Disease Active [facility] blood loss blood loss Niyah kes anemia anemia [facility] Center Hyperglyce Hyperglyce Disease Active C [facility] maame [facility] Acute Acute Disease Active [facility] respirator respirator Niyah kes y y Medical insufficie insufficie Ce nter ncy ncy Allergies, Adverse Reactions, Alerts Allergy Allergy Status Severity Reaction(s) Onset Inactive Treating Comm ents Source Name Type Date Date Clinician Tramadol Propensi Active [facility] ty to 3-06 [facility] adverse 00:00: Medical reaction 00 Center s TRAMADOL Allergy Active [facility] 12-11 00:00: 00 Tramadol Allergy Active [place] [facility] Medical e Group Social History Social Habit Start Date Stop Date Quantity Comments Source Alcohol intake 2022-03-16 2022-03-16 Ex-drinker [facility] es 00:00:00 00:00:00 (finding) [facility] Tobacco use and 2018-12-11 2018-12-11 Smokeless [address] [facility] exposure 00:00:00 00:00:00 non-user [facility] Sex Assigned At [birth year] [facility] [address] Linder kes 00:00:00 00:00:00 [facility] Center Smoking Status Start Date Stop Date Source [facility] Medications Ordered Filled Start Stop Current Ordering Indication Dosage Frequency Signature Comments Components Source Medication Medication Date Date Medication? Clinician (SIG) Name Name cycloSPORIN Yes 1[drp] Q.5D Place [address] E 6-08 drop into [facility] (RESTASIS) 20:41: both eyes Me dical 0.05 % 19 2 (two) Center ophthalmic times emulsion daily. aspirin 81 Yes 81mg Q24H Take [address] MG EC 6-08 by mouth [facility] tablet 20:41: daily. [address] thyroid, Yes 15mg QD Take [address] pork, 6-08 by mouth [facility] (ARMOUR) 15 20:41: daily. Medi amirah mg Tab 19 Center tablet hydroCHLORO Yes 25mg QD Take 25 mg [facility] [...] 6-08 by mouth [facility] tablet 20:41: daily. [address] thyroid, Yes 15mg QD Take [address] pork, 6-08 by mouth [facility] (ARMOUR) 15 20:41: daily. Medi amirah mg Tab 19 Center tablet hydroCHLORO 2-0 Yes 25mg QD Take [address] thiazide 6-08 by mouth [facility] (HYDRODIURI 20:41: daily. Medi amirah L) 25 MG 19 Center tablet cycloSPORIN 2-0 Yes 1[drp] Q.5D Place [address] E 6-08 drop into [facility] (RESTASIS) 20:41: both eyes Me dical 0.05 % 19 2 (two) Center ophthalmic times emulsion daily. aspirin 81 2-0 Yes 81mg Q24H Take [address] MG EC 6-08 by mouth [facility] tablet 20:41: daily. Medical 19 Center thyroid, 2021-0 Yes 15mg QD Take [address] pork, 6-08 by mouth [facility] (ARMOUR) 15 20:41: daily. Medi amirah mg Tab 19 Center tablet hydroCHLORO 2021-0 Yes 25mg QD Take [address] thiazide 6-08 by mouth [facility] (HYDRODIURI 20:41: daily. Medi amriah L) 25 MG 19 Center tablet cycloSPORIN 2021-0 Yes 1[drp] Q.5D Place [address] E 6-08 drop into [facility] (RESTASIS) 20:41: both eyes Me dical 0.05 % 19 2 (two) Center ophthalmic times emulsion daily. aspirin 81 2-0 Yes 81mg Q24H Take [address] MG EC 6-08 by mouth [facility] tablet 20:41: daily. Medical 19 Center thyroid, 2-0 Yes 15mg QD Take [address] pork, 6-08 by mouth [facility] (ARMOUR) 15 20:41: daily. Medi amirah mg Tab 19 Center tablet hydroCHLORO 2-0 Yes 25mg QD Take 25 mg CHI [...] MG 00:00: mouth Medical tablet 00 nightly. [place] Symbicort 2019-10 Yes 2{puff} Q.5D Inhale [address] 160-4.5 0-28 puffs by [facility] mcg/actuati 00:00: mouth via M edical on inhaler 00 inhaler 2 Cent er (two) times daily. atorvastati 2019-10 Yes 1{tbl} QD Take [address] [facility] (LIPITOR) 0-28 tablet by Giselle es 80 MG 00:00: mouth Medical tablet 00 nightly. [place] Symbicort 2019-10 Yes 2{puff} Q.5D Inhale [address] 160-4.5 0-28 puffs by [facility] mcg/actuati 00:00: mouth via M edical on inhaler 00 inhaler 2 Cent er (two) times daily. atorvastati 2019-10 Yes 1{tbl} QD Take [address] [facility] (LIPITOR) 0-28 tablet by Giselle es 80 MG 00:00: mouth Medical tablet 00 nightly. [place] Symbicort 2019-10 Yes 2{puff} Q.5D Inhale [address] 160-4.5 0-28 puffs by [facility] mcg/actuati 00:00: mouth via M edical on inhaler 00 inhaler 2 Cent er (two) times daily. atorvastati 2019-10 Yes 1{tbl} QD Take [address] [facility] (LIPITOR) 0-28 tablet by Giselle es 80 MG 00:00: mouth Medical tablet 00 nightly. [place] Symbicort 2019-10 Yes 2{puff} Q.5D Inhale 2 [...] mg 00:00: mouth Medical tablet 00 daily. [place] losartan 2019-10 Yes 1{tbl} QD Take 1 [facility] (COZAAR) 0-02 tablet by [facility] 100 MG 00:00: mouth Medical tablet 00 daily. [place] colchicine 2019-10 Yes .6mg QD Take 0.[address] (COLCRYS) 0-02 mg by [facility] 0.6 mg 00:00: mouth Medical tablet 00 daily. [place] losartan 2019-10 Yes 1{tbl} QD Take 1 [facility] (COZAAR) 0-02 tablet by [facility] 100 MG 00:00: mouth Medical tablet 00 daily. [place] colchicine 2019-10 Yes .6mg QD Take 0.[address] (COLCRYS) 0-02 mg by [facility] 0.6 mg 00:00: mouth Medical tablet 00 daily. [place] losartan 2019-10 Yes 1{tbl} QD Take 1 [facility] (COZAAR) 0-02 tablet by [facility] 100 MG 00:00: mouth Medical tablet 00 daily. [place] colchicine 2019-10 Yes .6mg QD Take 0.[address] (COLCRYS) 0-02 mg by [facility]ukes 0.6 mg 00:00: mouth Medical tablet 00 daily. [place] losartan 2019-10 Yes 1{tbl} QD Take 1 [facility] (COZAAR) 0-02 tablet by [facility] 100 MG 00:00: mouth Medical tablet 00 daily. [place] Vital Signs Vital Name Observation Time Observation [...] BP Diastolic 2019-05-13 00:00:00 98 mm[Hg] [facility] Height 2019-05-13 00:00:00 62 [in_i] [facility] BMI (Body Mass 2019-05-13 00:00:00 38.6 kg/m2 [facility]) Group BP Systolic 2019-05-13 00:00:00 170 mm[Hg] [facility] Body Weight 2019-05-13 00:00:00 211 [lb_av] [facility] BP Diastolic 2019-04-15 00:00:00 94 mm[Hg] [facility] Height 2019-04-15 00:00:00 62 [facility] BMI (Body Mass 2019-04-15 00:00:00 37[facility]9 [facility] BP Systolic 2019-04-15 00:00:00 130 mm[Hg] [facility] Body Weight 2019-04-15 00:00:00 207 [facility]lb_av] [facility] Systolic blood 2022-03-15 20:30:00 123 mm[Hg] [facility] Diastolic blood 2022-03-15 20:30:00 82 mm[Hg] [facility] Heart rate 2022-03-15 20:30:00 86 /min [facility] Body temperature 2022-03-15 20:30:00 36.72 Melinda [facility] Respiratory rate 2022-03-15 20:30:00 14 /min [facility] Oxygen saturation in 2022-03-15 20:30:00 98 /min [facility] Arterial blood by Medical Ce nter Pulse oximetry Procedures Procedure Date / Time Performing Clinician Source Performed REPORT OF PROCEDURE - 2022-03-15 17:36:33 Krishna Pearson [facility] ENDOSCOPY [facility] [place] ERCP 2022-03-15 17:30:00 Krishna Pearson [facility] ERCP, WITH SPHINCTEROTOMY 2022-03-15 17:08:00 Krishna Pearson [facility] ERCP, WITH BALLOON SWEEP 2022-03-15 17:08:00 Krishna Pearson I [facility] OF BILE DUCTS [facility] PROCEDURE W/ C-ARM 2022-03-15 17:08:00 Krishna Pearson [facility] Carotid Stent Placement [facility] Tubal Ligation [facility] Foot/toes Surgery [facility] Procedure Group Plan of Care Planned Activity Planned Date Details Comments Source Future Scheduled 2023-06-08 Influenza Vaccine (#1) [facility] Test 00:00:00 [code = Influenza Medical Ce nter Vaccine (#1)] Future Scheduled 2023-06-[address] [facility] Test 00:00:00 (Season Ended) [code = Medic al Center INFLUENZA VACCINE (Season Ended)] Future Scheduled 2023-06-[address] [facility] Test 00:00:00 (Season Ended) [code = Medic al Center INFLUENZA VACCINE (Season Ended)] Future Scheduled 2023-06-08 Influenza Vaccine (#1) [facility] Test 00:00:00 [code = Influenza Medical Ce nter Vaccine (#1)] Future Scheduled 2023-03-[address] [...] FIRST YEAR if no IPPE)] Future Scheduled 2020-06-[address] [facility] Test 00:00:00 WELLNESS (YEAR 2 or Medical Center FIRST YEAR if no IPPE) [code = MEDICARE ANNUAL WELLNESS (YEAR 2 or FIRST YEAR if no IPPE)] Future Scheduled 2020-06-[address] [...] [facility] Test 00:00:00 2) [code = SHINGLES Medical Center VACCINES (1 of 2)] Future Scheduled 1968 DTAP/TDAP/TD VACCINES [facility] Test 00:00:00 (1 - Tdap) [code = Medical C enter DTAP/TDAP/TD VACCINES (1 - Tdap)] Future Scheduled 1968 SHINGLES VACCINES ([address] [facility] Test 00:00[facility]00 [facility] Future Scheduled 1968 DTAP/TDAP/TD VACCINES [facility] Test 00:00:00 (1 - Tdap) [code = Medical C enter DTAP/TDAP/TD VACCINES (1 - Tdap)] Future Scheduled 1968 SHINGLES VACCINES ([address] [facility] Test 00:00[facility]00 [facility])] Future Scheduled 1968 DTAP/TDAP/TD VACCINES [facility] Test 00:00:00 (1 - Tdap) [code = Medical C enter DTAP/TDAP/TD VACCINES (1 - Tdap)] Future Scheduled 1968 SHINGLES VACCINES ([address] [facility] Test 00:00:00 2) [code = [facility] VACCINES (1 of 2)] Future Scheduled 1967-12-11 [...] breast Medical C enter (procedure) [code = 034795042] Future Scheduled 1949 CT Colonography (combo) [facility] Test 00:00:00 [code = CT Colonography [facility] (combo)] Future Scheduled 1949 Screening for malignant [facility] Test 00:00:00 neoplasm of colon Medical Ce nter (procedure) [code = 574241012] Future Scheduled 1949 Screening for malignant [facility] Test 00:00:00 neoplasm of colon Medical Ce nter (procedure) [code = 348301279] Future Scheduled 1950 DXA SCAN [code = DXA [facility] Test 00:00:00 SCAN] [facility] Future Scheduled 1949 Screening for malignant [facility] Test 00:00:00 neoplasm of colon Medical Ce nter (procedure) [code = 830866332] Future Scheduled 1949 Screening for malignant [facility] Test 00:00:00 neoplasm of colon Medical Ce nter (procedure) [code = 872111148] Future Scheduled 1950 Sigmoidoscopy [code = [facility] Test 00:00:00 Sigmoidoscopy] Medical Cente r Future Scheduled 1949 Screening for malignant [facility] Test 00:00:00 neoplasm of breast Medical C enter (procedure) [code = 514104617] Future Scheduled 1949 CT Colonography (combo) [facility] Test 00:00:00 [code = CT Colonography [facility] (combo)] Future Scheduled 1949 Screening for malignant [facility] Test 00:00:00 neoplasm of colon Medical Ce nter (procedure) [code = 694513714] Future Scheduled 1949 Screening for malignant [facility] Test 00:00:00 neoplasm of colon Medical Ce nter (procedure) [code = 956353379] Future Scheduled 1950 DXA SCAN [code = DXA [facility] Test 00:00:00 SCAN] [facility] Future Scheduled 1949 Screening for malignant [facility] Test 00:00:00 neoplasm of colon Medical Ce nter (procedure) [code = 045325982] Future Scheduled 1949 Screening for malignant [facility] Test 00:00:00 neoplasm of colon Medical Ce nter (procedure) [code = 014205036] Future Scheduled 1950 Sigmoidoscopy [code = [facility] Test 00:00:00 Sigmoidoscopy] [facility] Future Scheduled 1949 Screening for malignant [facility] Test 00:00:00 neoplasm of breast Medical C enter (procedure) [code = 424629579] Future Scheduled 1949 CT Colonography (combo) [facility] Test 00:00:00 [code = CT Colonography [facility] (combo)] Future Scheduled 1949 Screening for malignant [facility] Test 00:00:00 neoplasm of colon Medical Ce nter (procedure) [code = 224306692] Future Scheduled 1949 Screening for malignant [facility] Test 00:00:00 neoplasm of colon Medical Ce nter (procedure) [code = 932505551] Future Scheduled 1950 DXA SCAN [code = DXA [facility] Test 00:00:00 SCAN] [facility] Future Scheduled 1949 Screening for malignant [facility] Test 00:00:00 neoplasm of colon Medical Ce nter (procedure) [code = 505612312] Future Scheduled 1949 Screening for malignant [facility] Test 00:00:00 neoplasm of colon Medical Ce nter (procedure) [code = 278816025] Future Scheduled 1950 Sigmoidoscopy [code = [facility] Test 00:00:00 Sigmoidoscopy] Medical Cente r Future Scheduled 1949 Screening for malignant [facility] Test 00:00:00 neoplasm of breast Medical C enter (procedure) [code = 680573567] Future Scheduled 1949 CT Colonography (combo) [facility] Test 00:00:00 [code = CT Colonography [facility] (combo)] Future Scheduled 1949 Screening for malignant [facility] Test 00:00:00 neoplasm of colon Medical Ce nter (procedure) [code = 503321688] Future Scheduled 1949 Screening for malignant [facility] Test 00:00:00 neoplasm of colon Medical Ce nter (procedure) [code = 469554380] Future Scheduled 1950 DXA SCAN [code = DXA [facility] Test 00:00:00 SCAN] [facility] Future Scheduled 1949 Screening for malignant [facility] Test 00:00:00 neoplasm of colon Medical Ce nter (procedure) [code = 564937845] Future Scheduled 1949 Screening for malignant [facility] Test 00:00:00 neoplasm of colon Medical Ce nter (procedure) [code = 834198453] Future Scheduled 1950 Sigmoidoscopy [code = [facility] Test 00:00:00 Sigmoidoscopy] Medical Cente r Encounters Start End Encounter Admission Attending Care Care Encounter Source Date/Time Date/Time Type Type Clinicians Facility Department ID 2022-03-13 Outpatient BRIANNA REYES Gastro [id number] 10:26:30 [facility] 2020-08-13 Inpatient DILLON PEERS, [facility] Cardiology [id number] SLE 19:32:00 MARIA ELENA 2022-05-05 2022-05-05 Outpatient MICHELLE PHOENIX [id number] [place] 00:00:00 00:00:00 HN [id number] da [facility] Program 2022-03-15 2022-03-15 Outpatient VARGAS DIGGS Surgery [id number] [facility] 14:38:00 20:30:00 [facility] EMERGENCY [facility]PART[facility] 2022-03-15 2022-03-15 Hospital Michel [facility] [id number] 14:38:00 20:30:00 Encounter [facility] 2022-03-15 2022-03-15 Surgery Michel [facility] [id number] 16:33:00 18:03:00 [facility] 2022-03-15 2022-03-15 Anesthesia John Louise [facility] [id number] 17:13:00 17:50:00 Event Yosef Enmanuel [facility] 2020-09-09 2020-09-09 Outpatient DARCIE ONTIVEROS [facility] [id number] SLE 00:00:00 00:00:00 BHUPENDRA 2020-08-25 2020-08-25 Outpatient Rutledge_L [facility] [id number] [place] 02:23:00 02:23:00 1118 Medical Group 2020-05-11 2020-05-11 Outpatient Rutledge_L MMG MM [id number] [place] 12:39:00 12:39:00 0821 Medical Group 2020-04-22 2020-04-22 Outpatient Rutledge_L MMG [facility]G [id number] [place] 12:17:00 12:17:00 0716 [facility] 2019-05-13 2019-05-13 Roxy [facility] [place] - [id number] M atagor 00:00:00 00:00:00 Max Srivastava Medical Medicshirley hernandez MD: [address] [facility], OBGYN [address] [place] [phone] , Ph. [phone] 2019-04-15 2019-04-15 Roxy [place] - [id number] M at[place]ashia 00:00:00 00:00:00 Max Srivastava Medical Medicshirley hernandez MD: [address] [facility], OBN [address] [place] [phone] , Ph. [phone] Results Test Description Test Time Test Comments Results Result [facility] e Comments [place], ERCP 2022-03-15 Reason for 17:30:00 exam:->abnormal imaging [facility] : 1950 Sex: F An imaging unit was utilized for this procedure. No radiologist interpretation was requested. Refer to the EMR for findings. Refer to PACS for any patient radiation dose information. SARS-COV2/RT-PCR ([facility]) 2020-08-24 12:40:00 Test Item Value Reference Range Interpretation Comme nts SARS-COV2/RT-PCR (test code = 1007534) Negative Not Detected, N egative, See external report for linked test SARS-COV-2 PERFORMING LAB (test code = [facility] 1838073) Negative result for this test determines that [...] of the Act.Fact Sheet for Healthcare Prov iders:https://www.[employer]/sites/default/files/product/documents/Fact_Sheet_HC _Zltwnlnmh_Zpvc_TVYT-IzA-4.pdfFact Sheet for Healthcare Patients:https://www.[employer]/sites/default/files/product/docume nts/Gldo_Xbneq_Zkdorelj_Tduk_WXJW-MdY-6.pdfPerforming Laboratory:[place] [address] [address], [place] [address]XYYWG METABOLIC PANEL 2020-08-24 04:37:00 Test Item Value [...] S NOT APPLICABLE FOR DIALYSIS PATIEN TS. Grating Machine Operator ID - EDASICBC W/PLT COUNT & AUTO [id number] 04:04:00 Test Item Value Reference Range Interpretation [...] (BEAKER) (test code = 2801) BASIC METABOLIC [id number] 10:27:00 Test Item Value Reference Range Interpretation [...] S NOT APPLICABLE FOR DIALYSIS PATIEN TS. Grating Machine Operator ID - EDASICBC W/PLT COUNT & AUTO [id number] 10:07:00 Test Item Value Reference Range Interpretation [...] (BEAKER) (test code = 2801) BASIC METABOLIC [id number] 10:29:00 Test Item Value Reference Range Interpretation [...] S NOT APPLICABLE FOR DIALYSIS PATIEN TS. Grating Machine Operator ID - MARTINA CLACTIC ACID, [id number] 06:55:00 Test Item Value Reference Range Interpretation Comments LACTATE BLOOD ARTERIAL (2) 1.5 mmol/L 0.5-2.2 (BEAKER) (test code = 2874) Grating Machine Operator ID - DBCBC W/PLT COUNT & AUTO [id number] 06:47:00 Test Item Value Reference Range Interpretation [...] PERCENT (BEAKER) (test code = 2801) CALCIUM, [id number] 06:43:00 Test Item Value Reference Range Interpretation Comments CALCIUM IONIZED (BEAKER) (test 1.12 mmol/L 1.12-1.27 code = 698) PH, BLOOD (BEAKER) (test code = 7.41 1810) RAD, CHEST, 1 VIEW, NON [id number] 06:22:00while patient is intubated or has chest tubes.Reason for exam:->Status post CV SurgeryShould thisbe performed at the bedside?->Yes [facility] : 1950 Sex: FFINAL REPORT Chest one view. Clinical history: Status post CV Surgery Comparison: Chestradiograph 08/19/2020. Technique: A single frontal view of the chest was obtained. Findings:The patient is status post median sternotomy and cardiac surgery.The cardiomediastinal contours are stable. There are diffuse bilateral airspace opacities, mildly decreased. There are small bilateral pleural effusions. There is no pneumothorax. Signed: Santosh Grullonepdaniel Verified Date/Time: 08/20/2020 06:22:53 BASIC METABOLIC [id number] 15:13:00 Test Item Value Reference Range Interpretation [...] S NOT APPLICABLE FOR DIALYSIS PATIEN TS. Grating Machine Operator ID Vivian DE SANTIAGO [id number] 15:13:00 Test Item Value Reference Range Interpretation Comments MAGNESIUM (BEAKER) (test code = 2.0 mg/dL 1.6-2.6 627) Grating Machine Operator ID - JONNATHAN [id number] 15:13:00 Test Item Value Reference Range Interpretation Comments PHOSPHORUS (BEAKER) (test code = 2.2 mg/dL 2.3-4.7 L 604) Grating Machine Operator ID - JONNATHAN FLACTIC ACID, [id number] 15:01:00 Test Item Value Reference Range Interpretation Comments LACTATE BLOOD VENOUS 3.11 mmol/L 0.50-2.20 H Specime n slightly (2) (BEAKER) (test hemolyzed code = 7064) Grating Machine Operator ID Vivian DE SANTIAGO FCBC W/PLT COUNT & AUTO [id number] 14:57:00 Test Item Value Reference Range Interpretation [...] PERCENT (BEAKER) (test code = 2801) CALCIUM, [id number] 14:51:00 Test Item Value Reference Range Interpretation Comments CALCIUM IONIZED (BEAKER) (test 1.12 mmol/L 1.12-1.27 code = 698) PH, BLOOD (BEAKER) (test code = 7.30 1810) RAD, CHEST, 1 VIEW, NON [id number] 02:59:00while patient is intubated or has chest tubes.Reason for exam:->Status post CV SurgeryShould thisbe performed at the bedside?->Yes [facility] : 1950 Sex: FFINAL REPORT RAD, CHEST, 1 VIEW, NON DEPT INDICATION: Status post CV Surgery COMPARISON: Prior day's exam FINDINGS: Portable frontal view of the chest. IMPRESSION: Support Lines: The bilateral chest tubes have been removed. Lungs and pleura: Moderately increased bilateral patchy airspaceopacities, greater on the left, compatible with worsening edema. Small left pleural effusion is present. No pneumothorax.Heart and mediastinum: Stable contours.Additional findings: None. Signed: Bhupendra Avila Verified Date/Time: 08/19/2020 02:59:01 [id number] 06:29:00 Test Item Value Reference Range Interpretation Comments ACTIVATED CLOTTING TIME 92 sec : 74 -137 seconds, (BEAKER) (test code = Baseli ne: TESTED AT 441) [address], [facility] 30: Grating Machine Operator/Techni norm ID = [id number] for BE BHUPENDRA DOMINGUEZ [id number] 06:29:00 Test Item Value Reference Range Interpretation Comments ACTIVATED CLOTTING TIME 499 sec : 74 -137 seconds, (BEAKER) (test code = Baseli ne: TESTED AT 441) [address], [facility] 30: Grating Machine Operator/Techni norm ID = [id number] for BE AVERSBHUPENDRA [id number] 06:29:00 Test Item Value Reference Range Interpretation Comments ACTIVATED CLOTTING TIME 555 sec : 74 -137 seconds, (BEAKER) (test code = Baseli ne: TESTED AT 441) [address], [facility] 30: Grating Machine Operator/Techni norm ID = [id number] for BE BHUPENDRA DOMINGUEZ [id number] 06:29:00 Test Item Value Reference Range Interpretation Comments ACTIVATED CLOTTING TIME 439 sec : 74 -137 seconds, (BEAKER) (test code = Baseli ne: TESTED AT 441) [address], [facility] 30: Grating Machine Operator/Techni norm ID = [id number] for BE BHUPENDRA DOMINGUEZ [id number] 06:29:00 Test Item Value Reference Range Interpretation Comments ACTIVATED CLOTTING TIME 472 sec : 74 -137 seconds, (BEAKER) (test code = Baseli ne: TESTED AT 441) [address], [facility] 30: Grating Machine Operator/Techni norm ID = [id number] for BHUPENDRA MENDIOLA RAD, CHEST, 1 VIEW, NON [id number] 05:19:00while patient is intubated or has chest tubes.Reason for exam:->Status post CV SurgeryShould thisbe performed at the bedside?->Yes [facility] C[facility]USName: HARESHBLOSSOMADRIANA RUTHERFORD : 1950 Sex: FFINAL REPORT RAD, CHEST, [...] Stable surgical changes.Additional findings: None. Signed: Natalia Trujilloeport Verified Date/Time: 08/18/2020 05:19:20 C METABOLIC [id number] 05:06:00 Test Item Value Reference Range Interpretation [...] S NOT APPLICABLE FOR DIALYSIS PATIEN TS. Grating Machine Operator ID - [id number] 05:06:00 Test Item Value Reference Range Interpretation Comments MAGNESIUM (BEAKER) (test code = 2.3 mg/dL 1.6-2.6 627) Grating Machine Operator ID - [id number] 05:06:00 Test Item Value Reference Range Interpretation Comments PHOSPHORUS (BEAKER) (test code = 4.1 mg/dL 2.3-4.7 604) Grating Machine Operator ID - EDASILACTIC ACID, [id number] 04:31:00 Test Item Value Reference Range Interpretation Comments LACTATE BLOOD 2.4 mmol/L 0.5-2.2 H Specimen sligh tly ARTERIAL (2) (BEAKER) hemoly zed (test code = 2874) Grating Machine Operator ID - BSCBC W/PLT COUNT & AUTO [id number] 04:27:00 Test Item Value Reference Range Interpretation [...] PERCENT (BEAKER) (test code = 2801) CALCIUM, [id number] 04:15:00 Test Item Value Reference Range Interpretation Comments CALCIUM IONIZED (BEAKER) (test 1.08 mmol/L 1.12-1.27 L code = 698) PH, BLOOD (BEAKER) (test code = 7.42 1810) BLOOD GAS, [id number] 04:15:00 Test Item Value Reference Range Interpretation [...] (BEAKER) (test code = 1819) 32.0 POCT-GLUCOSE [id number] 22:46:00 Test Item Value Reference Range Interpretation Comments POC-GLUCOSE METER 123 mg/dL 70-110 H : TESTED A T [facility] 6720 (BEAKER) (test code = [place]O FERREIR[place], 1538) [address]: Grating Machine Operator/Techni norm ID = [id number] for DIANE MCCOLLUM BASIC METABOLIC [id number] 20:41:00 Test Item Value Reference Range Interpretation [...] S NOT APPLICABLE FOR DIALYSIS PATIEN TS. Grating Machine Operator ID - [id number] 20:41:00 Test Item Value Reference Range Interpretation Comments MAGNESIUM (BEAKER) (test code = 1.9 mg/dL 1.6-2.6 627) Grating Machine Operator ID - BSLACTIC ACID, [id number] 20:37:00 Test Item Value Reference Range Interpretation Comments LACTATE BLOOD ARTERIAL (2) 1.2 mmol/L 0.5-2.2 (BEAKER) (test code = 2874) Grating Machine Operator ID - BSCBC W/PLT COUNT & AUTO [id number] 20:28:00 Test Item Value Reference Range Interpretation [...] (BEAKER) (test code = 2801) BLOOD GAS, [id number] 20:25:00 Test Item Value Reference Range Interpretation [...] (test code = 1819) 28.0 BLOOD GAS, [id number] 19:28:00 Test Item Value Reference Range Interpretation [...] (BEAKER) (test code = 1819) 40.0 POCT-GLUCOSE [id number] 18:18:00 Test Item Value Reference Range Interpretation Comments POC-GLUCOSE METER 123 mg/dL 70-110 H : TESTED A T [facility] 6720 (BEAKER) (test code [facility], = 1538) [address]: Grating Machine Operator/Techni norm ID = [id number] for RAY TO, CHRISTIMARIE POCT-GLUCOSE [id number] 17:31:00 Test Item Value Reference Range Interpretation Comments POC-GLUCOSE METER 118 mg/dL 70-110 H : TESTED A T [facility] 6720 (BEAKER) (test code [facility], = 1538) 02651: Grating Machine Operator/Techni norm ID = [id number] for RAY TO, CHRISTIMARIE POCT-GLUCOSE [id number] 16:22:00 Test Item Value Reference Range Interpretation Comments POC-GLUCOSE METER 103 mg/dL 70-110 : TESTED A T [facility] 6720 (BEAKER) (test code [facility], = 1538) 53104: Grating Machine Operator/Techni norm ID = [id number] for RAY TOSMITHA [id number] 15:41:00 Test Item Value Reference Range Interpretation Comments PHOSPHORUS (BEAKER) 2.7 mg/dL 2.3-4.7 Specimen slightly (test code = 604) hemolyzed Grating Machine Operator ID - BSPOCT-GLUCOSE [id number] 15:38:00 Test Item Value Reference Range Interpretation Comments POC-GLUCOSE METER 106 mg/dL 70-110 : TESTED A T [facility] 6720 (BEAKER) (test code [facility], = 1538) [address]27[address]: Grating Machine Operator/Techni norm ID = [id number] for RAY TOSMITHA CBC W/PLT COUNT & AUTO [id number] 14:47:00 Test Item Value Reference Range Interpretation [...] (BEAKER) (test code = 2801) BASIC METABOLIC [id number] 14:38:00 Test Item Value Reference Range Interpretation [...] S NOT APPLICABLE FOR DIALYSIS PATIEN TS. Grating Machine Operator ID Vivian DE SANTIAGO [id number] 14:36:00 Test Item Value Reference Range Interpretation Comments MAGNESIUM (BEAKER) 1.5 mg/dL 1.6-2.6 L Specimen slightly (test code = 627) hemolyzed Grating Machine Operator ID - JONNATHAN FLACTIC ACID, [id number] 14:33:00 Test Item Value Reference Range Interpretation Comments LACTATE BLOOD 1.7 mmol/L 0.5-2.2 Specimen sligh tly ARTERIAL (2) (BEAKER) hemoly zed (test code = 2874) Grating Machine Operator ID - JONNATHAN FBLOOD GAS, [id number] 14:22:00 Test Item Value Reference Range Interpretation [...] (test code = 1819) 60.0 OXYGEN SATURATION, [id number] 14:16:00 Test Item Value Reference Range Interpretation Comments O2 SATURATION (MEASURED) (BEAKER) 66.4 % (test code = 1455) RAD, CHEST, 1 VIEW, NON [id number] 14:16:00Reason for exam:->Status post CV Surgery post op day 0Should this be performed at the bedside?->Yes [facility] : 1950 Sex: FFINAL REPORT [...] MDReport Verified Date/Time: 08/17/2020 14:16:32 Reading Location: [facility] Radiology Reading Room POTASSIUM-STAT [id number] 12:38:00 Test Item Value Reference Range Interpretation Comments POTASSIUM (BEAKER) (test code = 5.0 meq/L 3.6-5.5 379) BLOOD GAS, [id number] 12:38:00 Test Item Value Reference Range Interpretation [...] (BEAKER) (test code = 1819) 60.0 GLUCOSE-STAT [id number] 12:38:00 Test Item Value Reference Range Interpretation Comments GLUCOSE RANDOM (BEAKER) (test code 206 mg/dL 70-110 H = 652) CALCIUM, [id number] 12:38:00 Test Item Value Reference Range Interpretation Comments CALCIUM IONIZED (BEAKER) (test 1.11 mmol/L 1.12-1.27 L code = 698) PH, BLOOD (BEAKER) (test code = 7.41 1810) SODIUM NA-STAT [id number] 12:38:00 Test Item Value Reference Range Interpretation Comments SODIUM (BEAKER) (test code = 381) 133 meq/L 136-145 L HGB/HCT (H&H) - STAT [id number] 12:38:00 Test Item Value Reference Range Interpretation Comments HEMOGLOBIN (BEAKER) (test code = 8.4 GM/DL 12.0-15.0 L 410) HEMATOCRIT (BEAKER) (test code = 25.0 % 36.0-45.0 L 411) POTASSIUM-STAT [id number] 11:52:00 Test Item Value Reference Range Interpretation Comments POTASSIUM (BEAKER) (test code = 6.2 meq/L 3.6-5.5 HH 379) BLOOD GAS, [id number] 11:51:00 Test Item Value Reference Range Interpretation [...] (test code = 1819) 65.0 SODIUM NA-STAT [id number] 11:51:00 Test Item Value Reference Range Interpretation Comments SODIUM (BEAKER) (test code = 381) 132 meq/L 136-145 L GLUCOSE-STAT [id number] 11:51:00 Test Item Value Reference Range Interpretation Comments GLUCOSE RANDOM (BEAKER) (test code 238 mg/dL 70-110 H = 652) HGB/HCT (H&H) - STAT [id number] 11:51:00 Test Item Value Reference Range Interpretation Comments HEMOGLOBIN (BEAKER) (test code = 7.8 GM/DL 12.0-15.0 L 410) HEMATOCRIT (BEAKER) (test code = 23.0 % 36.0-45.0 L 411) BLOOD GAS, [id number] 10:48:00 Test Item Value Reference Range Interpretation [...] (BEAKER) (test code = 1819) 60.0 POTASSIUM-STAT [id number] 10:48:00 Test Item Value Reference Range Interpretation Comments POTASSIUM (BEAKER) (test code = 5.4 meq/L 3.6-5.5 379) BLOOD GAS, [id number] 10:48:00 Test Item Value Reference Range Interpretation [...] (test code = 1819) 60.0 SODIUM NA-STAT [id number] 10:48:00 Test Item Value Reference Range Interpretation Comments SODIUM (BEAKER) (test code = 381) 131 meq/L 136-145 L GLUCOSE-STAT [id number] 10:48:00 Test Item Value Reference Range Interpretation Comments GLUCOSE RANDOM (BEAKER) (test code 208 mg/dL 70-110 H = 652) HGB/HCT (H&H) - STAT [id number] 10:48:00 Test Item Value Reference Range Interpretation Comments HEMOGLOBIN (BEAKER) (test code = 7.7 GM/DL 12.0-15.0 L 410) HEMATOCRIT (BEAKER) (test code = 23.0 % 36.0-45.0 L 411) BLOOD GAS, [id number] 08:25:00 Test Item Value Reference Range Interpretation [...] (BEAKER) (test code = 1819) 90.0 GLUCOSE-STAT [id number] 08:25:00 Test Item Value Reference Range Interpretation Comments GLUCOSE RANDOM (BEAKER) (test code 127 mg/dL 70-110 H = 652) SODIUM NA-STAT [id number] 08:24:00 Test Item Value Reference Range Interpretation Comments SODIUM (BEAKER) (test code = 381) 136 meq/L 136-145 POTASSIUM-STAT [id number] 08:24:00 Test Item Value Reference Range Interpretation Comments POTASSIUM (BEAKER) (test code = 4.3 meq/L 3.6-5.5 379) HGB/HCT (H&H) - STAT [id number] 08:24:00 Test Item Value Reference Range Interpretation Comments HEMOGLOBIN (BEAKER) (test code = 12.6 GM/DL 12.0-15.0 410) HEMATOCRIT (BEAKER) (test code = 37.0 % 36.0-45.0 411) HEMOGLOBIN [id number] 22:12:00 Test Item Value Reference Range Interpretation Comments HEMOGLOBIN A1C (BEAKER) (test code = 5.8 % 4.3-6.1 368) [id number] 22:02:00 Test Item Value Reference Range Interpretation Comments MAGNESIUM (BEAKER) 1.7 mg/dL 1.6-2.6 Specimen slightly (test code = 627) hemolyzed Grating Machine Operator BRANDON - GUIN FCOMPREHENSIVE METABOLIC [id number] 22:02:00 Test Item Value Reference Range Interpretation [...] S NOT APPLICABLE FOR DIALYSIS PATIEN TS. Grating Machine Operator ID Vivian DE SANTIAGO FLIPID [id number] 22:02:00 Test Item Value Reference Range Interpretation [...] Borderline 130-159 High 160-189 Very High >=190 Grating Machine Operator BRANDON DE SANTIAGO [id number] 21:49:00 Test Item Value Reference Range Interpretation Comments PARTIAL THROMBOPLASTIN TIME 31.5 seconds 22.5-36.0 (BEAKER) (test code = 760) PROTHROMBIN [id number] 21:48:00 Test Item Value Reference Range Interpretation [...] mechanical heart valves.CBC W/PLT COUNT & AUTO [id number] 21:43:00 Test Item Value Reference Range Interpretation [...] PERCENT (BEAKER) (test code = 2801) SARS-COV2/RT-PCR ([facility])2020-08-14 20:18:00 Test Item Value Reference Range Interpretation Comments SARS-COV2/RT-PCR (test Negative Not Detected, Negative, code = 8807731) See external report for linked test SARS-COV-2 PERFORMING LAB [facility] (test code = 4846304) Negative result for this test determines that [...] the Bourne SARS-CoV-2 assay.Fact Sheet for Healthcare Providers:https://www.SAFCell.bourne/luiz/RT_SAR R-YfS-6_SCE_Otqk_Yjaks_03-079374.pdfFact Sheet for Healthcare Patients:https://www.molecular.bourne/s al/FA_IBHQ-LvO-5_Hpjywjc_Zmtp_Gpitx_IH_27-298843V0.pdfPerforming Laboratory:[facility] [place] [address] BASIC METABOLIC [id number] 06:00:00 Test Item Value Reference Range Interpretation [...] S NOT APPLICABLE FOR DIALYSIS PATIEN TS. Grating Machine Operator ID - [id number] 06:00:00 Test Item Value Reference Range Interpretation Comments MAGNESIUM (BEAKER) (test code = 1.7 mg/dL 1.6-2.6 627) Grating Machine Operator ID - EDASIHEPATIC FUNCTION [id number] 06:00:00 Test Item Value Reference Range Interpretation [...] (test code = 24 U/L 6-55 347) Grating Machine Operator ID - EDASIPROTHROMBIN TIME/[id number] 05:25:00 Test Item Value Reference Range Interpretation [...] mechanical heart valves.CBC W/PLT COUNT & AUTO [id number] 05:13:00 Test Item Value Reference Range Interpretation [...] (test code = 2801) CT, BRAIN, WITHOUT [id number] 04:33:00Unlisted Reason for Exam - Click Yes and Enter Reason Below->No [facility]ATH[facility] : 1950 Sex: FFINAL REPORT [...] MDReport Verified Date/Time: 08/14/2020 04:33:35 Thyroid Stimulating [id number] 22:54:49 Test Item Value Reference Range Interpretation Comments TSH (test code = TSH) 1.940 mIU/mL 0.270-4.200 Comprehensive Metabolic [id number] 22:34:40 Test Item Value Reference Range Interpretation [...] = A/G 1.4 ratio N Ratio) Lipid [id number] 22:34:40 Test Item Value Reference Range Interpretation Comments Cholesterol Total 212 mg/dL 0-200 H RISK OF HE ART (test code = DISEASEPublishe d by Cholesterol Total) [employer] Farhana lyte Optimal Borderl ine Increased RiskC HOL <200 200-239 >240TRI G <150 150-199 >200HDL Male >60 <40HDL Fema le >60 <50LDL <100 130 -159 >160LDL Near op timal is 100-129 Triglycerides (test 157 mg/dL 9-200 [...] LDL/HDL Ratio=L DL Calc/HDL Chol Comprehensive Metabolic [id number] 22:34:40 Test Item Value Reference Range Interpretation [...] National Kidney Foundation, http://nkdep.ni h.gov Comprehensive Metabolic [id number] 22:34:40 Test Item Value Reference Range Interpretation [...] by the National Kidney Foundation, http://nkdep.ni h.gov [id number] 21:47:04 Test Item Value Reference Range Interpretation [...] code = Normal Normal Plt Estimation) Automated [id number] 21:28:33 Test Item Value Reference Range Interpretation Comments Neutro Auto (test code = Neutro 59.6 % 36.0-70.0 Auto) Lymph Auto (test code = Lymph Auto) 29.8 % 12.0-44.0 [place] Auto (test code = [place] Auto) 8.2 % 0.0-11.0 Eos, Auto (test code = Eos, Auto) 1.8 % 0.0-7.0 Basophil Auto (test code = Basophil 0.4 % 0.0-2.0 Auto) Neutro Absolute (test code = Neutro 3.1 x10 1.6-7.4 Absolute) Lymph Absolute (test code = Lymph 1.53 x10 .50-4.60 Absolute) [place] Absolute (test code = [place] .42 x10 .00-1.20 Absolute) Eos Absolute (test code = Eos 0.09 x10 0.00-0.74 Absolute) Baso Absolute (test code = Baso 0.02 x10 0.00-0.21 Absolute) IG [id number] 21:28:33 Test Item Value Reference Range Interpretation Comments IG (test code = IG) 0.2 % 0.0-5.0 IG Abs (test code = IG Abs) 0 x10 N Complete Blood Count with [id number] 21:28:32 Test Item Value Reference Range Interpretation [...] 11 % N Complete Blood Count with [id number] 21:28:32 Test Item Value Reference Range Interpretation [...] IPF) 11 % N pap, LB + [id number] 00:00:00 Test Item Value Reference Range Interpretation Comments HPV type-detect 3.0 by next gen not detected sequencing (reflex to HPV-16 risk assessment status) (test code = HPV type-detect 3.0 by next gen sequencing (reflex to HPV-16 risk assessment status)) General categories normal [interpretation] of Cervical or vaginal smear or scraping by Cyto stain (test code = 31962-0) [facility] [#/[facility]] in [id number] 00:00:00 Test Item Value Reference Range Interpretation [...] code = pseudomonas aeruginosa by real-time PCR) [facility] HospitalUrinalysis macro (dipstick) panel - [id number] 10:21:00 Test Item Value Reference Range Interpretation Comments Leukocytes (test code = Leukocytes) Trace Nitrite (test code = Nitrite) negative Urobilinogen (test code = 1 Urobilinogen) Protein (test code = Protein) 30 pH (test code = pH) 5.5 Blood (test code = Blood) Negative Specific [place] (test code = 1.030 Specific [place]) Ketone (test code = Ketone) Negative Bilirubin (test code = Bilirubin) Negative Glucose (test code = Glucose) Negative Appearance (test code = Appearance) Clear Color (test code = Color) Yellow [facility] HospitalUrinal[facility] macro (dipstick) panel - [id number] 10:21:00 Test Item Value Reference Range Interpretation Comments Leukocytes (test code = Leukocytes) Trace Nitrite (test code = Nitrite) negative Urobilinogen (test code = 1 Urobilinogen) Protein (test code = Protein) 30 pH (test code = pH) 5.5 Blood (test code = Blood) Negative Specific [place] (test code = 1.030 Specific [place]) Ketone (test code = Ketone) Negative Bilirubin (test code = Bilirubin) Negative Glucose (test code = Glucose) Negative Appearance (test code = Appearance) Clear Color (test code = Color) Yellow [facility] pathology [id number] 09:00:00 Test Item Value Reference Range Interpretation Comments Surgical pathology see separate pathology study (test code = report. 41649-8) [facility] HospitalPO[facility] [id number] 12:33:00 Test Item Value Reference Range Interpretation Comments POC-GLUCOSE METER 131 mg/dL 70-110 H TESTED AT [facility] [address] ([facility]) (test code [address] [facility] [place] = 1538) [address] URINE [id number] 07:56:00 Test Item Value Reference Range Interpretation Comments CULTURE ([facility]) (test ESCHERICHIA COLI A [...] = 47) <10,000 col/mL skin floraHEPATIC FUNCTION [id number] 06:05:00 Test Item Value Reference Range Interpretation Comments TOTAL PROTEIN (BEAKER) (test code = 7.1 gm/dL 6.0-8.5 770) ALBUMIN (AKER) (test code = 1145) 3.9 g/dL 3.5-5.0 BILIRUBIN TOTAL (BEAKER) (test code 0.4 mg/dL 0.1-1.2 = 377) BILIRUBIN DIRECT (BEAKER) (test 0.2 mg/dL 0.0-0.4 code = 706) ALKALINE PHOSPHATASE (BEAKER) (test 98 U/L 30-115 code = 346) AST (SGOT) (BEAKER) (test code = 19 U/L 5-40 353) ALT (SGPT) (BEAKER) (test code = 36 U/L 5-50 347) [id number] 05:47:00 Test Item Value Reference Range Interpretation [...] for patients with mechanical heart valves.BASIC METABOLIC [id number] 05:46:00 Test Item Value Reference Range Interpretation [...] S NOT APPLICABLE FOR DIALYSIS PATIEN TS. [id number] 05:43:00 Test Item Value Reference Range Interpretation Comments PHOSPHORUS (BEAKER) (test code = 2.6 mg/dL 2.5-4.5 604) [id number] 05:38:00 Test Item Value Reference Range Interpretation Comments MAGNESIUM (BEAKER) (test code = 2.0 mg/dL 1.5-3.0 627) CBC W/PLT COUNT & AUTO [id number] 05:30:00 Test Item Value Reference Range Interpretation [...] PERCENT (BEAKER) (test code = 2801) CALCIUM, [id number] 05:06:00 Test Item Value Reference Range Interpretation Comments CALCIUM IONIZED (BEAKER) (test 1.18 mmol/L 1.12-1.27 code = 698) PH, BLOOD (BEAKER) (test code = 7.45 1810) [id number] 05:21:00 Test Item Value Reference Range Interpretation Comments PHOSPHORUS (BEAKER) (test code = 1.8 mg/dL 2.5-4.5 L 604) CALCIUM, [id number] 05:20:00 Test Item Value Reference Range Interpretation Comments CALCIUM IONIZED (BEAKER) (test 0.92 mmol/L 1.12-1.27 L code = 698) PH, BLOOD (BEAKER) (test code = 7.42 1810) BASIC METABOLIC [id number] 05:18:00 Test Item Value Reference Range Interpretation [...] APPLICABLE FOR DIALYSIS PATIEN TS. HEPATIC FUNCTION [id number] 05:16:00 Test Item Value Reference Range Interpretation [...] (test code = 28 U/L 5-50 347) [id number] 05:09:00 Test Item Value Reference Range Interpretation [...] is 2.5-3.5 for patients with mechanical heart valves.[id number] 05:07:00 Test Item Value Reference Range Interpretation Comments MAGNESIUM ([place]) (test code = 1.2 mg/dL 1.5-3.0 L 627) TROPONIN [id number] 15:48:00 Test Item Value Reference Range Interpretation [...] acidosis, acute neurological disease, and persistent tachyarrhythmia.HEMOGLOBIN [id number] 10:08:00 Test Item Value Reference Range Interpretation Comments HEMOGLOBIN A1C ([place]) (test code = 6.1 % 4.3-6.1 368) CT, CHEST WITH IV CONTRAST- PE TEST [id number] 09:48:00FINAL REPORT CT of the chest, pulmonary [...] to patient's size and/or use of iterative reconst ructive technique. Comparison Film: None Discussion: No filling [...] are patent, no bronchiectasis, or bronchial wall thickening.Partially imaged upper abdomen is unremarkable. Osseous structures demonstrate mild degenerative simpson ges. Impression: No PE is identified. No acute process identified in the thorax. Signed: Osmany Fincheport Verified Date/Time: 12/11/2018 09:48:10 Reading Location: [facility] B[facility] C013X Ortho Consult Reading Room RAD, CHEST, 1 VIEW, NON [id number] 09:10:00Reason for exam:->PULM EDEMAShould this be performed at the bedside?->YesFINAL REPORT Clinical History: PULM EDEMA Comparison Study: None Findings: The heart and lungs are within normal limits. The pleural spaces are clear. No significant bony or soft tissue abnormalities are seen. Impression: No active cardiopulmonary disease. Signed: Tico Rodriguezort Verified Date/Time: 12/11/2018 09:10:32 Reading Location: [facility] Radiology Reading Room COMPREHENSIVE METABOLIC [id number] 07:24:00 Test Item Value Reference Range Interpretation [...] NOT APPLICABLE FOR DIALYSIS PATIEN TS. TROPONIN [id number] 07:24:00 Test Item Value Reference Range Interpretation [...] acidosis, acute neurological disease, and persistent tachyarrhythmia.LIPID [id number] 07:23:00 Test Item Value Reference Range Interpretation [...] 1.5-3.0 627) CBC W/PLT COUNT & AUTO [id number] 07:00:00 Test Item Value Reference Range Interpretation [...]
[2023-07-30] MEDS ORDERED: METOCLOPRAMIDE 10 MG/2mL INJ ONE (14:02)
[2023-07-30] MEDS ORDERED: MORPHINE 2 MG/ML SYR ONE (14:02)
[2023-07-30] MEDS ORDERED: NA CHLORIDE 0.9% 1,000 ML ONE (14:02)
[2023-07-30] MEDS ORDERED: DIPHENHYDRAMINE 50 MG/ML VIAL ONE (14:02)
[2023-07-30 14:19] LABS: Potassium 3.7 mEq/L (3.5-5.1)
[2023-07-30 14:29] LABS: Absolute Lymphocytes (CBC) 1.3 K/uL (0.7-4.9); Hematocrit 42.6 % (36.0-45.0); Lymphocytes % 22.5 % (15.3-44.8); MCV 88.3 fL (80-100); MPV 10.2 fL (7.6-11.3); Platelets 148 thou/uL (152-406); RBC Red Blood Cell Count 4.83 M/uL (3.86-4.86)
--- NOTE | 2023-07-30 14:45 | RAD REPORT ---
EXAM DESCRIPTION: CT - Head C Spine Mpr Wo Con - 07/30/2023 2:12 pm CLINICAL HISTORY: Head and neck injury status post fall. Head and neck pain COMPARISON: 2017 TECHNIQUE: Computed axial tomography of the head and cervical spine was obtained. Sagittal and coronal reconstruction was performed. All CT scans are performed using dose optimization technique as appropriate and may include automated exposure control or mA/KV adjustment according to patient size. FINDINGS: An intracranial bleed is not seen. The ventricles are normal in caliber. Mild to moderate low-density within periventricular, deep and subcortical white matter probably ische leonard changes secondary to small vessel disease. . An extra-axial fluid collection is not noted. Fluid within the visualized sinuses and mastoids is not seen A cervical fracture is not visualized. No dislocation is noted. IMPRESSION: No acute intracranial abnormality is seen. A cervical fracture is not visualized. If the patient continues to have symptoms to suggest intracranial /spinal cord pathology then MRI wou ld be recommended
--- NOTE | 2023-07-30 14:48 | RAD REPORT ---
EXAM DESCRIPTION: John Single View07/30/2023 2:18 pm CLINICAL HISTORY: Chest pain COMPARISON: March 2023 FINDINGS: The lungs appear clear of acute infiltrate. The heart is mildly enlarged. Postsurgical changes involve the chest IMPRESSION: No acute abnormalities displayed
--- NOTE | 2023-07-30 15:15 | EDPHYS ---
Physician Documentation [facility] Name: Cole Cadena Age: 72 yrs Sex: Female : 1950 Arrival Date: 07/30/2023 Time: 13:00 Bed 20 Private MD: ED Physician Rodolfo Park HPI: 07/30 13:37 This 72 yrs old Black Female presents to ER via Wheelchair with complaints of Chest ec2 Pain, Headache, Nausea/Vomiting. 13:38 Patient arrives today due to concern for chest pain as well as head pain. Patient ec2 reports that she been having chest pain, constant ongoing since last night. Patient reports no difficulty breathing, no cough or cold symptoms, no shortness of breath. Patient also complaining of a headache, states that she has had multiple falls, is on a blood thinner. Patient reports of associated nausea without vomiting. Patient reports that she has a history of generalized weakness and has recurrent falls.. Historical: - Allergies: 13:22 Tramadol HCl; cm10 - PMHx: 13:22 Anxiety; Asthma; Depression; GERD; Gout; Hypertension; cm10 - PSHx: 13:22 Ankle; bypass; Cholecystectomy; cm10 - Immunization history:: Adult Immunizations unknown. - Social history:: Smoking status: Patient denies any tobacco usage or history of. ROS: 13:38 Constitutional: as per hpi ec2 Exam: 13:38 Constitutional: GEN: No acute distress HEENT: -Head: atraumatic -Eyes: EOMI CV: ec2 regular rate LUNGS: no respiratory distress ABD: non-tender, soft, nontender, no guarding, not rigid SKIN: no wounds appreciated MSK: No C/T/L spine deformities RUE w/o trauma LUE w/o trauma RLE w/o trauma LLE w/o trauma NEURO: moves all extremities equally, GCS 15 (E4, V5, M6) Vital Signs: 13:20 BP 172 / 109; Pulse 73; Resp 18; Temp 96.9(TE); Pulse Ox 99% ; Weight 90.72 kg (R); cm10 Height 5 ft. 3 in. (R); Pain 10/10; 13:53 BP 180 / 83; Pulse 66; Resp 16 S; Pulse Ox 97% on R/A; Pain 10/10; kc6 15:12 Pulse 72; Resp 16 S; Pulse Ox 95% on R/A; kc6 13:20 Body Mass Index 35.43 (90.72 kg, 160.02 cm) cm10 13:20 Pain Scale: Adult cm10 13:53 Pain Scale: Adult kc6 MDM: 13:04 Patient medically screened. ec2 13:39 ED course: Patient arrives today due to concern for chest pain as well as head pain ec2 with recent falls. Examination remarkable for well-appearing nontoxic dividual is otherwise in no acute distress. Left hand lab work, chest x-ray, CT scan of the head as well as EKG to further assess patient's complaint. Currently considering process such as ACS, intracranial brain bleed, C-spine fracture, electrolyte disturbances. EKG obtained, independently reviewed and interpreted by me, shows normal sinus rhythm, rate of 74, no acute ST segment elevations, nonconcerning intervals.. 14:33 ED course: Patient's lab work remarkable for reassuring metabolic profile, CBC is ec2 overall reassuring, troponin within normal ranges. . 14:56 ED course: Chest x-ray with no acute intrathoracic process. CT of the head and C-spine ec2 with no acute traumatic process identified. . 15:14 ED course: On reassessment patient reports marked improvement in her symptoms. I will ec2 discharge patient home, instructed to follow-up primary care doctor. Return precautions given.. 15:15 Data reviewed: vital signs. ec2 07/30 13:08 Order name: Basic Metabolic Panel; Complete Time: 14:33 ec2 07/30 13:08 Order name: CBC with Diff; Complete Time: 14:33 ec2 07/30 13:08 Order name: Troponin HS; Complete Time: 14:33 ec2 07/30 13:37 Order name: CXR XRAY; Complete Time: 14:56 ec2 07/30 13:37 Order name: CT Head C Spine; Complete Time: 14:56 ec2 07/30 13:08 Order name: EKG; Complete Time: 13:08 ec2 07/30 13:08 Order name: Cardiac monitoring; Complete Time: 13:31 ec2 07/30 13:08 Order name: EKG - Nurse/Tech; Complete Time: 13:31 ec2 07/30 13:08 Order name: IV Saline Lock; Complete Time: 13:59 ec2 07/30 13:08 Order name: Labs collected and sent; Complete Time: 13:59 ec2 07/30 13:08 Order name: O2 Per Protocol; Complete Time: :31 ec2 07/30 13:08 Order name: O2 Sat Monitoring; Complete Time: 13:31 ec2 Administered Medications: 14:00 Drug: morphine IVP or IV 2 mg IVP once over 4 mins Route: IVP; Infused Over: 4 mins; kc6 Site: right antecubital; 15:12 Follow up: Response: No adverse reaction; Pain is decreased; RASS: Drowsy (-1) kc6 14:00 Drug: NS 0.9% IV 1000 ml IV at 1 bolus Per protocol; 1000 mL bolus Route: IV; Rate: 1 kc6 bolus; Site: right antecubital; 15:30 Follow up: IV Status: Completed infusion ap3 14:00 Drug: diphenhydrAMINE IVP 25 mg IVP once Route: IVP; Site: right antecubital; kc6 15:13 Follow up: Response: No adverse reaction kc6 14:00 Drug: metoCLOPramide IVP 10 mg IVP once; over 1 to 2 minutes Route: IVP; Site: right kc6 antecubital; 15:13 Follow up: Response: No adverse reaction; Nausea is decreased kc6 Disposition Summary: 07/30/23 15:14 Discharge Ordered Notes: Location: Home ec2 Condition: Stable ec2 Diagnosis - Chest pain, unspecified ec2 - Headache ec2 Discharge Instructions: - Discharge Summary Sheet ec2 - Nonspecific Chest Pain, Adult ec2 Forms: - Medication Reconciliation Form ec2 - Thank You Letter ec2 - Antibiotic Education ec2 - Prescription Opioid Use ec2 - Patient Portal Instructions ec2 - Leadership Thank You Letter ec2 Signatures: Dispatcher [employer] Doris Arriaga RN RN kc6 Mirta Bo RN RN cm10 Rodolfo Park MD MD ec2 Consuelo Naranjo RN ap3
--- NOTE | 2023-07-30 15:15 | ER ---
Nurse's Notes [facility] Name: Cole Cadena Age: 72 yrs Sex: Female : 1950 Arrival Date: 07/30/2023 Time: 13:00 Bed 20 Private MD: Diagnosis: Chest pain, unspecified;Headache Presentation: 07/30 13:20 Chief complaint: Patient states: right sided headache, chest pain, and states that she cm10 fell last night. Pt states that she hit her head and she fell "because I have bad balance." Pt is on blood thinners. Coronavirus screen: Vaccine status: Patient reports being unvaccinated. Client denies travel out of the [place] in the last 14 days. Ebola Screen: Patient denies travel to an Ebola-affected area in the 21 days before illness onset. No symptoms or risks identified at this time. Initial Sepsis Screen: Does the patient meet any 2 criteria? No. Patient's initial sepsis screen is negative. Does the patient have a suspected source of infection? No. Patient's initial sepsis screen is negative. Risk Assessment: Do you want to hurt yourself or someone else? Patient reports no desire to harm self or others. Onset of symptoms was July 30, 2023. 13:20 Method Of Arrival: Wheelchair cm10 13:20 Acuity: DYLAN 2 cm10 Historical: - Allergies: 13:22 Tramadol HCl; cm10 - PMHx: 13:22 Anxiety; Asthma; Depression; GERD; Gout; Hypertension; cm10 - PSHx: 13:22 Ankle; bypass; Cholecystectomy; cm10 - Immunization history:: Adult Immunizations unknown. - Social history:: Smoking status: Patient denies any tobacco usage or history of. Screenin:50 [facility] ED Fall Risk Assessment (Adult) History of falling in the last 3 months, kc6 including since admission No falls in past 3 months (0 pts) Confusion or Disorientation No (0 pts) Intoxicated or Sedated No (0 pts) Impaired Gait No (0 pts) Mobility Assist Device Used No (0 pt) Altered Elimination No (0 pt) Score/Fall Risk Level 0 - 2 = Low Risk. Abuse screen: Denies threats or abuse. Denies injuries from another. Nutritional screening: No deficits noted. Tuberculosis screening: No symptoms or risk factors identified. Assessment: 13:51 General: Appears in no apparent distress. uncomfortable, obese, well groomed, Behavior kc6 is cooperative, appropriate for age, anxious, crying, restless. Pain: Complains of pain in chest, head Pain does not radiate. Pain currently is 10 out of 10 on a pain scale. Pain began 1 day ago. 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 Full function Gait is unsteady, Speech is normal, Facial symmetry appears normal, Pupils are PERRLA, Intact Reports headache. Cardiovascular: Reports chest pain, Heart tones S1 S2 present Capillary refill < 3 seconds Rhythm is sinus rhythm. Respiratory: Airway is patent Trachea midline Respiratory effort is even, unlabored, Respiratory pattern is regular, symmetrical, Denies shortness of breath. GI: Reports nausea, vomiting, Patient currently denies diarrhea. : No signs and/or symptoms were reported regarding the genitourinary system. EENT: No signs and/or symptoms were reported regarding the EENT system. Derm: No signs and/or symptoms reported regarding the dermatologic system. Skin is intact, is healthy with good turgor, Skin is pink, warm \\T\\ dry. Musculoskeletal: No signs and/or symptoms reported regarding the musculoskeletal system. Circulation, motion, and sensation intact. Capillary refill < 3 seconds, Range of motion: intact in all extremities. 14:51 Reassessment: Patient appears in no apparent distress at this time. No changes from kc6 previously documented assessment. Patient and/or family updated on plan of care and expected duration. Pain level reassessed. Patient is alert, oriented x 3, equal unlabored respirations, skin warm/dry/pink. 15:51 Reassessment: Patient appears in no apparent distress at this time. No changes from kc6 previously documented assessment. Patient and/or family updated on plan of care and expected duration. Pain level reassessed. Patient is alert, oriented x 3, equal unlabored respirations, skin warm/dry/pink. 16:00 Reassessment: d/c pending a ride back home. daughter is on her way. [facility] Vital Signs: 13:20 BP 172 / 109; Pulse 73; Resp 18; Temp 96.9(TE); Pulse Ox 99% ; Weight 90.72 kg (R); cm10 Height 5 ft. 3 in. (R); Pain 10/10; 13:53 BP 180 / 83; Pulse 66; Resp 16 S; Pulse Ox 97% on R/A; Pain 10/10; kc6 15:12 Pulse 72; Resp 16 S; Pulse Ox 95% on R/A; kc6 13:20 Body Mass Index 35.43 (90.72 kg, 160.02 cm) cm10 13:20 Pain Scale: Adult cm10 13:53 Pain Scale: Adult kc6 ED Course: 13:00 Patient arrived in ED. im 13:03 Rodolfo Park MD is Attending Physician. ec2 13:22 Triage completed. cm10 13:22 Arm band placed on Patient placed in an exam room, on a stretcher. EKG completed in cm10 triage. Results shown to MD. 13:23 EKG done, by ED staff, reviewed by Rodolfo Park MD. 10 13:31 Doris Gunn, RN is Primary Nurse. kc6 13:49 Radiology exam delayed due to IV insertion attempt and/or patient not having mw3 appropriate IV at this time. needs pain meds prior to CT. 13:50 Missed attempt(s): 22 gauge in left antecubital area. Patient maintains SpO2 saturation kc6 greater than 95% on room air. 13:51 Patient has correct armband on for positive identification. Placed in gown. Bed in low kc6 position. Call light in reach. Side rails up X2. Adult w/ patient. Client placed on continuous cardiac and pulse oximetry monitoring. NIBP monitoring applied. [employer] hcm consultant on. 14:13 CT Head C Spine In Process Unspecified. EDMS 14:19 CXR XRAY In Process Unspecified. EDMS 15:29 No provider procedures requiring assistance completed. IV discontinued, intact, ap3 bleeding controlled, No redness/swelling at site. Pressure dressing applied. 15:30 Provided Education on: discharge instructions. ap3 Administered Medications: 14:00 Drug: morphine IVP or IV 2 mg IVP once over 4 mins Route: IVP; Infused Over: 4 mins; kc6 Site: right antecubital; 15:12 Follow up: Response: No adverse reaction; Pain is decreased; RASS: Drowsy (-1) kc6 14:00 Drug: NS 0.9% IV 1000 ml IV at 1 bolus Per protocol; 1000 mL bolus Route: IV; Rate: 1 kc6 bolus; Site: right antecubital; 15:30 Follow up: IV Status: Completed infusion ap3 14:00 Drug: diphenhydrAMINE IVP 25 mg IVP once Route: IVP; Site: right antecubital; kc6 15:13 Follow up: Response: No adverse reaction kc6 14:00 Drug: metoCLOPramide IVP 10 mg IVP once; over 1 to 2 minutes Route: IVP; Site: right kc6 antecubital; 15:13 Follow up: Response: No adverse reaction; Nausea is decreased kc6 Medication: 15:30 VIS not applicable for this client. ap3 Outcome: 15:14 Discharge ordered by . ec2 15:29 Discharged to home with family, ap3 15:29 Condition: good 15:29 Discharge instructions given to patient, Instructed on discharge instructions, follow up and referral plans. Demonstrated understanding of instructions, follow-up care, 16:30 Patient left the ED. kc6 Signatures: Dispatcher [employer] Consuelo Nieves RN RN ap3 Tabatha Bailey mw3 Doris Gunn RN RN kc6 Alberta Rossi Clarissa, RN RN cm10 Rodolfo Park MD MD ec2 Corrections: (The following items were deleted from the chart) 16:00 15:34 Reassessment: ap3 kc6
--- NOTE | 2023-07-31 11:57 | EKG ---
Test Date: 2023-07-30 Test Time: 13:18:21 Insurance Policy Clerk: CHANCE MEASUREMENT RESULTS: Intervals: Rate: 74 MA: 174 QRSD: 84 QT: 380 QTc: 421 [place]: P: 79 MA: 174 QRS: 22 T: 62 INTERPRETIVE STATEMENTS: Normal sinus rhythm Cannot rule out Anterior infarct, age undetermined Abnormal ECG Compared to ECG 03/17/2023 22:25:34 Myocardial infarct finding now present T-wave abnormality no longer present Electronically Signed On 07-31-23 11:54:20 CDT by Eduardo Urias
== END 2023-07-30 16:30 | disposition home or self-care (01) ==
LOC: ER 13:00
DX: R07.9 Chest pain, unspecified (principal); R51.9 Headache, unspecified; S09.90XA Unspecified injury of head, initial encounter; W18.30XA Fall on same level, unspecified, initial encounter; Z88.8 Allergy status to other drugs, medicaments and biological substances; F41.9 Anxiety disorder, unspecified; J45.909 Unspecified asthma, uncomplicated; I10 Essential (primary) hypertension
CPT/HCPCS: 85025; 80048; 36415; 84484; 70450; 72125; 71045; J2765; J1200; J2270; J7030; 93005

== ENCOUNTER → 2023-11-06 | Emergency (ER) | payer OTHER ==
[~2023-11-06] MED LIST: ACETAMINOPHEN 500 MG TAB ONE; FENTANYL CITR 100 MCG/2 ML ONE; HYDRALAZINE HCL 20 MG/ML VIAL ONE; METOCLOPRAMIDE 10 MG/2mL INJ ONE; MORPHINE 4 MG/ML SYR ONE; ONDANSETRON 4 MG/2 ML VIAL ONE
[2023-11-06 05:40] LABS: Absolute Lymphocytes (CBC) 1.4 K/uL (0.7-4.9); Hematocrit 40.7 % (36.0-45.0); Lymphocytes % 25.9 % (15.3-44.8); MCV 86.6 fL (80-100); Platelets 181 thou/uL (152-406)
[2023-11-06 05:46] LABS: Protime INR 1.15
[2023-11-06 05:54] LABS: ALT/SGPT 79 U/L (13-56); AST/SGOT 48 U/L (15-37); Albumin 3.6 g/dL (3.4-5.0); Alkaline Phosphatase 134 U/L (45-117); BUN Blood Urea Nitrogen 18 mg/dL (7-18); Bicarbonate 26 mEq/L (21-32); Bilirubin Total 0.3 mg/dL (0.2-1.0); Glomerular Filtration Rate 63 ml/min (=/>90); Glucose Level 122 mg/dL (74-106); Magnesium 1.9 mg/dL (1.6-2.4); Potassium 3.5 mEq/L (3.5-5.1); Protein, Total 7.8 g/dL (6.4-8.2); Sodium Level 137 mEq/L (136-145); Troponin High Sensitivity 11.5 pg/mL (<58.9)
[2023-11-06 06:12] LABS: Bilirubin Direct < 0.1 mg/dL (0-0.2); Bilirubin Indirect, Calculated ND mg/dL (0.2-0.8)
--- NOTE | 2023-11-06 06:48 | EDPHYS ---
Physician Documentation [facility] Name: Cole Cadena Age: 72 yrs Sex: Female : 1950 Arrival Date: 11/06/2023 Time: 04:12 Bed 2 Private MD: ED Physician Samy Dawson HPI: 11/06 04:51 This 72 yrs old Black Female presents to ER via Unassigned with complaints of SEVERE sp4 MIGRAINE, Back Pain, Nausea. 05:46 72-year-old female presents with acute onset migraine headache moderate to severe sp4 headache. Associated with nausea. . Historical: - Allergies: 04:56 Tramadol HCl; vc1 - PMHx: 04:56 Anxiety; Asthma; Depression; GERD; Gout; Hypertension; vc1 - PSHx: 04:56 Ankle; bypass; Cholecystectomy; vc1 - Immunization history:: Client reports having NOT received the Covid vaccine. Flu vaccine is not up to date. - Social history:: Smoking status: Patient denies any tobacco usage or history of. - Family history:: not pertinent. ROS: 05:46 Constitutional: Negative for fever, chills, and weight loss, positive headache, sp4 positive nausea Eyes: Negative for injury, pain, redness, and discharge, ENT: Negative for injury, pain, and discharge, Neck: Negative for injury, pain, and swelling, Cardiovascular: Negative for chest pain, palpitations, and edema, Respiratory: Negative for shortness of breath, cough, wheezing, and pleuritic chest pain, Abdomen/GI: Negative for abdominal pain, nausea, vomiting, diarrhea, and constipation, Back: Negative for injury and pain, 05:46 All other systems are negative, Exam: 05:45 ECG was reviewed by the Attending Physician. 0540 sp4 05:46 Constitutional: This is a well developed, well nourished patient who is awake, alert, sp4 and in no acute distress. Head/Face: Normocephalic, atraumatic. Eyes: Pupils equal round and reactive to light, extra-ocular motions intact. Lids and lashes normal. Conjunctiva and sclera are not injected. Cornea within normal limits. Periorbital areas with no swelling, redness, or edema. ENT: Nares patent. No nasal discharge, no septal abnormalities noted. Tympanic membranes are normal and external auditory canals are clear. Oropharynx with no redness, swelling, or masses, exudates, or evidence of obstruction, uvula midline. Mucous membranes moist. Neck: Trachea midline, no thyromegaly or masses palpated, and no cervical lymphadenopathy. Supple, full range of motion without nuchal rigidity, or vertebral point tenderness. Chest/axilla: Normal chest wall appearance and motion. Nontender with no deformity. No lesions are appreciated. Cardiovascular: Regular rate and rhythm with a normal S1 and S2. No gallops, murmurs, or rubs. Normal PMI, no JVD. No pulse deficits. Respiratory: Lungs have equal breath sounds bilaterally, clear to auscultation and percussion. No rales, rhonchi or wheezes noted. No increased work of breathing, no retractions or nasal flaring. Abdomen/GI: Soft, non-tender, with normal bowel sounds. No distension or tympany. No guarding or rebound. No evidence of tenderness throughout. Back: No spinal tenderness. No costovertebral tenderness. Skin: Warm, dry with normal turgor. Normal color with no rashes, no lesions, and no evidence of cellulitis. MS/ Extremity: Pulses equal, no cyanosis. Neurovascular intact. Full, normal range of motion. Neuro: Awake and alert, GCS 15, oriented to person, place, time, and situation. Cranial nerves II-XII grossly intact. Motor strength 5/5 in all extremities. Sensory grossly intact. Psych: Awake, alert, with orientation to person, place and time. Behavior, mood, and affect are within normal limits Vital Signs: 04:53 Weight 90.72 kg; Height 5 ft. 2 in. ; Pain 10/10; vc1 06:00 BP 170 / 96; Pulse 72; Resp 13; Pulse Ox 97% on R/A; jj7 04:53 Body Mass Index 36.58 (90.72 kg, 157.48 cm) vc1 04:53 Pain Scale: Adult vc1 NIH Stroke Scale Scores: 05:12 NIHSS Score: 0 sp4 [place] Coma Score: 05:12 Eye Response: spontaneous(4). Motor Response: obeys commands(6). Verbal Response: sp4 oriented(5). Total: 15. MDM: 04:52 Patient medically screened. sp4 05:47 Differential diagnosis: arthritis, Fatigue Migraine headache. Data reviewed: vital sp4 signs, nurses notes, lab test result(s), EKG, radiologic studies, CT scan, plain films. ED course: CLINICAL HISTORY: STROKE ALERT COMPARISON: 07/30/2023. TECHNIQUE: CT HEAD WITHOUT IV CONTRAST on 11/06/2023 4:52 AM CATHOLIC PRIEST This exam was performed according to our departmental dose-optimization program, which includes automated exposure control, adjustment of the mA and/or kV according to patient size and/or use of iterative reconstruction technique. FINDINGS: There is no acute hemorrhage, mass effect or midline shift. Powers-white differentiation is preserved. There is no hydrocephalus. There is no significant volume loss for age. The calvarium is intact. Orbits and globes are unremarkable. The paranasal sinuses are clear. Mastoid air cells are clear. IMPRESSION: No acute intracranial findings. . 06:45 Consideration of Admission/Observation Escalation of care including sp4 admission/observation considered. ED course: Exam patient has no sign of CVA, patient's headache is improved and blood pressure is improved. Patient stable for discharge home with p.o. as needed Fioricet. . 11/06 04:52 Order name: Basic Metabolic Panel; Complete Time: 06:39 sp4 11/06 04:52 Order name: CBC with Diff; Complete Time: 06:39 sp4 11/06 04:52 Order name: Hepatic Function; Complete Time: 06:39 sp4 11/06 04:52 Order name: High Sensitivity Troponin; Complete Time: 06:39 sp4 11/06 04:52 Order name: Magnesium; Complete Time: 06:39 sp4 11/06 04:52 Order name: Protime (+inr); Complete Time: 06:39 sp4 11/06 04:52 Order name: Ptt, Activated; Complete Time: 06:39 sp4 11/06 05:27 Order name: Glucose, Ancillary Testing; Complete Time: 05:33 EDMS 11/06 04:52 Order name: CT Stroke Brain w/o Contrast 4 11/06 04:52 Order name: Stroke CXR 1 View 11/06 04:52 Order name: EKG; Complete Time: 04:53 sp4 11/06 04:52 Order name: Accucheck; Complete Time: 05:15 sp4 11/06 04:52 Order name: Cardiac monitoring; Complete Time: 05:15 sp4 11/06 04:52 Order name: EKG - Nurse/Tech; Complete Time: 06:00 sp4 11/06 04:52 Order name: IV Saline Lock; Complete Time: 05:21 sp4 11/06 04:52 Order name: Labs collected and sent; Complete Time: 05:22 sp4 11/06 04:52 Order name: NPO; Complete Time: 05:15 sp4 11/06 04:52 Order name: O2 Per Protocol; Complete Time: 05:24 sp4 11/06 04:52 Order name: O2 Sat Monitoring; Complete Time: 05:15 sp4 11/06 04:52 Order name: Stroke Swallow Screen; Complete Time: 06:00 sp4 EC:45 Rate is 68 beats/min. Rhythm is regular, Normal Sinus Rhythm. QRS [place] is Normal. HI sp4 interval is normal. QRS interval is normal. QT interval is normal. No Q waves. T waves are Normal. No ST changes noted. Clinical impression: Normal ECG. Interpreted by me. Reviewed by me. Administered Medications: 05:30 Drug: metoCLOPramide IVP 10 mg IVP once; over 1 to 2 minutes Route: IVP; Site: [address]; 06:11 Follow up: Response: No adverse reaction jj7 05:30 Drug: Acetaminophen PO 1000 mg PO once Route: PO; jj7 06:11 Follow up: Response: Adverse reaction, Physician notified jj7 05:31 Drug: hydrALAZINE IVP 10 mg IVP once Route: IVP; Site: right antecubital; jj7 06:10 Follow up: Response: Blood pressure is lowered jj7 05:31 Drug: morphine IVP or IV 4 mg IVP once over 4 mins Route: IVP; Infused Over: 4 mins; jj7 Site: right antecubital; 06:10 Follow up: Response: Pain is unchanged, physician notified jj7 05:31 Drug: Ondansetron IVP 4 mg IVP once; over 2 minutes Route: IVP; Site: right antecubital;jj7 06:10 Follow up: Response: No adverse reaction jj7 06:09 Drug: fentaNYL (PF) IVP 50 mcg IVP once Route: IVP; Site: right antecubital; jj7 06:42 Drug: hydrALAZINE IVP 10 mg IVP once Route: IVP; Site: right antecubital; jj7 Disposition Summary: 11/06/23 06:47 Discharge Ordered Notes: Location: Home sp4 Problem: new sp4 Symptoms: have improved sp4 Condition: Stable sp4 Diagnosis - Migraine without aura, not intractable sp4 - Headache sp4 Followup: sp4 - With: Private Physician - When: 7 - 10 days - Reason: Recheck today's complaints Discharge Instructions: - Discharge Summary Sheet sp4 - General Headache Without Cause sp4 Forms: - Patient Portal Instructions sp4 Prescriptions: - Fioricet 50-300-40 mg Oral capsule - take 1 capsule ORAL route every 8 hours PRN headache; 30 capsule; Refills: 0, sp4 Product Selection Permitted NIH Stroke Scale - NIH Stroke Score Date: 11/06/2023 Time: 05:12 Total Score = 0 10. Dysarthria (speech clarity - read or repeat words) - 0(Normal) 11. Extinction and Inattention (visual/tactile/auditory/spatial/personal) - 0(No abnormality) 1a. Level of Consciousness (LOC) - 0(Alert) 1b. Level of Consciousness (LOC) (Month \T\ Age) - 0(Both) 1c. LOC Commands (Open \T\ Closes Eyes/Umbrella Mender) - 0(Both) 2. Best Gaze (Lateral Gaze Paresis) - 0(Normal) 3. Visual Field Loss - 0(No visual loss) 4. Facial Palsy - 0(Normal) 5a. Left Arm: Motor (10-second hold) - 0(No drift) 5b. Right Arm: Motor (10-second hold) - 0(No drift) 6a. Left Leg: Motor (5-second hold - always test supine) - 0(No drift) 6b. Right Leg: Motor (5-second hold - always test supine) - 0(No drift) 7. Limb Ataxia (finger/nose \T\ heel/william - test with eyes open) - 0(Absent) 8. Sensory Loss (pinprick arms/legs/face) - 0(Normal) 9. Best Language: Aphasia (description/naming/reading) - 0(No aphasia) Initials: sp4 Signatures: Dispatcher [employer] EDMS Batool Jackson RN RN vc1 Kathi Palomino RN RN jj7 Samy Dawson MD MD sp4
--- NOTE | 2023-11-06 06:48 | ER ---
Nurse's Notes [facility] Name: Cole Cadena Age: 72 yrs Sex: Female : 1950 Arrival Date: 11/06/2023 Time: 04:12 Bed 2 Private MD: Diagnosis: Migraine without aura, not intractable;Headache Presentation: 11/06 04:53 Chief complaint: Patient states: I have a really bad headache. I'm having trouble vc1 swallowing. and I feel weak on my right side. Coronavirus screen: Vaccine status: Patient reports being unvaccinated. Client denies travel out of the [place] in the last 14 days. At this time, the client does not indicate any symptoms associated with coronavirus-19. Ebola Screen: Patient negative for fever greater than or equal to 101.5 degrees Fahrenheit, and additional compatible Ebola Virus Disease symptoms Patient denies exposure to infectious person. Patient denies travel to an Ebola-affected area in the 21 days before illness onset. No symptoms or risks identified at this time. Initial Sepsis Screen: Does the patient meet any 2 criteria? No. Patient's initial sepsis screen is negative. Does the patient have a suspected source of infection? No. Patient's initial sepsis screen is negative. Risk Assessment: Do you want to hurt yourself or someone else? Patient reports no desire to harm self or others. Note Patient is unsure when the symptoms started she stated after midnight but possibly before 2 am. Onset of symptoms is unknown. Transition of care: patient was not received from another setting of care. 04:53 Method Of Arrival: Wheelchair vc1 04:53 Acuity: DYLAN 2 vc1 Triage Assessment: 04:57 General: Appears in no apparent distress. uncomfortable, Behavior is cooperative, vc1 crying. General: Appears Behavior is. Pain: Complains of pain in right hinduism Pain does not radiate. Pain currently is 10 out of 10 on a pain scale. Quality of pain is described as sharp, Also complains of nausea. EENT: No deficits noted. No signs and/or symptoms were reported regarding the EENT system. Neuro: Level of Consciousness is awake, obeys commands, Oriented to person, place, time, situation, Appropriate for age Reports headache in right parietal area, that is the "worst ever", weakness in right arm and right leg. Cardiovascular: No deficits noted. Respiratory: Airway is patent Respiratory effort is even, unlabored, Respiratory pattern is regular, symmetrical. GI: No deficits noted. No signs and/or symptoms were reported involving the gastrointestinal system. : No deficits noted. No signs and/or symptoms were reported regarding the genitourinary system. Derm: No deficits noted. No signs and/or symptoms reported regarding the dermatologic system. Musculoskeletal: Circulation, motion, and sensation intact. Reports pain in back. Historical: - Allergies: 04:56 Tramadol HCl; vc1 - PMHx: 04:56 Anxiety; Asthma; Depression; GERD; Gout; Hypertension; vc1 - PSHx: 04:56 Ankle; bypass; Cholecystectomy; vc1 - Immunization history:: Client reports having NOT received the Covid vaccine. Flu vaccine is not up to date. - Social history:: Smoking status: Patient denies any tobacco usage or history of. - Family history:: not pertinent. Screenin:59 Abuse screen: Denies threats or abuse. Nutritional screening: No deficits noted. vc1 Tuberculosis screening: No symptoms or risk factors identified. 05:16 [facility] ED Fall Risk Assessment (Adult) History of falling in the last 3 months, jj7 including since admission Yes- single mechanical fall (1 pt) Confusion or Disorientation No (0 pts) Intoxicated or Sedated No (0 pts) Impaired Gait No (0 pts) Mobility Assist Device Used Yes (1 pt) Altered Elimination No (0 pt) Score/Fall Risk Level 0 - 2 = Low Risk Oriented to surroundings, Maintained a safe environment, Educated pt \\T\\ family on fall prevention, incl call for assistance when getting out of bed. Assessment: 05:16 Neuro: No deficits noted. Reports headache in right frontal area. jj7 06:46 Reassessment: Patient appears in no apparent distress at this time. Patient and/or jw7 family updated on plan of care and expected duration. Pain level reassessed. Patient is alert, oriented x 3, equal unlabored respirations, skin warm/dry/pink. Vital Signs: 04:53 Weight 90.72 kg; Height 5 ft. 2 in. ; Pain 10/10; vc1 06:00 BP 170 / 96; Pulse 72; Resp 13; Pulse Ox 97% on R/A; jj7 04:53 Body Mass Index 36.58 (90.72 kg, 157.48 cm) vc1 04:53 Pain Scale: Adult vc1 Lovely Coma Score: 05:12 Eye Response: spontaneous(4). Motor Response: obeys commands(6). Verbal Response: sp4 oriented(5). Total: 15. NIH Stroke Scale Scores: 05:12 NIHSS Score: 0 sp4 ED Course: 04:18 Patient arrived in ED. gm2 04:51 Samy Dawson MD is Attending Physician. sp4 04:56 Triage completed. vc1 04:57 Arm band placed on right wrist. vc1 05:02 CT Stroke Brain w/o Contrast In Process Unspecified. EDMS 05:16 Patient has correct armband on for positive identification. Placed in gown. Bed in low jj7 position. Call light in reach. Side rails up X2. Client placed on continuous cardiac and pulse oximetry monitoring. NIBP monitoring applied. front desk monitor on. Pulse ox on. Warm blanket given. 05:16 Inserted saline lock: 22 gauge in right antecubital area, using aseptic technique. jj7 ,using aseptic technique. DIFFUSIC INSERTED BY [facility] Blood collected. 05:24 UDS Sent. jj7 05:24 Ptt, Activated Sent. jj7 05:24 Protime (+inr) Sent. jj7 05:24 Magnesium Sent. jj7 05:24 High Sensitivity Troponin Sent. jj7 05:24 Hepatic Function Sent. jj7 05:24 CBC with Diff Sent. jj7 05:24 Basic Metabolic Panel Sent. jj7 05:34 Stroke CXR 1 View In Process Unspecified. EDMS 07:17 No provider procedures requiring assistance completed. IV discontinued, intact, ld1 bleeding controlled, No redness/swelling at site. Administered Medications: 05:30 Drug: metoCLOPramide IVP 10 mg IVP once; over 1 to 2 minutes Route: IVP; Site: right jj7 antecubital; 06:11 Follow up: Response: No adverse reaction jj7 05:30 Drug: Acetaminophen PO 1000 mg PO once Route: PO; jj7 06:11 Follow up: Response: Adverse reaction, Physician notified jj7 05:31 Drug: hydrALAZINE IVP 10 mg IVP once Route: IVP; Site: right antecubital; jj7 06:10 Follow up: Response: Blood pressure is lowered jj7 05:31 Drug: morphine IVP or IV 4 mg IVP once over 4 mins Route: IVP; Infused Over: 4 mins; jj7 Site: right antecubital; 06:10 Follow up: Response: Pain is unchanged, physician notified j 05:31 Drug: Ondansetron IVP 4 mg IVP once; over 2 minutes Route: IVP; Site: right antecubital;jj7 06:10 Follow up: Response: No adverse reaction jj7 06:09 Drug: fentaNYL (PF) IVP 50 mcg IVP once Route: IVP; Site: right antecubital; jj7 06:42 Drug: hydrALAZINE IVP 10 mg IVP once Route: IVP; Site: right antecubital; jj7 Medication: 05:16 VIS not applicable for this client. jj7 Outcome: 06:47 Discharge ordered by sp4 07:18 Discharged to home via wheelchair, with family, ld1 07:18 Condition: stable 07:18 Discharge instructions given to patient, Instructed on discharge instructions, follow up and referral plans. medication usage, Demonstrated understanding of instructions, follow-up care, medications, Prescriptions given X 1, 07:18 Patient left the ED. ld1 NIH Stroke Scale - NIH Stroke Score Date: 11/06/2023 Time: 05:12 Total Score = 0 10. Dysarthria (speech clarity - read or repeat words) - 0(Normal) 11. Extinction and Inattention (visual/tactile/auditory/spatial/personal) - 0(No abnormality) 1a. Level of Consciousness (LOC) - 0(Alert) 1b. Level of Consciousness (LOC) (Month \\T\\ Age) - 0(Both) 1c. LOC Commands (Open \\T\\ Closes Eyes/Box Car Bracer) - 0(Both) 2. Best Gaze (Lateral Gaze Paresis) - 0(Normal) 3. Visual Field Loss - 0(No visual loss) 4. Facial Palsy - 0(Normal) 5a. Left Arm: Motor (10-second hold) - 0(No drift) 5b. Right Arm: Motor (10-second hold) - 0(No drift) 6a. Left Leg: Motor (5-second hold - always test supine) - 0(No drift) 6b. Right Leg: Motor (5-second hold - always test supine) - 0(No drift) 7. Limb Ataxia (finger/nose \\T\\ heel/william - test with eyes open) - 0(Absent) 8. Sensory Loss (pinprick arms/legs/face) - 0(Normal) 9. Best Language: Aphasia (description/naming/reading) - 0(No aphasia) Initials: sp4 Signatures: Dispatcher [employer] EDRosey Hunt RN RN ld1 Batool Jackson RN RN vc1 Kendra Arredondo RN RN jw7 Kathi Palomino RN RN jj7 Samy Dawson MD MD sp4 Rose Knight gm2
[2023-11-06 12:50] VITALS: BP 129/58; TEMP 95.5; O2SAT 100
--- NOTE | 2023-11-06 17:39 | RAD REPORT ---
EXAM DESCRIPTION: CT - Ct Stroke Brain Wo Cont - 11/06/2023 6:51 am ADDENDUM #1 Critical findings were discussed with and acknowledged by Dr. Samy Dawson MD on 11/06/2023 5:3 2 AM RESEARCH PHARMACIST. Electronically signed by: Zelalem Renteria MD 11/06/2023 05:47 AM RESEARCH PHARMACIST End of Addendum CLINICAL HISTORY: STROKE ALERT COMPARISON: 07/30/2023. TECHNIQUE: CT HEAD WITHOUT IV CONTRAST on 11/06/2023 4:52 AM RESEARCH PHARMACIST This exam was performed according to our departmental dose-optimization program, which includes autom ated exposure control, adjustment of the mA and/or kV according to patient size and/or use of iterati ve reconstruction technique. FINDINGS: There is no acute hemorrhage, mass effect or midline shift. Powers-white differentiation is preserved. There is no hydrocephalus. There is no significant volume loss for age. The calvarium is intact. Orbits and globes are unremarkable. The paranasal sinuses are clear. Mastoid air cells are clear. IMPRESSION: No acute intracranial findings. Electronically signed by: Zelalem Renteria MD 11/06/2023 05:28 AM RESEARCH PHARMACIST Due to temporary technical issues with the PACS/Fluency reporting system, reports are being signed by the in house radiologists without review as a courtesy to insure prompt reporting. The interpreting radiologist is fully responsible for the content of the report.
--- NOTE | 2023-11-06 17:40 | RAD REPORT ---
EXAM DESCRIPTION: RAD - Chest Single View - 11/06/2023 5:32 am CLINICAL HISTORY: Headaches COMPARISON: December 10, 2018 FINDINGS: The lungs are clear. There is no pleural effusion or pneumothorax. The cardiomediastinal s ilhouette is without acute process. Postmedian sternotomy changes. The osseous structures are without acute process. IMPRESSION: No acute process. RECOMMENDATIONS: Electronically signed by: Eagle Hines MD 11/06/2023 07:23 AM PEDIATRIC NEUROPSYCHOLOGIST Due to temporary technical issues with the PACS/Fluency reporting system, reports are being signed by the in house radiologists without review as a courtesy to insure prompt reporting. The interpreting radiologist is fully responsible for the content of the report.
== END ==
LOC: ER 04:12
DX: G43.009 Migraine without aura, not intractable, without status migrainosus (principal); I10 Essential (primary) hypertension; Z88.5 Allergy status to narcotic agent; Z28.310 Unvaccinated for COVID-19
CPT/HCPCS: 93005; 85025; 80048; 36415; 83735; 85610; 82947; 80076; 85730; 84484; 70450; 71045; J0360; J2765; J3010; J2405

== ENCOUNTER 2024-09-17 19:58 | Emergency (ER) | payer OTHER ==
[2024-09-17] MEDS ORDERED: DIPHENHYDRAMINE 50 MG/ML VIAL ONE (20:36)
[2024-09-17] MEDS ORDERED: METOCLOPRAMIDE 10 MG/2mL INJ ONE (20:36)
[2024-09-17] MEDS ORDERED: MORPHINE 4 MG/ML SYR ONE (20:36)
[2024-09-17 20:47] LABS: Absolute Basophils 0.1 K/uL (0-0.5); Absolute Eosinophils 0.1 K/uL (0-0.5); Absolute Lymphocytes (CBC) 1.7 K/uL (0.7-4.9); Absolute Monocytes 0.5 K/uL (0.1-1.3); Absolute Neutrophil 3.4 K/uL (1.8-8.0); Basophils % 1.3 % (0-1.3); Eosinophils % 1.7 % (0-4.4); Hematocrit 41.2 % (36.0-45.0); Hemoglobin 13.5 g/dL (12.0-15.0); Lymphocytes % 29.6 % (15.3-44.8); MCHC 32.9 g/dL (32.0-36.0); MCV 88.2 fL (80-100); MPV 9.5 fL (7.6-11.3); Monocytes % 8.4 % (3.3-12.3); Nucleated Red Blood Cells % 0.2 % (0-0); Platelets 156 thou/uL (152-406); RBC Red Blood Cell Count 4.67 M/uL (3.86-4.86); Red Cell Distribution Width 13.5 % (12.1-15.2)
[2024-09-17 20:57] LABS: ALT/SGPT 43 U/L (13-56); AST/SGOT 36 U/L (15-37); Albumin 3.5 g/dL (3.4-5.0); Albumin/Globulin Ratio 0.9 (1.1-1.8); Alkaline Phosphatase 109 U/L (45-117); Anion Gap 6.8 mEq/L (5.0-15.0); BUN Blood Urea Nitrogen 25 mg/dL (7-18); Bicarbonate 28 mEq/L (21-32); Bilirubin Total 0.3 mg/dL (0.2-1.0); Globulin 3.8 g/dL (2.3-3.5); Glomerular Filtration Rate 48 ml/min (=/>90); Glucose Level 101 mg/dL (74-106); Potassium 3.8 mEq/L (3.5-5.1); Protein, Total 7.3 g/dL (6.4-8.2); Sodium Level 141 mEq/L (136-145); Troponin High Sensitivity 10.5 pg/mL (<58.9)
[2024-09-17 21:00] LABS: Bilirubin Direct < 0.2 mg/dL (0-0.2); Bilirubin Indirect, Calculated 0.1 mg/dL (0.2-0.8)
--- NOTE | 2024-09-17 21:25 | RAD REPORT ---
EXAM: CT brain without contrast HISTORY: DIZZINESS COMPARISON: 11/06/2023 TECHNIQUE: Multiple contiguous axial images were obtained and a CT of the brain without contrast. Sag ittal and coronal reformats were performed. One or more of the following dose reduction techniques were used: Automated exposure control, adjust ment of the mA and/or kV according to patient size, and/or iterative reconstruction. FINDINGS: No evidence of hydrocephalus, intracranial hemorrhage, or extra-axial fluid collection. Mild brain atrophy with mild periventricular and deep white matter chronic microvascular ischemic ch anges present. No evidence of midline shift or areas of brain edema. Mild vertebral atherosclerosis. The calvarium is intact. The visualized paranasal sinuses and mastoid air cells are essentially clear . IMPRESSION: No evidence of acute intracranial abnormality.
--- NOTE | 2024-09-17 21:37 | RAD REPORT ---
EXAM: CT CHEST, ABDOMEN AND PELVIS WITHOUT CONTRAST CLINICAL INDICATION: fall, pelvic pain TECHNIQUE: CT chest, abdomen and pelvis was performed without contrast, as per department protocol. A xial, sagittal and coronal reconstructions were obtained. One or more of the following dose reduction techniques were used: Automated exposure control, adjustment of the mA and/or kV according to patient size, and/or iterative reconstruction. Unless otherwise specified, incidental findings do not require dedicated imaging follow-up. Examination is limited by the lack of intravenous contrast material. COMPARISON: No prior exam. FINDINGS: LUNGS: No evidence of airspace or interstitial process. No nodules. PLEURA: No pleural effusion. No pneumothorax. MEDIASTINUM AND LYMPH NODES: No mediastinal mass or fluid collection. Normal size mediastinal, hilar, and axillary lymph nodes. OSSEOUS STRUCTURES AND CHEST WALL: Intact. LIVER: Mild liver cirrhosis pattern. Cholecystectomy clips. PANCREAS: No mass, ductal dilation, or omar-pancreatic fluid. SPLEEN: Normal size. No focal lesion. ADRENALS: Normal; no mass. KIDNEYS: Normal size and contour. No hydronephrosis. Punctate bilateral renal calculi. URINARY BLADDER: Normal contour. GASTROINTESTINAL TRACT: No bowel obstruction, free air, significant free fluid or abscess. Mildly t hickened and slightly distended small bowel loops in the upper abdomen. APPENDIX: Normal appendix. LYMPH NODES: No lymphadenopathy. MUSCULOSKELETAL: Mild superior compression of the L4 vertebral body. This is likely chronic. OTHER: IMPRESSION: Mild liver cirrhosis. Mildly thickened and distended small bowel loops upper abdomen may represent enteritis.
[2024-09-17] MEDS ORDERED: cloNIDine HCL 0.1 MG TAB ONE (22:13)
--- NOTE | 2024-09-17 23:43 | ER ---
Nurse's Notes [facility] Name: Cole Cadena Age: 73 yrs Sex: Female : 1950 Arrival Date: 09/17/2024 Time: 19:58 Bed 18 Private MD: Diagnosis: Migraine without aura, not intractable;Acute fall at home, Left buttock contusion, generalized weakness, physical deconditioning, Uncontrolled Hypertension Presentation: 09/17 20:10 Chief complaint: EMS states: pt is complaining of headache started 3 days ago and some rg5 generalized weakness. 20:10 Coronavirus screen: Client denies travel out of the [place] in the last 14 days. Ebola rg5 Screen: Patient negative for fever greater than or equal to 101.5 degrees Fahrenheit, and additional compatible Ebola Virus Disease symptoms. Initial Sepsis Screen: Does the patient meet any 2 criteria? No. Patient's initial sepsis screen is negative. Does the patient have a suspected source of infection? No. Patient's initial sepsis screen is negative. Risk Assessment: Do you want to hurt yourself or someone else? Patient reports no desire to harm self or others. Onset of symptoms was September 17, 2024. Care prior to arrival: Medication(s) given: zofran 4 mg, IV initiated. 20 GA, in the right antecubital area. Mechanism of Injury: Fall from standing position. 20:10 Method Of Arrival: EMS: [facility] rg5 20:10 Acuity: DYLAN 3 rg5 Triage Assessment: 20:10 Headache History: Denies prior headaches. General: Appears in no apparent distress. rg5 Behavior is calm, cooperative, appropriate for age. Pain: Complains of pain in head Pain currently is 10 out of 10 on a pain scale. Quality of pain is described as aching. EENT: Reports blurred vision. Neuro: Level of Consciousness is awake, alert, obeys commands, Oriented to person, place, time. Cardiovascular: Denies chest pain, Patient's skin is warm and dry. Rhythm is sinus rhythm. Respiratory: Airway is patent Trachea midline Respiratory effort is even, unlabored. GI: Abdomen is round non-distended. : No signs and/or symptoms were reported regarding the genitourinary system. Derm: Skin is intact, Skin is dry, Skin is normal, Skin temperature is warm. Musculoskeletal: Circulation, motion, and sensation intact. Range of motion: intact in all extremities. 20:10 Pain: Pain began 2 hours ago. Also complains of no other associated symptoms. rg5 Historical: - Allergies: 20:10 Tramadol HCl; rg5 - Home Meds: 20:10 amlodipine 10 mg tab 1 tab once daily for Hypertension [Active]; aspirin 81 mg Oral tab rg5 [Active]; omeprazole 20 mg Oral cpDR 1 cap once daily for Gastroesophageal reflux [Active]; lisinopril 40 mg Oral tab 1 tab once daily [Active]; - PMHx: 20:10 Depression; Hypertension; GERD; Anxiety; Asthma; Gout; rg5 - PSHx: 20:10 bypass; Ankle; Cholecystectomy; rg5 - Immunization history:: Adult Immunizations. - Infectious Disease History:: Denies. - Social history:: Smoking status: Patient denies any tobacco usage or history of. - Family history:: not pertinent. Screenin:10 [facility] ED Fall Risk Assessment (Adult) History of falling in the last 3 months, rg5 including since admission Yes- single mechanical fall (1 pt) Confusion or Disorientation No (0 pts) Intoxicated or Sedated No (0 pts) Impaired Gait Yes (1 pt) Mobility Assist Device Used Yes (1 pt) Altered Elimination No (0 pt) Score/Fall Risk Level 3 or more points = High Risk Oriented to surroundings, Maintained a safe environment, Hourly rounding (assess needs \T\ fall precautionary measures) done, Used ambulatory aids as needed (educated on \T\ assisted with). Abuse screen: Denies threats or abuse. Nutritional screening: No deficits noted. Tuberculosis screening: No symptoms or risk factors identified. Assessment: 20:10 Reassessment: SEE TRIAGE ASSESSMENT. rg5 21:30 Reassessment: Patient and/or family updated on plan of care and expected duration. Pain rg5 level reassessed. Patient is alert, oriented x 3, equal unlabored respirations, skin warm/dry/pink. 22:30 Reassessment: Patient and/or family updated on plan of care and expected duration. Pain rg5 level reassessed. Patient is alert, oriented x 3, equal unlabored respirations, skin warm/dry/pink. 23:33 Reassessment: Patient and/or family updated on plan of care and expected duration. Pain rg5 level reassessed. Patient is alert, oriented x 3, equal unlabored respirations, skin warm/dry/pink. Patient states feeling better. Patient states symptoms have improved. Vital Signs: 20:10 BP 170 / 101; Pulse 67; Resp 18; Temp 98.3; Pulse Ox 100% on R/A; Weight 89.36 kg; rg5 Height 5 ft. 3 in. ; Pain 10/10; 20:18 BP 170 / 101; Pulse 65; Resp 17; Temp 98(O); Pulse Ox 100% on R/A; Weight 89.36 kg; rg5 Height 5 ft. 3 in. ; Pain 10/10; 21:00 BP 195 / 113; Pulse 65; Resp 18; Pulse Ox 98% ; Pain 8/10; rg5 22:30 BP 153 / 89; Pulse 64; Resp 17; Pulse Ox 98% on R/A; rg5 23:32 BP 140 / 80; Pulse 67; Resp 18; Pulse Ox 99% on R/A; Pain 3/10; rg5 20:18 Body Mass Index 34.90 (89.36 kg, 160.02 cm) rg5 20:10 Pain Scale: Adult rg5 20:18 Pain Scale: Adult rg5 21:00 Pain Scale: Adult rg5 23:32 Pain Scale: Adult rg5 Conway Coma Score: 21:46 Eye Response: spontaneous(4). Motor Response: obeys commands(6). Verbal Response: sp4 oriented(5). Total: 15. /12 21:39 Eye Response: spontaneous(4). Motor Response: obeys commands(6). Verbal Response: sp4 oriented(5). Total: 15. ED Course: 09/17 20:04 Patient arrived in ED. rv1 20:08 Samy Dawson MD is Attending Physician. sp4 20:10 Arm band placed on left wrist. EKG completed in triage. Results shown to . rg5 20:10 Patient has correct armband on for positive identification. Provided Education on:. rg5 20:10 No provider procedures requiring assistance completed. Maintain EMS IV. Dressing rg5 intact. Site clean \T\ dry. Gauge \T\ site: 20 GAUGE. IV is patent, Flushed right antecubital with 5 ml normal saline. 20:17 Shaw, Ibrahima, RN is Primary Nurse. rg5 21:19 CT Head Brain wo Cont In Process Unspecified. EDMS 21:20 CT Chest Abdomen Pelvis W/O Contrast In Process Unspecified. EDMS 21:24 Triage completed. rg5 23:36 IV discontinued, bleeding controlled, No redness/swelling at site. Pressure dressing rg5 applied. Administered Medications: 20:46 Drug: metoCLOPramide IVP 10 mg IVP once; over 1 to 2 minutes Route: IVP; Site: right rg5 antecubital; 21:51 Follow up: Response: No adverse reaction rg5 20:46 Drug: diphenhydrAMINE IVP 25 mg IVP once Route: IVP; Site: right antecubital; rg5 21:51 Follow up: Response: No adverse reaction; Pain is decreased rg5 20:46 Drug: morphine IVP or IV 4 mg IVP once over 4 mins Route: IVP; Infused Over: 4 mins; rg5 Site: right antecubital; 21:50 Follow up: Response: No adverse reaction; Pain is decreased rg5 22:10 Drug: cloNIDine PO 0.2 mg PO once Route: PO; rg5 22:56 Follow up: Response: No adverse reaction; Blood pressure is lowered rg5 Medication: 20:10 VIS not applicable for this client. rg5 Outcome: 23:42 Discharge ordered by . sp4 09/18 00:09 Discharged to home via wheelchair, rg5 Condition: stable Discharge instructions given to patient, Instructed on discharge instructions, follow up and referral plans. Demonstrated understanding of instructions, follow-up care, medications, Prescriptions given X 1, 00:10 Patient left the ED. rg5 Signatures: Dispatcher [employer] EDMS Elziabeth Funk rv1 Samy Dawson MD MD sp4 Ibrahima Shaw, RN RN rg5 Corrections: (The following items were deleted from the chart) 09/17 21:28 21:27 Reassessment: SEE TRIAGE ASSESSMENT. rg5 rg5
--- NOTE | 2024-09-17 23:43 | EDPHYS ---
Physician Documentation [facility] Name: Cole Mathias Age: 73 yrs Sex: Female : 1950 Arrival Date: 09/17/2024 Time: 19:58 Bed 18 Private MD: ED Physician Samy Dawson HPI: 09/17 20:08 This 73 yrs old Black Female presents to ER via Unassigned with complaints of headache .sp4 20:29 73-year-old female presents with complaint of acute headache also left hip pain after a sp4 fall at home today. Patient was given IV Toradol 15 mg and IV Zofran 4 mg by EMS.. 09/18 21:39 Patient presents with worsening headache also associated fall at home with complaint of sp4 a left buttock left hip pain.. Historical: - Allergies: 09/17 20:10 Tramadol HCl; rg5 - Home Meds: 20:10 amlodipine 10 mg tab 1 tab once daily for Hypertension [Active]; aspirin 81 mg Oral tab rg5 [Active]; omeprazole 20 mg Oral cpDR 1 cap once daily for Gastroesophageal reflux [Active]; lisinopril 40 mg Oral tab 1 tab once daily [Active]; - PMHx: 20:10 Depression; Hypertension; GERD; Anxiety; Asthma; Gout; rg5 - PSHx: 20:10 bypass; Ankle; Cholecystectomy; rg5 - Immunization history:: Adult Immunizations. - Infectious Disease History:: Denies. - Social history:: Smoking status: Patient denies any tobacco usage or history of. - Family history:: not pertinent. ROS: 23:32 Constitutional: Negative for fever, chills, and weight loss, positive headache, sp4 positive left hip pain 23:32 All other systems are negative, Exam: 09/18 21:39 Constitutional: This is a well developed, well nourished patient who is awake, alert, sp4 and in no acute distress. Head/Face: Normocephalic, atraumatic. Eyes: Pupils equal round and reactive to light, extra-ocular motions intact. Lids and lashes normal. Conjunctiva and sclera are not injected. Cornea within normal limits. Periorbital areas with no swelling, redness, or edema. ENT: Nares patent. No nasal discharge, no septal abnormalities noted. Tympanic membranes are normal and external auditory canals are clear. Oropharynx with no redness, swelling, or masses, exudates, or evidence of obstruction, uvula midline. Mucous membranes moist. Neck: Trachea midline, no thyromegaly or masses palpated, and no cervical lymphadenopathy. Supple, full range of motion without nuchal rigidity, or vertebral point tenderness. Chest/axilla: Normal chest wall appearance and motion. Nontender with no deformity. No lesions are appreciated. Cardiovascular: Regular rate and rhythm with a normal S1 and S2. No gallops, murmurs, or rubs. Normal PMI, no JVD. No pulse deficits. Respiratory: Lungs have equal breath sounds bilaterally, clear to auscultation and percussion. No rales, rhonchi or wheezes noted. No increased work of breathing, no retractions or nasal flaring. Abdomen/GI: Soft, with normal bowel sounds. No distension or tympany. No guarding or rebound. No evidence of tenderness throughout. Back: No spinal tenderness. No costovertebral tenderness. Skin: Warm, dry with normal turgor. Normal color with no rashes, no lesions, and no evidence of cellulitis. MS/ Extremity: Pulses equal, no cyanosis. Neurovascular intact. Full, normal range of motion. Neuro: Awake and alert, GCS 15, oriented to person, place, time, and situation. Cranial nerves II-XII grossly intact. Motor strength 5/5 in all extremities. Sensory grossly intact. Psych: Awake, alert, with orientation to person, place and time. Behavior, mood, and affect are within normal limits 21:39 ECG was reviewed by the Attending Physician. EKG at 2146 normal sinus rhythm rate sp4 66, otherwise normal EKG Vital Signs: 09/17 20:10 BP 170 / 101; Pulse 67; Resp 18; Temp 98.3; Pulse Ox 100% on R/A; Weight 89.36 kg; rg5 Height 5 ft. 3 in. ; Pain 10/10; 20:18 BP 170 / 101; Pulse 65; Resp 17; Temp 98(O); Pulse Ox 100% on R/A; Weight 89.36 kg; rg5 Height 5 ft. 3 in. ; Pain 10/10; 21:00 BP 195 / 113; Pulse 65; Resp 18; Pulse Ox 98% ; Pain 8/10; rg5 22:30 BP 153 / 89; Pulse 64; Resp 17; Pulse Ox 98% on R/A; rg5 23:32 BP 140 / 80; Pulse 67; Resp 18; Pulse Ox 99% on R/A; Pain 3/10; rg5 20:18 Body Mass Index 34.90 (89.36 kg, 160.02 cm) rg5 20:10 Pain Scale: Adult rg5 20:18 Pain Scale: Adult rg5 21:00 Pain Scale: Adult rg5 23:32 Pain Scale: Adult rg5 Lovely Coma Score: 21:46 Eye Response: spontaneous(4). Motor Response: obeys commands(6). Verbal Response: sp4 oriented(5). Total: 15. 1212 21:39 Eye Response: spontaneous(4). Motor Response: obeys commands(6). Verbal Response: sp4 oriented(5). Total: 15. MDM: 09/17 20:09 Medical Screening Exam initiated sp4 21:46 Differential diagnosis: hyponatremia, migraine, tension headache, uremia, vasomotor sp4 headache. Data reviewed: vital signs, nurses notes, EMS record, lab test result(s), EKG, radiologic studies. ED course: Patient managed to stand up and ambulate with assistance. Patient is stable for discharge home. Workup did not reveal any significant traumatic injury. Pain has improved after medications.. 23:20 ED course: EXAM: CT CHEST, ABDOMEN AND PELVIS WITHOUT CONTRAST CLINICAL INDICATION: sp4 fall, pelvic pain TECHNIQUE: CT chest, abdomen and pelvis was performed without contrast, as per department protocol. Axial, sagittal and coronal reconstructions were obtained. One or more of the following dose reduction techniques were used: Automated exposure control, adjustment of the mA and/or kV according to patient size, and/or iterative reconstruction. Unless otherwise specified, incidental findings do not require dedicated imaging follow-up. Examination is limited by the lack of intravenous contrast material. COMPARISON: No prior exam. FINDINGS: LUNGS: No evidence of airspace or interstitial process. No nodules. PLEURA: No pleural effusion. No pneumothorax. MEDIASTINUM AND LYMPH NODES: No mediastinal mass or fluid collection. Normal size mediastinal, hilar, and axillary lymph nodes. OSSEOUS STRUCTURES AND CHEST WALL: Intact. LIVER: Mild liver cirrhosis pattern. Cholecystectomy clips. PANCREAS: No mass, ductal dilation, or omar-pancreatic fluid. SPLEEN: Normal size. No focal lesion. ADRENALS: Normal; no mass. KIDNEYS: Normal size and contour. No hydronephrosis. Punctate bilateral renal calculi. URINARYBLADDER: Normal contour. GASTROINTESTINAL TRACT: No bowel obstruction, free air, significant free fluid or abscess. Mildly thickened and slightly distended small bowel loops in the upper abdomen. APPENDIX: Normal appendix. LYMPH NODES: No lymphadenopathy. MUSCULOSKELETAL: Mild superior compression of the L4 vertebral body. This is likely chronic. OTHER: IMPRESSION: Mild liver cirrhosis. Mildly thickened and distended small bowel loops upper abdomen may represent enteritis. . ED course: Name: JENNIFER MATHIAS Acct Number: [id number] :1950 Age:73 Sex:F Ord Phys: Samy Dawson MD Unit Number: [id number] [place] [address] Dr: NONE Status: REG ER ER Exam Date: 09/17/24 EXAM: CT brain without contrast HISTORY: DIZZINESS COMPARISON: 11/06/2023 TECHNIQUE: Multiple contiguous axial images were obtained and a CT of the brain without contrast. Sagittal and coronal reformats were performed. One or more of the following dose reduction techniques were used: Automated exposure control, adjustment of the mA and/or kV according to patient size, and/or iterative reconstruction. FINDINGS: No evidence of hydrocephalus, intracranial hemorrhage, or extra-axial fluid collection. Mild brain atrophy with mild periventricular and deep white matter chronic microvascular ischemic changes present. No evidence of midline shift or areas of brain edema. Mild vertebral atherosclerosis. The calvarium is intact. The visualized paranasal sinuses and mastoid air cells are essentially clear. IMPRESSION: No evidence of acute intracranial abnormality. . 23:23 ED course: IMPRESSION: No evidence of acute intracranial abnormality. . 4 09/17 20:09 Order name: Basic Metabolic Panel; Complete Time: 22:4 09/17 20:09 Order name: CBC with Diff; Complete Time: 22:4 09/17 20:09 Order name: LFT's; Complete Time: 22:4 09/17 20:09 Order name: Troponin HS; Complete Time: 22:4 09/17 20:09 Order name: CT Head Brain wo Cont; Complete Time: 22:4 09/17 20:27 Order name: CT Chest Abdomen Pelvis W/O Contrast; Complete Time: 22:11 sp4 09/17 20:09 Order name: EKG; Complete Time: 20: sp4 09/17 20:09 Order name: Cardiac monitoring; Complete Time: 21:50 sp4 09/17 20:09 Order name: EKG - Nurse/Tech; Complete Time: 21:50 4 09/17 20:09 Order name: IV Saline Lock; Complete Time: 21:50 sp4 09/17 20:09 Order name: Labs collected and sent; Complete Time: 21:50 sp4 09/17 20:09 Order name: O2 Per Protocol; Complete Time: 21:50 4 09/17 20:09 Order name: O2 Sat Monitoring; Complete Time: 21:50 sp4 EC:46 Rate is 66 beats/min. Rhythm is regular, Normal Sinus Rhythm. QRS West is Normal. DC sp4 interval is normal. QRS interval is normal. QT interval is normal. No Q waves. T waves are Normal. No ST changes noted. Clinical impression: Normal ECG. Reviewed by me. Administered Medications: 20:46 Drug: metoCLOPramide IVP 10 mg IVP once; over 1 to 2 minutes Route: IVP; Site: right rg5 antecubital; 21:51 Follow up: Response: No adverse reaction rg5 20:46 Drug: diphenhydrAMINE IVP 25 mg IVP once Route: IVP; Site: right antecubital; rg5 21:51 Follow up: Response: No adverse reaction; Pain is decreased rg5 20:46 Drug: morphine IVP or IV 4 mg IVP once over 4 mins Route: IVP; Infused Over: 4 mins; rg5 Site: right antecubital; 21:50 Follow up: Response: No adverse reaction; Pain is decreased rg5 22:10 Drug: cloNIDine PO 0.2 mg PO once Route: PO; rg5 22:56 Follow up: Response: No adverse reaction; Blood pressure is lowered rg5 Disposition Summary: 09/17/24 23:42 Discharge Ordered Notes: Location: Home sp4 Problem: new sp4 Symptoms: have improved sp4 Condition: Stable sp4 Diagnosis - Migraine without aura, not intractable sp4 - Acute fall at home, Left buttock contusion, generalized weakness, physical sp4 deconditioning, Uncontrolled Hypertension Followup: sp4 - With: Private Physician - When: 7 - 10 days - Reason: Recheck today's complaints Discharge Instructions: - Discharge Summary Sheet sp4 - Migraine Headache, [id number] sp4 Forms: - Patient Portal Instructions sp4 Prescriptions: - Fioricet 50-300-40 mg Oral capsule - take 1 capsule ORAL route every 8 hours PRN headaches; 30 capsule; Refills: 0, sp4 Product Selection Permitted Signatures: Dispatcher [employer] EDMS Samy Dawson MD MD sp4 Ibrahima Shaw RN RN rg5 Corrections: (The following items were deleted from the chart) 20:28 20:28 Chest Abdomen Pelvis Wo Con+CT.RAD.BRZ ordered. EDMS EDMS
[2024-09-18 00:21] VITALS: TEMP 98
[2024-09-18 00:26] VITALS: BP 140/80; O2SAT 99
--- NOTE | 2024-09-19 15:49 | EKG ---
Test Date: 2024-09-17 Test Time: 21:46:37 [employer]: LIVIER MEASUREMENT RESULTS: Intervals: Rate: 66 SD: 184 QRSD: 82 QT: 424 QTc: 444 [place]: P: 69 SD: 184 QRS: 0 T: 91 INTERPRETIVE STATEMENTS: Normal sinus rhythm Possible Left atrial enlargement T wave abnormality, consider anterolateral ischemia Abnormal ECG Compared to ECG 11/06/2023 05:40:45 Possible ischemia now present Prolonged QT interval no longer present T-wave abnormality still present Electronically Signed On 09-19-24 15:46:51 DIRECTOR OF SURGERY by Adelfo Dudley
== END 2024-09-18 00:10 | disposition home or self-care (01) ==
LOC: ER 19:58
DX: G43.009 Migraine without aura, not intractable, without status migrainosus (principal); M25.552 Pain in left hip; R53.1 Weakness; I10 Essential (primary) hypertension; S30.0XXA Contusion of lower back and pelvis, initial encounter; W18.30XA Fall on same level, unspecified, initial encounter; Y93.9 Activity, unspecified; Y92.019 Unspecified place in single-family (private) house as the place of occurrence of the external cause
CPT/HCPCS: 93005; 85025; 80048; 36415; 80076; 84484; 70450; 71250; 74176; 96375; 96374; 99284; J2765; J1200

== ENCOUNTER 2024-12-22 12:43 | Emergency (ER) | payer OTHER ==
--- NOTE | 2024-12-22 13:45 | RAD REPORT ---
EXAMINATION: Head Brain Wo Cont CLINICAL INDICATION: Female, 74 years old.HEADACHE TECHNIQUE: Axial CT images from the skull base to the vertex without intravenous contrast. Coronal an d sagittal reformatted images were created from the data set. One or more of the following dose reduction techniques were used: Automated exposure control, adjustment of the mA and/or kV according to patient size, and/or iterative reconstruction. Unless otherwise specified, incidental findings do not require dedicated imaging follow-up. [id number]. COMPARISON: 09/17/2024 FINDINGS: INTRACRANIAL: No acute intracranial hemorrhage. No hydrocephalus. No mass effect or midline shift. Mo derate chronic small vessel ischemic changes. VASCULATURE: No visualized abnormalities in the arteries or dural venous sinuses. SCALP/SKULL: No calvarial fracture identified. No acute soft tissue abnormality. SINUSES: The visualized paranasal sinuses are mostly clear. No significant mastoid fluid. IMPRESSION: No acute intracranial abnormality. No significant change from prior.
[2024-12-22] MEDS ORDERED: KETOROLAC 30 MG/ML INJ ONE (14:28)
[2024-12-22] MEDS ORDERED: DIPHENHYDRAMINE 50 MG/ML VIAL ONE (14:28)
[2024-12-22] MEDS ORDERED: METOCLOPRAMIDE 10 MG/2mL INJ ONE (14:28)
--- NOTE | 2024-12-22 16:11 | ER ---
Nurse's Notes [facility] Name: Cole Cadena Age: 74 yrs Sex: Female : 1950 Arrival Date: 12/22/2024 Time: 12:43 Bed 13 Private MD: Diagnosis: Headache Presentation: 12/22 13:08 Chief complaint: Patient states: Migraine MATOS and R eye pain for over a month. ll1 Coronavirus screen: Client denies travel out of the [place] in the last 14 days. At this time, the client does not indicate any symptoms associated with coronavirus-19. Ebola Screen: Patient denies travel to an Ebola-affected area in the 21 days before illness onset. Mechanism of Injury: No Mechanism of Injury. The patient denies any loss of vision. Initial Sepsis Screen: Does the patient meet any 2 criteria? No. Patient's initial sepsis screen is negative. Does the patient have a suspected source of infection? No. Patient's initial sepsis screen is negative. Risk Assessment: Do you want to hurt yourself or someone else? Patient reports no desire to harm self or others. Onset of symptoms was November 22, 2024. 13:08 Method Of Arrival: Ambulatory 1 13:08 Acuity: DYLAN 3 ll1 Triage Assessment: 13:08 General: Appears uncomfortable, ill, Behavior is calm, cooperative, appropriate for 1 age. Pain: Complains of pain in head Pain currently is 10 out of 10 on a pain scale. Quality of pain is described as aching, throbbing. EENT: Reports pain in right eye. Neuro: Reports headache weakness. Historical: - Allergies: 13:08 Tramadol HCl; ll1 - PMHx: 13:08 Anxiety; Asthma; Depression; GERD; Gout; Hypertension; ll1 - PSHx: 13:08 Ankle; bypass; Cholecystectomy; ll1 - Immunization history:: Adult Immunizations up to date. - Infectious Disease History:: Denies. - Social history:: Smoking status: Patient denies any tobacco usage or history of. Screenin:30 [facility] ED Fall Risk Assessment (Adult) History of falling in the last 3 months, me1 including since admission No falls in past 3 months (0 pts) Confusion or Disorientation No (0 pts) Intoxicated or Sedated No (0 pts) Impaired Gait No (0 pts) Mobility Assist Device Used No (0 pt) Altered Elimination No (0 pt) Score/Fall Risk Level 0 - 2 = Low Risk Maintained a safe environment, Provided non-skid footwear, Hourly rounding (assess needs \T\ fall precautionary measures) done. Abuse screen: Denies threats or abuse. Nutritional screening: No deficits noted. Tuberculosis screening: No symptoms or risk factors identified. Assessment: 14:30 General: Appears uncomfortable, well groomed, well developed, well nourished. Pain: me1 Complains of pain in head and right eye Pain does not radiate. Pain currently is 10 out of 10 on a pain scale. Quality of pain is described as throbbing, Pain began about a month Is continuous. Neuro: Level of Consciousness is awake, alert, obeys commands, Oriented to person, place, time, situation, Appropriate for age Reports headache. Cardiovascular: Patient's skin is warm and dry. Respiratory: Airway is patent Respiratory effort is even, unlabored, Respiratory pattern is regular, symmetrical. GI: No signs and/or symptoms were reported involving the gastrointestinal system. : No signs and/or symptoms were reported regarding the genitourinary system. EENT: No signs and/or symptoms were reported regarding the EENT system. Derm: Skin is intact, is healthy with good turgor, Skin is pink, warm \T\ dry. Musculoskeletal: No signs and/or symptoms reported regarding the musculoskeletal system. Vital Signs: 13:08 BP 106 / 62; Pulse 60; Resp 17; Temp 97.7; Pulse Ox 95% on R/A; Weight 87.54 kg; Height ll1 5 ft. 2 in. ; Pain 10/10; 15:00 BP 124 / 80; Pulse 58; Resp 18; Pulse Ox 97% ; me1 16:00 BP 128 / 78; Pulse 56; Resp 19; Pulse Ox 93% ; me1 16:33 Pain 3/10; me1 16:33 Pain 2/10; me1 16:33 Pain 3/10; me1 16:34 BP 130 / 82; Pulse 59; Resp 18; Temp 98.2; Pulse Ox 95% ; me1 13:08 Body Mass Index 35.30 (87.54 kg, 157.48 cm) ll1 13:08 Pain Scale: Adult ll1 16:33 Pain Scale: Adult me1 16:33 Pain Scale: Adult me1 16:33 Pain Scale: Adult me1 ED Course: 12:48 Patient arrived in ED. cj3 12:48 Jarred Beltran DO is Attending Physician. ms3 13:10 Triage completed. ll1 13:10 Arm band placed on. ll1 13:36 CT Head Brain wo Cont In Process Unspecified. EDMS 14:25 Tabatha Baker, ASHA is Primary Nurse. me1 14:30 Patient has correct armband on for positive identification. Bed in low position. Call me1 light in reach. Side rails up X2. Provided Education on: POC. Verbalized understanding.. Client placed on continuous cardiac and pulse oximetry monitoring. NIBP monitoring applied. Pulse ox on. NIBP on. 14:30 No provider procedures requiring assistance completed. me1 16:11 Edmundo Dick MD is Referral Physician. ms3 16:42 IV discontinued, intact, bleeding controlled, No redness/swelling at site. Pressure me1 dressing applied. Administered Medications: 14:54 Drug: diphenhydrAMINE IVP 25 mg IVP once Route: IVP; Site: left antecubital; 16:33 Follow up: Pain 2/10 Adult; Response: No adverse reaction; Pain is decreased me1 14:57 Drug: metoCLOPramide IVP 10 mg IVP once; over 1 to 2 minutes Route: IVP; Site: left ss antecubital; 16:33 Follow up: Pain 3/10 Adult; Response: No adverse reaction; Pain is decreased me1 14:57 Drug: Ketorolac IVP 10 mg 10 mg IVP once Route: IVP; Site: left antecubital; ss 16:33 Follow up: Pain 3/10 Adult; Response: No adverse reaction; Pain is decreased me1 Medication: 14:30 VIS not applicable for this client. me1 Outcome: 16:11 Discharge ordered by . ms3 16:42 Discharged to home via wheelchair, me1 16:42 Condition: stable 16:42 Discharge instructions given to patient, Instructed on discharge instructions, follow up and referral plans. Demonstrated understanding of instructions, follow-up care, 16:43 Patient left the ED. me1 Signatures: Dispatcher [employer] EDMT Consuelo Moeller RN RN Masoud Banegas RN RN [facility] Jarred Beltran DO DO ms3 Tabatha Baker RN RN me1 Diana Palomino [email or web address] Corrections: (The following items were deleted from the chart) 15:27 13:08 Chief complaint: Patient states: Migraine MATOS and R eye pain for over a month. ll1 me1
--- NOTE | 2024-12-22 16:11 | EDPHYS ---
Physician Documentation [facility] Name: Cole Cadena Age: 74 yrs Sex: Female : 1950 Arrival Date: 12/22/2024 Time: 12:43 Bed 13 Private MD: ED Physician Jarred Beltran HPI: 12/22 13:18 This 74 yrs old Black Female presents to ER via Ambulatory with complaints of Migraine, ms3 Eye Pain. 13:18 This 74 yrs old Black Female presents to ER via Ambulatory with complaints of Migraine. ms3 13:18 74-year-old female with past medical history of hypertension and migraines presents to [facility] the emergency department for headache that has been ongoing for 1 month. Patient rates the pain a 10/10. She denies nausea, vomiting, shortness of breath. She endorses diarrhea. Patient states her headache is worse with light and sound.. Historical: - Allergies: 13:08 Tramadol HCl; ll1 - PMHx: 13:08 Anxiety; Asthma; Depression; GERD; Gout; Hypertension; ll1 - PSHx: 13:08 Ankle; bypass; Cholecystectomy; ll1 - Immunization history:: Adult Immunizations up to date. - Infectious Disease History:: Denies. - Social history:: Smoking status: Patient denies any tobacco usage or history of. ROS: 13:18 Constitutional: Negative for fever, and chills. Cardiovascular: Negative for chest ms3 pain, and palpitations. Respiratory: Negative for shortness of breath, cough, wheezing, and pleuritic chest pain, 13:18 Abdomen/GI: Positive for diarrhea, Negative for nausea, vomiting, Exam: 13:18 Constitutional: This is a well developed, well nourished patient who is awake, alert, ms3 and in no acute distress. Cardiovascular: Regular rate and rhythm with a normal S1 and S2. No gallops, murmurs, or rubs. Normal PMI, no JVD. No pulse deficits. Respiratory: Lungs have equal breath sounds bilaterally, clear to auscultation and percussion. No rales, rhonchi or wheezes noted. No increased work of breathing, no retractions or nasal flaring. Abdomen/GI: Soft, non-tender, with normal bowel sounds. No distension or tympany. No guarding or rebound. No evidence of tenderness throughout. Skin: Warm, dry with normal turgor. Normal color with no rashes, no lesions, and no evidence of cellulitis. MS/ Extremity: Pulses equal, no cyanosis. Neurovascular intact. Full, normal range of motion. Neuro: Awake and alert, GCS 15, oriented to person, place, time, and situation. Cranial nerves II-XII grossly intact. Motor strength 5/5 in all extremities. Sensory grossly intact. Cerebellar exam normal. Normal gait. Vital Signs: 13:08 BP 106 / 62; Pulse 60; Resp 17; Temp 97.7; Pulse Ox 95% on R/A; Weight 87.54 kg; Height ll1 5 ft. 2 in. ; Pain 10/10; 15:00 BP 124 / 80; Pulse 58; Resp 18; Pulse Ox 97% ; me1 16:00 BP 128 / 78; Pulse 56; Resp 19; Pulse Ox 93% ; me1 16:33 Pain 3/10; me1 16:33 Pain 2/10; me1 16:33 Pain 3/10; me1 16:34 BP 130 / 82; Pulse 59; Resp 18; Temp 98.2; Pulse Ox 95% ; me1 13:08 Body Mass Index 35.30 (87.54 kg, 157.48 cm) ll1 13:08 Pain Scale: Adult ll1 16:33 Pain Scale: Adult me1 16:33 Pain Scale: Adult me1 16:33 Pain Scale: Adult me1 MDM: 13:16 Medical Screening Exam initiated ms3 13:20 Differential diagnosis: hypoglycemia, hyponatremia, intracerebral hemorrhage, migraine, ms3 subarachnoid bleed, vasomotor headache. 17:38 Data reviewed: vital signs, nurses notes, radiologic studies, and as a result, I will ms3 discharge patient. I considered the following discharge prescriptions or medication management in the emergency department Medications were administered in the Emergency Department. See MAR. Counseling: I had a detailed discussion with the patient and/or guardian regarding the historical points, exam findings, and any diagnostic results supporting the discharge/admit diagnosis, radiology results, the need for outpatient follow up, to return to the emergency department if symptoms worsen or persist or if there are any questions or concerns that arise at home. Special discussion: I discussed with the patient/guardian in detail that at this point there is no indication for admission to the hospital. It is understood, however, that if the symptoms persist or worsen the patient needs to return immediately for re-evaluation. ED course: On reevaluation patient symptoms improved, patient is alert and orient x 4, in no apparent distress, nontoxic-appearing, speaking full sentences. Patient to follow-up with Dr. Dick in 2 to 3 days. Patient understands and agrees with plan. All questions were answered. Return precautions discussed include worsening symptoms, numbness, weakness, or any other concerns.. 12/22 13:17 Order name: CT Head Brain wo Cont; Complete Time: 14:02 ms3 Administered Medications: 14:54 Drug: diphenhydrAMINE IVP 25 mg IVP once Route: IVP; Site: left antecubital; 16:33 Follow up: Pain 2/10 Adult; Response: No adverse reaction; Pain is decreased me1 14:57 Drug: metoCLOPramide IVP 10 mg IVP once; over 1 to 2 minutes Route: IVP; Site: left ss antecubital; 16:33 Follow up: Pain 3/10 Adult; Response: No adverse reaction; Pain is decreased me1 14:57 Drug: Ketorolac IVP 10 mg 10 mg IVP once Route: IVP; Site: left antecubital; ss 16:33 Follow up: Pain 3/10 Adult; Response: No adverse reaction; Pain is decreased me1 Disposition Summary: 12/22/24 16:11 Discharge Ordered Notes: Location: Home ms3 Condition: Stable ms3 Diagnosis - Headache ms3 Followup: ms3 - With: Edmundo Dick MD - When: 2 - 3 days - Reason: Recheck today's complaints Discharge Instructions: - Discharge Summary Sheet ms3 - General Headache Without Cause ms3 Forms: - Medication Reconciliation Form ms3 - Antibiotic Education ms3 - Prescription Opioid Use ms3 - Patient Portal Instructions ms3 - Leadership Thank You Letter ms3 Signatures: Dispatcher [employer] Consuelo Kinney RN RN Masoud Banegas RN RN 1 Jarred Beltran DO DO ms3 Tabatha Baker RN RN me1
[2024-12-22 17:26] VITALS: BP 130/82; TEMP 98.2; O2SAT 95
== END 2024-12-22 16:43 | disposition home or self-care (01) ==
LOC: ER 12:43
DX: R51.9 Headache, unspecified (principal)
CPT/HCPCS: 70450; 96375; 96374; 99284; J2765; J1200